=== PATIENT | female | born 1945 | race Caucasian/White ===

== ENCOUNTER 2019-07-28 10:46 | Observation (INO) | payer MEDICARE, SELFPAY ==
--- NOTE | ~2019-07-28 | CT_ITS ---
EXAMINATION: CT abdomen pelvis w con INDICATION: Diarrhea and vomiting TECHNIQUE: Computed tomographic images of the abdomen and pelvis were obtained after the administrati on of 100 cc of Omnipaque 350 intravenous contrast. The dose-length product (DLP) was 266.83 mGy-cm. Automated exposure control and iterative reconstruction technique were employed. COMPARISON: None available FINDINGS: The lung bases are clear. The heart size is normal. There is a small sliding hiatal hernia. The liver, spleen, pancreas, gallbladder, and adrenal glands are normal. There is a 1.3 cm stone of the left kidney. The right kidney is unremarkable. There is no hydronephrosis or hydroureter. There i s questionable mild wall thickening of the transverse colon. There is mild lumbar spondylosis. No pa thologically enlarged abdominal or pelvic lymph nodes are identified. There is no free intraperitonea l gas or evidence of bowel obstruction. IMPRESSION: 1. Possible mild wall thickening of the transverse colon which could reflect colitis or enteritis. Reviewed, dictated and finalized at location A. DER IMPRESSION: 1. Possible mild wall thickening of the transverse colon which could reflect co litis or enteritis.
--- NOTE | 2019-07-28 11:03 | ECG_ITS ---
Measurements Intervals [place] Rate: 93 P: 65 [place]: 159 QRS: 49 QRSD: 80 T: 26 QT: 329 QTc: 411 Interpretive Statements SINUS RHYTHM BORDERLINE ST-T WAVE ABNORMALITY- INF/LAT LEADS BASELINE WANDER- V4 BORDERLINE ECG Electronically Signed On 07-28-2019 13:19:07 ALLIGATOR HUNTER by Tez Marie D.O.
[2019-07-28 11:10] VITALS: BP 93/70; PULSE 92; RESP 18; TEMP 36.6; O2SAT 100
[2019-07-28 11:25] LABS: Basophils Absolute Auto 0.02 K/mm3 (0.00-0.10); Basophils Percent Auto 0.1 % (0.0-1.0); Eosinophils Absolute Auto 0.08 K/mm3 (0.02-0.50); Eosinophils Percent Auto 0.6 % (1.0-6.0); Hematocrit 41.7 % (35.0-42.0); Hemoglobin 13.9 g/dL (11.7-13.8); Immature Granulocyte Absolute 0.05 K/mm3 (0.00-0.00); Immature Granulocyte Percent A 0.4 % (0.0-0.0); Lymphocytes Absolute Auto 0.63 K/mm3 (1.10-4.50); Lymphocytes Percent Auto 4.6 % (18.0-42.0); Mean Corpuscular HGB Conc 33.3 g/dL (32.0-36.0); Mean Corpuscular Volume 90.1 fL (78.0-102.0); Mean Platelet Volume 9.6 fl (9.2-11.8); Monocytes Absolute Auto 0.84 K/mm3 (0.10-0.90); Monocytes Percent Auto 6.2 % (2.0-11.0); Neutrophils Percent Auto 88.1 % (50.0-70.0); Platelet Count Result 254 K/mm3 (150-420); Red Blood Count 4.63 M/mm3 (4.20-5.40); Red Cell Distribution Width 12.8 % (11.6-14.4); White Blood Count 13.6 K/mm3 (4.8-10.8)
[2019-07-28] MEDS: KETOROLAC 30 MG/ML VIAL (*BKC) IV PUSH (11:30)
[2019-07-28] MEDS: ONDANSETRON INJ 4 MG/2 ML VIAL IV PUSH (11:37)
[2019-07-28] MEDS: PANTOPRAZOLE SODIUM IV 40 MG VIAL IV PUSH (11:38)
[2019-07-28] MEDS: SODIUM CHLORIDE 0.9% IV 1,000 ML 999 ML IV CONT (11:39)
[2019-07-28 11:45] LABS: Alanine Aminotransferase 30 U/L (14-59); Albumin Level 4.5 g/dL (3.4-5.0); Alkaline Phosphatase 102 U/L (46-116); Anion Gap 16.4 mmol/L (7-16); Aspartate Amino Transferase 22 U/L (15-37); Bilirubin,Total 0.6 mg/dL (0.00-1.00); Blood Urea Nitrogen 22 mg/dL (7-18); Calcium 10.2 mg/dL (8.5-10.1); Carbon Dioxide 25 mmol/L (21-32); Chloride 105 mmol/L (98-108); Estimated CRCL calculation 32 ml/min; Estimated Glomerular Filt Rate 49; Glucose 103 mg/dL (70-99); Lactic Acid Reflex 1.8 mmol/L (0.4-2.0); Lipase 146 U/L (73-393); Osmolality Calculated 297 mOsm/kg (285-295); Potassium 4.4 mmol/L (3.5-5.1); Sodium 142 mmol/L (136-145); Total Protein 8.7 g/dL (6.4-8.2)
[2019-07-28 11:49] LABS: Troponin I < 0.02 ng/mL (0.00-0.056)
[2019-07-28 12:35] LABS: Thyroid Stimulating Hormone 2.75 uIU/mL (0.36-3.74)
--- NOTE | 2019-07-28 12:42 | ED.ABDPAIN ---
HPI - Abdominal Pain General Chief Complaint: Abdominal Pain Stated Complaint: N/V Related Data Home Medications Medication Instructions Recorded Confirmed hydrochlorothiazide 12.5 mg PO DAILY 07/28/19 07/28/19 lisinopril 20 mg PO DAILY 07/28/19 07/28/19 omeprazole 40 mg PO DAILY 07/28/19 07/28/19 propranolol 20 mg PO Q12H 07/28/19 07/28/19 simvastatin 20 mg PO DAILY 07/28/19 07/28/19 Allergies Allergy/AdvReac Type Severity Reaction Status Date / Time No Known Allergies Allergy Verified 07/28/19 11:30 Course Vital Signs Vital signs: Vital Signs Temperature 36.6 C 07/28/19 11:10 Pulse Rate 92 07/28/19 11:10 Respiratory Rate 18 07/28/19 11:10 Blood Pressure 93/70 L 07/28/19 11:10 Pulse Oximetry 100 07/28/19 11:10 Temperature 36.6 C 07/28/19 11:10 Pulse Rate 92 07/28/19 11:10 Respiratory Rate 18 07/28/19 11:10 Blood Pressure 93/70 L 07/28/19 11:10 Pulse Oximetry 100 07/28/19 11:10 MDM - Abdominal Pain Lab Data Result diagrams: 07/28/19 11:18 07/28/19 11:18 Labs: Lab Results 07/28/19 07/28/19 07/28/19 Range/Units 11:07 11:18 11:18 WBC 13.6 H (4.8-10.8) K/mm3 RBC 4.63 (4.20-5.40) M/mm3 Hgb 13.9 H (11.7-13.8) g/dL Hct 41.7 (35.0-42.0) % MCV 90.1 (78.0-102.0) fL MCH 30.0 (27.0-31.0) pg MCHC 33.3 (32.0-36.0) g/dL RDW 12.8 (11.6-14.4) % Plt Count 254 (150-420) K/mm3 MPV 9.6 (9.2-11.8) fl Immature Gran % (Auto) 0.4 H (0.0-0.0) % Neut % (Auto) 88.1 H (50.0-70.0) % Lymph % (Auto) 4.6 L (18.0-42.0) % Sevier % (Auto) 6.2 (2.0-11.0) % Eos % (Auto) 0.6 L (1.0-6.0) % Baso % (Auto) 0.1 (0.0-1.0) % Lymph # (Auto) 0.63 L (1.10-4.50) K/mm3 Sevier # (Auto) 0.84 (0.10-0.90) K/mm3 Eos # (Auto) 0.08 (0.02-0.50) K/mm3 Baso # (Auto) 0.02 (0.00-0.10) K/mm3 Abs Immat Gran (auto) 0.05 H (0.00-0.00) K/mm3 Absolute Neuts (auto) 12.0 H (1.7-7.2) K/mm3 Absolute Nucleated RBC 0.00 (0.00-0.00) K/mm3 Nucleated RBC % 0.0 (0-0.0) % Sodium 142 (136-145) mmol/L Potassium 4.4 (3.5-5.1) mmol/L Chloride 105 (98-108) mmol/L Carbon Dioxide 25 (21-32) mmol/L Anion Gap 16.4 H (7-16) mmol/L BUN 22 H (7-18) mg/dL Creatinine 1.10 H (0.55-1.02) mg/dL Estim Creat Clear Calc 32 ml/min Estimated GFR 49 L (59 - ) Glucose 103 H (70-99) mg/dL Calculated Osmolality 297 H (285-295) mOsm/kg Lactic Acid (0.4-2.0) mmol/L Calcium 10.2 H (8.5-10.1) mg/dL Total Bilirubin 0.6 (0.00-1.00) mg/dL AST 22 (15-37) U/L ALT 30 (14-59) U/L Alkaline Phosphatase 102 (46-116) U/L Troponin I < 0.02 (0.00-0.056) ng/mL Total Protein 8.7 H (6.4-8.2) g/dL Albumin 4.5 (3.4-5.0) g/dL Lipase 146 (73-393) U/L TSH 2.75 (0.36-3.74) uIU/mL 07/28/19 Range/Units 11:18 WBC (4.8-10.8) K/mm3 RBC (4.20-5.40) M/mm3 Hgb (11.7-13.8) g/dL Hct (35.0-42.0) % MCV (78.0-102.0) fL MCH (27.0-31.0) pg MCHC (32.0-36.0) g/dL RDW (11.6-14.4) % Plt Count (150-420) K/mm3 MPV (9.2-11.8) fl Immature Gran % (Auto) (0.0-0.0) % Neut % (Auto) (50.0-70.0) % Lymph % (Auto) (18.0-42.0) % Sevier % (Auto) (2.0-11.0) % Eos % (Auto) (1.0-6.0) % Baso % (Auto) (0.0-1.0) % Lymph # (Auto) (1.10-4.50) K/mm3 Sevier # (Auto) (0.10-0.90) K/mm3 Eos # (Auto) (0.02-0.50) K/mm3 Baso # (Auto) (0.00-0.10) K/mm3 Abs Immat Gran (auto) (0.00-0.00) K/mm3 Absolute Neuts (auto) (1.7-7.2) K/mm3 Absolute Nucleated RBC (0.00-0.00) K/mm3 Nucleated RBC % (0-0.0) % Sodium (136-145) mmol/L Potassium (3.5-5.1) mmol/L Chloride (98-108) mmol/L Carbon Dioxide (21-32) mmol/L Anion Gap (7-16) mmol/L BUN (7-18) mg/dL Creatinine (0.55-1.02) mg/dL Estim Creat Clear Calc ml/min Estimated GFR (59 - ) Glucose (70-99) mg/dL Calculated Osmolality (285-295
[2019-07-28 13:11] LABS: Appearance Urine Clear (Clear); Bilirubin Urine Negative (Negative); Blood Urine Negative (Negative); Color Urine Yellow (Yellow); Glucose Urine UA Negative (Negative); Ketones Urine Negative (Negative); Protein Urine Negative (Negative); Specific Grav Ur 1.015 (1.010-1.020); Urobilinogen Urine 0.2 mg/dL (0.2-1.0); pH Urine 5.5 (5.0-8.0)
[2019-07-28 13:14] LABS: Add Urine Microscopic? NO
[2019-07-28 13:29] VITALS: BP 106/61; PULSE 92; RESP 18; TEMP 36.6; O2SAT 97
[2019-07-28 13:50] VITALS: BP 100/55; PULSE 84; RESP 18; TEMP 37.3; O2SAT 100; BMI 24.7
[2019-07-28 14:00] VITALS: BP 100/55; PULSE 84; RESP 18; TEMP 37.3; O2SAT 100
--- NOTE | 2019-07-28 14:01 | PC.NURSE ---
Admitted to an observation bed for dehydration and colitits, started having abdominal discomfort last night, worse this am and vomiting and diarrhea this am about 0600, feels weak
--- NOTE | 2019-07-28 15:54 | PC.NURSE ---
Napping, no evidence of pain noted, call light in reach, is on clear liquid diet as ordered
[2019-07-28 16:02] LABS: Leukocyte Esterase Ur Negative LEU/UL (Negative); Nitrate Urine Negative (Negative)
--- NOTE | 2019-07-28 16:11 | PM.IMHP ---
H&P: HPI History of Present Illness Chief complaint: N/V <Ilene Cisneros NP - Last Filed: 07/30/19 05:37> Narrative: Nguyen Herron is a 74 year old female admitted with vomiting and diarrhea, nausea, malaise, dehydration, LUQ abdominal discomfort through to the back discomfort. Yesterday, all evening, she reports having lower back and abdominal discomfort. She went to bed and was awakened at 6am with the urgency to stool. She started with brown soft stools that changed to clear liquid diarrhea. She stated that she was unable to leave the toilet, without having diarrhea; even having incontinence in her clothing. She also started vomiting around 8:30am this morning, and reports at least 5 episodes of vomiting. Her liquid stooling was not stopping on its own and she was feeling light-headed and weaker, so she felt it best to drive to the ED, taking her trash bucket to vomit in on the way. 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 She has a rectal stimulator implant for the last 1 year, placed at [place]. The stimulator is to help control her stool incontinence and rectal leaking of BM. She has not had any recent Antibx., denies any other sick family/friends, denies food poisoning concerns, denies raw fish consumption, and stated that her only eating out was [employer] hamburger yesterday. Her last and most similar episode of GI upset was a couple months ago, in April 2019. When she had about 4 episodes of watery diarrhea about 2 hours apart, but denies any vomiting at that time. She stated that she never has vomiting, only diarrhea issues typically. <Ilene Cisneros NP - Last Filed: 07/30/19 05:37> Review of Systems Review of Systems: All systems reviewed & are unremarkable except as noted in HPI and below <Ilene Cisneros NP - Last Filed: 07/30/19 05:37> [facility] Family History Family History: Family History Father Bladder cancer Mother Abdominal malignancy Abdominal mass Son No problems noted. <Ilene Cisneros NP - Last Filed: 07/30/19 05:37> Social History Social History: Social History Smoking status: Never smoker Second hand tobacco smoke exposure: Yes (none for 7 years) Alcohol intake: never Substance use: never Gender identity (if verbalized by the patient): Female Spiritual care concerns: No Agree to blood products: Yes <Ilene Cisneros NP - Last Filed: 07/30/19 05:37> Meds Home Medications and Allergies Home medications: Home Medications Medication Instructions Recorded Confirmed Type hydrochlorothiazide 12.5 mg PO DAILY 07/28/19 07/28/19 History lisinopril 20 mg PO DAILY 07/28/19 07/28/19 History omeprazole 40 mg PO DAILY 07/28/19 07/28/19 History propranolol 20 mg PO Q12H 07/28/19 07/28/19 History simvastatin 20 mg PO DAILY 07/28/19 07/28/19 History <Ilene Cisneros NP - Last Filed: 07/30/19 05:37> Allergies/Adverse reactions: Allergies Allergy/AdvReac Type Severity Reaction Status Date / Time No Known Allergies Allergy Verified 07/28/19 11:30 <Ilene Cisneros NP - Last Filed: 07/30/19 05:37> Vital Signs Vital Signs - 24 hr 07/28/19 11:10 07/28/19 13:29 07/28/19 13:50 Temperature 36.6 C 36.6 C 37.3 C Pulse Rate 92 92 84 Respiratory Rate 18 18 18 Blood Pressure 93/70 L 106/61 100/55 L Pulse Oximetry 100 97 100 07/28/19 14:00 Temperature 37.3 C Pulse Rate 84 Respiratory Rate 18 Blood Pressure 100/55 L Pulse Oximetry 100 <Ilene Cisneros NP - Last Filed: 07/30/19 05:37> Exam Narrative: Exam Narrative: Pleasant, somewhat nauseated and upset stomach, tender and hyperactive bowels. <Ilene Cisneros NP - Last Filed: 07/30/19 05:37> Const: General: cooperative, healthy appearing and in distress mild and moderate <Ilene Cisneros NP - Last Renato
--- NOTE | 2019-07-28 17:20 | PC.NURSE ---
advised of stool samples needed, states doesn't feel like she will have any more, what was coming out at home was clear, no stools since admit
[2019-07-28] MEDS: SODIUM CHLORIDE 0.9% IV 1,000 ML 100 ML IV CONT (17:29)
--- NOTE | 2019-07-28 18:26 | PC.NURSE ---
fluids infusing, denies needs, no worsening pain, no vomiting, tolerated clear liquid tray
[2019-07-28 18:31] LABS: Magnesium 1.9 mg/dL (1.8-2.4)
[2019-07-28 22:00] VITALS: BP 101/56; PULSE 78; RESP 18; TEMP 36.3; O2SAT 99
[2019-07-29] MEDS: SODIUM CHLORIDE 0.9% IV 1,000 ML 100 ML IV CONT ×2 (03:38→13:58)
[2019-07-29] MEDS: ACETAMINOPHEN 325 MG TABLET 650 MG PO (03:43)
[2019-07-29] MEDS: ONDANSETRON INJ 4 MG/2 ML VIAL IV PUSH ×2 (05:00→09:57)
[2019-07-29 05:54] VITALS: BP 104/64; PULSE 82; RESP 18; TEMP 36.3; O2SAT 97
[2019-07-29 05:55] LABS: Basophils Absolute Auto 0.01 K/mm3 (0.00-0.10); Basophils Percent Auto 0.2 % (0.0-1.0); Eosinophils Absolute Auto 0.15 K/mm3 (0.02-0.50); Eosinophils Percent Auto 2.7 % (1.0-6.0); Hematocrit 32.8 % (35.0-42.0); Hemoglobin 10.6 g/dL (11.7-13.8); Immature Granulocyte Absolute 0.01 K/mm3 (0.00-0.00); Immature Granulocyte Percent A 0.2 % (0.0-0.0); Lymphocytes Absolute Auto 1.31 K/mm3 (1.10-4.50); Lymphocytes Percent Auto 23.4 % (18.0-42.0); Mean Corpuscular HGB Conc 32.3 g/dL (32.0-36.0); Mean Corpuscular Hemoglobin 29.9 pg (27.0-31.0); Mean Corpuscular Volume 92.4 fL (78.0-102.0); Mean Platelet Volume 10.3 fl (9.2-11.8); Monocytes Absolute Auto 0.34 K/mm3 (0.10-0.90); Monocytes Percent Auto 6.1 % (2.0-11.0); Neutrophils Absolute Auto 3.8 K/mm3 (1.7-7.2); Neutrophils Percent Auto 67.4 % (50.0-70.0); Platelet Count Result 187 K/mm3 (150-420); Red Blood Count 3.55 M/mm3 (4.20-5.40); Red Cell Distribution Width 13.2 % (11.6-14.4); White Blood Count 5.6 K/mm3 (4.8-10.8)
[2019-07-29 06:14] LABS: Alanine Aminotransferase 23 U/L (14-59); Albumin Level 3.3 g/dL (3.4-5.0); Alkaline Phosphatase 71 U/L (46-116); Anion Gap 12.1 mmol/L (7-16); Aspartate Amino Transferase 18 U/L (15-37); Bilirubin,Total 0.6 mg/dL (0.00-1.00); Blood Urea Nitrogen 18 mg/dL (7-18); Calcium 8.6 mg/dL (8.5-10.1); Carbon Dioxide 28 mmol/L (21-32); Chloride 109 mmol/L (98-108); Estimated CRCL calculation 38 ml/min; Estimated Glomerular Filt Rate 59; Glucose 87 mg/dL (70-99); Osmolality Calculated 300 mOsm/kg (285-295); Potassium 4.1 mmol/L (3.5-5.1); Sodium 145 mmol/L (136-145); Total Protein 6.3 g/dL (6.4-8.2)
[2019-07-29 08:14] VITALS: BP 108/58; PULSE 75; RESP 18; TEMP 36.6; O2SAT 95
[2019-07-29] MEDS: PANTOPRAZOLE SODIUM IV 40 MG VIAL IV PUSH (09:11)
--- NOTE | 2019-07-29 10:00 | PC.NURSE ---
nauseated, given IV zofran for complaint
[2019-07-29] MEDS: ACETAMINOPHEN 325 MG TABLET PO (10:19)
[2019-07-29] MEDS: KETOROLAC 15 MG/ML VIAL (*BKC) IV PUSH (10:20)
[2019-07-29] MEDS: FLUTICASONE PROPIONATE 0.05% NA SPR 16 GM BTL (*BKC) 2 SPRAY NASAL (10:29)
--- NOTE | 2019-07-29 10:59 | PC.NURSE ---
SBA up to void, pain at a 5, nausea ok, belching
--- NOTE | 2019-07-29 12:35 | PC.NURSE ---
EAting lunch, feeling better, no further nausea
[2019-07-29 13:35] VITALS: BP 111/66; PULSE 86; RESP 18
[2019-07-29 13:54] VITALS: BP 111/78; BP 116/71; PULSE 88; PULSE 93
--- NOTE | 2019-07-29 13:55 | PC.NURSE ---
orthostatic vitals done, fluids discontinued, up independent in room
[2019-07-29 14:00] VITALS: BP 111/78; PULSE 93; RESP 18; TEMP 36.1; O2SAT 95
--- NOTE | 2019-07-29 14:35 | PC.NURSE ---
discharge to home, no questions upon discharge, copy of instructons to patient
--- NOTE | 2019-07-29 15:00 | PM.DS ---
DS: Diagnosis Admitting Diagnosis Admitting Diagnosis: Noninfective gastroenteritis and colitis, unspecified <Ilene Cisneros NP - Last Filed: 08/12/19 14:19> Discharge Diagnosis (1) Colitis: Code(s): K52.9 - Noninfective gastroenteritis and colitis, unspecified <Ilene Cisneros NP - Last Filed: 08/12/19 14:19> Status: Acute <Ilene Cisneros NP - Last Filed: 08/12/19 14:19> Assessment and Plan: CT Abdomen showed: small sliding hiatal hernia. The liver, spleen, pancreas, gallbladder, and adrenal glands are normal. There is a 1.3 cm stone of the left kidney. The right kidney is unremarkable. There is no hydronephrosis or hydroureter. There is questionable mild wall thickening of the transverse colon. There is mild lumbar spondylosis. No pathologically enlarged abdominal or pelvic lymph nodes are identified. There is no free intraperitoneal gas or evidence of bowel obstruction. IMPRESSION: 1. Possible mild wall thickening of the transverse colon which could reflect colitis or enteritis. IVFs continuous at 100ml/hr encourage oral hydration zofran PRN Protonix IV I/O strict clear liquid diet with advancing diet in the morning to Soft Mcpherson foods Tolerated oral hydration and breakfast/lunch eating 25-50% of her meals with no N/V/D. No BM output today at all. F/U with her PCP Dr. Mcfarland, her colo-rectal surgeon, and a GI specialist after discharge. ordered outpatient stool cultures to be done, if her diarrhea returns. <Ilene Cisneros NP - Last Filed: 08/12/19 14:19> (2) Admitted with dehydration: Code(s): Z78.9 - Other specified health status <Ilene Cisneros NP - Last Filed: 08/12/19 14:19> Status: Acute <Ilene Cisneros NP - Last Filed: 08/12/19 14:19> Assessment and Plan: IVFs continuous at 100ml/hr encourage oral hydration zofran PRN Protonix IV I/O strict clear liquid diet with advancing diet in the morning to Soft Mcpherson foods Prior to Discharge she had tolerated 2 meals with no N/V/D/ after those meals. She is keeping oral hydration down. She has not had any BMs or any stool output at all since admission. Tolerated oral hydration and breakfast/lunch eating 25-50% of her meals with no N/V/D. No BM output today at all. F/U with her PCP Dr. Mcfarland, her colo-rectal surgeon, and a GI specialist after discharge. ordered outpatient stool cultures to be done, if her diarrhea returns. <Ilene Cisneros NP - Last Filed: 08/12/19 14:19> DS: Summary Time Spent with Patient Time attestation: Total time spent providing and/or coordinating discharge services: <Ilene Cisneros NP - Last Filed: 08/12/19 14:19> Exam Narrative: Exam Narrative: Pleasant, somewhat nauseated and upset stomach, tender and hyperactive bowels. <Ilene Cisneros NP - Last Filed: 08/12/19 14:19> Const: General: cooperative, healthy appearing and in distress mild and moderate <Ilene Cisneros NP - Last Filed: 08/12/19 14:19> Nutritional Appearance: average body habitus and well nourished <Ilene Cisneros NP - Last Filed: 08/12/19 14:19> Orientation/consciousness: oriented to person and oriented x3 <Ilene Cisneros NP - Last Filed: 08/12/19 14:19> Limitations: no limitations <Ilene Cisneros NP - Last Filed: 08/12/19 14:19> Other: Pleasant, somewhat nauseated and upset stomach, tender and hyperactive bowels. <Ilene Cisneros NP - Last Filed: 08/12/19 14:19> HENMT: Head: normal to inspection <Ilene Cisneros NP - Last Filed: 08/12/19 14:19> Other: Pleasant, somewhat nauseated and upset stomach, tender and hyperactive bowels. <Ilene Cisneros NP - Last Filed: 08/12/19 14:19> Eyes: General: appearance normal, both eyes and all related structures <Ilene Cisneros NP - Last Filed: 08/12/19 14:19> Eyelids: eyelids normal <Ilene Cisneros NP - Last Filed: 08/12/19 14:19> Conjunctivae: conjunctivae normal <Ilene L. Cisneros, VACUUM FILTER OPERATOR - Last Filed: 08/12/19 14:19> Pupils: VITALY <Ilene Haley
--- NOTE | 2019-07-31 13:54 | PC.NURSE ---
Discharge call back no answer unable to contact, left a message.
--- NOTE | 2019-08-01 12:33 | PC.NURSE ---
Discharge Call Back Patient returned call. Patient has follow-up appointment with Dr. Mcfarland. Medications were not sent to [facility] initially but hospital staff got it straightened out. Patient stated she understood her Discharge instructions written and verbal.
== END 2019-07-29 14:52 | disposition home or self-care (01) ==
LOC: CHSED 13:08 → CHS2ND 13:12
PROVIDERS: Nurse Practitioner; Admitting Provider Emergency Medicine; Emergency Provider Emergency Medicine; Visit Provider Emergency Medicine
DX: K52.9 Noninfective gastroenteritis and colitis, unspecified (principal); E86.0 Dehydration; E78.5 Hyperlipidemia, unspecified; I10 Essential (primary) hypertension
CPT/HCPCS: 36415; 74177; 80053; 81003; 83605; 83690; 83735; 84100; 84443; 84484; 85025; 87040; 87185; 93005; 96361; 96374; 96375; 96376; 99283; 99285; A9270; C9113; G0378; J1885; J2405; J7030; Q9967

== ENCOUNTER 2019-10-24 10:18 | Outpatient (CLI) | payer MEDICARE, SELFPAY ==
--- NOTE | ~2019-10-24 | DEXA_ITS ---
BMD(1) Young-Adult(2) Age-Matched(3) Region (g/cm2) T-score Z-score WHO Classification L1 1.003 -1.1 0.7 Osteopenia L2 1.006 -1.7 0.1 Osteopenia L3 0.995 -1.8 0.1 Osteopenia L4 1.225 0.0 1.9 Normal L2-L3 1.000 -1.7 0.1 Osteopenia Trend: L2-L3 Change vs Change vs Measured Age BMD(1) Baseline Previous Date [age]years) (g/cm2) (%) (%) 10/24/2019 [age] 1.000 baseline - 1 - Statistically 68% of repeat scans fall within 1SD (+- 0.020 g/cm2 for AP Spine L2-L3) 2 - [place] (Combined NHANES (ages 20-30) / Tidy Books (ages 20-40)) AP Spine Reference Population (v112) 3 - Matched for Age, Weight (females 25-100 kg), Ethnic 11 - World Health Organization - Definition of Osteoporosis and Osteopenia for Women: Normal = T-score at or above -1.0 SD; Osteopenia = T-score between -1.0 and -2.5 SD; Osteoporosis = T-score at or below -2.5 SD; (WHO definitions only apply when a young healthy Women reference database is used to determine T-scores.) Printed: 10/24/2019 10:50:39 AM (13.60)76:3.00:50.00:12.0 0.00:10.56 0.60x1.05 21.6:%Fat=36.2% 0.00:0.00 0.00:0.00 Filename: [id number] Scan Mode: Standard;OneScan 37.0 UpTo [id number] BMD(1) Young-Adult(2,7) Age-Matched(3) Region (g/cm2) T-score Z-score WHO Classification Neck Left 0.780 -1.9 0.0 Osteopenia Right 0.811 -1.6 0.2 Osteopenia Mean 0.795 -1.7 0.1 Osteopenia Difference 0.031 0.2 0.2 - Total Left 0.760 -2.0 -0.3 Osteopenia Right 0.778 -1.8 -0.1 Osteopenia Mean 0.769 -1.9 -0.2 Osteopenia Difference 0.017 0.1 0.1 - Hip [place] Length Comparison (mm) (Right = 97.2 mm) (Mean = 103.0 mm) (Left = 97.5 mm) Trend: Total Mean Change vs Change vs Measured Age BMD(1) Baseline Previous Date (years) (g/cm2) (%) (%) 10/24/2019 74.7 0.769 baseline - 1 - Statistically 68% of repeat scans fall within 1SD (+- 0.010 g/cm2 for DualFemur Total) 2 - [place] (Combined NHANES (ages 20-30) / [employer] (ages 20-40)) Femur Reference Population (v112) 3 - Matched for Age, Weight (females 25-100 kg), Ethnic 7 - DualFemur Total T-score difference is 0.1. Asymmetry is None. 11 - World Health Organization - Definition of Osteoporosis and Osteopenia for Women: Normal = T-score at or above -1.0 SD; Osteopenia = T-score between -1.0 and -2.5 SD; Osteoporosis = T-score at or below -2.5 SD; (WHO definitions only apply when a young healthy Women reference database is used to determine T-scores.) Printed: 10/24/2019 10:50:40 AM (13.60); Filename: [id number]; Right Femur; 17.6:%Fat=29.7%; Neck Angle (deg)= 66; Scan Mode: Standard 37.0 uGy; Left Femur; 16.5:%Fat=32.6%; Neck Angle (deg)= 63; Scan Mode: Standard 37.0 uGy [employer] [id number] Dear Praveena Mcfarland, Your patient Nguyen Herron completed a BMD test on 10/24/2019 using the [employer] DXA System (analysis version: 13.60) manufactured by [employer]. The following summarizes the results of our evaluation. PATIENT BIOGRAPHICAL: Name: Nguyen Herron Date: 1945 Height: 62.0 in. Gender: Female Exam
[2019-10-24 13:04] LABS: Basophils Absolute Auto 0.01 K/mm3 (0.00-0.10); Basophils Percent Auto 0.2 % (0.0-1.0); Eosinophils Absolute Auto 0.24 K/mm3 (0.02-0.50); Hematocrit 38.1 % (35.0-42.0); Hemoglobin 12.5 g/dL (11.7-13.8); Immature Granulocyte Absolute 0.01 K/mm3 (0.00-0.00); Immature Granulocyte Percent A 0.2 % (0.0-0.0); Lymphocytes Percent Auto 28.3 % (18.0-42.0); Mean Corpuscular HGB Conc 32.8 g/dL (32.0-36.0); Mean Corpuscular Hemoglobin 29.8 pg (27.0-31.0); Mean Corpuscular Volume 90.7 fL (78.0-102.0); Mean Platelet Volume 9.8 fl (9.2-11.8); Monocytes Absolute Auto 0.46 K/mm3 (0.10-0.90); Monocytes Percent Auto 7.7 % (2.0-11.0); Neutrophils Absolute Auto 3.6 K/mm3 (1.7-7.2); Neutrophils Percent Auto 59.6 % (50.0-70.0); Platelet Count Result 263 K/mm3 (150-420); Red Cell Distribution Width 12.9 % (11.6-14.4)
[2019-10-24 14:04] LABS: Erythrocyte Sedimentation Rate 24 mm/hr (0-20)
[2019-10-24 14:07] LABS: Alanine Aminotransferase 32 U/L (14-59); Albumin Level 4.5 g/dL (3.4-5.0); Alkaline Phosphatase 95 U/L (46-116); Aspartate Amino Transferase 25 U/L (15-37); Bilirubin,Total 0.5 mg/dL (0.00-1.00); Blood Urea Nitrogen 20 mg/dL (7-18); Calcium 9.3 mg/dL (8.5-10.1); Carbon Dioxide 28 mmol/L (21-32); Chloride 105 mmol/L (98-108); Estimated Glomerular Filt Rate 44; Glucose 86 mg/dL (70-99); Osmolality Calculated 295 mOsm/kg (285-295); Sodium 142 mmol/L (136-145); Total Protein 8.2 g/dL (6.4-8.2)
[2019-10-24 14:09] LABS: CRP < 0.2 mg/dL (0.0-0.9)
[2019-10-26 15:39] LABS: H pylori Ag Stool Not Detected (Not Detected)
[2019-10-31 08:34] LABS: Reference Lab Test Name CALPROTECTIN
[2019-11-02 21:43] LABS: Rotavirus Stool Not Detected
[2019-11-06 08:38] LABS: Norovirus RNA PCR, Stool NOT DETECTED
== END 2019-10-24 10:19 | disposition home or self-care (01) ==
PROVIDERS: Nurse Practitioner; PCP Internal Medicine; Visit Provider Internal Medicine
DX: R19.7 Diarrhea, unspecified (principal); M81.0 Age-related osteoporosis without current pathological fracture
CPT/HCPCS: 36415; 77080; 80053; 83993; 85025; 85652; 86140; 87324; 87338; 87425; 87798

== ENCOUNTER 2019-10-26 12:30 | Outpatient (CLI) | payer MEDICARE, SELFPAY | END 2019-10-26 12:31 | disposition home or self-care (01) | LOC: CHSLAB 12:33 | PROVIDERS: PCP Internal Medicine; Visit Provider Internal Medicine | DX: R19.7 Diarrhea, unspecified (principal) | CPT/HCPCS: 83497 ==

== ENCOUNTER 2020-01-24 15:12 | Outpatient (CLI) | payer MEDICARE, SELFPAY ==
--- NOTE | ~2020-01-24 | CT_ITS ---
EXAMINATION: CT abdomen pelvis w con EXAM DATE: 01/24/2020 17:09 INDICATION: Nausea vomiting diarrhea, fever chills low abdominal pain, symptoms 3 days. History of co litis. TECHNIQUE: Spiral CT of the abdomen and pelvis was performed following intravenous injection of 100 m L Omnipaque 350. Axial, coronal and sagittal images were reviewed. The dose-length product (DLP) fo r this examination was 363.19 mGy-cm. The exposure was tailored according to patient size (auto mA e xposure control), and iterative reconstruction (ASIR) was used as additional dose reduction technique . Comparison is made to prior examination from 07/28/2019. FINDINGS: The liver, spleen, adrenal glands and pancreas are unremarkable. Gallbladder is unremarkab le. No biliary obstruction. Regions of heterogeneous left renal enhancement, and there is bilateral ureteral urothelial enhancement. Appearance is suspicious for upper urinary tract infection and left -sided pyelonephritis. Please clinically correlate with urinalysis. No obstructing stones. The uteru s is not identified and has likely been surgically resected. The bladder is unremarkable. There is no retroperitoneal or pelvic lymphadenopathy. There is mild scattered arteriosclerotic disease. The appendix is normal. There is small sliding gastroesophageal hiatal hernia. There is expected am ount of colonic stool. No free intraperitoneal gas. Narrow cardiac silhouette with hyperinflated appearing lungs. The lung bases are unremarkable. There are no osteoblastic or osteolytic lesions i dentified. There is a sacral neural stimulator. There is severe lower lumbar facet arthropathy. IMPRESSION: 1. Findings suspicious for left pyelonephritis and bilateral upper urinary tract infections. Correla te with urinalysis. 2. Small hiatal hernia. Reviewed, dictated and finalized at location A. IMPRESSION: 1. Findings suspicious for left pyelonephritis and bilateral upper urinary tra ct infections. Correlate with urinalysis. 2. Small hiatal hernia.
[2020-01-24 15:33] LABS: Basophils Absolute Auto 0.01 K/mm3 (0.00-0.10); Basophils Percent Auto 0.1 % (0.0-1.0); Hematocrit 35.2 % (35.0-42.0); Hemoglobin 11.8 g/dL (11.7-13.8); Immature Granulocyte Absolute 0.03 K/mm3 (0.00-0.00); Immature Granulocyte Percent A 0.3 % (0.0-0.0); Lymphocytes Absolute Auto 1.05 K/mm3 (1.10-4.50); Mean Corpuscular HGB Conc 33.5 g/dL (32.0-36.0); Mean Corpuscular Hemoglobin 30.1 pg (27.0-31.0); Mean Corpuscular Volume 89.8 fL (78.0-102.0); Mean Platelet Volume 9.7 fl (9.2-11.8); Monocytes Absolute Auto 0.77 K/mm3 (0.10-0.90); Neutrophils Absolute Auto 7.7 K/mm3 (1.7-7.2); Neutrophils Percent Auto 80.6 % (50.0-70.0); Platelet Count Result 211 K/mm3 (150-420); Red Blood Count 3.92 M/mm3 (4.20-5.40); Red Cell Distribution Width 12.6 % (11.6-14.4); White Blood Count 9.6 K/mm3 (4.8-10.8)
[2020-01-24 15:37] LABS: Add Urine Microscopic? YES; Appearance Urine Cloudy (Clear); Bilirubin Urine Negative (Negative); Blood Urine 2+ (Negative); Color Urine Yellow (Yellow); Glucose Urine UA Negative (Negative); Ketones Urine Trace (Negative); Leukocyte Esterase Ur 2+ (Negative); Nitrate Urine Positive (Negative); Protein Urine 2+ (Negative); Specific Grav Ur 1.025 (1.010-1.020); Urobilinogen Urine 0.2 mg/dL (0.2-1.0)
[2020-01-24 15:46] LABS: Bacteria Urine 4+ /hpf; Squamous Epithelial Cell Urine None seen /hpf (Few); WBC Urine >75 /hpf (0-3)
[2020-01-24 15:50] LABS: Alanine Aminotransferase 27 U/L (14-59); Albumin Level 3.7 g/dL (3.4-5.0); Alkaline Phosphatase 92 U/L (46-116); Amylase 55 U/L (25-115); Anion Gap 14.6 mmol/L (7-16); Aspartate Amino Transferase 21 U/L (15-37); Bilirubin,Total 0.8 mg/dL (0.00-1.00); Blood Urea Nitrogen 18 mg/dL (7-18); Calcium 9.4 mg/dL (8.5-10.1); Carbon Dioxide 27 mmol/L (21-32); Chloride 98 mmol/L (98-108); Estimated Glomerular Filt Rate 44; Glucose 101 mg/dL (70-99); Lipase 67 U/L (73-393); Osmolality Calculated 283 mOsm/kg (285-295); Potassium 3.6 mmol/L (3.5-5.1); Sodium 136 mmol/L (136-145)
== END 2020-01-24 15:13 | disposition home or self-care (01) ==
PROVIDERS: PCP Internal Medicine; Visit Provider Internal Medicine
DX: R19.7 Diarrhea, unspecified (principal); R50.9 Fever, unspecified; R10.9 Unspecified abdominal pain; R11.10 Vomiting, unspecified
CPT/HCPCS: 36415; 74177; 80053; 81001; 82150; 83690; 85025; 87040; 87077; 87086; 87088; 87186; Q9965

== ENCOUNTER 2020-06-30 13:58 | Outpatient (CLI) | payer MEDICARE, SELFPAY ==
--- NOTE | ~2020-06-30 | CT_ITS ---
EXAMINATION: CT abdomen pelvis w con DATE: 06/30/2020 15:04 INDICATION: Acute onset low back pain and one week of worsening diarrhea. TECHNIQUE: Computed tomography (CT) of the abdomen and pelvis was performed with 100 mL Omnipaque-350 intravenous contrast. Automated exposure control and iterative reconstruction technique were employe d. The dose-length product was 279.72 mGy-cm. COMPARISON: 02/03/2020 and 07/28/2019 FINDINGS: Visualized lung bases are clear. Heart size is normal. No pericardial or pleural effusion. Small slid ing-type hiatal hernia. Liver, gallbladder, spleen, pancreas, bilateral adrenal glands are normal. No interval change in mild left hydroureteronephrosis and mild dilation of the right extrarenal pelvis with transition points at the bilateral ureteropelvic junctions with no evident no interval obstructi ng stones or mass at this location or in the more distal ureters. Unchanged 10 x 7 mm nonobstructing stone in the mid left kidney. 9 mm low-attenuation left renal cyst. Bladder is normal. The uterus is not identified and has likely been surgically resected. Bowels including the appendix are normal. Sac ral nerve root stimulator projecting over the right posterior iliac spine with stimulator lead extend ing from posterior to anterior through the right S1 neural foramen. No free intraperitoneal gas or fl uid. No pathologically enlarged abdominal or pelvic lymphadenopathy. Grade 1 anterolisthesis L4 on L5 and L5 on S1 with associated bilateral severe facet osteoarthritis. IMPRESSION: 1. Chronic mild left hydronephrosis and right renal pelviectasis both with transition point at the ur eteropelvic junction where there is no evident obstructing stone or mass. Nonobstructing [address] one at the mid left kidney. 2. Small sliding-type hiatal hernia. Reviewed, dictated and finalized at location B. IMPRESSION: 1. Chronic mild left hydronephrosis and right renal pelviectasis both with lopez sition point at the ureteropelvic junction where there is no evident obstructin g stone or mass. Nonobstructing 10 x 7 mm stone at the mid left kidney. 2. Small sliding-type hiatal hernia.
[2020-06-30 14:09] LABS: Basophils Absolute Auto 0.01 K/mm3 (0.00-0.10); Basophils Percent Auto 0.1 % (0.0-1.0); Eosinophils Absolute Auto 0.12 K/mm3 (0.02-0.50); Eosinophils Percent Auto 1.7 % (1.0-6.0); Hematocrit 37.2 % (35.0-42.0); Hemoglobin 12.3 g/dL (11.7-13.8); Immature Granulocyte Absolute 0.02 K/mm3 (0.00-0.00); Immature Granulocyte Percent A 0.3 % (0.0-0.0); Lymphocytes Absolute Auto 1.52 K/mm3 (1.10-4.50); Lymphocytes Percent Auto 21.7 % (18.0-42.0); Mean Corpuscular HGB Conc 33.1 g/dL (32.0-36.0); Mean Corpuscular Hemoglobin 30.4 pg (27.0-31.0); Mean Corpuscular Volume 92.1 fL (78.0-102.0); Mean Platelet Volume 9.5 fl (9.2-11.8); Monocytes Absolute Auto 0.42 K/mm3 (0.10-0.90); Neutrophils Absolute Auto 4.9 K/mm3 (1.7-7.2); Neutrophils Percent Auto 70.2 % (50.0-70.0); Platelet Count Result 250 K/mm3 (150-420); Red Blood Count 4.04 M/mm3 (4.20-5.40); Red Cell Distribution Width 12.5 % (11.6-14.4)
[2020-06-30 14:13] LABS: Add Urine Microscopic? YES; Appearance Urine Clear (Clear); Bilirubin Urine Negative (Negative); Blood Urine Negative (Negative); Color Urine Yellow (Yellow); Glucose Urine UA Negative (Negative); Ketones Urine Negative (Negative); Leukocyte Esterase Ur Trace (Negative); Nitrate Urine Negative (Negative); Protein Urine Negative (Negative); Urobilinogen Urine 0.2 mg/dL (0.2-1.0); pH Urine 5.5 (5.0-8.0)
[2020-06-30 14:25] LABS: RBC Urine 0-2 /hpf (0-2); Squamous Epithelial Cell Urine Rare /hpf (Few)
[2020-06-30 14:26] LABS: Bacteria Urine Trace /hpf
[2020-06-30 14:33] LABS: Alanine Aminotransferase 29 U/L (14-59); Albumin Level 3.8 g/dL (3.4-5.0); Alkaline Phosphatase 89 U/L (46-116); Anion Gap 9 mmol/L (8-16); Aspartate Amino Transferase 17 U/L (15-37); Bilirubin,Total 0.6 mg/dL (0.00-1.00); Blood Urea Nitrogen 21 mg/dL (7-18); CRP 1.7 mg/dL (0.0-0.9); Calcium 8.9 mg/dL (8.5-10.1); Carbon Dioxide 28 mmol/L (21-32); Chloride 102 mmol/L (98-108); Estimated Glomerular Filt Rate 48; Glucose 88 mg/dL (70-99); Osmolality Calculated 290 mOsm/kg (285-295); Potassium 3.6 mmol/L (3.5-5.1); Sodium 139 mmol/L (136-145); Total Protein 7.5 g/dL (6.4-8.2)
[2020-06-30 15:14] LABS: Erythrocyte Sedimentation Rate 24 mm/hr (0-20)
== END 2020-06-30 13:59 | disposition home or self-care (01) ==
LOC: CHSLAB 14:00
PROVIDERS: PCP Internal Medicine; Visit Provider Internal Medicine
DX: R10.9 Unspecified abdominal pain (principal); M54.5 Low back pain
CPT/HCPCS: 36415; 74177; 80053; 81001; 85025; 85652; 86140; 87086; Q9965

== ENCOUNTER 2020-10-16 11:18 | Outpatient (CLI) | payer MEDICARE, SELFPAY | END 2020-10-16 11:19 | disposition home or self-care (01) | PROVIDERS: PCP Internal Medicine | DX: R19.4 Change in bowel habit (principal); Z87.19 Personal history of other diseases of the digestive system; R93.5 Abnormal findings on diagnostic imaging of other abdominal regions, including retroperitoneum | CPT/HCPCS: 83497 ==

== ENCOUNTER 2020-10-22 09:44 | Outpatient (CLI) | payer MEDICARE, SELFPAY ==
--- NOTE | ~2020-10-22 | US_ITS ---
EXAMINATION: US arterial ankle brachial ind DATE: 10/22/2020 10:35 INDICATION: Cold feet TECHNIQUE: Segmental pressures and plethysmographic and Doppler waveforms of the brachial and lower e xtremity arteries were obtained. COMPARISON: None. FINDINGS: Right and left brachial artery pressures of 96 mm Hg and 107 mm Hg, respectively, are concordant (nor mal difference <= 30 mmHg). The right ankle-brachial index (GLORY) is 1.24 (normal >= 0.9-1.0). Arterial Doppler waveforms are biph asic. The left GLORY is 1.22.. Arterial Doppler waveforms are biphasic. IMPRESSION: Bilateral normal GLORY Reviewed, dictated and finalized at Location A. Reviewed, dictated and finalized at location A. ORATE TRAVEL EXPERT IMPRESSION: Bilateral normal GLORY
== END 2020-10-22 09:45 | disposition home or self-care (01) ==
LOC: CHSIMG 09:46
PROVIDERS: PCP Internal Medicine; Visit Provider Specialist
DX: R20.9 Unspecified disturbances of skin sensation (principal); R09.89 Other specified symptoms and signs involving the circulatory and respiratory systems; I73.9 Peripheral vascular disease, unspecified
CPT/HCPCS: 93922

== ENCOUNTER 2020-11-20 13:28 | Outpatient (CLI) | payer MEDICARE, SELFPAY ==
--- NOTE | ~2020-11-20 | CT_ITS ---
EXAMINATION: CT facial bones wo con EXAM DATE: 11/20/2020 14:42 INDICATION: Left mandibular pain L mandible and TMJ pain for years, worse for months. TECHNIQUE: Spiral CT of the facial bones was acquired in the axial plane without contrast. Coronal reformatted images were also reviewed. The dose-length product (DLP) for this examination was 261.52 mGy-cm. The exposure was tailored according to patient size, and iterative reconstruction (ASIR) wa s used as additional dose reduction technique. There is no prior study for comparison. FINDINGS: There is moderate bilateral temporomandibular joint primary osteoarthritis. No dislocation or subluxation. There are no displaced acute nasal bone fractures. The mandible, sinuses and orbits a re intact. The orbits, globes and extraocular muscles are unremarkable. Bilateral cataract surgery. The visualized sinuses and mastoid air cells are well aerated. IMPRESSION: Moderate bilateral TMJ osteoarthritis. Reviewed, dictated and finalized at location A. PAGE DESIGNER
== END 2020-11-20 13:29 | disposition home or self-care (01) ==
LOC: CHSIMG 13:31
PROVIDERS: PCP Internal Medicine; Visit Provider Internal Medicine
DX: M26.622 Arthralgia of left temporomandibular joint (principal)
CPT/HCPCS: 70486

== ENCOUNTER 2021-04-20 15:17 | Outpatient (CLI) | payer MEDICARE, SELFPAY ==
--- NOTE | ~2021-04-20 | XR_ITS ---
XR foot LT min 3V DATE: 04/20/2021 16:14 INDICATION: Left foot pain at fourth digit and metatarsal area 3 days after stubbing foot TECHNIQUE: 4 views COMPARISON: None FINDINGS: Minimal plantar calcaneal enthesopathy. There is moderate osteoarthritic change at the first metatarsophalangeal joint as well as osteoarthri tis at multiple interphalangeal joints. There is degenerative change at the tarsometatarsal joints. Minimal hallux valgus and bunion deformity. No recent fracture or dislocation is evident. No periosteal reaction or bone destruction. IMPRESSION: Polyarticular osteoarthritis Minimal plantar calcaneal enthesopathy Reviewed, dictated and finalized at location B.
--- NOTE | ~2021-04-20 | XR_ITS ---
XR knee LT min 4V DATE: 04/20/2021 16:15 INDICATION: Bilateral chronic knee pain, popping TECHNIQUE: [place] and standing AP, PA and lateral views of left knee COMPARISON: None FINDINGS: Diffuse osteopenia. No fracture or dislocation, periosteal reaction or bone destruction, ra diopaque intra-articular loose body or chondrocalcinosis is detected. There is minimal osteoarthritis . Small suprapatellar knee joint effusion is suggested. IMPRESSION: Diffuse osteopenia. Minimal suprapatellar knee joint effusion is suggested Minimal osteoarthritis Reviewed, dictated and finalized at location B.
--- NOTE | ~2021-04-20 | XR_ITS ---
XR knee RT min 4V DATE: 04/20/2021 16:16 INDICATION: Bilateral chronic knee pain, popping TECHNIQUE: Standing AP, PA and lateral views. [place] view. COMPARISON: None FINDINGS: There is moderately severe tricompartment osteoarthritis, with periarticular spurring at al l 3 compartments, moderately prominent loss of medial compartment joint space height. Mild suprapatellar knee joint effusion is suggested. Osteopenia. No fracture or dislocation, periosteal reaction or bone destruction, radiopaque intra-articular loose body or chondrocalcinosis is evident. IMPRESSION: Moderately severe tricompartment osteoarthritis Mild suprapatellar knee joint effusion Osteopenia Reviewed, dictated and finalized at location B.
== END 2021-04-20 15:18 | disposition home or self-care (01) ==
LOC: CHSIMG 15:20
PROVIDERS: PCP Internal Medicine; Visit Provider Internal Medicine
DX: M79.672 Pain in left foot (principal); M25.562 Pain in left knee; M25.561 Pain in right knee
CPT/HCPCS: 73564; 73630

== ENCOUNTER 2021-04-28 09:55 | Outpatient (RCR) | payer MEDICARE, SELFPAY ==
--- NOTE | 2021-04-30 08:56 | PTOPEVAL ---
Thank you for referring Nguyen Herron to [facility].? The patient is scheduled to be seen for therapy? ____x/week for ___ weeks. Please review, sign, date and return this plan of care RADHA. I agree with and certify that the following plan of care is medically necessary. Referring Physician Date Admitting Provider: Attending Provider: Praveena Mcfarland MD Referring Provider: *PT Outpatient Evaluation Start: 04/28/21 10:06 Freq: Status: Active Protocol: Document 04/28/21 10:08 [facility] (Rec: 04/28/21 12:16 [facility] [id number]) Therapy Assessment Status Assessment Status Assessment Status Evaluation Outpatient Past Medical History Cardiovascular History Hx Hypercholesterolemia Yes Hx Hypertension Yes Respiratory History Hx Respiratory Disorders No Significant History Gastrointestinal History Hx Bowel Surgery Yes Hx Gastrointestinal Bleed Yes Hx Other Gastrointestinal Disorders Yes: Implanted stem for constipation Genitourinary History Hx Genitourinary Disorders No Significant History Musculoskeletal History Hx Musculoskeletal Disorders No Significant History Hematological History Hx Hematological Disorders No Significant History Endocrine History Hx Endocrine Disorders No Significant History HEENT History Hx Cataracts Yes: 2018 Hx Sinus Problems Yes: OTC meds for this Integumentary History Hx Skin Disorders No Significant History Reproductive History Hx Hysterectomy Yes: 1981 Psychosocial History Hx Psychiatric Disorders No Significant History Pain History History of Any Previous or Ongoing No Significant History Instance of Pain Anesthesia History Hx Anesthesia Reactions No Significant History Evaluation Information Problem Diagnosis lumbar DDD, bilateral knee pain Onset 04/21/21 Additional Evaluation Detail LEFS = 58% functionally declined Subjective Information patient reports she has Query Text:As Reported By Patient/ noticed some increased lower Family back pain and radiation down the posterior L leg with sitting. she reports it is a constant discomfort, but increases in the evenings and with laying down. she reports she also has pain in both knees (increased on the R compared to the L). she reports she has had pain in the R knee for longer time and
--- NOTE | 2021-05-12 11:23 | PTOPEVAL ---
Thank you for referring Nguyen Herron to [facility].? The patient is scheduled to be seen for therapy? ____x/week for ___ weeks. Please review, sign, date and return this plan of care RADHA. I agree with and certify that the following plan of care is medically necessary. Referring Physician Date Admitting Provider: Attending Provider: Praveena Mcfarland MD Referring Provider: *PT Outpatient Evaluation Start: 04/28/21 10:06 Freq: Status: Active Protocol: Document 05/12/21 10:00 [facility] (Rec: 05/12/21 11:22 [facility] [id number]) Therapy Assessment Status Assessment Status Assessment Status Progress Outpatient Past Medical History Cardiovascular History Hx Hypercholesterolemia Yes Hx Hypertension Yes Respiratory History Hx Respiratory Disorders No Significant History Gastrointestinal History Hx Bowel Surgery Yes Hx Gastrointestinal Bleed Yes Hx Other Gastrointestinal Disorders Yes: Implanted stem for constipation Genitourinary History Hx Genitourinary Disorders No Significant History Musculoskeletal History Hx Musculoskeletal Disorders No Significant History Hematological History Hx Hematological Disorders No Significant History Endocrine History Hx Endocrine Disorders No Significant History HEENT History Hx Cataracts Yes: 2018 Hx Sinus Problems Yes: OTC meds for this Integumentary History Hx Skin Disorders No Significant History Reproductive History Hx Hysterectomy Yes: 1981 Psychosocial History Hx Psychiatric Disorders No Significant History Pain History History of Any Previous or Ongoing No Significant History Instance of Pain Anesthesia History Hx Anesthesia Reactions No Significant History Evaluation Information Problem Diagnosis lumbar DDD, bilateral knee pain Onset 04/21/21 Subjective Information patient reports she has just Query Text:As Reported By Patient/ had an injection to the R knee Family yesterday. she reports decreased pain in the R knee since this injection. she reports this morning no pain in the L buttock. she reports she is considering finding an ortho for surgeon preparation of the R knee. Pain Assessment Timing of Pain Assessment Timing of Pain Assessment Assessment Pain Scale Pain Scale Used Numeric (1 - 10) Self Report Pain Assessment Lower Back Reported Pain Level 0 Bilateral Knee(s) Reported Pain Level 2
--- NOTE | 2021-05-29 11:07 | PTOPEVAL ---
Thank you for referring Nguyen Herron to [facility].? The patient is scheduled to be seen for therapy? ____x/week for ___ weeks. Please review, sign, date and return this plan of care RADHA. I agree with and certify that the following plan of care is medically necessary. Referring Physician Date Admitting Provider: Attending Provider: Praveena Mcfarland MD Referring Provider: *PT Outpatient Evaluation Start: 04/28/21 10:06 Freq: Status: Active Protocol: Document 05/29/21 10:02 [facility] (Rec: 05/29/21 11:06 [facility] [id number]) Therapy Assessment Status Assessment Status Assessment Status Discharge Outpatient Past Medical History Cardiovascular History Hx Hypercholesterolemia Yes Hx Hypertension Yes Respiratory History Hx Respiratory Disorders No Significant History Gastrointestinal History Hx Bowel Surgery Yes Hx Gastrointestinal Bleed Yes Hx Other Gastrointestinal Disorders Yes: Implanted stem for constipation Genitourinary History Hx Genitourinary Disorders No Significant History Musculoskeletal History Hx Musculoskeletal Disorders No Significant History Hematological History Hx Hematological Disorders No Significant History Endocrine History Hx Endocrine Disorders No Significant History HEENT History Hx Cataracts Yes: 2017 Hx Sinus Problems Yes: OTC meds for this Integumentary History Hx Skin Disorders No Significant History Reproductive History Hx Hysterectomy Yes: 1981 Psychosocial History Hx Psychiatric Disorders No Significant History Pain History History of Any Previous or Ongoing No Significant History Instance of Pain Anesthesia History Hx Anesthesia Reactions No Significant History Evaluation Information Problem Diagnosis lumbar DDD, bilateral knee pain Onset 04/21/21 Additional Evaluation Detail LEFS = 50% functional deficits Subjective Information patient reports she feels Query Text:As Reported By Patient/ really good this date. she Family reports her pain has been low, and she has been managing her pain at home with exercises. she reports she is ready to DC therapy and try her exercises independently at home. Pain Assessment Timing of Pain Assessment Timing of Pain Assessment Assessment Pain Scale Pain Scale Used Numeric (1 - 10) Self Report Pain Assessment Lower Back Reported Pain Level 0 Bilateral Knee(s) Reported Pain Level 2 Pain Score Pain Score
== END 2021-05-29 11:10 | disposition home or self-care (01) ==
LOC: CHSPT 09:55
PROVIDERS: PCP Internal Medicine; Visit Provider Internal Medicine
DX: M54.16 Radiculopathy, lumbar region (principal); M25.561 Pain in right knee; M25.562 Pain in left knee
CPT/HCPCS: 97110; 97140; 97161; 97530; 97542

== ENCOUNTER 2021-06-08 08:36 | Outpatient (CLI) | payer MEDICARE, SELFPAY ==
[2021-06-08 08:46] LABS: Basophils Absolute Auto 0.02 K/mm3 (0.00-0.10); Basophils Percent Auto 0.4 % (0.0-1.0); Eosinophils Absolute Auto 0.12 K/mm3 (0.02-0.50); Eosinophils Percent Auto 2.5 % (1.0-6.0); Hematocrit 37.6 % (35.0-42.0); Hemoglobin 12.4 g/dL (11.7-13.8); Immature Granulocyte Absolute 0.01 K/mm3 (0.00-0.00); Immature Granulocyte Percent A 0.2 % (0.0-0.0); Lymphocytes Absolute Auto 1.33 K/mm3 (1.10-4.50); Lymphocytes Percent Auto 27.4 % (18.0-42.0); Mean Corpuscular Hemoglobin 30.4 pg (27.0-31.0); Mean Corpuscular Volume 92.2 fL (78.0-102.0); Mean Platelet Volume 9.5 fl (9.2-11.8); Monocytes Absolute Auto 0.35 K/mm3 (0.10-0.90); Monocytes Percent Auto 7.2 % (2.0-11.0); Neutrophils Percent Auto 62.3 % (50.0-70.0); Platelet Count Result 240 K/mm3 (150-420); Red Blood Count 4.08 M/mm3 (4.20-5.40); White Blood Count 4.9 K/mm3 (4.8-10.8)
[2021-06-08 08:49] LABS: Add Urine Microscopic? YES; Appearance Urine Clear (Clear); Bilirubin Urine Negative (Negative); Blood Urine Negative (Negative); Color Urine Light Yellow (Yellow); Glucose Urine UA Negative (Negative); Ketones Urine Negative (Negative); Leukocyte Esterase Ur 1+ (Negative); Nitrate Urine Negative (Negative); Protein Urine Negative (Negative); Specific Grav Ur <= 1.005 (1.010-1.020); Urobilinogen Urine 0.2 mg/dL (0.2-1.0); pH Urine 5.5 (5.0-8.0)
[2021-06-08 09:20] LABS: Bacteria Urine 1+ /hpf; Squamous Epithelial Cell Urine Rare /hpf (Few)
[2021-06-08 09:56] LABS: Alanine Aminotransferase 42 U/L (14-59); Alkaline Phosphatase 91 U/L (46-116); Aspartate Amino Transferase 22 U/L (15-37); Bilirubin,Total 0.4 mg/dL (0.00-1.00); Blood Urea Nitrogen 18 mg/dL (7-18); Calcium 9.3 mg/dL (8.5-10.1); Carbon Dioxide 30 mmol/L (21-32); Cholesterol 160 mg/dL (0-200); Creatine Kinase 88 U/L (26-192); Estimated Glomerular Filt Rate 57; Glucose 84 mg/dL (70-99); HDL Direct 54 mg/dL (40-60); LDL Cholesterol Calculated 92 mg/dL (<130); Total Protein 6.9 g/dL (6.4-8.2); Triglycerides 72 mg/dL (0-150)
[2021-06-08 13:56] LABS: Anion Gap 7 mmol/L (8-16); Chloride 106 mmol/L (98-107); Osmolality Calculated 296 mOsm/kg (285-295); Potassium 4.5 mmol/L (3.4-5.0); Sodium 143 mmol/L (137-145)
[2021-06-11 13:56] LABS: Vitamin D 25 Hydroxy 36 ng/mL (30-100)
== END 2021-06-08 08:37 | disposition home or self-care (01) ==
LOC: CHSLAB 08:38
PROVIDERS: PCP Internal Medicine; Visit Provider Internal Medicine
DX: E78.2 Mixed hyperlipidemia (principal); I10 Essential (primary) hypertension; M81.0 Age-related osteoporosis without current pathological fracture; R19.7 Diarrhea, unspecified
CPT/HCPCS: 36415; 80053; 80061; 81001; 82306; 82550; 85025

== ENCOUNTER 2021-06-15 09:59 | Outpatient (CLI) | payer MEDICARE, SELFPAY ==
[2021-06-15 10:13] LABS: Add Urine Microscopic? YES; Appearance Urine Clear (Clear); Bilirubin Urine Negative (Negative); Blood Urine Negative (Negative); Color Urine Light Yellow (Yellow); Glucose Urine UA Negative (Negative); Ketones Urine Negative (Negative); Leukocyte Esterase Ur Trace (Negative); Nitrate Urine Negative (Negative); Protein Urine Negative (Negative); Specific Grav Ur <= 1.005 (1.010-1.020); Urobilinogen Urine 0.2 mg/dL (0.2-1.0)
[2021-06-15 10:21] LABS: Bacteria Urine None seen /hpf; RBC Urine 0-2 /hpf (0-2); Squamous Epithelial Cell Urine None seen /hpf (Few); WBC Urine 0-3 /hpf (0-3)
== END 2021-06-15 10:00 | disposition home or self-care (01) ==
LOC: CHSLAB 10:02
PROVIDERS: PCP Internal Medicine; Visit Provider Internal Medicine
DX: N39.0 Urinary tract infection, site not specified (principal)
CPT/HCPCS: 81001; 87086; 87088

== ENCOUNTER 2021-09-04 11:21 | Outpatient (CLI) | payer MEDICARE, SELFPAY ==
--- NOTE | ~2021-09-04 | XR_ITS ---
EXAMINATION: XR shoulder LT min 2V DATE: 09/04/2021 11:53 INDICATION: Left shoulder pain. TECHNIQUE: 5 views of left shoulder were obtained. COMPARISON: None. FINDINGS: Bone alignment is normal. No fracture. There is mild osteoarthritis of glenohumeral joint a nd severe osteoarthritis of the acromioclavicular joint. There is mild scarring at left lung apex. IMPRESSION: 1. Polyarticular osteoarthritis. 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
--- NOTE | ~2021-09-04 | CT_ITS ---
EXAMINATION: CT shoulder LT wo con DATE: 09/04/2021 11:54 INDICATION: Left shoulder pain. TECHNIQUE: Computed tomography (CT) of the left shoulder was performed without intravenous contrast. Automated exposure control and iterative reconstruction technique were employed. The dose-length prod uct was 194.32 mGy-cm. COMPARISON: None FINDINGS: Bone alignment is normal. There is a healing nondisplaced fracture of the scapular spine wi th low signal fracture line and surrounding thickened and sclerotic bone. There is mild osteoarthriti s of glenohumeral joint and severe osteoarthritis of acromioclavicular joint. There is no asymmetric fatty atrophy of the rotator cuff muscle bellies. There is moderate thoracic spondylosis. There is mi ld scarring at left lung apex. IMPRESSION: 1. Healing nondisplaced fracture of the scapular spine. 2. Polyarticular osteoarthritis. Reviewed, dictated and finalized at location A. 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
== END 2021-09-04 11:22 | disposition home or self-care (01) ==
LOC: CHSIMG 11:24
PROVIDERS: PCP Internal Medicine; Visit Provider Internal Medicine
DX: M25.512 Pain in left shoulder (principal)
CPT/HCPCS: 73030; 73200

== ENCOUNTER 2022-03-02 07:53 | Outpatient (CLI) | payer MEDICARE, SELFPAY ==
--- NOTE | ~2022-03-02 | US_ITS ---
US right upper quadrant DATE: 03/02/2022 08:29 INDICATION: Nausea TECHNIQUE: Real-time imaging of liver, pancreas, gallbladder COMPARISON: 06/30/2020 CT abdomen pelvis FINDINGS: No hepatic or pancreatic space-occupying mass lesion is evident. Normal hepatopedal portal venous flow direction. No gallstones or gallbladder wall thickening. Negative sonographic Rutledge's sign. The common bile duct measures up to approximately 10 mm; recommend correlation with serum bilirubin l evel. Prominent right extrarenal pelvis, also noted on 06/30/2020 CT abdomen examination. The left renal pe lvis was able more prominent on that examination. IMPRESSION: Common bile duct measures 10 mm; recommend correlation with serum bilirubin Reviewed, dictated and finalized at Location A. Reviewed, dictated and finalized at location A. IMPRESSION: Common bile duct measures 10 mm; recommend correlation with serum b ilirubin
== END 2022-03-02 07:54 | disposition home or self-care (01) ==
LOC: CHSIMG 07:53
PROVIDERS: PCP Internal Medicine; Visit Provider Internal Medicine
DX: R11.0 Nausea (principal)
CPT/HCPCS: 76705

== ENCOUNTER 2022-03-08 09:52 | Outpatient (CLI) | payer MEDICARE, SELFPAY ==
--- NOTE | ~2022-03-08 | NM_ITS ---
EXAMINATION: NM hepatobiliary w pharm DATE: 03/08/2022 14:26 INDICATION: Nausea COMPARISON: None. TECHNIQUE: 6.3 mCi Tc-99m mebrofenin (Choletec) was administered intravenously. Scintigraphic images of the abdomen were obtained for one hour. 1.2 mcg sincalide (Kinevac) was administered by slow intr avenous infusion, and imaging was continued for 30 minutes. Gallbladder ejection fraction was calcula edmar by the technologist. FINDINGS: There is normal clearance of radiotracer from the blood pool. There is homogeneous tracer uptake by t he liver. Activity progresses to the gallbladder and bowel. The gallbladder ejection fraction (GBEF) is 71% (normal 10-90%, but most patient with gallbladder dysfunction have GBEF < 35% which does over lap with the normal range). IMPRESSION: 1. Normal hepatobiliary scan. Reviewed, dictated and finalized at location B.
== END 2022-03-08 09:53 | disposition home or self-care (01) ==
LOC: CHSIMG 09:53
PROVIDERS: PCP Internal Medicine; Visit Provider Internal Medicine
DX: R11.0 Nausea (principal)
CPT/HCPCS: 78227; A9537; J2805

== ENCOUNTER 2022-03-26 10:05 | Outpatient (CLI) | payer MEDICARE, SELFPAY ==
[2022-03-26 10:41] LABS: Basophils Absolute Auto 0.01 K/mm3 (0.00-0.10); Basophils Percent Auto 0.2 % (0.0-1.0); Eosinophils Percent Auto 2.2 % (1.0-6.0); Hematocrit 36.1 % (35.0-42.0); Hemoglobin 11.8 g/dL (11.7-13.8); Immature Granulocyte Absolute 0.01 K/mm3 (0.00-0.00); Immature Granulocyte Percent A 0.2 % (0.0-0.0); Lymphocytes Absolute Auto 1.01 K/mm3 (1.10-4.50); Lymphocytes Percent Auto 21.8 % (18.0-42.0); Mean Corpuscular HGB Conc 32.7 g/dL (32.0-36.0); Mean Corpuscular Hemoglobin 29.8 pg (27.0-31.0); Mean Corpuscular Volume 91.2 fL (78.0-102.0); Mean Platelet Volume 9.9 fl (9.2-11.8); Monocytes Absolute Auto 0.34 K/mm3 (0.10-0.90); Monocytes Percent Auto 7.3 % (2.0-11.0); Neutrophils Absolute Auto 3.2 K/mm3 (1.7-7.2); Neutrophils Percent Auto 68.3 % (50.0-70.0); Platelet Count Result 215 K/mm3 (150-420); Red Blood Count 3.96 M/mm3 (4.20-5.40); Red Cell Distribution Width 12.7 % (11.6-14.4); White Blood Count 4.6 K/mm3 (4.8-10.8)
[2022-03-26 10:43] LABS: Add Urine Microscopic? YES; Appearance Urine Clear (Clear); Bilirubin Urine Negative (Negative); Blood Urine Negative (Negative); Color Urine Light Yellow (Yellow); Glucose Urine UA Negative (Negative); Ketones Urine Negative (Negative); Leukocyte Esterase Ur 1+ (Negative); Nitrate Urine Negative (Negative); Protein Urine Negative (Negative); Urobilinogen Urine 0.2 mg/dL (0.2-1.0)
[2022-03-26 10:48] LABS: Bacteria Urine Trace /hpf; RBC Urine None seen /hpf (0-2); Squamous Epithelial Cell Urine Few /hpf (Few)
[2022-03-26 11:11] LABS: Alanine Aminotransferase 24 U/L (14-59); Albumin Level 3.9 g/dL (3.4-5.0); Alkaline Phosphatase 101 U/L (46-116); Anion Gap 8 mmol/L (8-16); Aspartate Amino Transferase 18 U/L (15-37); Bilirubin,Total 0.5 mg/dL (0.00-1.00); Blood Urea Nitrogen 15 mg/dL (7-18); Calcium 9.4 mg/dL (8.5-10.1); Carbon Dioxide 28 mmol/L (21-32); Chloride 106 mmol/L (98-108); Cholesterol 180 mg/dL (0-200); Estimated Glomerular Filt Rate 59; Free T3 2.51 pg/mL (2.18-3.98); Free T4 Free Thyroxine 0.96 ng/dL (0.76-1.46); Glucose 87 mg/dL (70-99); HDL Direct 45 mg/dL (40-60); LDL Cholesterol Calculated 107 mg/dL (<130); Osmolality Calculated 293 mOsm/kg (285-295); Sodium 142 mmol/L (136-145); Thyroid Stimulating Hormone 1.85 uIU/mL (0.36-3.74); Total Protein 7.5 g/dL (6.4-8.2); Triglycerides 141 mg/dL (0-150)
[2022-03-30 20:22] LABS: Vitamin D 25 Hydroxy 33 ng/mL (30-100)
== END 2022-03-26 10:06 | disposition home or self-care (01) ==
LOC: CHSLAB 10:10
PROVIDERS: PCP Internal Medicine; Visit Provider Internal Medicine
DX: E78.2 Mixed hyperlipidemia (principal); I10 Essential (primary) hypertension; R19.7 Diarrhea, unspecified; M81.0 Age-related osteoporosis without current pathological fracture
CPT/HCPCS: 36415; 80053; 80061; 81001; 82306; 84439; 84443; 84481; 85025

== ENCOUNTER 2022-05-10 09:48 | Outpatient (CLI) | payer MEDICARE, SELFPAY ==
--- NOTE | ~2022-05-10 | XR_ITS ---
EXAMINATION: XR wrist RT min 3V DATE: 05/10/2022 10:14 INDICATION: Right wrist pain. TECHNIQUE: 4 views of right wrist were obtained. COMPARISON: None. FINDINGS: Bone alignment is normal. No fracture. There is moderate osteoarthritis of distal radioulna r joint, mild osteoarthritis of triscaphe joint, and moderate osteoarthritis of first carpometacarpal joint. There is severe osteoarthritis of first metacarpophalangeal joint and moderate osteoarthritis of first interphalangeal joint and third metacarpophalangeal joint. IMPRESSION: 1. Polyarticular osteoarthritis. Reviewed, dictated and finalized at location A.
== END 2022-05-10 09:49 | disposition home or self-care (01) ==
LOC: CHSIMG 09:51
PROVIDERS: PCP Internal Medicine; Visit Provider Internal Medicine
DX: M25.531 Pain in right wrist (principal); M19.031 Primary osteoarthritis, right wrist
CPT/HCPCS: 73110

== ENCOUNTER 2022-07-16 13:26 | Emergency (ER) | payer MEDICARE, SELFPAY ==
--- NOTE | 2022-07-16 13:27 | ED.FEMALEGU ---
HPI - Female Genitourinary General Chief complaint: Urogenital-Female Stated complaint: Possible UTI Time Seen by Provider: 07/16/22 13:27 Source: patient and RN notes reviewed Mode of arrival: ambulatory Limitations: no limitations History of Present Illness MD elicited complaint: UTI Pertinent past history: recurrent UTIs Onset (ago): day(s) (2) Location of symptoms: urethra Severity: moderate Female Urogenital Radiation: L Flank and R Flank Quality of pain: sharp and stabbing Consistency: intermittent Vaginal discharge: none Vaginal bleeding: none Urinary symptoms: Dysuria, Urgency, Frequency and Foul Smelling Urine Exacerbating factors: urination Relieving factors: none Associated symptoms: fever (101 last p.m.) and vomiting ( today) Treatment prior to arrival: none Sexual activity: No Related Data Home Medications Medication Instructions Recorded Confirmed hydrochlorothiazide 12.5 mg tablet 12.5 mg PO DAILY 07/28/19 07/16/22 lisinopril 20 mg tablet 20 mg PO DAILY 07/28/19 07/16/22 omeprazole 40 mg capsule,delayed 40 mg PO DAILY 07/28/19 07/16/22 release propranolol 20 mg tablet 20 mg PO Q12H 07/28/19 07/16/22 simvastatin 20 mg tablet 20 mg PO DAILY 07/28/19 07/16/22 Allergies Allergy/AdvReac Type Severity Reaction Status Date / Time No Known Allergies Allergy Verified 07/16/22 14:27 Review of Systems Review of Systems: All systems reviewed & are unremarkable except as noted in HPI and below PMFSH Past Medical History Medical History Arthritis Elevated lipids Hypertension Tricuspid regurgitation Surgical History Surgical History H/O cataract extraction S/P placement of nerve stimulator Bladder Family History Family History Father Bladder cancer Mother , at 97 yo Abdominal malignancy Abdominal mass Son No problems noted. Social History Social History Smoking status: Never smoker Second hand tobacco smoke exposure: Yes (none for 7 years) Alcohol intake: never Substance use: never Gender identity (if verbalized by the patient): Female Spiritual care concerns: No Agree to blood products: Yes Exam Const: General: healthy appearing, no acute distress and alert Nutritional Appearance: well nourished Orientation/consciousness: patient oriented x3 Limitations: no limitations HENMT: Head: normal to inspection Ears: external ears normal Eyes: Conjunctivae: conjunctivae normal Pupils: Equal, round and reactive pupils present EOM: EOMs intact bilaterally Neck: Neck: normal visual inspection Resp: Effort & Inspection: normal respiratory effort Auscultation: clear to auscultation bilaterally Cardio: Rate: regular rate Rhythm: regular rhythm GI: GI Palp: Yes Soft to palpation, Yes Tenderness to palpation present (GI) ( left upper quadrant mild), Yes Guarding due to palpation present (GI) and No Rebound tenderness present Auscultation: normal bowel sounds Back/Spine/Pelvis: Back: CVA tenderness ( bilateral) Cervical Spine: cervical ROM normal Thoracic/Lumbar Spine: thoraco-lumbar ROM normal Skin: General skin exam: normal color Rashes: no rashes Neuro: General: patient oriented x3, moves all extremities, no focal motor deficits and CN's II-XI intact bilaterally Speech: normal speech and Abnormal speech present Gait exam (Neuro): Normal gait present Extrem: General: normal to inspection and no clubbing, cyanosis or edema Psych: Appearance: grossly normal and well kempt Mental Status: mental status grossly normal Affect: normal affect Attitude: cooperative Course Vital Signs Vital signs: Vital Signs Temperature 36.9 C 07/16/22 13:38 Pulse Rate 92 07/16/22 13:38 Respiratory Rate 16 07/16/22 13:38 Blood Pressure 13
[2022-07-16 13:38] VITALS: BP 137/85; PULSE 92; RESP 16; TEMP 36.9; O2SAT 100
[2022-07-16 13:51] LABS: Appearance Urine Clear (Clear); Bilirubin Urine Negative (Negative); Blood Urine 2+ (Negative); Glucose Urine UA Negative (Negative); Ketones Urine Trace (Negative); Leukocyte Esterase Ur 3+ LEU/UL (Negative); Nitrate Urine Positive (Negative); Protein Urine 2+ (Negative); Specific Grav Ur 1.025 (1.010-1.020); Urobilinogen Urine 0.2 mg/dL (0.2-1.0)
[2022-07-16 14:02] LABS: Add Urine Microscopic? YES; Color Urine Light Yellow (Yellow)
[2022-07-16 14:03] LABS: Bacteria Urine 1+ /hpf; Squamous Epithelial Cell Urine Rare /hpf (Few); WBC Urine >75 /hpf (0-3)
[2022-07-16 14:13] LABS: Basophils Absolute Auto 0.02 K/mm3 (0.00-0.10); Basophils Percent Auto 0.3 % (0.0-1.0); Eosinophils Absolute Auto 0.04 K/mm3 (0.02-0.50); Eosinophils Percent Auto 0.6 % (1.0-6.0); Hemoglobin 11.3 g/dL (11.7-13.8); Immature Granulocyte Absolute 0.02 K/mm3 (0.00-0.00); Immature Granulocyte Percent A 0.3 % (0.0-0.0); Lymphocytes Absolute Auto 1.09 K/mm3 (1.10-4.50); Lymphocytes Percent Auto 15.4 % (18.0-42.0); Mean Corpuscular HGB Conc 33.2 g/dL (32.0-36.0); Mean Corpuscular Hemoglobin 29.9 pg (27.0-31.0); Mean Corpuscular Volume 89.9 fL (78.0-102.0); Mean Platelet Volume 9.3 fl (9.2-11.8); Monocytes Absolute Auto 0.57 K/mm3 (0.10-0.90); Monocytes Percent Auto 8.1 % (2.0-11.0); Neutrophils Absolute Auto 5.3 K/mm3 (1.7-7.2); Neutrophils Percent Auto 75.3 % (50.0-70.0); Platelet Count Result 236 K/mm3 (150-420); Red Blood Count 3.78 M/mm3 (4.20-5.40); Red Cell Distribution Width 12.4 % (11.6-14.4); White Blood Count 7.1 K/mm3 (4.8-10.8)
[2022-07-16 14:29] LABS: Alanine Aminotransferase 25 U/L (14-59); Albumin Level 3.5 g/dL (3.4-5.0); Alkaline Phosphatase 103 U/L (46-116); Anion Gap 7 mmol/L (8-16); Aspartate Amino Transferase 17 U/L (15-37); Bilirubin,Total 0.7 mg/dL (0.00-1.00); Blood Urea Nitrogen 19 mg/dL (7-18); CRP 6.3 mg/dL (0.0-0.9); Calcium 9.1 mg/dL (8.5-10.1); Carbon Dioxide 27 mmol/L (21-32); Chloride 104 mmol/L (98-108); Estimated CRCL calculation 33 ml/min; Estimated Glomerular Filt Rate 49; Glucose 95 mg/dL (70-99); Osmolality Calculated 288 mOsm/kg (285-295); Potassium 4.2 mmol/L (3.5-5.1); Sodium 138 mmol/L (136-145); Total Protein 7.4 g/dL (6.4-8.2)
[2022-07-16 14:58] VITALS: BP 147/71; PULSE 82; RESP 20; TEMP 37.2; O2SAT 98
== END 2022-07-16 15:00 | disposition home or self-care (01) ==
PROVIDERS: Emergency Provider Emergency Medicine; PCP Internal Medicine
DX: N30.01 Acute cystitis with hematuria (principal)
CPT/HCPCS: 36415; 80053; 81001; 85025; 86140; 87077; 87086; 87088; 87186; 99283

== ENCOUNTER 2022-09-10 13:32 | Outpatient (CLI) | payer MEDICARE, SELFPAY ==
--- NOTE | ~2022-09-10 | XR_ITS ---
AP view of the pelvis Clinical history: Pain, fecal incontinence Findings: No acute fracture or dislocation is seen. Osseous alignment is anatomic. Bilateral hip and SI joint spaces are preserved. Osteitis pubis noted. Apparent neurostimulator device present. Impression: Osteitis pubis. Neurostimulator device. Reviewed, dictated and finalized at location . MAKER Impression: Osteitis pubis. Neurostimulator device.
--- NOTE | ~2022-09-10 | MM_ITS ---
EXAMINATION: MM screening sher [facility] w [facility] HISTORY: Screening TECHNIQUE: Craniocaudal and mediolateral oblique 3-D tomosynthesis images were obtained and synthetic 2-D images were generated. CAD analysis was submitted and interpreted. COMPARISON: No prior mammogram is available for comparison at this institution. BREAST PARENCHYMAL COMPOSITION: There are scattered areas of fibroglandular density. FINDINGS: There are focal asymmetries in the superior aspect of the left breast on MLO view. No mammo graphic evidence for malignancy in the right breast. IMPRESSION: 1. Focal asymmetry superiorly in the left breast on MLO view. 2. Additional mammographic views and possible breast ultrasound are recommended. BI-RADS Category 0: Incomplete: Needs additional imaging evaluation. Reviewed, dictated and finalized at location A. 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 Focal asymmetry superiorly in the left breast on MLO view. 2. Additional mammographic views and possible breast ultrasound are recommended . BI-RADS Category 0: Incomplete: Needs additional imaging evaluation.
== END 2022-09-10 13:33 | disposition home or self-care (01) ==
LOC: CHSIMG 13:36
PROVIDERS: PCP Internal Medicine
DX: Z12.31 Encounter for screening mammogram for malignant neoplasm of breast (principal); R15.9 Full incontinence of feces; M86.8X8 Other osteomyelitis, other site; Z96.82 Presence of neurostimulator; R92.8 Other abnormal and inconclusive findings on diagnostic imaging of breast
CPT/HCPCS: 72170; 77063; 77067

== ENCOUNTER 2022-09-16 08:49 | Outpatient (CLI) | payer MEDICARE, SELFPAY | END 2022-09-16 08:50 | disposition home or self-care (01) | LOC: CHSIMG 08:51 | PROVIDERS: PCP Internal Medicine; Visit Provider Internal Medicine | DX: R92.8 Other abnormal and inconclusive findings on diagnostic imaging of breast (principal) | CPT/HCPCS: 99199 ==

== ENCOUNTER 2022-10-05 13:58 | Outpatient (RCR) | payer MEDICARE, SELFPAY ==
--- NOTE | 2022-10-05 14:50 | PTOPEVAL1 ---
Assessment and note entered by Peewee Keyes Evaluation Information Assessment Status Evaluation Diagnosis R shoulder pain Onset 07/05/22 Subjective Information Pt. reports that she developed right shoulder pain about 3 months ago. She describes pain in the area of the lateral brachial region and into the shoulder blade. She reports that she did have a shot from the doctor last week which has help to reduce her pain. She states that pain was increased anytime she attempted to reach away from her body with the right arm and reaching around her back to get dressed or put her bra on. She reports that she is right hand dominant. Her goal is to decrease her right shoulder pain. Reported Pain Level Pain Score 2: Self Report Assessment PT Clinical Summary Pt. is a 77 year old female who enters the clinic with right shoulder pain. She presents with indication of right shoulder impingement. Pt. currently presents with right shoulder stiffness, right shoulder weakness and pain. Continued skilled PT is indicated in order to allow the pt. to be able to complete all IADL's with improved comfort and mobility. Plan of Care Interventions Electrical Stimulation,Hot Pack/Cold Pack,Manual Therapy,Neuro Re-education,Therapeutic Activities, Therapeutic Exercise,Self-Care/Home Management PT Services Indicated Yes Treatment Frequency and 3x/week x 9 visits Duration These treatments will address the objective and functional deficits as defined above. The patient will be advanced safely and appropriately in order for the patient to progress towards his/her prior level of function. Additional exercises will be introduced and as well as a comprehensive home exercise program upon discharge, if needed, ?to ensure carryover of functional gains achieved in the clinic. This treatment plan has been reviewed and agreement upon by the patient.
== END 2022-10-27 09:58 | disposition home or self-care (01) ==
LOC: CHSPT 13:58
PROVIDERS: PCP Internal Medicine; Visit Provider Orthopaedic Surgery Hand Surgery
DX: M25.511 Pain in right shoulder (principal)
CPT/HCPCS: 97110; 97140; 97161; 97530

== ENCOUNTER 2022-12-16 10:03 | Outpatient (RCR) | payer MEDICARE, SELFPAY ==
--- NOTE | 2022-12-16 17:59 | PTOPEVAL1 ---
Assessment and note entered by JT File, PT Evaluation Information Assessment Status Evaluation Diagnosis impingement of R shoulder Onset 12/14/22 Subjective Information patient reports she is back for therapy for her R shoulder. she reports last bout of therapy she had an injection of the R shoulder prior to therapy beginning that wore off during therapy. she reports she currently is having increased pain and catching/sharp pain in the R shoulder. she reports she is inbetween having and MRI and consulting potential surgery. she reports she has increased pain/symptoms reaching behind her back, and out to her side. she reports reaching into a dog food bag has been very painful. Reported Pain Level Pain Score 0: Self Report Assessment PT Clinical Summary mrs. bloom is a 77 yo woman who presents to skilled PT evaluation for R shoulder pain. she presents this date with signs and symptoms consistent with her diagnosis of R shoulder impingement. however, these symptoms appear to be secondary to biceps/labral involvement and RTC weakness/prior injury. she presents with decreased R shoulder rom, decreased strength, decreased functional reaching, and pain. she would benefit from continued skilled PT to improve her objective /functional deficits and return to her PLOF. Plan of Care Interventions Electrical Stimulation,Hot Pack/Cold Pack,Manual Therapy,Neuro Re-education,Patient/Caregiver Educati,Therapeutic Activities,Therapeutic Exercise PT Services Indicated Yes Treatment Frequency and 3x weekly for 9 visits Duration These treatments will address the objective and functional deficits as defined above. The patient will be advanced safely and appropriately in order for the patient to progress towards his/her prior level of function. Additional exercises will be introduced and as well as a comprehensive home exercise program upon discharge, if needed, ?to ensure carryover of functional gains achieved in the clinic. This treatment plan has been reviewed and agreement upon by the patient.
--- NOTE | 2023-01-07 10:47 | PTOPPROG ---
Assessment and note entered by Ariana Mujica, PT Evaluation Information Assessment Status Progress Diagnosis R shoulder impingement Onset 12/14/22 Subjective Information Nguyen Herron reports her right shoulder continues to be painful with certain movements and she still gets catching in it. She does feel the catching happens less often. She is able to perform all her daily activities without limitations however, she is limiting how much she lifts and certain movements. She feels she has only improved 20% overall. Assessment PT Clinical Summary Nguyen Herron has completed 8 skilled PT visits for right shoulder impingement. She is reporting a 20% overall improvement since initiating PT. She notes the catching in her right shoulder happens less frequently but still occurs. She is limiting how she moves the right shoulder and how much she lifts. She objectively demonstrates improved right shoulder internal rotation AROM however, she has regressed with flexion, abduction, and external rotation. She continues to demonstrate positive special tests consistent with shoulder impingement and biceps tendonitis. She will see her referring physician on 01/11/23. Skilled PT will be put on hold until that follow up with possible discharge if no additional orders are received. Plan of Care Interventions Electrical Stimulation,Hot Pack/Cold Pack,Manual Therapy,Neuro Re-education,Patient/Caregiver Educati,Therapeutic Activities,Therapeutic Exercise PT Services Indicated Yes Treatment Frequency and Pending follow up with physician on 01/11/23. Duration These treatments will address the objective and functional deficits as defined above. The patient will be advanced safely and appropriately in order for the patient to progress towards his/her prior level of function. Additional exercises will be introduced and as well as a comprehensive home exercise program upon discharge, if needed, ?to ensure carryover of functional gains achieved in the clinic. This treatment plan has been reviewed and agreement upon by the patient.
== END 2023-01-07 23:59 | disposition home or self-care (01) ==
LOC: CHSPT 10:03
PROVIDERS: Visit Provider Orthopaedic Surgery Hand Surgery
DX: M75.41 Impingement syndrome of right shoulder (principal)
CPT/HCPCS: 97014; 97110; 97140; 97161; G0283

== ENCOUNTER 2023-03-29 08:18 | Outpatient (CLI) | payer MEDICARE, SELFPAY ==
[2023-03-29 08:30] LABS: Basophils Absolute Auto 0.02 K/mm3 (0.00-0.10); Basophils Percent Auto 0.5 % (0.0-1.0); Eosinophils Absolute Auto 0.11 K/mm3 (0.02-0.50); Eosinophils Percent Auto 2.5 % (1.0-6.0); Hematocrit 37.5 % (35.0-42.0); Immature Granulocyte Absolute 0.02 K/mm3 (0.00-0.00); Immature Granulocyte Percent A 0.5 % (0.0-0.0); Lymphocytes Percent Auto 31.7 % (18.0-42.0); Mean Corpuscular Hemoglobin 29.7 pg (27.0-31.0); Mean Corpuscular Volume 92.8 fL (78.0-102.0); Mean Platelet Volume 9.2 fl (9.2-11.8); Monocytes Absolute Auto 0.31 K/mm3 (0.10-0.90); Neutrophils Absolute Auto 2.6 K/mm3 (1.7-7.2); Neutrophils Percent Auto 57.8 % (50.0-70.0); Platelet Count Result 243 K/mm3 (150-420); Red Blood Count 4.04 M/mm3 (4.20-5.40); Red Cell Distribution Width 12.5 % (11.6-14.4); White Blood Count 4.4 K/mm3 (4.8-10.8)
[2023-03-29 08:39] LABS: Appearance Urine Clear (Clear); Bilirubin Urine Negative (Negative); Blood Urine Negative (Negative); Color Urine Light Yellow (Yellow); Glucose Urine UA Negative (Negative); Ketones Urine Negative (Negative); Leukocyte Esterase Ur 1+ (Negative); Nitrate Urine Negative (Negative); Protein Urine Negative (Negative); Urobilinogen Urine 0.2 mg/dL (0.2-1.0); pH Urine 5.5 (5.0-8.0)
[2023-03-29 08:44] LABS: Creatinine Urine 68.73 mg/dL (40-278); MALB Creatinine Ratio 18.9 mg/g (0-30); Microalbumin Urine Random < 13.0 mg/L
[2023-03-29 08:50] LABS: Add Urine Microscopic? YES; Bacteria Urine Trace /hpf; RBC Urine None seen /hpf (0-2); Squamous Epithelial Cell Urine Rare /hpf (Few); Starch Ur Present /hpf; WBC Urine 0-3 /hpf (0-3)
[2023-03-29 09:42] LABS: Alanine Aminotransferase 29 U/L (14-59); Albumin Level 3.9 g/dL (3.4-5.0); Alkaline Phosphatase 105 U/L (46-116); Anion Gap 9 mmol/L (8-16); Aspartate Amino Transferase 19 U/L (15-37); Bilirubin,Total 0.3 mg/dL (0.00-1.00); Blood Urea Nitrogen 18 mg/dL (7-18); Calcium 9.2 mg/dL (8.5-10.1); Carbon Dioxide 29 mmol/L (21-32); Chloride 106 mmol/L (98-108); Cholesterol 166 mg/dL (0-200); Estimated Glomerular Filt Rate 56; Ferritin 55 ng/mL (8-252); Free T4 Free Thyroxine 0.89 ng/dL (0.76-1.46); Glucose 86 mg/dL (70-99); HDL Direct 36 mg/dL (40-60); Iron 48 ug/dL (50-170); LDL Cholesterol Calculated 87 mg/dL (<130); Osmolality Calculated 298 mOsm/kg (285-295); Potassium 4.5 mmol/L (3.5-5.1); Sodium 144 mmol/L (136-145); Total Protein 7.1 g/dL (6.4-8.2); Triglycerides 213 mg/dL (0-150); Vitamin B12 948 pg/mL (193-986)
[2023-03-29 09:43] LABS: CRP < 0.5 mg/dL (0.0-0.9)
[2023-03-30 07:51] LABS: Creatine Kinase 77 U/L (26-192)
[2023-03-31 17:36] LABS: SS-A >8.0; SS-B <1.0
[2023-04-02 05:55] LABS: Red Blood Cell Folate 803 ng/mL RBC (>280)
== END 2023-03-29 08:19 | disposition home or self-care (01) ==
LOC: CHSLAB 08:19
PROVIDERS: PCP Internal Medicine; Visit Provider Internal Medicine
DX: R19.7 Diarrhea, unspecified (principal); E78.2 Mixed hyperlipidemia; I10 Essential (primary) hypertension; D64.9 Anemia, unspecified; R53.82 Chronic fatigue, unspecified
CPT/HCPCS: 36415; 80053; 80061; 81001; 82043; 82550; 82607; 82728; 82747; 83540; 84439; 84443; 85025; 86038; 86140; 86225; 86235

== ENCOUNTER 2023-04-19 14:20 | Outpatient (CLI) | payer MEDICARE, SELFPAY ==
--- NOTE | ~2023-04-19 | XR_ITS ---
EXAMINATION: XR ankle LT min 3V, XR foot LT min 3V DATE: 04/19/2023 14:43 INDICATION: Left foot and ankle injury TECHNIQUE: 1. Anteroposterior, mortise, additional oblique and lateral view of the left ankle were obtained. 2. Dorsoplantar, two oblique and lateral views of the left foot were obtained. COMPARISON: None. FINDINGS: Alignment of the left foot and ankle is normal. No fracture. Polyarticular osteoarthritis, severe at the third tarsal metatarsal joint, moderate severity at the first metatarsophalangeal and fourth and fifth tarsal metatarsal and a few predominantly distal interphalangeal joints. Additional moderate to severe osteoarthritis at several of the interphalangeal joints. Bunion with cystic change at the med ial aspect of the head of the first metatarsal with mild overlying soft tissue swelling. Small Achill es calcaneal spur. No ankle joint effusion. IMPRESSION: 1. No acute osseous abnormality at the left foot or ankle. 2. 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 Reviewed, dictated and finalized at location L. IMPRESSION: 1. No acute osseous abnormality at the left foot or ankle. 2. 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
== END 2023-04-19 14:21 | disposition home or self-care (01) ==
LOC: CHSIMG 14:21
PROVIDERS: PCP Internal Medicine; Visit Provider Internal Medicine
DX: S99.912A Unspecified injury of left ankle, initial encounter (principal); S99.922A Unspecified injury of left foot, initial encounter; M19.072 Primary osteoarthritis, left ankle and foot
CPT/HCPCS: 73610; 73630

== ENCOUNTER 2023-05-03 09:41 | Outpatient (CLI) | payer MEDICARE, SELFPAY ==
--- NOTE | ~2023-05-03 | US_ITS ---
EXAMINATION: US venous doppler [facility] DATE: 05/03/2023 10:08 INDICATION: Left lower limb pain and swelling. TECHNIQUE: Grayscale ultrasound images without and with compression and Doppler ultrasound images of the left lower extremity veins were obtained. COMPARISON: None. FINDINGS: The visualized portions of left common femoral vein, profunda (deep) femoral vein, femoral vein, popl iteal vein, peroneal veins, posterior tibial veins, and greater saphenous vein outflow are patent. IMPRESSION: 1. No deep venous thrombosis. Reviewed, dictated and finalized at location A.
== END 2023-05-03 09:42 | disposition home or self-care (01) ==
LOC: CHSIMG 09:45
PROVIDERS: PCP Internal Medicine; Visit Provider Internal Medicine
DX: S99.912A Unspecified injury of left ankle, initial encounter (principal); M79.89 Other specified soft tissue disorders
CPT/HCPCS: 93971

== ENCOUNTER 2023-05-05 10:07 | Outpatient (CLI) | payer MEDICARE, SELFPAY ==
--- NOTE | ~2023-05-05 | CT_ITS ---
EXAMINATION: CT ankle LT wo con DATE: 05/05/2023 10:29 INDICATION: Left ankle pain. TECHNIQUE: Computed tomography (CT) of the left ankle was performed without intravenous contrast. Aut omated exposure control and iterative reconstruction technique were employed. The dose-length product was 382.55 mGy-cm. COMPARISON: Left ankle radiographs 04/19/2023 FINDINGS: Bone alignment is normal. No fracture. There is mild ankle joint osteoarthritis. There is s evere osteoarthritis of second and third tarsometatarsal joints and moderate osteoarthritis of fourth and fifth distal metatarsal joints. There is moderate subtalar joint osteoarthritis. There is an ent hesophyte at posterior aspect of calcaneal tuberosity. IMPRESSION: 1. No fracture. 2. Polyarticular osteoarthritis. Reviewed, dictated and finalized at location A.
== END 2023-05-05 10:08 | disposition home or self-care (01) ==
LOC: CHSIMG 10:08
PROVIDERS: PCP Internal Medicine; Visit Provider Internal Medicine
DX: M25.572 Pain in left ankle and joints of left foot (principal); M19.072 Primary osteoarthritis, left ankle and foot
CPT/HCPCS: 73700

== ENCOUNTER 2023-07-15 09:24 | Outpatient (CLI) | payer MEDICARE, SELFPAY ==
[2023-07-15 09:36] LABS: Basophils Absolute Auto 0.03 K/mm3 (0.00-0.10); Basophils Percent Auto 0.3 % (0.0-1.0); Eosinophils Absolute Auto 0.03 K/mm3 (0.02-0.50); Eosinophils Percent Auto 0.3 % (1.0-6.0); Hematocrit 38.4 % (35.0-42.0); Hemoglobin 12.5 g/dL (11.7-13.8); Immature Granulocyte Absolute 0.04 K/mm3 (0.00-0.00); Immature Granulocyte Percent A 0.4 % (0.0-0.0); Immature Reticulocyte Fraction 9.2 % (2.0-16.52); Mean Corpuscular HGB Conc 32.6 g/dL (32.0-36.0); Mean Corpuscular Volume 92.1 fL (78.0-102.0); Mean Platelet Volume 9.1 fl (9.2-11.8); Monocytes Absolute Auto 0.88 K/mm3 (0.10-0.90); Monocytes Percent Auto 8.8 % (2.0-11.0); Neutrophils Absolute Auto 7.6 K/mm3 (1.7-7.2); Neutrophils Percent Auto 76.2 % (50.0-70.0); Platelet Count Result 247 K/mm3 (150-420); Red Blood Count 4.17 M/mm3 (4.20-5.40); Red Cell Distribution Width 12.9 % (11.6-14.4); Reticulocyte Hemoglobin Conten 33.4 pg (28.0-35.0); Reticulocyte Percent 0.92 % (0.50-1.50); Reticulocytes Absolute 0.04 M/mm3 (0.02-0.1)
[2023-07-15 11:09] LABS: Ferritin 102 ng/mL (8-252); Iron 51 ug/dL (50-170)
== END 2023-07-15 09:25 | disposition home or self-care (01) ==
LOC: CHSLAB 09:26
PROVIDERS: PCP Internal Medicine; Visit Provider Internal Medicine
DX: D64.9 Anemia, unspecified (principal)
CPT/HCPCS: 36415; 82728; 83540; 85025; 85046

== ENCOUNTER 2023-10-25 13:34 | Outpatient (CLI) | payer MEDICARE, SELFPAY | END 2023-10-25 13:35 | disposition home or self-care (01) | LOC: CHSIMG 13:37 | PROVIDERS: PCP Internal Medicine; Visit Provider Internal Medicine | DX: Z12.31 Encounter for screening mammogram for malignant neoplasm of breast (principal) | CPT/HCPCS: 99199 ==

== ENCOUNTER 2023-10-26 08:43 | Outpatient (CLI) | payer MEDICARE, SELFPAY ==
--- NOTE | ~2023-10-26 | MM_ITS ---
EXAMINATION: MM screening sher BI w udke HISTORY: Screening mammogram TECHNIQUE: Craniocaudal and mediolateral oblique 3-D tomosynthesis images were obtained and synthetic 2-D images were generated. CAD analysis was submitted and interpreted. COMPARISON: 04/03/2019, 09/10/2022 bilateral screening mammogram examinations.. BREAST PARENCHYMAL COMPOSITION: There are scattered areas of fibroglandular density. FINDINGS: Stable small circumscribed bilateral intramammary lymph nodes. Biopsy marker on the right; history of prior bilateral benign breast biopsies. There is no evidence o f suspicious mass, calcification, or architectural distortion to suggest malignancy in either breast. There has been no suspicious interval change. IMPRESSION: 1. No mammographic evidence of malignancy. 2. Recommend routine screening mammography in one year. BI-RADS Category 2: Benign finding(s). Reviewed, dictated and finalized at location A. 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
== END 2023-10-26 08:44 | disposition home or self-care (01) ==
LOC: CHSIMG 08:44
PROVIDERS: PCP Internal Medicine; Visit Provider Internal Medicine
DX: Z12.31 Encounter for screening mammogram for malignant neoplasm of breast (principal)
CPT/HCPCS: 77063; 77067

== ENCOUNTER 2023-11-28 17:02 | Outpatient (RCR) | payer MEDICARE, SELFPAY ==
--- NOTE | 2023-11-28 14:37 | OPREHPOC ---
Outpatient Therapy Plan of Care This is a Multidisciplinary Plan of Care that may contain components documented by all disciplines (PT, OT, and ST.) PT Problem 1 PT Problem #1 Knowledge Deficit PT Goal 1 Goal Patient to demonstrate independence with HEP Target Visit 6 PT Problem 2 PT Problem #2 Pain PT Goal 1 Goal 1. Patient to report highest pain at 2/10 Target Visit 12 PT Problem 3 PT Problem #3 Impaired Range of Motion PT Goal 1 Goal Patient to demonstrate 0-120 deg of R knee AROM to return to stair navigation at PLOF Target Visit 12 PT Problem 4 PT Problem #4 Impaired Functional Mobil PT Goal 1 Goal 1. Patient to demonstrate 5/5 strength of R LE to return to standing up from a chair with no R knee pain 2. Patient to complete 6 min walk test with no AD 3. Patient to report ability to return to grocery shopping with no reports of R knee pain Target Visit 12
--- NOTE | 2023-11-28 14:37 | PTOPEVAL1 ---
Assessment and note entered by Diandra Krishnamurthy DPT Evaluation Information Assessment Status Evaluation Diagnosis R knee pain Onset 11/21/23 Subjective Information Patient underwent R TKA on 11/21/23. She reports since pain has not been bad. She reports she has not taken prescribed pain medication. She presents today with walker but did not previously use an AD. She is not currently driving. She has 4 steps to enter her home with a railing on the R. She reports she is having difficulty getting out of chair, stair navigation and walking prolonged distances. RTMD on 01/17/24. Reported Pain Level Pain Score 0: Self Report Assessment PT Clinical Summary Mrs. Herron is a 78year old female who presents to PT with R knee pain s/p R TKA. She demonstrates decreased R knee ROM, decreased R knee strength and impaired gait mechanics limiting her ability to navigate stairs, stand up from chair and ambulate prolonged distances. She would benefit from skilled PT to address impairments and return to PLOF. Plan of Care Interventions Electrical Stimulation,Gait Training,Hot Pack/Cold Pack,Intermittent Compression,Manual Therapy, Neuro Re-education,Patient/Caregiver Educati, Therapeutic Activities,Therapeutic Exercise PT Services Indicated Yes Treatment Frequency and 3x weekly for 12 visits Duration These treatments will address the objective and functional deficits as defined above. The patient will be advanced safely and appropriately in order for the patient to progress towards his/her prior level of function. Additional exercises will be introduced and as well as a comprehensive home exercise program upon discharge, if needed, ?to ensure carryover of functional gains achieved in the clinic. This treatment plan has been reviewed and agreement upon by the patient.
--- NOTE | 2023-12-21 14:32 | OPREHPOC ---
Outpatient Therapy Plan of Care This is a Multidisciplinary Plan of Care that may contain components documented by all disciplines (PT, OT, and ST.) PT Problem 1 PT Problem #1 Knowledge Deficit PT Goal 1 Goal Patient to demonstrate independence with HEP Target Visit 6 Progress Met PT Problem 2 PT Problem #2 Pain PT Goal 1 Goal 1. Patient to report highest pain at 2/10 Target Visit 12 Progress Met PT Problem 3 PT Problem #3 Impaired Range of Motion PT Goal 1 Goal Patient to demonstrate 0-120 deg of R knee AROM to return to stair navigation at PLOF Target Visit 12 Progress Met PT Problem 4 PT Problem #4 Impaired Functional Mobil PT Goal 1 Goal 1. Patient to demonstrate 5/5 strength of R LE to return to standing up from a chair with no R knee pain 2. Patient to complete 6 min walk test with no AD met 3. Patient to report ability to return to grocery shopping with no reports of R knee pain Target Visit 12 Progress Partially Met
--- NOTE | 2023-12-21 14:32 | PTOPPROG ---
Assessment and note entered by Diandra Krishnamurthy DPT Evaluation Information Assessment Status Progress Diagnosis R knee pain Onset 11/21/23 Subjective Information patient reports her knee continues to do well. she reports that she has been able to drive and get into and out of the car with no difficulty. she reports she can also navigate steps with no difficulty. she reports she has also been sleeping well. she reports independence with HEP. she reports she gets stiff with prolonged positioning. she returns to MD on 01/17/24. Assessment PT Clinical Summary Mrs. Herron has attended 10 visits of skilled PT with great progression towards goals. She has met goals for pain and ROM at the R knee. She is able to achieve 0-131 deg of R knee active ROM. She has also made great improvement in strength but has not achieved 5/5. She reports at times she has difficulty with sitting for prolonged periods. She will benefit from continued skilled PT to address remaining impairments and return to PLOF. Plan of Care Interventions Electrical Stimulation,Gait Training,Hot Pack/Cold Pack,Intermittent Compression,Manual Therapy, Neuro Re-education,Patient/Caregiver Educati, Therapeutic Activities,Therapeutic Exercise PT Services Indicated Yes Treatment Frequency and continue with current POC Duration These treatments will address the objective and functional deficits as defined above. The patient will be advanced safely and appropriately in order for the patient to progress towards his/her prior level of function. Additional exercises will be introduced and as well as a comprehensive home exercise program upon discharge, if needed, ?to ensure carryover of functional gains achieved in the clinic. This treatment plan has been reviewed and agreement upon by the patient.
--- NOTE | 2023-12-28 11:21 | PTOPDC ---
Assessment and note entered by JT File, PT Evaluation Information Assessment Status Discharge Diagnosis R knee pain Onset 11/21/23 Subjective Information patient reports she feels Good today. she reports she has noticed the past week it has been a little tighter at times with bending. however, she reports with the nicer weather she has been out working in the yard. she reports she is grocery shopping, and has returned to all prior level activities. she reports she does not follow up with the MD for another few weeks. Reported Pain Level Pain Score 0: Self Report Assessment PT Clinical Summary mrs. bloom presents to skilled PT for her 12th skilled therapy visit. as of this date, she has achieved all goals for skilled PT. she is compliant with her HEP at home, and has returned to all prior level functional activities. she will be DC'd from skilled PT services today and continue with HEP independent at home. she was advised to call and follow up with PT regarding any issues prior to her follow up with the MD at the end of the month. Plan of Care PT Services Indicated Yes
== END 2023-12-28 11:25 | disposition home or self-care (01) ==
LOC: CHSPT 17:02
PROVIDERS: Visit Provider Orthopaedic Surgery
DX: Z47.1 Aftercare following joint replacement surgery (principal); Z96.651 Presence of right artificial knee joint
CPT/HCPCS: 97016; 97110; 97112; 97161

== ENCOUNTER 2024-04-17 08:36 | Emergency (ER) | payer MEDICARE, SELFPAY ==
[2024-04-17] VITALS (20 sets, daily range): BP systolic 95–132; BP diastolic 62–88; PULSE 86; RESP 12; TEMP 36.2; O2SAT 85–100
--- NOTE | ~2024-04-17 | CT_ITS ---
CT abdomen pelvis wo con Ordering provider: Robert Trevizo MD History: 79 years Female with . VOMITING/AND ABDOMEN PAIN . Comparison: None. Technique: CT abdomen and pelvis with IV and without oral contrast. Automated exposure control and it erative reconstruction technique were employed. The dose-length product was 283.06 mGy-cm. Findings: VISUALIZED LOWER CHEST: Normal. UPPER ABDOMINAL ORGANS: Liver: Normal. Gallbladder: Normal. Spleen: Normal. Stomach/duodenum: Sliding hiatus hernia. Pancreas: Atrophic pancreas Adrenals: Normal. Kidneys: Unchanged Stone seen in the left mid pole. Dilated pelvic calyceal is seen bilaterally uncha nged from previous examination suggestive of pelviureteric junction stenosis . No definite ureteric s tones seen. PELVIC ORGANS: The bladder is normal. Status post hysterectomy. BOWEL AND MESENTERY: Colon: No evidence of diverticulitis. Fluid content seen in the distal colon Normal appendix. Small Bowel: Fluid seen in the small bowel with slightly dilated bowel loops in the pelvis which may indicate early obstruction versus diarrhea versus enteritis. No thickening of the wall is noted. Foll ow-up advised. Peritoneum/mesentery: No free air or free fluid. No mesenteric lymphadenopathy. RETROPERITONEUM: Mild atheromatous disease of the abdominal aorta. No retroperitoneal lymphadenopat hy. MUSCULOSKELETAL: Superficial soft tissues: The superficial soft tissues are normal. Bones: Age appropriate degenerative changes of the spine. Pubic symphysitis. Device seen in the left buttock area. Minimal anterolisthesis at the level of L5 IMPRESSION: 1. Left kidney stone unchanged from previous examination. 2. Bilateral dilated pelvis suggestive of pelviureteric junction stenosis. 3. Fluid in the distal colon with slightly dilated small bowel loops with with fluid content which m ay indicate early obstruction. Other differential include diarrhea and enteritis. Clinical correlatio n and follow-up advised. 4. Sliding hiatus hernia Reviewed, dictated and finalized at location A. IMPRESSION: 1. Left kidney stone unchanged from previous examination. 2. Bilateral dilated pelvis suggestive of pelviureteric junction stenosis. 3. Fluid in the distal colon with slightly dilated small bowel loops with with fluid content which may indicate early obstruction. Other differential include diarrhea and enteritis. Clinical correlation and follow-up advised. 4. Sliding hiatus hernia
--- NOTE | 2024-04-17 08:58 | ED.NAVMDI ---
HPI - Nausea/Vomiting/Diarrhea General Chief complaint: Nausea/Vomiting/Diarrhea Stated complaint: n-v-d Time Seen by Provider: 04/17/24 08:47 Source: patient Mode of arrival: EMS Limitations: no limitations History of Present Illness HPI Narrative: Patient is a 79-year-old female with nausea vomiting and diarrhea since this morning. She felt like she got into some bad food yesterday. Fruit and vegetables were her concern. She has associated abdominal pain. It is diffuse. patient has a rectal sphincter stimulator. She has chronic stool incontinence from a childhood problem. MD elicited complaint: nausea, vomiting, diarrhea and abdominal pain Pertinent past history: other ( Chronic stool incontinence issue) Onset (ago): day(s) (1) Description of vomiting: food contents, watery, foul-smelling and feculent Description of diarrhea: mucus and watery Associated nausea: Yes Associated abdominal pain: Yes Location of pain: diffuse Radiation: diffuse Pain consistency: constant Severity: mild Pain scale (0-10): 3 Quality: cramping Exacerbating factors: none Relieving factors: none Context: possible food poisoning Associated symptoms: loss of appetite, nausea/vomiting, weakness, fecal incontinence ( chronically) and numbness ( bilateral hands) Related Data Home Medications Medication Instructions Recorded Confirmed hydrochlorothiazide 12.5 mg tablet 12.5 mg PO DAILY 07/28/19 04/17/24 lisinopril 20 mg tablet 20 mg PO DAILY 07/28/19 04/17/24 omeprazole 40 mg capsule,delayed 40 mg PO DAILY 07/28/19 04/17/24 release propranolol 20 mg tablet 20 mg PO Q12H 07/28/19 04/17/24 simvastatin 20 mg tablet 20 mg PO DAILY 07/28/19 04/17/24 Allergies Allergy/AdvReac Type Severity Reaction Status Date / Time morphine AdvReac Severe Headache Verified 04/17/24 08:49 Review of Systems Review of Systems: All systems reviewed & are unremarkable except as noted in HPI and below Constitutional: Constitutional: Reports no additional constitutional complaints Eyes: Eyes: Reports no additional eye complaints ENT: Reports system reviewed and no additional complaints, except as documented Cardiovascular: Cardiovascular: Reports no additional cardiovascular complaints Respiratory: Respiratory: Reports no additional respiratory complaints Gastrointestinal: Gastrointestinal: Reports no additional gastrointestinal complaints Genitourinary: Genitourinary: Reports no additional female genitourinary complaints Musculoskeletal: Musculoskeletal: Reports no additional musculoskeletal complaints Integumentary/Breasts: Skin/Breast: Reports system reviewed and no additional complaints, except as docu Neurologic: Reports system reviewed and no additional complaints, except as documented Psychiatric: Psychiatric: Reports no additional psychiatric complaints Endocrine: Endocrine: Reports no additional endocrine complaints Hematologic/Lymphatic: Hematologic/Lymphatic: Reports no additional hematologic/lymphatic complaints Allergic/Immunologic: Allergic/Immunologic: Reports no additional allergic/immunologic complaints PMFSH Past Medical History Medical History Arthritis Elevated lipids Hypertension Tricuspid regurgitation Surgical History Surgical History H/O cataract extraction S/P placement of nerve stimulator Bladder Family History Family History Father Bladder cancer Mother , at 97 yo Abdominal malignancy Abdominal mass Son No problems noted. Social History Social History Smoking status: Never smoker Second hand tobacco smoke exposure: Yes (none for 7 years) Alcohol intake: never Substance use: never Gender identity (if verbalized by the patient): Female Spiritual care concerns:
[2024-04-17] MEDS: LACTATED RINGERS 1,000 ML 999 ML IV CONT (09:03)
[2024-04-17 09:10] LABS: Basophils Absolute Auto 0.02 K/mm3 (0.00-0.10); Basophils Percent Auto 0.2 % (0.0-1.0); Eosinophils Absolute Auto 0.09 K/mm3 (0.02-0.50); Eosinophils Percent Auto 0.8 % (1.0-6.0); Hematocrit 39.9 % (35.0-42.0); Hemoglobin 13.5 g/dL (11.7-13.8); Immature Granulocyte Absolute 0.05 K/mm3 (0.00-0.00); Immature Granulocyte Percent A 0.5 % (0.0-0.0); Lymphocytes Absolute Auto 0.33 K/mm3 (1.10-4.50); Mean Corpuscular HGB Conc 33.8 g/dL (32-36); Mean Corpuscular Hemoglobin 29.4 pg (27.0-31.0); Mean Corpuscular Volume 86.9 fL (78.0-102.0); Mean Platelet Volume 9.3 fl (9.2-11.8); Monocytes Absolute Auto 0.68 K/mm3 (0.10-0.90); Monocytes Percent Auto 6.2 % (2.0-11.0); Neutrophils Absolute Auto 9.83 K/mm3 (1.70-7.20); Neutrophils Percent Auto 89.3 % (50.0-70.0); Platelet Count Result 256 K/mm3 (150-420); Red Blood Count 4.59 M/mm3 (4.20-5.40); Red Cell Distribution Width 13.5 % (11.6-14.4)
--- NOTE | 2024-04-17 09:18 | PC.NURSE ---
Pt's skin W/D/P on arrival. Noted jittery. Denies blood or mucous in stool. Denies any pain. Pt complains of being extremely cold. Covered with warm blankets. No fever.
[2024-04-17 09:24] LABS: Alanine Aminotransferase 23 U/L (14-59); Albumin Level 4.4 g/dL (3.4-5.0); Alkaline Phosphatase 118 U/L (46-116); Anion Gap 10 mmol/L (4-12); Aspartate Amino Transferase 21 U/L (15-37); Bilirubin,Total 0.9 mg/dL (0.00-1.00); Blood Urea Nitrogen 22 mg/dL (7-18); Calcium 10.3 mg/dL (8.5-10.1); Carbon Dioxide 26 mmol/L (21-32); Chloride 104 mmol/L (98-108); Estimated CRCL calculation 32 ml/min; Estimated Glomerular Filt Rate 48; Glucose 117 mg/dL (70-99); Lipase 42 U/L (16-77); Osmolality Calculated 294 mOsm/kg (285-295); Potassium 4.7 mmol/L (3.5-5.1); Sodium 140 mmol/L (136-145); Total Protein 8.7 g/dL (6.4-8.2)
[2024-04-17 09:25] LABS: INR 0.9; Partial Thromboplastin Time 29.6 Sec (23.9-30.70); Prothrombin Time 10.4 Seconds (9.50-12.1)
[2024-04-17 09:29] LABS: Lactic Acid Reflex 2.7 mmol/L (0.4-2.0)
--- NOTE | 2024-04-17 09:32 | PC.NURSE ---
Pt cleaned up and given clean depends. More warm blankets applied.
--- NOTE | 2024-04-17 09:50 | PC.NURSE ---
No stool noted when pt was changed. Mostly water.
--- NOTE | 2024-04-17 10:55 | PC.NURSE ---
Pt is resting comfortably in her stretcher. Dozing off and on. I told her that we are waiting to her back from hospitalist at [facility] regarding her transfer.
--- NOTE | 2024-04-17 11:54 | PC.NURSE ---
Pt resting. Updated her status of possible admission.
[2024-04-17 12:08] LABS: Reflex Lactic Acid Yes or No Add Lactic
[2024-04-17 12:43] LABS: Lactic Acid 1.3 mmol/L (0.4-2.0)
== END 2024-04-17 13:56 | disposition home or self-care (01) ==
PROVIDERS: Emergency Provider Emergency Medicine; PCP Internal Medicine
DX: K52.9 Noninfective gastroenteritis and colitis, unspecified (principal); I10 Essential (primary) hypertension; Z79.899 Other long term (current) drug therapy; R20.0 Anesthesia of skin
CPT/HCPCS: 36415; 74176; 80053; 83605; 83690; 85025; 85610; 85730; 96360; 96361; 99284; J7120

== ENCOUNTER 2024-04-27 15:52 | Outpatient (CLI) | payer MEDICARE, SELFPAY ==
[2024-04-27 16:20] LABS: Hematocrit 33.1 % (35.0-42.0); Hemoglobin 11.3 g/dL (11.7-13.8); Mean Corpuscular HGB Conc 34.1 g/dL (32-36); Mean Corpuscular Hemoglobin 29.8 pg (27.0-31.0); Mean Corpuscular Volume 87.3 fL (78.0-102.0); Mean Platelet Volume 9.5 fl (9.2-11.8); Platelet Count Result 236 K/mm3 (150-420); Red Blood Count 3.79 M/mm3 (4.20-5.40); White Blood Count 4.2 K/mm3 (4.8-10.8)
[2024-04-27 16:39] LABS: Alanine Aminotransferase 25 U/L (14-59); Albumin Level 3.7 g/dL (3.4-5.0); Alkaline Phosphatase 108 U/L (46-116); Anion Gap 10 mmol/L (4-12); Aspartate Amino Transferase 19 U/L (15-37); Bilirubin,Total 0.4 mg/dL (0.00-1.00); Blood Urea Nitrogen 18 mg/dL (7-18); Calcium 9.1 mg/dL (8.5-10.1); Carbon Dioxide 29 mmol/L (21-32); Chloride 106 mmol/L (98-108); Estimated Glomerular Filt Rate 51; Glucose 93 mg/dL (70-99); Osmolality Calculated 301 mOsm/kg (285-295); Sodium 145 mmol/L (136-145); Total Protein 6.9 g/dL (6.4-8.2)
== END 2024-04-27 15:53 | disposition home or self-care (01) ==
PROVIDERS: PCP Internal Medicine; Visit Provider Internal Medicine
DX: A09 Infectious gastroenteritis and colitis, unspecified (principal)
CPT/HCPCS: 36415; 80053; 85027

== ENCOUNTER 2024-05-09 10:42 | Outpatient (CLI) | payer MEDICARE, SELFPAY ==
[2024-05-09 11:02] LABS: Hematocrit 36.7 % (35.0-42.0); Hemoglobin 11.9 g/dL (11.7-13.8); Mean Corpuscular HGB Conc 32.4 g/dL (32-36); Mean Corpuscular Hemoglobin 28.7 pg (27.0-31.0); Mean Corpuscular Volume 88.6 fL (78.0-102.0); Mean Platelet Volume 9.3 fl (9.2-11.8); Platelet Count Result 230 K/mm3 (150-420); Red Blood Count 4.14 M/mm3 (4.20-5.40); Red Cell Distribution Width 13.7 % (11.6-14.4); White Blood Count 3.5 K/mm3 (4.8-10.8)
[2024-05-09 11:32] LABS: Total Cells Counted 100
[2024-05-09 11:33] LABS: Band Neutrophils Percent 0 % (0-6); Lymphocytes Absolute Manual 0.94 K/mm3 (1.1-4.5); Lymphocytes Percent Manual 27 % (18-44); Neutrophils Percent Manual 60 % (46-73)
[2024-05-09 11:34] LABS: Eosinophils Absolute Manual 0.17 K/mm3 (0.02-0.50); Eosinophils Percent Manual 5 % (1-6); Monocytes Absolute Manual 0.28 K/mm3 (0.1-0.90); Monocytes Percent Manual 8 % (3-9); Platelet Estimate Adequate (Adequate)
[2024-05-09 12:14] LABS: Anion Gap 7 mmol/L (4-12); Blood Urea Nitrogen 18 mg/dL (7-18); Calcium 9.4 mg/dL (8.5-10.1); Carbon Dioxide 30 mmol/L (21-32); Chloride 103 mmol/L (98-108); Estimated Glomerular Filt Rate 58; Glucose 85 mg/dL (70-99); Osmolality Calculated 290 mOsm/kg (285-295); Sodium 140 mmol/L (136-145)
== END 2024-05-09 10:43 | disposition home or self-care (01) ==
LOC: CHSLAB 10:46
PROVIDERS: PCP Internal Medicine
DX: I07.1 Rheumatic tricuspid insufficiency (principal); R06.02 Shortness of breath
CPT/HCPCS: 36415; 80048; 85025; 85027

== ENCOUNTER 2024-08-01 14:02 | Outpatient (CLI) | payer MEDICARE, SELFPAY ==
--- NOTE | ~2024-08-01 | XR_ITS ---
XR knee LT min 4V Ordering provider: Praveena Mcfarland MD History: . left knee pain . Comparison: None. FINDINGS: BONES: No acute fracture or dislocation. Small sclerotic bone is seen in the inferior femur. JOINT SPACES: Osteophytes seen posteriorly SOFT TISSUES: Minimal fluid in the suprapatellar bursa. IMPRESSION: No acute osseous abnormality left knee. Mild osteoarthritic changes. Reviewed, dictated and finalized at location A. [employer]
== END 2024-08-01 14:03 | disposition home or self-care (01) ==
PROVIDERS: PCP Internal Medicine; Visit Provider Internal Medicine
DX: M25.562 Pain in left knee (principal)
CPT/HCPCS: 73564

== ENCOUNTER 2024-09-03 15:34 | Emergency (ER) | payer MEDICARE, SELFPAY ==
--- NOTE | ~2024-09-03 | CT_ITS ---
EXAMINATION: CT abdomen pelvis w con DATE: 09/03/2024 18:08 INDICATION: Abdominal pain. TECHNIQUE: Computed tomography (CT) of the abdomen and pelvis was performed with 100 mL Omnipaque 350 intravenous contrast. Automated exposure control and iterative reconstruction technique were employe d. The dose-length product was 331.00 mGy-cm. COMPARISON: CT abdomen and pelvis 04/17/2024 FINDINGS: The visualized portions of lung bases demonstrate mild atelectasis. No pleural effusion. Th e heart size is normal. No pericardial effusion. There is a small sliding hiatal hernia. The liver, g allbladder, spleen, pancreas, and adrenal glands are normal. There are cysts in the kidneys measuring up to 9 mm on the left. There is urothelial enhancement in the renal pelvises. There is an 11 mm sto ne in left kidney. There is diverticulosis of the colon without evidence of diverticulitis. There are no dilated loops of bowel. The appendix is normal. Pelvic floor dysfunction is noted. There are no p athologically enlarged lymph nodes. There is no free intraperitoneal fluid. There is an electrode in right S3 neural foramen. There is moderate thoracic spondylosis and mild lumbar spondylosis. IMPRESSION: 1. Bilateral pyelitis. 2. Nonobstructing left kidney stone. 3. Small sliding hiatal hernia. Reviewed, dictated and finalized at location A. SIFIED AD CLERK
[2024-09-03 15:37] VITALS: BP 135/86; PULSE 79; RESP 22; TEMP 36.8; O2SAT 100
[2024-09-03] MEDS: SODIUM CHLORIDE 0.9% IV 1,000 ML 999 ML IV CONT ×2 (16:03→18:11)
[2024-09-03] MEDS: ONDANSETRON INJ 4 MG/2 ML VIAL IV PUSH ×2 (16:04→18:18)
[2024-09-03] MEDS: KETOROLAC 30 MG/ML VIAL (*BKC) IV PUSH (16:04)
[2024-09-03 16:10] LABS: Basophils Absolute Auto 0.01 K/mm3 (0.00-0.10); Basophils Percent Auto 0.2 % (0.0-1.0); Eosinophils Absolute Auto 0.03 K/mm3 (0.02-0.50); Eosinophils Percent Auto 0.5 % (1.0-6.0); Hematocrit 41.4 % (35.0-42.0); Hemoglobin 14.1 g/dL (11.7-13.8); Immature Granulocyte Absolute 0.04 K/mm3 (0.00-0.00); Immature Granulocyte Percent A 0.7 % (0.0-0.0); Lymphocytes Absolute Auto 0.99 K/mm3 (1.10-4.50); Lymphocytes Percent Auto 17.5 % (18.0-42.0); Mean Corpuscular HGB Conc 34.1 g/dL (32-36); Mean Corpuscular Hemoglobin 29.5 pg (27.0-31.0); Mean Corpuscular Volume 86.6 fL (78.0-102.0); Mean Platelet Volume 9.4 fl (9.2-11.8); Monocytes Absolute Auto 0.66 K/mm3 (0.10-0.90); Monocytes Percent Auto 11.7 % (2.0-11.0); Neutrophils Absolute Auto 3.93 K/mm3 (1.70-7.20); Neutrophils Percent Auto 69.4 % (50.0-70.0); Platelet Count Result 295 K/mm3 (150-420); Red Blood Count 4.78 M/mm3 (4.20-5.40); Red Cell Distribution Width 13.8 % (11.6-14.4); White Blood Count 5.7 K/mm3 (4.8-10.8)
[2024-09-03 16:15] LABS: Appearance Urine Clear (Clear); Bilirubin Urine Negative (Negative); Blood Urine Negative (Negative); Glucose Urine UA Negative (Negative); Ketones Urine Negative (Negative); Nitrate Urine Negative (Negative); Protein Urine Negative (Negative); Specific Grav Ur <= 1.005 (1.010-1.020); Urobilinogen Urine 0.2 mg/dL (0.2-1.0); pH Urine 6.5 (5.0-8.0)
[2024-09-03 16:18] LABS: Add Urine Microscopic? NO; Color Urine Yellow (Yellow); Leukocyte Esterase Ur Negative LEU/UL (Negative)
[2024-09-03 16:33] LABS: Alanine Aminotransferase 32 U/L (14-59); Albumin Level 3.6 g/dL (3.4-5.0); Alkaline Phosphatase 86 U/L (46-116); Anion Gap 11 mmol/L (4-12); Aspartate Amino Transferase 24 U/L (15-37); Bilirubin,Total 0.9 mg/dL (0.00-1.00); Blood Urea Nitrogen 23 mg/dL (7-18); Calcium 9.7 mg/dL (8.5-10.1); Carbon Dioxide 28 mmol/L (21-32); Chloride 101 mmol/L (98-108); Estimated CRCL calculation 25 ml/min; Estimated Glomerular Filt Rate 40; Glucose 97 mg/dL (70-99); Lipase 38 U/L (16-77); Osmolality Calculated 293 mOsm/kg (285-295); Potassium 3.5 mmol/L (3.5-5.1); Sodium 140 mmol/L (136-145); Total Protein 7.1 g/dL (6.4-8.2)
[2024-09-03 16:38] LABS: Lactic Acid Reflex 1.5 mmol/L (0.4-2.0)
--- NOTE | 2024-09-03 17:41 | ED_ITS ---
HPI - Nausea/Vomiting/Diarrhea General Chief complaint: Nausea/Vomiting/Diarrhea Stated complaint: flue like symptoms Time Seen by Provider: 09/03/24 15:48 Related Data Home Medications ?Medication ?Instructions ?Recorded ?Confirmed ?Last Taken ?Type hydrochlorothiazide 12.5 mg tablet 12.5 mg PO DAILY 07/28/19 04/17/24 Unknown History lisinopril 20 mg tablet 20 mg PO DAILY 07/28/19 04/17/24 Unknown History omeprazole 40 mg capsule,delayed 40 mg PO DAILY 07/28/19 04/17/24 Unknown History release propranolol 20 mg tablet 20 mg PO Q12H 07/28/19 04/17/24 Unknown History simvastatin 20 mg tablet 20 mg PO DAILY 07/28/19 04/17/24 Unknown History Allergies Allergy/AdvReac Type Severity Reaction Status Date / Time morphine AdvReac Severe Headache Verified 04/17/24 08:49 PMFSH Past Medical History Medical History Arthritis Elevated lipids Hypertension Tricuspid regurgitation Surgical History Surgical History H/O cataract extraction S/P placement of nerve stimulator Bladder Family History Family History Father Bladder cancer Mother , at 97 yo Abdominal malignancy Abdominal mass Son No problems noted. Social History Social History Smoking status: Never smoker Second hand tobacco smoke exposure: Yes (none for 7 years) Alcohol intake: never Substance use: never Gender identity (if verbalized by the patient): Female Spiritual care concerns: No Agree to blood products: Yes Course Reevaluation(s) Reevaluation #1: Patient still having left lower quadrant abdominal pain hence not feeling that great still feeling nauseous. Will do a CT scan that the pelvis contrast. Date: 09/03/24 Time: 17:42 Vital Signs Vital signs: Vital Signs Temperature 98.2 F 09/03/24 15:37 Pulse Rate 79 09/03/24 15:37 Respiratory Rate 22 H 09/03/24 15:37 Blood Pressure 135/86 09/03/24 15:37 Pulse Oximetry 100 09/03/24 15:37 Oxygen Delivery Room Air 09/03/24 15:37 Temperature 98.2 F 09/03/24 15:37 Pulse Rate 79 09/03/24 15:37 Respiratory Rate 22 H 09/03/24 15:37 Blood Pressure 135/86 09/03/24 15:37 Pulse Oximetry 100 09/03/24 15:37 Oxygen Delivery Room Air 09/03/24 15:37 MDM - Nausea/Vomiting/Diarrhea Lab Data 09/03/24 16:04 09/03/24 16:04 Labs: Lab Results 09/03/24 09/03/24 09/03/24 Range/Units 15:49 15:56 16:04 WBC 5.7 (4.8-10.8) K/mm3 RBC 4.78 (4.20-5.40) M/mm3 Hgb 14.1 H (11.7-13.8) g/dL Hct 41.4 (35.0-42.0) % MCV 86.6 (78.0-102.0) fL MCH 29.5 (27.0-31.0) pg MCHC 34.1 (32-36) g/dL RDW 13.8 (11.6-14.4) % Plt Count 295 (150-420) K/mm3 MPV 9.4 (9.2-11.8) fl Immature Gran % (Auto) 0.7 H (0.0-0.0) % Neut % (Auto) 69.4 (50.0-70.0) % Lymph % (Auto) 17.5 L (18.0-42.0) % [place] % (Auto) 11.7 H (2.0-11.0) % Eos % (Auto) 0.5 L (1.0-6.0) % Baso % (Auto) 0.2 (0.0-1.0) % Lymph # (Auto) 0.99 L (1.10-4.50) K/mm3 [place] # (Auto) 0.66 (0.10-0.90) K/mm3 Eos # (Auto) 0.03 (0.02-0.50) K/mm3 Baso # (Auto) 0.01 (0.00-0.10) K/mm3 Abs Immat Gran (auto) 0.04 H (0.00-0.00) K/mm3 Absolute Neuts (auto) 3.93 (1.70-7.20) K/mm3 Absolute Nucleated RBC 0.00 (0.00-0.00) K/mm3 Nucleated RBC % 0.0 (0-0.0) % Sodium 140 (136-145) mmol/L Potassium 3.5 (3.5-5.1) mmol/L Chloride 101 (98-108) mmol/L Carbon Dioxide 28 (21-32) mmol/L Anion Gap 11 (4-12) mmol/L BUN 23 H (7-18) mg/dL Creatinine 1.29 H (0.55-1.02) mg/dL Estim Creat Clear Calc 25 ml/min Estimated GFR 40 L (59 - ) Glucose 97 (70-99) mg/dL Calculated Osmolality 293 (285-295) mOsm/kg Lactic Acid 1.5 (0.4-2.0) mmol/L Calcium 9.7 (8.5-10.1) mg/dL Total Bilirubin 0.9 (0.00-1.00) mg/dL AST 24 (15-37) U/L ALT 32 (14-59) U/L Alkaline Phosphatase 86 (46-116) U/L Total Protein 7.1 (6.4-8.2) g/dL Albumin 3.6 (3.4-5.0) g/dL Lipase 38 (16-77) U/L Urine Color Yellow (Yellow) Urine Appearance Clear (Clear) Urine pH 6.5 (5.0-8.0) Ur Specific [place] <= 1.005 L (1.010-1.020) Urine Protein Negative (Negative) Urine Glucose (UA) Negative (Negative) Urine Ketones Negative (Negative) Ur Blood (Man) Negative (Negative) Urine Nitrate Negative (Negative) Urine Bilirubin Negative (Negative) Urine Urobilinogen 0.2 (0.2-1.0) mg/dL Leukocyte Esterase Rfl Negative (Negative) LIMA/UL Discharge Plan Discharge Patient Language: Georgian Prescriptions: No Action lisinopril 20 mg Tablet 20 mg PO DAILY omeprazole 40 mg Capsule,Delayed Release(Dr/Ec) 40 mg PO DAILY simvastatin 20 mg Tablet 20 mg PO DAILY propranolol 20 mg Tablet 20 mg PO Q12H hydrochlorothiazide 12.5 mg Tablet 12.5 mg PO DAILY azithromycin 500 mg tablet 500 mg PO DAILY 3 Days Qty: 3 0RF ondansetron 4 mg tablet,disintegrating 4 mg PO Q8H PRN (Reason: nausea and vomiting) Qty: 20 0RF Follow-up/Referrals: Praveena Mcfarland MD [Primary Care Provider] -
[2024-09-03] MEDS: LOPERAMIDE HCL 2 MG CAPSULE PO (18:18)
[2024-09-03 18:26] VITALS: BP 128/80; PULSE 78; RESP 20; O2SAT 100
--- NOTE | 2024-09-03 19:10 | PC.NURSE ---
patient report received from JORGE Olvera. Patient resting on stretcher, awaiting ERP decision and plan of care. ERP notified results of CT scan are available by prisca Olvera RN. RN awaiting further orders/plan.
--- NOTE | 2024-09-03 19:40 | ED_ITS ---
HPI - Nausea/Vomiting/Diarrhea General Chief complaint: Nausea/Vomiting/Diarrhea Stated complaint: flue like symptoms Time Seen by Provider: 09/03/24 15:48 Source: patient Mode of arrival: ambulatory Limitations: no limitations History of Present Illness HPI Narrative: Patient is a 79 year old female with significant PMH that presents To date with all pain nausea vomiting and diarrhea. Patient has had the nausea vomiting diarrhea for the last 2 days now. She says she has vomited about 30 times in the last 2 days. She cannot keep down water weight and/or food. She says that she is having abdominal pain as well also has some left flank pain. She says that she is worried about having a blockage because of all the nausea and vomiting she has had this before and had a blockage in the past. She denies any fevers or any other systemic symptoms. MD elicited complaint: nausea, vomiting, diarrhea and abdominal pain Pertinent past history: bowel obstruction Onset (ago): day(s) Description of vomiting: food contents and watery Description of diarrhea: watery and semi-solid Associated nausea: Yes Associated abdominal pain: Yes Location of pain: diffuse and L flank Radiation: diffuse Pain consistency: intermittent Severity: moderate Pain scale (0-10): 5 Quality: cramping and aching Exacerbating factors: eating and vomiting Relieving factors: bowel movement and rest Context: sick contacts Associated symptoms: denies other symptoms Treatment prior to arrival: immodium Related Data Home Medications ?Medication ?Instructions ?Recorded ?Confirmed ?Last Taken ?Type omeprazole 40 mg capsule,delayed 40 mg PO DAILY 07/28/19 04/17/24 Unknown History release propranolol 20 mg tablet 20 mg PO Q12H 07/28/19 04/17/24 Unknown History lisinopril 5 mg tablet 5 mg PO DAILY 09/03/24 Unknown History simvastatin 40 mg tablet 40 mg PO QPM 09/03/24 Unknown History venlafaxine 37.5 mg 37.5 mg PO QPM 09/03/24 Unknown History capsule,extended release 24 hr Allergies Allergy/AdvReac Type Severity Reaction Status Date / Time morphine AdvReac Severe Headache Verified 09/03/24 18:27 Review of Systems 2 Review of Systems: All systems reviewed & are unremarkable except as noted in HPI and below Constitutional: Constitutional: Reports as per HPI Eyes: Eyes: Reports no additional eye complaints ENT: Reports system reviewed and no additional complaints, except as documented Cardiovascular: Cardiovascular: Reports no additional cardiovascular complaints Respiratory: Respiratory: Reports no additional respiratory complaints Gastrointestinal: Gastrointestinal: Reports as per HPI, Reports abdominal pain, Reports diarrhea, Reports nausea and Reports vomiting Genitourinary: Genitourinary: Reports no additional female genitourinary complaints Musculoskeletal: Musculoskeletal: Reports no additional musculoskeletal complaints Integumentary/Breasts: Skin/Breast: Reports system reviewed and no additional complaints, except as docu Neurologic: Reports system reviewed and no additional complaints, except as documented Psychiatric: Psychiatric: Reports no additional psychiatric complaints Endocrine: Endocrine: Reports no additional endocrine complaints Hematologic/Lymphatic: Hematologic/Lymphatic: Reports no additional hematologic/lymphatic complaints Allergic/Immunologic: Allergic/Immunologic: Reports no additional allergic/immunologic complaints [facility] Past Medical History Medical History Tricuspid regurgitation Hypertension Elevated lipids Arthritis Surgical History Surgical History S/P placement of nerve stimulator Bladder H/O cataract extraction Family History Family History Father Bladder cancer Mother , at 97 yo Abdominal malignancy Abdominal mass Son No problems noted. Social History Social History Smoking status: Never smoker Second hand tobacco smoke exposure: Yes (none for 7 years) Alcohol intake: never Substance use: never Gender identity (if verbalized by the patient): Female Spiritual care concerns: No Agree to blood products: Yes Exam 2 Const: General: diaphoretic and ill appearing Nutritional Appearance: well nourished Orientation/consciousness: patient oriented x3 HENMT: Head: normal to inspection Ears: external ears normal F gregorio/Nose/Sinus: Normal external nose present Face and sinus: normal facial exam Mouth: Yes Normal oral and palatal mucosa present Teeth and gingiva: dentition normal Eyes: Conjunctivae: conjunctivae normal Cornea: corneas normal Pupils: E qual, round and reactive pupils present EOM: EOMs intact bilaterally Neck: Neck: normal visual inspection Chest: Chest palpation & inspection: normal inspection of the chest Resp: Effort & Inspection: normal respiratory effort Auscultation: clear to auscultation bilaterally Cardio: Rate: regular rate Rhythm: regular rhythm Heart sounds: Murmur heart sound present GI: GI Palp: Yes Soft to palpation Back/Spine/Pelvis: Back: no CVA tenderness Skin: General skin exam: normal color Rashes: no rashes Wounds: no wounds Neuro: General: patient oriented x3 Cranial nerves: Yes Nystagmus not present Speech: normal speech Gait exam (Neuro): Normal gait present Extrem: General: normal to inspection Psych: Mental Status: mental status grossly normal Affect: normal affect Attitude: cooperative Course Vital Signs Vital signs: Vital Signs Temperature 98.2 F 09/03/24 15:37 Pulse Rate 79 09/03/24 15:37 Respiratory Rate 22 H 09/03/24 15:37 Blood Pressure 135/86 09/03/24 15:37 Pulse Oximetry 100 09/03/24 15:37 Oxygen Delivery Room Air 09/03/24 15:37 Temperature 98.2 F 09/03/24 15:37 Pulse Rate 78 09/03/24 18:26 Respiratory Rate 20 09/03/24 18:26 Blood Pressure 128/80 09/03/24 18:26 Pulse Oximetry 100 09/03/24 18:26 Oxygen Delivery Room Air 09/03/24 18:26 MDM - Nausea/Vomiting/Diarrhea MDM Narrative Medical decision making narrative: Patient has had nausea vomiting diarrhea for the last 3 days now. She has taken [id number] Imodium and this is up slightly she is not able to hold down food for Eliquis very well at all. She says she is on Renvela 30 times last day. She is extremely dehydrated. Will replenish fluids and give her 2 L normal saline will also do her blood work as well and if she is not feeling better after receiving Zofran and fluids will do a CT scan of the abdomen pelvis with contrast to check for a type of colitis or diverticulitis. Differential Diagnosis Differential diagnosis: Likely gastroenteritis and dehydration Medical Records Attestation: I reviewed the patient's medical records. Lab Data Attestation: I reviewed the patient's lab results. 09/03/24 16:04 09/03/24 16:04 Labs: Lab Results 09/03/24 09/03/24 09/03/24 Range/Units 15:49 15:56 16:04 WBC 5.7 (4.8-10.8) K/mm3 RBC 4.78 (4.20-5.40) M/mm3 Hgb 14.1 H (11.7-13.8) g/dL Hct 41.4 (35.0-42.0) % MCV 86.6 (78.0-102.0) fL MCH 29.5 (27.0-31.0) pg MCHC 34.1 (32-36) g/dL RDW 13.8 (11.6-14.4) % Plt Count 295 (150-420) K/mm3 MPV 9.4 (9.2-11.8) fl Immature Gran % (Auto) 0.7 H (0.0-0.0) % Neut % (Auto) 69.4 (50.0-70.0) % Lymph % (Auto) 17.5 L (18.0-42.0) % [place] % (Auto) 11.7 H (2.0-11.0) % Eos % (Auto) 0.5 L (1.0-6.0) % Baso % (Auto) 0.2 (0.0-1.0) % Lymph # (Auto) 0.99 L (1.10-4.50) K/mm3 [place] # (Auto) 0.66 (0.10-0.90) K/mm3 Eos # (Auto) 0.03 (0.02-0.50) K/mm3 Baso # (Auto) 0.01 (0.00-0.10) K/mm3 Abs Immat Gran (auto) 0.04 H (0.00-0.00) K/mm3 Absolute Neuts (auto) 3.93 (1.70-7.20) K/mm3 Absolute Nucleated RBC 0.00 (0.00-0.00) K/mm3 Nucleated RBC % 0.0 (0-0.0) % Sodium 140 (136-145) mmol/L Potassium 3.5 (3.5-5.1) mmol/L Chloride 101 (98-108) mmol/L Carbon Dioxide 28 (21-32) mmol/L Anion Gap 11 (4-12) mmol/L BUN 23 H (7-18) mg/dL Creatinine 1.29 H (0.55-1.02) mg/dL Estim Creat Clear Calc 25 ml/min Estimated GFR 40 L (59 - ) Glucose 97 (70-99) mg/dL Calculated Osmolality 293 (285-295) mOsm/kg Lactic Acid 1.5 (0.4-2.0) mmol/L Calcium 9.7 (8.5-10.1) mg/dL Total Bilirubin 0.9 (0.00-1.00) mg/dL AST 24 (15-37) U/L ALT 32 (14-59) U/L Alkaline Phosphatase 86 (46-116) U/L Total Protein 7.1 (6.4-8.2) g/dL Albumin 3.6 (3.4-5.0) g/dL Lipase 38 (16-77) U/L Urine Color Yellow (Yellow) Urine Appearance Clear (Clear) Urine pH 6.5 (5.0-8.0) Ur Specific [place] <= 1.005 L (1.010-1.020) Urine Protein Negative (Negative) Urine Glucose (UA) Negative (Negative) Urine Ketones Negative (Negative) Ur Blood (Man) Negative (Negative) Urine Nitrate Negative (Negative) Urine Bilirubin Negative (Negative) Urine Urobilinogen 0.2 (0.2-1.0) mg/dL Leukocyte Esterase Rfl Negative (Negative) LIMA/UL Imaging Data Attestation: I personally reviewed and interpreted this imaging study as follows: Discharge Plan Discharge Clinical Impression: Admitted with dehydration, Gastroenteritis, Kidney stone on left side, Diverticulitis Patient Disposition: Home, Self-Care Condition: Stable Instructions: Antibiotic Form, Kidney Stones (ED), Gastroenteritis (ED), Acute Nausea and Vomiting (ED), Abdominal Pain (ED) Additional Instructions: Take antibiotics as instructed. FOr kidney stone take flomax and toradol for pain if kidney stone does not pass in two weeks follow up with urology for possible lithotrospy. Take zofran PRN for nausea and vomiting Patient Language: Tamazight Prescriptions: New ondansetron 4 mg tablet,disintegrating 4 mg PO Q8H PRN (Reason: nausea and vomiting) Qty: 20 0RF metronidazole [Flagyl] 375 mg capsule 375 mg PO TID Qty: 21 0RF ciprofloxacin HCl 500 mg tablet 500 mg PO Q12H Qty: 20 0RF tamsulosin [Flomax] 0.4 mg capsule 0.4 mg PO DAILY Qty: 30 0RF ketorolac 10 mg tablet 10 mg PO Q8H Qty: 9 0RF Rx Instructions: maximum total duration of 5 days from all oral, intranasal, or parenteral formulations No Action omeprazole 40 mg Capsule,Delayed Release(Dr/Ec) 40 mg PO DAILY propranolol 20 mg Tablet 20 mg PO Q12H venlafaxine 37.5 mg capsule,extended release 24hr 37.5 mg PO QPM simvastatin 40 mg tablet 40 mg PO QPM lisinopril 5 mg tablet 5 mg PO DAILY ondansetron 4 mg tablet,disintegrating 4 mg PO Q8H PRN (Reason: nausea and vomiting) Qty: 20 0RF Follow-up/Referrals: Praveena Mcfarland MD [Primary Care Provider] - Time of Disposition: 20:03
--- NOTE | 2024-09-03 19:43 | PC.NURSE ---
RN at bedside with ERP Dr. Damon who spoke with patient regarding results of imaging including plan of care and medication prescriptions. Patient given detailed instructions by provider and verbalized understanding. Patient awake and alert with VSS, awaiting DC papers.
[2024-09-03 19:45] VITALS: BP 117/70; PULSE 83; RESP 18; O2SAT 100
[2024-09-03 20:24] VITALS: TEMP 36.3
== END 2024-09-03 20:26 | disposition home or self-care (01) ==
PROVIDERS: Emergency Provider Family Medicine; PCP Internal Medicine
DX: E86.0 Dehydration (principal); K52.9 Noninfective gastroenteritis and colitis, unspecified; N20.0 Calculus of kidney; K57.92 Diverticulitis of intestine, part unspecified, without perforation or abscess without bleeding; I10 Essential (primary) hypertension; Z79.899 Other long term (current) drug therapy
CPT/HCPCS: 36415; 74177; 80053; 81003; 83605; 83690; 85025; 96361; 96374; 96375; 96376; 99284; A9270; J1885; J2405; J7030; Q9967

== ENCOUNTER 2024-11-21 10:28 | Outpatient (CLI) | payer MEDICARE, SELFPAY ==
--- OUTSIDE RECORDS SUMMARY | 2024-11-21 11:55 | XMS_ITS | Encounter Summary ---
Author Organization [facility] Healthcare Address [address] [place] [address] Care Team Providers Care Education Diagnostician Name Role Phone Praveena Mcfarland MD Primary Care Provider [phone] Paul Lopez MD Unavailable [phone] Nereyda Kemp MD Unavailable [phone] Paz Mejias MD Unavailable + Nathanael VALERIO MD, Hayden Singh Unavailable Herson Elam MD Unavailable [phone] Gee Carrasco MD Unavailable [phone] Darryn Valdez MD Unavailable [phone] Cristhian Gonzalez MD Unavailable [phone] Bill Tovar MD Unavailable [phone] Encounter Details Date Type Department Care Team (Late st Contact Info) Description 04/04/2024 Telephone [facility] [address] [place] [id number] Charu Rai RN Social History Tobacco Use Types Packs/Day Years Used Date Smoking Tobacco: Never Smokeless Tobacco: Never Alcohol Use Standard Drinks/Week Comments Yes 0 (1 standard drink = 0.6 oz pur e alcohol) rare AUDIT-C Answer Date Recorded Q1: How often do you have a drink containing alcohol? Never 11/21/2023 Q2: How many drinks containi ng alcohol do you have on a typical day when you are drinking? Patient does not drink Frequency of Binge Drinking Not on file 12/2023 Personal Safety Answer Date Recorded Have you ever been in or are you currently in a harmful physical or emotional relationship or is someone making you feel afraid or unsafe? 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 Gender Identity Female 02/06/2020 12:07 PM CDT Sexual Orientation Not on file documented as of this encounter Plan of Treatment Not on file documented as of this encounter Visit Diagnoses Not on filedocumented in this encounter Care Teams Education Diagnostician Relationship Specialty Start Date End Date Praveena Mcfarland MD [address] [place] [address] PCP - General Internal Medicine 10/11/19 Paul Lopez MD [address] [place] [id number] 10/11/19 Nereyda Kemp MD [address] [facility] [place] [id number] [place] [address] Surgeon Colon and Rectal Surgery 09/07/2211/14 Paz Mejias MD [address] [place] [address] Aging Box Hand Gastroenterology 09/07/22 Hayden Huffman III, MD [address] [place] [address] Mechanical Expert Cardiology 12/14/22 Herson Elam MD [address] [place] [address] [place] [address] Surgeon Orthopedic Surgery 11/22/23 Gee Carrasco MD [address] [place] [address] [place] [address] Referring Physician Cardiology 02/29/24 Darryn Valdez MD [address] [place] [address] [place] [address] Mechanical Expert Cardiology 05/15/24 Cristhian Gonzalez MD [address] [facility] [place] [id number] [place] [address] Cardiothoracic Surgery 10/20/24 Bill Tovar MD [address] [facility] [id number] [place] [address] Surgeon Colon and Rectal Surgery 11/15/24 documented as of this encounter
--- OUTSIDE RECORDS SUMMARY | 2024-11-21 11:55 | XMS_ITS | Encounter Summary ---
Author Organization [facility] Address [address] [place] [address] Phone Care Team Providers Care Instructor Apparel Manufacture Name Role Phone Praveena Mcfarland MD Primary Care Provider [phone] Paul Lopez MD Unavailable [phone] Nereyda Kemp MD Unavailable Paz Mejias MD Unavailable + Nathanael VALERIO MD, Hayden Singh Unavailable Herson Elam MD Unavailable [phone] Gee Carrasco MD Unavailable [phone] Darryn Valdez MD Unavailable [phone] Cristhian Gonzalez MD Unavailable Bill Tovar MD Unavailable [phone] Encounter Details Date Type Department Care Team (Late st Contact Info) Description 11/12/2024 Results Follow-Up [facility] Cardiology [address] [facility] Medicine 8th [place] [address] [place] [address] Darryn Valdez MD [address] [address] Social History Tobacco Use Types Packs/Day Years Used Date Smoking Tobacco: Never Smokeless Tobacco: Never Alcohol Use Standard Drinks/Week Comments Yes 0 (1 standard drink = 0.6 oz pur e alcohol) rare AUDIT-C Answer Date Recorded Q1: How often do you have a drink containing alcohol? Never 10/16/2024 Q2: How many drinks containi ng alcohol do you have on a typical day when you are drinking? Patient does not drink Q3: How often do you have si x or more drinks on one occasion? Never 10/16/2024 Personal Safety Answer Date Recorded Have you ever been in or are you currently in a harmful physical or emotional relationship or is someone making you feel afraid or unsafe? 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 Gender Identity Female 02/06/2020 12:07 PM CDT Sexual Orientation Not on file documented as of this encounter Plan of Treatment Not on file documented as of this encounter Visit Diagnoses Not on filedocumented in this encounter Care Teams Instructor Apparel Manufacture Relationship Specialty Start Date End Date Praveena Mcfarland MD [address] [place] [address] PCP - General Internal Medicine 10/11/19 Paul Lopez MD [address] [place] [id number] 10/11/19 Nereyda Kemp MD [address] [facility] [place] [phone] [place] [address] Surgeon Colon and Rectal Surgery 09/07/2211/14 Paz Mejias MD [address] [place] [address] Religious Ritual Slaughterer Gastroenterology 09/07/22 Hayden Huffman III, MD [address] [place] [address] Frame Trimmer Cardiology 12/14/22 Herson Elam MD [address] [place] [address] [address] [place] [address] Surgeon Orthopedic Surgery 11/22/23 Gee Carrasco MD [address] [place] [address] [address] [place] [address] Referring Physician Cardiology 02/29/24 Darryn Valdez MD [address] [place] [address] [address] [place] [address] Frame Trimmer Cardiology 05/15/24 Cristhian Gonzalez MD [address] [facility] [place] [id number] [place] [address] Cardiothoracic Surgery 10/20/24 Bill Tovar MD [address] [facility] [place] [phone] [place] [address] Surgeon Colon and Rectal Surgery 11/15/24 documented as of this encounter
--- OUTSIDE RECORDS SUMMARY | 2024-11-21 11:55 | XMS_ITS | Encounter Summary ---
Author Organization [facility] Address [address] [place] [address] Phone Care Team Providers Care Curing Room Worker Name Role Phone Praveena Mcfarland MD Primary Care Provider Paul Lopez MD Unavailable [phone] Nereyda Kemp MD Unavailable Paz Mejias MD Unavailable + Nathanael VALERIO MD, Hayden Singh Unavailable Herson Elam MD Unavailable [phone] Gee Carrasco MD Unavailable [phone] Darryn Valdez MD Unavailable [phone] Cristhian Gonzalez MD Unavailable [phone] Bill Tovar MD Unavailable [phone] Reason for Visit * Reason Onset Date Comments TAVR follow up 11/14/2024 Encounter Details Date Type Department Care Team (Late st Contact Info) Description 11/14/2024 Telephone [facility] Cardiology [address] [facility] 8th [place] [address] [place] [address] Darryn Valdez MD [address] [facility] [address] [place] [address] TAVR follow up Social History Tobacco Use Types Packs/Day Years [...] on file 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:54 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 QUE FINISHER * Telephone Encounter - Ariana Isaac RN - 11/19/2024 4:07 PM CST S/w pt. She noticed new finding of mod pulm regurg on most recent echo 11/12/24. She would like to know if this from high bnp and will resolve with lasix therapy. She is not urinating a great deal northinks she has fluid build up anywhere. Also, her BP is lower now SBP ~110. She has some fatigue and lightheadedness. She finds this tolerable as of now. She is anxious to start cardiac rehab and water aerobics. Do we still rec follow up 6 months? QUE FINISHER * Telephone Encounter - Bunny Tate RMA - 11/19/2024 1:28 PM CST Spoke w/pt and informed her that the 11/26 apt was scheduled in error and pt really needs to come back in 6 months per SENIOR ANALYTIC CONSULTANT Shawanda. PT has many questions and concerns and may like to keep the 11/26 apt. Can someone please call pt? (she'd like to discuss medication and find out if she will be ok to wait until 6 months to be seen again.) QUE FINISHER * Telephone Encounter - Katie Puga - 11/14/2024 10:50 AM ANTIQUE FINISHER Spoke w/pt and she is scheduled for 11/26/24 QUE FINISHER documented in this encounter Plan of Treatment Not on file documented as of this encounter Visit Diagnoses Not on filedocumented in this encounter Care Teams Curing Room Worker Relationship Specialty Start Date End Date Praveena Mcfarland MD [address] [place] [address] PCP - General Internal Medicine 10/11/19 Paul Lopez MD [address] [address] 10/11/19 Nereyda Kemp MD [address] [facility] [phone] [place] [address] Surgeon Colon and Rectal Surgery 09/07/2211/14 Paz Mejias MD [address] [place] [address] Embedded Nurse Gastroenterology 09/07/22 Hayden Huffman III, MD [address] [place] [address] Software Support Specialist Cardiology 12/14/22 Herson Elam MD [address] [place] [address] [address] [place] [address] Surgeon Orthopedic Surgery 11/22/23 Gee Carrasco MD [address] [place] [address] [place] [address] Referring Physician Cardiology 02/29/24 Darryn Valdez MD [address] [place] [address] [place] [address] Software Support Specialist Cardiology 05/15/24 Cristhian Gonzalez MD [address] [facility] [phone] [place] [address] Cardiothoracic Surgery 10/20/24 Bill Tovar MD [address] [facility] [phone] [place] [address] Surgeon Colon and Rectal Surgery 11/15/24 documented as of this encounter
--- OUTSIDE RECORDS SUMMARY | 2024-11-21 11:55 | XMS_ITS | Clinical Summary ---
Author Organization [facility] Address [address] [place] [address] Care Team Providers Care Assistant Hall Director Name Role Phone Praveena Mcfarland MD Primary Care Provider [phone] Nereyda Kemp MD Unavailable [phone] Cristhian Gonzalez MD Unavailable [phone] Vinnie Barr MD Unavailable [phone] Allergies Active Allergy Reactions Criticality Noted Date Comments Lactose Diarrhea Low 07/26/2018 Morphine Headache Low 07/26/2018 nausea Tetanus Toxoids Other (see comment) Medium 07/26/2018 Medications propranolol 20 MG tablet Take 1 tablet (20 mg total) by mouth 2 (two) times a day. Active simvastatin 40 MG tablet Take 1 tablet (40 mg total) by mouth nightly at bedtime. Active diphenoxylate-atrop ine 2.5-0.025 MG tablet Take 2 tablets by mouth daily. As needed 1 Active omeprazole (PRILOSEC) 20 MG capsule Take 1 capsule (20 mg total) by mouth daily. 2 Active ondansetron (ZOFRAN-ODT) 4 MG disintegrating tablet as needed. 2 Active B Complex Vitamins (VITAMIN B COMPLEX OR) Take 1 tablet by mouth daily. Active Probiotic Product (PROBIOTIC ADVANCED) Cap Take 1 tablet by mouth daily. Active venlafaxine XR (EFFEXOR-XR) 37.5 MG 24 hr capsule Take 1 capsule (37.5 mg total) by mouth daily with breakfast. 4 Active fluticasone propionate (FLONASE) 50 MCG/ACT nasal spray 10/13/19 2 4 Active doxycycline hyclate (VIBRA-TABS) 100 MG tablet Take 1 tablet (100 mg total) by mouth 2 (two) times daily. 4 Active ciprofloxacin (CIPRO) 500 MG tablet Take 1 tablet (500 mg total) by mouth every 12 (twelve) hours. 4 Active lisinopril (PRINIVIL) 5 MG tabletIndications:E ssential hypertension Take 1 tablet (5 mg total) by mouth daily. 30 tablet 1 4 Active Active Problems Problem Noted Date Diagnosed Date Nonrheumatic tricuspid valve regurgitation 02/03 Mixed hyperlipidemia 06/22/2019 Essential hypertension 06/22/2019 Irritable bowel syndrome Encounters Date Type Department Care Team Description 09/27/2024 [facility] [address] [place] [address] Vinnie Barr MD Called To Cancel Office Appt. from Last 3 Months Family History Medical History Relation Comments Cancer Father Relation Status Comments Father Mother Social History Tobacco Use Types Packs/Day Years Used Date Smoking Tobacco: Never Smokeless Tobacco: Never Alcohol Use Standard Drinks/Week Comments No 0 (1 standard drink = 0.6 oz pur e alcohol) AUDIT-C Answer Date Recorded Frequency of Alcohol Consumption Never 06/22/2019 Average Number of Drinks Not on file 019 Frequency of Binge Drinking Not on file 12/2018 Comments Unknown Sex and Gender Information Value Date Recorded Sex Assigned at Not on file Legal Sex Female 3:39 AM CDT Gender Identity Not on file Sexual Orientation Not on file Last Filed Vital Signs Vital Sign Reading Time Taken Comments Blood Pressure 120/75 02/24/2024 12:33 PM CDT Pulse 72 02/24/2024 12:33 PM CDT Temperature - - Respiratory Rate 18 02/15/2024 10:46 AM CDT Oxygen Saturation 100% 02/24/2024 12:33 PM CDT Inhaled Oxygen Concentration - - Weight 63.8 kg (140 lb 9.6 oz) 02/15/2024 10:46 AM CDT Height 154.9 cm (5' 1 ) 02/15/2024 10:46 AM CDT Body Mass Index 26.57 02/15/2024 10:46 AM CDT Plan of Treatment Health Maintenance Due Date Last Done Comments Pneumococcal Vaccine: 65+ Ye ars (1 of 2 - PCV) 1953 Hepatitis C 1965 DTaP, Tdap and Td Vaccines ( 1 - Tdap) 1966 Zoster Vaccines (1 of 2) 1997 Annual Medicare Wellness Visit 01/12/2012 RSV Immunization or 60+ Years (1 - 1-dose 75+ series) 2022 COVID-19 Vaccine ( - 2023-2 5 season) 2024 Influenza Adult (#1) 2024 Dexa Scan (General) Completed 11/10/2016 Meningococcal B Vaccine Aged Out No l onger eligible based on patient's age to complete this topic Meningococcal Vaccine Aged Out No montse katherine eligible based on patient's age to complete this topic RSV Immunizations Under 20 Months Aged Out No longer eligible based on patient's age to complete this topic Insurance MEDICARE MEDICARE AETNA Advance Directives Documents on File Type Date Recorded 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 Advance Directives and Living Will 07/06/2019 10:49 AM Living Will Power of Liquefier 07/06/2019 10:48 AM Monika NarayanIfuhoahwi-FGF-hyqhv; Eb Narayan-1st alternate [facility]-other Healthcare Agents on File Name Relationship Healthcare Agent Relationship Communication Gianluca R ([facility]) Kaushikewsterling Healthcare Agent Health Care [facility] Eb Narayan Other First Altern ate Health Care Agent Care Teams Assistant Hall Director Relationship Specialty Start Date End Date Praveena Mcfarland MD [address] [place] [address] PCP - General INTERNAL MEDICINE 06/22/19 Nereyda Kemp MD COLON & RECTAL [address] [facility] [address] [place] [address] COLON/RECTAL SURGERY 12/15/22 Cristhian Gonzalez MD [address] [place] [id number] Thoracic Surgery (Cardiothoracic Vascular Surgery) 02/27/24 Vinnie Barr MD [address] [facility] [facility] [address] [place] [address] Consulting Physician CARDIOVASCULAR DISEASE 03/21/24
--- OUTSIDE RECORDS SUMMARY | 2024-11-21 11:55 | XMS_ITS | Continuity of Care Document ---
Author Organization [facility] Address [address] [place] [address] Phone Care Team Providers Care Studio Owner Name Role Phone Eb Ramos PA-C Unavailable Unavailab le Allergies, Adverse Reactions, Alerts Substance Reaction Status Criticality No Known Allergies Active No Inform ation Medications Medication Instructions Dosage Effective Dates (start - stop) Status Comments Medrol (Sourav) 4 mg tablets in a dose pack take by Oral route take as indicated Not Available - Active simvastatin 5 mg tablet take 1 tablet by oral route every day in the evening 5 MG - Active HYDROCHLOROTHIAZIDE (unknown strength) Not Available - Active propanolol (unknown strength) Not Available - Active VENLAFAXINE HCL (unknown strength) Not Available - Active METOPROLOL TARTRATE (unknown strength) Not Available - Active Voltaren 1 % topical gel apply (2G) by topical route 4 times every day to the affected area(s) - No Longer Active Procedures Procedure Date Office/outpatient visit,est, mod 2016 Physical Tx excercises each 15 min Physical Tx excercises each 15 min Ultrasound, each 15 minutes Physical Tx excercises each 15 min Ultrasound, each 15 minutes Occupational Therapy Evaluation Low Comp lexity Physical Tx excercises each 15 min Carry Current Status Carry Goal Status Postop followup visit Trigger Finger Release Tendon sheath inc ision finger Finger(s) Xray Min 2 Views Office/outpatient visit,est, mod 2016 Knee Xray 3 Views Inj/Aspirate Mjr Joint/Bursa(Shldr, Hip, Knee, Subacrom Bursa) Decadron 1 Mg Office/outpatient visit,est, mod 2015 Knee Xray 3 Views Pelvis Xray 1 Or 2 Views (Includes Judet ) Knee Xray Complete 4 Or More Views Office/outpatient visit,est, mod 2014 Inj/Aspirate Mjr Joint/Bursa(Shldr, Hip, Knee, Subacrom Bursa) UN10 Kenalog Knee Xray Complete 4 Or More Views Office/outpatient visit,est, mod 2013 Inj/Aspirate Mjr Joint/Bursa(Shldr, Hip, Knee, Subacrom Bursa) UN10 Kenalog Office/outpatient visit,est, mod 2013 X-ray exam of finger(s),2+ views 2011 Tendon sheath incision, finger Office/outpatient visit,new, mod 2010 X-ray exam of finger(s),2+ views 2010 Advance Directives Directive Yes / No Effective Date File Name No Information Encounters Encounter Description Practice Location Reason(s) For Visit Diagnoses Date Provider Providers Copied on Encounter Office/outpa tient visit,est, mod [facility], [address] [place] [address], [id number], [phone] SOA PA left ring finger (chief complaint) Trigger finger, left ring finger 7 Rachel Parson. [address] [place], [place], [id number] , [place]. tel: [phone] [facility], [address] [place] [address], [id number], [phone] [facility] 7 Katie Villavicencio. [address] [place] [address], [id number] , . tel: [phone] Referring Provider: Gibson Pineda, [address] [place] [address], [id number] . tel:[phone] [facility], [address] [place] [address], [id number], tel:[phone] [facility] Mar-1 6-201 7 Wilson Maye. [address] [place] [address], [id number] , . tel: [phone] Referring Provider: Gibson Pineda, [address] [place] [address], [address] . tel:[phone] [facility], [address] [place] [address], [id number], tel:[phone] [facility] Mar-1 4-201 7 Katie Maye. [address] [place] [address], [id number] , . tel: [phone] Referring Provider: Gibson Pineda, [address] [place] [address], [id number] . tel:[phone] [facility], [address] [place] [address], [id number], tel:[phone] [facility] Trigger finger, left ring finger Mar-0 1-201 7 Wilson Maye. [address] [place] [address], [id number] , . tel: [phone] Referring Provider: Gibson Pineda, [address] [place] [address], [address] . tel:[phone] [facility], [address] [place] [address], [id number], tel:[phone] [facility] left ring finger (chief complaint) Trigger finger, left ring finger Feb-2 3-201 7 Rachel Parson. [address] [place] [address], [id number] , [place]. tel: [phone] [facility], [address] [place] [address], [id number], tel:[phone] [facility] No Information 7 Bacilio Arreaga. [address] [place] [address], [id number] , . tel:[phone] Office/outpa tient visit,est, [facility], [address] [place] [address], [id number], tel:[phone] [facility] Finger (chief complaint) left ring finger (chief complaint) Pain in left finger(s)Trigger finger, left ring fingerTrigger finger, left ring fingerTrigger finger, left ring finger 7 Bacilio Arreaga. [address] [place] [address], [id number] , . tel:[phone] Referring Provider: Gibson Pineda, [address] [place] [address], [id number] . tel:[phone] Office/outpa tient visit,est, [facility], [address] [place] [address], [id number], tel:[phone] SOA PA right knee pain (chief complaint) Pain in right kneePrimary osteoarthritis of right knee 6 Deny Bains. [address] [place] [address], [id number] , . tel:[phone] Referring Provider: Herson Madden, [address] [place] [address], [id number] . tel:[phone] [facility], [address] [place] [address], [id number], tel:[phone] [facility] No Information 6 Deny Bains. [address] [place] [address], [id number] , . tel:[phone] Referring Provider: Herson Leung, [address] [place] [address], [address] . tel:[phone] Office/outpa tient visit,est, [facility], [address] [place] [address], [id number], [place] tel:[phone] [facility] knee (chief complaint) Pain In Lower Leg (Knee) / Patellofemoral SyndromeArthritis Knee Localized Primary (osteoarthritis) Sep- 5 Tima Elizondo. [address] [place] [address], [id number] , . tel:[phone] Referring Provider: Mikhail Akhtar, [address] [place] [address], [address] . tel:[phone] Office/outpa tient visit,est, [facility], [address] [place] [address], [id number], tel:[phone] [facility] Knee (chief complaint) Pain In Lower Leg (Knee) / Patellofemoral SyndromeOsteopeni a, Disorder Bone/Cartilage 4 Tima Elizondo. [address] [place] [address], [id number] , [place]. tel:[phone] Referring Provider: Mikhail Akhtar, [address] [place] [address], [address] . tel:[phone] Office/outpa tient visit,est, mod [facility], [address] [place] [address], [id number], tel:[phone] [facility] left hip pain (chief complaint) Pubic bone painOsteopenia, Disorder Bone/Cartilage 4 Tima Elizondo. [address] [place] [address], [id number] , [place]. tel: [phone] [facility], [address] [place] [address], [id number], [place] tel:[phone] [facility] No Information 2 Tina Meza. [address], [place], [id number] , [place]. tel: [phone] [facility], [address] [place] [address], [id number], tel:[phone] [facility] No Information 0[address] 1 Bacilio Arreaga. [address] [place], [place], [id number] , [place]. tel:[phone] Office/outpa tient visit,new, [facility], [address] [place], [place], [id number], tel:[phone] [facility] No Information 1 Iraida Cotto. [address] [place], [place], [id number] , . tel: [phone] Family History Family Member Type Diagnosis Age At Onset Problem (finding) Family history of Cance r, unknown Payers Payer name Insurance type Covered constitution party ID Authoriza tiserena(s) [place] [id number] Social History Type Description Quantity Date Captured Comments Alcohol Use Details Unknown Caffeine Use Details Unknown Tobacco Use Status No Information Smoking Status Never smoker Non-Smoking Tobacco Use Details : No Details Available : No Details Available Sex Female Vital Signs Date / Time: Height Weight BMI Pulse Rate Blood Pressure Temperature Respiratory Rate Body Surface Area Head Circumference Head Circ. Percentile Wt./Edouard. Percentile BMI percentile Pulse Ox Inhaled Ox 8:09 AM 63.00 in 61.689 kg (136.00 lbs) 24.0 9 kg/m eter (2) 77 /min 128/78 mm[Hg] Chief Complaint And Reason For Visit From encounter dated '12/23/2016 08:00'. left ring finger (chief complaint) Reason For Referral Reason For Referral No Information Plan Of Treatment Date Type Action Status Referral Ordered: Knee Xray 3 Views Bilateral ordered Future Order: Radiology Order Fi nger(s) Xray Min 2 Views ([id number]), Ordered on: Ordered Future Order: Radiology Order Kn ee Xray Both Knees Standing AP ([id number]), Ordered on: Ordered Future Order: Radiology Order Kn ee Xray 1 Or 2 Views ([id number]), Ordered on: Ordered Future Order: Radiology Order Kn ee Xray Complete 4 Or More Views ([id number]), Ordered on: Ordered Future Order: Radiology Order Pe lvis Xray 1 Or 2 Views (Includes Judet) ([id number]), Ordered on: Ordered History Of Present Illness Encounter Date Complaint History Of Prese nt Illness left ring finger left ring finger left ring finger Finger right knee pain Ms Herron is a 71 year old female who complains of right knee pain. She presents with crepitus, stiffness, decreased rom, swelling and pain on the right side. The problem is worsening. Currently the patient states that the symptoms are moderate. The pain is described as aching. The symptoms occur with activity. She rates her current pain as 7/10. Patient was under the care of Dr. Alfred in the past she is had cortisone injection with good results. He at some point did discuss viscous supplementation. knee Knee left hip pain Functional Status Date Functional Assessmen t No Information Instructions Date Instruction Additional Infor mation Injection was perfor med patient tolerated procedure well left the facility in stable condition we'll plan to see her back in 4-5 weeks for reevaluation if not better would plan for Visco supplementation. We will get her precertified over the interval period Related to Primary osteoarthritis of right knee Call for questions o r concerns rtc 3 mo rt knee after inj with Dr Vega Related to Arthritis Knee Localized Primary (osteoarthritis) Patient was educated on the diagnosis and treatment plan. Related to Arthritis Knee Localized Primary (osteoarthritis) call for questions,r tc in 6months,voltaren gel Related to Pain In Lower Leg (Knee) / Patellofemoral Syndrome activities as tolera edmar after cortisone injection, one time therapy appt Related to Pain In Lower Leg (Knee) / Patellofemoral Syndrome Patient was educated on the diagnosis and treatment plan. Related to Pain In Lower Leg (Knee) / Patellofemoral Syndrome activities as tolera edmar, rtc in 6months, nap 500mg Related to Pubic bone pain Assessments Type Assessment Date assessment Trigger finger, left ring finger Patient Care Teams Name Effective Dates (start - stop) Status Members No Information
--- OUTSIDE RECORDS SUMMARY | 2024-11-21 11:55 | XMS_ITS | Encounter Summary ---
Author Organization [facility] Address [address] [place] [address] Phone Care Team Providers Care Patient Care Name Role Phone Praveena Mcfarland MD Primary Care Provider [phone] Paul Lopez MD Unavailable [phone] Nereyda Kemp MD Unavailable Paz Mejias MD Unavailable + Nathanael VALERIO MD, Hayden Singh Unavailable Herson Elam MD Unavailable [phone] Gee Carrasco MD Unavailable [phone] Darryn Valdez MD Unavailable [phone] Cristhian Gonzalez MD Unavailable Bill Tovar MD Unavailable Encounter Details Date Type Department Care Team (Late st Contact Info) Description 11/12/2024 Results Follow-Up [facility] Cardiology [address] [facility] 8th [place] [address] [place] [address] Shawanda Maurice NP [address] [place] [address] Social History Tobacco Use Types Packs/Day Years [...] on file 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:54 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 Gender Identity Female 02/06/2020 12:07 PM CDT Sexual Orientation Not on file documented as of this encounter Plan of Treatment Not on file documented as of this encounter Visit Diagnoses Not on filedocumented in this encounter Care Teams Patient Care Relationship Specialty Start Date End Date Praveena Mcfarland MD [address] [place] [address] PCP - General Internal Medicine 10/11/19 Paul Lopez MD [address] [place] [address] 10/11/19 Nereyda Kemp MD [address] [facility] [phone] [place] [address] Surgeon Colon and Rectal Surgery 09/07/2211/14 Paz Mejias MD [address] [place] [address] Detail Maker And Fitter Gastroenterology 09/07/22 Hayden Huffman III, MD [address] [place] [address] Assistant Dean Of Students Cardiology 12/14/22 Herson Elam MD [address] [place] [address] [address] [place] [address] Surgeon Orthopedic Surgery 11/22/23 Gee Carrasco MD [address] [place] [address] [address] [place] [address] Referring Physician Cardiology 02/29/24 Darryn Valdez MD [address] [place] [address] [address] [place] [address] Assistant Dean Of Students Cardiology 05/15/24 Cristhian Gonzalez MD [address] [facility] [id number] [place] [address] Cardiothoracic Surgery 10/20/24 Bill Tovar MD [address] [facility] [phone] [place] [address] Surgeon Colon and Rectal Surgery 11/15/24 documented as of this encounter
--- OUTSIDE RECORDS SUMMARY | 2024-11-21 11:55 | XMS_ITS | Referral Summary ---
Author Organization [facility] Address [address] [place] [address] Care Team Providers Care Warp Knitter Name Role Phone Praveena Mcfarland MD Primary Care Provider [phone] Paul Lopez MD Unavailable [phone] Paz Mejias MD Unavailable + Nathanael VALERIO MD, Hayden Singh Unavailable Herson Elam MD Unavailable [phone] Gee Carrasco MD Unavailable [phone] Irasema Valdez MD Unavailable [phone] Cristhian Rodgers MD Unavailable [phone] Bill Tovar MD Unavailable [phone] Encounters Date Type Department Care Team Description 11/15/2024 3:00 PM DIRECTOR ADVERTISING Office Visit [facility] Surgery [facility] Medical Office Building [address] [place] [address] Bill Tovar MD Incontinence of feces, unspecified fecal incontinence type (Primary Dx) 11/14/2024 Telephone [facility] Cardiology [address] [facility] 8th [place] [address] [place] [address] Irasema Valdez MD TAVR follow up 11/12/2024 Results Follow-Up [facility] Cardiology [address] [place] [address] [place] [address] Irasema Valdez MD 11/12/2024 4:02 PM DIRECTOR ADVERTISING - 11/12/2024 11:59 PM DIRECTOR ADVERTISING Hospital Encounter [address] [address] S/P tricuspid valve replacement Discharge Disposition: Discharge to home or self care 11/12/2024 Telephone [facility] Cardiology [facility] Medical Office Building [address] [place] [address] Carmella Mayorga CMA 11/12/2024 4:00 PM DIRECTOR ADVERTISING Lab [facility] Endocrinology Metabolism and Lipid [address] [place] [address] [place] [address] S/P tricuspid valve replacement 11/12/2024 Results Follow-Up [facility] Cardiology [address] [place] [address] Shawanda Maurice NP 11/12/2024 2:30 PM DIRECTOR ADVERTISING Office Visit [facility] Cardiology [address] [place] [address] [place] [address] Shawanda Maurice NP 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] (Primary Dx); S/P tricuspid valve replacement; Primary hypertension; Mixed hyperlipidemia 11/12/2024 12:33 PM DIRECTOR ADVERTISING - 11/12/2024 11:59 PM DIRECTOR ADVERTISING Hospital Encounter [facility] Cardiac Diagnostic Lab [address] [address] Tricuspid regurgitation, non-Ebstein's related Discharge Disposition: Discharge to home or self care 10/30/2024 Telephone [facility] Surgery Chanel Kelley NP 10/25/2024 Telephone [facility] Cardiology [address] [place] [address] [place] [address] Irasema Valdez MD ppwk 10/23/2024 Telephone [facility] Cardiology [address] [facility] Advanced Medicine 8th [place] [address] [place] [address] Irasema Valdez MD 10/22/2024 Telephone [facility] Cardiology [address] [facility] 8th [place] [address] [place] [address] Irasema Valdez MD 10/22/2024 Telephone [facility] Internal Medicine Chanel Kelley NP 10/22/2024 Telephone [facility] Cardiology [facility] 8th [place] [address] [place] [address] Prince Campo MD 10/16/2024 4:44 PM DIRECTOR ADVERTISING - 10/20/2024 2:21 PM DIRECTOR ADVERTISING Hospital Encounter [address] [place] [address] [address] Irasema Valdez MD Osman, Ali H., MD Khan, Ali Ayub, MD Kaneko, Tsuyoshi, MD 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] (Primary Dx); Tricuspid regurgitation, non-Ebstein's related; S/P tricuspid valve replacement Discharge Disposition: Discharge to home or self care 10/18/2024 11:00 AM DIRECTOR ADVERTISING - 10/18/2024 2:30 PM DIRECTOR ADVERTISING Surgery [facility] Elect[facility]iology Lab [address] [place] [address] Irasema Valdez MD Transcatheter Tricuspid Valve Implant (TTVI/TTVR) 10/18/2024 11:07 AM DIRECTOR ADVERTISING Anesthesia Event [facility] [address] [place] [address] Chanelle Doyle MD Harkins, Cherice Lynette, NP 10/16/2024 10:30 AM DIRECTOR ADVERTISING Pre-Admission Testing [facility] [address] [place] [address] Preoperative testing (Primary Dx); Easy bruising 10/02/2024 Telephone [facility] Cardiology [address] [facility] Advanced Medicine 8th [place] [address] [place] [address] Irasema Valdez MD 09/24/2024 Telephone [facility] Cardiology [address] [facility] 8th [place] [address] [place] [address] Irasema Valdez MD procedural inquiry from Last 3 Months Allergies Active Allergy Reactions Criticality Noted Date Comments Lactose Diarrhea Low 07/26/2018 Morphine Headache,Nausea only Low 07/26/2018 Tetanus Vaccines And Toxoid Fever Medium 07/26/20 18 Medications lisinopriL (PRINIVIL,ZESTRIL) 5 mg tablet Take 1 tablet (5 mg total) by mouth every morning 05/23/20 18 Active omeprazole (PriLOSEC) 20 mg capsule Take 1 capsule (20 mg total) by mouth daily with breakfast 04/03/20 18 Active propranolol (INDERAL) 20 mg tabletIndications: hypertension Take 1 tablet (20 mg total) by mouth 2 (two) times a day 11/23/19 18 Active venlafaxine XR (EFFEXOR-XR) 37.5 mg 24 hr capsule Take 1 capsule (37.5 mg total) by mouth every morning 12/09/19 18 Active diphenoxylate-atro pine (LOMOTIL) 2.5-0.025 mg per tablet Take 2 tablets by mouth every morning 11/21/19 20 Active simvastatin (ZOCOR) 40 mg tablet Take 1 tablet (40 mg total) by mouth nightly 10/31/19 20 Active acidophilus-pectin , citrus 100 million cell-10 mg capsule Take 1 tablet by mouth every morning Active ascorbic acid (vitamin C) 1,000 mg tablet Take 1 tablet (1,000 mg total) by mouth as needed (supplement) Active ferrous sulfate 325 mg (65 mg of elemental iron) tablet Take 1 tablet (325 mg total) by mouth daily with breakfast 30 tablet 11/22/19 24 025 Active Additional Information Patient not taking.Informant: Self, Reported on 11/15/2024 UNABLE TO FINDIndications:cook pplement Take 1 each by mouth every morning Med Name: Memory and Brain supplement Active acetaminophen (TYLENOL) 500 mg tabletIndications: Pain Take 1 tablet (500 mg total) by mouth every 6 (six) hours as needed for pain Active vitamin B complex (B COMPLEX ORAL) Take 1 tablet by mouth every morning Active acetaminophen-code ine (TYLENOL with CODEINE #3) 300-30 mg per tabletIndications: Pain Take 1 tablet by mouth every 6 (six) hours as needed for pain 09/14/20 24 Active cetirizine (ZyrTEC) 5 mg tablet Take 1 tablet (5 mg total) by mouth as needed for allergies or rhinitis 07/10/20 24 Active ondansetron ODT (ZOFRAN-ODT) 4 mg disintegrating tablet Take 1 tablet (4 mg total) by mouth as needed for nausea or vomiting 09/04/20 24 Active aspirin 81 mg chewable tabletIndications: coronary artery disease Take 1 tablet (81 mg total) by mouth daily 10/21/19 25 026 Active apixaban (ELIQUIS) 5 mg tabletIndications: s/p TTVR Take 1 tablet (5 mg total) by mouth every 12 (twelve) hours 180 tablet 1 11/12/19 25 Active furosemide (LASIX) 20 mg tablet Take 0.5 tablets (10 mg total) by mouth daily 45 tablet 3 11/13/19 25 Active furosemide (LASIX) 20 mg tablet TAKE 0.5 TABLETS (10 MG TOTAL) BY MOUTH EVERY OTHER DAY 45 tablet 1 10/04/19 25 025 Discontin ued(Thera py completed ) potassium chloride ER 10 mEq CR tablet TAKE 1 TABLET/CAPSULE (10 MEQ TOTAL) BY MOUTH EVERY OTHER DAY 90 tablet 1 10/12/19 25 025 Discontin ued(Thera py completed ) apixaban (ELIQUIS) 5 mg tabletIndications: s/p TTVR Take 1 tablet (5 mg total) by mouth every 12 (twelve) hours 60 tablet 1 10/20/19 25 025 Discontin ued(Reord er) Active Problems Problem Noted Date Diagnosed Date Hyperlipidemia 10/19/2024 Assessment & Plan (10/19/2024 11:13 AM DIRECTOR ADVERTISING): - continue Simvastatin - low fat low cholesterol diet S/P tricuspid valve replacement 10/18/2024 Assessment & Plan (10/19/2024 11:09 AM DIRECTOR ADVERTISING): S/p TTVR 10/18 with Evoque Remove figure of eight sutures from LFV and RFV tomorrow AM Monitor on telemetry for any evidence of AV block CXR, TTE, EKG and labs tomorrow AM PT/OT eval tomorrow ASA 81 mg daily Start Eliquis tomorrow once sutures removed and pending results of CT Restarted propanolol for elevated HR Restart home lasix dose at discharge Tricuspid valve disorder 10/16/2024 Assessment & Plan (10/17/2024 1:57 PM DIRECTOR ADVERTISING): Patient with history of symptomatic severe tricuspid regurgitation with class 2- 3 heart failure manifested by dyspnea on exertion who was admitted for elective tricuspid valve implantation - structural cardiology team consulted and following, plan for intervention 10/18 - IV lasix 20mg and milrinone 0.125 prior to procedure - tele - cont home propranolol, lisinopril, simvastatin Dysphagia 05/11/2024 History of esophageal stricture 05/11/2024 Hypertension 05/03/2024 Assessment & Plan (10/18/2024 12:05 PM DIRECTOR ADVERTISING): Goal SBP <160 Assessment & Plan (10/17/2024 1:56 PM DIRECTOR ADVERTISING): Continue home propranolol, lisinopril Diastolic heart failure 05/03/2024 Assessment & Plan (10/18/2024 2:27 PM DIRECTOR ADVERTISING): Acute on chronic Diuresis this admission No plans to restart milrinone post-TTVR Shortness of breath 04/30/2024 Tricuspid regurgitation, non-Ebstein's related 0 02/29/2024 Assessment & Plan (10/18/2024 12:05 PM DIRECTOR ADVERTISING): TTVR 10/18 Aftercare following right knee joint replacement surgery 01/06/2024 History of colonic polyps 10/03/2020 Change in bowel habit 02/08/2020 Lactose intolerance 02/08/2020 Incontinence of feces 06/21/2018 Overview (06/21/2018): Added automatically from request for surgery [id number] Fecal incontinence 08/08/2015 Assessment & Plan (10/16/2024 9:24 PM DIRECTOR ADVERTISING): 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 status post Medtronic device stimulation - continue home Lomotil GERD (gastroesophageal reflux disease) Assessment & Plan (10/16/2024 9:23 PM DIRECTOR ADVERTISING): Continue home PPI Resolved Problems Problem Noted Date Diagnosed Date Resolved Date Primary osteoarthritis of right knee 08/03/2023 01/06/[address] of the abdomen 02/08/2020 0 05/28/2021 Social History Tobacco Use Types Packs/Day Years Used Date Smoking Tobacco: Never Smokeless Tobacco: Never Tobacco Cessation:Counseling Given: Not Answered Alcohol Use Standard Drinks/Week Comments Yes 0 [...] on file 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:54 AM DIRECTOR ADVERTISING Gender Identity Female 02/06/2020 12:07 PM CDT Sexual Orientation Not on file Last Filed Vital Signs Vital Sign Reading Time Taken Comments Blood Pressure 135/89 11/15/2024 2:43 PM DIRECTOR ADVERTISING Pulse 78 11/15/2024 2:43 PM DIRECTOR ADVERTISING Temperature 36.4 C (97.5 F) 10/20/2024 9:37 AM DIRECTOR ADVERTISING Respiratory Rate 16 10/20/2024 12:36 PM DIRECTOR ADVERTISING Oxygen Saturation 98% 11/15/2024 2:43 PM DIRECTOR ADVERTISING Inhaled Oxygen Concentration - - Weight 63.5 kg (140 lb) 11/15/2024 2:43 PM DIRECTOR ADVERTISING Height 154.9 cm (5' 1 ) 11/15/2024 2:43 PM DIRECTOR ADVERTISING Body Mass Index 26.45 11/15/2024 2:43 PM DIRECTOR ADVERTISING Plan of Treatment Not on file Medical Devices Implanted Type Area Speed Operator Device Identifier Shelf Expiration Date Model / Serial / Lot Terum[employer] Ramiro Angio-Seal Vip 6fr Closere Device [id number] - [id number] - [id number] Implanted:Qty: 1 on 05/11/2024 by Irasema Valdez MD at [facility] Collagen Right: Groin [employer] Ramiro 01/01/2025 [id number] / [id number] / [id number] Medtronic Inc Neurostimulator Generator 3058 - [id number] - [id number] Implanted:Qty: 1 on 12/17/2022 by Nereyda Kemp MD at [facility] Other - see comments Left: Buttocks Medtronic Inc 12/31/2022 3058 / [id number] / NA Description:Implant pause pe rformed prior to opening implant to sterile field Medtronic Inc Interstim 28cm Quadripolar Mri Tanbark Peeler Neurostimulator [id number] - [id number] - [id number] Implanted:Qty: 1 on 12/17/2022 by Nereyda Kemp MD at [facility] Other - see comments Right: Sacrum Medtronic Inc 2024 [id number] / NA / [id number] Description:Implant pause pe rformed prior to opening implant to sterile field [employer] Evoque 48mm Transcatheter Tricuspid Heart Valve [id number] - [id number] - [id number] Implanted:Qty: 1 on 10/18/2024 by Irasema Valdez MD at [facility] Prosthetic Valve N/A: Tricuspid Valve [employer] 10/23/2025 [id number] / [id number] / Stimulator Stimulator Left: Hip Vagus Nerve Stimulator- 3 Implanted: 3 (Quantity not on file) Vagus Nerve Stimulator Left: Hip Medtronic [facility] Closure Repair Femoral Artery Suture Mediated Perclose Prostyle 89374-54 - [id number] - [id number] Implanted:Qty: 1 on 10/18/2024 by Irasema Valdez MD at [facility] Vascular Closure Device Left: Femoral Vein [employer] 07/19/2026 17783-20 / [id number] / [id number] [employer] V[employer] System Closure Repair Femoral Artery Suture Mediated Perclose Prostyle 35966-81 - [id number] - [id number] Implanted:Qty: 1 on 10/18/2024 by Irasema Valdez MD at [facility] Vascular Closure Device Left: Femoral Vein [employer] 07/19/2026 74839-53 / [id number] / [id number] [employer] Cement Bone High Viscosity Gentamicin Radiopaque Single Dose Hemiarthroplpasty Simplex [id number] Pmma 6195-1-010 - [id number] Implanted:Qty: 1 on 11/21/2023 by Herson Elam MD at [facility] Right: Knee [employer] 12/17/2024 6195-1-010 / / [id number] [employer] Cement Bone High Viscosity Gentamicin Radiopaque Single Dose Hemiarthroplpasty Simplex [id number] Pmma 6195-1-010 - [id number] Implanted:Qty: 1 on 11/21/2023 by Herson Elam MD at [facility] Right: Knee [employer] 12/17/2024 6195-1-010 / / [id number] [employer] Inc Attune S+ Cement Fix Bearing Knee 4 Baseplate Tibial [id number] - [id number] Implanted:Qty: 1 on 11/21/2023 by Herson Elam MD at [facility] Right: Knee [employer] Inc 04/18/2033 [id number] / / [id number] Dep[employer] Inc Attune Cemented Posterior Stabilize Knee Right 5 Narrow Component [id number] - [id number] Implanted:Qty: 1 on 11/21/2023 by Herson Elam MD at [facility] Right: Knee [employer] Inc 06/18/2033 [id number] / / [id number] [employer]ed[employer] Inc Attune 35mm Cemented Medialize Knee Dome Patellar Aox Sterile [id number] - [id number] Implanted:Qty: 1 on 11/21/2023 by Herson Elam MD at [facility] Right: Knee [employer] Inc 04/18/2028 [id number] / / [id number] [employer]ed[employer] Inc Attune 6mm Posterior Stabilize Fix Bearing Knee 5 Insert Tibial [id number] - [id number] Implanted:Qty: 1 on 11/21/2023 by Herson Elam MD at [facility] Right: Knee [employer] Inc 05/19/2028 [id number] / / [id number] Explanted Type Area Speed Operator Device Identifier Shelf Expiration Date Model / Serial / Lot Medtronic Neuro 3889-28 Interstim 28cm Quadripolar Lead Neurostimulator - [id number] Implanted:Qty: 1 on 08/04/2018 by Nereyda Kemp MD at [facility] Explanted:Qty: 1 on 12/17/[address] [facility] N/A: Back Medtronic Neuro 04/27/2022 3889-28 / / [id number] Medtronic Neuro 3058 Interstim Ii 2inx1.7in 4 Electrode [employer] Instructor Sacral Nerve - [id number] Implanted:Qty: 1 on 08/17/2018 by Nereyda Kemp MD at [facility] Explanted:Qty: 1 on 12/17/2022 by Nereyda Kemp MD at [facility] Medtronic Neuro 11/16/2019 3058 / / Description:Explant disposed of in biohazard waste. Procedures Procedure Name Priority Date/Time Associated Diagnosis Comments PRO B-TYPE NATRIURETIC PEPTIDE Routine 11/12/2024 4:02 PM DIRECTOR ADVERTISING S/P tricuspid valve replacement BASIC METABOLIC PANEL Routine 11/12/2024 4:02 PM DIRECTOR ADVERTISING S/P tricuspid valve replacement CBC WITHOUT DIFFERENTIAL Routine 11/12/2024 4:02 PM DIRECTOR ADVERTISING S/P tricuspid valve replacement ECG 12-LEAD Routine 11/12/2024 2:44 PM DIRECTOR ADVERTISING 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] S/P tricuspid valve replacement TRANSTHORACIC ECHO (TTE) COMPLETE W DOPPLER/CF WO CONTRAST Routine 11/12/2024 2:04 PM DIRECTOR ADVERTISING Tricuspid regurgitation, non-Ebstein's related ECG 12-LEAD Routine 10/20/2024 5:54 AM DIRECTOR ADVERTISING EGFR Routine 10/20/2024 4:35 AM DIRECTOR ADVERTISING DIFFERENTIAL AUTO Routine 10/20/2024 4:3 5 AM DIRECTOR ADVERTISING BASIC METABOLIC PANEL Routine 10/20/2024 4:35 AM DIRECTOR ADVERTISING CBC WITH AUTO DIFFERENTIAL Routine 10/20/2024 4:35 AM DIRECTOR ADVERTISING PHOSPHORUS Routine 10/20/2024 4:35 AM DIRECTOR ADVERTISING MAGNESIUM Routine 10/20/2024 4:35 AM DIRECTOR ADVERTISING TRANSTHORACIC ECHO (TTE) COMPLETE W DOPPLER/CF W CONTRAST Pending Discharge 10/19/2024 5:49 PM DIRECTOR ADVERTISING HEPATIC FUNCTION PANEL STAT 10/19/2024 11:50 AM DIRECTOR ADVERTISING PROTIME-INR STAT 10/19/2024 11:50 AM DIRECTOR ADVERTISING XR CHEST PA LATERAL 2 VIEWS IP Routine 10/19/2024 8:19 AM DIRECTOR ADVERTISING ECG 12-LEAD Routine 10/19/2024 4:24 AM DIRECTOR ADVERTISING EGFR Routine 10/18/2024 11:26 PM DIRECTOR ADVERTISING DIFFERENTIAL AUTO Routine 10/18/2024 11:26 PM DIRECTOR ADVERTISING BASIC METABOLIC PANEL Routine 10/18/2024 11:26 PM DIRECTOR ADVERTISING CBC WITH AUTO DIFFERENTIAL Routine 10/18/2024 11:26 PM DIRECTOR ADVERTISING PHOSPHORUS Routine 10/18/2024 11:26 PM DIRECTOR ADVERTISING MAGNESIUM Routine 10/18/2024 11:26 PM DIRECTOR ADVERTISING XR CHEST 1 VIEW ED Urgent/IP Urgent 10/18/2024 2:22 PM DIRECTOR ADVERTISING EGFR Routine 10/18/2024 2:10 PM DIRECTOR ADVERTISING DIFFERENTIAL AUTO Routine 10/18/2024 2:1 0 PM DIRECTOR ADVERTISING APTT Routine 10/18/2024 2:10 PM DIRECTOR ADVERTISING PROTIME-INR Routine 10/18/2024 2:10 PM DIRECTOR ADVERTISING CBC WITH AUTO DIFFERENTIAL Routine 10/18/2024 2:10 PM DIRECTOR ADVERTISING COMPREHENSIVE METABOLIC PANEL Routine 10/18/2024 2:10 PM DIRECTOR ADVERTISING MAGNESIUM Routine 10/18/2024 2:10 PM DIRECTOR ADVERTISING ECG 12-LEAD STAT 10/18/2024 1:57 PM DIRECTOR ADVERTISING INTRACARDIAC ECHOCARDIOGRAM Routine 10/18/2024 1:40 PM DIRECTOR ADVERTISING Tricuspid regurgitation, non-Ebstein's related TRANSCATHETER TRICUSPID VALVE IMPLANT Routine 10/18/2024 1:40 PM DIRECTOR ADVERTISING Tricuspid regurgitation, non-Ebstein's related NADINE GUIDANCE DURING CARDIAC STRUCTURAL INTVN [id number] Routine 10/18/2024 1:30 PM DIRECTOR ADVERTISING POCT ACTIVATED CLOTTING TIME, LOW RANGE Routine 10/18/2024 12:52 PM DIRECTOR ADVERTISING POCT ACTIVATED CLOTTING TIME, LOW RANGE Routine 10/18/2024 12:27 PM DIRECTOR ADVERTISING POCT ACTIVATED CLOTTING TIME, LOW RANGE Routine 10/18/2024 12:19 PM DIRECTOR ADVERTISING [place] AN PROCEDURE PLACEHOLDER Routine 10/18/2024 11:32 AM DIRECTOR ADVERTISING [place] AN PROCEDURE PLACEHOLDER Routine 10/18/2024 11:32 AM DIRECTOR ADVERTISING [place] AN ELECTIVE ENDOTRACHEAL AIRWAY Routine 10/18/2024 11:32 AM DIRECTOR ADVERTISING POCT GLUCOSE DEVICE Routine 10/18/2024 10:42 AM DIRECTOR ADVERTISING B CHECK SAMPLE STAT 10/18/2024 10:40 AM DIRECTOR ADVERTISING PREPARE RBC Timed 10/18/2024 10:25 AM DIRECTOR ADVERTISING EGFR Routine 10/18/2024 3:48 AM DIRECTOR ADVERTISING DIFFERENTIAL AUTO Routine 10/18/2024 3:4 8 AM DIRECTOR ADVERTISING PROTIME-INR Routine 10/18/2024 3:48 AM DIRECTOR ADVERTISING CBC WITH AUTO DIFFERENTIAL Routine 10/18/2024 3:48 AM DIRECTOR ADVERTISING BASIC METABOLIC PANEL Routine 10/18/2024 3:48 AM DIRECTOR ADVERTISING MAGNESIUM Routine 10/18/2024 3:48 AM DIRECTOR ADVERTISING PHOSPHORUS Routine 10/18/2024 3:48 AM DIRECTOR ADVERTISING EGFR Routine 10/17/2024 4:08 AM DIRECTOR ADVERTISING CBC WITHOUT DIFFERENTIAL Routine 10/17/2024 4:08 AM DIRECTOR ADVERTISING COMPREHENSIVE METABOLIC PANEL Routine 10/17/2024 4:08 AM DIRECTOR ADVERTISING EGFR Routine 10/16/2024 12:11 PM DIRECTOR ADVERTISING Preoperative testing URINALYSIS, MICROSCOPIC ONLY Routine 10/16/2024 12:11 PM DIRECTOR ADVERTISING Preoperative testing DIFFERENTIAL AUTO Routine 10/16/2024 12:11 PM DIRECTOR ADVERTISING Preoperative testing CBC WITH AUTO DIFFERENTIAL Routine 10/16/2024 12:11 PM DIRECTOR ADVERTISING Preoperative testing COMPREHENSIVE METABOLIC PANEL Routine 10/16/2024 12:11 PM DIRECTOR ADVERTISING Preoperative testing TYPE AND SCREEN 14 DAY Routine 10/16/2024 12:11 PM DIRECTOR ADVERTISING Preoperative testing PROTIME-INR Routine 10/16/2024 12:11 PM DIRECTOR ADVERTISING Preoperative testing Easy bruising CPAP APTT ALGORITHM Routine 10/16/2024 12:11 PM DIRECTOR ADVERTISING Preoperative testing URINALYSIS AND REFLEX TO MICROSCOPIC AND CULTURE Routine 10/16/2024 12:11 PM DIRECTOR ADVERTISING Preoperative testing ECG 12-LEAD Routine 10/16/2024 11:26 AM DIRECTOR ADVERTISING Preoperative testing COLONOSCOPY 11/12/2020 12:00 PM DIRECTOR ADVERTISING from Last 3 Months or Most Recently Relevant to Health Maintenance Results * (ABNORMAL) Pro B-type natriuretic peptide (11/12/2024 4:02 PM DIRECTOR ADVERTISING) NT-proBNP 1,758(H) <=450 pg/mL Comment: Interpretive Comments: A. Dyspnea in Acute Care Setting All Ages: < 300 pg/ml, acute heart failure unlikely. < 50 yrs: 300 - 450 pg/ml, further investigation warranted. > 450 pg/ml, acute heart failure likely. 50 - 74 yrs: 300 - 900 pg/ml, further investigation warranted. > 900 pg/ml, acute heart failure likely . > or = 75 yrs: 450 - 1800 pg/ml, further investigation warranted. > 1800 pg/ml, acute heart failure likely. B. Non-acute Setting < 75 yrs < 125 pg/ml, rules out heart failure. > or = 125 pg/ml, further investigation warranted. > or = 75 yrs < 450 pg/ml, rules out heart failure. > or = 450 pg/ml, further investigation warranted. - Knowledge of each individual patient's NT-proBNP range may be more useful than using similar cut-points for every patient. Please note that marked elevations in NT-proBNP levels may be observed in state other than Left Ventricular Congestive Failure, including: acute coronary syndromes, right heart strain/failure (including pulmonary embolism and cor pulmonale), critical illness, renal failure, as well as advanced age. - References: 1. Lisa DIEHL et.al. Eur Heart J. 2006:27:330-337. 2. Carleen RW, Amy FRAIRE. J. AM Fariba Cardiol: Cardiovasc Imag. 2009;2: 216- 225. Interpretive Data Last Revised Date: 2018. Blood 11/12/2024 4:02 PM DIRECTOR ADVERTISING 11/12/2024 6:34 PM DIRECTOR ADVERTISING Shawanda Maurice BUSINESS INTELLIGENCE DEVELOPER LAB BLOOD ORDERABLES Final R esult Performing Organization Address City/State/[place] Co de Phone Number [facility] [place] [address] * (ABNORMAL) CBC without differential (11/12/2024 4:02 PM DIRECTOR ADVERTISING) White Blood Count 4.8 3.6 - 11.2 K/uL [facility] RBC 3.63 3.63 - 4.92 M/uL [facility] Hemoglobin 11.2(L) 11.9 - 15.5 g/dL [facility] Hematocrit 33.0(L) 36.1 - 44.3 % [facility] MCV 91.0 80.0 - 97.6 fL [facility] MCH 30.7 26.7 - 33.7 pg [facility] MCHC 33.8 32.7 - 35.5 g/dL [facility] RBC Dist Width 14.5 12.3 - 17.0 % [facility] Platelet Count 235 140 - 440 K/uL [facility] MPV 7.7 6.8 - 10.4 fL [facility] Blood 11/12/2024 4:02 PM DIRECTOR ADVERTISING 11/12/2024 4:27 PM DIRECTOR ADVERTISING Shawanda Maurice NP LAB BLOOD ORDERABLES Final R esult Performing Organization Address City/[facility]/ZIP Co de Phone Number [facility] * (ABNORMAL) Basic metabolic panel (11/12/2024 4:02 PM DIRECTOR ADVERTISING) Glucose 105(H) 64 - 99 mg/dL [facility] Comment: NONFASTING GLUCOSE RANGE = 64-199 mg/dL FASTING GLUCOSE 64 - 99 = NORMAL FASTING GLUCOSE 100 - 125 = IMPAIRED FASTING GLUCOSE FASTING GLUCOSE >=126 = PROVISIONAL DIAGNOSIS OF DIABETES Potassium 3.8 3.3 - 5.1 mmol/L [facility] Creatinine 0.91 0.60 - 1.10 mg/dL [facility] BUN 13 7 - 23 mg/dL [facility] Sodium 140 135 - 145 mmol/L [facility] Chloride 102 95 - 107 mmol/L [facility] CO2 Content 27 21 - 29 mmol/L [facility] Calcium 10.0 8.6 - 10.3 mg/dL [facility] eGFR 65.0 >60.0 mL/min/1.7 3 m2 [facility] Blood 11/12/2024 4:02 PM DIRECTOR ADVERTISING 11/12/2024 4:27 PM DIRECTOR ADVERTISING Shawanda Maurice NP LAB BLOOD ORDERABLES Final R esult Performing Organization Address City/[facility]/ZIP Co de Phone Number [facility] * ECG 12 lead (11/12/2024 2:44 PM DIRECTOR ADVERTISING) Shawanda Maurice BUSINESS INTELLIGENCE DEVELOPER ECG ORDERABLES Edited Resul t - Final * TRANSTHORACIC ECHO (TTE) COMPLETE W DOPPLER/CF WO CONTRAST (11/12/2024 2:04 PM DIRECTOR ADVERTISING) LV EF 60-65 % CONS SCIMAGE Anatomical Region Laterality Modality Ultrasound 11/12/2024 12:5 9 PM DIRECTOR ADVERTISING Narrative 11/12/2024 2:46 PM DIRECTOR ADVERTISING [facility] [place] [place] [address] Transthoracic Echocardiographic Report Patient Name: STACY HERRON : 1945 (79y 9m) Gender: F Study Date: 11/12/2024 12:59:37 PM Ht(Inch): 61 Wt(Lb): 136.02 BSA: 1.63 Medical Device Assembler: Shy Kellogg RDCS Location: [facility] Order Provider: IRASEMA VALDEZ Heart Rate: 67 BMI: 25.7 BP: 136 / 84 Quality: The study images were of technically good quality. Ref Provider: IRASEMA VALDEZ PROCEDURES: Echocardiographic Report: [id number], [id number]) Transthoracic complete echo with strain imaging, 2D, spectral and tissue Doppler, color flow Doppler, M-mode. Additional Procedures: Myocardial strain imaging was performed. 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 FINDINGS: Left Ventricle: Normal left ventricular size based on volume index. Normal LV wall thickness. Normal left ventricular systolic function. The Ejection Fraction is visually estimated to be 60-65 %. Left ventricular diastolic parameters are consistent with normal diastolic function. The average global longitudinal strain rate is normal. The LV global strain is: -19.0 %. Right Ventricle: Normal right ventricular size. RV function appears grossly normal. Left Atrium: The left atrium is normal in size. Right Atrium: The right atrium is normal in size. Mitral Valve: Mild mitral annular calcification. There is mild mitral valve regurgitation. Aortic Valve: Trileaflet aortic valve. No aortic regurgitation seen. No aortic valve stenosis. Tricuspid Valve: There is mild tricuspid regurgitation. The estimated right ventricular systolic pressure is 25 mmHg. There is a 48mm Evoque bioprosthetic valve in the tricuspid position. The valve appears well seated with normal leaflet motion. The tricuspid prosthesis demonstrates a normal transvalvular gradient for valve type and size. The mean transvalvular gradient is 1.64 mmHg. Pulmonic Valve: The pulmonic valve demonstrates normal leaflet structure. There is moderate pulmonic regurgitation. Pericardium: No pericardial effusion. Aorta: The aortic root is normal in size. The aortic root is normal in size when indexed. The ascending aorta is normal in size when indexed. IVC: IVC is normal in size. The IVC (inferior vena cava) was <2.1 cm and collapsibility >50%. The estimated RA pressure is 3 mmHg. CONCLUSIONS: 1. Normal LV wall thickness. Normal left ventricular systolic function. The Ejection Fraction is visually estimated to be 60-65 %. Left ventricular diastolic parameters are consistent with normal diastolic function. The average global longitudinal strain rate is normal. 2. Normal right ventricular size. Grossly normal function (TAPSE and S' dificult to asses in setting of TTVR). 3. Mild mitral annular calcification. There is mild mitral valve regurgitation. 4. Trileaflet aortic valve. No aortic regurgitation seen. No aortic valve stenosis. 5. There is mild tricuspid regurgitation. The estimated right ventricular systolic pressure is 25 mmHg. There is a 48mm Evoque bioprosthetic valve in the tricuspid position. The valve appears well seated with normal leaflet motion. The tricuspid prosthesis demonstrates a normal transvalvular gradient for valve type and size. The mean transvalvular gradient is 1.64 mmHg. 6. IVC is normal in size. The IVC (inferior vena cava) was <2.1 cm and collapsibility >50%. The estimated RA pressure is 3 mmHg. MEASUREMENTS: 2D/MM Value Range Doppler Value Range LVIDd 2D 4.06 cm [ 3.80 - 5.20 ] AV Peak Ck 1.33 m/s [ 1.00 - 1.70 ] LVIDs 2D 2.39 cm [ 2.20 - 3.50 ] AV Mean PG 4.14 mmHg IVSd 2D 1.01 cm [ 0.60 - 0.90 ] AV VTI 29.37 cm LVPWd 2D 0.68 cm [ 0.60 - 0.90 ] LVOT VTI 26.71 cm LV Thickness Ratio 1.49 LVOT Diam 1.98 cm LV Mass Index 2D 64.56 g/m2 LVOT/AV VTI 0.91 - Dimensionless index (DVI) RWT 0.33 MV E Peak Ck 0.63 m/s [ 0.60 - 1.30 ] EDV Mod BP 65.33 ml [ 46.00 - 106.00 ] MV A Peak Ck 0.70 m/s [ 1.00 - 1.20 ] LV EDV Index 40.08 ml/m2 MV E/A 0.90 ratio [ 0.80 - 1.50 ] ESV Mod BP 24.77 ml [ 14.00 - 42.00 ] Med E` Ck 4.65 cm/sec [ 8.00 - 15.00 ] EF Mod BP 62 % [ 54 - 74 ] Lat E` Ck 8.99 cm/sec [ 10.00 - 15.00 ] Visually Estimated EF 60-65 % Average E/E` 9.24 LV GLS -19.0 % [ -18.0 - -16.0 ] TV Peak Ck 1.10 m/s [ 0.30 - 0.70 ] LA Volume BP 43.06 ml TV Peak PG 4.84 LA Volume Index 26.42 ml/m2 [ 16.00 - 34.00 ] TV Mean PG 1.64 mmHg RV Base Dimen 2D 3.4 cm [ 2.5 - 4.2 ] RV S` 12.16 cm/sec TAPSE 1.53 cm [ 1.71 - 5.00 ] TR Peak Ck 2.32 m/s [ 1.00 - 2.80 ] RA Volume Index 16.58 ml/m2 TR Peak PG 21.5 IVC Diam 1.40 cm RA Pressure 3.00 mmHg AoR Diam 2D 3.01 cm [ 2.70 - 3.70 ] RVSP 24.50 Asc Ao Diam 2D 2.98 cm - COMPARISONS: Compared to prior study completed on 10-19-2024. No change compared to prior study. ATTESTATION: I have reviewed and interpreted the pertinent images and measurements of this study. I attest to the conclusions in the final report that is provided above. DISCLAIMER: The study images and the final report will be retained in the patient chart by the Echo Laboratory for the legally required time period. This chart constitutes the legal record of any testing performed. Electronically Signed By: Rom Breen M.D. 11/12/2024 2:46:23 PM DIRECTOR ADVERTISING Electronically Signed By: Rom Breen M.D. 11/12/2024 2:46:23 PM DIRECTOR ADVERTISING Procedure Note Rom Breen MD - 11/12/2024 [facility] [place] [place] [address] Transthoracic Echocardiographic Report Patient Name: STACY HERRON : 1945 (79y 9m) Gender: F Study Date: 11/12/2024 12:59:37 PM Ht(Inch): 61 Wt(Lb): 136.02 BSA: 1.63 Medical Device Assembler: Shy Kellogg RDCS Location: [facility] Order Provider:IRASEMA VALDEZ Heart Rate: 67 BMI: 25.7 BP: 136 / 84 Quality: The study images were oftechnically good quality. Ref Provider: IRASEMA VALDEZ PROCEDURES: Echocardiographic Report: ([id number]) Transthoracic complete echo withstrain imaging, 2D, spectral and tissue Doppler, color flow Doppler, M-mode. Additional Procedures: Myocardial strain imaging was performed. 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 FINDINGS: Left Ventricle: Normal left ventricular size based on volume index. NormalLV wall thickness. Normal left ventricular systolic function. The EjectionFraction is visually estimated to be 60-65 %. Left ventricular diastolic parameters areconsistent with normal diastolic function. The average global longitudinal strain rate is normal.The LV global strain is: -19.0 %. Right Ventricle: Normal right ventricular size. RV function appearsgrossly normal. Left Atrium: The left atrium is normal in size. Right Atrium: The right atrium is normal in size. Mitral Valve: Mild mitral annular calcification. There is mild mitralvalve regurgitation. Aortic Valve: Trileaflet aortic valve. No aortic regurgitation seen. Noaortic valve stenosis. Tricuspid Valve: There is mild tricuspid regurgitation. The estimatedright ventricular systolic pressure is 25 mmHg. There is a 48mm Evoque bioprosthetic valvein the tricuspid position. The valve appears well seated with normal leaflet motion. Thetricuspid prosthesis demonstrates a normal transvalvular gradient for valve type andsize. The mean transvalvular gradient is 1.64 mmHg. Pulmonic Valve: The pulmonic valve demonstrates normal leaflet structure.There is moderate pulmonic regurgitation. Pericardium: No pericardial effusion. Aorta: The aortic root is normal in size. The aortic root is normal insize when indexed. The ascending aorta is normal in size when indexed. IVC: IVC is normal in size. The IVC (inferior vena cava) was <2.1 cm andcollapsibility >50%. The estimated RA pressure is 3 mmHg. CONCLUSIONS: 1. Normal LV wall thickness. Normal left ventricular systolic function.The Ejection Fraction is visually estimated to be 60-65 %. Left ventricular diastolicparameters are consistent with normal diastolic function. The average global longitudinalstrain rate is normal. 2. Normal right ventricular size. Grossly normal function (TAPSE and S'dificult to asses in setting of TTVR). 3. Mild mitral annular calcification. There is mild mitral valveregurgitation. 4. Trileaflet aortic valve. No aortic regurgitation seen. No aortic valvestenosis. 5. There is mild tricuspid regurgitation. The estimated right ventricularsystolic pressure is 25 mmHg. There is a 48mm Evoque bioprosthetic valve in thetricuspid position. The valve appears well seated with normal leaflet motion. Thetricuspid prosthesis demonstrates a normal transvalvular gradient for valve type andsize. The mean transvalvular gradient is 1.64 mmHg. 6. IVC is normal in size. The IVC (inferior vena cava) was <2.1 cm andcollapsibility >50%. The estimated RA pressure is 3 mmHg. MEASUREMENTS: 2D/MM Value Range DopplerValue Range LVIDd 2D 4.06 cm [ 3.80 - 5.20 ] AV Peak Vel1.33 m/s [ 1.00 - 1.70 ] LVIDs 2D 2.39 cm [ 2.20 - 3.50 ] AV Mean PG4.14 mmHg IVSd 2D 1.01 cm [ 0.60 - 0.90 ] AV VTI29.37 cm LVPWd 2D 0.68 cm [ 0.60 - 0.90 ] LVOT VTI26.71 cm LV Thickness Ratio 1.49 LVOT Diam1.98 cm LV Mass Index 2D 64.56 g/m2 LVOT/AV VTI0.91 - Dimensionless index (DVI) RWT 0.33 MV E PeakVel 0.63 m/s [ 0.60 - 1.30 ] EDV Mod BP 65.33 ml [ 46.00 - 106.00 ] MV A PeakVel 0.70 m/s [ 1.00 - 1.20 ] LV EDV Index 40.08 ml/m2 MV E/A0.90 ratio [ 0.80 - 1.50 ] ESV Mod BP 24.77 ml [ 14.00 - 42.00 ] Med E` Vel4.65 cm/sec [ 8.00 - 15.00 ] EF Mod BP 62 % [ 54 - 74 ] Lat E` Vel8.99 cm/sec [ 10.00 - 15.00 ] Visually Estimated EF 60-65 % Average E/E`9.24 LV GLS -19.0 % [ -18.0 - -16.0 ] TV Peak Vel1.10 m/s [ 0.30 - 0.70 ] LA Volume BP 43.06 ml TV Peak PG4.84 LA Volume Index 26.42 ml/m2 [ 16.00 - 34.00 ] TV Mean PG1.64 mmHg RV Base Dimen 2D 3.4 cm [ 2.5 - 4.2 ] RV S`12.16 cm/sec TAPSE 1.53 cm [ 1.71 - 5.00 ] TR Peak Vel2.32 m/s [ 1.00 - 2.80 ] RA Volume Index 16.58 ml/m2 TR Peak PG21.5 IVC Diam 1.40 cm RA Pressure3.00 mmHg AoR Diam 2D 3.01 cm [ 2.70 - 3.70 ] RVSP24.50 Asc Ao Diam 2D2.98 cm - COMPARISONS: Compared to prior study completed on 10-19-2024. No change compared [facility] study. ATTESTATION: I have reviewed and interpreted the pertinent images and measurements ofthis study. I attest to the conclusions in the final report that is provided above. DISCLAIMER: The study images and the final report will be retained in the patientchart by the Echo Laboratory for the legally required time period. This chart constitutesthe legal record of any testing performed. Electronically Signed By: Rom Breen M.D. 11/12/2024 2:46:23 PM DIRECTOR ADVERTISING Electronically Signed By: Rom Breen M.D. 11/12/2024 2:46:23 PM DIRECTOR ADVERTISING Irasema Valdez MD CV ECHO PROCEDURES Final Result * ECG 12 lead (10/20/2024 5:54 AM DIRECTOR ADVERTISING) Pathologist [facility] Ventricular Rate EKG/Min 103 BPM [facility] Atrial Rate 103 BPM [facility] MN-Interval (MSEC) 154 ms [facility] QRS-Interval (MSEC) 112 ms [facility] QT-Interval (MSEC) 352 ms [facility] QTc 461 ms [facility] P [place] 49 degrees [facility] R [place] 49 degrees [facility] T [place] -25 degrees [facility] Diagnosis Sinus tachycardia Incomplete right bundle branch block ST & T wave abnormality, consider inferior ischemia ST & T wave abnormality, consider anterolateral ischemia Abnormal ECG Confirmed by Deborah Stacy MD ([id number]) on 10/22/2024 6:39:54 PM [facility] 10/20/2024 5:54 AM DIRECTOR ADVERTISING 10/22/2024 6:39 PM DIRECTOR ADVERTISING us Chanel Kelley BUSINESS INTELLIGENCE DEVELOPER ECG ORDERABLES Final Resul t [facility] * eGFR (10/20/2024 4:35 AM DIRECTOR ADVERTISING) eGFR 69 >=60 mL/min/1. 73 m2 Comment: Interpretive Data Reference Interval Normal >/= 90 mL/min/1.73m2 Mildly decreased* 60 - 89 mL/min/1.73m2 Mildly to moderately decreased 45 - 59 mL/min/1.73m2 Moderately to severely decreased 30 - 44 mL/min/1.73m2 Severely decreased 15 - 29 mL/min/1.73m2 Kidney Failure < 15 mL/min/1.73m2 *Relative to young adult level Estimated glomerular filtration rate is determined by the 2020 CKD-EPI equation recommended by the National Kidney Foundation (A Unifying Approach to GFR Estimation: Recommendations of the NKF-ASK Task Force on Reassessing the Inclusion of Race in Diagnosing Kidney Disease, JASN 2020). The CKD-EPI equation should not be used for patients with unstable renal function and has not been validated in children and those over 70. Current interpretive data was last reviewed 2021. Blood 10/20/2024 4:35 AM DIRECTOR ADVERTISING 10/20/2024 5:15 AM DIRECTOR ADVERTISING us Terri Snoi BUSINESS INTELLIGENCE DEVELOPER LAB BLOOD ORDERABLES Final Result [facility] Department [place] [address] * (ABNORMAL) Differential, auto (10/20/2024 4:35 AM DIRECTOR ADVERTISING) Neutrophil abs 7.6(H) 1.5 - 6.5 K/cumm Imm gran abs 0.0 0.0 - 0.1 K/cumm [facility] Lymphocyte abs 1.1 0.8 - 3.3 K/cumm [facility] Monocyte abs 0.9(H) 0.2 - 0.8 K/cumm [facility] Eosinophil abs 0.0 0.0 - 0.5 K/cumm [facility] Basophil abs 0.0 0.0 - 0.1 K/cumm [facility] Neutrophil pct 79.0 % [facility] Comment: Interpretive Data Percent cell count reference ranges are not reported, since discordance with absolute values may lead to misinterpretation of CBC data. Current Interpretive Data was last revised on 2017. Imm gran pct 0.4 % [facility] Comment: Interpretive Data Percent cell count reference ranges are not reported, since discordance with absolute values may lead to misinterpretation of CBC data. Current Interpretive Data was last revised on 2017. Lymphocyte pct 10.8 % [facility] Comment: Interpretive Data Percent cell count reference ranges are not reported, since discordance with absolute values may lead to misinterpretation of CBC data. Current Interpretive Data was last revised on 2017. Monocyte pct 9.4 % [facility] Comment: Interpretive Data Percent cell count reference ranges are not reported, since discordance with absolute values may lead to misinterpretation of CBC data. Current Interpretive Data was last revised on 2017. Eosinophil pct 0.2 % [facility] Comment: Interpretive Data Percent cell count reference ranges are not reported, since discordance with absolute values may lead to misinterpretation of CBC data. Current Interpretive Data was last revised on 2017. Basophil pct 0.2 % [facility] Comment: Interpretive Data Percent cell count reference ranges are not reported, since discordance with absolute values may lead to misinterpretation of CBC data. Current Interpretive Data was last revised on 2017. Blood 10/20/2024 4:35 AM DIRECTOR ADVERTISING 10/20/2024 5:15 AM DIRECTOR ADVERTISING us Terri Soni BUSINESS INTELLIGENCE DEVELOPER LAB BLOOD ORDERABLES Final Result [facility] [place] [address] * (ABNORMAL) CBC with auto differential (10/20/2024 4:35 AM DIRECTOR ADVERTISING) [facility] WBC 9.7 3.8 - 9.9 K/cumm Hgb 11.0(L) 11.9 - 15.5 g/dL [facility] Hct 32.5(L) 35.6 - 45.5 % [facility] Plt 139(L) 150 - 400 K/cumm [facility] MPV 10.3 9.1 - 12.3 fL [facility] RBC 3.57(L) 3.90 - 5.20 M/cumm [facility] MCV 91.0 81.3 - 96.4 fL [facility] MCH 30.8 27.1 - 33.3 pg [facility] MCHC 33.8 32.3 - 35.7 g/dL [facility] RDW CV 14.1 11.1 - 14.9 % [facility] RDW SD 47.2 35.7 - 48.1 fL [facility] NRBC abs 0.00 0.00 - 0.01 K/cumm [facility] Blood 10/20/2024 4:35 AM DIRECTOR ADVERTISING 10/20/2024 5:15 AM DIRECTOR ADVERTISING Terri Soni BUSINESS INTELLIGENCE DEVELOPER LAB BLOOD ORDERABLES Final Result Performing Organization Address City/[facility]/ZIP Co de Phone Number [facility] [place] [address] * Phosphorus (10/20/2024 4:35 AM DIRECTOR ADVERTISING) [facility] Phosphorus, pl 2.8 2.3 - 4.5 mg/dL Blood 10/20/2024 4:35 AM DIRECTOR ADVERTISING 10/20/2024 5:15 AM DIRECTOR ADVERTISING Terri Soni BUSINESS INTELLIGENCE DEVELOPER LAB BLOOD ORDERABLES Final Result Performing Organization Address [facility]/ZIP Co de Phone Number [facility] [place] [address] * Magnesium (10/20/2024 4:35 AM DIRECTOR ADVERTISING) Pathologist [facility] Magnesium 1.8 1.4 - 2.5 mg/dL Blood 10/20/2024 4:35 AM DIRECTOR ADVERTISING 10/20/2024 5:15 AM DIRECTOR ADVERTISING Terri Soni BUSINESS INTELLIGENCE DEVELOPER LAB BLOOD ORDERABLES Final Result [facility] [place] [address] * Basic metabolic panel (10/20/2024 4:35 AM DIRECTOR ADVERTISING) Pathologist [facility] Sodium 140 135 - 145 mmol/L Potassium, pl 4.0 3.3 - 4.9 mmol/L [facility] Chloride 104 97 - 110 mmol/L [facility] CO2 28 22 - 32 mmol/L [facility] Anion gap 8 2 - 15 mmol/L [facility] BUN 15 6 - 25 mg/dL [facility] Creatinine 0.87 0.60 - 1.10 mg/dL [facility] Glucose 95 70 - 199 mg/dL [facility] Comment: Interpretive Data Fasting glucose >/= 126 mg/dl is diagnostic for diabetes. Fasting is defined as no caloric intake for at least 8 hours. Fasting glucose between 100 mg/dl to 125 mg/dl is diagnostic of prediabetes. In a patient with classic symptoms of hyperglycemia or hyperglycemic crisis, a random glucose >/= 200 mg/dl is diagnostic for diabetes. In the absence of unequivocal hyperglycemia, results should be confirmed by repeat testing. The classification and Diagnosis of Diabetes Diabetes Care 2021; 46: S19-S40. Current interpretive data was last revised 2022. Calcium 8.8 8.5 - 10.3 mg/dL [facility] Blood 10/20/2024 4:35 AM DIRECTOR ADVERTISING 10/20/2024 5:15 AM DIRECTOR ADVERTISING Terri A. Soni BUSINESS INTELLIGENCE DEVELOPER LAB BLOOD ORDERABLES Final Result [facility] [place] [address] * TRANSTHORACIC ECHO (TTE) COMPLETE W DOPPLER/CF W CONTRAST (10/19/2024 5:49 PM DIRECTOR ADVERTISING) LV EF % CONS SCIMAGE Anatomical Region Laterality Modality Ultrasound 10/19/2024 4:43 PM DIRECTOR ADVERTISING Narrative 10/22/2024 11:13 AM DIRECTOR ADVERTISING [facility] [place]iac [place] [address] Transthoracic Echocardiographic Report Patient Name: STACY HERRON : 1945 (79y 9m) Gender: F Study Date: 10/19/2024 04:43:04 PM Ht(Inch): 61 Wt(Lb): 134.92 BSA: 1.62 Medical Device Assembler: Beth Guajardo [facility] Location: [id number] Order Provider: CHANEL KELLEY BMI: 25.49 BP: 115 / 84 Quality: The study images were of technically good quality. Ref Provider: CHANEL KELLEY PROCEDURES: Echocardiographic Report: ([id number], [id number], [id number]) Transthoracic complete echo with strain imaging and contrast, 2D, spectral and tissue Doppler, color flow Doppler, M- mode. Contrast: Contrast Enhancement was Employed: After initial imaging due to sub- optimal quality related to co-morbidity defined by patient's body habitus. 0.8 ml Optison Administered, (2.2 ml wasted). INDICATIONS: s/p TTVR. MEASUREMENTS: 2D/MM Value Range Doppler Value Range LVIDd 2D 3.30 cm [ 3.80 - 5.20 ] AV Peak Ck 1.30 m/s [ 1.00 - 1.70 ] LVIDs 2D 1.83 cm [ 2.20 - 3.50 ] AV Peak PG 6.76 IVSd 2D 0.88 cm [ 0.60 - 0.90 ] AV Mean PG 3.47 mmHg LVPWd 2D 0.88 cm [ 0.60 - 0.90 ] AV VTI 17.84 cm LV Thickness Ratio 1.00 [ 1.50 - 3.00 ] LVOT Peak Ck 1.25 m/s [ 0.70 - 1.10 ] LV FS 2D 44.71 % [ 27.00 - 45.00 ] LVOT Peak PG 6.25 LV Mass 2D 79.64 g LVOT Mean PG 2.97 mmHg LV Mass Index 2D 49.16 g/m2 LVOT VTI 17.29 cm RWT 0.53 LVOT Diam 1.77 cm LV EDV 2D 44.13 IAN VTI 2.38 cm2 LV ESV 2D 10.14 IAN Vmax 2.36 cm2 EF Teich 2D 77 % [ 54 - 74 ] LVOT/AV VTI 0.97 - Dimensionless index (DVI) LV EDV Index 31.73 ml/m2 MV E Peak Ck 0.39 m/s [ 0.60 - 1.30 ] EDV Mod 2C 52.56 ml [ 41.00 - 133.00 ] MV A Peak Ck 0.82 m/s [ 1.00 - 1.20 ] EDV Mod 4C 49.94 ml MV E/A 0.47 ratio [ 0.80 - 1.50 ] EDV Mod BP 51.41 ml [ 46.00 - 106.00 ] MV Decel Time 103.72 msec [ 104.00 - 258.00 ] ESV Mod 2C 13.78 ml Med E` Ck 3.67 cm/sec [ 8.00 - 15.00 ] ESV Mod 4C 15.22 ml Lat E` Ck 7.20 cm/sec [ 10.00 - 15.00 ] ESV Mod BP 14.54 ml [ 14.00 - 42.00 ] Average E/E` 7.18 EF Mod 2C 74 % TV Peak Ck 1.28 m/s [ 0.30 - 0.70 ] EF Mod 4C 70 % TV Peak PG 6.55 EF Mod BP 72 % [ 54 - 74 ] TV Mean PG 3.73 mmHg LV GLS -11.6 % TV VTI 18.79 cm LA Length 2C 4.61 cm RV S` 7.22 cm/sec LA Length 4C 4.86 cm TR Peak Ck 1.68 m/s [ 1.00 - 2.80 ] LA Volume 2C 24.3 ml TR Peak PG 11.3 LA Volume 4C 20.2 ml PV Peak Ck 0.86 m/s [ 0.40 - 0.80 ] LA Volume BP 23.83 ml PV Peak PG 2.96 LA Volume Index 14.71 ml/m2 PV Accel Time 98.95 msec [ 103.00 - 142.00 ] TAPSE 1.33 cm [ 1.71 - 5.00 ] PV Accel Dare 763.32 cm/sec2 AoR Diam 2D 2.93 cm [ 2.70 - 3.70 ] Ao Root Index 1.81 cm/m2 Asc Ao Diam 2D 3.31 cm Asc Ao Index 2.04 cm/m2 - FINDINGS: Left Ventricle: The left ventricle cavity is small based on 2D measurements. Normal left ventricular size based on volume index. Concentric LV remodeling. Normal left ventricular systolic function. The Ejection Fraction (Red's) is measured at 72 %. Left ventricular diastolic parameters are consistent with normal diastolic function. Unable to assess global longitudinal strain due to image quality. Right Ventricle: Difficult to assess RV function due to Evoque TVR which obscures TAPSE and S' assessments. Left Atrium: The left atrium is normal in size. Right Atrium: The right atrium is not well visualized due to poor acoustic windows, Evoque valve. Mitral Valve: Mild mitral annular calcification. There is trivial mitral regurgitation. Aortic Valve: Normal appearance and function of the aortic valve. Trileaflet aortic valve. The aortic cusps appear mildly thickened. No aortic regurgitation seen. No aortic valve stenosis. Tricuspid Valve: There is mild tricuspid regurgitation. There is a 48 mm Evoque bioprosthetic valve in the tricuspid position. The valve is well seated with normal leaflet motion. The tricuspid prosthesis demonstrates a normal transvalvular gradient for valve type and size (TV mean and peak gradient are 7mmHg and 4 mmHg, respectively. ) at 103 bpm. There is no evidence of paravalvular tricuspid regurgitation. The estimated right ventricular systolic pressure is 17 mmHg. Pulmonic Valve: Normal appearance of the pulmonic valve leaflets without evidence stenosis. Pericardium: No pericardial effusion. Aorta: The aortic root is normal in size. There is dilation of the ascending aorta when indexed. IVC: The inferior vena cava is of normal size. The IVC (inferior vena cava) was <2.1 cm and collapsibility >50%. The RA pressure is estimated to be 3 mmHg. Rhythm: The rhythm during the study was sinus tachycardia. CONCLUSIONS: 1. The left ventricle cavity is small based on 2D measurements. Normal left ventricular size based on volume index. Concentric LV remodeling. Normal left ventricular systolic function. The Ejection Fraction (Red's) is measured at 72 %. Left ventricular diastolic parameters are consistent with normal diastolic function. 2. The left atrium is normal in size. 3. Mild mitral annular calcification. There is trivial mitral regurgitation. 4. Normal appearance and function of the aortic valve. Trileaflet aortic valve. No aortic valve stenosis. 5. There is mild tricuspid regurgitation. There is a 48 mm Evoque bioprosthetic valve in the tricuspid position. The valve is well seated with normal leaflet motion. The tricuspid prosthesis demonstrates a normal transvalvular gradient for valve type and size (TV mean and peak gradient are 7mmHg and 4 mmHg, respectively. ) at 103 bpm. The estimated right ventricular systolic pressure is 17 mmHg. 6. The aortic root is normal in size. There is dilation of the ascending aorta when indexed. 7. The inferior vena cava is of normal size. The IVC (inferior vena cava) was <2.1 cm and collapsibility >50%. The RA pressure is estimated to be 3 mmHg. COMPARISONS: There was no previous study available for comparison. ATTESTATION: I have reviewed and interpreted the pertinent images and measurements of this study. I attest to the conclusions in the final report that is provided above. DISCLAIMER: The study images and the final report will be retained in the patient chart by the [facility] for the legally required time period. This chart constitutes the legal record of any testing performed. Electronically Signed By: Bk Castillo MD 10/22/2024 10:57:14 AM DIRECTOR ADVERTISING Electronically Signed By: Rom Breen M.D. 10/22/2024 11:12:10 AM DIRECTOR ADVERTISING Procedure Note Rom Breen MD - 10/22/2024 [facility] [place] [address] Transthoracic Echocardiographic Report Patient Name: STACY HERRON : 1945 (79y 9m) Gender: F Study Date: 10/19/2024 04:43:04 PM Ht(Inch): 61 Wt(Lb): 134.92 BSA: 1.62 Medical Device Assembler: Beth Guajardo [facility] Location: [id number] Order Provider:CHANEL KELLEY BMI: 25.49 BP: 115 / 84 Quality: The study images were oftechnically good quality. Ref Provider: CHANEL KELLEY PROCEDURES: Echocardiographic Report: [id number], [id number]) Transthoracic completeecho with strain imaging and contrast, 2D, spectral and tissue Doppler, color flow Doppler,M- mode. Contrast: Contrast Enhancement was Employed: After initial imaging due tosub- optimal quality related to co-morbidity defined by patient's body habitus. 0.8 mlOptison Administered, (2.2 ml wasted). INDICATIONS: s/p TTVR. MEASUREMENTS: 2D/MM Value Range DopplerValue Range LVIDd 2D 3.30 cm [ 3.80 - 5.20 ] AV Peak Vel1.30 m/s [ 1.00 - 1.70 ] LVIDs 2D 1.83 cm [ 2.20 - 3.50 ] AV Peak PG6.76 IVSd 2D 0.88 cm [ 0.60 - 0.90 ] AV Mean PG3.47 mmHg LVPWd 2D 0.88 cm [ 0.60 - 0.90 ] AV VTI17.84 cm LV Thickness Ratio 1.00 [ 1.50 - 3.00 ] LVOT Peak Vel1.25 m/s [ 0.70 - 1.10 ] LV FS 2D 44.71 % [ 27.00 - 45.00 ] LVOT Peak PG6.25 LV Mass 2D 79.64 g LVOT Mean PG2.97 mmHg LV Mass Index 2D 49.16 g/m2 LVOT VTI17.29 cm RWT 0.53 LVOT Diam1.77 cm LV EDV 2D 44.13 IAN VTI2.38 cm2 LV ESV 2D 10.14 IAN Vmax2.36 cm2 EF Teich 2D 77 % [ 54 - 74 ] LVOT/AV VTI0.97 - Dimensionless index (DVI) LV EDV Index 31.73 ml/m2 MV E Peak Vel0.39 m/s [ 0.60 - 1.30 ] EDV Mod 2C 52.56 ml [ 41.00 - 133.00 ] MV A Peak Vel0.82 m/s [ 1.00 - 1.20 ] EDV Mod 4C 49.94 ml MV E/A0.47 ratio [ 0.80 - 1.50 ] EDV Mod BP 51.41 ml [ 46.00 - 106.00 ] MV Decel Lqva866.72 msec [ 104.00 - 258.00 ] ESV Mod 2C 13.78 ml Med E` Vel3.67 cm/sec [ 8.00 - 15.00 ] ESV Mod 4C 15.22 ml Lat E` Vel7.20 cm/sec [ 10.00 - 15.00 ] ESV Mod BP 14.54 ml [ 14.00 - 42.00 ] Average E/E`7.18 EF Mod 2C 74 % TV Peak Vel1.28 m/s [ 0.30 - 0.70 ] EF Mod 4C 70 % TV Peak PG6.55 EF Mod BP 72 % [ 54 - 74 ] TV Mean PG3.73 mmHg LV GLS -11.6 % TV VTI18.79 cm LA Length 2C 4.61 cm RV S`7.22 cm/sec LA Length 4C 4.86 cm TR Peak Vel1.68 m/s [ 1.00 - 2.80 ] LA Volume 2C 24.3 ml TR Peak PG11.3 LA Volume 4C 20.2 ml PV Peak Vel0.86 m/s [ 0.40 - 0.80 ] LA Volume BP 23.83 ml PV Peak PG2.96 LA Volume Index 14.71 ml/m2 PV Accel Time98.95 msec [ 103.00 - 142.00 ] TAPSE 1.33 cm [ 1.71 - 5.00 ] PV Accel Hewfj284.32 cm/sec2 AoR Diam 2D 2.93 cm [ 2.70 - 3.70 ] Ao Root Index1.81 cm/m2 Asc Ao Diam 2D3.31 cm Asc Ao Index2.04 cm/m2 - FINDINGS: Left Ventricle: The left ventricle cavity is small based on 2Dmeasurements. Normal left ventricular size based on volume index. Concentric LV remodeling. Normalleft ventricular systolic function. The Ejection Fraction (Red's) is measured at 72 %.Left ventricular diastolic parameters are consistent with normal diastolicfunction. Unable to assess global longitudinal strain due to image quality. Right Ventricle: Difficult to assess RV function due to Evoque TVR whichobscures TAPSE and S' assessments. Left Atrium: The left atrium is normal in size. Right Atrium: The right atrium is not well visualized due to poor acousticwindows, Evoque valve. Mitral Valve: Mild mitral annular calcification. There is trivial mitralregurgitation. Aortic Valve: Normal appearance and function of the aortic valve.Trileaflet aortic valve. The aortic cusps appear mildly thickened. No aortic regurgitationseen. No aortic valve stenosis. Tricuspid Valve: There is mild tricuspid regurgitation. There is a 48 mmEvoque bioprosthetic valve in the tricuspid position. The valve is well seatedwith normal leaflet motion. The tricuspid prosthesis demonstrates a normaltransvalvular gradient for valve type and size (TV mean and peak gradient are 7mmHg and 4 mmHg,respectively. ) at 103 bpm. There is no evidence of paravalvular tricuspidregurgitation. The estimated right ventricular systolic pressure is 17 mmHg. Pulmonic Valve: Normal appearance of the pulmonic valve leaflets withoutevidence stenosis. Pericardium: No pericardial effusion. Aorta: The aortic root is normal in size. There is dilation of theascending aorta when indexed. IVC: The inferior vena cava is of normal size. The IVC (inferior venacava) was <2.1 cm and collapsibility >50%. The RA pressure is estimated to be 3 mmHg. Rhythm: The rhythm during the study was sinus tachycardia. CONCLUSIONS: 1. The left ventricle cavity is small based on 2D measurements. Normalleft ventricular size based on volume index. Concentric LV remodeling. Normal leftventricular systolic function. The Ejection Fraction (Red's) is measured at 72 %. Leftventricular diastolic parameters are consistent with normal diastolic function. 2. The left atrium is normal in size. 3. Mild mitral annular calcification. There is trivial mitralregurgitation. 4. Normal appearance and function of the aortic valve. Trileaflet aorticvalve. No aortic valve stenosis. 5. There is mild tricuspid regurgitation. There is a 48 mm Evoquebioprosthetic valve in the tricuspid position. The valve is well seated with normal leafletmotion. The tricuspid prosthesis demonstrates a normal transvalvular gradient forvalve type and size (TV mean and peak gradient are 7mmHg and 4 mmHg, respectively. ) at 103 bpm. The estimated right ventricular systolic pressure is 17mmHg. 6. The aortic root is normal in size. There is dilation of the ascendingaorta when indexed. 7. The inferior vena cava is of normal size. The IVC (inferior vena cava)was <2.1 cm and collapsibility >50%. The RA pressure is estimated to be 3 mmHg. COMPARISONS: There was no previous study available for comparison. ATTESTATION: I have reviewed and interpreted the pertinent images and measurements ofthis study. I attest to the conclusions in the final report that is provided above. DISCLAIMER: The study images and the final report will be retained in the patientchart by the [facility] for the legally required time period. This chart constitutesthe legal record of any testing performed. Electronically Signed By: Bk Castillo MD 10/22/2024 10:57:14 AM DIRECTOR ADVERTISING Electronically Signed By: Rom Breen M.D. 10/22/2024 11:12:10 AM DIRECTOR ADVERTISING us Chanel Kelley NP CV ECHO PROCEDURES Final Re sult * Protime-INR (10/19/2024 11:50 AM DIRECTOR ADVERTISING) PT 11.0 9.7 - 13.0 sec INR 1.02 0.90 - 1.20 [facility] Comment: Interpretive data Oral anticoagulant therapeutic ranges: Venous thromboembolism prophylaxis or treatment: 2.0-3.0 CARDIOLOGY Standard range: 2.0-3.0 High-intensity range: 2.5-3.5 Refer to indication-specific guidelines for appropriate target ranges for prosthetic heart valve replacement. Current interpretive data was last revised on 2019. Blood 10/19/2024 11:5 0 AM DIRECTOR ADVERTISING 10/19/2024 12:38 PM DIRECTOR ADVERTISING Narrative [facility] - 10/19/2024 1:02 PM DIRECTOR ADVERTISING Baseline prior to apixaban initiation. us Isaiah Crockett NP LAB BLOOD ORDERABLES Final R esult [facility] [place] [address] * (ABNORMAL) Hepatic function panel (10/19/2024 11:50 AM DIRECTOR ADVERTISING) Bilirubin, total 0.5 0.1 - 1.2 mg/dL Bilirubin, direct <0.2 0.1 - 0.3 mg/dL [facility] Protein, pl 7.5 6.5 - 8.5 g/dL [facility] Albumin 4.5 3.5 - 5.0 g/dL [facility] Alk phos 95 40 - 130 Units/L [facility] ALT 24 7 - 45 Units/L [facility] AST 55(H) 10 - 45 Units/L [facility] Blood 10/19/2024 11:5 0 AM DIRECTOR ADVERTISING 10/19/2024 12:40 PM DIRECTOR ADVERTISING Narrative [facility] - 10/19/2024 1:10 PM DIRECTOR ADVERTISING Baseline prior to apixaban initiation. us Isaiah Crockett BUSINESS INTELLIGENCE DEVELOPER LAB BLOOD ORDERABLES Final R esult [facility] [place] [address] * XR Chest PA Lateral 2 Views (10/19/2024 8:19 AM DIRECTOR ADVERTISING) Anatomical Region Laterality Modality Body, Chest N/A Computed Radiogr aphy 10/19/2024 11:0 9 AM DIRECTOR ADVERTISING Impressions 10/19/2024 11:45 AM DIRECTOR ADVERTISING Comparison is made to radiograph dated 10/18/2024 at 2:13 PM. Changes of transcatheter tricuspid valve replacement. No pleural effusion or pneumothorax. No pulmonary consolidation. Cardiomediastinal silhouette is within normal limits with unchanged tortuous aorta. Interval resolution of retrocardiac opacities/left lung base atelectasis. Dictated by: Caitlin Mendoza M.D. The radiology attending physician has personally reviewed this study, and had reviewed and/or edited this written report and agrees with it. Electronically signed by: Rodrigo Tolentino M.D. Narrative 10/19/2024 11:45 AM DIRECTOR ADVERTISING EXAMINATION: 2 view chest radiograph Procedure Note Rodrigo Tolentino MD - 10/19/2024 EXAMINATION: 2 view chest radiograph IMPRESSION: Comparison is made to radiograph dated 10/18/2024 at 2:13 PM. Changes of transcatheter tricuspid valve replacement. No pleural effusion or pneumothorax. No pulmonary consolidation. Cardiomediastinal silhouette is within normal limits with unchanged tortuous aorta. Interval resolution of retrocardiac opacities/left lung base atelectasis. Dictated by: Caitlin Mendoza M.D. The radiology attending physician has personally reviewed this study, and had reviewed and/or edited this written report and agrees with it. Electronically signed by: Rodrigo Tolentino M.D. Chanel Kelley NP IMG XR PROCEDURES Final Res ult * ECG 12 lead (10/19/2024 4:24 AM DIRECTOR ADVERTISING) Ventricular Rate EKG/Min 102 BPM [facility] Atrial Rate 102 BPM [facility] MN-Interval (MSEC) 154 ms [facility] QRS-Interval (MSEC) 106 ms [facility] QT-Interval (MSEC) 376 ms [facility] QTc 490 ms [facility] P [place] 50 degrees [facility] R [place] 47 degrees [facility] T [place] -17 degrees [facility] Diagnosis Sinus tachycardia Low voltage QRS Incomplete right bundle branch block ST & T wave abnormality, consider anterior ischemia Abnormal ECG When compared with ECG of 18-OCT-2024 13:57, No significant change was found Confirmed by BENNY ADHIKARI M.D ([id number]) on 10/19/2024 10:23:40 AM [facility] 10/19/2024 4:24 AM DIRECTOR ADVERTISING 10/19/2024 10:23 AM DIRECTOR ADVERTISING Chanel Kelley NP ECG ORDERABLES Final Resul t [facility] [place] * eGFR (10/18/2024 11:26 PM DIRECTOR ADVERTISING) Pathologist [facility] eGFR 60 >=60 mL/min/1. 73 m2 Comment: Interpretive Data Reference Interval Normal >/= 90 mL/min/1.73m2 Mildly decreased* 60 - 89 mL/min/1.73m2 Mildly to moderately decreased 45 - 59 mL/min/1.73m2 Moderately to severely decreased 30 - 44 mL/min/1.73m2 Severely decreased 15 - 29 mL/min/1.73m2 Kidney Failure < 15 mL/min/1.73m2 *Relative to young adult level Estimated glomerular filtration rate is determined by the 2020 CKD-EPI equation recommended by the National Kidney Foundation (A Unifying Approach to GFR Estimation: Recommendations of the NKF-ASK Task Force on Reassessing the Inclusion of Race in Diagnosing Kidney Disease, JASN 2020). The CKD-EPI equation should not be used for patients with unstable renal function and has not been validated in children and those over 70. Current interpretive data was last reviewed 2021. Blood 10/18/2024 11:2 6 PM DIRECTOR ADVERTISING 10/18/2024 11:49 PM DIRECTOR ADVERTISING us Terri Soni BUSINESS INTELLIGENCE DEVELOPER LAB BLOOD ORDERABLES Final Result [facility] [place] [address] * (ABNORMAL) Differential, auto (10/18/2024 11:26 PM DIRECTOR ADVERTISING) Neutrophil abs 7.1(H) 1.5 - 6.5 K/cumm Imm gran abs 0.0 0.0 - 0.1 K/cumm [facility] Lymphocyte abs 0.5(L) 0.8 - 3.3 K/cumm [facility] Monocyte abs 0.4 0.2 - 0.8 K/cumm [facility] Eosinophil abs 0.0 0.0 - 0.5 K/cumm [facility] Basophil abs 0.0 0.0 - 0.1 K/cumm [facility] Neutrophil pct 88.7 % [facility] Comment: Interpretive Data Percent cell count reference ranges are not reported, since discordance with absolute values may lead to misinterpretation of CBC data. Current Interpretive Data was last revised on 2017. Imm gran pct 0.3 % [facility] Comment: Interpretive Data Percent cell count reference ranges are not reported, since discordance with absolute values may lead to misinterpretation of CBC data. Current Interpretive Data was last revised on 2017. Lymphocyte pct 6.4 % [facility] Comment: Interpretive Data Percent cell count reference ranges are not reported, since discordance with absolute values may lead to misinterpretation of CBC data. Current Interpretive Data was last revised on 2017. Monocyte pct 4.6 % [facility] Comment: Interpretive Data Percent cell count reference ranges are not reported, since discordance with absolute values may lead to misinterpretation of CBC data. Current Interpretive Data was last revised on 2017. Eosinophil pct 0.0 % [facility] Comment: Interpretive Data Percent cell count reference ranges are not reported, since discordance with absolute values may lead to misinterpretation of CBC data. Current Interpretive Data was last revised on 2017. Basophil pct 0.0 % [facility] Comment: Interpretive Data Percent cell count reference ranges are not reported, since discordance with absolute values may lead to misinterpretation of CBC data. Current Interpretive Data was last revised on 2017. Blood 10/18/2024 11:2 6 PM DIRECTOR ADVERTISING 10/18/2024 11:50 PM DIRECTOR ADVERTISING Terri Soni BUSINESS INTELLIGENCE DEVELOPER LAB BLOOD ORDERABLES Final Result [facility] [address] [facility] [place] [address] * (ABNORMAL) CBC with auto differential (10/18/2024 11:26 PM DIRECTOR ADVERTISING) Pathologist [facility] WBC 8.0 3.8 - 9.9 K/cumm Hgb 11.8(L) 11.9 - 15.5 g/dL [facility] Hct 36.3 35.6 - 45.5 % [facility] Plt 189 150 - 400 K/cumm [facility] MPV 10.0 9.1 - 12.3 fL [facility] RBC 3.96 3.90 - 5.20 M/cumm [facility] MCV 91.7 81.3 - 96.4 fL [facility] MCH 29.8 27.1 - 33.3 pg [facility] MCHC 32.5 32.3 - 35.7 g/dL [facility] RDW CV 13.6 11.1 - 14.9 % [facility] RDW SD 46.4 35.7 - 48.1 fL [facility] NRBC abs 0.00 0.00 - 0.01 K/cumm [facility] Blood 10/18/2024 11:2 6 PM DIRECTOR ADVERTISING 10/18/2024 11:50 PM DIRECTOR ADVERTISING us Terri Soni BUSINESS INTELLIGENCE DEVELOPER LAB [place] [address] * Phosphorus (10/18/2024 11:26 PM DIRECTOR ADVERTISING) [facility] Phosphorus, pl 2.4 2.3 - 4.5 mg/dL Blood 10/18/2024 11:2 6 PM DIRECTOR ADVERTISING 10/18/2024 11:49 PM DIRECTOR ADVERTISING Terri Soni BUSINESS INTELLIGENCE DEVELOPER LAB BLOOD ORDERABLES Final Result Performing Organization Address [facility]/[employer] de Phone Number [facility] Department [place] [address] * Magnesium (10/18/2024 11:26 PM DIRECTOR ADVERTISING) [facility] Magnesium 1.9 1.4 - 2.5 mg/dL Blood 10/18/2024 11:2 6 PM DIRECTOR ADVERTISING 10/18/2024 11:49 PM DIRECTOR ADVERTISING Terri Soni BUSINESS INTELLIGENCE DEVELOPER LAB BLOOD ORDERABLES Final Result Performing Organization Address [facility] de Phone Number [facility] [place] [address] * (ABNORMAL) Basic metabolic panel (10/18/2024 11:26 PM DIRECTOR ADVERTISING) [facility] Sodium 141 135 - 145 mmol/L Potassium, pl 4.4 3.3 - 4.9 mmol/L [facility] Chloride 105 97 - 110 mmol/L [facility] CO2 23 22 - 32 mmol/L [facility] Anion gap 13 2 - 15 mmol/L [facility] BUN 20 6 - 25 mg/dL [facility] Creatinine 0.97 0.60 - 1.10 mg/dL [facility] Glucose 240(H) 70 - 199 mg/dL [facility] Comment: Interpretive Data Fasting glucose >/= 126 mg/dl is diagnostic for diabetes. Fasting is defined as no caloric intake for at least 8 hours. Fasting glucose between 100 mg/dl to 125 mg/dl is diagnostic of prediabetes. In a patient with classic symptoms of hyperglycemia or hyperglycemic crisis, a random glucose >/= 200 mg/dl is diagnostic for diabetes. In the absence of unequivocal hyperglycemia, results should be confirmed by repeat testing. The classification and Diagnosis of Diabetes Diabetes Care 2021; 46: S19-S40. Current interpretive data was last revised 2022. Calcium 9.5 8.5 - 10.3 mg/dL [facility] Blood 10/18/2024 11:2 6 PM DIRECTOR ADVERTISING 10/18/2024 11:49 PM DIRECTOR ADVERTISING us Terri Soni NP LAB BLOOD ORDERABLES Final Result [facility] [place] [address] * XR Chest 1 view (10/18/2024 2:22 PM DIRECTOR ADVERTISING) Anatomical Region Laterality Modality Body, Chest N/A Computed Radiogr aphy 10/18/2024 3:07 PM DIRECTOR ADVERTISING Impressions 10/18/2024 4:23 PM DIRECTOR ADVERTISING Comparison is made to chest radiograph of 11/09/2023. Transcatheter tricuspid valve replacement. Mild left basilar atelectasis. No pleural effusion. No pulmonary edema. No pneumothorax. Cardiomediastinal silhouette is unchanged. Dictated by: Mikhail Craft M.D. The radiology attending physician has personally reviewed this study, and had reviewed and/or edited this written report and agrees with it. Electronically signed by: Rubina Heranndez M.D. Narrative 10/18/2024 4:23 PM DIRECTOR ADVERTISING EXAMINATION: 1 view chest radiograph Procedure Note Rubian Hernandez MD - 10/18/2024 EXAMINATION: 1 view chest radiograph IMPRESSION: Comparison is made to chest radiograph of 11/09/2023. Transcatheter tricuspid valve replacement. Mild left basilar atelectasis. No pleural effusion. No pulmonary edema. No pneumothorax. Cardiomediastinal silhouette is unchanged. Dictated by: Mikhail Craft M.D. The radiology attending physician has personally reviewed this study, and had reviewed and/or edited this written report and agrees with it. Electronically signed by: Rubina Hernandez M.D. Chanel Kelley NP IMG XR PROCEDURES Final Res ult * eGFR (10/18/2024 2:10 PM DIRECTOR ADVERTISING) eGFR 63 >=60 mL/min/1. 73 m2 Comment: Interpretive Data Reference Interval Normal >/= 90 mL/min/1.73m2 Mildly decreased* 60 - 89 mL/min/1.73m2 Mildly to moderately decreased 45 - 59 mL/min/1.73m2 Moderately to severely decreased 30 - 44 mL/min/1.73m2 Severely decreased 15 - 29 mL/min/1.73m2 Kidney Failure < 15 mL/min/1.73m2 *Relative to young adult level Estimated glomerular filtration rate is determined by the 2020 CKD-EPI equation recommended by the National Kidney Foundation (A Unifying Approach to GFR Estimation: Recommendations of the NKF-ASK Task Force on Reassessing the Inclusion of Race in Diagnosing Kidney Disease, JASN 2020). The CKD-EPI equation should not be used for patients with unstable renal function and has not been validated in children and those over 70. Current interpretive data was last reviewed 2021. Blood 10/18/2024 2:10 PM DIRECTOR ADVERTISING 10/18/2024 2:25 PM DIRECTOR ADVERTISING Chanel Kelley NP LAB BLOOD ORDERABLES Final Result [facility] [place] [address] * Differential, auto (10/18/2024 2:10 PM DIRECTOR ADVERTISING) Neutrophil abs 4.8 1.5 - 6.5 K/cumm Imm gran abs 0.0 0.0 - 0.1 K/cumm [facility] Lymphocyte abs 0.8 0.8 - 3.3 K/cumm [facility] Monocyte abs 0.2 0.2 - 0.8 K/cumm [facility] Eosinophil abs 0.0 0.0 - 0.5 K/cumm [facility] Basophil abs 0.0 0.0 - 0.1 K/cumm [facility] Neutrophil pct 81.5 % [facility] Comment: Interpretive Data Percent cell count reference ranges are not reported, since discordance with absolute values may lead to misinterpretation of CBC data. Current Interpretive Data was last revised on 2017. Imm gran pct 0.5 % [facility] Comment: Interpretive Data Percent cell count reference ranges are not reported, since discordance with absolute values may lead to misinterpretation of CBC data. Current Interpretive Data was last revised on 2017. Lymphocyte pct 13.9 % [facility] Comment: Interpretive Data Percent cell count reference ranges are not reported, since discordance with absolute values may lead to misinterpretation of CBC data. Current Interpretive Data was last revised on 2017. Monocyte pct 3.3 % [facility] Comment: Interpretive Data Percent cell count reference ranges are not reported, since discordance with absolute values may lead to misinterpretation of CBC data. Current Interpretive Data was last revised on 2017. Eosinophil pct 0.5 % [facility] Comment: Interpretive Data Percent cell count reference ranges are not reported, since discordance with absolute values may lead to misinterpretation of CBC data. Current Interpretive Data was last revised on 2017. Basophil pct 0.3 % [facility] Comment: Interpretive Data Percent cell count reference ranges are not reported, since discordance with absolute values may lead to misinterpretation of CBC data. Current Interpretive Data was last revised on 2017. Blood 10/18/2024 2:1 0 PM DIRECTOR ADVERTISING 10/18/2024 2:14 PM DIRECTOR ADVERTISING us Chanel Kelley NP LAB BLOOD ORDERABLES Final Result [facility] [place] [address] * (ABNORMAL) CBC with auto differential (10/18/2024 2:10 PM DIRECTOR ADVERTISING) [facility] WBC 5.8 3.8 - 9.9 K/cumm Hgb 11.7(L) 11.9 - 15.5 g/dL [facility] Hct 34.6(L) 35.6 - 45.5 % [facility] Plt 202 150 - 400 K/cumm [facility] MPV 9.9 9.1 - 12.3 fL [facility] RBC 3.83(L) 3.90 - 5.20 M/cumm [facility] MCV 90.3 81.3 - 96.4 fL [facility] MCH 30.5 27.1 - 33.3 pg [facility] MCHC 33.8 32.3 - 35.7 g/dL [facility] RDW CV 13.6 11.1 - 14.9 % [facility] RDW SD 45.2 35.7 - 48.1 fL [facility] NRBC abs 0.00 0.00 - 0.01 K/cumm [facility] Blood 10/18/2024 2:10 PM DIRECTOR ADVERTISING 10/18/2024 2:14 PM DIRECTOR ADVERTISING Chanel Kelley NP LAB BLOOD ORDERABLES Final Result [facility] [place] [address] * (ABNORMAL) aPTT (10/18/2024 2:10 PM DIRECTOR ADVERTISING) [facility] aPTT 66(H) 28 - 38 sec Comment: Interpretive Data Heparin therapeutic range: 66.0 - 100.0 seconds. Range based on correlation with therapeutic heparin activity range of 0.3 - 0.7 Units/mL. Current interpretive data was last revised on 2023. Blood 10/18/2024 2:10 PM DIRECTOR ADVERTISING 10/18/2024 2:14 PM DIRECTOR ADVERTISING Chanel Kelley NP LAB BLOOD ORDERABLES Final Result [facility] [place] [address] * (ABNORMAL) Protime-INR (10/18/2024 2:10 PM DIRECTOR ADVERTISING) Pathologist [facility] PT 13.1(H) 9.7 - 13.0 sec INR 1.21(H) 0.90 - 1.20 [facility] Comment: Interpretive data Oral anticoagulant therapeutic ranges: Venous thromboembolism prophylaxis or treatment: 2.0-3.0 CARDIOLOGY Standard range: 2.0-3.0 High-intensity range: 2.5-3.5 Refer to indication-specific guidelines for appropriate target ranges for prosthetic heart valve replacement. Current interpretive data was last revised on 2019. Blood 10/18/2024 2:10 PM DIRECTOR ADVERTISING 10/18/2024 2:14 PM DIRECTOR ADVERTISING Chanel Kelley NP LAB BLOOD ORDERABLES Final Result Performing Organization Address [facility]/ZIP Co de Phone Number [facility] [place] [address] * Magnesium (10/18/2024 2:10 PM DIRECTOR ADVERTISING) [facility] Magnesium 1.9 1.4 - 2.5 mg/dL Blood 10/18/2024 2:10 PM DIRECTOR ADVERTISING 10/18/2024 2:14 PM DIRECTOR ADVERTISING Chanel Kelley NP LAB BLOOD ORDERABLES Final Result Performing Organization Address City/[facility]/[place] [address] * (ABNORMAL) Comprehensive metabolic panel (10/18/2024 2:10 PM DIRECTOR ADVERTISING) Pathologist [facility] Sodium 142 135 - 145 mmol/L Potassium, pl 4.2 3.3 - 4.9 mmol/L [facility] Chloride 108 97 - 110 mmol/L [facility] CO2 24 22 - 32 mmol/L [facility] Anion gap 10 2 - 15 mmol/L [facility] BUN 20 6 - 25 mg/dL [facility] Creatinine 0.93 0.60 - 1.10 mg/dL [facility] Glucose 123 70 - 199 mg/dL [facility] Comment: Interpretive Data Fasting glucose >/= 126 mg/dl is diagnostic for diabetes. Fasting is defined as no caloric intake for at least 8 hours. Fasting glucose between 100 mg/dl to 125 mg/dl is diagnostic of prediabetes. In a patient with classic symptoms of hyperglycemia or hyperglycemic crisis, a random glucose >/= 200 mg/dl is diagnostic for diabetes. In the absence of unequivocal hyperglycemia, results should be confirmed by repeat testing. The classification and Diagnosis of Diabetes Diabetes Care 2021; 46: S19-S40. Current interpretive data was last revised 2022. Calcium 9.2 8.5 - 10.3 mg/dL [facility] Bilirubin, total 0.5 0.1 - 1.2 mg/dL [facility] Protein, pl 6.6 6.5 - 8.5 g/dL [facility] Albumin 4.0 3.5 - 5.0 g/dL [facility] Alk phos 78 40 - 130 Units/L [facility] ALT 20 7 - 45 Units/L [facility] AST 50(H) 10 - 45 Units/L [facility] Blood 10/18/2024 2:10 PM DIRECTOR ADVERTISING 10/18/2024 2:14 PM DIRECTOR ADVERTISING us Chanel Kelley NP LAB BLOOD ORDERABLES Final Result [facility] [place] [address] * ECG 12 lead (10/18/2024 1:57 PM DIRECTOR ADVERTISING) Ventricular Rate EKG/Min 88 BPM [facility] Atrial Rate 88 BPM [facility] [place]-Interval (MSEC) 162 ms [facility] QRS-Interval (MSEC) 112 ms [facility] QT-Interval (MSEC) 402 ms [facility] QTc 486 ms [facility] P [place] 60 degrees [facility] R [place] 69 degrees [facility] T [place] -27 degrees [facility] Diagnosis Normal sinus rhythm Incomplete right bundle branch block ST & T wave abnormality, consider inferior ischemia ST & T wave abnormality, consider anterior ischemia Prolonged QT Abnormal ECG When compared with ECG of 16-OCT-2024 11:26, Right bundle branch block is new Confirmed by MARV GARCIA M.D ([id number]) on 10/18/2024 4:04:39 PM [facility] 10/18/2024 1:57 PM DIRECTOR ADVERTISING 10/18/2024 4:04 PM DIRECTOR ADVERTISING us Chanel Kelley NP ECG ORDERABLES Final Resul t [facility] * TRANSCATHETER TRICUSPID VALVE IMPLANT, INTRACARDIAC ECHOCARDIOGRAM (10/18/2024 1:40 PM DIRECTOR ADVERTISING) Anatomical Region Laterality Modality X-Ray Angiograph y Narrative 10/18/2024 2:46 PM DIRECTOR ADVERTISING Cardiac Catheterization Transcatheter Tricuspid Valve Replacement Name: Stacy Herron Today's Date: 10/18/2024 Primary Care Provider: Praveena Mcfarland MD Referring Provider: Dr Stacy Procedure: 1. ICE 2. Transcatheter tricuspid valve replacement Indications: 1. Severe Tricuspid Regurgitation Type of anesthesia: General. Clinical Profile: Ms. Herron is 79 y.o. female with a history of GERD, HTN, HLD, hypoglycemia, IBS with fecal incontinence (with a [employer]tr[employer] stimulation system in place), COPD who is here with symptoms of severe TR. She was deemed a high risk surgical candidate and was referred for TTVR with EVOQUE after multidisciplinary meeting discussion, Procedure The risks, benefits, complications, treatment options, and expected outcomes were discussed with the patient. The patient and/or family concurred with the proposed plan, giving informed consent. Patient was prepped and draped in the usual sterile fashion Anesthesia was provided by the cardiac anesthesia team. A micropuncture kit was used to obtain access the right and left femoral vein. A 8 Fr sheath was placed in the vein and a 10 Fr in the RFV 2 Percloses were deployed at 90 degrees of each other. A 8 Fr sheath was inserted into the artery and was later upsized to the delivery sheath A Agilis catheter was advanced to the RA and a safari wire was placed in the RV apex The ICE catheter was advanced to the RA The patient was anticoagulated. Serial dilations were performed in the LFV however the dilator would traverse a segment in the iliac vein so a dry seal sheath was advanced and a Lunderquist wire was advanced to the RA The dilator was passed and then the delivery system was advanced.and the Lunderquist wire was removed The 48 m Evoque was advanced to the RA and primary flexion was applied until the system was advanced to the RV Under ICE guidance the valve was positioned and the leaflets were falling into place within the posts. The valve was then deployed and the system removed Protamine was administered. At the conclusion of the case hemostasis was achieved with the proglides as noted previously The venous sheath was removed and hemostasis achieved under manual compression after the administration of protamine. There were no apparent complications. Secondary to the procedural complexity, the knowledge of transcatheter valve replacement and patients multiple comorbidities, Dr Valdez and Dr. Rodgers worked as cosurgeons. Diagnostic Impression 1) Severe tricuspid regurgitation s.p TTVR Plan: Bedrest Diuresis Perioperative antibiotics TTE in AM Transfer to [facility] sharmila Valdez MD supply chain business analyst Co-Construction Equipment Operator of Valvular Heart Disease Cristhian Rodgers MD CV CARDIAC CATH PROCEDURES Fi nal Result * NADINE Guidance During Cardiac Structural Int[place] [id number] (10/18/2024 1:30 PM DIRECTOR ADVERTISING) LV EF % CONS SCIMAGE BSA 1.64 m2 CONS SCIMAGE Anatomical Region Laterality Modality Echocardiography 10/18/2024 11:3 7 AM DIRECTOR ADVERTISING Narrative 10/18/2024 3:47 PM DIRECTOR ADVERTISING [facility] [place] [place] [address] Transesophageal Echocardiographic Report Patient Name: STACY HERRON : 1945 (79y 9m) Gender: F Study Date: 10/18/2024 11:37:56 AM Ht(Inch): Wt(Lb): BSA: Medical Device Assembler: Location: [id number] Order Provider: DEBORAH STACY BMI: Quality: Good Ref Provider: DEBORAH STACY PROCEDURES: Transesophageal Echo Report: [id number] Echocardiography, transesophageal (NADINE) for guidance of a transcatheter intracardiac or great vessel(s) structural intervention(s) including image acquisition, interpretation, and report; Doppler echocardiography, limited pulsed wave and/or continuous wave with spectral display; Doppler echocardiography color flow velocity mapping; 3D echocardiography, rendering with interpretation and reporting, not requiring post-processing on an independent workstation. Performing Physician: Performed by Deborah Stacy M.D. Consent: Informed consent was obtained from the patient in writing. The risks and benefits of the procedure were explained in detail to the patient, including but not limited to the risk of aspiration, dysphagia, and esophageal perforation. After a thorough discussion of these risks and benefits, the patient agreed to proceed. Description: A complete transesophageal echocardiogram was performed in the cardiac catheterization laboratory prior to and during a structural heart interventional procedure. The procedure was performed with the patient intubated and sedated under general anesthesia. The probe was passed by the bottle house quality control technician. Standard views were obtained in the transgastric, mid esophageal, and basal planes using a multiplane transesophageal echo probe. Additional evaluation with color flow Doppler and spectral Doppler was performed. 3D echocardiography was also performed with image acquisition and post-processing of images along with multiplanar reconstrction. INDICATIONS: TTVR and Tricuspid valve disease. FINDINGS: Left Ventricle: Normal Left ventricular size and systolic function. Right Ventricle: Normal right ventricular size and systolic function. Left Atrium: The left atrium is normal in size. The left atrial appendage is normal in appearance with no evidence of thrombus. Right Atrium: Moderately dilated right atrium. Atrial Septum: The interatrial septum is normal in appearance. Mitral Valve: The mitral valve demonstrates normal leaflet morphology. No mitral regurgitation seen. Aortic Valve: Normal appearance and function of the aortic valve. No aortic regurgitation seen. No aortic valve stenosis. Tricuspid Valve: Malcoaptation of TV leaflets. There is severe tricuspid regurgitation. Pulmonic Valve: Normal pulmonic valve appearance. No evidence of pulmonic regurgitation. Pericardium: Normal pericardium with no pericardial effusion. Aorta: Normal aortic root. Other Findings: Structral NADINE performed to guide TTVR: 2D, 3D, and 3DMPR utlized to guide device positioning, placement, and deployment. Severe TR at baseline with no TR noted after valve deployment. 3D Findings: 3D of the tricuspid valve along with intraprocedural guidance with 3DMPR. CONCLUSIONS: 1. Normal Left ventricular size and systolic function. 2. Normal right ventricular size and systolic function. 3. Malcoaptation of TV leaflets. There is severe tricuspid regurgitation. 4. 3D of the tricuspid valve along with intraprocedural guidance with 3DMPR. 5. Structral NADINE performed to guide TTVR: 2D, 3D, and 3DMPR utlized to guide device positioning, placement, and deployment. Severe TR at baseline with no TR noted after valve deployment. ATTESTATION: I have reviewed and interpreted the pertinent images and measurements of this study. I attest to the conclusions in the final report that is provided above. DISCLAIMER: The study images and the final report will be retained in the patient chart by the Echo Laboratory for the legally required time period. This chart constitutes the legal record of any testing performed. Electronically Signed By: Deborah Stacy MD 10/18/2024 3:46:36 PM DIRECTOR ADVERTISING Electronically Signed By: Deborah Stacy MD 10/18/2024 3:46:36 PM DIRECTOR ADVERTISING Procedure Note Deborah Stacy MD - 10/18/2024 [facility] [place] [address] Transesophageal Echocardiographic Report Patient Name: STACY HERRON : 1945 (79y 9m) Gender: F Study Date: 10/18/2024 11:37:56 AM Ht(Inch): Wt(Lb): BSA: Medical Device Assembler: Location: [facility] Order Provider: DEBORAH STACY BMI: Quality: Good Ref Provider: DEBORAH STACY PROCEDURES: Transesophageal Echo Report: [id number] Echocardiography, transesophageal (NADINE)for guidance of a transcatheter intracardiac or great vessel(s) structuralintervention(s) including image acquisition, interpretation, and report; Doppler echocardiography,limited pulsed wave and/or continuous wave with spectral display; Dopplerechocardiography color flow velocity mapping; 3D echocardiography, rendering with interpretation andreporting, not requiring post-processing on an independent workstation. Performing Physician: Performed by Deborah Stacy M.D. Consent: Informed consent was obtained from the patient in writing. Therisks and benefits of the procedure were explained in detail to the patient,including but not limited to the risk of aspiration, dysphagia, and esophageal perforation.After a thorough discussion of these risks and benefits, the patient agreed toproceed. Description: A complete transesophageal echocardiogram was performed inthe cardiac catheterization laboratory prior to and during a structural heartinterventional procedure. The procedure was performed with the patient intubated andsedated under general anesthesia. The probe was passed by the bottle house quality control technician. Standardviews were obtained in the transgastric, mid esophageal, and basal planes using amultiplane transesophageal echo probe. Additional evaluation with color flow Dopplerand spectral Doppler was performed. 3D echocardiography was also performed with imageacquisition and post-processing of images along with multiplanar reconstrction. INDICATIONS: TTVR and Tricuspid valve disease. FINDINGS: Left Ventricle: Normal Left ventricular size and systolic function. Right Ventricle: Normal right ventricular size and systolic function. Left Atrium: The left atrium is normal in size. The left atrial appendageis normal in appearance with no evidence of thrombus. Right Atrium: Moderately dilated right atrium. Atrial Septum: The interatrial septum is normal in appearance. Mitral Valve: The mitral valve demonstrates normal leaflet morphology. Nomitral regurgitation seen. Aortic Valve: Normal appearance and function of the aortic valve. Noaortic regurgitation seen. No aortic valve stenosis. Tricuspid Valve: Malcoaptation of TV leaflets. There is severe tricuspidregurgitation. Pulmonic Valve: Normal pulmonic valve appearance. No evidence of pulmonicregurgitation. Pericardium: Normal pericardium with no pericardial effusion. Aorta: Normal aortic root. Other Findings: Structral NADINE performed to guide TTVR: 2D, 3D, and 3DMPRutlized to guide device positioning, placement, and deployment. Severe TR at baseline withno TR noted after valve deployment. 3D Findings: 3D of the tricuspid valve along with intraprocedural guidancewith 3DMPR. CONCLUSIONS: 1. Normal Left ventricular size and systolic function. 2. Normal right ventricular size and systolic function. 3. Malcoaptation of TV leaflets. There is severe tricuspidregurgitation. 4. 3D of the tricuspid valve along with intraprocedural guidance [id number]. 5. Structral NADINE performed to guide TTVR: 2D, 3D, and 3DMPR utlized toguide device positioning, placement, and deployment. Severe TR at baseline with no TRnoted after valve deployment. ATTESTATION: I have reviewed and interpreted the pertinent images and measurements ofthis study. I attest to the conclusions in the final report that is provided above. DISCLAIMER: The study images and the final report will be retained in the patientchart by the Echo Laboratory for the legally required time period. This chart constitutesthe legal record of any testing performed. Electronically Signed By: Deborah Stacy MD 10/18/2024 3:46:36 PM DIRECTOR ADVERTISING Electronically Signed By: Deborah Stacy MD 10/18/2024 3:46:36 PM DIRECTOR ADVERTISING Deborah Stacy MD CV ECHO PROCEDURES Final Resul t * (ABNORMAL) POCT Activated clotting time, low range (10/18/2024 12:52 PM DIRECTOR ADVERTISING) ACT 316(H) 123 - 168 sec POC Performer [id number] [facility] POC Device Number [id number] [facility] Blood 10/18/2024 12:5 2 PM DIRECTOR ADVERTISING 10/18/2024 12:52 PM DIRECTOR ADVERTISING Cristhian Rodgers MD LAB POCT ORDERABLES - DEVICE Final Result Performing Organization Address [facility] de Phone Number [facility] [place] [address] * (ABNORMAL) POCT Activated clotting time, low range (10/18/2024 12:27 PM DIRECTOR ADVERTISING) ACT 289(H) 123 - 168 sec POC Performer [id number] [facility] POC Device Number [id number] [facility] Blood 10/18/2024 12:2 7 PM DIRECTOR ADVERTISING 10/18/2024 12:27 PM DIRECTOR ADVERTISING Cristhian Rodgers MD LAB POCT ORDERABLES - DEVICE Final Result Performing Organization Address [facility] de Phone Number [facility] [place] [address] * (ABNORMAL) POCT Activated clotting time, low range (10/18/2024 12:19 PM DIRECTOR ADVERTISING) ACT 223(H) 123 - 168 sec POC Performer [id number] [facility] POC Device Number [id number] [facility] Blood 10/18/2024 12:1 9 PM DIRECTOR ADVERTISING 10/18/2024 12:19 PM DIRECTOR ADVERTISING Cristhian Rodgers MD LAB POCT ORDERABLES - DEVICE Final Result Performing Organization Address [facility] Co de Phone Number Critical access hospital [facility] [place] [address] * [place] AN PROCEDURE PLACEHOLDER (10/18/2024 11:32 AM DIRECTOR ADVERTISING) Chanelle Edmonds MD - 10/18/2024 11:32 AM DIRECTOR ADVERTISING Chanelle Doyle MD 10/18/2024 11:32 AM Arterial Line Patient location: OR Indication: continuous blood pressure monitoring and blood sampling needed Staff: Supervising provider: Chanelle Doyle MD Placed by: GAS MAIN FITTER HELPER: Janice Srpinger CRNA Procedure prep: Prep solution: chlorhexadine/alcohol Prep: provider hat/mask Arterial line: Catheter size: 20 gauge Catheter length: 1 and 3/4 inch Catheter type: wire-guided catheter Seldinger technique: yes Laterality: right Site: radial artery Line secured: Tegaderm Results: good waveform Number of attempts: 1 Assessment: Events: patient tolerated procedure well with no complications Chanelle Doyle MD ANESTHESIA ORDERABLES F inal Result * MN AN ELECTIVE ENDOTRACHEAL AIRWAY, [place] AN PROCEDURE PLACEHOLDER (10/18/2024 11:32 AM DIRECTOR ADVERTISING) Chanelle Edmonds MD - 10/18/2024 11:32 AM DIRECTOR ADVERTISING Chanelle Doyle MD 10/18/2024 11:32 AM Airway Patient location: OR Urgency: elective Indications for airway management: anesthesia Difficult airway: no Staff: Supervising provider: Chanelle Doyle MD Emergent airway documentation: Risks and benefits discussed: yes Consent obtained: yes Consent given by: patient Airway prep: Preoxygenated: yes Patient position: sniffing Mask difficulty assessment: 1 - vent by mask Spontaneous ventilation during airway: absent Sedation level during airway: GA Final airway details: Final airway type: endotracheal airway Tube type: ETT ETT size: 7.0 mm Cuffed: yes Technique used for successful ETT placement: video laryngoscopy Insertion site: oral Blade type: Hernandez Video blade type: Alba Blade size: 3 Cormack-Lehane (video): grade I - full view of glottis Cuff inflated with: air ETT to gums: 21 cm Placement verified by: auscultation Airway secured with: silk tape Number of attempts: 1no us Chanelle Doyle MD ANESTHESIA ORDERABLES F inal Result * POCT glucose (10/18/2024 10:42 AM DIRECTOR ADVERTISING) Glucose, POC 99 70 - 199 mg/dL Blood 10/18/2024 10:4 2 AM DIRECTOR ADVERTISING 10/18/2024 10:42 AM DIRECTOR ADVERTISING us Griselda Scruggs MD LAB POCT ORDERABLES - DEVICE Fi nal Result [facility] [place] [address] * Check Sample (10/18/2024 10:40 AM DIRECTOR ADVERTISING) ABO Rh B Positive [facility] OTHER 10/18/2024 10:4 0 AM DIRECTOR ADVERTISING 10/18/2024 10:51 AM DIRECTOR ADVERTISING us Cristhian Rodgers MD LAB BLOOD ORDERABLES Final Re sult [facility] [place] [address] [facility] * Prepare RBC: 4 Units (10/18/2024 10:25 AM DIRECTOR ADVERTISING) Product code [id number] Unit Number [id number] 4-E [facility] Product Blood Type BPOS [facility] Dispense Status RETURNED [facility] Product code [id number] [facility] Unit Number [id number] 3-P [facility] Product Blood Type BPOS [facility] Dispense Status RETURNED [facility] Product code [id number] [facility] Unit Number [id number] 5-P [facility] Product Blood Type BPOS [facility] Dispense Status RETURNED [facility] Product code [id number] [facility] Unit Number [id number] 2-5 [facility] Product Blood Type BPOS [facility] Dispense Status RETURNED [facility] Blood 10/18/2024 10:2 5 AM DIRECTOR ADVERTISING 10/18/2024 10:24 AM DIRECTOR ADVERTISING Narrative [facility] - 10/18/2024 2:34 PM DIRECTOR ADVERTISING Specify Procedure:->transcatheter tricuspic valve implant Are special requirements needed? (All products are leukoreduced and CMV- safe)->No Julieta Gamino NP BLOOD BANK PRODUCT OR DERABLES Final Result Performing Organization Address City/[facility]/[place] Co de Phone Number [facility] [place] [address] * (ABNORMAL) eGFR (10/18/2024 3:48 AM DIRECTOR ADVERTISING) eGFR 45(L) >=60 mL/min/1. 73 m2 Comment: Interpretive Data Reference Interval Normal >/= 90 mL/min/1.73m2 Mildly decreased* 60 - 89 mL/min/1.73m2 Mildly to moderately decreased 45 - 59 mL/min/1.73m2 Moderately to severely decreased 30 - 44 mL/min/1.73m2 Severely decreased 15 - 29 mL/min/1.73m2 Kidney Failure < 15 mL/min/1.73m2 *Relative to young adult level Estimated glomerular filtration rate is determined by the 2020 CKD-EPI equation recommended by the National Kidney Foundation (A Unifying Approach to GFR Estimation: Recommendations of the NKF-ASK Task Force on Reassessing the Inclusion of Race in Diagnosing Kidney Disease, JASN 2020). The CKD-EPI equation should not be used for patients with unstable renal function and has not been validated in children and those over 70. Current interpretive data was last reviewed 2021. Blood 10/18/2024 3:48 AM DIRECTOR ADVERTISING 10/18/2024 4:44 AM DIRECTOR ADVERTISING us Griselda Scruggs MD LAB BLOOD ORDERABLES Final Resu lt Performing Organization Address City/[facility]/ZIP Co de Phone Number [facility] [place] [address] * Differential, auto (10/18/2024 3:48 AM DIRECTOR ADVERTISING) Neutrophil abs 3.1 1.5 - 6.5 K/cumm Imm gran abs 0.0 0.0 - 0.1 K/cumm [facility] Lymphocyte abs 1.5 0.8 - 3.3 K/cumm [facility] Monocyte abs 0.5 0.2 - 0.8 K/cumm [facility] Eosinophil abs 0.1 0.0 - 0.5 K/cumm [facility] Basophil abs 0.0 0.0 - 0.1 K/cumm [facility] Neutrophil pct 59.6 % [facility] Comment: Interpretive Data Percent cell count reference ranges are not reported, since discordance with absolute values may lead to misinterpretation of CBC data. Current Interpretive Data was last revised on 2017. Imm gran pct 0.2 % [facility] Comment: Interpretive Data Percent cell count reference ranges are not reported, since discordance with absolute values may lead to misinterpretation of CBC data. Current Interpretive Data was last revised on 2017. Lymphocyte pct 28.6 % [facility] Comment: Interpretive Data Percent cell count reference ranges are not reported, since discordance with absolute values may lead to misinterpretation of CBC data. Current Interpretive Data was last revised on 2017. Monocyte pct 9.9 % [facility] Comment: Interpretive Data Percent cell count reference ranges are not reported, since discordance with absolute values may lead to misinterpretation of CBC data. Current Interpretive Data was last revised on 2017. Eosinophil pct 1.3 % [facility] Comment: Interpretive Data Percent cell count reference ranges are not reported, since discordance with absolute values may lead to misinterpretation of CBC data. Current Interpretive Data was last revised on 2017. Basophil pct 0.4 % [facility] Comment: Interpretive Data Percent cell count reference ranges are not reported, since discordance with absolute values may lead to misinterpretation of CBC data. Current Interpretive Data was last revised on 2017. Blood 10/18/2024 3:48 AM DIRECTOR ADVERTISING 10/18/2024 4:44 AM DIRECTOR ADVERTISING Grisedla Scruggs MD LAB BLOOD ORDERABLES Final Resu lt Performing Organization Address City/[facility]/ZIP Co de Phone Number [facility] [place] [address] * (ABNORMAL) CBC with auto differential (10/18/2024 3:48 AM DIRECTOR ADVERTISING) WBC 5.3 3.8 - 9.9 K/cumm Hgb 11.9 11.9 - 15.5 g/dL [facility] Hct 35.5(L) 35.6 - 45.5 % [facility] Plt 226 150 - 400 K/cumm [facility] MPV 10.0 9.1 - 12.3 fL [facility] RBC 3.94 3.90 - 5.20 M/cumm [facility] MCV 90.1 81.3 - 96.4 fL [facility] MCH 30.2 27.1 - 33.3 pg [facility] MCHC 33.5 32.3 - 35.7 g/dL [facility] RDW CV 13.7 11.1 - 14.9 % [facility] RDW SD 45.1 35.7 - 48.1 fL [facility] NRBC abs 0.00 0.00 - 0.01 K/cumm [facility] Blood 10/18/2024 3:48 AM DIRECTOR ADVERTISING 10/18/2024 4:44 AM DIRECTOR ADVERTISING Griselda Scruggs MD LAB BLOOD ORDERABLES Final Resu lt [facility] [place] [address] * Protime-INR (10/18/2024 3:48 AM DIRECTOR ADVERTISING) PT 11.6 9.7 - 13.0 sec INR 1.07 0.90 - 1.20 [facility] Comment: Interpretive data Oral anticoagulant therapeutic ranges: Venous thromboembolism prophylaxis or treatment: 2.0-3.0 CARDIOLOGY Standard range: 2.0-3.0 High-intensity range: 2.5-3.5 Refer to indication-specific guidelines for appropriate target ranges for prosthetic heart valve replacement. Current interpretive data was last revised on 2019. Blood 10/18/2024 3:48 AM DIRECTOR ADVERTISING 10/18/2024 4:51 AM DIRECTOR ADVERTISING Griselda Scruggs MD LAB BLOOD ORDERABLES Final Resu lt Performing Organization Address [facility] de Phone Number [facility] [place] [address] * Phosphorus (10/18/2024 3:48 AM DIRECTOR ADVERTISING) Phosphorus, pl 4.3 2.3 - 4.5 mg/dL Blood 10/18/2024 3:48 AM DIRECTOR ADVERTISING 10/18/2024 4:44 AM DIRECTOR ADVERTISING Griselda Scruggs MD LAB BLOOD ORDERABLES Final Resu lt Performing Organization Address [facility] de Phone Number [facility] [place] [address] * Magnesium (10/18/2024 3:48 AM DIRECTOR ADVERTISING) Magnesium 2.0 1.4 - 2.5 mg/dL Blood 10/18/2024 3:48 AM DIRECTOR ADVERTISING 10/18/2024 4:44 AM DIRECTOR ADVERTISING Griselda Scruggs MD LAB BLOOD ORDERABLES Final Resu lt Performing Organization Address [facility] de Phone Number [facility] [place] [address] * (ABNORMAL) Basic metabolic panel (10/18/2024 3:48 AM DIRECTOR ADVERTISING) Sodium 141 135 - 145 mmol/L Potassium, pl 3.7 3.3 - 4.9 mmol/L [facility] Chloride 103 97 - 110 mmol/L [facility] CO2 27 22 - 32 mmol/L [facility] Anion gap 11 2 - 15 mmol/L [facility] BUN 26(H) 6 - 25 mg/dL [facility] Creatinine 1.23(H) 0.60 - 1.10 mg/dL [facility] Glucose 103 70 - 199 mg/dL [facility] Comment: Interpretive Data Fasting glucose >/= 126 mg/dl is diagnostic for diabetes. Fasting is defined as no caloric intake for at least 8 hours. Fasting glucose between 100 mg/dl to 125 mg/dl is diagnostic of prediabetes. In a patient with classic symptoms of hyperglycemia or hyperglycemic crisis, a random glucose >/= 200 mg/dl is diagnostic for diabetes. In the absence of unequivocal hyperglycemia, results should be confirmed by repeat testing. The classification and Diagnosis of Diabetes Diabetes Care 2021; 46: S19-S40. Current interpretive data was last revised 2022. Calcium 9.8 8.5 - 10.3 mg/dL [facility] Blood 10/18/2024 3:48 AM DIRECTOR ADVERTISING 10/18/2024 4:44 AM DIRECTOR ADVERTISING Griselda Scruggs MD LAB BLOOD ORDERABLES Final Resu lt [facility] [place] [address] * eGFR (10/17/2024 4:08 AM DIRECTOR ADVERTISING) eGFR 60 >=60 mL/min/1. 73 m2 Comment: Interpretive Data Reference Interval Normal >/= 90 mL/min/1.73m2 Mildly decreased* 60 - 89 mL/min/1.73m2 Mildly to moderately decreased 45 - 59 mL/min/1.73m2 Moderately to severely decreased 30 - 44 mL/min/1.73m2 Severely decreased 15 - 29 mL/min/1.73m2 Kidney Failure < 15 mL/min/1.73m2 *Relative to young adult level Estimated glomerular filtration rate is determined by the 2020 CKD-EPI equation recommended by the National Kidney Foundation (A Unifying Approach to GFR Estimation: Recommendations of the NKF-ASK Task Force on Reassessing the Inclusion of Race in Diagnosing Kidney Disease, JASN 202). The CKD-EPI equation should not be used for patients with unstable renal function and has not been validated in children and those over 70. Current interpretive data was last reviewed 2021. Blood 10/17/2024 4:08 AM DIRECTOR ADVERTISING 10/17/2024 5:29 AM DIRECTOR ADVERTISING us Griselda Redding MD LAB BLOOD ORDERABLES Final Resul t [facility] [place] [address] * (ABNORMAL) CBC without differential (10/17/2024 4:08 AM DIRECTOR ADVERTISING) WBC 3.5(L) 3.8 - 9.9 K/cumm Hgb 11.6(L) 11.9 - 15.5 g/dL [facility] Hct 34.2(L) 35.6 - 45.5 % [facility] Plt 205 150 - 400 K/cumm [facility] MPV 10.2 9.1 - 12.3 fL [facility] RBC 3.81(L) 3.90 - 5.20 M/cumm [facility] MCV 89.8 81.3 - 96.4 fL [facility] MCH 30.4 27.1 - 33.3 pg [facility] MCHC 33.9 32.3 - 35.7 g/dL [facility] RDW CV 14.0 11.1 - 14.9 % [facility] RDW SD 45.9 35.7 - 48.1 fL [facility] NRBC abs 0.00 0.00 - 0.01 K/cumm [facility] Blood 10/17/2024 4:08 AM DIRECTOR ADVERTISING 10/17/2024 5:30 AM DIRECTOR ADVERTISING us Griselda Redding MD LAB BLOOD ORDERABLES Final Resul t Performing Organization Address [facility]/ZIP Co de Phone Number [facility] [place] [address] * Comprehensive metabolic panel (10/17/2024 4:08 AM DIRECTOR ADVERTISING) Sodium 142 135 - 145 mmol/L Potassium, pl 4.3 3.3 - 4.9 mmol/L [facility] Chloride 108 97 - 110 mmol/L [facility] CO2 27 22 - 32 mmol/L [facility] Anion gap 7 2 - 15 mmol/L [facility] BUN 22 6 - 25 mg/dL [facility] Creatinine 0.97 0.60 - 1.10 mg/dL [facility] Glucose 95 70 - 199 mg/dL [facility] Comment: Interpretive Data Fasting glucose >/= 126 mg/dl is diagnostic for diabetes. Fasting is defined as no caloric intake for at least 8 hours. Fasting glucose between 100 mg/dl to 125 mg/dl is diagnostic of prediabetes. In a patient with classic symptoms of hyperglycemia or hyperglycemic crisis, a random glucose >/= 200 mg/dl is diagnostic for diabetes. In the absence of unequivocal hyperglycemia, results should be confirmed by repeat testing. The classification and Diagnosis of Diabetes Diabetes Care 202; 46: S19-S40. Current interpretive data was last revised 2022. Calcium 9.5 8.5 - 10.3 mg/dL [facility] Bilirubin, total 0.7 0.1 - 1.2 mg/dL [facility] Protein, pl 6.6 6.5 - 8.5 g/dL [facility] Albumin 4.0 3.5 - 5.0 g/dL [facility] Alk phos 81 40 - 130 Units/L [facility] ALT 18 7 - 45 Units/L [facility] AST 20 10 - 45 Units/L [facility] Blood 10/17/2024 4:08 AM DIRECTOR ADVERTISING 10/17/2024 5:29 AM DIRECTOR ADVERTISING Griselda Redding MD LAB BLOOD ORDERABLES Final Resul t Performing Organization Address [facility]/ZIP Co de Phone Number [facility] [place] [address] * TYPE AND SCREEN 14 DAY (10/16/2024 12:11 PM DIRECTOR ADVERTISING) Miguel, indirect Negative ABO Rh B Positive [facility] Blood 10/16/2024 12:1 1 PM DIRECTOR ADVERTISING 10/16/2024 12:52 PM DIRECTOR ADVERTISING Narrative [facility] - 10/16/2024 2:57 PM DIRECTOR ADVERTISING Is this test being ordered in advance for a procedure?->Yes Expected date of procedure:->10/18/24 Has the patient been transfused in the past 3 months?->No Has the patient been in the past 3 months?->No Julieta Gamino NP LAB BLOOD BANK TEST O RDERABLES Final Result [facility] [place] [address] * eGFR (10/16/2024 12:11 PM DIRECTOR ADVERTISING) Pathologist [facility] eGFR 63 >=60 mL/min/1. 73 m2 Comment: Interpretive Data Reference Interval Normal >/= 90 mL/min/1.73m2 Mildly decreased* 60 - 89 mL/min/1.73m2 Mildly to moderately decreased 45 - 59 mL/min/1.73m2 Moderately to severely decreased 30 - 44 mL/min/1.73m2 Severely decreased 15 - 29 mL/min/1.73m2 Kidney Failure < 15 mL/min/1.73m2 *Relative to young adult level Estimated glomerular filtration rate is determined by the 2020 CKD-EPI equation recommended by the National Kidney Foundation (A Unifying Approach to GFR Estimation: Recommendations of the NKF-ASK Task Force on Reassessing the Inclusion of Race in Diagnosing Kidney Disease, JASN 2020). The CKD-EPI equation should not be used for patients with unstable renal function and has not been validated in children and those over 70. Current interpretive data was last reviewed 2021. Blood 10/16/2024 12:1 1 PM DIRECTOR ADVERTISING 10/16/2024 12:53 PM DIRECTOR ADVERTISING us Julieta Gamino NP LAB BLOOD ORDERABLES Final Result [facility] [place] [address] * Differential, auto (10/16/2024 12:11 PM DIRECTOR ADVERTISING) Neutrophil abs 3.5 1.5 - 6.5 K/cumm Imm gran abs 0.0 0.0 - 0.1 K/cumm [facility] Lymphocyte abs 1.6 0.8 - 3.3 K/cumm [facility] Monocyte abs 0.5 0.2 - 0.8 K/cumm [facility] Eosinophil abs 0.1 0.0 - 0.5 K/cumm [facility] Basophil abs 0.0 0.0 - 0.1 K/cumm [facility] Neutrophil pct 60.2 % [facility] Comment: Interpretive Data Percent cell count reference ranges are not reported, since discordance with absolute values may lead to misinterpretation of CBC data. Current Interpretive Data was last revised on 2017. Imm gran pct 0.3 % [facility] Comment: Interpretive Data Percent cell count reference ranges are not reported, since discordance with absolute values may lead to misinterpretation of CBC data. Current Interpretive Data was last revised on 2017. Lymphocyte pct 28.3 % [facility] Comment: Interpretive Data Percent cell count reference ranges are not reported, since discordance with absolute values may lead to misinterpretation of CBC data. Current Interpretive Data was last revised on 2017. Monocyte pct 9.3 % [facility] Comment: Interpretive Data Percent cell count reference ranges are not reported, since discordance with absolute values may lead to misinterpretation of CBC data. Current Interpretive Data was last revised on 2017. Eosinophil pct 1.4 % [facility] Comment: Interpretive Data Percent cell count reference ranges are not reported, since discordance with absolute values may lead to misinterpretation of CBC data. Current Interpretive Data was last revised on 2017. Basophil pct 0.5 % [facility] Comment: Interpretive Data Percent cell count reference ranges are not reported, since discordance with absolute values may lead to misinterpretation of CBC data. Current Interpretive Data was last revised on 2017. Blood 10/16/2024 12:1 1 PM DIRECTOR ADVERTISING 10/16/2024 12:53 PM DIRECTOR ADVERTISING Julieta Gamino LAB BLOOD ORDERABLES Final Result Performing Organization Address [facility] de Phone Number [facility] [place] [address] * CPAP aPTT algorithm (10/16/2024 12:11 PM DIRECTOR ADVERTISING) Pathologist [facility] aPTT 30 28 - 38 sec Comment: Interpretive Data Heparin therapeutic range: 66.0 - 100.0 seconds. Range based on correlation with therapeutic heparin activity range of 0.3 - 0.7 Units/mL. Current interpretive data was last revised on 2023. Blood 10/16/2024 12:1 1 PM DIRECTOR ADVERTISING 10/16/2024 12:11 PM DIRECTOR ADVERTISING Julieta Gamino LAB BLOOD ORDERABLES Final Result Performing Organization Address [facility] [place] [address] * (ABNORMAL) Urinalysis reflex to microscopic and culture Urine, clean voided (10/16/2024 12:11 PM DIRECTOR ADVERTISING) Color, ur Straw Yellow Clarity, ur Clear Clear [facility] Specific gravity, ur 1.014 1.003 - 1.030 [facility] pH, urine 6.5 [facility] Comment: Interpretive Data U rine pH is affected by diet, medications, systemic acid-base disturbances, and renal tubular function. pH may affect urinary stone formation. For example, urine pH below 6.0 may help reduce the tendency for calcium phosphate stones and pH greater than 6.0 may reduce the tendency for uric acid stone formation. Source: [facility] Current Interpretive Data was last revised on 2017 Protein, ur ql Negative Negative [facility] Glucose, ur ql Negative Negative [facility] Ketones, ur Negative Negative [facility] Bilirubin, ur Negative Negative [facility] Blood, ur Negative Negative [facility] Urobilinogen, ur <2.0 <2.0 mg/dL [facility] Nitrite, ur Negative Negative [facility] Leukocyte esterase, ur 1+(A) Negative [facility] UA reflex comment Reflex to microscopic UA will be performed. [facility] Urine, clean voided 10/16/2024 12:11 PM DIRECTOR ADVERTISING 10/16/2024 12:48 PM DIRECTOR ADVERTISING Julieta Gamino BUSINESS INTELLIGENCE DEVELOPER LAB MICROBIOLOGY - NERAL ORDERABLES Final Result [facility] [place] [address] * CBC with auto differential (10/16/2024 12:11 PM DIRECTOR ADVERTISING) WBC 5.8 3.8 - 9.9 K/cumm Hgb 13.3 11.9 - 15.5 g/dL [facility] Hct 40.2 35.6 - 45.5 % [facility] Plt 284 150 - 400 K/cumm [facility] MPV 10.4 9.1 - 12.3 fL [facility] RBC 4.38 3.90 - 5.20 M/cumm [facility] MCV 91.8 81.3 - 96.4 fL [facility] MCH 30.4 27.1 - 33.3 pg [facility] MCHC 33.1 32.3 - 35.7 g/dL [facility] RDW CV 13.8 11.1 - 14.9 % [facility] RDW SD 47.0 35.7 - 48.1 fL [facility] NRBC abs 0.00 0.00 - 0.01 K/cumm [facility] Blood 10/16/2024 12:1 1 PM DIRECTOR ADVERTISING 10/16/2024 12:53 PM DIRECTOR ADVERTISING Julieta Gamino NP LAB BLOOD ORDERABLES Final Result Performing Organization Address [facility] de Phone Number [facility] [place] [address] * (ABNORMAL) Urinalysis, microscopic only (10/16/2024 12:11 PM DIRECTOR ADVERTISING) WBC, ur 6-10(A) 0 - 5 /HPF RBC, ur 0-2 0 - 2 /HPF [facility] Epithelial cells, renal, ur 1-5(A) 0 - 0 /HPF [facility] Mucous, ur Present(A) [facility] Culture Reflex Comment Reflex conditions for urine culture (WBC >10) not met. [facility] Urine, clean voided 10/16/2024 12:11 PM DIRECTOR ADVERTISING 10/16/2024 12:48 PM DIRECTOR ADVERTISING Julieta Gamino LAB URINE ORDERABLES Final Result Performing Organization Address [facility] Phone Number [facility] [place] [address] * Protime-INR (10/16/2024 12:11 PM DIRECTOR ADVERTISING) PT 11.3 9.7 - 13.0 sec INR 1.05 0.90 - 1.20 [facility] Comment: Interpretive data Oral anticoagulant therapeutic ranges: Venous thromboembolism prophylaxis or treatment: 2.0-3.0 CARDIOLOGY Standard range: 2.0-3.0 High-intensity range: 2.5-3.5 Refer to indication-specific guidelines for appropriate target ranges for prosthetic heart valve replacement. Current interpretive data was last revised on 2019. Blood 10/16/2024 12:1 1 PM DIRECTOR ADVERTISING 10/16/2024 12:11 PM DIRECTOR ADVERTISING Julieta Gamino NP LAB BLOOD ORDERABLES Final Result Performing Organization Address [facility]/ZIP Co de Phone Number [facility] [place] [address] * (ABNORMAL) Comprehensive metabolic panel (10/16/2024 12:11 PM DIRECTOR ADVERTISING) Sodium 141 135 - 145 mmol/L Potassium, pl 4.6 3.3 - 4.9 mmol/L [facility] Chloride 100 97 - 110 mmol/L [facility] CO2 29 22 - 32 mmol/L [facility] Anion gap 12 2 - 15 mmol/L [facility] BUN 18 6 - 25 mg/dL [facility] Creatinine 0.93 0.60 - 1.10 mg/dL [facility] Glucose 93 70 - 199 mg/dL [facility] Comment: Interpretive Data Fasting glucose >/= 126 mg/dl is diagnostic for diabetes. Fasting is defined as no caloric intake for at least 8 hours. Fasting glucose between 100 mg/dl to 125 mg/dl is diagnostic of prediabetes. In a patient with classic symptoms of hyperglycemia or hyperglycemic crisis, a random glucose >/= 200 mg/dl is diagnostic for diabetes. In the absence of unequivocal hyperglycemia, results should be confirmed by repeat testing. The classification and Diagnosis of Diabetes Diabetes Care 2021; 46: S19-S40. Current interpretive data was last revised 2022. Calcium 10.6(H) 8.5 - 10.3 mg/dL [facility] Bilirubin, total 0.6 0.1 - 1.2 mg/dL [facility] Protein, pl 7.9 6.5 - 8.5 g/dL [facility] Albumin 4.8 3.5 - 5.0 g/dL [facility] Alk phos 98 40 - 130 Units/L [facility] ALT 23 7 - 45 Units/L [facility] AST 28 10 - 45 Units/L [facility] Blood 10/16/2024 12:1 1 PM DIRECTOR ADVERTISING 10/16/2024 12:53 PM DIRECTOR ADVERTISING Julieta Gamino BUSINESS INTELLIGENCE DEVELOPER LAB BLOOD ORDERABLES Final Result [facility] [place] [address] * ECG 12 lead (10/16/2024 11:26 AM DIRECTOR ADVERTISING) Ventricular Rate EKG/Min 68 BPM [facility] Atrial Rate 68 BPM [facility] [facility] MN-Interval (MSEC) 168 ms [facility] QRS-Interval (MSEC) 76 ms [facility] QT-Interval (MSEC) 398 ms [facility] QTc 423 ms [facility] P [place] 64 degrees [facility] R [place] 43 degrees [facility] T [place] 47 degrees [facility] Diagnosis Normal sinus rhythm Normal ECG When compared with ECG of 11-MAY-2024 08:19, no significant change Confirmed by MARV GARCIA M.D ([id number]) on 10/16/2024 1:39:42 PM [facility] 10/16/2024 11:2 6 AM DIRECTOR ADVERTISING 10/16/2024 1:39 PM DIRECTOR ADVERTISING Julieta Gamino NP ECG ORDERABLES Final Result [facility] * COLONOSCOPY (11/12/2020 12:00 PM DIRECTOR ADVERTISING) Anatomical Region Laterality Modality Other Narrative Procedure Note Paz Mejias MD - 11/12/2020 12:00 PM [facility] Patient Name: Stacy Herron Procedure Date: 11/12/2020 12:00 PM Date of : 1945 Admit Type: Outpatient Age: 75 Gender: Female Attending MD: Brandt Gunter Room: [facility] ENDOSCOPY ROOM 3 Note Status: Finalized Procedure: Colonoscopy Indications: High risk colon cancer surveillance: Personalhistory of colonic polyps, Last colonoscopy: 2015;incidental change in bowel habit. Referring MD: Praveena Mcfarland MD Providers: Paz Mejias M.D. Medicines: Monitored Anesthesia Care Complications: No immediate complications. Estimated Blood Loss: Estimated blood loss was minimal. Procedure: Pre-Anesthesia Assessment: - Prior to the procedure, a History and Physicalwas performed, and patient medications, allergies and sensitivities were reviewed. The patient'stolerance of previous anesthesia was reviewed. - The risks and benefits of the procedure and the sedation options and risks were discussed with the patient. All questions were answered and informed consent was obtained. - Patient identification and proposed procedurewere verified prior to the procedure. - Immediately prior to administration ofmedications, the patient was re-assessed for adequacy to receive sedatives. The benefits, risks and alternatives of theprocedure and sedation were discussed and informed consentwas obtained. All questions were answered. Please referto the signed informed consent document in the medical record. The scope was passed under direct vision.The [id number] endoscope was introduced through the anus and advanced to the terminal ileum. The colonoscopy was performed without difficulty. The patient tolerated the procedure well. The qualityof the bowel preparation was evaluated using the BBPS (Wolford Bowel Preparation Scale) with scores of:Right Colon = 3, Transverse Colon = 3 and Left Colon = 3 (entire mucosa seen well with no residual staining, small fragments of stool or opaque liquid). Thetotal BBPS score equals 9. The bowel preparation used was Miralax and magnesium citrate via split dose instruction. The quality of the bowel preparationwas good. Findings: The digital rectal exam findings include decreased sphincter tone. A 2 mm polyp was found in the transverse colon. The polyp wassessile. The polyp was removed with a jumbo cold forceps. Resection andretrieval were complete. A few small localized angioectasias without bleeding were found inthe ascending colon. The exam was otherwise without abnormality on direct and retroflexion views. Biopsies for histology were taken with a cold forceps from the entire colon for evaluation of microscopic colitis. Impression: - Decreased sphincter tone found on digital rectal exam. - One 2 mm polyp in the transverse colon, removedwith a jumbo cold forceps. Resected and retrieved. - A few non-bleeding colonic angioectasias. - The examination was otherwise normal on directand retroflexion views. - Biopsies were taken with a cold forceps from the entire colon for evaluation of microscopiccolitis. Recommendation: - Discharge patient to home. - Await pathology results. - Repeat colonoscopy in 5-10 years for surveillance based on pathology results. - Return to my office as previously scheduled. - A polyp or polyps were removed during your colonoscopy today. After the pathology result ofthe polyp(s) is reviewed, the doctor who performedyour colonoscopy will recommend follow-up colonoscopy to you based on current guidelines by gastroenterology societies: - If only small hyperplastic polyps from the rectumor sigmoid were removed, repeat the colonoscopy in 10 years. - If 1 or 2 polyps less than 1 cm in size are adenomas, repeat the colonoscopy in 5 years. - If 3 or more polyps are adenomas, repeat the colonoscopy in 3 years. - If there are 10 or more adenomas, repeat the colonoscopy in 1 year. - If any polyp is 10 mm or greater in size, has villous histology or high grade dysplasia,repeat the colonoscopy in 3 years. - If a polyp greater than 2 cm was removed with a piecemeal technique, repeat the colonoscopy in 6 months to be certain that there is no residualpolyp. - Sessile serrated polyps are treated like adenomas for surveillance purposes. Attending Participation: I personally performed the entire procedure. Electronically signed by Paz Mejias MD Paz Mejias M.D. 11/12/2020 12:41:41 PM . Number of Addenda: 0 Note Initiated On: 11/12/2020 12:00 PM Recognized by the [employer] [employer] for promoting quality in endoscopy Paz Mejias MD ENDOSCOPY PROCEDUR ES Final Result from Last 3 Months or Most Recently Relevant to Health Maintenance Insurance MEDICARE [facility] Address: [address] [address] [place] [address] AEST. [facility] SENIOR [facility] MEDICARE [employer] SENIOR SUPPLEMENT [address] [place] [address] MEDICARE AET SENIOR SUPPLEMENT Advance Directives For more information, please contact: [phone] Documents on File Type Date Recorded Patient Tin Dipper Expl anation ADVANCE DIRECTIVE 10/23/2024 2:41 AM POWER OF EAR PULL MACHINE OPERATOR-MEDICAL ADVANCE DIRECTIVE 10/23/2024 2:41 AM LIVING WILL * Full Code (Latest Code Status on File) Date Activated Date Inactivated Comments 10/16/2024 7:43 PM 10/20/2024 6:22 PM * Full Code Date Activated Date Inactivated Comments 06/13/2024 8:07 AM 06/13/2024 2:47 PM * Full Code Date Activated Date Inactivated Comments 05/11/2024 12:09 PM 05/11/2024 8:17 PM * Full Code Date Activated Date Inactivated Comments 11/21/2023 1:35 PM 11/22/2023 4:57 PM * Full Code Date Activated Date Inactivated Comments 11/12/2020 10:37 AM 11/12/2020 5:37 PM Care Teams Warp Knitter Relationship Specialty Start Date End Date Praveena Mcfarland MD [address] [place] [address] PCP - General Internal Medicine 10/11/19 Paul Lopez MD [address] [place] [address] 10/11/19 Paz Mejias MD [address] [facility] [place] [address] [facility] 09/07/22 Hayden Huffman III, MD [address] [facility] [place] [address] Director Reactor Projects Cardiology 12/14/22 Herson Elam MD [address] [place] [address] [place] [address] Surgeon Orthopedic Surgery 11/22/23 Gee Carrasco MD [address] [place] [address] [place] [address] Referring Physician Cardiology 02/29/24 Irasema Valdez MD [address] [place] [address] [address], [place] [address] Director Reactor Projects Cardiology 05/15/24 Cristhian Rodgers MD [id number] [place] [address] Cardiothoracic Surgery 10/20/24 Bill Tovar MD [phone] [place] [address] Surgeon Colon and Rectal Surgery 11/15/24
--- OUTSIDE RECORDS SUMMARY | 2024-11-21 11:55 | XMS_ITS | Encounter Summary ---
Author Organization [facility] Address [address] [place] [address] Care Team Providers Care Auto Former Machine Operator Name Role Phone Praveena Mcfarland MD Primary Care Provider [phone] Hayden Huffman MD Unavailable Unavailabl e Nereyda Kemp MD Unavailable [phone] Cristhian Gonzalez MD Unavailable [phone] Vinnie Barr MD Unavailable [phone] Encounter Details Date Type Department Care Team (Late st Contact Info) Description 10/12/2022 [facility] [address] [place] [id number] Hayden Huffman MD Social History Tobacco Use Types Packs/Day Years [...] on file Sexual Orientation Not on file COVID-19 Exposure Response Date Recorded In the last 10 days, have yo u been in contact with someone who was confirmed or suspected to have Coronavirus/COVID-19? No / Unsure 10/12/2022 10:01 AM DISABILITY SERVICES COORDINATOR documented as of this encounter Plan of Treatment Not on file documented as of this encounter Visit Diagnoses Not on filedocumented in this encounter Care Teams Auto Former Machine Operator Relationship Specialty Start Date End Date Praveena Mcfarland MD [address] [place] [address] PCP - General INTERNAL MEDICINE 06/22/19 Hayden Huffman MD [address] [place] [address] [employer] Marketing Professional CARDIOVASCULAR DISEASE 06/27/19 03/20/24 Nereyda Kemp MD COLON & RECTAL [address] [place] [phone] COLON/RECTAL SURGERY 12/15/22 Cristhian Gonzalez MD [address] [place] [address] Thoracic Surgery (Cardiothoracic Vascular Surgery) 02/27/24 Vinnie Barr MD [address] [place] [phone] Consulting Physician CARDIOVASCULAR DISEASE 03/21/24 documented as of this encounter
--- OUTSIDE RECORDS SUMMARY | 2024-11-21 11:56 | XMS_ITS | Clinical Summary ---
Author Organization [facility] Address [address] [place] [address] Care Team Providers Care Greenhouse Technician Name Role Phone Praveena Mcfarland MD Primary Care Provider Paul Lopez MD Unavailable [phone] Paz Mejias MD Unavailable + Nathanael VALERIO MD, Hayden Singh Unavailable Herson Elam MD Unavailable Gee Carrasco MD Unavailable [phone] Irasema Valdez MD Unavailable [phone] Cristhian Rodgers MD Unavailable Bill Tovar MD Unavailable Allergies Active Allergy Reactions Criticality Noted Date [...] 10/19/2024 Assessment & Plan (10/19/2024 11:13 AM BLOOD TESTER FOWL): - continue Simvastatin - low fat low cholesterol diet S/P tricuspid valve replacement 10/18/2024 Assessment & Plan (10/19/2024 11:09 AM BLOOD TESTER FOWL): S/p TTVR 10/18 with Evoque Remove figure [...] 10/16/2024 Assessment & Plan (10/17/2024 1:57 PM BLOOD TESTER FOWL): Patient with history of symptomatic severe tricuspid regurgitation with class 2- 3 heart failure manifested by dyspnea on exertion who was admitted for elective tricuspid valve implantation - structural cardiology team consulted and following, plan for intervention 1/30 - IV lasix 20mg and milrinone 0.125 prior to procedure - tele - cont home propranolol, lisinopril, simvastatin Dysphagia 05/11/2024 History of esophageal stricture 05/11/2024 Hypertension 05/03/2024 Assessment & Plan (10/18/2024 12:05 PM BLOOD TESTER FOWL): Goal SBP <160 Assessment & Plan (10/17/2024 1:56 PM BLOOD TESTER FOWL): Continue home propranolol, lisinopril Diastolic heart failure 05/03/2024 Assessment & Plan (10/18/2024 2:27 PM BLOOD TESTER FOWL): Acute on chronic Diuresis this admission No plans to restart milrinone post-TTVR Shortness of breath 04/30/2024 Tricuspid regurgitation, non-Ebstein's related 0 02/29/2024 Assessment & Plan (10/18/2024 12:05 PM BLOOD TESTER FOWL): TTVR 10/18 Aftercare following right knee joint replacement surgery 01/06/2024 History of colonic polyps 10/03/2020 Change in bowel habit 02/08/2020 Lactose intolerance 02/08/2020 Incontinence of feces 06/21/2018 Overview (06/21/2018): Added automatically from request for surgery [id number] Fecal incontinence 08/08/2015 Assessment & Plan (10/16/2024 9:24 PM BLOOD TESTER FOWL): 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 status post Medtronic device stimulation - continue home Lomotil GERD (gastroesophageal reflux disease) Assessment & Plan (10/16/2024 9:23 PM BLOOD TESTER FOWL): Continue home PPI Resolved Problems Problem Noted Date Diagnosed Date Resolved Date Primary osteoarthritis of right knee 08/03/2023 01/06/[address] of the abdomen 02/08/2020 0 05/28/2021 Encounters Date Type Department Care Team Description 11/15/2024 3:00 PM BLOOD TESTER FOWL Office Visit [facility] Surgery [address] [place] [address] Medical Office Building [address] [place], [place] [phone] Bill Tovar MD Incontinence of feces, unspecified fecal incontinence type (Primary Dx) 11/14/2024 Telephone [facility] Cardiology [address] [place] [address] [place] [phone] Irasema Valdez MD TAVR follow up 11/12/2024 4:02 PM BLOOD TESTER FOWL - 11/12/2024 11:59 PM BLOOD TESTER FOWL Hospital Encounter [address] [address] S/P tricuspid valve replacement Discharge Disposition: Discharge to home or self care 11/12/2024 4:00 PM BLOOD TESTER FOWL Lab [facility] Endocrinology Metabolism and Lipid [address] [place] [phone] S/P tricuspid valve replacement 11/12/2024 2:30 PM BLOOD TESTER FOWL Office Visit [facility] Cardiology [address] [place] [phone] Shawanda Maurice NP 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] (Primary Dx); S/P tricuspid valve replacement; Primary hypertension; Mixed hyperlipidemia 11/12/2024 12:33 PM BLOOD TESTER FOWL - 11/12/2024 11:59 PM BLOOD TESTER FOWL Hospital Encounter [facility] Cardiac Diagnostic Lab [address] [place] [phone] Tricuspid regurgitation, non-Ebstein's related Discharge Disposition: Discharge to home or self care 11/12/2024 Results Follow-Up [facility] Cardiology [address] [place] [phone] Irasema Valdez MD 11/12/2024 Telephone [facility] Cardiology [address] [facility] Office Building [address] [place] [phone] Carmella Mayorga CMA 11/12/2024 Results Follow-Up [facility] Cardiology [address] [place] [address] [place] [phone] Shawanda Maurice NP 10/30/2024 Telephone [facility] Surgery Chanel Kelley NP 10/25/2024 Telephone [facility] Cardiology [facility] 8th [place] [address] [place] [address] Irasema Valdez MD ppwk 10/23/2024 Telephone [facility] Cardiology [address] [place] [address] Medicine 8th [place] [address] [place] [address] Irasema Valdez MD 10/22/2024 Telephone [facility] Cardiology [address] [place] [address] 8th [place] [address] [place] [address] Irasema Valdez MD 10/22/2024 Telephone [facility] Internal Medicine Chanel Kelley NP 10/22/2024 Telephone [facility] Cardiology [address] [place] [address] 8th [place] [address] [place] [address] Prince Campo MD 10/18/2024 11:07 AM BLOOD TESTER FOWL Anesthesia Event [facility] Electrophysiology Lab [address] [place] [address] Chanelle Doyle MD Harkins, Cherice Lynette, NP 10/18/2024 11:00 AM BLOOD TESTER FOWL - 10/18/2024 2:30 PM BLOOD TESTER FOWL Surgery [facility] Electrophysiology Lab [address] [place] [phone] Irasema Valdez MD Transcatheter Tricuspid Valve Implant (TTVI/TTVR) 10/16/2024 4:44 PM BLOOD TESTER FOWL - 10/20/2024 2:21 PM BLOOD TESTER FOWL Hospital Encounter [address] [phone] Irasema Valdez MD Osman, Ali H., MD Khan, Ali Ayub, MD Kaneko, Tsuyoshi, MD 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] (Primary Dx); Tricuspid regurgitation, non-Ebstein's related; S/P tricuspid valve replacement Discharge Disposition: Discharge to home or self care 10/16/2024 10:30 AM BLOOD TESTER FOWL Pre-Admission Testing [facility] Center for Preoperative Assessment and Planning [facility] ([facility]) [address] [place] [phone] Preoperative testing (Primary Dx); Easy bruising 10/02/2024 Telephone [facility] Cardiology [address] [place] [address] 8th [place] [address] [place] [phone] Irasema Valdez MD 09/24/2024 Telephone [facility] Cardiology [address] [place] [address] 8th [place] [address] [place] [phone] Irasema Valdez MD procedural inquiry from Last 3 Months Surgical History Surgery Date Site/Laterality Comments ANUS SURGERY 09/19/1999 - 09/18/2000 sphincter surgery HYSTERECTOMY 09/19/1980 - 09/18/1981 partial FOOT SURGERY 09/19/2014 - 09/18/2015 Right repair of joint and bunion TRIGGER FINGER RELEASE 09/19/2011 - 09/18/2012 Bilateral 2016 BLADDER SURGERY 09/19/2002 - 09/18/2003 with female repair OTHER SURGICAL HISTORY 08/04/2018 stage 1 interstim SACRAL NERVE STIMULATOR PLACEMENT 12/17/2022 Roya Medical History Medical History Date Comments Hypertension Fecal incontinence Motion sickness Sacral nerve stimulator present 12/17/2022 [employer] Tricuspid regurgitation GERD (gastroesophageal reflux disease) Hyperlipidemia IBS (irritable bowel syndrome) COPD (chronic obstructive pulmonary disease) (HC C) PONV (postoperative nausea and vomiting) Sleep apnea Family History Medical History Relation Name Comments Colon cancer Father Colon polyps Father Deep vein thrombosis Father Deep vein thrombosis Son Anesthesia problems Neg Hx Relation Name Status Comments Father Son Alive Social History Tobacco Use Types Packs/Day Years [...] on file 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:54 AM BLOOD TESTER FOWL Gender Identity Female 02/06/2020 12:07 PM CDT Sexual Orientation Not on file Obstetrics History Last Filed Vital Signs Vital Sign Reading Time Taken Comments Blood Pressure 135/89 11/15/2024 2:43 PM BLOOD TESTER FOWL Pulse 78 11/15/2024 2:43 PM BLOOD TESTER FOWL Temperature 36.4 C (97.5 F) 10/20/2024 9:37 AM BLOOD TESTER FOWL Respiratory Rate 16 10/20/2024 12:36 PM BLOOD TESTER FOWL Oxygen Saturation 98% 11/15/2024 2:43 PM BLOOD TESTER FOWL Inhaled Oxygen Concentration - - Weight 63.5 kg (140 lb) 11/15/2024 2:43 PM BLOOD TESTER FOWL Height 154.9 cm (5' 1 ) 11/15/2024 2:43 PM BLOOD TESTER FOWL Body Mass Index 26.45 11/15/2024 2:43 PM BLOOD TESTER FOWL Plan of Treatment Health Maintenance Due Date Last Done Comments Depression Screening 1945 Hepatitis C Screening 1945 DTaP/Tdap/Td Vaccine (1 - Tdap) 1958 Hepatitis B Screening 1965 Pneumococcal vaccine 65+ (1 of 2 - PCV) 1966 Zoster Vaccine (1 of 2) 1997 Well Visit 65+ 01/12/2012 Osteoporosis Screening-Bone Density Scan 11/10/2018 11/10/2016 Influenza Vaccine (#1) 2024 Fall Risk Assessment 10/20/2025 10/20/2024, 11/11/19 24 Colon Cancer Screening-CT Colonography Discontinued 11/12/2020 Colon Cancer Screening-Colonoscopy Discontinued 11/12/2020 Colon Cancer Screening-DNA Stool Discontinued 11/12/19 Colon Cancer Screening-FIT Discontinued 11/12/2020 Colon Cancer Screening-FOBT Discontinued 11/12/2020 Colon Cancer Screening-Sigmoidoscopy Discontinued 11/12/2020 Colorectal Cancer Screening Discontinued Breast Cancer Screening-Mammogram Discontinued 06/04/2021, 05/29/2020, 04/03/2019, Additional history exists Medical Devices Implanted Type Area Canvas Cutter Hand Device Identifier Shelf Expiration Date Model / Serial / Lot TerOpenRent Medical Ramiro Angio-Seal Vip 6fr Closere Device [id number] - [id number] - [id number] Implanted:Qty: 1 on 05/11/2024 by Irasema Valdez MD at [facility] Collagen Right: Groin [employer] Ramiro 01/01/2025 [id number] / [id number] / [id number] Medtronic Inc Neurostimulator Generator 3058 - [id number] - [id number] Implanted:Qty: 1 on 12/17/2022 by Nereyda Kemp MD at [facility] Other - see comments Left: Buttocks Medtronic Inc 12/31/2022 3058 / [id number] / NA Description:Implant pause pe rformed prior to opening implant to sterile field Medtronic Inc Interstim 28cm Quadripolar Mri Painter And Decorator Neurostimulator [id number] - Sna - [id number] Implanted:Qty: 1 on 12/17/2022 by Nereyda Kemp MD at [facility] Other - see comments Right: Sacrum Medtronic Inc 2024 [id number] / NA / [id number] Description:Implant pause pe rformed prior to opening implant to sterile field [employer] Evoque 48mm Transcatheter Tricuspid Heart Valve [id number] - [id number] - [id number] Implanted:Qty: 1 on 10/18/2024 by Irasema Valdez MD at [facility] Prosthetic Valve N/A: Tricuspid Valve [employer] 10/23/2025 [id number] / [id number] / Stimulator Stimulator Left: Hip Vagus Nerve Stimulator- 3 Implanted: 3 (Quantity not on file) Vagus Nerve Stimulator Left: Hip Medtronic [facility] System Closure Repair Femoral Artery Suture Mediated Perclose Prostyle 97714-86 - [id number] - [id number] Implanted:Qty: 1 on 10/18/2024 by Irasema Valdez MD at [facility] Vascular Closure Device Left: Femoral Vein [employer] 07/19/2026 19779-59 / [id number] / [id number] [employer] Vascular System Closure Repair Femoral Artery Suture Mediated Perclose Prostyle 30471-44 - [id number] - [id number] Implanted:Qty: 1 on 10/18/2024 by Irasema Valdez MD at [facility] Vascular Closure Device Left: Femoral Vein [employer] 07/19/2026 67959-94 / [id number] / [id number] [employer] Cement Bone High Viscosity Gentamicin Radiopaque Single Dose Hemiarthroplpasty Simplex [id number] Pmma 6195-1-010 - [id number] Implanted:Qty: 1 on 11/21/2023 by Herson Elam MD at [facility] Right: Knee [employer] 12/17/2024 6195-1-010 / / [id number] [employer] Cement Bone High Viscosity Gentamicin Radiopaque Single Dose Hemiarthroplpasty Simplex [id number] Pmma 6195-1-010 - [id number] Implanted:Qty: 1 on 11/21/2023 by Herson Elam MD at [facility] Right: Knee [employer] 12/17/2024 6195-1-010 / / [id number] [employer] Inc Attune S+ Cement Fix Bearing Knee 4 Baseplate Tibial [id number] - [id number] Implanted:Qty: 1 on 11/21/2023 by Herson Elam MD at [facility] Right: Knee [employer] Inc 04/18/2033 [id number] / / [id number] [employer] Inc Attune Cemented Posterior Stabilize Knee Right 5 Narrow Component [id number] - [id number] Implanted:Qty: 1 on 11/21/2023 by Herson Elam MD at [facility] Right: Knee [employer] Inc 06/18/2033 [id number] / / [id number] Dep[employer] Orth[employer]ed[employer] Inc Attune 35mm Cemented Medialize Knee Dome Patellar Aox Sterile [id number] - [id number] Implanted:Qty: 1 on 11/21/2023 by Herson Elam MD at [facility] Right: Knee [employer] Inc 04/18/2028 [id number] / / [id number] Dep[employer]ed[employer] Inc Attune 6mm Posterior Stabilize Fix Bearing Knee 5 Insert Tibial [id number] - [id number] Implanted:Qty: 1 on 11/21/2023 by Herson Elam MD at [facility] Right: Knee [employer] Inc 05/19/2028 [id number] / / [id number] Explanted Type Area Canvas Cutter Hand Device Identifier Shelf Expiration Date Model / Serial / Lot Medtronic Neuro 3889-28 Interstim 28cm Quadripolar Lead Neurostimulator - [id number] Implanted:Qty: 1 on 08/04/2018 by Nereyda Kemp MD at [facility] Explanted:Qty: 1 on 12/17/2022 at [facility] N/A: Back Medtronic Neuro 04/27/2022 3889-28 / / [id number] Medtronic Neuro 3058 Interstim Ii 2inx1.7in 4 Electrode Motor Operator Sacral Nerve - [id number] Implanted:Qty: 1 on 08/17/2018 by Nereyda Kemp MD at [facility] Explanted:Qty: 1 on 12/17/2022 by Nereyda Kemp MD at [facility] Medtronic Neuro 11/16/2019 3058 / / Description:Explant disposed of in biohazard waste. Procedures Procedure Name Priority Date/Time Associated Diagnosis Comments PRO B-TYPE NATRIURETIC PEPTIDE Routine 11/12/2024 4:02 PM BLOOD TESTER FOWL S/P tricuspid valve replacement BASIC METABOLIC PANEL Routine 11/12/2024 4:02 PM BLOOD TESTER FOWL S/P tricuspid valve replacement CBC WITHOUT DIFFERENTIAL Routine 11/12/2024 4:02 PM BLOOD TESTER FOWL S/P tricuspid valve replacement ECG 12-LEAD Routine 11/12/2024 2:44 PM BLOOD TESTER FOWL 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] S/P tricuspid valve replacement TRANSTHORACIC ECHO (TTE) COMPLETE W DOPPLER/CF WO CONTRAST Routine 11/12/2024 2:04 PM BLOOD TESTER FOWL Tricuspid regurgitation, non-Ebstein's related ECG 12-LEAD Routine 10/20/2024 5:54 AM BLOOD TESTER FOWL EGFR Routine 10/20/2024 4:35 AM BLOOD TESTER FOWL DIFFERENTIAL AUTO Routine 10/20/2024 4:3 5 AM BLOOD TESTER FOWL BASIC METABOLIC PANEL Routine 10/20/2024 4:35 AM BLOOD TESTER FOWL CBC WITH AUTO DIFFERENTIAL Routine 10/20/2024 4:35 AM BLOOD TESTER FOWL PHOSPHORUS Routine 10/20/2024 4:35 AM BLOOD TESTER FOWL MAGNESIUM Routine 10/20/2024 4:35 AM BLOOD TESTER FOWL TRANSTHORACIC ECHO (TTE) COMPLETE W DOPPLER/CF W CONTRAST Pending Discharge 10/19/2024 5:49 PM BLOOD TESTER FOWL HEPATIC FUNCTION PANEL STAT 10/19/2024 11:50 AM BLOOD TESTER FOWL PROTIME-INR STAT 10/19/2024 11:50 AM BLOOD TESTER FOWL XR CHEST PA LATERAL 2 VIEWS IP Routine 10/19/2024 8:19 AM BLOOD TESTER FOWL ECG 12-LEAD Routine 10/19/2024 4:24 AM BLOOD TESTER FOWL EGFR Routine 10/18/2024 11:26 PM BLOOD TESTER FOWL DIFFERENTIAL AUTO Routine 10/18/2024 11:26 PM BLOOD TESTER FOWL BASIC METABOLIC PANEL Routine 10/18/2024 11:26 PM BLOOD TESTER FOWL CBC WITH AUTO DIFFERENTIAL Routine 10/18/2024 11:26 PM BLOOD TESTER FOWL PHOSPHORUS Routine 10/18/2024 11:26 PM BLOOD TESTER FOWL MAGNESIUM Routine 10/18/2024 11:26 PM BLOOD TESTER FOWL XR CHEST 1 VIEW ED Urgent/IP Urgent 10/18/2024 2:22 PM BLOOD TESTER FOWL EGFR Routine 10/18/2024 2:10 PM BLOOD TESTER FOWL DIFFERENTIAL AUTO Routine 10/18/2024 2:1 0 PM BLOOD TESTER FOWL APTT Routine 10/18/2024 2:10 PM BLOOD TESTER FOWL PROTIME-INR Routine 10/18/2024 2:10 PM BLOOD TESTER FOWL CBC WITH AUTO DIFFERENTIAL Routine 10/18/2024 2:10 PM BLOOD TESTER FOWL COMPREHENSIVE METABOLIC PANEL Routine 10/18/2024 2:10 PM BLOOD TESTER FOWL MAGNESIUM Routine 10/18/2024 2:10 PM BLOOD TESTER FOWL ECG 12-LEAD STAT 10/18/2024 1:57 PM BLOOD TESTER FOWL INTRACARDIAC ECHOCARDIOGRAM Routine 10/18/2024 1:40 PM BLOOD TESTER FOWL Tricuspid regurgitation, non-Ebstein's related TRANSCATHETER TRICUSPID VALVE IMPLANT Routine 10/18/2024 1:40 PM BLOOD TESTER FOWL Tricuspid regurgitation, non-Ebstein's related NADINE GUIDANCE DURING CARDIAC STRUCTURAL INTVN 14187 Routine 10/18/2024 1:30 PM BLOOD TESTER FOWL POCT ACTIVATED CLOTTING TIME, LOW RANGE Routine 10/18/2024 12:52 PM BLOOD TESTER FOWL POCT ACTIVATED CLOTTING TIME, LOW RANGE Routine 10/18/2024 12:27 PM BLOOD TESTER FOWL POCT ACTIVATED CLOTTING TIME, LOW RANGE Routine 10/18/2024 12:19 PM BLOOD TESTER FOWL CO AN PROCEDURE PLACEHOLDER Routine 10/18/2024 11:32 AM BLOOD TESTER FOWL CO AN PROCEDURE PLACEHOLDER Routine 10/18/2024 11:32 AM BLOOD TESTER FOWL CO AN ELECTIVE ENDOTRACHEAL AIRWAY Routine 10/18/2024 11:32 AM BLOOD TESTER FOWL POCT GLUCOSE DEVICE Routine 10/18/2024 10:42 AM BLOOD TESTER FOWL B CHECK SAMPLE STAT 10/18/2024 10:40 AM BLOOD TESTER FOWL PREPARE RBC Timed 10/18/2024 10:25 AM BLOOD TESTER FOWL EGFR Routine 10/18/2024 3:48 AM BLOOD TESTER FOWL DIFFERENTIAL AUTO Routine 10/18/2024 3:4 8 AM BLOOD TESTER FOWL PROTIME-INR Routine 10/18/2024 3:48 AM BLOOD TESTER FOWL CBC WITH AUTO DIFFERENTIAL Routine 10/18/2024 3:48 AM BLOOD TESTER FOWL BASIC METABOLIC PANEL Routine 10/18/2024 3:48 AM BLOOD TESTER FOWL MAGNESIUM Routine 10/18/2024 3:48 AM BLOOD TESTER FOWL PHOSPHORUS Routine 10/18/2024 3:48 AM BLOOD TESTER FOWL EGFR Routine 10/17/2024 4:08 AM BLOOD TESTER FOWL CBC WITHOUT DIFFERENTIAL Routine 10/17/2024 4:08 AM BLOOD TESTER FOWL COMPREHENSIVE METABOLIC PANEL Routine 10/17/2024 4:08 AM BLOOD TESTER FOWL EGFR Routine 10/16/2024 12:11 PM BLOOD TESTER FOWL Preoperative testing URINALYSIS, MICROSCOPIC ONLY Routine 10/16/2024 12:11 PM BLOOD TESTER FOWL Preoperative testing DIFFERENTIAL AUTO Routine 10/16/2024 12:11 PM BLOOD TESTER FOWL Preoperative testing CBC WITH AUTO DIFFERENTIAL Routine 10/16/2024 12:11 PM BLOOD TESTER FOWL Preoperative testing COMPREHENSIVE METABOLIC PANEL Routine 10/16/2024 12:11 PM BLOOD TESTER FOWL Preoperative testing TYPE AND SCREEN 14 DAY Routine 10/16/2024 12:11 PM BLOOD TESTER FOWL Preoperative testing PROTIME-INR Routine 10/16/2024 12:11 PM BLOOD TESTER FOWL Preoperative testing Easy bruising CPAP APTT ALGORITHM Routine 10/16/2024 12:11 PM BLOOD TESTER FOWL Preoperative testing URINALYSIS AND REFLEX TO MICROSCOPIC AND CULTURE Routine 10/16/2024 12:11 PM BLOOD TESTER FOWL Preoperative testing ECG 12-LEAD Routine 10/16/2024 11:26 AM BLOOD TESTER FOWL Preoperative testing COLONOSCOPY 11/12/2020 12:00 PM BLOOD TESTER FOWL from Last 3 Months or Most Recently Relevant to Health Maintenance Results * (ABNORMAL) Pro B-type natriuretic peptide (11/12/2024 4:02 PM BLOOD TESTER FOWL) NT-proBNP 1,758(H) <=450 pg/mL Comment: Interpretive Comments: [...] et.al. Eur Heart J. 2006:27:330-337. 2. Carleen MICHELLE, Amy FRAIRE. J. AM Fariba Cardiol: Cardiovasc Imag. 2009;2: 216- 225. Interpretive Data Last Revised Date: 2018. Blood 11/12/2024 4:02 PM BLOOD TESTER FOWL 11/12/2024 6:34 PM BLOOD TESTER FOWL Shawanda Maurice NP LAB BLOOD ORDERABLES Final R esult [facility] Department [place] [address] * (ABNORMAL) CBC without differential (11/12/2024 4:02 PM BLOOD TESTER FOWL) White Blood Count 4.8 3.6 - 11.2 [...] [facility] Blood 11/12/2024 4:02 PM BLOOD TESTER FOWL 11/12/2024 4:27 PM BLOOD TESTER FOWL Shawanda Maurice NP LAB BLOOD ORDERABLES Final R esult Performing Organization Address [facility] Co de Phone Number [facility] * (ABNORMAL) Basic metabolic panel (11/12/2024 4:02 PM BLOOD TESTER FOWL) Glucose 105(H) 64 - 99 mg/dL [facility] [...] [facility] Blood 11/12/2024 4:02 PM BLOOD TESTER FOWL 11/12/2024 4:27 PM BLOOD TESTER FOWL Shawanda Maurice DAY CARE WORKER LAB BLOOD ORDERABLES Final R esult Performing Organization Address [facility] Co de Phone Number [facility] * ECG 12 lead (11/12/2024 2:44 PM BLOOD TESTER FOWL) Shawanda Maurice DAY CARE WORKER ECG ORDERABLES Edited Resul t - Final * TRANSTHORACIC ECHO (TTE) COMPLETE W DOPPLER/CF WO CONTRAST (11/12/2024 2:04 PM BLOOD TESTER FOWL) LV EF 60-65 % CONS SCIMAGE Anatomical Region Laterality Modality Ultrasound 11/12/2024 12:5 9 PM BLOOD TESTER FOWL Narrative 11/12/2024 2:46 PM BLOOD TESTER FOWL [facility] Cardiac [place] [address] Transthoracic Echocardiographic Report Patient Name: STACY HERRON : 1945 (79y 9m) Gender: F Study Date: 11/12/2024 12:59:37 PM Ht(Inch): 61 Wt(Lb): 136.02 BSA: 1.63 Government Teacher: Shy Kellogg ISAK Location: [facility] Order Provider: IRASEMA VALDEZ Heart Rate: 67 BMI: 25.7 BP: 136 / 84 Quality: The study images were of technically good quality. Ref Provider: IRASEMA VALDEZ PROCEDURES: Echocardiographic Report: ([id number], [id number]) Transthoracic complete echo with strain imaging, 2D, [...] By: Rom Breen M.D. 11/12/2024 2:46:23 PM BLOOD TESTER FOWL Electronically Signed By: Rom Breen M.D. 11/12/2024 2:46:23 PM BLOOD TESTER FOWL Procedure Note Rom Breen MD - 11/12/2024 [facility] Cardiac [place] [address] [place] [address] Transthoracic Echocardiographic Report Patient Name: STACY HERRON : 1945 (79y 9m) Gender: F Study Date: 11/12/2024 12:59:37 PM Ht(Inch): 61 Wt(Lb): 136.02 BSA: 1.63 Government Teacher: Shy Kellogg RDCS Location: [facility] Order Provider:IRASEMA VALDEZ Heart Rate: 67 BMI: 25.7 BP: 136 / 84 Quality: The study images were oftechnically good quality. Ref Provider: IRASEMA VALDEZ PROCEDURES: Echocardiographic Report: ([id number], [id number]) Transthoracic complete echo withstrain imaging, 2D, spectral [...] study completed on 10-19-2024. No change compared [facility] study. ATTESTATION: I have reviewed and [...] By: Rom Breen M.D. 11/12/2024 2:46:23 PM BLOOD TESTER FOWL Electronically Signed By: Rom Breen M.D. 11/12/2024 2:46:23 PM BLOOD TESTER FOWL Irasema Valdez MD CV ECHO PROCEDURES Final Result * ECG 12 lead (10/20/2024 5:54 AM BLOOD TESTER FOWL) [facility] Ventricular Rate EKG/Min 103 BPM [facility] Atrial Rate 103 BPM [facility] CO-Interval (MSEC) 154 ms [facility] QRS-Interval (MSEC) 112 ms [facility] QT-Interval (MSEC) 352 ms [facility] QTc 461 ms [facility] P Garita 49 degrees [facility] R Garita 49 degrees [facility] T Garita -25 degrees [facility] Diagnosis Sinus tachycardia Incomplete right bundle branch block ST & T wave abnormality, consider inferior ischemia ST & T wave abnormality, consider anterolateral ischemia Abnormal ECG Confirmed by Regis CARUSO, Deborah ([id number]) on 10/22/2024 6:39:54 PM [facility] 10/20/2024 5:54 AM BLOOD TESTER FOWL 10/22/2024 6:39 PM BLOOD TESTER FOWL us Chanel Kelley DAY CARE WORKER ECG ORDERABLES Final Resul t [facility] * eGFR (10/20/2024 4:35 AM BLOOD TESTER FOWL) eGFR 69 >=60 mL/min/1. 73 m2 Comment: [...] last reviewed 2021. Blood 10/20/2024 4:35 AM BLOOD TESTER FOWL 10/20/2024 5:15 AM BLOOD TESTER FOWL us Terri Soni NP LAB BLOOD ORDERABLES Final Result [facility] Department [place] [address] * (ABNORMAL) Differential, auto (10/20/2024 4:35 AM BLOOD TESTER FOWL) Neutrophil abs 7.6(H) 1.5 - 6.5 K/cumm Imm gran abs 0.0 0.0 - 0.1 K/cumm [facility] Lymphocyte abs 1.1 0.8 - 3.3 K/cumm [facility] Monocyte abs 0.9(H) 0.2 - 0.8 K/cumm [facility] Eosinophil abs 0.0 0.0 - 0.5 K/cumm [facility] Basophil abs 0.0 0.0 - 0.1 K/cumm [facility] Neutrophil pct 79.0 % [facility] Comment: Interpretive Data Percent cell count reference ranges are not reported, since discordance with absolute values may lead to misinterpretation of CBC data. Current Interpretive Data was last revised on 2017. Imm gran pct 0.4 % [facility] Comment: Interpretive Data Percent cell count reference ranges are not reported, since discordance with absolute values may lead to misinterpretation of CBC data. Current Interpretive Data was last revised on 2017. Lymphocyte pct 10.8 % [facility] Comment: Interpretive Data Percent cell count reference ranges are not reported, since discordance with absolute values may lead to misinterpretation of CBC data. Current Interpretive Data was last revised on 2017. Monocyte pct 9.4 % [facility] Comment: Interpretive Data Percent cell count reference ranges are not reported, since discordance with absolute values may lead to misinterpretation of CBC data. Current Interpretive Data was last revised on 2017. Eosinophil pct 0.2 % [facility] Comment: Interpretive Data Percent cell count reference ranges are not reported, since discordance with absolute values may lead to misinterpretation of CBC data. Current Interpretive Data was last revised on 2017. Basophil pct 0.2 % [facility] Comment: Interpretive Data Percent cell count reference ranges are not reported, since discordance with absolute values may lead to misinterpretation of CBC data. Current Interpretive Data was last revised on 2017. Blood 10/20/2024 4:35 AM BLOOD TESTER FOWL 10/20/2024 5:15 AM BLOOD TESTER FOWL us Terri Soni NP LAB BLOOD ORDERABLES Final Result [facility] Department [place] [address] * (ABNORMAL) CBC with auto differential (10/20/2024 4:35 AM BLOOD TESTER FOWL) [facility] WBC 9.7 3.8 - 9.9 K/cumm Hgb 11.0(L) 11.9 - 15.5 g/dL [facility] Hct 32.5(L) 35.6 - 45.5 % [facility] Plt 139(L) 150 - 400 K/cumm [facility] MPV 10.3 9.1 - 12.3 fL [facility] RBC 3.57(L) 3.90 - 5.20 M/cumm [facility] MCV 91.0 81.3 - 96.4 fL [facility] MCH 30.8 27.1 - 33.3 pg [facility] MCHC 33.8 32.3 - 35.7 g/dL [facility] RDW CV 14.1 11.1 - 14.9 % [facility] RDW SD 47.2 35.7 - 48.1 fL [facility] NRBC abs 0.00 0.00 - 0.01 K/cumm [facility] Blood 10/20/2024 4:35 AM BLOOD TESTER FOWL 10/20/2024 5:15 AM BLOOD TESTER FOWL eTrri Soni DAY CARE WORKER LAB BLOOD ORDERABLES Final Result Performing Organization Address City/[facility] Co de Phone Number [facility] Department [place] [address] * Phosphorus (10/20/2024 4:35 AM BLOOD TESTER FOWL) [facility] Phosphorus, pl 2.8 2.3 - 4.5 mg/dL Blood 10/20/2024 4:35 AM BLOOD TESTER FOWL 10/20/2024 5:15 AM BLOOD TESTER FOWL Terri Soni DAY CARE WORKER LAB BLOOD ORDERABLES Final Result Performing Organization Address [facility] de Phone Number [facility] Department [place] [address] * Magnesium (10/20/2024 4:35 AM BLOOD TESTER FOWL) [facility] Magnesium 1.8 1.4 - 2.5 mg/dL Blood 10/20/2024 4:3 5 AM BLOOD TESTER FOWL 10/20/2024 5:15 AM BLOOD TESTER FOWL Terri Soni DAY CARE WORKER LAB BLOOD ORDERABLES Final Result [facility] Department [place] [address] * Basic metabolic panel (10/20/2024 4:35 AM BLOOD TESTER FOWL) [facility] Sodium 140 135 - 145 mmol/L Potassium, pl 4.0 3.3 - 4.9 mmol/L [facility] Chloride 104 97 - 110 mmol/L [facility] CO2 28 22 - 32 mmol/L [facility] Anion gap 8 2 - 15 mmol/L [facility] BUN 15 6 - 25 mg/dL [facility] Creatinine 0.87 0.60 - 1.10 mg/dL [facility] Glucose 95 70 - 199 mg/dL [facility] Comment: Interpretive Data Fasting glucose >/= 126 [...] 2022. Calcium 8.8 8.5 - 10.3 mg/dL [facility] Blood 10/20/2024 4:35 AM BLOOD TESTER FOWL 10/20/2024 5:15 AM BLOOD TESTER FOWL Terri Soni DAY CARE WORKER LAB BLOOD ORDERABLES Final Result [facility] Department [place] [address] * TRANSTHORACIC ECHO (TTE) COMPLETE W DOPPLER/CF W CONTRAST (10/19/2024 5:49 PM BLOOD TESTER FOWL) LV EF % CONS SCIMAGE Anatomical Region Laterality Modality Ultrasound 10/19/2024 4:43 PM BLOOD TESTER FOWL Narrative 10/22/2024 11:13 AM BLOOD TESTER FOWL [facility] [place] [address] Transthoracic Echocardiographic Report Patient Name: STACY HERRON : 1945 (79y 9m) Gender: F Study Date: 10/19/2024 04:43:04 PM Ht(Inch): 61 Wt(Lb): 134.92 BSA: 1.62 [employer] Teacher: Beth Guajardo [facility] Location: [id number] Order Provider: CHANEL KELLEY BMI: 25.49 BP: 115 / 84 Quality: The study images were of technically good quality. Ref Provider: CHANEL KELLEY PROCEDURES: Echocardiographic Report: ([id number], [id number]) Transthoracic complete echo with strain imaging and [...] [ 1.71 - 5.00 ] PV Accel [place] 763.32 cm/sec2 AoR Diam 2D 2.93 cm [...] By: Bk Castillo MD 10/22/2024 10:57:14 AM BLOOD TESTER FOWL Electronically Signed By: Rom Breen M.D. 10/22/2024 11:12:10 AM BLOOD TESTER FOWL Procedure Note Rom Breen MD - 10/22/2024 [facility] [place] [address] Transthoracic Echocardiographic Report Patient Name: STACY HERRON : 1945 (79y 9m) Gender: F Study Date: 10/19/2024 04:43:04 PM Ht(Inch): 61 Wt(Lb): 134.92 BSA: 1.62 [employer] Teacher: Beth Guajardo [facility] Location: [id number] Order Provider:CHANEL KELLEY BMI: 25.49 BP: 115 / 84 Quality: The study images were oftechnically good quality. Ref Provider: CHANEL KELLEY PROCEDURES: Echocardiographic Report: ([id number], [id number], [id number]) Transthoracic completeecho with strain imaging and contrast, [...] [ 46.00 - 106.00 ] MV Decel Fobj376.72 msec [ 104.00 - 258.00 ] ESV [...] [ 1.71 - 5.00 ] PV Accel Ybvhd420.32 cm/sec2 AoR Diam 2D 2.93 cm [ [...] By: Bk Castillo MD 10/22/2024 10:57:14 AM BLOOD TESTER FOWL Electronically Signed By: Rom Breen M.D. 10/22/2024 11:12:10 AM BLOOD TESTER FOWL us Chanel Kelley NP CV ECHO PROCEDURES Final Re sult * Protime-INR (10/19/2024 11:50 AM BLOOD TESTER FOWL) Pathologist [facility] PT 11.0 9.7 - 13.0 sec INR 1.02 0.90 - 1.20 [facility] Comment: Interpretive data Oral anticoagulant therapeutic ranges: Venous thromboembolism prophylaxis or treatment: 2.0-3.0 CARDIOLOGY Standard range: 2.0-3.0 High-intensity range: 2.5-3.5 Refer to indication-specific guidelines for appropriate target ranges for prosthetic heart valve replacement. Current interpretive data was last revised on 2019. Blood 10/19/2024 11:5 0 AM BLOOD TESTER FOWL 10/19/2024 12:38 PM BLOOD TESTER FOWL Narrative [facility] - 10/19/2024 1:02 PM BLOOD TESTER FOWL Baseline prior to apixaban initiation. us Isaiah Crockett NP LAB BLOOD ORDERABLES Final R esult [facility] Department [place] [address] * (ABNORMAL) Hepatic function panel (10/19/2024 11:50 AM BLOOD TESTER FOWL) Pathologist [facility] Bilirubin, total 0.5 0.1 - 1.2 mg/dL Bilirubin, direct <0.2 0.1 - 0.3 mg/dL [facility] Protein, pl 7.5 6.5 - 8.5 g/dL [facility] Albumin 4.5 3.5 - 5.0 g/dL [facility] Alk phos 95 40 - 130 Units/L [facility] ALT 24 7 - 45 Units/L [facility] AST 55(H) 10 - 45 Units/L [facility] Blood 10/19/2024 11:5 0 AM BLOOD TESTER FOWL 10/19/2024 12:40 PM BLOOD TESTER FOWL Narrative [facility] - 10/19/2024 1:10 PM BLOOD TESTER FOWL Baseline prior to apixaban initiation. us Isaiah Crockett NP LAB BLOOD ORDERABLES Final R esult [facility] Department [place] [address] * XR Chest PA Lateral 2 Views (10/19/2024 8:19 AM BLOOD TESTER FOWL) Anatomical Region Laterality Modality Body, Chest N/A Computed Radiogr aphy 10/19/2024 11:0 9 AM BLOOD TESTER FOWL Impressions 10/19/2024 11:45 AM BLOOD TESTER FOWL Comparison is made to radiograph dated 10/18/2024 [...] Rodrigo Tolentino M.D. Narrative 10/19/2024 11:45 AM BLOOD TESTER FOWL EXAMINATION: 2 view chest radiograph Procedure Note [...] it. Electronically signed by: Rodrigo Tolentino M.D. us Chanel Kelley DAY CARE WORKER IMG XR PROCEDURES Final Res ult * ECG 12 lead (10/19/2024 4:24 AM BLOOD TESTER FOWL) Ventricular Rate EKG/Min 102 BPM [facility] Atrial Rate 102 BPM [facility] CO-Interval (MSEC) 154 ms [facility] QRS-Interval (MSEC) 106 ms [facility] QT-Interval (MSEC) 376 ms [facility] QTc 490 ms [facility] P Garita 50 degrees [facility] R Garita 47 degrees [facility] T Garita -17 degrees [facility] Diagnosis Sinus tachycardia Low voltage QRS Incomplete right bundle branch block ST & T wave abnormality, consider anterior ischemia Abnormal ECG When compared with ECG of 18-OCT-2024 13:57, No significant change was found Confirmed by BENNY ADHIKARI M.D ([id number]) on 10/19/2024 10:23:40 AM [facility] 10/19/2024 4:24 AM BLOOD TESTER FOWL 10/19/2024 10:23 AM BLOOD TESTER FOWL us Chanel Kelley NP ECG ORDERABLES Final Resul t [facility] * eGFR (10/18/2024 11:26 PM BLOOD TESTER FOWL) eGFR 60 >=60 mL/min/1. 73 m2 Comment: [...] reviewed 2021. Blood 10/18/2024 11:2 6 PM BLOOD TESTER FOWL 10/18/2024 11:49 PM BLOOD TESTER FOWL us Terri Soni DAY CARE WORKER LAB BLOOD ORDERABLES Final Result [facility] Department [place] [address] * (ABNORMAL) Differential, auto (10/18/2024 11:26 PM BLOOD TESTER FOWL) Neutrophil abs 7.1(H) 1.5 - 6.5 K/cumm Imm gran abs 0.0 0.0 - 0.1 K/cumm [facility] Lymphocyte abs 0.5(L) 0.8 - 3.3 K/cumm [facility] Monocyte abs 0.4 0.2 - 0.8 K/cumm [facility] Eosinophil abs 0.0 0.0 - 0.5 K/cumm [facility] Basophil abs 0.0 0.0 - 0.1 K/cumm [facility] Neutrophil pct 88.7 % [facility] Comment: Interpretive Data Percent cell count reference ranges are not reported, since discordance with absolute values may lead to misinterpretation of CBC data. Current Interpretive Data was last revised on 2017. Imm gran pct 0.3 % [facility] Comment: Interpretive Data Percent cell count reference ranges are not reported, since discordance with absolute values may lead to misinterpretation of CBC data. Current Interpretive Data was last revised on 2017. Lymphocyte pct 6.4 % [facility] Comment: Interpretive Data Percent cell count reference ranges are not reported, since discordance with absolute values may lead to misinterpretation of CBC data. Current Interpretive Data was last revised on 2017. Monocyte pct 4.6 % [facility] Comment: Interpretive Data Percent cell count reference ranges are not reported, since discordance with absolute values may lead to misinterpretation of CBC data. Current Interpretive Data was last revised on 2017. Eosinophil pct 0.0 % [facility] Comment: Interpretive Data Percent cell count reference ranges are not reported, since discordance with absolute values may lead to misinterpretation of CBC data. Current Interpretive Data was last revised on 2017. Basophil pct 0.0 % [facility] Comment: Interpretive Data Percent cell count reference ranges are not reported, since discordance with absolute values may lead to misinterpretation of CBC data. Current Interpretive Data was last revised on 2017. Blood 10/18/2024 11:2 6 PM BLOOD TESTER FOWL 10/18/2024 11:50 PM BLOOD TESTER FOWL Terri Soni DAY CARE WORKER LAB BLOOD ORDERABLES Final Result Performing Organization Address City/[facility]/ZIP Co de Phone Number [facility] [place] [address] * (ABNORMAL) CBC with auto differential (10/18/2024 11:26 PM BLOOD TESTER FOWL) WBC 8.0 3.8 - 9.9 K/cumm Hgb 11.8(L) 11.9 - 15.5 g/dL [facility] Hct 36.3 35.6 - 45.5 % [facility] Plt 189 150 - 400 K/cumm [facility] MPV 10.0 9.1 - 12.3 fL [facility] RBC 3.96 3.90 - 5.20 M/cumm [facility] MCV 91.7 81.3 - 96.4 fL [facility] MCH 29.8 27.1 - 33.3 pg [facility] MCHC 32.5 32.3 - 35.7 g/dL [facility] RDW CV 13.6 11.1 - 14.9 % [facility] RDW SD 46.4 35.7 - 48.1 fL [facility] NRBC abs 0.00 0.00 - 0.01 K/cumm [facility] Blood 10/18/2024 11:2 6 PM BLOOD TESTER FOWL 10/18/2024 11:50 PM BLOOD TESTER FOWL Terri Soni DAY CARE WORKER LAB BLOOD ORDERABLES Final Result Performing Organization Address City/[facility]/ZIP Co de Phone Number [facility] [place] [address] * Phosphorus (10/18/2024 11:26 PM BLOOD TESTER FOWL) Pathologist [facility] Phosphorus, pl 2.4 2.3 - 4.5 mg/dL Blood 10/18/2024 11:2 6 PM BLOOD TESTER FOWL 10/18/2024 11:49 PM BLOOD TESTER FOWL Terri Soni DAY CARE WORKER LAB BLOOD ORDERABLES Final Result Performing Organization Address City/[facility] de Phone Number [facility] [place] [address] * Magnesium (10/18/2024 11:26 PM BLOOD TESTER FOWL) [facility] Magnesium 1.9 1.4 - 2.5 mg/dL Blood 10/18/2024 11:2 6 PM BLOOD TESTER FOWL 10/18/2024 11:49 PM BLOOD TESTER FOWL Terri Soni DAY CARE WORKER LAB BLOOD ORDERABLES Final Result Performing Organization Address [facility] de Phone Number [facility] [place] [address] * (ABNORMAL) Basic metabolic panel (10/18/2024 11:26 PM BLOOD TESTER FOWL) [facility] Sodium 141 135 - 145 mmol/L Potassium, pl 4.4 3.3 - 4.9 mmol/L [facility] Chloride 105 97 - 110 mmol/L [facility] CO2 23 22 - 32 mmol/L [facility] Anion gap 13 2 - 15 mmol/L [facility] BUN 20 6 - 25 mg/dL [facility] Creatinine 0.97 0.60 - 1.10 mg/dL [facility] Glucose 240(H) 70 - 199 mg/dL [facility] Comment: Interpretive Data Fasting glucose >/= 126 [...] 2022. Calcium 9.5 8.5 - 10.3 mg/dL [facility] Blood 10/18/2024 11:2 6 PM BLOOD TESTER FOWL 10/18/2024 11:49 PM BLOOD TESTER FOWL us Terri Soni NP LAB BLOOD ORDERABLES Final Result [facility] Department [place] [address] * XR Chest 1 view (10/18/2024 2:22 PM BLOOD TESTER FOWL) Anatomical Region Laterality Modality Body, Chest N/A Computed Radiogr aphy 10/18/2024 3:07 PM BLOOD TESTER FOWL Impressions 10/18/2024 4:23 PM BLOOD TESTER FOWL Comparison is made to chest radiograph of 11/09/2023. Transcatheter tricuspid valve replacement. Mild left basilar atelectasis. No pleural effusion. No pulmonary edema. No pneumothorax. Cardiomediastinal silhouette is unchanged. Dictated by: Mikhail Craft M.D. The radiology attending physician has personally reviewed this study, and had reviewed and/or edited this written report and agrees with it. Electronically signed by: Rubina Hernandez M.D. Narrative 10/18/2024 4:23 PM BLOOD TESTER FOWL EXAMINATION: 1 view chest radiograph Procedure Note Rubina Hernandez MD - 10/18/2024 EXAMINATION: 1 view [...] Res ult * eGFR (10/18/2024 2:10 PM BLOOD TESTER FOWL) eGFR 63 >=60 mL/min/1. 73 m2 Comment: [...] last reviewed 2021. Blood 10/18/2024 2:10 PM BLOOD TESTER FOWL 10/18/2024 2:25 PM BLOOD TESTER FOWL Chanel Kelley NP LAB BLOOD ORDERABLES Final Result [facility] Department [place] [address] * Differential, auto (10/18/2024 2:10 PM BLOOD TESTER FOWL) Neutrophil abs 4.8 1.5 - 6.5 K/cumm Imm gran abs 0.0 0.0 - 0.1 K/cumm [facility] Lymphocyte abs 0.8 0.8 - 3.3 K/cumm [facility] Monocyte abs 0.2 0.2 - 0.8 K/cumm [facility] Eosinophil abs 0.0 0.0 - 0.5 K/cumm [facility] Basophil abs 0.0 0.0 - 0.1 K/cumm [facility] Neutrophil pct 81.5 % [facility] Comment: Interpretive Data Percent cell count reference ranges are not reported, since discordance with absolute values may lead to misinterpretation of CBC data. Current Interpretive Data was last revised on 2017. Imm gran pct 0.5 % [facility] Comment: Interpretive Data Percent cell count reference ranges are not reported, since discordance with absolute values may lead to misinterpretation of CBC data. Current Interpretive Data was last revised on 2017. Lymphocyte pct 13.9 % [facility] Comment: Interpretive Data Percent cell count reference ranges are not reported, since discordance with absolute values may lead to misinterpretation of CBC data. Current Interpretive Data was last revised on 2017. Monocyte pct 3.3 % [facility] Comment: Interpretive Data Percent cell count reference ranges are not reported, since discordance with absolute values may lead to misinterpretation of CBC data. Current Interpretive Data was last revised on 2017. Eosinophil pct 0.5 % [facility] Comment: Interpretive Data Percent cell count reference ranges are not reported, since discordance with absolute values may lead to misinterpretation of CBC data. Current Interpretive Data was last revised on 2017. Basophil pct 0.3 % [facility] Comment: Interpretive Data Percent cell count reference ranges are not reported, since discordance with absolute values may lead to misinterpretation of CBC data. Current Interpretive Data was last revised on 2017. Blood 10/18/2024 2:10 PM BLOOD TESTER FOWL 10/18/2024 2:14 PM BLOOD TESTER FOWL us Chanel Kelley NP LAB BLOOD ORDERABLES Final Result [facility] Department [place] [address] * (ABNORMAL) CBC with auto differential (10/18/2024 2:10 PM BLOOD TESTER FOWL) WBC 5.8 3.8 - 9.9 K/cumm Hgb 11.7(L) 11.9 - 15.5 g/dL [facility] Hct 34.6(L) 35.6 - 45.5 % [facility] Plt 202 150 - 400 K/cumm [facility] MPV 9.9 9.1 - 12.3 fL [facility] RBC 3.83(L) 3.90 - 5.20 M/cumm [facility] MCV 90.3 81.3 - 96.4 fL [facility] MCH 30.5 27.1 - 33.3 pg [facility] MCHC 33.8 32.3 - 35.7 g/dL [facility] RDW CV 13.6 11.1 - 14.9 % [facility] RDW SD 45.2 35.7 - 48.1 fL [facility] NRBC abs 0.00 0.00 - 0.01 K/cumm [facility] Blood 10/18/2024 2:10 PM BLOOD TESTER FOWL 10/18/2024 2:14 PM BLOOD TESTER FOWL us Chanel Kelley NP LAB BLOOD ORDERABLES Final Result Performing Organization Address City/[facility]/ZIP Co de Phone Number [facility] [employer] [place] [address] * (ABNORMAL) aPTT (10/18/2024 2:10 PM BLOOD TESTER FOWL) aPTT 66(H) 28 - 38 sec Comment: Interpretive Data Heparin therapeutic range: 66.0 - 100.0 seconds. Range based on correlation with therapeutic heparin activity range of 0.3 - 0.7 Units/mL. Current interpretive data was last revised on 2023. Blood 10/18/2024 2:10 PM BLOOD TESTER FOWL 10/18/2024 2:14 PM BLOOD TESTER FOWL Chanel Kelley NP LAB BLOOD ORDERABLES Final Result [facility] [place] [address] * (ABNORMAL) Protime-INR (10/18/2024 2:10 PM BLOOD TESTER FOWL) [facility] PT 13.1(H) 9.7 - 13.0 sec INR 1.21(H) 0.90 - 1.20 [facility] Comment: Interpretive data Oral anticoagulant therapeutic ranges: Venous thromboembolism prophylaxis or treatment: 2.0-3.0 CARDIOLOGY Standard range: 2.0-3.0 High-intensity range: 2.5-3.5 Refer to indication-specific guidelines for appropriate target ranges for prosthetic heart valve replacement. Current interpretive data was last revised on 2019. Blood 10/18/2024 2:10 PM BLOOD TESTER FOWL 10/18/2024 2:14 PM BLOOD TESTER FOWL Chanel Kelley DAY CARE WORKER LAB BLOOD ORDERABLES Final Result Performing Organization Address [facility] de Phone Number [facility] Department [place] [address] * Magnesium (10/18/2024 2:10 PM BLOOD TESTER FOWL) [facility] Magnesium 1.9 1.4 - 2.5 mg/dL Blood 10/18/2024 2:10 PM BLOOD TESTER FOWL 10/18/2024 2:14 PM BLOOD TESTER FOWL Chanel Kelley NP LAB BLOOD ORDERABLES Final Result Performing Organization Address [facility] de Phone Number [facility] [place] [address] * (ABNORMAL) Comprehensive metabolic panel (10/18/2024 2:10 PM BLOOD TESTER FOWL) [facility] Sodium 142 135 - 145 mmol/L Potassium, pl 4.2 3.3 - 4.9 mmol/L [facility] Chloride 108 97 - 110 mmol/L [facility] CO2 24 22 - 32 mmol/L [facility] Anion gap 10 2 - 15 mmol/L [facility] BUN 20 6 - 25 mg/dL [facility] Creatinine 0.93 0.60 - 1.10 mg/dL [facility] Glucose 123 70 - 199 mg/dL [facility] Comment: Interpretive Data Fasting glucose >/= 126 [...] 2022. Calcium 9.2 8.5 - 10.3 mg/dL [facility] Bilirubin, total 0.5 0.1 - 1.2 mg/dL [facility] Protein, pl 6.6 6.5 - 8.5 g/dL [facility] Albumin 4.0 3.5 - 5.0 g/dL [facility] Alk phos 78 40 - 130 Units/L [facility] ALT 20 7 - 45 Units/L [facility] AST 50(H) 10 - 45 Units/L [facility] Blood 10/18/2024 2:10 PM BLOOD TESTER FOWL 10/18/2024 2:14 PM BLOOD TESTER FOWL us Chanel Kelley NP LAB BLOOD ORDERABLES Final Result [facility] Department [place] [address] * ECG 12 lead (10/18/2024 1:57 PM BLOOD TESTER FOWL) Ventricular Rate EKG/Min 88 BPM [facility] Atrial Rate 88 BPM [facility] CO-Interval (MSEC) 162 ms [facility] QRS-Interval (MSEC) 112 ms [facility] QT-Interval (MSEC) 402 ms [facility] QTc 486 ms [facility] P Garita 60 degrees [facility] R Garita 69 degrees [facility] T Garita -27 degrees [facility] Diagnosis Normal sinus rhythm Incomplete right bundle branch block ST & T wave abnormality, consider inferior ischemia ST & T wave abnormality, consider anterior ischemia Prolonged QT Abnormal ECG When compared with ECG of 16-OCT-2024 11:26, Right bundle branch block is new Confirmed by MARV GARCIA M.D ([id number]) on 10/18/2024 4:04:39 PM [facility] [employer] 10/18/2024 1:57 PM BLOOD TESTER FOWL 10/18/2024 4:04 PM BLOOD TESTER FOWL us Chanel Kelley NP ECG ORDERABLES Final Resul t [facility] [employer] [facility] * TRANSCATHETER TRICUSPID VALVE IMPLANT, INTRACARDIAC ECHOCARDIOGRAM (10/18/2024 1:40 PM BLOOD TESTER FOWL) Anatomical Region Laterality Modality X-Ray Angiograph y Narrative 10/18/2024 2:46 PM BLOOD TESTER FOWL Cardiac Catheterization Transcatheter Tricuspid Valve Replacement Name: [...] Perioperative antibiotics TTE in AM Transfer to [facility] Irasema Valdez MD 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 [employer] Manager of Valvular Heart Disease us Cristhian Rodgers MD CV CARDIAC CATH PROCEDURES Fi nal Result * NADINE Guidance [place] Card[place] [id number] (10/18/2024 1:30 PM BLOOD TESTER FOWL) LV EF % CONS SCIMAGE BSA 1.64 m2 CONS SCIMAGE Anatomical Region Laterality Modality Echocardiography 10/18/2024 11:3 7 AM BLOOD TESTER FOWL Narrative 10/18/2024 3:47 PM BLOOD TESTER FOWL [facility] Cardiac [place] [address] Transesophageal Echocardiographic Report Patient Name: STACY HERRON : 1945 (79y 9m) Gender: F Study Date: 10/18/2024 11:37:56 AM Ht(Inch): Wt(Lb): BSA: Government Teacher: Location: 5637 Order Provider: DEBORAH STACY BMI: Quality: Good Ref Provider: DEBORAH STACY PROCEDURES: Transesophageal Echo Report: [id number] Echocardiography, transesophageal (NADINE) for guidance of a [...] anesthesia. The probe was passed by the winch stripper. Standard views were obtained in the transgastric, [...] By: Deborah Stacy MD 10/18/2024 3:46:36 PM BLOOD TESTER FOWL Electronically Signed By: Deborah Stacy MD 10/18/2024 3:46:36 PM BLOOD TESTER FOWL Procedure Note Deborah Stacy MD - 10/18/2024 [facility] Card[place] [address] [place] [address] Transesophageal Echocardiographic Report Patient Name: STACY HERRON : 1945 (79y 9m) Gender: F Study Date: 10/18/2024 11:37:56 AM Ht(Inch): Wt(Lb): BSA: Government Teacher: Location: 5637 Order Provider: DEBORAH STACY BMI: Quality: Good Ref Provider: DEBORAH STACY PROCEDURES: Transesophageal Echo Report: [id number] Echocardiography, transesophageal (NADINE)for guidance of a transcatheter [...] Description: A complete transesophageal echocardiogram was performed int cardiac catheterization laboratory prior to and during a structural heartinterventional procedure. The procedure was performed with the patient intubated andsedated under general anesthesia. The probe was passed by the winch stripper. Standardviews were obtained in the transgastric, mid [...] the tricuspid valve along with intraprocedural guidance [id number]. 5. Structral NADINE performed to guide TTVR: [...] By: Deborah Stacy MD 10/18/2024 3:46:36 PM BLOOD TESTER FOWL Electronically Signed By: Deborah Stacy MD 10/18/2024 3:46:36 PM BLOOD TESTER FOWL us Deborah Stacy MD CV ECHO PROCEDURES Final Resul t * (ABNORMAL) POCT Activated clotting time, low range (10/18/2024 12:52 PM BLOOD TESTER FOWL) ACT 316(H) 123 - 168 sec POC Performer [id number] [facility] POC Device Number [id number] [facility] Blood 10/18/2024 12:5 2 PM BLOOD TESTER FOWL 10/18/2024 12:52 PM BLOOD TESTER FOWL Cristhian Rodgers MD LAB POCT ORDERABLES - DEVICE Final Result Performing Organization Address [facility]/ZIP Co de Phone Number [facility] [place] [address] * (ABNORMAL) POCT Activated clotting time, low range (10/18/2024 12:27 PM BLOOD TESTER FOWL) ACT 289(H) 123 - 168 sec POC Performer [id number] [facility] POC Device Number [id number] [facility] Blood 10/18/2024 12:2 7 PM BLOOD TESTER FOWL 10/18/2024 12:27 PM BLOOD TESTER FOWL Cristhian Rodgers MD LAB POCT ORDERABLES - DEVICE Final Result Performing Organization Address [facility] Co de Phone Number [facility] [place] [address] * (ABNORMAL) POCT Activated clotting time, low range (10/18/2024 12:19 PM BLOOD TESTER FOWL) ACT 223(H) 123 - 168 sec POC Performer [id number] [facility] POC Device Number [id number] [facility] Blood 10/18/2024 12:1 9 PM BLOOD TESTER FOWL 10/18/2024 12:19 PM BLOOD TESTER FOWL Cristhian Rodgers MD LAB POCT ORDERABLES - DEVICE Final Result Performing Organization Address City/[facility]/ZIP Co de Phone Number [facility] [place] [address] * CO AN PROCEDURE PLACEHOLDER (10/18/2024 11:32 AM BLOOD TESTER FOWL) Chanelle Edmonds MD - 10/18/2024 11:32 AM BLOOD TESTER FOWL Chanelle Doyle MD 10/18/2024 11:32 AM Arterial Line Patient location: OR Indication: continuous blood pressure monitoring and blood sampling needed Staff: Supervising provider: Chanelle Doyle MD Placed by: REFORMATORY ATTENDANT: Janice Springer CRNA Procedure prep: Prep solution: chlorhexadine/alcohol Prep: provider hat/mask Arterial line: Catheter size: 20 gauge Catheter length: 1 and 3/4 inch Catheter type: wire-guided catheter Seldinger technique: yes Laterality: right Site: radial artery Line secured: Tegaderm Results: good waveform Number of attempts: 1 Assessment: Events: patient tolerated procedure well with no complications us Chanelle Doyle MD ANESTHESIA ORDERABLES F inal Result * CO AN ELECTIVE ENDOTRACHEAL AIRWAY, CO AN PROCEDURE PLACEHOLDER (10/18/2024 11:32 AM BLOOD TESTER FOWL) Chanelle Edmonds MD - 10/18/2024 11:32 AM BLOOD TESTER FOWL Chanelle Doyle MD 10/18/2024 11:32 AM Airway [...] Result * POCT glucose (10/18/2024 10:42 AM BLOOD TESTER FOWL) Glucose, POC 99 70 - 199 mg/dL Blood 10/18/2024 10:4 2 AM BLOOD TESTER FOWL 10/18/2024 10:42 AM BLOOD TESTER FOWL us Griselda Scruggs MD LAB POCT ORDERABLES - DEVICE Fi nal Result Performing Organization Address City/[facility]/ZIP Co de Phone Number [facility] Department [place] [address] * Check Sample (10/18/2024 10:40 AM BLOOD TESTER FOWL) ABO Rh B Positive [facility] OTHER 10/18/2024 10:4 0 AM BLOOD TESTER FOWL 10/18/2024 10:51 AM BLOOD TESTER FOWL us Cristhian Rodgers MD LAB BLOOD ORDERABLES Final Re sult Performing Organization Address [facility] Co de Phone Number [facility] Department [place] [address] [facility] * Prepare RBC: 4 Units (10/18/2024 10:25 AM BLOOD TESTER FOWL) Product code [id number] Unit Number [id number] 4-E CERNER [facility] Product Blood Type BPOS [facility] Dispense Status RETURNED [facility]ER [facility] Product code [id number] [facility]ER [facility] Unit Number [id number] 3-P [facility] Product Blood Type BPOS [facility] Dispense Status RETURNED [facility] Product code [id number] [facility] Unit Number [id number] 5-P [facility] Product Blood Type BPOS [facility] Dispense Status RETURNED [facility] Product code [id number] [facility] Unit Number [id number] 2-5 [facility] Product Blood Type BPOS [facility] Dispense Status RETURNED CERNER [facility] Blood 10/18/2024 10:2 5 AM BLOOD TESTER FOWL 10/18/2024 10:24 AM BLOOD TESTER FOWL Narrative [facility] - 10/18/2024 2:34 PM BLOOD TESTER FOWL Specify Procedure:->transcatheter tricuspic valve implant Are special requirements needed? (All products are leukoreduced and CMV- safe)->No Julieta Gamino DAY CARE WORKER BLOOD BANK PRODUCT OR DERABLES Final Result Performing Organization Address [facility] Co de Phone Number [facility] Department [place] [address] * (ABNORMAL) eGFR (10/18/2024 3:48 AM BLOOD TESTER FOWL) Pathologist [facility] eGFR 45(L) >=60 mL/min/1. 73 m2 Comment: [...] last reviewed 2021. Blood 10/18/2024 3:48 AM BLOOD TESTER FOWL 10/18/2024 4:44 AM BLOOD TESTER FOWL Griselda Scruggs MD LAB BLOOD ORDERABLES Final Resu lt Performing Organization Address [facility] Co de Phone Number [facility] Department [place] [address] * Differential, auto (10/18/2024 3:48 AM BLOOD TESTER FOWL) Neutrophil abs 3.1 1.5 - 6.5 K/cumm Imm gran abs 0.0 0.0 - 0.1 K/cumm [facility] Lymphocyte abs 1.5 0.8 - 3.3 K/cumm [facility] Monocyte abs 0.5 0.2 - 0.8 K/cumm [facility] Eosinophil abs 0.1 0.0 - 0.5 K/cumm [facility] Basophil abs 0.0 0.0 - 0.1 K/cumm [facility] Neutrophil pct 59.6 % [facility] Comment: Interpretive Data Percent cell count reference ranges are not reported, since discordance with absolute values may lead to misinterpretation of CBC data. Current Interpretive Data was last revised on 2017. Imm gran pct 0.2 % [facility] Comment: Interpretive Data Percent cell count reference ranges are not reported, since discordance with absolute values may lead to misinterpretation of CBC data. Current Interpretive Data was last revised on 2017. Lymphocyte pct 28.6 % [facility] Comment: Interpretive Data Percent cell count reference ranges are not reported, since discordance with absolute values may lead to misinterpretation of CBC data. Current Interpretive Data was last revised on 2017. Monocyte pct 9.9 % [facility] Comment: Interpretive Data Percent cell count reference ranges are not reported, since discordance with absolute values may lead to misinterpretation of CBC data. Current Interpretive Data was last revised on 2017. Eosinophil pct 1.3 % [facility] Comment: Interpretive Data Percent cell count reference ranges are not reported, since discordance with absolute values may lead to misinterpretation of CBC data. Current Interpretive Data was last revised on 2017. Basophil pct 0.4 % [facility] Comment: Interpretive Data Percent cell count reference ranges are not reported, since discordance with absolute values may lead to misinterpretation of CBC data. Current Interpretive Data was last revised on 2017. Blood 10/18/2024 3:48 AM BLOOD TESTER FOWL 10/18/2024 4:44 AM BLOOD TESTER FOWL Griselda Scruggs MD LAB BLOOD ORDERABLES Final Resu lt Performing Organization Address [facility] Co de Phone Number [facility] Department [place] [address] * (ABNORMAL) CBC with auto differential (10/18/2024 3:48 AM BLOOD TESTER FOWL) [facility] WBC 5.3 3.8 - 9.9 K/cumm Hgb 11.9 11.9 - 15.5 g/dL [facility] Hct 35.5(L) 35.6 - 45.5 % [facility] Plt 226 150 - 400 K/cumm [facility] MPV 10.0 9.1 - 12.3 fL [facility] RBC 3.94 3.90 - 5.20 M/cumm [facility] MCV 90.1 81.3 - 96.4 fL [facility] MCH 30.2 27.1 - 33.3 pg [facility] MCHC 33.5 32.3 - 35.7 g/dL [facility] RDW CV 13.7 11.1 - 14.9 % [facility] RDW SD 45.1 35.7 - 48.1 fL [facility] NRBC abs 0.00 0.00 - 0.01 K/cumm [facility] Blood 10/18/2024 3:48 AM BLOOD TESTER FOWL 10/18/2024 4:44 AM BLOOD TESTER FOWL Griselda Scruggs MD LAB BLOOD ORDERABLES Final Resu Performing Organization Address [facility] Co de Phone Number [facility] Department [place] [address] * Protime-INR (10/18/2024 3:48 AM BLOOD TESTER FOWL) [facility] PT 11.6 9.7 - 13.0 sec INR 1.07 0.90 - 1.20 [facility] Comment: Interpretive data Oral anticoagulant therapeutic ranges: Venous thromboembolism prophylaxis or treatment: 2.0-3.0 CARDIOLOGY Standard range: 2.0-3.0 High-intensity range: 2.5-3.5 Refer to indication-specific guidelines for appropriate target ranges for prosthetic heart valve replacement. Current interpretive data was last revised on 2019. Blood 10/18/2024 3:48 AM BLOOD TESTER FOWL 10/18/2024 4:51 AM BLOOD TESTER FOWL Griselda Scruggs MD LAB BLOOD ORDERABLES Final Resu lt Performing Organization Address [facility] Co de Phone Number [facility] [employer] [address] * Phosphorus (10/18/2024 3:48 AM BLOOD TESTER FOWL) Pathologist [facility] Phosphorus, pl 4.3 2.3 - 4.5 mg/dL Blood 10/18/2024 3:48 AM BLOOD TESTER FOWL 10/18/2024 4:44 AM BLOOD TESTER FOWL Griselda Srcuggs MD LAB BLOOD ORDERABLES Final Resu lt Performing Organization Address [facility] de Phone Number [facility] [place] [place] [address] * Magnesium (10/18/2024 3:48 AM BLOOD TESTER FOWL) Pathologist [facility] Magnesium 2.0 1.4 - 2.5 mg/dL Blood 10/18/2024 3:48 AM BLOOD TESTER FOWL 10/18/2024 4:44 AM BLOOD TESTER FOWL Griselda Scruggs MD LAB BLOOD ORDERABLES Final Resu lt Performing Organization Address [facility] de Phone Number [facility] [place] [place] [address] * (ABNORMAL) Basic metabolic panel (10/18/2024 3:48 AM BLOOD TESTER FOWL) Pathologist [facility] Sodium 141 135 - 145 mmol/L Potassium, pl 3.7 3.3 - 4.9 mmol/L [facility] Chloride 103 97 - 110 mmol/L [facility] CO2 27 22 - 32 mmol/L [facility] Anion gap 11 2 - 15 mmol/L [facility] BUN 26(H) 6 - 25 mg/dL [facility] Creatinine 1.23(H) 0.60 - 1.10 mg/dL [facility] Glucose 103 70 - 199 mg/dL [facility] Comment: Interpretive Data Fasting glucose >/= 126 [...] 2022. Calcium 9.8 8.5 - 10.3 mg/dL [facility] Blood 10/18/2024 3:48 AM BLOOD TESTER FOWL 10/18/2024 4:44 AM BLOOD TESTER FOWL us Griselda Scruggs MD LAB BLOOD ORDERABLES Final Resu lt [facility] Department [place] [address] * eGFR (10/17/2024 4:08 AM BLOOD TESTER FOWL) eGFR 60 >=60 mL/min/1. 73 m2 Comment: [...] last reviewed 2021. Blood 10/17/2024 4:08 AM BLOOD TESTER FOWL 10/17/2024 5:29 AM BLOOD TESTER FOWL Griselda Redding MD LAB BLOOD ORDERABLES Final Resul t Performing Organization Address City/[facility] Co de Phone Number [facility] Department [place] [address] * (ABNORMAL) CBC without differential (10/17/2024 4:08 AM BLOOD TESTER FOWL) WBC 3.5(L) 3.8 - 9.9 K/cumm Hgb 11.6(L) 11.9 - 15.5 g/dL [facility] Hct 34.2(L) 35.6 - 45.5 % [facility] Plt 205 150 - 400 K/cumm [facility] MPV 10.2 9.1 - 12.3 fL [facility] RBC 3.81(L) 3.90 - 5.20 M/cumm [facility] MCV 89.8 81.3 - 96.4 fL [facility] MCH 30.4 27.1 - 33.3 pg [facility] MCHC 33.9 32.3 - 35.7 g/dL [facility] RDW CV 14.0 11.1 - 14.9 % [facility] RDW SD 45.9 35.7 - 48.1 fL [facility] NRBC abs 0.00 0.00 - 0.01 K/cumm [facility] Blood 10/17/2024 4:08 AM BLOOD TESTER FOWL 10/17/2024 5:30 AM BLOOD TESTER FOWL Griselda Redding MD LAB BLOOD ORDERABLES Final Resul t Performing Organization Address City/[facility]/ZIP Co de Phone Number [facility] Department [place] [address] * Comprehensive metabolic panel (10/17/2024 4:08 AM BLOOD TESTER FOWL) Sodium 142 135 - 145 mmol/L Potassium, pl 4.3 3.3 - 4.9 mmol/L [facility] Chloride 108 97 - 110 mmol/L [facility] CO2 27 22 - 32 mmol/L [facility] Anion gap 7 2 - 15 mmol/L [facility] BUN 22 6 - 25 mg/dL [facility] Creatinine 0.97 0.60 - 1.10 mg/dL [facility] Glucose 95 70 - 199 mg/dL [facility] Comment: Interpretive Data Fasting glucose >/= 126 [...] 2022. Calcium 9.5 8.5 - 10.3 mg/dL [facility] Bilirubin, total 0.7 0.1 - 1.2 mg/dL [facility] Protein, pl 6.6 6.5 - 8.5 g/dL [facility] Albumin 4.0 3.5 - 5.0 g/dL [facility] Alk phos 81 40 - 130 Units/L [facility] ALT 18 7 - 45 Units/L [facility] AST 20 10 - 45 Units/L [facility] Blood 10/17/2024 4:08 AM BLOOD TESTER FOWL 10/17/2024 5:29 AM BLOOD TESTER FOWL us Griselda Redding MD LAB BLOOD ORDERABLES Final Resul t [facility] Department [place] [address] * TYPE AND SCREEN 14 DAY (10/16/2024 12:11 PM BLOOD TESTER FOWL) Miguel, indirect Negative ABO Rh B Positive [facility] Blood 10/16/2024 12:1 1 PM BLOOD TESTER FOWL 10/16/2024 12:52 PM BLOOD TESTER FOWL Narrative MARTHA CHO - 10/16/2024 2:57 PM BLOOD TESTER FOWL Is this test being ordered in advance for a procedure?->Yes Expected date of procedure:->10/18/24 Has the patient been transfused in the past 3 months?->No Has the patient been in the past 3 months?->No Julieta Gamino NP LAB BLOOD BANK TEST O RDERABLES Final Result Performing Organization Address City/[facility] Co de Phone Number [facility] Department [place] [address] * eGFR (10/16/2024 12:11 PM BLOOD TESTER FOWL) eGFR 63 >=60 mL/min/1. 73 m2 Comment: [...] reviewed 2021. Blood 10/16/2024 12:1 1 PM BLOOD TESTER FOWL 10/16/2024 12:53 PM BLOOD TESTER FOWL Julieta Gamino NP LAB BLOOD ORDERABLES Final Result MARTHA [facility] Department [place] [address] * Differential, auto (10/16/2024 12:11 PM BLOOD TESTER FOWL) Neutrophil abs 3.5 1.5 - 6.5 K/cumm Imm gran abs 0.0 0.0 - 0.1 K/cumm [facility] Lymphocyte abs 1.6 0.8 - 3.3 K/cumm [facility] Monocyte abs 0.5 0.2 - 0.8 K/cumm [facility] Eosinophil abs 0.1 0.0 - 0.5 K/cumm [facility] Basophil abs 0.0 0.0 - 0.1 K/cumm [facility] Neutrophil pct 60.2 % [facility] Comment: Interpretive Data Percent cell count reference ranges are not reported, since discordance with absolute values may lead to misinterpretation of CBC data. Current Interpretive Data was last revised on 2017. Imm gran pct 0.3 % [facility] Comment: Interpretive Data Percent cell count reference ranges are not reported, since discordance with absolute values may lead to misinterpretation of CBC data. Current Interpretive Data was last revised on 2017. Lymphocyte pct 28.3 % [facility] Comment: Interpretive Data Percent cell count reference ranges are not reported, since discordance with absolute values may lead to misinterpretation of CBC data. Current Interpretive Data was last revised on 2017. Monocyte pct 9.3 % [facility] Comment: Interpretive Data Percent cell count reference ranges are not reported, since discordance with absolute values may lead to misinterpretation of CBC data. Current Interpretive Data was last revised on 2017. Eosinophil pct 1.4 % [facility] Comment: Interpretive Data Percent cell count reference ranges are not reported, since discordance with absolute values may lead to misinterpretation of CBC data. Current Interpretive Data was last revised on 2017. Basophil pct 0.5 % [facility] Comment: Interpretive Data Percent cell count reference ranges are not reported, since discordance with absolute values may lead to misinterpretation of CBC data. Current Interpretive Data was last revised on 2017. Blood 10/16/2024 12:1 1 PM BLOOD TESTER FOWL 10/16/2024 12:53 PM BLOOD TESTER FOWL Julieta Gamino DAY CARE WORKER LAB BLOOD ORDERABLES Final Result Performing Organization Address [facility] [place] [address] * CPAP aPTT algorithm (10/16/2024 12:11 PM BLOOD TESTER FOWL) aPTT 30 28 - 38 sec Comment: Interpretive Data Heparin therapeutic range: 66.0 - 100.0 seconds. Range based on correlation with therapeutic heparin activity range of 0.3 - 0.7 Units/mL. Current interpretive data was last revised on 2023. Blood 10/16/2024 12:1 1 PM BLOOD TESTER FOWL 10/16/2024 12:11 PM BLOOD TESTER FOWL Julieta Gamino DAY CARE WORKER LAB BLOOD ORDERABLES Final Result Performing Organization Address [facility] de Phone Number [facility] [place] [address] * (ABNORMAL) Urinalysis reflex to microscopic and culture Urine, clean voided (10/16/2024 12:11 PM BLOOD TESTER FOWL) Color, ur Straw Yellow Clarity, ur Clear Clear [facility] Specific gravity, ur 1.014 1.003 - 1.030 [facility] pH, urine 6.5 [facility] Comment: Interpretive Data U rine pH is affected by diet, medications, systemic acid-base disturbances, and renal tubular function. pH may affect urinary stone formation. For example, urine pH below 6.0 may help reduce the tendency for calcium phosphate stones and pH greater than 6.0 may reduce the tendency for uric acid stone formation. Source: [facility] [employer] Current Interpretive Data was last revised on 2017 Protein, ur ql Negative Negative [facility] Glucose, ur ql Negative Negative [facility] Ketones, ur Negative Negative [facility] Bilirubin, ur Negative Negative [facility] Blood, ur Negative Negative [facility] Urobilinogen, ur <2.0 <2.0 mg/dL [facility] Nitrite, ur Negative Negative [facility] Leukocyte esterase, ur 1+(A) Negative [facility] UA reflex comment Reflex to microscopic UA will be performed. [facility] Urine, clean voided 10/16/2024 12:11 PM BLOOD TESTER FOWL 10/16/2024 12:48 PM BLOOD TESTER FOWL Julieta Gamino DAY CARE WORKER LAB MICROBIOLOGY - NERAL ORDERABLES Final Result [facility] Department [place] [address] * CBC with auto differential (10/16/2024 12:11 PM BLOOD TESTER FOWL) WBC 5.8 3.8 - 9.9 K/cumm Hgb 13.3 11.9 - 15.5 g/dL [facility] Hct 40.2 35.6 - 45.5 % [facility] Plt 284 150 - 400 K/cumm [facility] MPV 10.4 9.1 - 12.3 fL [facility] RBC 4.38 3.90 - 5.20 M/cumm [facility] MCV 91.8 81.3 - 96.4 fL [facility] MCH 30.4 27.1 - 33.3 pg [facility] MCHC 33.1 32.3 - 35.7 g/dL [facility] RDW CV 13.8 11.1 - 14.9 % [facility] RDW SD 47.0 35.7 - 48.1 fL [facility] NRBC abs 0.00 0.00 - 0.01 K/cumm [facility] Blood 10/16/2024 12:1 1 PM BLOOD TESTER FOWL 10/16/2024 12:53 PM BLOOD TESTER FOWL Julieta Gamino DAY CARE WORKER LAB BLOOD ORDERABLES Final Result [facility] [place] [address] * (ABNORMAL) Urinalysis, microscopic only (10/16/2024 12:11 PM BLOOD TESTER FOWL) WBC, ur 6-10(A) 0 - 5 /HPF RBC, ur 0-2 0 - 2 /HPF [facility] Epithelial cells, renal, ur 1-5(A) 0 - 0 /HPF [facility] Mucous, ur Present(A) [facility] Culture Reflex Comment Reflex conditions for urine culture (WBC >10) not met. [facility] Urine, clean voided 10/16/2024 12:11 PM BLOOD TESTER FOWL 10/16/2024 12:48 PM BLOOD TESTER FOWL Julieta Gamino DAY CARE WORKER LAB URINE ORDERABLES Final Result Performing Organization Address [facility] [place] [address] * Protime-INR (10/16/2024 12:11 PM BLOOD TESTER FOWL) PT 11.3 9.7 - 13.0 sec INR 1.05 0.90 - 1.20 [facility] Comment: Interpretive data Oral anticoagulant therapeutic ranges: Venous thromboembolism prophylaxis or treatment: 2.0-3.0 CARDIOLOGY Standard range: 2.0-3.0 High-intensity range: 2.5-3.5 Refer to indication-specific guidelines for appropriate target ranges for prosthetic heart valve replacement. Current interpretive data was last revised on 2019. Blood 10/16/2024 12:1 1 PM BLOOD TESTER FOWL 10/16/2024 12:11 PM BLOOD TESTER FOWL Julieta Gamino DAY CARE WORKER LAB BLOOD ORDERABLES Final Result Performing Organization Address [facility] [place] [address] * (ABNORMAL) Comprehensive metabolic panel (10/16/2024 12:11 PM BLOOD TESTER FOWL) Pathologist [facility] Sodium 141 135 - 145 mmol/L Potassium, pl 4.6 3.3 - 4.9 mmol/L [facility] Chloride 100 97 - 110 mmol/L [facility] CO2 29 22 - 32 mmol/L [facility] Anion gap 12 2 - 15 mmol/L [facility] BUN 18 6 - 25 mg/dL [facility] Creatinine 0.93 0.60 - 1.10 mg/dL [facility] Glucose 93 70 - 199 mg/dL [facility] Comment: Interpretive Data Fasting glucose >/= 126 [...] 2022. Calcium 10.6(H) 8.5 - 10.3 mg/dL [facility] Bilirubin, total 0.6 0.1 - 1.2 mg/dL [facility] Protein, pl 7.9 6.5 - 8.5 g/dL [facility] Albumin 4.8 3.5 - 5.0 g/dL [facility] Alk phos 98 40 - 130 Units/L [facility] ALT 23 7 - 45 Units/L [facility] AST 28 10 - 45 Units/L [facility] Blood 10/16/2024 12:1 1 PM BLOOD TESTER FOWL 10/16/2024 12:53 PM BLOOD TESTER FOWL Julieta Gamino NP LAB BLOOD ORDERABLES Final Result [facility] Department [place] [address] * ECG 12 lead (10/16/2024 11:26 AM BLOOD TESTER FOWL) Pathologist [facility] Ventricular Rate EKG/Min 68 BPM [facility] Atrial Rate 68 BPM [facility] CO-Interval (MSEC) 168 ms [facility] QRS-Interval (MSEC) 76 ms [facility] QT-Interval (MSEC) 398 ms [facility] QTc 423 ms [facility] P Garita 64 degrees [facility] R Garita 43 degrees [facility] T Garita 47 degrees [facility] Diagnosis Normal sinus rhythm Normal ECG When compared with ECG of 11-MAY-2024 08:19, no significant change Confirmed by MARV GARCIA M.D ([id number]) on 10/16/2024 1:39:42 PM [facility] 10/16/2024 11:2 6 AM BLOOD TESTER FOWL 10/16/2024 1:39 PM BLOOD TESTER FOWL us Julieta Gamino NP ECG ORDERABLES Final Result [facility] * COLONOSCOPY (11/12/2020 12:00 PM BLOOD TESTER FOWL) Anatomical Region Laterality Modality Other Narrative Procedure Note Paz Mejias MD - 11/12/2020 12:00 PM CST [facility] Patient Name: Stacy Herron Procedure Date: 11/12/2020 12:00 PM Date of : 1945 Admit Type: Outpatient Age: 75 Gender: Female Attending MD: Brandt Gunter Room: [facility] ENDOSCOPY ROOM 3 Note Status: Finalized Procedure: [...] The scope was passed under direct vision.The [id number] endoscope was introduced through the anus and advanced to the terminal ileum. The colonoscopy was performed without difficulty. The patient tolerated the procedure well. The qualityof the bowel preparation was evaluated using the BBPS ([place] Bowel Preparation Scale) with scores of:Right Colon [...] On: 11/12/2020 12:00 PM Recognized by the [place] [employer] for promoting quality in endoscopy Paz Mejias MD ENDOSCOPY PROCEDUR ES Final Result from Last 3 Months or Most Recently Relevant to Health Maintenance Insurance [facility] AET SENIOR SUPPLEMENT [address] [place] [address] MEDICARE AETNA SENIOR SUPPLEMENT Advance Directives For more information, please contact: [phone] Documents on File Type Date Recorded Patient Planer Mill Grader Expl anation ADVANCE DIRECTIVE 10/23/2024 2:41 AM POWER OF KITCHEN BATH DESIGNER-MEDICAL ADVANCE DIRECTIVE 10/23/2024 2:41 AM LIVING WILL [...] 10:37 AM 11/12/2020 5:37 PM Care Teams Greenhouse Technician Relationship Specialty Start Date End Date Praveena Mcfarland MD [address] [place] [address] PCP - General Internal Medicine 10/11/19 Paul Lopez MD [address] [place] [address] 10/11/19 Paz Mejias MD [address] [place] [address] Music Therapist [employer] Gastroenterology 09/07/22 Hayden Huffman III, MD [address] [place] [address] Personal Banking Representative Cardiology 12/14/22 Herson Elam MD [address] [place] [address] [place] [address] Surgeon Orthopedic Surgery 11/22/23 Gee Carrasco MD [address] [place] [address] [place] [address] Referring Physician Cardiology 02/29/24 Irasema Valdez MD [address] [place] [address] [place] [address] Personal Banking Representative Cardiology 05/15/24 Cristhian Rodgers MD [address] [phone] [place] [address] Cardiothoracic Surgery 10/20/24 Bill Tovar MD [address] [phone] [place] [address] Surgeon Colon and Rectal Surgery 11/15/24
[2024-11-21 16:13] LABS: Anion Gap 6 mmol/L (4-12); Blood Urea Nitrogen 21 mg/dL (7-18); Calcium 9.6 mg/dL (8.5-10.1); Carbon Dioxide 31 mmol/L (21-32); Chloride 103 mmol/L (98-108); Estimated Glomerular Filt Rate 54; Glucose 85 mg/dL (70-99); NT Pro B Type Natriuretic Pept 667 pg/mL (0-450); Osmolality Calculated 292 mOsm/kg (285-295); Potassium 4.4 mmol/L (3.5-5.1); Sodium 140 mmol/L (136-145)
== END 2024-11-21 10:29 | disposition home or self-care (01) ==
PROVIDERS: PCP Internal Medicine
DX: I50.32 Chronic diastolic (congestive) heart failure (principal); R06.02 Shortness of breath; Z95.4 Presence of other heart-valve replacement; Z79.899 Other long term (current) drug therapy; R79.89 Other specified abnormal findings of blood chemistry
CPT/HCPCS: 36415; 80048; 83880

== ENCOUNTER 2024-11-27 12:52 | Outpatient (CLI) | payer MEDICARE, SELFPAY ==
--- NOTE | ~2024-11-27 | MM_ITS ---
EXAMINATION: MM screening sher BI w [facility] HISTORY: Screening mammogram TECHNIQUE: Craniocaudal and mediolateral oblique 3-D tomosynthesis images were obtained and synthetic 2-D images were generated. CAD analysis was submitted and interpreted. COMPARISON: 10/26/2023, 09/10/2022 BREAST PARENCHYMAL COMPOSITION:Not Dense. There are scattered areas of fibroglandular density. FINDINGS: No suspicious mass, calcification, or architectural distortion are identified in either kayla ast to suggest malignancy. There has been no suspicious interval change. IMPRESSION: No mammographic evidence of malignancy. Recommend routine screening mammography in one year. BI-RADS Category 1: Negative Reviewed, dictated and finalized at location .
--- NOTE | ~2024-11-27 | DEXA_ITS ---
Bone Density Report Name: MJ GARIBAY Age: 79 Sex: Female Ethnicity: White Date of : 1945 Indication: osteopenia; height loss; hysterectomy; Referring Provider: Praveena Mcfarland Study: Bone densitometry was performed. Exam Date: November 27, 2024 Accession number: [id number] Bone Density: Region BMD T-score Z-score Classification AP Spine(L1-L4) 0.808 -2.2 0.4 Osteopenia Femoral Neck (Left) 0.574 -2.5 -0.3 Osteoporosis Total Hip (Left) 0.744 -1.6 0.3 Osteopenia Femoral Neck (Right) 0.618 -2.1 0.1 Osteopenia Total Hip (Right) 0.764 -1.5 0.5 Osteopenia Femoral Neck Mean 0.596 -2.3 -0.1 Osteopenia Total Hip Mean 0.754 -1.5 0.4 Osteopenia World Health Organization criteria for BMD impression classify patients as: Normal (T-score at or above -1.0), Osteopenia (T-score between -1.0 and -2.5), or Osteoporosis (T-score at or below -2.5). 10-year Fracture Risk: FRAX not reported because: Some T-score for Spine Total or Hip Total or Femoral Neck at or below -2.5 Previous Exams: Region Exam Age BMD T-score BMD Change BMD Change Date g/cm2 vs Baseline vs Previous AP Spine (L1-L4) 11/27/2024 79 0.808 -2.2 -0.149 (-15.6% -0.149 (-15.6% 10/24/2019 74 0.958 -0.8 Total Hip(Left) 11/27/2024 79 0.744 -1.6 0.043 (6.1%)# 0.043 (6.1%)# 10/24/2019 74 0.701 -2.0 Total Hip(Right) 11/27/2024 79 0.764 -1.5 0.046 (6.4%)# 0.046 (6.4%)# 10/24/2019 74 0.718 -1.8 *Denotes significance at 95% confidence level, LSC for AP Spine = 0.022 g/cm2, LSC for Total Hip = 0.027 g/cm2 # Denotes dissimilar scan types or analysis methods Clinical Information Provided by Patient: Has used the following medications: Vitamin D, Calcium Has the following medical conditions: Hysterectomy Patient maximum height was 62.8 Menopause Age: 36 No regular weight bearing exercise Does not regularly consume dairy products Drinks caffeinated beverages Onset of menses at age 14 Number of children 2 Impression: The patient has osteoporosis, based on the Left Femoral Neck T-score. No significant bone loss was observed. Discussion: INCREASED RISK OF FRACTURE. BONE DENSITY IS UNDESIRABLY LOW AT ONE OR MORE SKELETAL SITES, CONSISTENT WITH POSTMENOPAUSAL OSTEOPOROSIS. This patient's lowest T-score meets the World Health Organization's (WHO) criteria for osteoporosis at one or more sites (T-score -2.5 or below). In untreated patients, the risk of osteoporotic fracture increases approximately two-fold for each 1.0 SD decrease in T-score. Low bone density is not the only risk factor for fracture; also consider factors such as patient's age, frailty or poor health, risk of falling, risk of injury, previous osteoporotic fracture, family history of osteoporosis, cigarette smoking, low body weight, etc. Not everyone with low bone mineral density has osteoporosis; osteomalacia and other metabolic bone disorders should also be considered. Patients who have osteoporosis should be evaluated for specific diseases and conditions (secondary causes) that may cause or contribute to bone loss. The [place] Association of Clinical Endocrinologists (AACE) and National Osteoporosis Foundation (NOF) recommend pharmacologic intervention for all postmenopausal women whose T-score is in this range. The patient should follow a healthful lifestyle (good nutrition with adequate calcium and vitamin D, and appropriate weight-bearing exercise). Follow-Up: Consider a repeat BMD and Vertebral Fracture Assessment (VFA) exam in 2 years or sooner if medically necessary, to reassess this patient's status. Reported by: MITCH on 11/27/2024 1:29:00 PM. Reviewed, dictated and finalized at location A.
--- OUTSIDE RECORDS SUMMARY | 2024-11-27 14:12 | XMS_ITS | Encounter Summary ---
Author Organization [facility] Address [address] [place] [address] Phone Care Team Providers Care Space Control Supervisor Name Role Phone Praveena Mcfarland MD Primary Care Provider Paul Lopez MD Unavailable [phone] Paz Mejias MD Unavailable + Nathanael VALERIO MD, Hayden Singh Unavailable [phone] Herson Elam MD Unavailable [phone] Gee Carrasco MD Unavailable [phone] Darryn Valdez MD Unavailable [phone] Cristhian Gonzalez MD Unavailable Bill Tovar MD Unavailable [phone] Encounter Details Date Type Department Care Team (Late st Contact Info) Description 11/26/2024 Telephone [facility] Cardiology [address] 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 Admins - can we also work on obtaining lab results from [place], [place]? documented in this encounter Plan of Treatment Not on file documented as of this encounter Visit Diagnoses Not on filedocumented in this encounter Care Teams Space Control Supervisor Relationship Specialty Start Date End Date Praveena Mcfarland MD [address] [place] [address] PCP - General Internal Medicine 10/11/19 Paul Lopez MD [address] [place] [address] 10/11/19 Paz Mejias MD [address] [place] [address] Transplant Case Manager Gastroenterology 09/07/22 Hayden Huffman III, MD [address] [place] [address] Ep Tech Cardiology 12/14/22 Herson Elam MD [address] [place] [address] [address] [place], [place] [address], [place] [address] Surgeon Orthopedic Surgery 11/22/23 Gee Carrasco MD [address] [place] [address] [address] [place], [place] [address], [place] [address] Referring Physician Cardiology 02/29/24 Darryn Valdez MD [address] [place] [address] [address] [facility] [place] [address] Ep Tech Cardiology 05/15/24 Cristhian Gonzalez MD [address] [facility] [phone] [place] [address] Cardiothoracic Surgery 10/20/24 Bill Tovar MD [address] [facility] [phone] [place] [address] Surgeon Colon and Rectal Surgery 11/15/24 documented as of this encounter
--- OUTSIDE RECORDS SUMMARY | 2024-11-27 14:12 | XMS_ITS | Encounter Summary ---
Author Organization [facility] Address [address] [place] [address] Phone Care Team Providers Care Weed Burner Name Role Phone Praveena Mcfarland MD Primary Care Provider Paul Lopez MD Unavailable [phone] Paz Mejias MD Unavailable + Nathanael VALERIO MD, Hayden Singh Unavailable Herson Elam MD Unavailable Gee Carrasco MD Unavailable [phone] Darryn Valdez MD Unavailable [phone] Cristhian Gonzalez MD Unavailable Bill Tovar MD Unavailable Encounter Details Date Type Department Care Team (Late st Contact Info) Description 11/26/2024 Orders Only [facility] Cardiology [address] [facility] Medical [address] [place] [address] Darryn Valdez MD [address] [facility] [address] [place] [address] Social History Tobacco Use Types Packs/Day Years [...] on file 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:54 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 Gender Identity Female 02/06/2020 12:07 PM CDT Sexual Orientation Not on file documented as of this encounter Ordered Prescriptions Prescription Sig Dispense Quantity Refills Last Filled Start Date End Date potassium chloride ER (KLOR-CON) 10 mEq CR tablet Take 1 tablet/caps ule (10 mEq total) by mouth daily 11/26/2024 11/26/2025 documented in this encounter Plan of Treatment Not on file documented as of this encounter Visit Diagnoses Not on filedocumented in this encounter Care Teams Weed Burner Relationship Specialty Start Date End Date Praveena Mcfarland MD [address] [place] [address] PCP - General Internal Medicine 10/11/19 Paul Lopez MD [facility] [address] [address] 10/11/19 Paz Mejias MD [address] [place] [address] Healthcare Risk Control Consultant Gastroenterology 09/07/22 Hayden Huffman III, MD [address] [place] [address] Herpetology Teacher Cardiology 12/14/22 Herson Elam MD [address] [place] [address] [address] [place] [address] Surgeon Orthopedic Surgery 11/22/23 Gee Carrasco MD [address] [place] [address] [place] [address] Referring Physician Cardiology 02/29/24 Darryn Valdez MD [address] [place] [address] [address] [place] [address] Herpetology Teacher Cardiology 05/15/24 Cristhian Gonzalez MD [address] [facility] [phone] [place] [address] Cardiothoracic Surgery 10/20/24 Bill Tovar MD [address] [facility] [phone] [place] [address] Surgeon Colon and Rectal Surgery 11/15/24 documented as of this encounter
--- OUTSIDE RECORDS SUMMARY | 2024-11-27 14:12 | XMS_ITS | Encounter Summary ---
Author Organization [facility] Address [address] [place] [address] Phone Care Team Providers Care Investment Broker Name Role Phone Praveena Mcfarland MD Primary Care Provider Paul Lopez MD Unavailable Paz Mejias MD Unavailable + Nathanael VALERIO MD, Hayden Singh Unavailable Herson Elam MD Unavailable [phone] Gee Carrasco MD Unavailable [phone] Darryn Valdez MD Unavailable [phone] Cristhian Gonzalez MD Unavailable [phone] Bill Tovar MD Unavailable Encounter Details Date Type Department Care Team (Late st Contact Info) Description 11/27/2024 Results Follow-Up [facility] Cardiology [address] [facility] 8th [place] [address] [place] [address] Darryn Valdez MD [address] 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 Gender Identity Female 02/06/2020 12:07 PM CDT Sexual Orientation Not on file documented as of this encounter Plan of Treatment Not on file documented as of this encounter Visit Diagnoses Not on filedocumented in this encounter Care Teams Investment Broker Relationship Specialty Start Date End Date Praveena Mcfarland MD [address] [place] [address] PCP - General Internal Medicine 10/11/19 aPul Lopez MD [address] [place] [address] 10/11/19 Paz Mejias MD [address] [place] [address] Orchestrator Gastroenterology 09/07/22 Hayden Huffman III, MD [address] [place] [address] Toilet Attendant Cardiology 12/14/22 Herson Elam MD [address] [place] [address] [address] [place] [address] Surgeon Orthopedic Surgery 11/22/23 Gee Carrasco MD [address] [place] [address] [address] [place] [address] Referring Physician Cardiology 02/29/24 Darryn Valdez MD [address] [place] [address] [address] [place] [address] Toilet Attendant Cardiology 05/15/24 Cristhian Gonzalez MD [address] [phone] [place] [address] Cardiothoracic Surgery 10/20/24 Bill Tovar MD [address] [phone] [place] [address] Surgeon Colon and Rectal Surgery 11/15/24 documented as of this encounter
--- OUTSIDE RECORDS SUMMARY | 2024-11-27 14:12 | XMS_ITS | Encounter Summary ---
Author Organization [facility] Address [address] [place] [address] Phone Care Team Providers Care Certified Ophthalmic Surgical Assistant Name Role Phone Praveena Mcfarland MD Primary Care Provider Paul Lopez MD Unavailable [phone] Paz Mejias MD Unavailable + Nathanael VALERIO MD, Hayden Singh Unavailable Herson Elam MD Unavailable Gee Carrasco MD Unavailable [phone] Darryn Valdez MD Unavailable [phone] Cristhian Gonzalez MD Unavailable [phone] Bill Tovar MD Unavailable Encounter Details Date Type Department Care Team (Latest Contact Info) Description 11/21/2024 Orders Only [facility] Scanning, Provider Social History Tobacco Use Types Packs/Day Years [...] on file 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 Gender Identity Female 02/06/2020 12:07 PM CDT Sexual Orientation Not on file documented as of this encounter Plan of Treatment Not on file documented as of this encounter Procedures Procedure Name Priority Date/Time Associated Diagnosis Comments SCAN - LABS 11/21/2024 documented in this encounter Results * SCAN - LABS (11/21/2024) us Provider Scanning Final Result documented in this encounter Visit Diagnoses Not on filedocumented in this encounter Care Teams Certified Ophthalmic Surgical Assistant Relationship Specialty Start Date End Date Praveena Mcfarland MD [address] [place], [place] [id number] PCP - General Internal Medicine 10/11/19 Paul Lopez MD [address] [place] [address] 10/11/19 Paz Mejias MD [address] [place] [address] Assistant Women'S Soccer Coach Gastroenterology 09/07/22 Hayden Huffman III, MD [address] [place] [address] Obstetrics Nurse Cardiology 12/14/22 Herson Elam MD [address] [place] [address] [address] [place] [address] Surgeon Orthopedic Surgery 11/22/23 Gee Carrasco MD [address] [place] [address] [address] [place] [address] Referring Physician Cardiology 02/29/24 Darryn Valdez MD [address] [place] [address] [address] [place] [address] Obstetrics Nurse Cardiology 05/15/24 Cristhian Gonzalez MD [address] [phone] [place] [address] Cardiothoracic Surgery 10/20/24 Bill Tovar MD [address] [phone] [place] [address] Surgeon Colon and Rectal Surgery 11/15/24 documented as of this encounter
--- OUTSIDE RECORDS SUMMARY | 2024-11-27 14:12 | XMS_ITS | Clinical Summary ---
Author Organization [facility] Address [address] [place] [address] Care Team Providers Care Geothermal Field Technician Name Role Phone Praveena Mcfarland MD Primary Care Provider [phone] Nereyda Kemp MD Unavailable [phone] Cristhian Gonzalez MD Unavailable [phone] iVnnie Barr MD Unavailable [phone] Allergies Active Allergy Reactions Criticality Noted Date [...] Type Department Care Team Description [facility] [address] [place] [address] Vinnie Barr MD Called To [...] Documents on File Type Date Recorded Patient Filling Station Laborer Expl anation Advance Directives and Living Will 07/06/2019 10:49 AM Living Will Power of Gypsum Block Setter 07/06/2019 10:48 AM Monika NarayanFuvudatms-QHZ-ngtli; Eb Narayan-1st alternate [facility]-other Healthcare Agents on File Name Relationship Healthcare Agent Relationship Communication Gianluca R ([facility]) Kaushikewsterling Healthcare Agent Health Care [facility] Eb Narayan Other First Altern ate Health Care Agent Care Teams Geothermal Field Technician Relationship Specialty Start Date End Date Praveena Mcfarland MD [address] [place] [address] PCP - General INTERNAL MEDICINE 06/22/19 Nereyda Kemp MD COLON & RECTAL [address] [facility] [address] [place] [address] COLON/RECTAL SURGERY 12/15/22 Cristhian Gonzalez MD [address] [place] [address] Thoracic Surgery (Cardiothoracic Vascular Surgery) 02/27/24 Vinnie Barr MD [address] [place] [address] Consulting Physician CARDIOVASCULAR DISEASE 03/21/24
--- OUTSIDE RECORDS SUMMARY | 2024-11-27 14:12 | XMS_ITS | Encounter Summary ---
Author Organization [facility] Address [address] [place] [address] Care Team Providers Care Recovery Agent Name Role Phone Praveena Mcfarland MD Primary Care Provider [phone] Hayden Huffman MD Unavailable Unavailabl e Nereyda Kemp MD Unavailable [phone] Cristhian Gonzalez MD Unavailable [phone] Vinnie Barr MD Unavailable [phone] Encounter Details Date Type Department Care Team (Late st Contact Info) Description 10/12/2022 Abstract [facility] [address] [place] [address] Hayden Huffman MD Social History Tobacco Use [...] Coronavirus/COVID-19? No / Unsure 10/12/2022 10:01 AM PRODUCTION FOREMAN documented as of this encounter Plan of Treatment Not on file documented as of this encounter Visit Diagnoses Not on filedocumented in this encounter Care Teams Recovery Agent Relationship Specialty Start Date End Date Praveena Mcfarland MD [address] [place] [address] PCP - General INTERNAL MEDICINE 06/22/19 Hayden Huffman MD [address] [place] [address] [place] Warp Tying Machine Tender CARDIOVASCULAR DISEASE 06/27/19 03/20/24 Nereyda Kemp MD COLON & RECTAL [address] [place] [address] COLON/RECTAL SURGERY 12/15/22 Cristhian Gonzalez MD [address] [place] [address] Thoracic Surgery (Cardiothoracic Vascular Surgery) 02/27/24 Vinnie Barr MD [address] [place] [address] Consulting Physician CARDIOVASCULAR DISEASE 03/21/24 documented as of this encounter
--- OUTSIDE RECORDS SUMMARY | 2024-11-27 14:12 | XMS_ITS | Encounter Summary ---
Author Organization [facility] Address [address] [place] [address] Phone Care Team Providers Care Administrative Appeals Tribunal Member Name Role Phone Praveena Mcfarland MD Primary Care Provider Paul Lopez MD Unavailable [phone] Paz Mejias MD Unavailable + Nathanael VALERIO MD, Hayden Singh Unavailable Herson Elam MD Unavailable Gee Carrasco MD Unavailable [phone] Darryn Valdez MD Unavailable [phone] Cristhian Gonzalez MD Unavailable [phone] Bill Tovar MD Unavailable Encounter Details Date Type Department Care Team (Late st Contact Info) Description 11/26/2024 3:40 PM CDT Lab [facility] Endocrinology Metabolism and Lipid [address] [facility] Medicine 8th [place] [address] [place] [address] S/P tricuspid valve replacement Social History Tobacco Use Types Packs/Day Years [...] on file 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 Gender Identity Female 02/06/2020 12:07 PM CDT Sexual Orientation Not on file documented as of this encounter Plan of Treatment Not on file documented as of this encounter Procedures Procedure Name Priority Date/Time Associated Diagnosis Comments MAGNESIUM Routine 11/26/2024 3:30 PM CDT S/P tricuspid valve replacement BASIC METABOLIC PANEL Routine 11/26/2024 3:30 PM CDT S/P tricuspid valve replacement documented in this encounter Results * Magnesium (11/26/2024 3:30 PM CDT) Magnesium 2.1 1.6 - 2.6 mg/dL [facility] Blood 11/26/2024 3:30 PM CDT 11/26/2024 4:14 PM CDT us Darryn Valdez MD LAB BLOOD ORDERABLES Final Resu lt [facility] * (ABNORMAL) Basic metabolic panel (11/26/2024 3:30 PM CDT) Glucose 92 64 - 99 mg/dL [facility] Comment: NONFASTING GLUCOSE RANGE = 64-199 mg/dL FASTING GLUCOSE 64 - 99 = NORMAL FASTING GLUCOSE 100 - 125 = IMPAIRED FASTING GLUCOSE FASTING GLUCOSE >=126 = PROVISIONAL DIAGNOSIS OF DIABETES Potassium 4.2 3.3 - 5.1 mmol/L [facility] Creatinine 1.01 0.60 - 1.10 mg/dL [facility] BUN 21 7 - 23 mg/dL [facility] Sodium 140 135 - 145 mmol/L [facility] Chloride 102 95 - 107 mmol/L [facility] CO2 Content 25 21 - 29 mmol/L [facility] Calcium 10.4(H) 8.6 - 10.3 mg/dL [facility] eGFR 57.3(L) >60.0 mL/min/1.7 3 m2 [facility] Blood 11/26/2024 3:30 PM CDT 11/26/2024 4:14 PM CDT Darryn Valdez MD LAB BLOOD ORDERABLES Final Resu lt Performing Organization Address City/State/[facility] Co de Phone Number [facility] CORE [facility] documented in this encounter Visit Diagnoses Diagnosis S/P tricuspid valve replacement Heart valve replaced by other means documented in this encounter Care Teams Administrative Appeals Tribunal Member Relationship Specialty Start Date End Date Praveena Mcfarland MD [address] [place] [address] PCP - General Internal Medicine 10/11/19 Paul Lopez MD [address] [place] [address] 10/11/19 Paz Mejias MD [address] [place] [address] Auto Claims Adjuster Gastroenterology 09/07/22 Hayden Huffman III, MD [address] [place] [address] Pet Nutrition Specialist Cardiology 12/14/22 Herson Elam MD [address] [place] [address] [place] [address] Surgeon Orthopedic Surgery 11/22/23 Gee Carrasco MD [address] [place] [address] [place] [address] Referring Physician Cardiology 02/29/24 Darryn Valdez MD [address] [place] [address] [place] [address] Pet Nutrition Specialist Cardiology 05/15/24 Cristhian Gonzalez MD [address] [facility] [phone] [place] [address] Cardiothoracic Surgery 10/20/24 Bill Tovar MD [address] [facility] [phone] [place] [address] Surgeon Colon and Rectal Surgery 11/15/24 documented as of this encounter
--- OUTSIDE RECORDS SUMMARY | 2024-11-27 14:12 | XMS_ITS | Encounter Summary ---
Author Organization [facility] Address [address] [place] [address] Phone Care Team Providers Care Process Chemist Name Role Phone Praveena Mcfarland MD Primary Care Provider Paul Lopez MD Unavailable Paz Mejias MD Unavailable + Nathanael VALERIO MD, Hayden Singh Unavailable Herson Elam MD Unavailable Gee Carrasco MD Unavailable [phone] Darryn Valdez MD Unavailable [phone] Cristhian Gonzalez MD Unavailable Bill Tovar MD Unavailable [phone] Encounter Details Date Type Department Care Team (Late st Contact Info) Description 11/26/2024 2:30 PM CDT Office Visit [facility] Cardiology [address] [facility] Medicine 8th [place] [address] [place] [address] S/P tricuspid valve replacement (Primary Dx); Mixed hyperlipidemia; Chronic diastolic heart failure (HCC) Social History Tobacco Use Types Packs/Day Years [...] on file 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:54 AM AMBULATORY CARE Gender Identity Female 02/06/2020 12:07 PM CDT Sexual Orientation Not on file documented as of this encounter Last Filed Vital Signs Vital Sign Reading Time Taken Comments Blood Pressure 118/74 11/26/2024 2:16 PM CDT Pulse 71 11/26/2024 2:16 PM CDT Temperature - - Respiratory Rate - - Oxygen Saturation 94% 11/26/2024 2:16 PM CDT Inhaled Oxygen Concentration - - Weight 63 kg (139 lb) 11/26/2024 2:16 PM CDT Height 154.9 cm (5' 1 ) 11/26/2024 2:16 PM CDT Body Mass Index 26.26 11/26/2024 2:16 PM CDT documented in this encounter Patient Instructions * Patient Instructions* Darryn Valdez MD - 11/26/2024 2:30 PM CDT Continue furosemide 10 mg daily Please send the information of potassium dose Check BMP and Mg Obtain result from [place], [place] Continue Eliquis Cardiac rehab Antibiotic prophylaxis prior to invasive procedures Follow up with me in Gen cards office in 6 months Call if any questions [phone] documented in this encounter Progress Notes * Darryn Valdez MD - 11/26/2024 2:30 PM CDT Images from the original note were not included. Department of Medicine Cardiovascular Division PATIENT NAME: Stacy Herron : 1945 [place]: 11/26/2024 PRINCIPAL AND SECONDARY DIAGNOSES: Severe TR s/p TTVR 48 mm Evoque (Courtney and Carlos) on 10/18/24 Post procedural echo; mean gradient 4 mmHg, peak gradient 7 mmHg HTN HLD IBS s/p stimulator COPD HISTORY OF PRESENT ILLINESS Ms Herron is a 79 y/o female with a history as stated above who is here for a follow up visit Since her last visit she has been doing well. She denies any angina, syncope, orthopnea or pnd. She is able to complete her activities with no limitations. She feels tired after a set of them. She denies any bleeding. Her BNP was elevated and her diuretic was restarted. She notes some BP that are in the low 100s REVIEW OF SYSTEMS Constitutional: negative for chills and fevers Eyes: negative for icterus and visual disturbance Ears, nose, mouth, throat, and face: negative for snoring and sore throat Respiratory: negative for cough, dyspnea on exertion and wheezing Cardiovascular: negative for fatigue, irregular heart beat, palpitations and paroxysmal nocturnal dyspnea Gastrointestinal: negative for change in bowel habits and melena Genitourinary:negative for dysuria and frequency Hematologic/lymphatic: negative for bleeding and easy bruising Musculoskeletal:negative for muscle weakness and myalgias Neurological: negative for dizziness, speech problems and vertigo Endocrine: negative for temperature intolerance Allergic/Immunologic: negative for anaphylaxis and angioedema MEDICATIONS Prior to Admission medications Medication Sig Start Date End Date Taking? Authorizing Provider acetaminophen (TYLENOL) 500 mg tablet Take 1 tablet (500 mg total) by mouth every 6 (six) hours as needed for pain Yes Parrish Ridley MD acetaminophen-codeine (TYLENOL with CODEINE #3) 300-30 mg per tablet Take 1 tablet by mouth every 6(six) hours as needed for pain 09/14/24 Yes Parrish Ridley MD acidophilus-pectin, citrus 100 million cell-10 mg capsule Take 1 tablet by mouth every morning Yes Parrish Ridley MD apixaban (ELIQUIS) 5 mg tablet Take 1 tablet (5 mg total) by mouth every 12 (twelve) hours 11/12/24 Yes Shawanda Maurice NP ascorbic acid (vitamin C) 1,000 mg tablet Take 1 tablet (1,000 mg total) by mouth as needed (supplement) Yes Parrish Ridley MD aspirin 81 mg chewable tablet Take 1 tablet (81 mg total) by mouth daily 10/21/24 10/21/25 Yes Isaiah Crockett NP cetirizine (ZyrTEC) 5 mg tablet Take 1 tablet (5 mg total) by mouth as needed for allergies or rhinitis 07/10/24 Yes Parrish Ridley MD diphenoxylate-atropine (LOMOTIL) 2.5-0.025 mg per tablet Take 2 tablets by mouth every morning 11/21/19 Yes Parrish Ridley MD furosemide (LASIX) 20 mg tablet Take 0.5 tablets (10 mg total) by mouth daily 11/13/24 Yes Shawanda Maurice NP lisinopriL (PRINIVIL,ZESTRIL) 5 mg tablet Take 1 tablet (5 mg total) by mouth every morning 05/23/18 Yes Parrish Ridley MD omeprazole (PriLOSEC) 20 mg capsule Take 1 capsule (20 mg total) by mouth daily with breakfast 04/03/18 Yes Parrish Ridley MD ondansetron ODT (ZOFRAN-ODT) 4 mg disintegrating tablet Take 1 tablet (4 mg total) by mouth as needed for nausea or vomiting 09/04/24 Yes Parrish Ridley MD propranolol (INDERAL) 20 mg tablet Take 1 tablet (20 mg total) by mouth 2 (two) times a day 11/22/17 Yes Parrish Ridley MD simvastatin (ZOCOR) 40 mg tablet Take 1 tablet (40 mg total) by mouth nightly 10/31/19 Yes Parrish Ridley MD venlafaxine XR (EFFEXOR-XR) 37.5 mg 24 hr capsule Take 1 capsule (37.5 mg total) by mouth every morning 12/08/17 Yes Parrish Ridley MD vitamin B complex (B COMPLEX ORAL) Take 1 tablet by mouth every morning Yes ProviderParrish MD UNABLE TO FIND Take 1 each by mouth every morning Med Name: Memory and Brain supplement Patient not taking: Reported on 11/15/2024 ProviderParrish MD ALLERGIES Allergies Allergen Reactions Tetanus Vaccines And Toxoid Fever Lactose Diarrhea Morphine Headache and Nausea only OBJECTIVE VITAL SIGNS BP 118/74 (BP Location: Left arm, Patient Position: Sitting) Pulse 71 Ht 154.9 cm (5' 1 ) Wt 63 kg (139 lb) SpO2 94% BMI 26.26 kg/m?? PHYSICAL EXAM General: alert, active, in no acute distress Head: normocephalic Eyes: pupils equal, round, reactive to light Mouth: No oral lesions seen. Throat: tonsils: without exudates Neck: supple, no JVD, Carotid pulses 2+, No bruits, no lymphadenopathy, no thyromegaly. Lungs: Clear to Auscultation Heart: Normal PMI. regular rate and rhythm, normal S1, S2, no murmurs or gallops. Abdomen: Abdomen soft, non-tender. BS normal. No masses, organomegaly Neuro: mental status, speech normal, alert and oriented x III, cranial nerves 2- 12 intact Musculoskeletal: no cyanosis, clubbing or edema REVIEW OF LABS: Lab Results Component Value Date WBC 4.8 11/12/2024 HGB 11.2 (L) 11/12/2024 HCT 33.0 (L) 11/12/2024 MCV 91.0 11/12/2024 LABPLAT 139 (L) 10/20/2024 Lab Results Component Value Date NA 140 11/12/2024 K 3.8 11/12/2024 CL 102 11/12/2024 CO2 27 11/12/2024 ANIONGAP 8 10/20/2024 GLUCOSE 105 (H) 11/12/2024 BUNSER 15 10/20/2024 CREATININE 0.91 11/12/2024 CALCIUM 10.0 11/12/2024 ALBUMIN 4.5 10/19/2024 ALKPHOS 95 10/19/2024 ALT 24 10/19/2024 AST 55 (H) 10/19/2024 BILITOT 0.5 10/19/2024 No results found for: CHOL , POCCHOL , HDL , POCHDL , LDLCALC , CLDL , HIRISKLDL , LDL , LDLC , LDLDIRECT , LDLMED , LDLP , POCLDL , SCRLDL , SMALLLDLP , TOTLDLC , TRIG , POCTRIG Lab Results Component Value Date PT 11.0 10/19/2024 INR 1.02 10/19/2024 Lab Results Component Value Date NPROBNP 1,758 (H) 11/12/2024 REVIEW OF ECHOCARDIOGRAM: I personally reviewed and interpreted the echocardiogram from 11/13 with normla TTVR with a mean gradient of 3 mmHg and preserved LV function IMPRESSION: Stacy Herron is a 79 y.o. female with a has a past medical history of COPD (chronic obstructive pulmonary disease) (HCC), Fecal incontinence, GERD (gastroesophageal reflux disease), Hyperlipidemia, Hypertension, IBS (irritable bowel syndrome), Motion sickness, PONV (postoperative nausea and vomiting), Sacral nerve stimulator present (12/17/2022), Sleep apnea, and Tricuspid regurgitation. here with symptoms of diastolic heart failure, s/p TTVR PLAN: Continue furosemide 10 mg daily Please send the information of potassium dose Check BMP and Mg Obtain result from [place], [place] Continue Eliquis Cardiac rehab Antibiotic prophylaxis prior to invasive procedures Follow up with me in Gen cards office in 6 months Darryn Valdez MD rn new grad [employer] Insurance Agent of Valvular Heart Disease documented in this encounter Plan of Treatment Not on file documented as of this encounter Results * Magnesium (11/26/2024 3:30 PM CDT) Magnesium 2.1 1.6 - 2.6 mg/dL [facility] Blood 11/26/2024 3:30 PM CDT 11/26/2024 4:14 PM CDT us Darryn Valdez MD LAB BLOOD ORDERABLES Final Resu lt [facility] CORE [facility] * (ABNORMAL) Basic metabolic panel (11/26/2024 3:30 PM CDT) Glucose 92 64 - 99 mg/dL [facility] [...] MD LAB BLOOD ORDERABLES Final Resu lt [facility] CORE [facility] documented in this encounter Visit Diagnoses Diagnosis S/P tricuspid valve replacement- Primary Heart valve replaced by other means Mixed hyperlipidemia Chronic diastolic heart failure (HCC) Chronic diastolic heart failure documented in this encounter Care Teams Process Chemist Relationship Specialty Start Date End Date Praveena Mcfarland MD [address] [place] [address] PCP - General Internal Medicine 10/11/19 Paul Lopez MD [address] [address] 10/11/19 Paz Mejias MD [address] [place] [address] Reel Man Gastroenterology 09/07/22 Hayden Huffman III, MD [address] [place] [address] Rehab Specialist Cardiology 12/14/22 Herson Elam MD [address] [place] [address] [address] [place] [address] Surgeon Orthopedic Surgery 11/22/23 Gee Carrasco MD [address] [place] [address] [place] [address] Referring Physician Cardiology 02/29/24 Darryn Valdez MD [address] [place] [address] [address] [place] [address] Rehab Specialist Cardiology 05/15/24 Cristhian Gonzalez MD [address] [facility] [id number] [place] [address] Cardiothoracic Surgery 10/20/24 Bill Tovar MD [address] [facility] [phone] [place] [address] Surgeon Colon and Rectal Surgery 11/15/24 documented as of this encounter
--- OUTSIDE RECORDS SUMMARY | 2024-11-27 14:12 | XMS_ITS | Encounter Summary ---
Author Organization [facility] Address [address] [place] [address] Phone Care Team Providers Care Welder Apprentice Gas Name Role Phone Praveena Mcfarland MD Primary Care Provider Paul Lopez MD Unavailable Paz Mejias MD Unavailable + Nathanael VALERIO MD, Hayden Singh Unavailable [phone] Herson Elam MD Unavailable Gee Carrasco MD Unavailable [phone] Darryn Valdez MD Unavailable [phone] Cristhian Gonzalez MD Unavailable Bill Tovar MD Unavailable Encounter Details Date Type Department Care Team (Late st Contact Info) Description 11/22/[address] 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 Gender Identity Female 02/06/2020 12:07 PM CDT Sexual Orientation Not on file documented as of this encounter Miscellaneous Notes * Telephone Encounter - Ariana Isaac RN - 11/23/2024 4:32 PM CST faxed T SNATCHER * Telephone Encounter - Kady Baires - 11/22/2024 2:52 PM CST VIRAL OMER WITH [facility] PT'S MOST RECENT OFFICE NOTE, ANY TESTING/LAB RESULTS,SURGICAL REPORT, DISCHARGE SUMMARY AND DEMOGRAPHICS/INSURANCE INFORMATION FAX [phone] T SNATCHER documented in this encounter Plan of Treatment Not on file documented as of this encounter Visit Diagnoses Not on filedocumented in this encounter Care Teams Welder Apprentice Gas Relationship Specialty Start Date End Date Praveena Mcfarland MD [address] [place] [address] PCP - General Internal Medicine 10/11/19 Paul Lopez MD [address] [place] [address] 10/11/19 Paz Mejias MD [address] [place] [address] Executive Compensation Analyst Gastroenterology 09/07/22 Hayden Huffman III, MD [address] [place] [address] Director Medical Writing Cardiology 12/14/22 Herson Elam MD [address] [place] [address] [place] [address] Surgeon Orthopedic Surgery 11/22/23 Gee Carrasco MD [address] [place] [address] [place] [address] Referring Physician Cardiology 02/29/24 Darryn Valdez MD [address] [place] [address] [place] [address] Director Medical Writing Cardiology 05/15/24 Cristhian Gonzalez MD [address] [facility] [id number] [place] [address] Cardiothoracic Surgery 10/20/24 Bill Tovar MD [address] [facility] [phone] [place] [address] Surgeon Colon and Rectal Surgery 11/15/24 documented as of this encounter
--- OUTSIDE RECORDS SUMMARY | 2024-11-27 14:13 | XMS_ITS | Encounter Summary ---
Author Organization [facility] Address [address] [place] [address] Phone Care Team Providers Care Bench Assembler Battery Name Role Phone Praveena Mcfarland MD Primary Care Provider Paul Lopez MD Unavailable [phone] Nereyda Kemp MD Unavailable Paz Mejias MD Unavailable + Nathanael VALERIO MD, Hayden Singh Unavailable Herson Elam MD Unavailable [phone] Gee Carrasco MD Unavailable [phone] Darryn Valdez MD Unavailable [phone] Cristhian Gonzalez MD Unavailable [phone] Bill Tovar MD Unavailable Encounter Details Date Type Department Care Team (Late st Contact Info) Description 11/12/2024 Results Follow-Up [facility] Cardiology [address] [facility] Medicine 8th [place] [address] [place] [address] Darryn Valdez MD [address] [address] Social History Tobacco Use Types Packs/Day Years [...] on file 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 Gender Identity Female 02/06/2020 12:07 PM CDT Sexual Orientation Not on file documented as of this encounter Plan of Treatment Not on file documented as of this encounter Visit Diagnoses Not on filedocumented in this encounter Care Teams Bench Assembler Battery Relationship Specialty Start Date End Date Praveena Mcfarland MD [address] [place] [address] PCP - General Internal Medicine 10/11/19 Paul Lopez MD [address] [place] [address] 10/11/19 Nereyda Kemp MD [address] [facility] [id number] [place] [address] Surgeon Colon and Rectal Surgery 09/07/2211/14 Paz Mejias MD [address] [place] [address] Insulation Board Calender Operator Gastroenterology 09/07/22 Hayden Huffman III, MD [address] [place] [address] Perl Developer Cardiology 12/14/22 Herson Elam MD [address] [place] [address] [address] [place] [address] Surgeon Orthopedic Surgery 11/22/23 Gee Carrasco MD [address] [place] [address] [address] [place] [address] Referring Physician Cardiology 02/29/24 Darryn Valdez MD [address] [place] [address] [address] [place] [address] Perl Developer Cardiology 05/15/24 Cristhian Gonzalez MD [address] [facility] [id number] [place] [address] Cardiothoracic Surgery 10/20/24 Bill Tovar MD [address] [facility] [phone] [place] [address] Surgeon Colon and Rectal Surgery 11/15/24 documented as of this encounter
--- OUTSIDE RECORDS SUMMARY | 2024-11-27 14:13 | XMS_ITS | Encounter Summary ---
Author Organization [facility] Address [address] [place] [address] Phone Care Team Providers Care Parenting Skills Instructor Name Role Phone Praveena Mcfarland MD Primary Care Provider Paul Lopez MD Unavailable [phone] Nereyda Kemp MD Unavailable [phone] Paz Mejias MD Unavailable + Nathanael VALERIO MD, Hayden Singh Unavailable Herson Elam MD Unavailable [phone] Gee Carrasco MD Unavailable [phone] Darryn Valdez MD Unavailable [phone] Cristhian Gonzalez MD Unavailable [phone] Bill Tovar MD Unavailable Encounter Details Date Type Department Care Team (Late st Contact Info) Description 11/12/2024 Results Follow-Up 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 Gender Identity Female 02/06/2020 12:07 PM CDT Sexual Orientation Not on file documented as of this encounter Plan of Treatment Not on file documented as of this encounter Visit Diagnoses Not on filedocumented in this encounter Care Teams Parenting Skills Instructor Relationship Specialty Start Date End Date Praveena Mcfarland MD [address] [place] [address] PCP - General Internal Medicine 10/11/19 Paul Lopez MD [address] [place] [address] 10/11/19 Nereyda Kemp MD [address] [facility] [phone] [place] [address] Surgeon Colon and Rectal Surgery 09/07/2211/14 Paz Mejias MD [address] [place] [address] Manager Registration Gastroenterology 09/07/22 Hayden Huffman III, MD [address] [place] [address] Cpa Tax Cardiology 12/14/22 Herson Elam MD [address] [place] [address] [address] [place] [address] Surgeon Orthopedic Surgery 11/22/23 Gee Carrasco MD [address] [place] [address] [address] [place] [address] Referring Physician Cardiology 02/29/24 Darryn Valdez MD [address] [place] [address] [address] [place] [address] Cpa Tax Cardiology 05/15/24 Cristhian Gonzalez MD [address] [facility] [phone] [place] [address] Cardiothoracic Surgery 10/20/24 Bill Tovar MD [address] [facility] [phone] [place] [address] Surgeon Colon and Rectal Surgery 11/15/24 documented as of this encounter
--- OUTSIDE RECORDS SUMMARY | 2024-11-27 14:13 | XMS_ITS | Encounter Summary ---
Author Organization [facility] Address [address] [place] [address] Care Team Providers Care Jacquard Plate Maker Name Role Phone Praveena Mcfarland MD Primary Care Provider [phone] Paul Lopez MD Unavailable [phone] Nereyda Kemp MD Unavailable [phone] Paz Mejias MD Unavailable + Nathanael VALERIO MD, Hayden Singh Unavailable Herson Elam MD Unavailable [phone] Gee Carrasco MD Unavailable [phone] Darryn Valdez MD Unavailable [phone] Cristhian Gonzalez MD Unavailable [phone] Bill Tovar MD Unavailable [phone] Encounter Details Date Type Department Care Team (Late st Contact Info) Description 04/04/2024 Telephone [facility] [address] [place] [id number] Charu Rai RN Social History Tobacco Use [...] on file 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 Gender Identity Female 02/06/2020 12:07 PM CDT Sexual Orientation Not on file documented as of this encounter Plan of Treatment Not on file documented as of this encounter Visit Diagnoses Not on filedocumented in this encounter Care Teams Jacquard Plate Maker Relationship Specialty Start Date End Date Praveena Mcfarland MD [address] [place] [address] PCP - General Internal Medicine 10/11/19 Paul Lopez MD [address] [place] [address] 10/11/19 Nereyda Kemp MD [address] [facility] [phone] [place] [address] Surgeon Colon and Rectal Surgery 09/07/2211/14 Paz Mejias MD [address] [place] [address] Flight Attendant Ramp Gastroenterology 09/07/22 Hayden Huffman III, MD [address] [place] [address] Machine Bookkeeper Cardiology 12/14/22 Herson Elam MD [address] [place] [address] [place] [address] Surgeon Orthopedic Surgery 11/22/23 Gee Carrasco MD [address] [place] [address] [place] [address] Referring Physician Cardiology 02/29/24 Darryn Valdez MD [address] [place] [address] [place] [address] Machine Bookkeeper Cardiology 05/15/24 Cristhian Gonzalez MD [address] [facility] [id number] [place] [address] Cardiothoracic Surgery 10/20/24 Bill Tovar MD [address] [facility] [phone] [place] [address] Surgeon Colon and Rectal Surgery 11/15/24 documented as of this encounter
--- OUTSIDE RECORDS SUMMARY | 2024-11-27 14:13 | XMS_ITS | Data Portability ---
Author Organization [place] [employer] [facility] [place], Main Office Address [address] [place] [address] Care Team Providers Care Director Outpatient Services Name Role Phone RYLEE CABRERA Primary Care Provider RYLEE CABRERA Referring Provider [phone] Assessment No assessment recorded. Plan of Treatment Reminders Order Date Submit Date Provider Last Modified By Organization Details Last Modified Time Details Appointments None recorded. Lab None recorded. Referral physical therapist referral - US, HEAT-MODALI TIES, STRENGTHEN RTC, HEP 2022 023 [email or web address] [facility], [address] [place], [address], 08:31:38 Procedures None recorded. Surgeries None recorded. Imaging None recorded. Medication Orders None recorded. Patient TargetsNo targets recorded. Patient InstructionsNo instructions recorded. Reason for Referral Physical Therapist Referral for Impingement syndrome of right shoulder region US, HEAT-MODALITIES, STRENGTHEN RTC, HEP Referring Physician: Hayden Maya, Orthopedic Surgery, Encounter Date: 12/14/2022 Results Created Date Observation Date Name Description Value Unit Range Abnormal Flag Note LastModifiedBy Organization Detail LastModifiedTime 09/28/19 23 XR, shoul yecenia, 2 or more view No observ ation record ed. [id number] [id number] [place] [address], [place], [address], 11/18/2022 01:47:39 Result Notes None recorded. Problems Name Problem SNOMED Code Status Onset Date Resolution Date Notes Provider Name and Address Organization Details Recorded Time Pain of right shoulder joint 5199337343886 9100 Active 2022 MILDRED Goncalves, [place] [employer] [facility] [place] [facility] 3 11:40:35 Impingement syndrome of right shoulder region 9670752315007 02 Active 2022 Cachorrojil Dixon, MADANAshok tee, [place] - [facility] 3 11:40:51 Problem Notes None recorded. Procedures Surgical History None recorded. Imaging Results Imaging Date Name Status LastModified by Organiz ation Details LastModified Time 09/28/2022 XR, shoulder, 2 or more view completed [id number] [id number] [place] [address], [place], [address], 11/18/2022 01:47:39 Procedure Notes None recorded. Medical Equipment None Reported. Allergies Allergen ID Allergen Name Allergen Category Reaction Reaction Severity Criticality Documentation Date Start Date Code Code System Note Provider Name and Address Organization Details Recorded Time 03590 morphine medicatio n Not available Not available Not available 11/18/2022 7052 RxNorm Not Available [facility] 01:47:37 Medications Name Sig Start Date Stop Date Status Note LastModified by Organization Details LastModified Time venlafaxine ER 37.5 mg capsule,ext ended release 24 hr TAKE ONE CAPSULE BY MOUTH ONCE DAILY WITH FOOD active Not Available Not Available No t Available venlafaxine ER 75 mg capsule,ext ended release 24 hr TAKE 1 CAPSULE BY MOUTH EVERY DAY active Not Available Not Available No t Available fluconazole 150 mg tablet TAKE 1 TABLET (150 MG) BY ORAL ROUTE ONCE. REPEAT IN 1 WEEK active Not Available Not Available No t Available phenazopyri dine 200 mg tablet TAKE 1 TABLET BY MOUTH THREE TIMES A DAY AFTER MEALS *NOT COVERED* 09/28 completed Not Available Not Available Not Available ondansetron HCl 4 mg tablet TAKE 1 TABLET (4 MG) BY ORAL ROUTE EVERY 6-8 HOURS NEEDED FOR NAUSEA active Not Available Not Available No t Available diphenoxyla te-atropine 2.5 mg-0.025 mg tablet TAKE 1 TO 2 TABLETS BY MOUTH 3 TO 4 TIMES DAILY NEEDED active Not Available Not Available No t Available acetaminoph en 300 mg-codeine 30 mg tablet TAKE 1 - 2 TABLETS BY ORAL ROUTE EVERY 6-8 HOURS NEEDED 09/28 completed Not Available Not Available Not Available ciprofloxac in 500 mg tablet TAKE 1 TABLET BY MOUTH TWICE A DAY 09/28 completed Not Available Not Available Not Available simvastatin 40 mg tablet TAKE 1 TABLET BY MOUTH EVERY DAY active Not Available Not Available No t Available Kenalog 10 mg/mL suspension for injection In office injection administe red by the provider active [facility]: 0003- 0494- 20 Not Available Not Available Not Available cephalexin 500 mg capsule TAKE 1 CAPSULE BY MOUTH EVERY 8 HOURS FOR 7 DAYS 09/28 completed Not Available Not Available Not Available omeprazole 20 mg capsule,del ayed release TAKE ONE CAPSULE BY MOUTH TWICE DAILY BEFORE MEALS active Not Available Not Available No t Available lisinopril 5 mg tablet TAKE 1 TABLET BY MOUTH TWICE A DAY active Not Available Not Available No t Available propranolol 20 mg tablet TAKE 1 TABLET BY MOUTH TWICE A DAY active Not Available Not Available No t Available ondansetron 4 mg disintegrat ing tablet TAKE 1 TAB ORAL EVERY 8 HOURS X7 DAYS NEEDED NAUSEA/VO MITING active Not Available Not Available No t Available nitrofurant oin monohydrate /macrocryst als 100 mg capsule TAKE 1 CAPSULE BY MOUTH TWICE A DAY WITH FOOD active Not Available Not Available No t Available ropivacaine (PF) 5 mg/mL (0.5 %) injection solution Take 8 mg by injection route. active Not Available Not Available No t Available Vitals Date Recorded Body mass index (BMI) Body height Pain severity - 0-10 verbal numeric rating [Score] - Reported Body weight Provider Name and Address Organization Details Last Updated DateTime 09/28/2022 25.5 kg/m2 154.94 cm 8 21420.97 g Not Available [facility] 11/18/2022 01:46:45 Date Recorded Body height Body mass index (BMI) Body weight Provider Name and Address Organization Details Last Updated DateTime 12/14/2022 154.94 cm 26.1 kg/m2 15795.75 g MILDRED Goncalves [place] 12/14/2022 11:40:01 Date Recorded Body height Body mass index (BMI) Body weight Provider Name and Address Organization Details Last Updated DateTime 2023 154.94 cm 26.1 kg/m2 83970.75 g DIANE Cortes [place] 2023 11:18:22 Social History Question Answer Notes LastModified by Organizat ion Details LastModified Time Tobacco Smoking Status Unknown If Ever Smoked Not Available [facility] 11/18/2022 01:46:33 What Is Your Level Of Alcohol Consumption? None [id number] Information not available 11/18/2022 What Was The Date Of Your Most Recent Tobacco Screening? 09/28/2022 [id number] Information not available 11/18/2022 Sex: Unknown Functional Status None recorded. Mental Status None recorded. Family History Relationship Description Onset Age of this Age Resolved Age Notes LastModified by Organization Details LastModified Time Father Family history of malignant neoplasm [id number] Not available 11/18/2022 01:46:42 Medical History Condition Response ARTHRITIS Y Gynecological HistoryNo gynecological history recorded. Obstetrics History GPAL:G 0 P 0 0 0 0 Past Encounters Encounter ID Performer Location Encounter Start Date Encounter Closed Date Diagnosis/Indication Diagnosis SNOMED-CT Code Diagnosis ICD10 Code Diagnosis Note [id number] [facility] [place] [address] [place] [address] 09/28/2022 00:00:00 09/28/2022 12:55:32 [id number] Hayden Maya MD [facility] [place] [address] [place] [address] 12/14/2022 11:38:04 12/14/2022 12:13:42 Pain of right shoulder joint 7785499495 4801687 M25.511 Impingemen t syndrome of right shoulder region 1223767006 58215 M75.41 patient will work 1 more time with the therapist 2 to 3 times a week for the next 3 weeks ultrasound and strengthen ing and other modalities home exercise program I will see her back in a month if she is having recurrence of the shoulder pain will get an MRI scan to rule out a cuff tear [id number] Hayden Maya MD [facility] [place] [address] [place] [address] 2023 11:15:39 2023 11:40:22 Pain of right shoulder joint 4510995528 4196280 M25.511 Impingemen t syndrome of right shoulder region 8766258167 32552 M75.41 patient will continue with her home exercise program if she has worsening of symptoms be happy to see her back we could do the injection a 2nd time if necessary if no improvemen t over time then would recommend an MRI scan for further evaluation Health Concerns Section Related Observation LastModified by Organization Detai ls LastModified Time None Recorded Concern Status LastModified by Organization Details LastModified Time None Recorded Advance Directives Directive None Recorded Payers Encounter Date Sequence Insurance Name Policy Number Policy Douglass Covered Member ID Douglass Member ID Guarantor Name 12/14/2022 1 [place] Nguyen Herron [id number] Teresa Herron 12/14/2022 2 [employer] (MEDICARE SUPPLEMENT) Nguyen Herron Teresa Herron 2023 1 [place] Nguyen Herron [id number] Teresa Herron 2023 2 [employer] (MEDICARE SUPPLEMENT) Nguyen Herron [id number] Teresa Herron Notes Date Note Type Note Provider Name and Address Organization Details Recorded Time 12/14/2022 text/html patient has been making some progress with therapy comes in today for follow-up the injection did help the pain for few weeks but she is starting to have the impingement type pain and catching again with certain activities with her right shoulder Hayden Maya MD [address], [employer], [place], [address], [place] 12/14/2022 13:11:57 2023 text/html patient has some mild arthritis in her shoulder and probably a little degenerative tear of the cuff she was having a fair amount of pain we injected the bursa had her work with the therapist and it has helped quite a bit she comes in today for follow-up did the injection 3 months ago we saw her about a month ago to have her continue working with the therapist. Hayden Maya MD [address], [place], [address], [place] 2023 12:52:24 OBGyn Episode No OBEpisode recorded.
--- OUTSIDE RECORDS SUMMARY | 2024-11-27 14:13 | XMS_ITS | Referral Summary ---
Author Organization [facility] Address [address] [place] [address] Care Team Providers Care Prison Keeper Name Role Phone Praveena Mcfarland MD Primary Care Provider [phone] Paul Lopez MD Unavailable Paz Mejias MD Unavailable + Nathanael VALERIO MD, Hayden Singh Unavailable [phone] Herson Elam MD Unavailable Gee Carrasco MD Unavailable [phone] Irasema Valdez MD Unavailable [phone] Cristhian Rodgers MD Unavailable [phone] Bill Tovar MD Unavailable Encounters Date Type Department Care Team Description 11/27/2024 Results Follow-Up [facility] Cardiology [address] [facility] 8th [place] [address] [place] [address] Irasema Valdez MD 11/26/2024 3:[address] [facility] Endocrinology Metabolism and Lipid [address] 8th [place] [address] [place] [address] S/P tricuspid valve replacement 11/26/[address] [facility] Cardiology [address] [facility] Medical Office Building [address] [place] [address] Irasema Valdez MD 11/26/[address] [place] [address] [place] [address] Natalie Cruz RN 11/26/2024 2:30 PM CDT Office Visit [address] [place] [address] [place] [address] S/P tricuspid valve replacement (Primary Dx); Mixed hyperlipidemia; Chronic diastolic heart failure (HCC) 11/22/[address] [place] [address] Kady Baires 11/22/[address] [place] [address] [place] [address] Kady Baires 11/21/2024 Orders Only [facility] CARDIOLOGY Scanning, Provider 11/15/2024 3:00 PM DIRECTOR OF RECRUITING Office Visit [facility] Surgery [address] [facility] Medical Office Building [address] [place] [phone] Bill Tovar MD Incontinence of feces, unspecified fecal incontinence type (Primary Dx) 11/14/[address] [place] [address] [place] [address] Irasema Valdez MD TAVR follow up 11/12/2024 Results Follow-Up [address] [place] [address] Irasema Valdez MD 11/12/2024 4:02 PM DIRECTOR OF RECRUITING - 11/12/2024 11:59 PM DIRECTOR OF RECRUITING Hospital Encounter [address] [address] S/P tricuspid valve replacement Discharge Disposition: Discharge to home or self care 11/12/[address] [facility] Cardiology [address] [facility] Medical Office Building [address] [place] [address] Carmella Mayorga CMA 11/12/2024 4:00 PM DIRECTOR OF RECRUITING Lab [facility] Endocrinology Metabolism and Lipid [address] [place] [address] S/P tricuspid valve replacement 11/12/2024 Results Follow-Up [facility] Cardiology [facility] [address] [place] [address] [place] [address] Shawanda Maurice NP 11/12/2024 2:30 PM DIRECTOR OF RECRUITING Office Visit 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 Surgery Chanel Kelley NP 10/25/[address] [facility] Cardiology [address] [place] [address] [place] [address] [place] [address] Irasema Valdez MD ppwk 10/23/[address] [facility] Cardiology [address] [place] [address] [place] [address] Irasema Valdez MD 10/22/[address] [facility] Cardiology [facility] [address] [place] [address] [place] [address] Irasema Valdez MD 10/22/[address] [facility] Internal Medicine Chanel Kelley NP 10/22/[address] 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] (Primary Dx); Tricuspid regurgitation, non-Ebstein's related; S/P tricuspid valve replacement Discharge Disposition: Discharge to home or self care 10/18/2024 11:00 AM DIRECTOR OF RECRUITING - 10/18/2024 2:30 PM DIRECTOR OF RECRUITING Surgery [facility] Electrophysiology Lab [address] [place] [address] Irasema Valdez MD Transcatheter Tricuspid Valve Implant (TTVI/TTVR) 10/18/2024 11:07 AM DIRECTOR OF RECRUITING Anesthesia Event [facility] Electrophysiology Lab 1 [place] [address] Chanelle Doyle MD Harkins, Cherice Lynette, NP 10/16/2024 10:30 AM DIRECTOR OF RECRUITING Pre-Admission Testing [facility] [address] [place] [address] Preoperative testing (Primary Dx); Easy bruising 10/02/[address] [facility] Cardiology [address] [place] [address] Advanced Medicine 8th [place] [address] [place] [address] Irasema Valdez MD 09/24/[address] [facility] Cardiology [address] [place] [address] [facility] 8th [place] [address] [place] [address] Irasema Valdez MD procedural inquiry from Last [...] mg total) by mouth every morning 12/09/19 Active diphenoxylate-atro pine (LOMOTIL) 2.5-0.025 mg per tablet Take 2 tablets by mouth every morning 11/21/19 Active simvastatin (ZOCOR) 40 mg tablet Take 1 tablet (40 mg total) by mouth nightly 10/31/19 Active acidophilus-pectin , citrus 100 million cell-10 mg capsule Take 1 tablet by mouth every morning Active ascorbic acid (vitamin C) 1,000 mg tablet Take 1 tablet (1,000 mg total) by mouth as needed (supplement) Active UNABLE TO FINDIndications:cook pplement Take 1 each [...] (six) hours as needed for pain 09/14/20 Active cetirizine (ZyrTEC) 5 mg tablet Take [...] daily 45 tablet 3 11/13/19 25 Active potassium chloride ER (KLOR-CON) 10 mEq CR tablet Take 1 tablet/capsule (10 mEq total) by mouth daily 11/27/19 25 026 Active ferrous sulfate 325 mg (65 mg of elemental iron) tablet Take 1 tablet (325 mg total) by mouth daily with breakfast 30 tablet 11/22/19 24 025 Additional Information Patient not taking.Informant: Self, Reported on 11/15/2024 furosemide (LASIX) 20 mg tablet TAKE 0.5 TABLETS (10 MG TOTAL) BY MOUTH EVERY OTHER DAY 45 tablet 1 10/04/19 25 025 Discontinu ed(Therapy completed) potassium chloride ER 10 mEq CR tablet TAKE 1 TABLET/CAPSULE (10 MEQ TOTAL) BY MOUTH EVERY OTHER DAY 90 tablet 1 10/12/19 25 025 Discontinu ed(Therapy completed) apixaban (ELIQUIS) 5 mg tabletIndications: s/p TTVR Take 1 tablet (5 mg total) by mouth every 12 (twelve) hours 60 tablet 1 10/20/19 25 025 Discontinu ed(Reorder ) Active Problems Problem Noted Date Diagnosed Date Hyperlipidemia 10/19/2024 Assessment & Plan (10/19/2024 11:13 AM DIRECTOR OF RECRUITING): - continue Simvastatin - low fat low cholesterol diet S/P tricuspid valve replacement 10/18/2024 Assessment & Plan (10/19/2024 11:09 AM DIRECTOR OF RECRUITING): S/p TTVR 10/18 with Evoque Remove figure [...] Assessment & Plan (10/17/2024 1:57 PM DIRECTOR OF RECRUITING): Patient with history of symptomatic severe tricuspid [...] Assessment & Plan (10/18/2024 12:05 PM DIRECTOR OF RECRUITING): Goal SBP <160 Assessment & Plan (10/17/2024 1:56 PM DIRECTOR OF RECRUITING): Continue home propranolol, lisinopril Diastolic heart failure 05/03/2024 Assessment & Plan (10/18/2024 2:27 PM DIRECTOR OF RECRUITING): Acute on chronic Diuresis this admission No plans to restart milrinone post-TTVR Shortness of breath 04/30/2024 Tricuspid regurgitation, non-Ebstein's related 0 02/29/2024 Assessment & Plan (10/18/2024 12:05 PM DIRECTOR OF RECRUITING): TTVR 10/18 Aftercare following right knee joint replacement surgery 01/06/2024 History of colonic polyps 10/03/2020 Change in bowel habit 02/08/2020 Lactose intolerance 02/08/2020 Incontinence of feces 06/21/2018 Overview (06/21/2018): Added automatically from request for surgery [id number] Fecal incontinence 08/08/2015 Assessment & Plan (10/16/2024 9:24 PM DIRECTOR OF RECRUITING): 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 status post Medtronic device stimulation - continue home Lomotil GERD (gastroesophageal reflux disease) Assessment & Plan (10/16/2024 9:23 PM DIRECTOR OF RECRUITING): Continue home PPI Resolved Problems Problem Noted [...] file 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:54 AM DIRECTOR OF RECRUITING Gender Identity Female 02/06/2020 12:07 PM CDT Sexual Orientation Not on file Last Filed Vital Signs Vital Sign Reading Time Taken Comments Blood Pressure 118/74 11/26/2024 2:16 PM CDT Pulse 71 11/26/2024 2:16 PM CDT Temperature 36.4 C (97.5 F) 10/20/2024 9:37 AM DIRECTOR OF RECRUITING Respiratory Rate 16 10/20/2024 12:36 PM DIRECTOR OF RECRUITING Oxygen Saturation 94% 11/26/2024 2:16 PM CDT Inhaled Oxygen Concentration - - Weight 63 kg (139 lb) 11/26/2024 2:16 PM CDT Height 154.9 cm (5' 1 ) 11/26/2024 2:16 PM CDT Body Mass Index 26.26 11/26/2024 2:16 PM CDT Plan of Treatment Not on file Medical Devices Implanted Type Area Nurse Researcher Device Identifier Shelf Expiration Date Model / Serial / Lot iMedicare Ramiro Angio-Seal Vip 6fr Closere Device [id number] - [id number] - [id number] Implanted:Qty: 1 on 05/11/2024 by Irasema Valdez MD at [facility] Collagen Right: Groin [employer] Ramiro 01/01/2025 [id number] / [id number] / [id number] Medtronic Inc Neurostimulator Generator 3058 - [id number] - [id number] Implanted:Qty: 1 on 12/17/2022 by Nereyda Kemp MD at [facility] Other - see comments Left: Buttocks Medtronic Inc 12/31/2022 3058 / [id number] / NA Description:Implant pause pe rformed prior to opening implant to sterile field Medtronic Inc Interstim 28cm Quadripolar Mri Broaching Machine Repairer Neurostimulator [id number] - Sna - [id number] Implanted:Qty: 1 on 12/17/2022 by Nereyda Kemp MD at [facility] Other - see comments Right: Sacrum Medtronic Inc 2024 [id number] / NA / [id number] Description:Implant pause pe rformed prior to opening implant to sterile field [employer] Evoque 48mm Transcatheter Tricuspid Heart Valve [id number] - [id number] - [id number] Implanted:Qty: 1 on 10/18/2024 by Irasema Valdez MD at [facility] Prosthetic Valve N/A: Tricuspid Valve [employer] 10/23/2025 [id number] / [id number] / Stimulator Stimulator Left: Hip Vagus Nerve Stimulator- 3 Implanted: 3 (Quantity not on file) Vagus Nerve Stimulator Left: Hip Medtronic [facility] Closure Repair Femoral Artery Suture Mediated Perclose Prostyle 53079-11 - [id number] - [id number] Implanted:Qty: 1 on 10/18/2024 by Irasema Valdez MD at [facility] Vascular Closure Device Left: Femoral Vein [employer] 07/19/2026 63446-72 / [id number] / [id number] [employer] System Closure Repair Femoral Artery Suture Mediated Perclose Prostyle 87839-26 - [id number] - [id number] Implanted:Qty: 1 on 10/18/2024 by Irasema Valdez MD at [facility] Vascular Closure Device Left: Femoral Vein [employer] 07/19/2026 18219-86 / [id number] / [id number] [employer] Cement Bone High Viscosity Gentamicin Radiopaque Single Dose Hemiarthroplpasty Simplex [id number] Pmma 6195-1-010 - [id number] Implanted:Qty: 1 on 11/21/2023 by Herson Elam MD at [facility] Right: Knee [employer] 12/17/2024 6195-1-010 / / [id number] [employer] Cement Bone High Viscosity Gentamicin Radiopaque Single Dose Hemiarthroplpasty Simplex [id number] Pmma 6195-1-010 - [id number] Implanted:Qty: 1 on 11/21/2023 by Herson Elam MD at [facility] Right: Knee [employer] 12/17/2024 6195-1-010 / / [id number] [employer] Attune S+ Cement Fix Bearing Knee 4 Baseplate Tibial [id number] - [id number] Implanted:Qty: 1 on 11/21/2023 by Herson Elam MD at [facility] Right: Knee [employer] 04/18/2033 [id number] / / [id number] [employer] Attune Cemented Posterior Stabilize Knee Right 5 Narrow Component [id number] - [id number] Implanted:Qty: 1 on 11/21/2023 by Herson Elam MD at [facility] Right: Knee [employer] 06/18/2033 [id number] / / [id number] [employer] Attune 35mm Cemented Medialize Knee Dome Patellar Aox Sterile [id number] - [id number] Implanted:Qty: 1 on 11/21/2023 by Herson Elam MD at [facility] Right: Knee [employer] 04/18/2028 [id number] / / [id number] [employer] Attune 6mm Posterior Stabilize Fix Bearing Knee 5 Insert Tibial [id number] - [id number] Implanted:Qty: 1 on 11/21/2023 by Herson Elam MD at [facility] Right: Knee [employer] 05/19/2028 [id number] / / [id number] Explanted Type Area Nurse Researcher Device Identifier Shelf Expiration Date Model / Serial / Lot Medtronic Neuro 3889-28 Interstim 28cm Quadripolar Lead Neurostimulator - [id number] Implanted:Qty: 1 on 08/04/2018 by Nereyda Kemp MD at [facility] Explanted:Qty: 1 on 12/17/2022 at [facility] N/A: Back Medtronic Neuro 04/27/2022 [id number] / / [id number] Medtronic Neuro 3058 Interstim Ii 2inx1.7in 4 Electrode Flatbed Driver Sacral Nerve - [id number] Implanted:Qty: 1 on 08/17/2018 by Nereyda Kemp MD at [facility] Explanted:Qty: 1 on 12/17/2022 by Nereyda Kemp MD at [facility] Medtronic Neuro 11/16/2019 3058 / / Description:Explant disposed of in biohazard waste. Procedures Procedure Name Priority Date/Time Associated Diagnosis Comments MAGNESIUM Routine 11/26/2024 3:30 PM CDT S/P tricuspid valve replacement BASIC METABOLIC PANEL Routine 11/26/2024 3:30 PM CDT S/P tricuspid valve replacement SCAN - LABS 11/21/2024 PRO B-TYPE NATRIURETIC PEPTIDE Routine 11/12/2024 4:02 PM DIRECTOR OF RECRUITING S/P tricuspid valve replacement BASIC METABOLIC PANEL Routine 11/12/2024 4:02 PM DIRECTOR OF RECRUITING S/P tricuspid valve replacement CBC WITHOUT DIFFERENTIAL Routine 11/12/2024 4:02 PM DIRECTOR OF RECRUITING S/P tricuspid valve replacement ECG 12-LEAD Routine 11/12/2024 2:44 PM DIRECTOR OF RECRUITING 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] S/P tricuspid valve replacement TRANSTHORACIC ECHO (TTE) COMPLETE W DOPPLER/CF WO CONTRAST Routine 11/12/2024 2:04 PM DIRECTOR OF RECRUITING Tricuspid regurgitation, non-Ebstein's related ECG 12-LEAD Routine 10/20/2024 5:54 AM DIRECTOR OF RECRUITING EGFR Routine 10/20/2024 4:35 AM DIRECTOR OF RECRUITING DIFFERENTIAL AUTO Routine 10/20/2024 4:3 5 AM DIRECTOR OF RECRUITING BASIC METABOLIC PANEL Routine 10/20/2024 4:35 AM DIRECTOR OF RECRUITING CBC WITH AUTO DIFFERENTIAL Routine 10/20/2024 4:35 AM DIRECTOR OF RECRUITING PHOSPHORUS Routine 10/20/2024 4:35 AM DIRECTOR OF RECRUITING MAGNESIUM Routine 10/20/2024 4:35 AM DIRECTOR OF RECRUITING TRANSTHORACIC ECHO (TTE) COMPLETE W DOPPLER/CF W CONTRAST Pending Discharge 10/19/2024 5:49 PM DIRECTOR OF RECRUITING HEPATIC FUNCTION PANEL STAT 10/19/2024 11:50 AM DIRECTOR OF RECRUITING PROTIME-INR STAT 10/19/2024 11:50 AM DIRECTOR OF RECRUITING XR CHEST PA LATERAL 2 VIEWS IP Routine 10/19/2024 8:19 AM DIRECTOR OF RECRUITING ECG 12-LEAD Routine 10/19/2024 4:24 AM DIRECTOR OF RECRUITING EGFR Routine 10/18/2024 11:26 PM DIRECTOR OF RECRUITING DIFFERENTIAL AUTO Routine 10/18/2024 11:26 PM DIRECTOR OF RECRUITING BASIC METABOLIC PANEL Routine 10/18/2024 11:26 PM DIRECTOR OF RECRUITING CBC WITH AUTO DIFFERENTIAL Routine 10/18/2024 11:26 PM DIRECTOR OF RECRUITING PHOSPHORUS Routine 10/18/2024 11:26 PM DIRECTOR OF RECRUITING MAGNESIUM Routine 10/18/2024 11:26 PM DIRECTOR OF RECRUITING XR CHEST 1 VIEW ED Urgent/IP Urgent 10/18/2024 2:22 PM DIRECTOR OF RECRUITING EGFR Routine 10/18/2024 2:10 PM DIRECTOR OF RECRUITING DIFFERENTIAL AUTO Routine 10/18/2024 2:1 0 PM DIRECTOR OF RECRUITING APTT Routine 10/18/2024 2:10 PM DIRECTOR OF RECRUITING PROTIME-INR Routine 10/18/2024 2:10 PM DIRECTOR OF RECRUITING CBC WITH AUTO DIFFERENTIAL Routine 10/18/2024 2:10 PM DIRECTOR OF RECRUITING COMPREHENSIVE METABOLIC PANEL Routine 10/18/2024 2:10 PM DIRECTOR OF RECRUITING MAGNESIUM Routine 10/18/2024 2:10 PM DIRECTOR OF RECRUITING ECG 12-LEAD STAT 10/18/2024 1:57 PM DIRECTOR OF RECRUITING INTRACARDIAC ECHOCARDIOGRAM Routine 10/18/2024 1:40 PM DIRECTOR OF RECRUITING Tricuspid regurgitation, non-Ebstein's related TRANSCATHETER TRICUSPID VALVE IMPLANT Routine 10/18/2024 1:40 PM DIRECTOR OF RECRUITING Tricuspid regurgitation, non-Ebstein's related NADINE GUIDANCE DURING CARDIAC STRUCTURAL INTVN 96349 Routine 10/18/2024 1:30 PM DIRECTOR OF RECRUITING POCT ACTIVATED CLOTTING TIME, LOW RANGE Routine 10/18/2024 12:52 PM DIRECTOR OF RECRUITING POCT ACTIVATED CLOTTING TIME, LOW RANGE Routine 10/18/2024 12:27 PM DIRECTOR OF RECRUITING POCT ACTIVATED CLOTTING TIME, LOW RANGE Routine 10/18/2024 12:19 PM DIRECTOR OF RECRUITING WV AN PROCEDURE PLACEHOLDER Routine 10/18/2024 11:32 AM DIRECTOR OF RECRUITING WV AN PROCEDURE PLACEHOLDER Routine 10/18/2024 11:32 AM DIRECTOR OF RECRUITING WV AN ELECTIVE ENDOTRACHEAL AIRWAY Routine 10/18/2024 11:32 AM DIRECTOR OF RECRUITING POCT GLUCOSE DEVICE Routine 10/18/2024 10:42 AM DIRECTOR OF RECRUITING B CHECK SAMPLE STAT 10/18/2024 10:40 AM DIRECTOR OF RECRUITING PREPARE RBC Timed 10/18/2024 10:25 AM DIRECTOR OF RECRUITING EGFR Routine 10/18/2024 3:48 AM DIRECTOR OF RECRUITING DIFFERENTIAL AUTO Routine 10/18/2024 3:4 8 AM DIRECTOR OF RECRUITING PROTIME-INR Routine 10/18/2024 3:48 AM DIRECTOR OF RECRUITING CBC WITH AUTO DIFFERENTIAL Routine 10/18/2024 3:48 AM DIRECTOR OF RECRUITING BASIC METABOLIC PANEL Routine 10/18/2024 3:48 AM DIRECTOR OF RECRUITING MAGNESIUM Routine 10/18/2024 3:48 AM DIRECTOR OF RECRUITING PHOSPHORUS Routine 10/18/2024 3:48 AM DIRECTOR OF RECRUITING EGFR Routine 10/17/2024 4:08 AM DIRECTOR OF RECRUITING CBC WITHOUT DIFFERENTIAL Routine 10/17/2024 4:08 AM DIRECTOR OF RECRUITING COMPREHENSIVE METABOLIC PANEL Routine 10/17/2024 4:08 AM DIRECTOR OF RECRUITING EGFR Routine 10/16/2024 12:11 PM DIRECTOR OF RECRUITING Preoperative testing URINALYSIS, MICROSCOPIC ONLY Routine 10/16/2024 12:11 PM DIRECTOR OF RECRUITING Preoperative testing DIFFERENTIAL AUTO Routine 10/16/2024 12:11 PM DIRECTOR OF RECRUITING Preoperative testing CBC WITH AUTO DIFFERENTIAL Routine 10/16/2024 12:11 PM DIRECTOR OF RECRUITING Preoperative testing COMPREHENSIVE METABOLIC PANEL Routine 10/16/2024 12:11 PM DIRECTOR OF RECRUITING Preoperative testing TYPE AND SCREEN 14 DAY Routine 10/16/2024 12:11 PM DIRECTOR OF RECRUITING Preoperative testing PROTIME-INR Routine 10/16/2024 12:11 PM DIRECTOR OF RECRUITING Preoperative testing Easy bruising CPAP APTT ALGORITHM Routine 10/16/2024 12:11 PM DIRECTOR OF RECRUITING Preoperative testing URINALYSIS AND REFLEX TO MICROSCOPIC AND CULTURE Routine 10/16/2024 12:11 PM DIRECTOR OF RECRUITING Preoperative testing ECG 12-LEAD Routine 10/16/2024 11:26 AM DIRECTOR OF RECRUITING Preoperative testing COLONOSCOPY 11/12/2020 12:00 PM DIRECTOR OF RECRUITING from Last 3 Months or Most Recently Relevant to Health Maintenance Results * Magnesium (11/26/2024 3:30 PM CDT) Pathologist [facility] Magnesium 2.1 1.6 - 2.6 mg/dL [facility] Blood 11/26/2024 3:30 PM CDT 11/26/2024 4:14 PM CDT us Irasema Valdez MD LAB BLOOD ORDERABLES Final Resu lt [facility] * (ABNORMAL) Basic metabolic panel (11/26/2024 3:30 PM CDT) Glucose 92 64 - 99 mg/dL [facility] Comment: NONFASTING GLUCOSE RANGE = 64-199 mg/dL [...] PM CDT 11/26/2024 4:14 PM CDT us Irasema Valdez MD LAB BLOOD ORDERABLES Final Resu lt [facility] * SCAN - LABS (11/21/2024) us Provider Scanning Final Result * (ABNORMAL) Pro B-type natriuretic peptide (11/12/2024 4:02 PM DIRECTOR OF RECRUITING) NT-proBNP 1,758(H) <=450 pg/mL Comment: Interpretive Comments: [...] Date: 2018. Blood 11/12/2024 4:02 PM DIRECTOR OF RECRUITING 11/12/2024 6:34 PM DIRECTOR OF RECRUITING Shawanda Maurice NP LAB BLOOD ORDERABLES Final R esult [facility] [place] [address] * (ABNORMAL) CBC without differential (11/12/2024 4:02 PM DIRECTOR OF RECRUITING) White Blood Count 4.8 3.6 - 11.2 [...] - [facility] Blood 11/12/2024 4:02 PM DIRECTOR OF RECRUITING 11/12/2024 4:27 PM DIRECTOR OF RECRUITING Shawanda Maurice NP LAB BLOOD ORDERABLES Final R esult Performing Organization Address City/[facility] Co de Phone Number [facility] CORE [facility] * (ABNORMAL) Basic metabolic panel (11/12/2024 4:02 PM DIRECTOR OF RECRUITING) Glucose 105(H) 64 - 99 mg/dL [facility] [...] [facility] Blood 11/12/2024 4:02 PM DIRECTOR OF RECRUITING 11/12/2024 4:27 PM DIRECTOR OF RECRUITING Shawanda Greerdle LAB BLOOD ORDERABLES Final R esult Performing Organization Address [facility] Co de Phone Number [facility] CORE [facility] * ECG 12 lead (11/12/2024 2:44 PM DIRECTOR OF RECRUITING) Shawanda Greerdle TECHNOLOGY ENGINEER ECG ORDERABLES Edited Resul t - Final * TRANSTHORACIC ECHO (TTE) COMPLETE W DOPPLER/CF WO CONTRAST (11/12/2024 2:04 PM DIRECTOR OF RECRUITING) LV EF 60-65 % CONS SCIMAGE Anatomical Region Laterality Modality Ultrasound 11/12/2024 12:5 9 PM DIRECTOR OF RECRUITING Narrative 11/12/2024 2:46 PM DIRECTOR OF RECRUITING [facility] [place] [address] Transthoracic Echocardiographic Report Patient Name: STACY HERRON : 1945 (79y 9m) Gender: F Study Date: 11/12/2024 12:59:37 PM Ht(Inch): 61 Wt(Lb): 136.02 BSA: 1.63 Acoustic Sensor Operator: Shy Kellogg RDCS Location: [facility] Order Provider: IRASEMA VALDEZ Heart Rate: 67 BMI: 25.7 BP: 136 / 84 Quality: The study images were of technically good quality. Ref Provider: IRASEMA VALDEZ PROCEDURES: Echocardiographic Report: ([id number], [id number]) Transthoracic complete echo with strain imaging, 2D, [...] Rom Breen M.D. 11/12/2024 2:46:23 PM DIRECTOR OF RECRUITING Electronically Signed By: Rom Breen M.D. 11/12/2024 2:46:23 PM DIRECTOR OF RECRUITING Procedure Note Rom Breen MD - 11/12/2024 [facility] [place] [address] [place] [address] Transthoracic Echocardiographic Report Patient Name: STACY HERRON : 1945 (79y 9m) Gender: F Study Date: 11/12/2024 12:59:37 PM Ht(Inch): 61 Wt(Lb): 136.02 BSA: 1.63 Acoustic Sensor Operator: Shy Kellogg RDCS Location: [facility] Order Provider:IRASEMA VALDEZ Heart Rate: 67 BMI: 25.7 BP: 136 / 84 Quality: The study images were oftechnically good quality. Ref Provider: IRASEMA VALDEZ PROCEDURES: Echocardiographic Report: ([id number], [id number]) Transthoracic complete echo withstrain imaging, 2D, spectral [...] study completed on 10-19-2024. No change compared [facility] study. ATTESTATION: I have reviewed and [...] Rom Breen M.D. 11/12/2024 2:46:23 PM DIRECTOR OF RECRUITING Electronically Signed By: Rom Breen M.D. 11/12/2024 2:46:23 PM DIRECTOR OF RECRUITING Irasema Valdez MD CV ECHO PROCEDURES Final Result * ECG 12 lead (10/20/2024 5:54 AM DIRECTOR OF RECRUITING) Pathologist [facility] Ventricular Rate EKG/Min 103 BPM [facility] Atrial Rate 103 BPM [facility] WV-Interval (MSEC) 154 ms [facility] HOSPITAL QRS-Interval (MSEC) 112 ms [facility] QT-Interval (MSEC) 352 ms [facility] QTc 461 ms [facility] P [place] 49 degrees [facility] R [place] 49 degrees [facility] T [place] -25 degrees [facility] Diagnosis Sinus tachycardia Incomplete right bundle branch block ST & T wave abnormality, consider inferior ischemia ST & T wave abnormality, consider anterolateral ischemia Abnormal ECG Confirmed by Deborah Stacy MD ([id number]) on 10/22/2024 6:39:54 PM [facility] 10/20/2024 5:54 AM DIRECTOR OF RECRUITING 10/22/2024 6:39 PM DIRECTOR OF RECRUITING us Chanel Kelley TECHNOLOGY ENGINEER ECG ORDERABLES Final Resul t [facility] * eGFR (10/20/2024 4:35 AM DIRECTOR OF RECRUITING) eGFR 69 >=60 mL/min/1. 73 m2 Comment: [...] reviewed 2021. Blood 10/20/2024 4:35 AM DIRECTOR OF RECRUITING 10/20/2024 5:15 AM DIRECTOR OF RECRUITING Terri Soni TECHNOLOGY ENGINEER LAB BLOOD ORDERABLES Final Result [facility] [place] [address] * (ABNORMAL) Differential, auto (10/20/2024 4:35 AM DIRECTOR OF RECRUITING) Neutrophil abs 7.6(H) 1.5 - 6.5 K/cumm Imm gran abs 0.0 0.0 - 0.1 K/cumm [facility] Lymphocyte abs 1.1 0.8 - 3.3 K/cumm [facility] Monocyte abs 0.9(H) 0.2 - 0.8 K/cumm [facility] Eosinophil abs 0.0 0.0 - 0.5 K/cumm [facility] Basophil abs 0.0 0.0 - 0.1 K/cumm [facility] Neutrophil pct 79.0 % [facility] Comment: Interpretive Data Percent cell count reference ranges are not reported, since discordance with absolute values may lead to misinterpretation of CBC data. Current Interpretive Data was last revised on 2017. Imm gran pct 0.4 % [facility] Comment: Interpretive Data Percent cell count reference ranges are not reported, since discordance with absolute values may lead to misinterpretation of CBC data. Current Interpretive Data was last revised on 2017. Lymphocyte pct 10.8 % [facility] Comment: Interpretive Data Percent cell count reference ranges are not reported, since discordance with absolute values may lead to misinterpretation of CBC data. Current Interpretive Data was last revised on 2017. Monocyte pct 9.4 % [facility] Comment: Interpretive Data Percent cell count reference ranges are not reported, since discordance with absolute values may lead to misinterpretation of CBC data. Current Interpretive Data was last revised on 2017. Eosinophil pct 0.2 % [facility] Comment: Interpretive Data Percent cell count reference ranges are not reported, since discordance with absolute values may lead to misinterpretation of CBC data. Current Interpretive Data was last revised on 2017. Basophil pct 0.2 % [facility] Comment: Interpretive Data Percent cell count reference ranges are not reported, since discordance with absolute values may lead to misinterpretation of CBC data. Current Interpretive Data was last revised on 2017. Blood 10/20/2024 4:35 AM DIRECTOR OF RECRUITING 10/20/2024 5:15 AM DIRECTOR OF RECRUITING us Terri Soni NP LAB BLOOD ORDERABLES Final Result [facility] Department [place] [address] * (ABNORMAL) CBC with auto differential (10/20/2024 4:35 AM DIRECTOR OF RECRUITING) [facility] WBC 9.7 3.8 - 9.9 K/cumm Hgb 11.0(L) 11.9 - 15.5 g/dL [facility] Hct 32.5(L) 35.6 - 45.5 % [facility] Plt 139(L) 150 - 400 K/cumm [facility] MPV 10.3 9.1 - 12.3 fL [facility] RBC 3.57(L) 3.90 - 5.20 M/cumm [facility] MCV 91.0 81.3 - 96.4 fL [facility] MCH 30.8 27.1 - 33.3 pg [facility] MCHC 33.8 32.3 - 35.7 g/dL [facility] RDW CV 14.1 11.1 - 14.9 % [facility] RDW SD 47.2 35.7 - 48.1 fL [facility] NRBC abs 0.00 0.00 - 0.01 K/cumm [facility] Blood 10/20/2024 4:35 AM DIRECTOR OF RECRUITING 10/20/2024 5:15 AM DIRECTOR OF RECRUITING Terri Soni TECHNOLOGY ENGINEER LAB BLOOD ORDERABLES Final Result Performing Organization Address [facility] de Phone Number [facility] Department [place] [employer] [place] [address] * Phosphorus (10/20/2024 4:35 AM DIRECTOR OF RECRUITING) [facility] Phosphorus, pl 2.8 2.3 - 4.5 mg/dL Blood 10/20/2024 4:35 AM DIRECTOR OF RECRUITING 10/20/2024 5:15 AM DIRECTOR OF RECRUITING Terri Soni TECHNOLOGY ENGINEER LAB BLOOD ORDERABLES Final Result Performing Organization Address [facility] Co de Phone Number [facility] Department [place] [address] * Magnesium (10/20/2024 4:35 AM DIRECTOR OF RECRUITING) Magnesium 1.8 1.4 - 2.5 mg/dL Blood 10/20/2024 4:35 AM DIRECTOR OF RECRUITING 10/20/2024 5:15 AM DIRECTOR OF RECRUITING Terri Soni TECHNOLOGY ENGINEER LAB BLOOD ORDERABLES Final Result [facility] Department [place] [address] * Basic metabolic panel (10/20/2024 4:35 AM DIRECTOR OF RECRUITING) Pathologist [facility] Sodium 140 135 - 145 mmol/L Potassium, pl 4.0 3.3 - 4.9 mmol/L [facility] Chloride 104 97 - 110 mmol/L [facility] CO2 28 22 - 32 mmol/L [facility] Anion gap 8 2 - 15 mmol/L [facility] BUN 15 6 - 25 mg/dL [facility] Creatinine 0.87 0.60 - 1.10 mg/dL [facility] Glucose 95 70 - 199 mg/dL [facility] Comment: Interpretive Data Fasting glucose >/= [...] 2022. Calcium 8.8 8.5 - 10.3 mg/dL [facility] Blood 10/20/2024 4:35 AM DIRECTOR OF RECRUITING 10/20/2024 5:15 AM DIRECTOR OF RECRUITING Terri Soni TECHNOLOGY ENGINEER LAB BLOOD ORDERABLES Final Result [facility] [place] [address] * TRANSTHORACIC ECHO (TTE) COMPLETE W DOPPLER/CF W CONTRAST (10/19/2024 5:49 PM DIRECTOR OF RECRUITING) LV EF % CONS SCIMAGE Anatomical Region Laterality Modality Ultrasound 10/19/2024 4:43 PM DIRECTOR OF RECRUITING Narrative 10/22/2024 11:13 AM DIRECTOR OF RECRUITING [facility] [place] [address] Transthoracic Echocardiographic Report Patient Name: STACY HERRON : 1945 (79y 9m) Gender: F Study Date: 10/19/2024 04:43:04 PM Ht(Inch): 61 Wt(Lb): 134.92 BSA: 1.62 Acoustic Sensor Operator: Beth Guajardo [facility] Location: [id number] Order Provider: CHANEL KELLEY BMI: 25.49 BP: 115 / 84 Quality: The study images were of technically good quality. Ref Provider: CHANEL KELLEY PROCEDURES: Echocardiographic Report: ([id number], [id number], [id number]) Transthoracic complete echo with strain imaging and [...] [ 1.71 - 5.00 ] PV Accel Talbot 763.32 cm/sec2 AoR Diam 2D 2.93 cm [...] Bk Castillo MD 10/22/2024 10:57:14 AM DIRECTOR OF RECRUITING Electronically Signed By: Rom Breen M.D. 10/22/2024 11:12:10 AM DIRECTOR OF RECRUITING Procedure Note Rom Breen MD - 10/22/2024 [facility] [place] [address] Transthoracic Echocardiographic Report Patient Name: STACY HERRON : 1945 (79y 9m) Gender: F Study Date: 10/19/2024 04:43:04 PM Ht(Inch): 61 Wt(Lb): 134.92 BSA: 1.62 Acoustic Sensor Operator: Beth Guajardo [facility] Location: [id number] Order Provider:CHANEL KELLEY BMI: 25.49 BP: 115 / 84 Quality: The study images were oftechnically good quality. Ref Provider: CHANEL KELLEY PROCEDURES: Echocardiographic Report: ([id number], [id number]) Transthoracic completeecho with strain imaging and contrast, [...] [ 46.00 - 106.00 ] MV Decel [id number] msec [ 104.00 - 258.00 ] ESV [...] [ 1.71 - 5.00 ] PV Accel Jlrdj807.32 cm/sec2 AoR Diam 2D 2.93 cm [ [...] Bk Castillo MD 10/22/2024 10:57:14 AM DIRECTOR OF RECRUITING Electronically Signed By: Rom Breen M.D. 10/22/2024 11:12:10 AM DIRECTOR OF RECRUITING us Chanel Kelley NP CV ECHO PROCEDURES Final Re sult * Protime-INR (10/19/2024 11:50 AM DIRECTOR OF RECRUITING) Pathologist [facility] PT 11.0 9.7 - 13.0 sec INR 1.02 0.90 - 1.20 [facility] Comment: Interpretive data Oral anticoagulant therapeutic ranges: Venous thromboembolism prophylaxis or treatment: 2.0-3.0 CARDIOLOGY Standard range: 2.0-3.0 High-intensity range: 2.5-3.5 Refer to indication-specific guidelines for appropriate target ranges for prosthetic heart valve replacement. Current interpretive data was last revised on 2019. Blood 10/19/2024 11:5 0 AM DIRECTOR OF RECRUITING 10/19/2024 12:38 PM DIRECTOR OF RECRUITING Narrative [facility] - 10/19/2024 1:02 PM DIRECTOR OF RECRUITING Baseline prior to apixaban initiation. us Isaiah Crockett NP LAB BLOOD ORDERABLES Final R esult [facility] Department [place] [address] * (ABNORMAL) Hepatic function panel (10/19/2024 11:50 AM DIRECTOR OF RECRUITING) Pathologist [facility] Bilirubin, total 0.5 0.1 - 1.2 mg/dL Bilirubin, direct <0.2 0.1 - 0.3 mg/dL [facility] Protein, pl 7.5 6.5 - 8.5 g/dL [facility] Albumin 4.5 3.5 - 5.0 g/dL [facility] Alk phos 95 40 - 130 Units/L [facility] ALT 24 7 - 45 Units/L [facility] AST 55(H) 10 - 45 Units/L [facility] Blood 10/19/2024 11:5 0 AM DIRECTOR OF RECRUITING 10/19/2024 12:40 PM DIRECTOR OF RECRUITING Narrative [facility] - 10/19/2024 1:10 PM DIRECTOR OF RECRUITING Baseline prior to apixaban initiation. Isaiah Crockett NP LAB BLOOD ORDERABLES Final R esult [facility] Department [place] [address] * XR Chest PA Lateral 2 Views (10/19/2024 8:19 AM DIRECTOR OF RECRUITING) Anatomical Region Laterality Modality Body, Chest N/A Computed Radiogr aphy 10/19/2024 11:0 9 AM DIRECTOR OF RECRUITING Impressions 10/19/2024 11:45 AM DIRECTOR OF RECRUITING Comparison is made to radiograph dated 10/18/2024 [...] Tolentino M.D. Narrative 10/19/2024 11:45 AM DIRECTOR OF RECRUITING EXAMINATION: 2 view chest radiograph Procedure Note [...] by: Rodrigo Tolentino M.D. us Chanel Kelley TECHNOLOGY ENGINEER IMG XR PROCEDURES Final Res ult * ECG 12 lead (10/19/2024 4:24 AM DIRECTOR OF RECRUITING) Ventricular Rate EKG/Min 102 BPM [facility] Atrial Rate 102 BPM [facility] WV-Interval (MSEC) 154 ms [facility] QRS-Interval (MSEC) 106 ms [facility] QT-Interval (MSEC) 376 ms [facility] QTc 490 ms [facility] P [place] 50 degrees [facility] R [place] 47 degrees [facility] T [place] -17 degrees [facility] Diagnosis Sinus tachycardia Low voltage QRS Incomplete right bundle branch block ST & T wave abnormality, consider anterior ischemia Abnormal ECG When compared with ECG of 18-OCT-2024 13:57, No significant change was found Confirmed by BENNY ADHIKARI M.D ([id number]) on 10/19/2024 10:23:40 AM [facility] 10/19/2024 4:24 AM DIRECTOR OF RECRUITING 10/19/2024 10:23 AM DIRECTOR OF RECRUITING us Chanel Kelley NP ECG ORDERABLES Final Resul t [facility] [place] * eGFR (10/18/2024 11:26 PM DIRECTOR OF RECRUITING) eGFR 60 >=60 mL/min/1. 73 m2 Comment: [...] 2021. Blood 10/18/2024 11:2 6 PM DIRECTOR OF RECRUITING 10/18/2024 11:49 PM DIRECTOR OF RECRUITING us Terri Soni NP LAB BLOOD ORDERABLES Final Result [facility] Department [place] [address] * (ABNORMAL) Differential, auto (10/18/2024 11:26 PM DIRECTOR OF RECRUITING) Neutrophil abs 7.1(H) 1.5 - 6.5 K/cumm Imm gran abs 0.0 0.0 - 0.1 K/cumm [facility] Lymphocyte abs 0.5(L) 0.8 - 3.3 K/cumm [facility] Monocyte abs 0.4 0.2 - 0.8 K/cumm [facility] Eosinophil abs 0.0 0.0 - 0.5 K/cumm [facility] Basophil abs 0.0 0.0 - 0.1 K/cumm [facility] Neutrophil pct 88.7 % [facility] Comment: Interpretive Data Percent cell count reference ranges are not reported, since discordance with absolute values may lead to misinterpretation of CBC data. Current Interpretive Data was last revised on 2017. Imm gran pct 0.3 % [facility] Comment: Interpretive Data Percent cell count reference ranges are not reported, since discordance with absolute values may lead to misinterpretation of CBC data. Current Interpretive Data was last revised on 2017. Lymphocyte pct 6.4 % [facility] Comment: Interpretive Data Percent cell count reference ranges are not reported, since discordance with absolute values may lead to misinterpretation of CBC data. Current Interpretive Data was last revised on 2017. Monocyte pct 4.6 % [facility] Comment: Interpretive Data Percent cell count reference ranges are not reported, since discordance with absolute values may lead to misinterpretation of CBC data. Current Interpretive Data was last revised on 2017. Eosinophil pct 0.0 % [facility] Comment: Interpretive Data Percent cell count reference ranges are not reported, since discordance with absolute values may lead to misinterpretation of CBC data. Current Interpretive Data was last revised on 2017. Basophil pct 0.0 % [facility] Comment: Interpretive Data Percent cell count reference ranges are not reported, since discordance with absolute values may lead to misinterpretation of CBC data. Current Interpretive Data was last revised on 2017. Blood 10/18/2024 11:2 6 PM DIRECTOR OF RECRUITING 10/18/2024 11:50 PM DIRECTOR OF RECRUITING Terri Soni TECHNOLOGY ENGINEER LAB BLOOD ORDERABLES Final Result Performing Organization Address City/[facility]/ZIP Co de Phone Number [facility] [place] [address] * (ABNORMAL) CBC with auto differential (10/18/2024 11:26 PM DIRECTOR OF RECRUITING) WBC 8.0 3.8 - 9.9 K/cumm Hgb 11.8(L) 11.9 - 15.5 g/dL [facility] Hct 36.3 35.6 - 45.5 % [facility] Plt 189 150 - 400 K/cumm [facility] MPV 10.0 9.1 - 12.3 fL [facility] RBC 3.96 3.90 - 5.20 M/cumm [facility] MCV 91.7 81.3 - 96.4 fL [facility] MCH 29.8 27.1 - 33.3 pg [facility] MCHC 32.5 32.3 - 35.7 g/dL [facility] RDW CV 13.6 11.1 - 14.9 % [facility] RDW SD 46.4 35.7 - 48.1 fL [facility] NRBC abs 0.00 0.00 - 0.01 K/cumm [facility] Blood 10/18/2024 11:2 6 PM DIRECTOR OF RECRUITING 10/18/2024 11:50 PM DIRECTOR OF RECRUITING Terri Soni TECHNOLOGY ENGINEER LAB BLOOD ORDERABLES Final Result Performing Organization Address City/[facility]/ZIP Co de Phone Number [facility] [place] [address] * Phosphorus (10/18/2024 11:26 PM DIRECTOR OF RECRUITING) Pathologist [facility] Phosphorus, pl 2.4 2.3 - 4.5 mg/dL Blood 10/18/2024 11:2 6 PM DIRECTOR OF RECRUITING 10/18/2024 11:49 PM DIRECTOR OF RECRUITING Terri Soni TECHNOLOGY ENGINEER LAB BLOOD ORDERABLES Final Result [facility] [place] [address] * Magnesium (10/18/2024 11:26 PM DIRECTOR OF RECRUITING) [facility] Magnesium 1.9 1.4 - 2.5 mg/dL Blood 10/18/2024 11:2 6 PM DIRECTOR OF RECRUITING 10/18/2024 11:49 PM DIRECTOR OF RECRUITING Terri Soni TECHNOLOGY ENGINEER LAB BLOOD ORDERABLES Final Result [facility] [place] [address] * (ABNORMAL) Basic metabolic panel (10/18/2024 11:26 PM DIRECTOR OF RECRUITING) [facility] Sodium 141 135 - 145 mmol/L Potassium, pl 4.4 3.3 - 4.9 mmol/L [facility] Chloride 105 97 - 110 mmol/L [facility] CO2 23 22 - 32 mmol/L [facility] Anion gap 13 2 - 15 mmol/L [facility] BUN 20 6 - 25 mg/dL [facility] Creatinine 0.97 0.60 - 1.10 mg/dL [facility] Glucose 240(H) 70 - 199 mg/dL [facility] Comment: Interpretive Data Fasting glucose >/= [...] [facility] Blood 10/18/2024 11:2 6 PM DIRECTOR OF RECRUITING 10/18/2024 11:49 PM DIRECTOR OF RECRUITING us Terri Soni NP LAB BLOOD ORDERABLES Final Result [facility] [place] [address] * XR Chest 1 view (10/18/2024 2:22 PM DIRECTOR OF RECRUITING) Anatomical Region Laterality Modality Body, Chest N/A Computed Radiogr aphy 10/18/2024 3:07 PM DIRECTOR OF RECRUITING Impressions 10/18/2024 4:23 PM DIRECTOR OF RECRUITING Comparison is made to chest radiograph of [...] Rubina Hernandez M.D. Narrative 10/18/2024 4:23 PM DIRECTOR OF RECRUITING EXAMINATION: 1 view chest radiograph Procedure Note Rubina Hernandez MD - 10/18/2024 EXAMINATION: 1 view chest radiograph IMPRESSION: Comparison is made to chest radiograph of 11/09/2023. Transcatheter tricuspid valve replacement. Mild left basilar atelectasis. No pleural effusion. No pulmonary edema. No pneumothorax. Cardiomediastinal silhouette is unchanged. Dictated by: Mikhail Lue, M.D. The radiology attending physician has personally reviewed this study, and had reviewed and/or edited this written report and agrees with it. Electronically signed by: Rubina Hernandez M.D. Chanel Kelley NP IMG XR PROCEDURES Final Res ult * eGFR (10/18/2024 2:10 PM DIRECTOR OF RECRUITING) eGFR 63 >=60 mL/min/1. 73 m2 Comment: [...] reviewed 2021. Blood 10/18/2024 2:10 PM DIRECTOR OF RECRUITING 10/18/2024 2:25 PM DIRECTOR OF RECRUITING Chanel Kelley NP LAB BLOOD ORDERABLES Final Result [facility] Department [place] [address] * Differential, auto (10/18/2024 2:10 PM DIRECTOR OF RECRUITING) Neutrophil abs 4.8 1.5 - 6.5 K/cumm Imm gran abs 0.0 0.0 - 0.1 K/cumm [facility] Lymphocyte abs 0.8 0.8 - 3.3 K/cumm [facility] Monocyte abs 0.2 0.2 - 0.8 K/cumm [facility] Eosinophil abs 0.0 0.0 - 0.5 K/cumm [facility] Basophil abs 0.0 0.0 - 0.1 K/cumm [facility] Neutrophil pct 81.5 % [facility] Comment: Interpretive Data Percent cell count reference ranges are not reported, since discordance with absolute values may lead to misinterpretation of CBC data. Current Interpretive Data was last revised on 2017. Imm gran pct 0.5 % [facility] Comment: Interpretive Data Percent cell count reference ranges are not reported, since discordance with absolute values may lead to misinterpretation of CBC data. Current Interpretive Data was last revised on 2017. Lymphocyte pct 13.9 % [facility] Comment: Interpretive Data Percent cell count reference ranges are not reported, since discordance with absolute values may lead to misinterpretation of CBC data. Current Interpretive Data was last revised on 2017. Monocyte pct 3.3 % [facility] Comment: Interpretive Data Percent cell count reference ranges are not reported, since discordance with absolute values may lead to misinterpretation of CBC data. Current Interpretive Data was last revised on 2017. Eosinophil pct 0.5 % [facility] Comment: Interpretive Data Percent cell count reference ranges are not reported, since discordance with absolute values may lead to misinterpretation of CBC data. Current Interpretive Data was last revised on 2017. Basophil pct 0.3 % [facility] Comment: Interpretive Data Percent cell count reference ranges are not reported, since discordance with absolute values may lead to misinterpretation of CBC data. Current Interpretive Data was last revised on 2017. Blood 10/18/2024 2:10 PM DIRECTOR OF RECRUITING 10/18/2024 2:14 PM DIRECTOR OF RECRUITING us Chanel Kelley NP LAB BLOOD ORDERABLES Final Result [facility] Department [place] [address] * (ABNORMAL) CBC with auto differential (10/18/2024 2:10 PM DIRECTOR OF RECRUITING) WBC 5.8 3.8 - 9.9 K/cumm Hgb 11.7(L) 11.9 - 15.5 g/dL [facility] Hct 34.6(L) 35.6 - 45.5 % [facility] Plt 202 150 - 400 K/cumm [facility] MPV 9.9 9.1 - 12.3 fL [facility] RBC 3.83(L) 3.90 - 5.20 M/cumm [facility] MCV 90.3 81.3 - 96.4 fL [facility] MCH 30.5 27.1 - 33.3 pg [facility] MCHC 33.8 32.3 - 35.7 g/dL [facility] RDW CV 13.6 11.1 - 14.9 % [facility] RDW SD 45.2 35.7 - 48.1 fL [facility] NRBC abs 0.00 0.00 - 0.01 K/cumm [facility] Blood 10/18/2024 2:10 PM DIRECTOR OF RECRUITING 10/18/2024 2:14 PM DIRECTOR OF RECRUITING Chanel Kelley NP LAB BLOOD ORDERABLES Final Result Performing Organization Address City/[facility] de Phone Number [facility] Department [place] [employer] [place] [address] * (ABNORMAL) aPTT (10/18/2024 2:10 PM DIRECTOR OF RECRUITING) [facility] aPTT 66(H) 28 - 38 sec Comment: Interpretive Data Heparin therapeutic range: 66.0 - 100.0 seconds. Range based on correlation with therapeutic heparin activity range of 0.3 - 0.7 Units/mL. Current interpretive data was last revised on 2023. Blood 10/18/2024 2:10 PM DIRECTOR OF RECRUITING 10/18/2024 2:14 PM DIRECTOR OF RECRUITING Chanel Kelley NP LAB BLOOD ORDERABLES Final Result Performing Organization Address [facility] Co de Phone Number [facility] [place] [employer] [place] [address] * (ABNORMAL) Protime-INR (10/18/2024 2:10 PM DIRECTOR OF RECRUITING) [facility] PT 13.1(H) 9.7 - 13.0 sec INR 1.21(H) 0.90 - 1.20 [facility] Comment: Interpretive data Oral anticoagulant therapeutic ranges: Venous thromboembolism prophylaxis or treatment: 2.0-3.0 CARDIOLOGY Standard range: 2.0-3.0 High-intensity range: 2.5-3.5 Refer to indication-specific guidelines for appropriate target ranges for prosthetic heart valve replacement. Current interpretive data was last revised on 2019. Blood 10/18/2024 2:10 PM DIRECTOR OF RECRUITING 10/18/2024 2:14 PM DIRECTOR OF RECRUITING Chanel Kelley NP LAB BLOOD ORDERABLES Final Result Performing Organization Address [facility] de Phone Number [facility] [place] [address] * Magnesium (10/18/2024 2:10 PM DIRECTOR OF RECRUITING) [facility] Magnesium 1.9 1.4 - 2.5 mg/dL Blood 10/18/2024 2:10 PM DIRECTOR OF RECRUITING 10/18/2024 2:14 PM DIRECTOR OF RECRUITING Chanel Kelley NP LAB BLOOD ORDERABLES Final Result Performing Organization Address [facility] de Phone Number [facility] [place] [address] * (ABNORMAL) Comprehensive metabolic panel (10/18/2024 2:10 PM DIRECTOR OF RECRUITING) [facility] Sodium 142 135 - 145 mmol/L Potassium, pl 4.2 3.3 - 4.9 mmol/L [facility] Chloride 108 97 - 110 mmol/L [facility] CO2 24 22 - 32 mmol/L [facility] Anion gap 10 2 - 15 mmol/L [facility] BUN 20 6 - 25 mg/dL [facility] Creatinine 0.93 0.60 - 1.10 mg/dL [facility] Glucose 123 70 - 199 mg/dL [facility] Comment: Interpretive Data Fasting glucose >/= [...] 2022. Calcium 9.2 8.5 - 10.3 mg/dL [facility] Bilirubin, total 0.5 0.1 - 1.2 mg/dL [facility] Protein, pl 6.6 6.5 - 8.5 g/dL [facility] Albumin 4.0 3.5 - 5.0 g/dL [facility] Alk phos 78 40 - 130 Units/L [facility] ALT 20 7 - 45 Units/L [facility] AST 50(H) 10 - 45 Units/L [facility] Blood 10/18/2024 2:10 PM DIRECTOR OF RECRUITING 10/18/2024 2:14 PM DIRECTOR OF RECRUITING us Chanel Kelley NP LAB BLOOD ORDERABLES Final Result Performing Organization Address City/State/[facility] Co de Phone Number [facility] One [facility] [place] [address] * ECG 12 lead (10/18/2024 1:57 PM DIRECTOR OF RECRUITING) Pathologist [facility] Ventricular Rate EKG/Min 88 BPM [facility] Atrial Rate 88 BPM [facility] WV-Interval (MSEC) 162 ms [facility] QRS-Interval (MSEC) 112 ms [facility] QT-Interval (MSEC) 402 ms [facility] QTc 486 ms [facility] P [place] 60 degrees [facility] R [place] 69 degrees [facility] T [place] -27 degrees [facility] Diagnosis Normal sinus rhythm Incomplete right bundle branch block ST & T wave abnormality, consider inferior ischemia ST & T wave abnormality, consider anterior ischemia Prolonged QT Abnormal ECG When compared with ECG of 16-OCT-2024 11:26, Right bundle branch block is new Confirmed by MARV GARCIA M.D ([id number]) on 10/18/2024 4:04:39 PM [facility] [employer] 10/18/2024 1:57 PM DIRECTOR OF RECRUITING 10/18/2024 4:04 PM DIRECTOR OF RECRUITING us Chanel Kelley NP ECG ORDERABLES Final Resul t [facility] [employer] [facility] * TRANSCATHETER TRICUSPID VALVE IMPLANT, INTRACARDIAC ECHOCARDIOGRAM (10/18/2024 1:40 PM DIRECTOR OF RECRUITING) Anatomical Region Laterality Modality X-Ray Angiograph y Narrative 10/18/2024 2:46 PM DIRECTOR OF RECRUITING Cardiac Catheterization Transcatheter Tricuspid Valve Replacement Name: [...] Perioperative antibiotics TTE in AM Transfer to [facility] Irasema Valdez MD email operations manager Co-Department Store General Manager of Valvular Heart Disease us Cristhian Rodgers MD CV CARDIAC CATH PROCEDURES Fi nal Result * NADINE Guidance During Cardiac Structural Intvn 90003 (10/18/2024 1:30 PM DIRECTOR OF RECRUITING) LV EF % CONS SCIMAGE BSA 1.64 m2 CONS SCIMAGE Anatomical Region Laterality Modality Echocardiography 10/18/2024 11:3 7 AM DIRECTOR OF RECRUITING Narrative 10/18/2024 3:47 PM DIRECTOR OF RECRUITING [facility] [place] [address] Transesophageal Echocardiographic Report Patient Name: STACY HERRON : 1945 (79y 9m) Gender: F Study Date: 10/18/2024 11:37:56 AM Ht(Inch): Wt(Lb): BSA: Acoustic Sensor Operator: Location: 5637 Order Provider: DEBORAH STACY BMI: Quality: Good Ref Provider: DEBORAH STACY PROCEDURES: Transesophageal Echo Report: [id number] Echocardiography, transesophageal (NADINE) for guidance of a [...] anesthesia. The probe was passed by the oven drier tender. Standard views were obtained in the transgastric, [...] Deborah Stacy MD 10/18/2024 3:46:36 PM DIRECTOR OF RECRUITING Electronically Signed By: Deborah Stacy MD 10/18/2024 3:46:36 PM DIRECTOR OF RECRUITING Procedure Note Deborah Stacy MD - 10/18/2024 [facility] [place] [address] Transesophageal Echocardiographic Report Patient Name: STACY HERRON : 1945 (79y 9m) Gender: F Study Date: 10/18/2024 11:37:56 AM Ht(Inch): Wt(Lb): BSA: Acoustic Sensor Operator: Location: 5637 Order Provider: DEBORAH STACY BMI: Quality: Good Ref Provider: DEBORAH STACY PROCEDURES: Transesophageal Echo Report: [id number] Echocardiography, transesophageal (NADINE)for guidance of a transcatheter [...] anesthesia. The probe was passed by the oven drier tender. Standardviews were obtained in the transgastric, mid [...] the tricuspid valve along with intraprocedural guidance [id number]. 5. Structral NADINE performed to guide TTVR: [...] Deborah Stacy MD 10/18/2024 3:46:36 PM DIRECTOR OF RECRUITING Electronically Signed By: Deborah Stacy MD 10/18/2024 3:46:36 PM DIRECTOR OF RECRUITING us Deborah Stacy MD CV ECHO PROCEDURES Final Resul t * (ABNORMAL) POCT Activated clotting time, low range (10/18/2024 12:52 PM DIRECTOR OF RECRUITING) ACT 316(H) 123 - 168 sec POC Performer [id number] [facility] POC Device Number [id number] [facility] Blood 10/18/2024 12:5 2 PM DIRECTOR OF RECRUITING 10/18/2024 12:52 PM DIRECTOR OF RECRUITING Cristhian Rodgers MD LAB POCT ORDERABLES - DEVICE Final Result Performing Organization Address [facility] Co de Phone Number [facility] [employer] [address] * (ABNORMAL) POCT Activated clotting time, low range (10/18/2024 12:27 PM DIRECTOR OF RECRUITING) ACT 289(H) 123 - 168 sec POC Performer [id number] [facility] POC Device Number [id number] [facility] Blood 10/18/2024 12:2 7 PM DIRECTOR OF RECRUITING 10/18/2024 12:27 PM DIRECTOR OF RECRUITING Cristhian Rodgers MD LAB POCT ORDERABLES - DEVICE Final Result Performing Organization Address [facility] de Phone Number [facility] [place] [address] * (ABNORMAL) POCT Activated clotting time, low range (10/18/2024 12:19 PM DIRECTOR OF RECRUITING) ACT 223(H) 123 - 168 sec POC Performer [id number] [facility] POC Device Number [id number] [facility] Blood 10/18/2024 12:1 9 PM DIRECTOR OF RECRUITING 10/18/2024 12:19 PM DIRECTOR OF RECRUITING Cristhian Rodgers MD LAB POCT ORDERABLES - DEVICE Final Result Performing Organization Address City/[facility] Co de Phone Number [facility] [employer] [address] * [place] AN PROCEDURE PLACEHOLDER (10/18/2024 11:32 AM DIRECTOR OF RECRUITING) Chanelle Edmonds MD - 10/18/2024 11:32 AM DIRECTOR OF RECRUITING Chanelle Doyle MD 10/18/2024 11:32 AM Arterial Line Patient location: [place] Indication: continuous blood pressure monitoring and blood sampling needed Staff: Supervising provider: Chanelle Doyle MD Placed by: BONE PLANT SUPERVISOR: Janice Springer CRNA Procedure prep: Prep solution: [...] MD ANESTHESIA ORDERABLES F inal Result * WV AN ELECTIVE ENDOTRACHEAL AIRWAY, [place] AN PROCEDURE PLACEHOLDER (10/18/2024 11:32 AM DIRECTOR OF RECRUITING) Chanelle Edmonds MD - 10/18/2024 11:32 AM DIRECTOR OF RECRUITING Chanelle Doyle MD 10/18/2024 11:32 AM Airway [...] * POCT glucose (10/18/2024 10:42 AM DIRECTOR OF RECRUITING) Glucose, POC 99 70 - 199 mg/dL Blood 10/18/2024 10:4 2 AM DIRECTOR OF RECRUITING 10/18/2024 10:42 AM DIRECTOR OF RECRUITING us Griselda Scruggs MD LAB POCT ORDERABLES - DEVICE Fi nal Result Performing Organization Address City/[facility]/ZIP Co de Phone Number [facility] [place] [address] * Check Sample (10/18/2024 10:40 AM DIRECTOR OF RECRUITING) ABO Rh B Positive [facility] OTHER 10/18/2024 10:4 0 AM DIRECTOR OF RECRUITING 10/18/2024 10:51 AM DIRECTOR OF RECRUITING us Cristhian Rodgers MD LAB BLOOD ORDERABLES Final Re sult Performing Organization Address [facility] Co de Phone Number [facility] Department [place] [address] [facility] * Prepare RBC: 4 Units (10/18/2024 10:25 AM DIRECTOR OF RECRUITING) Product code [id number] Unit Number [id number] 4-E [facility] Product Blood Type BPOS [facility] Dispense Status RETURNED [facility] Product code [id number] [facility] Unit Number [id number] 3-P [facility] Product Blood Type BPOS [facility] Dispense Status RETURNED [facility] Product code [id number] [facility] Unit Number [id number] 5-P [facility] Product Blood Type BPOS [facility] Dispense Status RETURNED [facility] Product code [id number] [facility] Unit Number [id number] 2-5 [facility] Product Blood Type BPOS [facility] Dispense Status [facility] Blood 10/18/2024 10:2 5 AM DIRECTOR OF RECRUITING 10/18/2024 10:24 AM DIRECTOR OF RECRUITING Narrative [facility] - 10/18/2024 2:34 PM DIRECTOR OF RECRUITING Specify Procedure:->transcatheter tricuspic valve implant Are special requirements needed? (All products are leukoreduced and CMV- safe)->No Julieta Gamino TECHNOLOGY ENGINEER BLOOD BANK PRODUCT OR DERABLES Final Result Performing Organization Address City/[facility] Co de Phone Number [facility] Department [place] [address] * (ABNORMAL) eGFR (10/18/2024 3:48 AM DIRECTOR OF RECRUITING) eGFR 45(L) >=60 mL/min/1. 73 m2 Comment: [...] reviewed 2021. Blood 10/18/2024 3:48 AM DIRECTOR OF RECRUITING 10/18/2024 4:44 AM DIRECTOR OF RECRUITING us Griselda Scruggs MD LAB BLOOD ORDERABLES Final Resu lt Performing Organization Address City/[facility]/ZIP Co de Phone Number [facility] [place] [address] * Differential, auto (10/18/2024 3:48 AM DIRECTOR OF RECRUITING) Neutrophil abs 3.1 1.5 - 6.5 K/cumm Imm gran abs 0.0 0.0 - 0.1 K/cumm [facility] Lymphocyte abs 1.5 0.8 - 3.3 K/cumm [facility] Monocyte abs 0.5 0.2 - 0.8 K/cumm [facility] Eosinophil abs 0.1 0.0 - 0.5 K/cumm [facility] Basophil abs 0.0 0.0 - 0.1 K/cumm [facility] Neutrophil pct 59.6 % [facility] Comment: Interpretive Data Percent cell count reference ranges are not reported, since discordance with absolute values may lead to misinterpretation of CBC data. Current Interpretive Data was last revised on 2017. Imm gran pct 0.2 % [facility] Comment: Interpretive Data Percent cell count reference ranges are not reported, since discordance with absolute values may lead to misinterpretation of CBC data. Current Interpretive Data was last revised on 2017. Lymphocyte pct 28.6 % [facility] Comment: Interpretive Data Percent cell count reference ranges are not reported, since discordance with absolute values may lead to misinterpretation of CBC data. Current Interpretive Data was last revised on 2017. Monocyte pct 9.9 % [facility] Comment: Interpretive Data Percent cell count reference ranges are not reported, since discordance with absolute values may lead to misinterpretation of CBC data. Current Interpretive Data was last revised on 2017. Eosinophil pct 1.3 % [facility] Comment: Interpretive Data Percent cell count reference ranges are not reported, since discordance with absolute values may lead to misinterpretation of CBC data. Current Interpretive Data was last revised on 2017. Basophil pct 0.4 % [facility] Comment: Interpretive Data Percent cell count reference ranges are not reported, since discordance with absolute values may lead to misinterpretation of CBC data. Current Interpretive Data was last revised on 2017. Blood 10/18/2024 3:48 AM DIRECTOR OF RECRUITING 10/18/2024 4:44 AM DIRECTOR OF RECRUITING Griselda Scruggs MD LAB BLOOD ORDERABLES Final Resu lt Performing Organization Address [facility] Co de Phone Number [facility] [place] [address] * (ABNORMAL) CBC with auto differential (10/18/2024 3:48 AM DIRECTOR OF RECRUITING) [facility] WBC 5.3 3.8 - 9.9 K/cumm Hgb 11.9 11.9 - 15.5 g/dL [facility] Hct 35.5(L) 35.6 - 45.5 % [facility] Plt 226 150 - 400 K/cumm [facility] MPV 10.0 9.1 - 12.3 fL [facility] RBC 3.94 3.90 - 5.20 M/cumm [facility] MCV 90.1 81.3 - 96.4 fL [facility] MCH 30.2 27.1 - 33.3 pg [facility] MCHC 33.5 32.3 - 35.7 g/dL [facility] RDW CV 13.7 11.1 - 14.9 % [facility] RDW SD 45.1 35.7 - 48.1 fL [facility] NRBC abs 0.00 0.00 - 0.01 K/cumm [facility] Blood 10/18/2024 3:48 AM DIRECTOR OF RECRUITING 10/18/2024 4:44 AM DIRECTOR OF RECRUITING Griselda Scruggs MD LAB BLOOD ORDERABLES Final Resu lt Performing Organization Address [facility] Co de Phone Number [facility] [place] [address] * Protime-INR (10/18/2024 3:48 AM DIRECTOR OF RECRUITING) [facility] PT 11.6 9.7 - 13.0 sec INR 1.07 0.90 - 1.20 [facility] Comment: Interpretive data Oral anticoagulant therapeutic ranges: Venous thromboembolism prophylaxis or treatment: 2.0-3.0 CARDIOLOGY Standard range: 2.0-3.0 High-intensity range: 2.5-3.5 Refer to indication-specific guidelines for appropriate target ranges for prosthetic heart valve replacement. Current interpretive data was last revised on 2019. Blood 10/18/2024 3:48 AM DIRECTOR OF RECRUITING 10/18/2024 4:51 AM DIRECTOR OF RECRUITING Griselda Scruggs MD LAB BLOOD ORDERABLES Final Resu lt Performing Organization Address [facility] de Phone Number [facility] [employer] [place] [address] * Phosphorus (10/18/2024 3:48 AM DIRECTOR OF RECRUITING) Pathologist [facility] Phosphorus, pl 4.3 2.3 - 4.5 mg/dL Blood 10/18/2024 3:48 AM DIRECTOR OF RECRUITING 10/18/2024 4:44 AM DIRECTOR OF RECRUITING Griselda Scruggs MD LAB BLOOD ORDERABLES Final Resu lt Performing Organization Address [facility] de Phone Number [facility] [employer] [place] [address] * Magnesium (10/18/2024 3:48 AM DIRECTOR OF RECRUITING) [facility] Magnesium 2.0 1.4 - 2.5 mg/dL Blood 10/18/2024 3:48 AM DIRECTOR OF RECRUITING 10/18/2024 4:44 AM DIRECTOR OF RECRUITING Griselda Scruggs MD LAB BLOOD ORDERABLES Final Resu lt Performing Organization Address [facility] de Phone Number [facility] [employer] [place] [address] * (ABNORMAL) Basic metabolic panel (10/18/2024 3:48 AM DIRECTOR OF RECRUITING) Pathologist [facility] Sodium 141 135 - 145 mmol/L Potassium, pl 3.7 3.3 - 4.9 mmol/L [facility] Chloride 103 97 - 110 mmol/L [facility] CO2 27 22 - 32 mmol/L [facility] Anion gap 11 2 - 15 mmol/L [facility] BUN 26(H) 6 - 25 mg/dL [facility] Creatinine 1.23(H) 0.60 - 1.10 mg/dL [facility] Glucose 103 70 - 199 mg/dL [facility] Comment: Interpretive Data Fasting glucose >/= [...] 2022. Calcium 9.8 8.5 - 10.3 mg/dL [facility] Blood 10/18/2024 3:48 AM DIRECTOR OF RECRUITING 10/18/2024 4:44 AM DIRECTOR OF RECRUITING us Griselda Scruggs MD LAB BLOOD ORDERABLES Final Resu lt [facility] [place] [address] * eGFR (10/17/2024 4:08 AM DIRECTOR OF RECRUITING) eGFR 60 >=60 mL/min/1. 73 m2 Comment: [...] reviewed 2021. Blood 10/17/2024 4:08 AM DIRECTOR OF RECRUITING 10/17/2024 5:29 AM DIRECTOR OF RECRUITING Griselda Redding MD LAB BLOOD ORDERABLES Final Resul t Performing Organization Address [facility] Co de Phone Number [facility] Department [place] [place] [address] * (ABNORMAL) CBC without differential (10/17/2024 4:08 AM DIRECTOR OF RECRUITING) WBC 3.5(L) 3.8 - 9.9 K/cumm Hgb 11.6(L) 11.9 - 15.5 g/dL [facility] Hct 34.2(L) 35.6 - 45.5 % [facility] Plt 205 150 - 400 K/cumm [facility] MPV 10.2 9.1 - 12.3 fL [facility] RBC 3.81(L) 3.90 - 5.20 M/cumm [facility] MCV 89.8 81.3 - 96.4 fL [facility] MCH 30.4 27.1 - 33.3 pg [facility] MCHC 33.9 32.3 - 35.7 g/dL [facility] RDW CV 14.0 11.1 - 14.9 % [facility] RDW SD 45.9 35.7 - 48.1 fL [facility] NRBC abs 0.00 0.00 - 0.01 K/cumm [facility] Blood 10/17/2024 4:08 AM DIRECTOR OF RECRUITING 10/17/2024 5:30 AM DIRECTOR OF RECRUITING Griselda Redding MD LAB BLOOD ORDERABLES Final Resul t Performing Organization Address [facility] Co de Phone Number [facility] [place] [address] * Comprehensive metabolic panel (10/17/2024 4:08 AM DIRECTOR OF RECRUITING) Sodium 142 135 - 145 mmol/L Potassium, pl 4.3 3.3 - 4.9 mmol/L [facility] Chloride 108 97 - 110 mmol/L [facility] CO2 27 22 - 32 mmol/L [facility] Anion gap 7 2 - 15 mmol/L [facility] BUN 22 6 - 25 mg/dL [facility] Creatinine 0.97 0.60 - 1.10 mg/dL [facility] Glucose 95 70 - 199 mg/dL [facility] Comment: Interpretive Data Fasting glucose >/= [...] 2022. Calcium 9.5 8.5 - 10.3 mg/dL [facility] Bilirubin, total 0.7 0.1 - 1.2 mg/dL [facility] Protein, pl 6.6 6.5 - 8.5 g/dL [facility] Albumin 4.0 3.5 - 5.0 g/dL [facility] Alk phos 81 40 - 130 Units/L [facility] ALT 18 7 - 45 Units/L [facility] AST 20 10 - 45 Units/L [facility] Blood 10/17/2024 4:08 AM DIRECTOR OF RECRUITING 10/17/2024 5:29 AM DIRECTOR OF RECRUITING us Griselda Redding MD LAB BLOOD ORDERABLES Final Resul t [facility] [place] [address] * TYPE AND SCREEN 14 DAY (10/16/2024 12:11 PM DIRECTOR OF RECRUITING) Miguel, indirect Negative ABO Rh B Positive [facility] Blood 10/16/2024 12:1 1 PM DIRECTOR OF RECRUITING 10/16/2024 12:52 PM DIRECTOR OF RECRUITING Narrative [facility] - 10/16/2024 2:57 PM DIRECTOR OF RECRUITING Is this test being ordered in advance for a procedure?->Yes Expected date of procedure:->10/18/24 Has the patient been transfused in the past 3 months?->No Has the patient been in the past 3 months?->No Julieta Gamino NP LAB BLOOD BANK TEST O RDERABLES Final Result [facility] [place] [address] * eGFR (10/16/2024 12:11 PM DIRECTOR OF RECRUITING) eGFR 63 >=60 mL/min/1. 73 m2 Comment: [...] 2021. Blood 10/16/2024 12:1 1 PM DIRECTOR OF RECRUITING 10/16/2024 12:53 PM DIRECTOR OF RECRUITING Julieta Sheila Hanny TECHNOLOGY ENGINEER LAB BLOOD ORDERABLES Final Result [facility] [place] [address] * Differential, auto (10/16/2024 12:11 PM DIRECTOR OF RECRUITING) Neutrophil abs 3.5 1.5 - 6.5 K/cumm Imm gran abs 0.0 0.0 - 0.1 K/cumm [facility] Lymphocyte abs 1.6 0.8 - 3.3 K/cumm [facility] Monocyte abs 0.5 0.2 - 0.8 K/cumm [facility] Eosinophil abs 0.1 0.0 - 0.5 K/cumm [facility] Basophil abs 0.0 0.0 - 0.1 K/cumm [facility] Neutrophil pct 60.2 % [facility] Comment: Interpretive Data Percent cell count reference ranges are not reported, since discordance with absolute values may lead to misinterpretation of CBC data. Current Interpretive Data was last revised on 2017. Imm gran pct 0.3 % [facility] Comment: Interpretive Data Percent cell count reference ranges are not reported, since discordance with absolute values may lead to misinterpretation of CBC data. Current Interpretive Data was last revised on 2017. Lymphocyte pct 28.3 % [facility] Comment: Interpretive Data Percent cell count reference ranges are not reported, since discordance with absolute values may lead to misinterpretation of CBC data. Current Interpretive Data was last revised on 2017. Monocyte pct 9.3 % [facility] Comment: Interpretive Data Percent cell count reference ranges are not reported, since discordance with absolute values may lead to misinterpretation of CBC data. Current Interpretive Data was last revised on 2017. Eosinophil pct 1.4 % [facility] Comment: Interpretive Data Percent cell count reference ranges are not reported, since discordance with absolute values may lead to misinterpretation of CBC data. Current Interpretive Data was last revised on 2017. Basophil pct 0.5 % [facility] Comment: Interpretive Data Percent cell count reference ranges are not reported, since discordance with absolute values may lead to misinterpretation of CBC data. Current Interpretive Data was last revised on 2017. Blood 10/16/2024 12:1 1 PM DIRECTOR OF RECRUITING 10/16/2024 12:53 PM DIRECTOR OF RECRUITING Julieta Stubbsurmila Gamino LAB BLOOD ORDERABLES Final Result Performing Organization Address [facility] [place] [address] * CPAP aPTT algorithm (10/16/2024 12:11 PM DIRECTOR OF RECRUITING) aPTT 30 28 - 38 sec Comment: Interpretive Data Heparin therapeutic range: 66.0 - 100.0 seconds. Range based on correlation with therapeutic heparin activity range of 0.3 - 0.7 Units/mL. Current interpretive data was last revised on 2023. Blood 10/16/2024 12:1 1 PM DIRECTOR OF RECRUITING 10/16/2024 12:11 PM DIRECTOR OF RECRUITING Julieta Sheila Gamino LAB BLOOD ORDERABLES Final Result Performing Organization Address [facility] de Phone Number [facility] [place] [address] * (ABNORMAL) Urinalysis reflex to microscopic and culture Urine, clean voided (10/16/2024 12:11 PM DIRECTOR OF RECRUITING) Color, ur Straw Yellow Clarity, ur Clear Clear [facility] Specific gravity, ur 1.014 1.003 - 1.030 [facility] pH, urine 6.5 [facility] Comment: Interpretive Data U rine pH is affected by diet, medications, systemic acid-base disturbances, and renal tubular function. pH may affect urinary stone formation. For example, urine pH below 6.0 may help reduce the tendency for calcium phosphate stones and pH greater than 6.0 may reduce the tendency for uric acid stone formation. Source: [facility] [employer] Current Interpretive Data was last revised on 2017 Protein, ur ql Negative Negative [facility] Glucose, ur ql Negative Negative [facility] Ketones, ur Negative Negative [facility] Bilirubin, ur Negative Negative [facility] Blood, ur Negative Negative [facility] Urobilinogen, ur <2.0 <2.0 mg/dL [facility] Nitrite, ur Negative Negative [facility] Leukocyte esterase, ur 1+(A) Negative [facility] UA reflex comment Reflex to microscopic UA will be performed. [facility] Urine, clean voided 10/16/2024 12:11 PM DIRECTOR OF RECRUITING 10/16/2024 12:48 PM DIRECTOR OF RECRUITING Julieta Gamino TECHNOLOGY ENGINEER LAB MICROBIOLOGY - NERAL ORDERABLES Final Result [facility] [place] [address] * CBC with auto differential (10/16/2024 12:11 PM DIRECTOR OF RECRUITING) WBC 5.8 3.8 - 9.9 K/cumm Hgb 13.3 11.9 - 15.5 g/dL [facility] Hct 40.2 35.6 - 45.5 % [facility] Plt 284 150 - 400 K/cumm [facility] MPV 10.4 9.1 - 12.3 fL [facility] RBC 4.38 3.90 - 5.20 M/cumm [facility] MCV 91.8 81.3 - 96.4 fL [facility] MCH 30.4 27.1 - 33.3 pg [facility] MCHC 33.1 32.3 - 35.7 g/dL [facility] RDW CV 13.8 11.1 - 14.9 % [facility] RDW SD 47.0 35.7 - 48.1 fL [facility] NRBC abs 0.00 0.00 - 0.01 K/cumm [facility] Blood 10/16/2024 12:1 1 PM DIRECTOR OF RECRUITING 10/16/2024 12:53 PM DIRECTOR OF RECRUITING Julieta Gamino NP LAB BLOOD ORDERABLES Final Result [facility] [place] [address] * (ABNORMAL) Urinalysis, microscopic only (10/16/2024 12:11 PM DIRECTOR OF RECRUITING) WBC, ur 6-10(A) 0 - 5 /HPF RBC, ur 0-2 0 - 2 /HPF [facility] Epithelial cells, renal, ur 1-5(A) 0 - 0 /HPF [facility] Mucous, ur Present(A) [facility] Culture Reflex Comment Reflex conditions for urine culture (WBC >10) not met. [facility] Urine, clean voided 10/16/2024 12:11 PM DIRECTOR OF RECRUITING 10/16/2024 12:48 PM DIRECTOR OF RECRUITING Julieta Gamino NP LAB URINE ORDERABLES Final Result Performing Organization Address [facility] [place] [address] * Protime-INR (10/16/2024 12:11 PM DIRECTOR OF RECRUITING) Pathologist [facility] PT 11.3 9.7 - 13.0 sec INR 1.05 0.90 - 1.20 [facility] Comment: Interpretive data Oral anticoagulant therapeutic ranges: Venous thromboembolism prophylaxis or treatment: 2.0-3.0 CARDIOLOGY Standard range: 2.0-3.0 High-intensity range: 2.5-3.5 Refer to indication-specific guidelines for appropriate target ranges for prosthetic heart valve replacement. Current interpretive data was last revised on 2019. Blood 10/16/2024 12:1 1 PM DIRECTOR OF RECRUITING 10/16/2024 12:11 PM DIRECTOR OF RECRUITING Julieta Gamino NP LAB BLOOD ORDERABLES Final Result Performing Organization Address [facility] de Phone Number [phone] [place] [address] * (ABNORMAL) Comprehensive metabolic panel (10/16/2024 12:11 PM DIRECTOR OF RECRUITING) Sodium 141 135 - 145 mmol/L Potassium, pl 4.6 3.3 - 4.9 mmol/L [facility] Chloride 100 97 - 110 mmol/L [facility] CO2 29 22 - 32 mmol/L [facility] Anion gap 12 2 - 15 mmol/L [facility] BUN 18 6 - 25 mg/dL [facility] Creatinine 0.93 0.60 - 1.10 mg/dL [facility] Glucose 93 70 - 199 mg/dL [facility] Comment: Interpretive Data Fasting glucose >/= [...] 2022. Calcium 10.6(H) 8.5 - 10.3 mg/dL [facility] Bilirubin, total 0.6 0.1 - 1.2 mg/dL [facility] Protein, pl 7.9 6.5 - 8.5 g/dL [facility] Albumin 4.8 3.5 - 5.0 g/dL [facility] Alk phos 98 40 - 130 Units/L [facility] ALT 23 7 - 45 Units/L [facility] AST 28 10 - 45 Units/L [facility] Blood 10/16/2024 12:1 1 PM DIRECTOR OF RECRUITING 10/16/2024 12:53 PM DIRECTOR OF RECRUITING Julieta Gamino NP LAB BLOOD ORDERABLES Final Result [facility] [place] [address] * ECG 12 lead (10/16/2024 11:26 AM DIRECTOR OF RECRUITING) Ventricular Rate EKG/Min 68 BPM [facility] Atrial Rate 68 BPM [facility] WV-Interval (MSEC) 168 ms [facility] QRS-Interval (MSEC) 76 ms [facility] QT-Interval (MSEC) 398 ms [facility] QTc 423 ms [facility] P [place] 64 degrees [facility] R [place] 43 degrees [facility] T [place] 47 degrees [facility] Diagnosis Normal sinus rhythm Normal ECG When compared with ECG of 11-MAY-2024 08:19, no significant change Confirmed by MARV GARCIA M.D ([id number]) on 10/16/2024 1:39:42 PM [facility] 10/16/2024 11:2 6 AM DIRECTOR OF RECRUITING 10/16/2024 1:39 PM DIRECTOR OF RECRUITING us Julieta Gamino NP ECG ORDERABLES Final Result [facility] * COLONOSCOPY (11/12/2020 12:00 PM DIRECTOR OF RECRUITING) Anatomical Region Laterality Modality Other Narrative Procedure Note Paz Mejias MD - 11/12/2020 12:00 PM [facility] Patient Name: Stacy Herron Procedure Date: 11/12/2020 12:00 PM Date of : 1945 Admit Type: Outpatient Age: 75 Gender: Female Attending MD: Brandt Gunter Room: [facility] END[facility]COPY [facility]OM 3 Note Status: Finalized Procedure: [...] The scope was passed under direct vision.The [id number] endoscope was introduced through the anus and advanced to the terminal ileum. The colonoscopy was performed without difficulty. The patient tolerated the procedure well. The qualityof the bowel preparation was evaluated using the BBPS ([place] Bowel Preparation Scale) with scores of:Right Colon [...] On: 11/12/2020 12:00 PM Recognized by the [place] [employer] for promoting quality in endoscopy Paz Mejias MD ENDOSCOPY PROCEDUR ES Final Result from Last 3 Months or Most Recently Relevant to Health Maintenance Insurance MEDICARE AET SENIOR [facility] MEDICARE AETNA SENIOR SUPPLEMENT [address] [place] [address] MEDICARE AETNA SENIOR SUPPLEMENT Advance Directives For more information, please contact: [phone] Documents on File Type Date Recorded Patient Award Machine Operator Expl anation ADVANCE DIRECTIVE 10/23/2024 2:41 AM POWER OF STRIKE OPERATIONS OFFICER-MEDICAL ADVANCE DIRECTIVE 10/23/2024 2:41 AM LIVING WILL [...] 10:37 AM 11/12/2020 5:37 PM Care Teams Prison Keeper Relationship Specialty Start Date End Date Praveena Mcfarland MD [address] [place] [address] PCP - General Internal Medicine 10/11/19 Paul Lopez MD [address] [place] [address] 10/11/19 Paz Mejias MD [address] [place] [address] Behavioral Health Assistant Gastroenterology 09/07/22 Hayden Huffman III, MD [address] [place] [address] Deck Officer Cardiology 12/14/22 Herson Elam MD [address] [place] [address] [place] [address] Surgeon Orthopedic Surgery 11/22/23 Gee Carrasco MD [address] [place] [address] [place] [address] Referring Physician Cardiology 02/29/24 Irasema Valdez MD [address] [place] [address] [place] [address] Deck Officer Cardiology 05/15/24 Cristhian Rodgers MD [address] [id number] [place] [address] Cardiothoracic Surgery 10/20/24 Bill Tovar MD [address] [id number] [place] [address] Surgeon Colon and Rectal Surgery 11/15/24
--- OUTSIDE RECORDS SUMMARY | 2024-11-27 14:13 | XMS_ITS | Continuity of Care Document ---
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 [address], [place], [id number] , [place]. tel: [phone] [facility], [address] [place] [address], [id number], [phone] [facility] 7 Katie Villavicencio. [address] [place] [address], [id number] , . tel: [phone] Referring Provider: Gibson Pineda, [address] [place] [address], [id number] . tel:[phone] [facility], [address] [place] [address], [id number], tel:[phone] [facility] Mar-1 6-201 7 Wilson Maye. [address] [place] [address], [id number] , . tel: [phone] Referring Provider: Gibson Pineda, [address] [place] [address], [id number] . tel:[phone] [facility], [address] [place] [address], [id number], tel:[phone] [facility] Mar-1 4-201 7 Katie Maye. [address] [place] [address], [id number] , . tel: [phone] Referring Provider: Gibsno Pineda, [address] [place] [address], [id number] . tel:[phone] [facility], [address] [place] [address], [id number], tel:[phone] [facility] Trigger finger, left ring finger Mar-0 1-201 7 Wilson Maye. [address] [place] [address], [id number] , . tel: [phone] Referring Provider: Gibson Pineda, [address] [place] [address], [address] . tel:[phone] [facility], [address] [place] [address], [id number], tel:[phone] [facility] left ring finger (chief complaint) Trigger finger, left ring finger Feb-2 3-201 7 Rachel Parson. [address] [place] [address], [id number] , [place]. tel: [phone] [facility], [address] [place] [address], [id number], tel:[phone] [facility] No Information 7 Bacilio Arreaga. [address] [place] [address], [id number] , . tel:[phone] Office/outpa tient visit,est, [facility], [address] [place] [address], [id number], tel:[phone] [facility] Finger (chief complaint) left ring finger (chief complaint) Pain in left finger(s)Trigger finger, left ring fingerTrigger finger, left ring fingerTrigger finger, left ring finger 7 Bacilio Arreaga. [address] [place] [address], [id number] , . tel:[phone] Referring Provider: Gibson Pineda, [address] [place] [address], [id number] . tel:[phone] Office/outpa tient visit,est, [facility], [address] [place] [address], [id number], tel:[phone] SOA PA right knee pain (chief complaint) Pain in right kneePrimary osteoarthritis of right knee 6 Deny Bains. [address] [place] [address], [id number] , . tel:[phone] Referring Provider: Herson Madden, [address] [place] [address], [id number] . tel:[phone] [facility], [address] [place] [address], [id number], tel:[phone] [facility] No Information 6 Deny Bains. [address] [place] [address], [id number] , . tel:[phone] Referring Provider: Herson Leung, [address] [place] [address], [id number] . tel:[phone] Office/outpa tient visit,est, [facility], [address] [place] [address], [id number], [place] tel:[phone] [facility] knee (chief complaint) Pain In Lower Leg (Knee) / Patellofemoral SyndromeArthritis Knee Localized Primary (osteoarthritis) Sep- 5 Tima Elizondo. [address] [place] [address], [id number] , . tel:[phone] Referring Provider: Mikhail Akhtar, [address] [place] [address], [id number] . tel:[phone] Office/outpa tient visit,est, [facility], [address] [place] [address], [id number], tel:[phone] [facility] Knee (chief complaint) Pain In Lower Leg (Knee) / Patellofemoral SyndromeOsteopeni a, Disorder Bone/Cartilage 4 Tima Elizondo. [address] [place] [address], [id number] , [place]. tel:[phone] Referring Provider: Mikhail Akhtar, [address] [place] [address], [address] . tel:[phone] Office/outpa tient visit,est, mod [facility], [address] [place] [address], [id number], tel:[phone] [facility] left hip pain (chief complaint) Pubic bone painOsteopenia, Disorder Bone/Cartilage 4 Tima Elizondo. [address] [place] [address], [id number] , [place]. tel: [phone] [facility], [address] [place] [address], [id number], [place] tel:[phone] [facility] No Information 2 Tina Meza. [address], [place], [id number] , [place]. tel: [phone] [facility], [address] [place] [address], [id number], tel:[phone] [facility] No Information 0201 1 Bacilio Arreaga. [address] [place], [place], [id number] , [place]. tel:[phone] Office/outpa tient visit,new, [facility], [address] [place], [place], [id number], tel:[phone] [facility] No Information 1 Iraida Cotto. [address] [place], [place], [id number] , . tel: [phone] Family History Family Member Type Diagnosis Age At Onset Problem (finding) Family history of Cance r, unknown Payers Payer name Insurance type Covered libertarian ID Authoriza tiserena(s) [place] [id number] [id number] Social History Type Description Quantity Date [...] Order Fi nger(s) Xray Min 2 Views (91093), Ordered on: Ordered Future Order: Radiology Order Kn ee Xray Both Knees Standing AP (54518), Ordered on: Ordered Future Order: Radiology Order Kn ee Xray 1 Or 2 Views (96493), Ordered on: Ordered Future Order: Radiology Order Kn ee Xray Complete 4 Or More Views (22505), Ordered on: Ordered Future Order: Radiology Order Pe lvis Xray 1 Or 2 Views (Includes Judet) (52622), Ordered on: Ordered History Of Present Illness [...]
--- OUTSIDE RECORDS SUMMARY | 2024-11-27 14:14 | XMS_ITS | Clinical Summary ---
Author Organization [facility] Address [address] [place] [address] Care Team Providers Care Archivist [employer] Name Role Phone Praveena Mcfarland MD Primary Care Provider Paul Lopez MD Unavailable [phone] Paz Mejias MD Unavailable + Nathanael VALERIO MD, Hayden Singh Unavailable Herson Elam MD Unavailable Gee Carrasco MD Unavailable [phone] Irasema Valdez MD Unavailable [phone] Cristhian Rodgers MD Unavailable Bill Tovar MD Unavailable [phone] Allergies Active Allergy Reactions Criticality Noted Date [...] 10/19/2024 Assessment & Plan (10/19/2024 11:13 AM TELECOM SPECIALIST): - continue Simvastatin - low fat low cholesterol diet S/P tricuspid valve replacement 10/18/2024 Assessment & Plan (10/19/2024 11:09 AM TELECOM SPECIALIST): S/p TTVR 10/18 with Evoque Remove figure [...] 10/16/2024 Assessment & Plan (10/17/2024 1:57 PM TELECOM SPECIALIST): Patient with history of symptomatic severe tricuspid [...] 05/03/2024 Assessment & Plan (10/18/2024 12:05 PM TELECOM SPECIALIST): Goal SBP <160 Assessment & Plan (10/17/2024 1:56 PM TELECOM SPECIALIST): Continue home propranolol, lisinopril Diastolic heart failure 05/03/2024 Assessment & Plan (10/18/2024 2:27 PM TELECOM SPECIALIST): Acute on chronic Diuresis this admission No plans to restart milrinone post-TTVR Shortness of breath 04/30/2024 Tricuspid regurgitation, non-Ebstein's related 0 02/29/2024 Assessment & Plan (10/18/2024 12:05 PM TELECOM SPECIALIST): TTVR 10/18 Aftercare following right knee joint replacement surgery 01/06/2024 History of colonic polyps 10/03/2020 Change in bowel habit 02/08/2020 Lactose intolerance 02/08/2020 Incontinence of feces 06/21/2018 Overview (06/21/2018): Added automatically from request for surgery [id number] Fecal incontinence 08/08/2015 Assessment & Plan (10/16/2024 9:24 PM TELECOM SPECIALIST): 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 status post Medtronic device stimulation - continue home Lomotil GERD (gastroesophageal reflux disease) Assessment & Plan (10/16/2024 9:23 PM TELECOM SPECIALIST): Continue home PPI Resolved Problems Problem Noted Date Diagnosed Date Resolved Date Primary osteoarthritis of right knee 08/03/2023 01/06/[address] of the abdomen 02/08/2020 0 05/28/2021 Encounters Date Type Department Care Team Description 11/27/2024 Results Follow-Up [facility] Cardiology [facility]ly [facility] 8th [place] [address] [place] [address] Irasema Valdez MD 11/26/2024 3:40 PM CDT Lab [facility] Endocrinology Metabolism and Lipid [address] [place] [address] [place] [address] S/P tricuspid valve replacement 11/26/2024 2:30 PM CDT Office Visit [address] [place] [address] [place] [address] S/P tricuspid valve replacement (Primary Dx); Mixed hyperlipidemia; Chronic diastolic heart failure (HCC) 11/26/2024 Orders Only [facility] Cardiology [address] [facility] Medical Office Building [address] [place] [address] Irasema Valdez MD 11/26/[address] [place] [address] Natalie Cruz RN 11/22/[address] [place] [address] [place] [address] Kady Baires 11/22/[address] [place] [address] Kady Baires 11/21/2024 Orders Only [facility] Scanning, Provider 11/15/2024 3:00 PM TELECOM SPECIALIST Office Visit [facility] Surgery [address] [place] [address] Medical Office Building [address] [place] [address] Bill Tovar MD Incontinence of feces, unspecified fecal incontinence type (Primary Dx) 11/14/[address] 8th [place] [address] [place] [address] Irasema Valdez MD TAVR follow up 11/12/2024 4:02 PM TELECOM SPECIALIST - 11/12/2024 11:59 PM TELECOM SPECIALIST Hospital Encounter [facility] [address] [place] [address] S/P tricuspid valve replacement Discharge Disposition: Discharge to home or self care 11/12/2024 4:00 PM TELECOM SPECIALIST Lab [facility] Endocrinology Metabolism and Lipid [address] [place] [address] [place] [address] S/P tricuspid valve replacement 11/12/2024 2:30 PM TELECOM SPECIALIST Office Visit [facility] Cardiology [address] [place] [address] [place] [address] Shawanda Maurice NP 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] (Primary Dx); S/P tricuspid valve replacement; Primary hypertension; Mixed hyperlipidemia 11/12/2024 12:33 PM TELECOM SPECIALIST - 11/12/2024 11:59 PM TELECOM SPECIALIST Hospital Encounter [facility] Cardiac Diagnostic Lab [address] [place] [address] Tricuspid regurgitation, non-Ebstein's related Discharge Disposition: Discharge to home or self care 11/12/2024 Results Follow-Up [facility] Cardiology [address] [place] [address] [place] [address] [place] [address] Irasema Valdez MD 11/12/2024 Telephone [facility] Cardiology [facility] Office Building [address] [place] [address] Carmella Mayorga CMA 11/12/2024 Results Follow-Up [facility] Cardiology [address] [place] [address] [place] [address] [place] [address] Shawanda Maurice NP 10/30/2024 Telephone [facility] Surgery Chanel Kelley NP 10/25/2024 Telephone [facility] Cardiology [address] [place] [address] [place] [address] [place] [address] Irasema Valdez MD ppwk 10/23/2024 Telephone [facility] Cardiology [address] [place] [address] [place] [address] [place] [address] Irasema Valdez MD 10/22/2024 Telephone [facility] Cardiology [address] [place] [address] 8th [place] [address] [place] [address] Irasema Valdez MD 10/22/2024 Telephone [facility] Internal Medicine Chanel Kelley NP 10/22/2024 Telephone [facility] Cardiology [address] [place] [address] 8th [place] [address] [place] [address] Prince Campo MD 10/18/2024 11:07 AM TELECOM SPECIALIST Anesthesia Event [facility] Electrophysiology Lab [address] [place] [address] Chanelle Doyle MD Harkins, Cherice Lynette, NP 10/18/2024 11:00 AM TELECOM SPECIALIST - 10/18/2024 2:30 PM TELECOM SPECIALIST Surgery [facility] Electrophysiology Lab [address] [place] [address] Irasema Valdez MD Transcatheter Tricuspid Valve Implant (TTVI/TTVR) 10/16/2024 4:44 PM TELECOM SPECIALIST - 10/20/2024 2:21 PM TELECOM SPECIALIST Hospital Encounter [address] [address] Irasema Valdez MD Osman, Ali H., MD Khan, Ali Ayub, MD Kaneko, Tsuyoshi, MD 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] (Primary Dx); Tricuspid regurgitation, non-Ebstein's related; S/P tricuspid valve replacement Discharge Disposition: Discharge to home or self care 10/16/2024 10:30 AM TELECOM SPECIALIST Pre-Admission Testing [facility] for Preoperative Assessment and Planning [facility] [address] [place] [address] Preoperative testing (Primary Dx); Easy bruising 10/02/2024 Telephone [facility] Cardiology [address] [place] [address] 8th [place] [address] [place] [address] Irasema Valdez MD 09/24/2024 Telephone [facility] Cardiology [address] [facility] 8th [place] [address] [place] [address] Irasema Valdez MD procedural inquiry from Last [...] 1 interstim SACRAL NERVE STIMULATOR PLACEMENT 12/17/2022 [employer] Medical History Medical History Date Comments Hypertension Fecal incontinence Motion sickness Sacral nerve stimulator present 12/17/2022 [employer] Tricuspid regurgitation GERD (gastroesophageal reflux disease) Hyperlipidemia [...] on file 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:54 AM TELECOM SPECIALIST Gender Identity Female 02/06/2020 12:07 PM CDT Sexual Orientation Not on file Obstetrics History Last Filed Vital Signs Vital Sign Reading Time Taken Comments Blood Pressure 118/74 11/26/2024 2:16 PM CDT Pulse 71 11/26/2024 2:16 PM CDT Temperature 36.4 C (97.5 F) 10/20/2024 9:37 AM TELECOM SPECIALIST Respiratory Rate 16 10/20/2024 12:36 PM TELECOM SPECIALIST Oxygen Saturation 94% 11/26/2024 2:16 PM CDT Inhaled Oxygen Concentration - - Weight 63 kg (139 lb) 11/26/2024 2:16 PM CDT Height 154.9 cm (5' 1 ) 11/26/2024 2:16 PM CDT Body Mass Index 26.26 11/26/2024 2:16 PM CDT Plan of Treatment Health Maintenance Due [...] history exists Medical Devices Implanted Type Area Payroll And Benefits Coordinator Device Identifier Shelf Expiration Date Model / Serial / Lot [email or web address] Ramiro Angio-Seal Vip 6fr Closere Device [id number] - [id number] - [id number] Implanted:Qty: 1 on 05/11/2024 by Irasema Valdez MD at [facility] Collagen Right: Groin [employer] Ramiro 01/01/2025 [id number] / [id number] / [id number] Medtronic Inc Neurostimulator Generator 3058 - [id number] - [id number] Implanted:Qty: 1 on 12/17/2022 by Nereyda Kemp MD at [facility] Other - see comments Left: Buttocks Medtronic Inc 12/31/2022 3058 / [id number] / NA Description:Implant pause pe rformed prior to opening implant to sterile field Medtronic Inc Interstim 28cm Quadripolar [employer] Lead Neurostimulator [id number] - Sna - [id number] Implanted:Qty: 1 on 12/17/2022 by Nereyda Kemp MD at [facility] Other - see comments Right: Sacrum Medtronic Inc 2024 [id number] / NA / [id number] Description:Implant pause pe rformed prior to opening implant to sterile field [employer] Evoque 48mm Transcatheter Tricuspid Heart Valve [id number] - [id number] - [id number] Implanted:Qty: 1 on 10/18/2024 by Irasema Valdez MD at [facility] Prosthetic Valve N/A: Tricuspid Valve [employer] 10/23/2025 [id number] / [id number] / Stimulator Stimulator Left: Hip Vagus Nerve Stimulator- 3 Implanted: 3 (Quantity not on file) Vagus Nerve Stimulator Left: Hip Medtronic [facility] System Closure Repair Femoral Artery Suture Mediated Perclose Prostyle 56843-44 - [id number] - [id number] Implanted:Qty: 1 on 10/18/2024 by Irasema Valdez MD at [facility] Vascular Closure Device Left: Femoral Vein [employer] 07/19/2026 44578-63 / [id number] / [id number] [employer] Vascular System Closure Repair Femoral Artery Suture Mediated Perclose Prostyle 87785-42 - [id number] - [id number] Implanted:Qty: 1 on 10/18/2024 by Irasema Valdez MD at [facility] Vascular Closure Device Left: Femoral Vein [employer] 07/19/2026 12710-38 / [id number] / [id number] [employer] Cement Bone High Viscosity Gentamicin Radiopaque Single Dose Hemiarthroplpasty Simplex [id number] Pmma 6195-1-010 - [id number] Implanted:Qty: 1 on 11/21/2023 by Herson Elam MD at [facility] Right: Knee [employer] 12/17/2024 6195-1-010 / / [id number] [employer] Cement Bone High Viscosity Gentamicin Radiopaque Single Dose Hemiarthroplpasty Simplex [id number] Pmma 6195-1-010 - [id number] Implanted:Qty: 1 on 11/21/2023 by Herson Elam MD at [facility] Right: Knee [employer] 12/17/2024 6195-1-010 / / [id number] [employer] Attune S+ Cement Fix Bearing Knee 4 Baseplate Tibial [id number] - [id number] Implanted:Qty: 1 on 11/21/2023 by Herson Elam MD at [facility] Right: Knee [employer] Inc 04/18/2033 [id number] / / [id number] [employer] Attune Cemented Posterior Stabilize Knee Right 5 Narrow Component [id number] - [id number] Implanted:Qty: 1 on 11/21/2023 by Herson Elam MD at [facility] Right: Knee [employer] 06/18/2033 [id number] / / [id number] [employer] Inc Attune 35mm Cemented Medialize Knee Dome Patellar Aox Sterile [id number] - [id number] Implanted:Qty: 1 on 11/21/2023 by Herson Elam MD at [facility] Right: Knee [employer] Inc 04/18/2028 [id number] / / [id number] [employer] Attune 6mm Posterior Stabilize Fix Bearing Knee 5 Insert Tibial [id number] - [id number] Implanted:Qty: 1 on 11/21/2023 by Herson Elam MD at [facility] Right: Knee [employer] Inc 05/19/2028 [id number] / / [id number] Explanted Type Area Payroll And Benefits Coordinator Device Identifier Shelf Expiration Date Model / Serial / Lot Medtronic Neuro 3889-28 Interstim 28cm Quadripolar Lead Neurostimulator - [id number] Implanted:Qty: 1 on 08/04/2018 by Nereyda Kemp MD at [facility] Explanted:Qty: 1 on 12/17/2022 at [facility] N/A: Back Medtronic Neuro 04/27/2022 3889-28 / / [id number] Medtronic Neuro 3058 Interstim Ii 2inx1.7in 4 Electrode Group Home Counselor Sacral Nerve - [id number] Implanted:Qty: 1 on 08/17/2018 by Nereyda Kemp MD at [facility] Explanted:Qty: 1 on 12/17/2022 by Nereyda Kemp MD at [facility] Medtronic Neuro 11/16/2019 3058 / / Description:Explant disposed of in biohazard waste. Procedures Procedure Name Priority Date/Time Associated Diagnosis Comments MAGNESIUM Routine 11/26/2024 3:30 PM CDT S/P tricuspid valve replacement BASIC METABOLIC PANEL Routine 11/26/2024 3:30 PM CDT S/P tricuspid valve replacement SCAN - LABS 11/21/2024 PRO B-TYPE NATRIURETIC PEPTIDE Routine 11/12/2024 4:02 PM TELECOM SPECIALIST S/P tricuspid valve replacement BASIC METABOLIC PANEL Routine 11/12/2024 4:02 PM TELECOM SPECIALIST S/P tricuspid valve replacement CBC WITHOUT DIFFERENTIAL Routine 11/12/2024 4:02 PM TELECOM SPECIALIST S/P tricuspid valve replacement ECG 12-LEAD Routine 11/12/2024 2:44 PM TELECOM SPECIALIST 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] S/P tricuspid valve replacement TRANSTHORACIC ECHO (TTE) COMPLETE W DOPPLER/CF WO CONTRAST Routine 11/12/2024 2:04 PM TELECOM SPECIALIST Tricuspid regurgitation, non-Ebstein's related ECG 12-LEAD Routine 10/20/2024 5:54 AM TELECOM SPECIALIST EGFR Routine 10/20/2024 4:35 AM TELECOM SPECIALIST DIFFERENTIAL AUTO Routine 10/20/2024 4:3 5 AM TELECOM SPECIALIST BASIC METABOLIC PANEL Routine 10/20/2024 4:35 AM TELECOM SPECIALIST CBC WITH AUTO DIFFERENTIAL Routine 10/20/2024 4:35 AM TELECOM SPECIALIST PHOSPHORUS Routine 10/20/2024 4:35 AM TELECOM SPECIALIST MAGNESIUM Routine 10/20/2024 4:35 AM TELECOM SPECIALIST TRANSTHORACIC ECHO (TTE) COMPLETE W DOPPLER/CF W CONTRAST Pending Discharge 10/19/2024 5:49 PM TELECOM SPECIALIST HEPATIC FUNCTION PANEL STAT 10/19/2024 11:50 AM TELECOM SPECIALIST PROTIME-INR STAT 10/19/2024 11:50 AM TELECOM SPECIALIST XR CHEST PA LATERAL 2 VIEWS IP Routine 10/19/2024 8:19 AM TELECOM SPECIALIST ECG 12-LEAD Routine 10/19/2024 4:24 AM TELECOM SPECIALIST EGFR Routine 10/18/2024 11:26 PM TELECOM SPECIALIST DIFFERENTIAL AUTO Routine 10/18/2024 11:26 PM TELECOM SPECIALIST BASIC METABOLIC PANEL Routine 10/18/2024 11:26 PM TELECOM SPECIALIST CBC WITH AUTO DIFFERENTIAL Routine 10/18/2024 11:26 PM TELECOM SPECIALIST PHOSPHORUS Routine 10/18/2024 11:26 PM TELECOM SPECIALIST MAGNESIUM Routine 10/18/2024 11:26 PM TELECOM SPECIALIST XR CHEST 1 VIEW ED Urgent/IP Urgent 10/18/2024 2:22 PM TELECOM SPECIALIST EGFR Routine 10/18/2024 2:10 PM TELECOM SPECIALIST DIFFERENTIAL AUTO Routine 10/18/2024 2:1 0 PM TELECOM SPECIALIST APTT Routine 10/18/2024 2:10 PM TELECOM SPECIALIST PROTIME-INR Routine 10/18/2024 2:10 PM TELECOM SPECIALIST CBC WITH AUTO DIFFERENTIAL Routine 10/18/2024 2:10 PM TELECOM SPECIALIST COMPREHENSIVE METABOLIC PANEL Routine 10/18/2024 2:10 PM TELECOM SPECIALIST MAGNESIUM Routine 10/18/2024 2:10 PM TELECOM SPECIALIST ECG 12-LEAD STAT 10/18/2024 1:57 PM TELECOM SPECIALIST INTRACARDIAC ECHOCARDIOGRAM Routine 10/18/2024 1:40 PM TELECOM SPECIALIST Tricuspid regurgitation, non-Ebstein's related TRANSCATHETER TRICUSPID VALVE IMPLANT Routine 10/18/2024 1:40 PM TELECOM SPECIALIST Tricuspid regurgitation, non-Ebstein's related NADINE GUIDANCE DURING CARDIAC STRUCTURAL INTVN 13282 Routine 10/18/2024 1:30 PM TELECOM SPECIALIST POCT ACTIVATED CLOTTING TIME, LOW RANGE Routine 10/18/2024 12:52 PM TELECOM SPECIALIST POCT ACTIVATED CLOTTING TIME, LOW RANGE Routine 10/18/2024 12:27 PM TELECOM SPECIALIST POCT ACTIVATED CLOTTING TIME, LOW RANGE Routine 10/18/2024 12:19 PM TELECOM SPECIALIST NV AN PROCEDURE PLACEHOLDER Routine 10/18/2024 11:32 AM TELECOM SPECIALIST NV AN PROCEDURE PLACEHOLDER Routine 10/18/2024 11:32 AM TELECOM SPECIALIST NV AN ELECTIVE ENDOTRACHEAL AIRWAY Routine 10/18/2024 11:32 AM TELECOM SPECIALIST POCT GLUCOSE DEVICE Routine 10/18/2024 10:42 AM TELECOM SPECIALIST B CHECK SAMPLE STAT 10/18/2024 10:40 AM TELECOM SPECIALIST PREPARE RBC Timed 10/18/2024 10:25 AM TELECOM SPECIALIST EGFR Routine 10/18/2024 3:48 AM TELECOM SPECIALIST DIFFERENTIAL AUTO Routine 10/18/2024 3:4 8 AM TELECOM SPECIALIST PROTIME-INR Routine 10/18/2024 3:48 AM TELECOM SPECIALIST CBC WITH AUTO DIFFERENTIAL Routine 10/18/2024 3:48 AM TELECOM SPECIALIST BASIC METABOLIC PANEL Routine 10/18/2024 3:48 AM TELECOM SPECIALIST MAGNESIUM Routine 10/18/2024 3:48 AM TELECOM SPECIALIST PHOSPHORUS Routine 10/18/2024 3:48 AM TELECOM SPECIALIST EGFR Routine 10/17/2024 4:08 AM TELECOM SPECIALIST CBC WITHOUT DIFFERENTIAL Routine 10/17/2024 4:08 AM TELECOM SPECIALIST COMPREHENSIVE METABOLIC PANEL Routine 10/17/2024 4:08 AM TELECOM SPECIALIST EGFR Routine 10/16/2024 12:11 PM TELECOM SPECIALIST Preoperative testing URINALYSIS, MICROSCOPIC ONLY Routine 10/16/2024 12:11 PM TELECOM SPECIALIST Preoperative testing DIFFERENTIAL AUTO Routine 10/16/2024 12:11 PM TELECOM SPECIALIST Preoperative testing CBC WITH AUTO DIFFERENTIAL Routine 10/16/2024 12:11 PM TELECOM SPECIALIST Preoperative testing COMPREHENSIVE METABOLIC PANEL Routine 10/16/2024 12:11 PM TELECOM SPECIALIST Preoperative testing TYPE AND SCREEN 14 DAY Routine 10/16/2024 12:11 PM TELECOM SPECIALIST Preoperative testing PROTIME-INR Routine 10/16/2024 12:11 PM TELECOM SPECIALIST Preoperative testing Easy bruising CPAP APTT ALGORITHM Routine 10/16/2024 12:11 PM TELECOM SPECIALIST Preoperative testing URINALYSIS AND REFLEX TO MICROSCOPIC AND CULTURE Routine 10/16/2024 12:11 PM TELECOM SPECIALIST Preoperative testing ECG 12-LEAD Routine 10/16/2024 11:26 AM TELECOM SPECIALIST Preoperative testing COLONOSCOPY 11/12/2020 12:00 PM TELECOM SPECIALIST from Last 3 Months or Most Recently Relevant to Health Maintenance Results * Magnesium (11/26/2024 3:30 PM CDT) Magnesium 2.1 1.6 - 2.6 mg/dL [facility] Blood 11/26/2024 3:30 PM CDT 11/26/2024 4:14 PM CDT us Irasema Valdez MD LAB BLOOD ORDERABLES Final Resu lt [facility] * (ABNORMAL) Basic metabolic panel (11/26/2024 3:30 [...] Pro B-type natriuretic peptide (11/12/2024 4:02 PM TELECOM SPECIALIST) NT-proBNP 1,758(H) <=450 pg/mL Comment: Interpretive Comments: [...] Revised Date: 2018. Blood 11/12/2024 4:02 PM TELECOM SPECIALIST 11/12/2024 6:34 PM TELECOM SPECIALIST us Shawanda Maurice PERFORMANCE TEST ENGINEER LAB BLOOD ORDERABLES Final R esult [facility] [place] [address] * (ABNORMAL) CBC without differential (11/12/2024 4:02 PM TELECOM SPECIALIST) White Blood Count 4.8 3.6 - 11.2 [...] [facility] Blood 11/12/2024 4:02 PM TELECOM SPECIALIST 11/12/2024 4:27 PM TELECOM SPECIALIST us Shawanda Maurice PERFORMANCE TEST ENGINEER LAB BLOOD ORDERABLES Final R esult [facility] * (ABNORMAL) Basic metabolic panel (11/12/2024 4:02 PM TELECOM SPECIALIST) Glucose 105(H) 64 - 99 mg/dL [facility] [...] [facility] Blood 11/12/2024 4:02 PM TELECOM SPECIALIST 11/12/2024 4:27 PM TELECOM SPECIALIST us Shawanda Maurice PERFORMANCE TEST ENGINEER LAB BLOOD ORDERABLES Final R esult [facility] * ECG 12 lead (11/12/2024 2:44 PM TELECOM SPECIALIST) Shawanda Maurice PERFORMANCE TEST ENGINEER ECG ORDERABLES Edited Resul t - Final * TRANSTHORACIC ECHO (TTE) COMPLETE W DOPPLER/CF WO CONTRAST (11/12/2024 2:04 PM TELECOM SPECIALIST) LV EF 60-65 % CONS SCIMAGE Anatomical Region Laterality Modality Ultrasound 11/12/2024 12:5 9 PM TELECOM SPECIALIST Narrative 11/12/2024 2:46 PM TELECOM SPECIALIST [facility] [place] [address] Transthoracic Echocardiographic Report Patient Name: STACY HERRON : 1945 (79y 9m) Gender: F Study Date: 11/12/2024 12:59:37 PM Ht(Inch): 61 Wt(Lb): 136.02 BSA: 1.63 Community Specialist: Shy Kellogg RDCS Location: [facility] Order Provider: IRASEMA VALDEZ Heart Rate: 67 BMI: 25.7 BP: 136 / 84 Quality: The study images were of technically good quality. Ref Provider: IRASEMA VALDEZ PROCEDURES: Echocardiographic Report: ([id number], [id number]) Transthoracic complete echo with strain imaging, 2D, [...] By: Rom Breen M.D. 11/12/2024 2:46:23 PM TELECOM SPECIALIST Electronically Signed By: Rom Breen M.D. 11/12/2024 2:46:23 PM TELECOM SPECIALIST Procedure Note Rom Breen MD - 11/12/2024 [facility] [place] [address] Transthoracic Echocardiographic Report Patient Name: STACY HERRON : 1945 (79y 9m) Gender: F Study Date: 11/12/2024 12:59:37 PM Ht(Inch): 61 Wt(Lb): 136.02 BSA: 1.63 Community Specialist: Shy Kellogg [facility] Location: [facility] Order Provider:IRASEMA VALDEZ Heart Rate: 67 BMI: 25.7 BP: 136 / 84 Quality: The study images were oftechnically good quality. Ref Provider: IRASEMA VALDEZ PROCEDURES: Echocardiographic Report: ([id number], [id number]) Transthoracic complete echo withstrain imaging, 2D, spectral [...] study completed on 10-19-2024. No change compared [facility] study. ATTESTATION: I have reviewed and interpreted [...] By: Rom Breen M.D. 11/12/2024 2:46:23 PM TELECOM SPECIALIST Electronically Signed By: Rom Breen M.D. 11/12/2024 2:46:23 PM TELECOM SPECIALIST Irasema Valdez MD CV ECHO PROCEDURES Final Result * ECG 12 lead (10/20/2024 5:54 AM TELECOM SPECIALIST) Ventricular Rate EKG/Min 103 BPM [facility] Atrial Rate 103 BPM [facility] NV-Interval (MSEC) 154 ms [facility] QRS-Interval (MSEC) 112 ms [facility] QT-Interval (MSEC) 352 ms [facility] QTc 461 ms [facility] P [place] 49 degrees [facility] R [place] 49 degrees [facility] T [place] -25 degrees [facility] Diagnosis Sinus tachycardia Incomplete right bundle branch block ST & T wave abnormality, consider inferior ischemia ST & T wave abnormality, consider anterolateral ischemia Abnormal ECG Confirmed by Deborah Stacy MD ([id number]) on 10/22/2024 6:39:54 PM [facility] 10/20/2024 5:54 AM TELECOM SPECIALIST 10/22/2024 6:39 PM TELECOM SPECIALIST us Chanel Kelley PERFORMANCE TEST ENGINEER ECG ORDERABLES Final Resul t [facility] * eGFR (10/20/2024 4:35 AM TELECOM SPECIALIST) eGFR 69 >=60 mL/min/1. 73 m2 Comment: [...] last reviewed 2021. Blood 10/20/2024 4:35 AM TELECOM SPECIALIST 10/20/2024 5:15 AM TELECOM SPECIALIST us Terri Soni NP LAB BLOOD ORDERABLES Final Result [facility] [place] [address] * (ABNORMAL) Differential, auto (10/20/2024 4:35 AM TELECOM SPECIALIST) Neutrophil abs 7.6(H) 1.5 - 6.5 K/cumm Imm gran abs 0.0 0.0 - 0.1 K/cumm [facility] Lymphocyte abs 1.1 0.8 - 3.3 K/cumm [facility] Monocyte abs 0.9(H) 0.2 - 0.8 K/cumm [facility] Eosinophil abs 0.0 0.0 - 0.5 K/cumm [facility] Basophil abs 0.0 0.0 - 0.1 K/cumm [facility] Neutrophil pct 79.0 % [facility] Comment: Interpretive Data Percent cell count reference ranges are not reported, since discordance with absolute values may lead to misinterpretation of CBC data. Current Interpretive Data was last revised on 2017. Imm gran pct 0.4 % [facility] Comment: Interpretive Data Percent cell count reference ranges are not reported, since discordance with absolute values may lead to misinterpretation of CBC data. Current Interpretive Data was last revised on 2017. Lymphocyte pct 10.8 % [facility] Comment: Interpretive Data Percent cell count reference ranges are not reported, since discordance with absolute values may lead to misinterpretation of CBC data. Current Interpretive Data was last revised on 2017. Monocyte pct 9.4 % [facility] Comment: Interpretive Data Percent cell count reference ranges are not reported, since discordance with absolute values may lead to misinterpretation of CBC data. Current Interpretive Data was last revised on 2017. Eosinophil pct 0.2 % [facility] Comment: Interpretive Data Percent cell count reference ranges are not reported, since discordance with absolute values may lead to misinterpretation of CBC data. Current Interpretive Data was last revised on 2017. Basophil pct 0.2 % [facility] Comment: Interpretive Data Percent cell count reference ranges are not reported, since discordance with absolute values may lead to misinterpretation of CBC data. Current Interpretive Data was last revised on 2017. Blood 10/20/2024 4:35 AM TELECOM SPECIALIST 10/20/2024 5:15 AM TELECOM SPECIALIST us Terri Soni PERFORMANCE TEST ENGINEER LAB BLOOD ORDERABLES Final Result [facility] Department [place] [address] * (ABNORMAL) CBC with auto differential (10/20/2024 4:35 AM TELECOM SPECIALIST) WBC 9.7 3.8 - 9.9 K/cumm Hgb 11.0(L) 11.9 - 15.5 g/dL [facility] Hct 32.5(L) 35.6 - 45.5 % [facility] Plt 139(L) 150 - 400 K/cumm [facility] MPV 10.3 9.1 - 12.3 fL [facility] RBC 3.57(L) 3.90 - 5.20 M/cumm [facility] MCV 91.0 81.3 - 96.4 fL [facility] MCH 30.8 27.1 - 33.3 pg [facility] MCHC 33.8 32.3 - 35.7 g/dL [facility] RDW CV 14.1 11.1 - 14.9 % [facility] RDW SD 47.2 35.7 - 48.1 fL [facility] NRBC abs 0.00 0.00 - 0.01 K/cumm [facility] Blood 10/20/2024 4:35 AM TELECOM SPECIALIST 10/20/2024 5:15 AM TELECOM SPECIALIST Terri Soni PERFORMANCE TEST ENGINEER LAB BLOOD ORDERABLES Final Result [facility] [place] [place] [address] * Phosphorus (10/20/2024 4:35 AM TELECOM SPECIALIST) Phosphorus, pl 2.8 2.3 - 4.5 mg/dL Blood 10/20/2024 4:35 AM TELECOM SPECIALIST 10/20/2024 5:15 AM TELECOM SPECIALIST Terri Soni PERFORMANCE TEST ENGINEER LAB BLOOD ORDERABLES Final Result [facility] [place] [address] * Magnesium (10/20/2024 4:35 AM TELECOM SPECIALIST) Magnesium 1.8 1.4 - 2.5 mg/dL Blood 10/20/2024 4:35 AM TELECOM SPECIALIST 10/20/2024 5:15 AM TELECOM SPECIALIST Terri Soni NP LAB BLOOD ORDERABLES Final Result [facility] [place] [address] * Basic metabolic panel (10/20/2024 4:35 AM TELECOM SPECIALIST) Pathologist [facility] Sodium 140 135 - 145 mmol/L Potassium, pl 4.0 3.3 - 4.9 mmol/L [facility] Chloride 104 97 - 110 mmol/L [facility] CO2 28 22 - 32 mmol/L [facility] Anion gap 8 2 - 15 mmol/L [facility] BUN 15 6 - 25 mg/dL [facility] Creatinine 0.87 0.60 - 1.10 mg/dL [facility] Glucose 95 70 - 199 mg/dL [facility] Comment: Interpretive Data Fasting glucose >/= 126 [...] 2022. Calcium 8.8 8.5 - 10.3 mg/dL [facility] Blood 10/20/2024 4:35 AM TELECOM SPECIALIST 10/20/2024 5:15 AM TELECOM SPECIALIST Terri Soni NP LAB BLOOD ORDERABLES Final Result [facility] [place] [address] * TRANSTHORACIC ECHO (TTE) COMPLETE W DOPPLER/CF W CONTRAST (10/19/2024 5:49 PM TELECOM SPECIALIST) LV EF % CONS SCIMAGE Anatomical Region Laterality Modality Ultrasound 10/19/2024 4:43 PM TELECOM SPECIALIST Narrative 10/22/2024 11:13 AM TELECOM SPECIALIST [facility] [place] [address] Transthoracic Echocardiographic Report Patient Name: STACY HERRON : 1945 (79y 9m) Gender: F Study Date: 10/19/2024 04:43:04 PM Ht(Inch): 61 Wt(Lb): 134.92 BSA: 1.62 Community Specialist: Beth Guajardo [facility] Location: [id number] Order Provider: CHANEL KELLEY BMI: 25.49 BP: 115 / 84 Quality: The study images were of technically good quality. Ref Provider: CHANEL KELLEY PROCEDURES: Echocardiographic Report: ([id number], [id number], [id number]) Transthoracic complete echo with strain imaging and [...] [ 1.71 - 5.00 ] PV Accel Andrew 763.32 cm/sec2 AoR Diam 2D 2.93 cm [...] By: Bk Castillo MD 10/22/2024 10:57:14 AM TELECOM SPECIALIST Electronically Signed By: Rom Breen M.D. 10/22/2024 11:12:10 AM TELECOM SPECIALIST Procedure Note Rom Breen MD - 10/22/2024 [facility] [place] [address] Transthoracic Echocardiographic Report Patient Name: STACY HERRON : 1945 (79y 9m) Gender: F Study Date: 10/19/2024 04:43:04 PM Ht(Inch): 61 Wt(Lb): 134.92 BSA: 1.62 Community Specialist: Beth Guajardo [facility] Location: [id number] Order Provider:CHANEL KELLEY BMI: 25.49 BP: 115 / 84 Quality: The study images were oftechnically good quality. Ref Provider: CHANEL KELLEY PROCEDURES: Echocardiographic Report: ([id number], [id number], [id number]) Transthoracic completeecho with strain imaging and contrast, [...] [ 46.00 - 106.00 ] MV Decel Dyhr096.72 msec [ 104.00 - 258.00 ] ESV [...] [ 1.71 - 5.00 ] PV Accel Kgozr263.32 cm/sec2 AoR Diam 2D 2.93 cm [ [...] By: Bk Castillo MD 10/22/2024 10:57:14 AM TELECOM SPECIALIST Electronically Signed By: Rom Breen M.D. 10/22/2024 11:12:10 AM TELECOM SPECIALIST us Chanel Kelley NP CV ECHO PROCEDURES Final Re sult * Protime-INR (10/19/2024 11:50 AM TELECOM SPECIALIST) PT 11.0 9.7 - 13.0 sec INR 1.02 0.90 - 1.20 [facility] Comment: Interpretive data Oral anticoagulant therapeutic ranges: Venous thromboembolism prophylaxis or treatment: 2.0-3.0 CARDIOLOGY Standard range: 2.0-3.0 High-intensity range: 2.5-3.5 Refer to indication-specific guidelines for appropriate target ranges for prosthetic heart valve replacement. Current interpretive data was last revised on 2019. Blood 10/19/2024 11:5 0 AM TELECOM SPECIALIST 10/19/2024 12:38 PM TELECOM SPECIALIST Narrative [facility] - 10/19/2024 1:02 PM TELECOM SPECIALIST Baseline prior to apixaban initiation. Isaiah rCockett NP LAB BLOOD ORDERABLES Final R esult Performing Organization Address City/[facility]/ZIP Co de Phone Number [facility] Department [place] [address] * (ABNORMAL) Hepatic function panel (10/19/2024 11:50 AM TELECOM SPECIALIST) Pathologist [facility] Bilirubin, total 0.5 0.1 - 1.2 mg/dL Bilirubin, direct <0.2 0.1 - 0.3 mg/dL [facility] Protein, pl 7.5 6.5 - 8.5 g/dL [facility] Albumin 4.5 3.5 - 5.0 g/dL [facility] Alk phos 95 40 - 130 Units/L [facility] ALT 24 7 - 45 Units/L [facility] AST 55(H) 10 - 45 Units/L [facility] Blood 10/19/2024 11:5 0 AM TELECOM SPECIALIST 10/19/2024 12:40 PM TELECOM SPECIALIST Narrative [facility] - 10/19/2024 1:10 PM TELECOM SPECIALIST Baseline prior to apixaban initiation. Isaiah Crockett NP LAB BLOOD ORDERABLES Final R esult Performing Organization Address City/[facility]/ZIP Co de Phone Number [facility] Department [place] [address] * XR Chest PA Lateral 2 Views (10/19/2024 8:19 AM TELECOM SPECIALIST) Anatomical Region Laterality Modality Body, Chest N/A Computed Radiogr aphy 10/19/2024 11:0 9 AM TELECOM SPECIALIST Impressions 10/19/2024 11:45 AM TELECOM SPECIALIST Comparison is made to radiograph dated 10/18/2024 [...] Rodrigo Tolentino M.D. Narrative 10/19/2024 11:45 AM TELECOM SPECIALIST EXAMINATION: 2 view chest radiograph Procedure Note [...] by: Rodrigo Tolentino M.D. us Chanel Kelley PERFORMANCE TEST ENGINEER IMG XR PROCEDURES Final Res ult * ECG 12 lead (10/19/2024 4:24 AM TELECOM SPECIALIST) Ventricular Rate EKG/Min 102 BPM [facility] Atrial Rate 102 BPM [facility] NV-Interval (MSEC) 154 ms [facility] QRS-Interval (MSEC) 106 ms [facility] QT-Interval (MSEC) 376 ms [facility] QTc 490 ms [facility] P [place] 50 degrees [facility] R [place] 47 degrees [facility] T [place] -17 degrees [facility] Diagnosis Sinus tachycardia Low voltage QRS Incomplete right bundle branch block ST & T wave abnormality, consider anterior ischemia Abnormal ECG When compared with ECG of 18-OCT-2024 13:57, No significant change was found Confirmed by BENNY ADHIKARI M.D ([id number]) on 10/19/2024 10:23:40 AM [facility] 10/19/2024 4:24 AM TELECOM SPECIALIST 10/19/2024 10:23 AM TELECOM SPECIALIST us Chanel Kelley NP ECG ORDERABLES Final Resul t [facility] * eGFR (10/18/2024 11:26 PM TELECOM SPECIALIST) eGFR 60 >=60 mL/min/1. 73 m2 Comment: [...] reviewed 2021. Blood 10/18/2024 11:2 6 PM TELECOM SPECIALIST 10/18/2024 11:49 PM TELECOM SPECIALIST us Terri A. Soni PERFORMANCE TEST ENGINEER LAB BLOOD ORDERABLES Final Result [facility] Department [place] [address] * (ABNORMAL) Differential, auto (10/18/2024 11:26 PM TELECOM SPECIALIST) Neutrophil abs 7.1(H) 1.5 - 6.5 K/cumm Imm gran abs 0.0 0.0 - 0.1 K/cumm [facility] Lymphocyte abs 0.5(L) 0.8 - 3.3 K/cumm [facility] Monocyte abs 0.4 0.2 - 0.8 K/cumm [facility] Eosinophil abs 0.0 0.0 - 0.5 K/cumm [facility] Basophil abs 0.0 0.0 - 0.1 K/cumm [facility] Neutrophil pct 88.7 % [facility] Comment: Interpretive Data Percent cell count reference ranges are not reported, since discordance with absolute values may lead to misinterpretation of CBC data. Current Interpretive Data was last revised on 2017. Imm gran pct 0.3 % [facility] Comment: Interpretive Data Percent cell count reference ranges are not reported, since discordance with absolute values may lead to misinterpretation of CBC data. Current Interpretive Data was last revised on 2017. Lymphocyte pct 6.4 % [facility] Comment: Interpretive Data Percent cell count reference ranges are not reported, since discordance with absolute values may lead to misinterpretation of CBC data. Current Interpretive Data was last revised on 2017. Monocyte pct 4.6 % [facility] Comment: Interpretive Data Percent cell count reference ranges are not reported, since discordance with absolute values may lead to misinterpretation of CBC data. Current Interpretive Data was last revised on 2017. Eosinophil pct 0.0 % [facility] Comment: Interpretive Data Percent cell count reference ranges are not reported, since discordance with absolute values may lead to misinterpretation of CBC data. Current Interpretive Data was last revised on 2017. Basophil pct 0.0 % [facility] Comment: Interpretive Data Percent cell count reference ranges are not reported, since discordance with absolute values may lead to misinterpretation of CBC data. Current Interpretive Data was last revised on 2017. Blood 10/18/2024 11:2 6 PM TELECOM SPECIALIST 10/18/2024 11:50 PM TELECOM SPECIALIST Terri Soni PERFORMANCE TEST ENGINEER LAB BLOOD ORDERABLES Final Result Performing Organization Address City/[facility]/ZIP Co de Phone Number [facility] Department [place] [address] * (ABNORMAL) CBC with auto differential (10/18/2024 11:26 PM TELECOM SPECIALIST) [facility] WBC 8.0 3.8 - 9.9 K/cumm Hgb 11.8(L) 11.9 - 15.5 g/dL [facility] Hct 36.3 35.6 - 45.5 % [facility] Plt 189 150 - 400 K/cumm [facility] MPV 10.0 9.1 - 12.3 fL [facility] RBC 3.96 3.90 - 5.20 M/cumm [facility] MCV 91.7 81.3 - 96.4 fL [facility] MCH 29.8 27.1 - 33.3 pg [facility] MCHC 32.5 32.3 - 35.7 g/dL [facility] RDW CV 13.6 11.1 - 14.9 % [facility] RDW SD 46.4 35.7 - 48.1 fL [facility] NRBC abs 0.00 0.00 - 0.01 K/cumm [facility] Blood 10/18/2024 11:2 6 PM TELECOM SPECIALIST 10/18/2024 11:50 PM TELECOM SPECIALIST Terri Soni PERFORMANCE TEST ENGINEER LAB BLOOD ORDERABLES Final Result Performing Organization Address [facility] Co de Phone Number [facility] Department [place] [address] * Phosphorus (10/18/2024 11:26 PM TELECOM SPECIALIST) [facility] Phosphorus, pl 2.4 2.3 - 4.5 mg/dL Blood 10/18/2024 11:2 6 PM TELECOM SPECIALIST 10/18/2024 11:49 PM TELECOM SPECIALIST us Terri Soni PERFORMANCE TEST ENGINEER LAB BLOOD ORDERABLES Final Result Performing Organization Address [facility] de Phone Number [facility] [place] [address] * Magnesium (10/18/2024 11:26 PM TELECOM SPECIALIST) [facility] Magnesium 1.9 1.4 - 2.5 mg/dL Blood 10/18/2024 11:2 6 PM TELECOM SPECIALIST 10/18/2024 11:49 PM TELECOM SPECIALIST Terri Soni PERFORMANCE TEST ENGINEER LAB BLOOD ORDERABLES Final Result Performing Organization Address [facility] de Phone Number [facility] [place] [address] * (ABNORMAL) Basic metabolic panel (10/18/2024 11:26 PM TELECOM SPECIALIST) [facility] Sodium 141 135 - 145 mmol/L Potassium, pl 4.4 3.3 - 4.9 mmol/L [facility] Chloride 105 97 - 110 mmol/L [facility] CO2 23 22 - 32 mmol/L [facility] Anion gap 13 2 - 15 mmol/L [facility] BUN 20 6 - 25 mg/dL [facility] Creatinine 0.97 0.60 - 1.10 mg/dL [facility] Glucose 240(H) 70 - 199 mg/dL [facility] Comment: Interpretive Data Fasting glucose >/= 126 [...] 2022. Calcium 9.5 8.5 - 10.3 mg/dL [facility] Blood 10/18/2024 11:2 6 PM TELECOM SPECIALIST 10/18/2024 11:49 PM TELECOM SPECIALIST us Terri Soni PERFORMANCE TEST ENGINEER LAB BLOOD ORDERABLES Final Result [facility] Department [place] [address] * XR Chest 1 view (10/18/2024 2:22 PM TELECOM SPECIALIST) Anatomical Region Laterality Modality Body, Chest N/A Computed Radiogr aphy 10/18/2024 3:07 PM TELECOM SPECIALIST Impressions 10/18/2024 4:23 PM TELECOM SPECIALIST Comparison is made to chest radiograph of [...] Rubina Hernandez M.D. Narrative 10/18/2024 4:23 PM TELECOM SPECIALIST EXAMINATION: 1 view chest radiograph Procedure Note [...] Res ult * eGFR (10/18/2024 2:10 PM TELECOM SPECIALIST) eGFR 63 >=60 mL/min/1. 73 m2 Comment: [...] last reviewed 2021. Blood 10/18/2024 2:10 PM TELECOM SPECIALIST 10/18/2024 2:25 PM TELECOM SPECIALIST Chanel Kelley NP LAB BLOOD ORDERABLES Final Result [facility] Department [place] [address] * Differential, auto (10/18/2024 2:10 PM TELECOM SPECIALIST) Neutrophil abs 4.8 1.5 - 6.5 K/cumm Imm gran abs 0.0 0.0 - 0.1 K/cumm [facility] Lymphocyte abs 0.8 0.8 - 3.3 K/cumm [facility] Monocyte abs 0.2 0.2 - 0.8 K/cumm [facility] Eosinophil abs 0.0 0.0 - 0.5 K/cumm [facility] Basophil abs 0.0 0.0 - 0.1 K/cumm [facility] Neutrophil pct 81.5 % [facility] Comment: Interpretive Data Percent cell count reference ranges are not reported, since discordance with absolute values may lead to misinterpretation of CBC data. Current Interpretive Data was last revised on 2017. Imm gran pct 0.5 % [facility] Comment: Interpretive Data Percent cell count reference ranges are not reported, since discordance with absolute values may lead to misinterpretation of CBC data. Current Interpretive Data was last revised on 2017. Lymphocyte pct 13.9 % [facility] Comment: Interpretive Data Percent cell count reference ranges are not reported, since discordance with absolute values may lead to misinterpretation of CBC data. Current Interpretive Data was last revised on 2017. Monocyte pct 3.3 % [facility] Comment: Interpretive Data Percent cell count reference ranges are not reported, since discordance with absolute values may lead to misinterpretation of CBC data. Current Interpretive Data was last revised on 2017. Eosinophil pct 0.5 % [facility] Comment: Interpretive Data Percent cell count reference ranges are not reported, since discordance with absolute values may lead to misinterpretation of CBC data. Current Interpretive Data was last revised on 2017. Basophil pct 0.3 % [facility] Comment: Interpretive Data Percent cell count reference ranges are not reported, since discordance with absolute values may lead to misinterpretation of CBC data. Current Interpretive Data was last revised on 2017. Blood 10/18/2024 2:10 PM TELECOM SPECIALIST 10/18/2024 2:14 PM TELECOM SPECIALIST us Chanel Kelley PERFORMANCE TEST ENGINEER LAB BLOOD ORDERABLES Final Result [facility] Department [place] [address] * (ABNORMAL) CBC with auto differential (10/18/2024 2:10 PM TELECOM SPECIALIST) WBC 5.8 3.8 - 9.9 K/cumm Hgb 11.7(L) 11.9 - 15.5 g/dL [facility] Hct 34.6(L) 35.6 - 45.5 % [facility] Plt 202 150 - 400 K/cumm [facility] MPV 9.9 9.1 - 12.3 fL [facility] RBC 3.83(L) 3.90 - 5.20 M/cumm [facility] MCV 90.3 81.3 - 96.4 fL [facility] MCH 30.5 27.1 - 33.3 pg [facility] MCHC 33.8 32.3 - 35.7 g/dL [facility] RDW CV 13.6 11.1 - 14.9 % [facility] RDW SD 45.2 35.7 - 48.1 fL [facility] NRBC abs 0.00 0.00 - 0.01 K/cumm [facility] Blood 10/18/2024 2:10 PM TELECOM SPECIALIST 10/18/2024 2:14 PM TELECOM SPECIALIST Chanel Kelley NP LAB BLOOD ORDERABLES Final Result Performing Organization Address [facility] de Phone Number [facility] Department [place] [address] * (ABNORMAL) aPTT (10/18/2024 2:10 PM TELECOM SPECIALIST) [facility] aPTT 66(H) 28 - 38 sec Comment: Interpretive Data Heparin therapeutic range: 66.0 - 100.0 seconds. Range based on correlation with therapeutic heparin activity range of 0.3 - 0.7 Units/mL. Current interpretive data was last revised on 2023. Blood 10/18/2024 2:10 PM TELECOM SPECIALIST 10/18/2024 2:14 PM TELECOM SPECIALIST Chanel Kelley NP LAB BLOOD ORDERABLES Final Result Performing Organization Address City/[facility] de Phone Number [facility] Department [place] [address] * (ABNORMAL) Protime-INR (10/18/2024 2:10 PM TELECOM SPECIALIST) [facility] PT 13.1(H) 9.7 - 13.0 sec INR 1.21(H) 0.90 - 1.20 [facility] Comment: Interpretive data Oral anticoagulant therapeutic ranges: Venous thromboembolism prophylaxis or treatment: 2.0-3.0 CARDIOLOGY Standard range: 2.0-3.0 High-intensity range: 2.5-3.5 Refer to indication-specific guidelines for appropriate target ranges for prosthetic heart valve replacement. Current interpretive data was last revised on 2019. Blood 10/18/2024 2:10 PM TELECOM SPECIALIST 10/18/2024 2:14 PM TELECOM SPECIALIST Chanel Kelley NP LAB BLOOD ORDERABLES Final Result Performing Organization Address City/[facility] Co de Phone Number [facility] Department [place] [address] * Magnesium (10/18/2024 2:10 PM TELECOM SPECIALIST) [facility] Magnesium 1.9 1.4 - 2.5 mg/dL Blood 10/18/2024 2:10 PM TELECOM SPECIALIST 10/18/2024 2:14 PM TELECOM SPECIALIST Chanel Kelley NP LAB BLOOD ORDERABLES Final Result Performing Organization Address [facility] de Phone Number [facility] Department [place] [address] * (ABNORMAL) Comprehensive metabolic panel (10/18/2024 2:10 PM TELECOM SPECIALIST) [facility] Sodium 142 135 - 145 mmol/L Potassium, pl 4.2 3.3 - 4.9 mmol/L [facility] Chloride 108 97 - 110 mmol/L [facility] CO2 24 22 - 32 mmol/L [facility] Anion gap 10 2 - 15 mmol/L [facility] BUN 20 6 - 25 mg/dL [facility] Creatinine 0.93 0.60 - 1.10 mg/dL [facility] Glucose 123 70 - 199 mg/dL [facility] Comment: Interpretive Data Fasting glucose >/= 126 [...] 2022. Calcium 9.2 8.5 - 10.3 mg/dL [facility] Bilirubin, total 0.5 0.1 - 1.2 mg/dL [facility] Protein, pl 6.6 6.5 - 8.5 g/dL [facility] Albumin 4.0 3.5 - 5.0 g/dL [facility] Alk phos 78 40 - 130 Units/L [facility] ALT 20 7 - 45 Units/L [facility] AST 50(H) 10 - 45 Units/L [facility] Blood 10/18/2024 2:10 PM TELECOM SPECIALIST 10/18/2024 2:14 PM TELECOM SPECIALIST us Chanel Kelley NP LAB BLOOD ORDERABLES Final Result [facility] Department [place] [address] * ECG 12 lead (10/18/2024 1:57 PM TELECOM SPECIALIST) Pathologist [facility] Ventricular Rate EKG/Min 88 BPM [facility] Atrial Rate 88 BPM [facility] NV-Interval (MSEC) 162 ms [facility] QRS-Interval (MSEC) 112 ms [facility] QT-Interval (MSEC) 402 ms [facility] QTc 486 ms [facility] P [place] 60 degrees [facility] R [place] 69 degrees [facility] T [place] -27 degrees [facility] Diagnosis Normal sinus rhythm Incomplete right bundle branch block ST & T wave abnormality, consider inferior ischemia ST & T wave abnormality, consider anterior ischemia Prolonged QT Abnormal ECG When compared with ECG of 16-OCT-2024 11:26, Right bundle branch block is new Confirmed by MARV GARCIA M.D ([id number]) on 10/18/2024 4:04:39 PM [facility] [employer] 10/18/2024 1:57 PM TELECOM SPECIALIST 10/18/2024 4:04 PM TELECOM SPECIALIST us Chanel Kelley NP ECG ORDERABLES Final Resul t [facility] * TRANSCATHETER TRICUSPID VALVE IMPLANT, INTRACARDIAC ECHOCARDIOGRAM (10/18/2024 1:40 PM TELECOM SPECIALIST) Anatomical Region Laterality Modality X-Ray Angiograph y Narrative 10/18/2024 2:46 PM TELECOM SPECIALIST Cardiac Catheterization Transcatheter Tricuspid Valve Replacement Name: [...] Perioperative antibiotics TTE in AM Transfer to [facility] Irasema Valdez MD milk vendor Co-Maintenance Mechanic Engine of Valvular Heart Disease us Cristhian Rodgers MD CV CARDIAC CATH PROCEDURES Fi nal Result * NADINE Guidance During Cardiac [place] Int[place] [id number] (10/18/2024 1:30 PM TELECOM SPECIALIST) LV EF % CONS SCIMAGE BSA 1.64 m2 CONS SCIMAGE Anatomical Region Laterality Modality Echocardiography 10/18/2024 11:3 7 AM TELECOM SPECIALIST Narrative 10/18/2024 3:47 PM TELECOM SPECIALIST [facility] [facility] [place] [address] Transesophageal Echocardiographic Report Patient Name: STACY HERRON : 1945 (79y 9m) Gender: F Study Date: 10/18/2024 11:37:56 AM Ht(Inch): Wt(Lb): BSA: Community Specialist: Location: 5637 Order Provider: DEBORAH STACY BMI: Quality: Good Ref Provider: DEBORAH STACY PROCEDURES: Transesophageal Echo Report: [id number] Echocardiography, transesophageal (NADINE) for guidance of a [...] anesthesia. The probe was passed by the taker off braker machine. Standard views were obtained in the transgastric, [...] By: Deborah Stacy MD 10/18/2024 3:46:36 PM TELECOM SPECIALIST Electronically Signed By: Deborah Stacy MD 10/18/2024 3:46:36 PM TELECOM SPECIALIST Procedure Note Deborah Stacy MD - 10/18/2024 [facility] [place] [address] Transesophageal Echocardiographic Report Patient Name: STACY HERRON : 1945 (79y 9m) Gender: F Study Date: 10/18/2024 11:37:56 AM Ht(Inch): Wt(Lb): BSA: Community Specialist: Location: [facility] Order Provider: DEBORAH STACY BMI: Quality: Good Ref Provider: DEBORAH STACY PROCEDURES: Transesophageal Echo Report: [id number] Echocardiography, transesophageal (NADINE)for guidance of a transcatheter [...] anesthesia. The probe was passed by the taker off braker machine. Standardviews were obtained in the transgastric, mid [...] the tricuspid valve along with intraprocedural guidance [id number]. 5. Structral NADINE performed to guide TTVR: [...] By: Deborah Stacy MD 10/18/2024 3:46:36 PM TELECOM SPECIALIST Electronically Signed By: Deborah Stacy MD 10/18/2024 3:46:36 PM TELECOM SPECIALIST us Deborah Stacy MD CV ECHO PROCEDURES Final Resul t * (ABNORMAL) POCT Activated clotting time, low range (10/18/2024 12:52 PM TELECOM SPECIALIST) ACT 316(H) 123 - 168 sec POC Performer [id number] [facility] POC Device Number [id number] [facility] Blood 10/18/2024 12:5 2 PM TELECOM SPECIALIST 10/18/2024 12:52 PM TELECOM SPECIALIST Cristhian Rodgers MD LAB POCT ORDERABLES - DEVICE Final Result Performing Organization Address [facility] Co de Phone Number [facility] [place] [address] * (ABNORMAL) POCT Activated clotting time, low range (10/18/2024 12:27 PM TELECOM SPECIALIST) ACT 289(H) 123 - 168 sec POC Performer [id number] [facility] POC Device Number [id number] [facility] Blood 10/18/2024 12:2 7 PM TELECOM SPECIALIST 10/18/2024 12:27 PM TELECOM SPECIALIST Cristhian Rodgers MD LAB POCT ORDERABLES - DEVICE Final Result Performing Organization Address [facility] de Phone Number [facility] Department [place] [address] * (ABNORMAL) POCT Activated clotting time, low range (10/18/2024 12:19 PM TELECOM SPECIALIST) ACT 223(H) 123 - 168 sec POC Performer [id number] [facility] POC Device Number [id number] [facility] Blood 10/18/2024 12:1 9 PM TELECOM SPECIALIST 10/18/2024 12:19 PM TELECOM SPECIALIST Cristhian Rodgers MD LAB POCT ORDERABLES - DEVICE Final Result Performing Organization Address [facility] [place] [address] * [place] AN PROCEDURE PLACEHOLDER (10/18/2024 11:32 AM TELECOM SPECIALIST) Narrative Chanelle Doyle MD - 10/18/2024 11:32 AM TELECOM SPECIALIST Chanelle Doyle MD 10/18/2024 11:32 AM Arterial Line Patient location: OR Indication: continuous blood pressure monitoring and blood sampling needed Staff: Supervising provider: Chanelle Doyle MD Placed by: HOUSEKEEPING AIDE: Janice Springer CRNA Procedure prep: Prep solution: chlorhexadine/alcohol Prep: provider hat/mask Arterial line: Catheter size: 20 gauge Catheter length: 1 and 3/4 inch Catheter type: wire-guided catheter Seldinger technique: yes Laterality: right Site: radial artery Line secured: Tegaderm Results: good waveform Number of attempts: 1 Assessment: Events: patient tolerated procedure well with no complications Chanelle Doyle MD ANESTHESIA ORDERABLES F inal Result * NV AN ELECTIVE ENDOTRACHEAL AIRWAY, NV AN PROCEDURE PLACEHOLDER (10/18/2024 11:32 AM TELECOM SPECIALIST) Narrative Chanelle Doyle MD - 10/18/2024 11:32 AM TELECOM SPECIALIST Chanelle Doyle MD 10/18/2024 11:32 AM Airway [...] with: silk tape Number of attempts: 1no Chanelle Doyle MD ANESTHESIA ORDERABLES F inal Result * POCT glucose (10/18/2024 10:42 AM TELECOM SPECIALIST) Glucose, POC 99 70 - 199 mg/dL Blood 10/18/2024 10:4 2 AM TELECOM SPECIALIST 10/18/2024 10:42 AM TELECOM SPECIALIST us Griselda Scruggs MD LAB POCT ORDERABLES - DEVICE Fi nal Result [facility] [place] [place] [address] * Check Sample (10/18/2024 10:40 AM TELECOM SPECIALIST) ABO Rh B Positive BJ HCLL OTHER 10/18/2024 10:4 0 AM TELECOM SPECIALIST 10/18/2024 10:51 AM TELECOM SPECIALIST us Cristhian Rodgers MD LAB BLOOD ORDERABLES Final Re sult Performing Organization Address City/[facility] Co de Phone Number [facility] [place] [place] [address] BJ * Prepare RBC: 4 Units (10/18/2024 10:25 AM TELECOM SPECIALIST) Product code [id number] Unit Number [id number] 4-E [facility] Product Blood Type BPOS [facility] Dispense Status RETURNED [facility] Product code [id number] [facility] Unit Number [id number] 3-P [facility] Product Blood Type BPOS [facility] Dispense Status RETURNED [facility] Product code [id number] [facility] Unit Number [id number] 5-P [facility] Product Blood Type BPOS [facility] Dispense Status RETURNED [facility] Product code [id number] [facility] Unit Number [id number] 2-5 [facility] Product Blood Type BPOS [facility] Dispense Status RETURNED [facility] Blood 10/18/2024 10:2 5 AM TELECOM SPECIALIST 10/18/2024 10:24 AM TELECOM SPECIALIST Narrative [facility] - 10/18/2024 2:34 PM TELECOM SPECIALIST Specify Procedure:->transcatheter tricuspic valve implant Are special requirements needed? (All products are leukoreduced and CMV- safe)->No Julieta Gamino NP BLOOD BANK PRODUCT OR DERABLES Final Result Performing Organization Address [facility] Co de Phone Number [facility] [place] [place] [address] * (ABNORMAL) eGFR (10/18/2024 3:48 AM TELECOM SPECIALIST) eGFR 45(L) >=60 mL/min/1. 73 m2 Comment: [...] last reviewed 2021. Blood 10/18/2024 3:48 AM TELECOM SPECIALIST 10/18/2024 4:44 AM TELECOM SPECIALIST us Griselda Scruggs MD LAB BLOOD ORDERABLES Final Resu lt Performing Organization Address City/[facility]/ZIP Co de Phone Number [facility] [place] [place] [address] * Differential, auto (10/18/2024 3:48 AM TELECOM SPECIALIST) Neutrophil abs 3.1 1.5 - 6.5 K/cumm Imm gran abs 0.0 0.0 - 0.1 K/cumm [facility] Lymphocyte abs 1.5 0.8 - 3.3 K/cumm [facility] Monocyte abs 0.5 0.2 - 0.8 K/cumm [facility] Eosinophil abs 0.1 0.0 - 0.5 K/cumm [facility] Basophil abs 0.0 0.0 - 0.1 K/cumm [facility] Neutrophil pct 59.6 % [facility] Comment: Interpretive Data Percent cell count reference ranges are not reported, since discordance with absolute values may lead to misinterpretation of CBC data. Current Interpretive Data was last revised on 2017. Imm gran pct 0.2 % [facility] Comment: Interpretive Data Percent cell count reference ranges are not reported, since discordance with absolute values may lead to misinterpretation of CBC data. Current Interpretive Data was last revised on 2017. Lymphocyte pct 28.6 % [facility] Comment: Interpretive Data Percent cell count reference ranges are not reported, since discordance with absolute values may lead to misinterpretation of CBC data. Current Interpretive Data was last revised on 2017. Monocyte pct 9.9 % [facility] Comment: Interpretive Data Percent cell count reference ranges are not reported, since discordance with absolute values may lead to misinterpretation of CBC data. Current Interpretive Data was last revised on 2017. Eosinophil pct 1.3 % [facility] Comment: Interpretive Data Percent cell count reference ranges are not reported, since discordance with absolute values may lead to misinterpretation of CBC data. Current Interpretive Data was last revised on 2017. Basophil pct 0.4 % [facility] Comment: Interpretive Data Percent cell count reference ranges are not reported, since discordance with absolute values may lead to misinterpretation of CBC data. Current Interpretive Data was last revised on 2017. Blood 10/18/2024 3:48 AM TELECOM SPECIALIST 10/18/2024 4:44 AM TELECOM SPECIALIST us Griselda Scruggs MD LAB BLOOD ORDERABLES Final Resu lt [facility] Department [place] [address] * (ABNORMAL) CBC with auto differential (10/18/2024 3:48 AM TELECOM SPECIALIST) [facility] WBC 5.3 3.8 - 9.9 K/cumm Hgb 11.9 11.9 - 15.5 g/dL [facility] Hct 35.5(L) 35.6 - 45.5 % [facility] Plt 226 150 - 400 K/cumm [facility] MPV 10.0 9.1 - 12.3 fL [facility] RBC 3.94 3.90 - 5.20 M/cumm [facility] MCV 90.1 81.3 - 96.4 fL [facility] MCH 30.2 27.1 - 33.3 pg [facility] MCHC 33.5 32.3 - 35.7 g/dL [facility] RDW CV 13.7 11.1 - 14.9 % [facility] RDW SD 45.1 35.7 - 48.1 fL [facility] NRBC abs 0.00 0.00 - 0.01 K/cumm [facility] Blood 10/18/2024 3:48 AM TELECOM SPECIALIST 10/18/2024 4:44 AM TELECOM SPECIALIST Griselda Scruggs MD LAB BLOOD ORDERABLES Final Resu lt [facility] Department [place] [address] * Protime-INR (10/18/2024 3:48 AM TELECOM SPECIALIST) Pathologist [facility] PT 11.6 9.7 - 13.0 sec INR 1.07 0.90 - 1.20 [facility] Comment: Interpretive data Oral anticoagulant therapeutic ranges: Venous thromboembolism prophylaxis or treatment: 2.0-3.0 CARDIOLOGY Standard range: 2.0-3.0 High-intensity range: 2.5-3.5 Refer to indication-specific guidelines for appropriate target ranges for prosthetic heart valve replacement. Current interpretive data was last revised on 2019. Blood 10/18/2024 3:48 AM TELECOM SPECIALIST 10/18/2024 4:51 AM TELECOM SPECIALIST Griselda Scruggs MD LAB BLOOD ORDERABLES Final Resu lt Performing Organization Address [facility] de Phone Number [facility] [place] [address] * Phosphorus (10/18/2024 3:48 AM TELECOM SPECIALIST) Pathologist [facility] Phosphorus, pl 4.3 2.3 - 4.5 mg/dL Blood 10/18/2024 3:48 AM TELECOM SPECIALIST 10/18/2024 4:44 AM TELECOM SPECIALIST Griselda Scruggs MD LAB BLOOD ORDERABLES Final Resu lt Performing Organization Address [facility] de Phone Number [facility] [place] [place] [address] * Magnesium (10/18/2024 3:48 AM TELECOM SPECIALIST) [facility] Magnesium 2.0 1.4 - 2.5 mg/dL Blood 10/18/2024 3:48 AM TELECOM SPECIALIST 10/18/2024 4:44 AM TELECOM SPECIALIST Griselda Scruggs MD LAB BLOOD ORDERABLES Final Resu lt Performing Organization Address [facility] [place] [address] * (ABNORMAL) Basic metabolic panel (10/18/2024 3:48 AM TELECOM SPECIALIST) Pathologist [facility] Sodium 141 135 - 145 mmol/L Potassium, pl 3.7 3.3 - 4.9 mmol/L [facility] Chloride 103 97 - 110 mmol/L [facility] CO2 27 22 - 32 mmol/L [facility] Anion gap 11 2 - 15 mmol/L [facility] BUN 26(H) 6 - 25 mg/dL [facility] Creatinine 1.23(H) 0.60 - 1.10 mg/dL [facility] Glucose 103 70 - 199 mg/dL [facility] Comment: Interpretive Data Fasting glucose >/= 126 [...] 2022. Calcium 9.8 8.5 - 10.3 mg/dL [facility] Blood 10/18/2024 3:48 AM TELECOM SPECIALIST 10/18/2024 4:44 AM TELECOM SPECIALIST us Griselda Scruggs MD LAB BLOOD ORDERABLES Final Resu lt [facility] Department [place] [address] * eGFR (10/17/2024 4:08 AM TELECOM SPECIALIST) eGFR 60 >=60 mL/min/1. 73 m2 Comment: [...] last reviewed 2021. Blood 10/17/2024 4:08 AM TELECOM SPECIALIST 10/17/2024 5:29 AM TELECOM SPECIALIST us Griselda Redding MD LAB BLOOD ORDERABLES Final Resul t Performing Organization Address [facility] de Phone Number [facility] [place] [place] [address] * (ABNORMAL) CBC without differential (10/17/2024 4:08 AM TELECOM SPECIALIST) WBC 3.5(L) 3.8 - 9.9 K/cumm Hgb 11.6(L) 11.9 - 15.5 g/dL [facility] Hct 34.2(L) 35.6 - 45.5 % [facility] Plt 205 150 - 400 K/cumm [facility] MPV 10.2 9.1 - 12.3 fL [facility] RBC 3.81(L) 3.90 - 5.20 M/cumm [facility] MCV 89.8 81.3 - 96.4 fL [facility] MCH 30.4 27.1 - 33.3 pg [facility] MCHC 33.9 32.3 - 35.7 g/dL [facility] RDW CV 14.0 11.1 - 14.9 % [facility] RDW SD 45.9 35.7 - 48.1 fL [facility] NRBC abs 0.00 0.00 - 0.01 K/cumm [facility] Blood 10/17/2024 4:08 AM TELECOM SPECIALIST 10/17/2024 5:30 AM TELECOM SPECIALIST us Griselda Redding MD LAB BLOOD ORDERABLES Final Resul t Performing Organization Address [facility] Co de Phone Number [facility] Department [place] [address] * Comprehensive metabolic panel (10/17/2024 4:08 AM TELECOM SPECIALIST) Pathologist [facility] Sodium 142 135 - 145 mmol/L Potassium, pl 4.3 3.3 - 4.9 mmol/L [facility] Chloride 108 97 - 110 mmol/L [facility] CO2 27 22 - 32 mmol/L [facility] Anion gap 7 2 - 15 mmol/L [facility] BUN 22 6 - 25 mg/dL [facility] Creatinine 0.97 0.60 - 1.10 mg/dL [facility] Glucose 95 70 - 199 mg/dL [facility] Comment: Interpretive Data Fasting glucose >/= 126 [...] 2022. Calcium 9.5 8.5 - 10.3 mg/dL [facility] Bilirubin, total 0.7 0.1 - 1.2 mg/dL [facility] Protein, pl 6.6 6.5 - 8.5 g/dL [facility] Albumin 4.0 3.5 - 5.0 g/dL [facility] Alk phos 81 40 - 130 Units/L [facility] ALT 18 7 - 45 Units/L [facility] AST 20 10 - 45 Units/L [facility] Blood 10/17/2024 4:08 AM TELECOM SPECIALIST 10/17/2024 5:29 AM TELECOM SPECIALIST us Griselda Redding MD LAB BLOOD ORDERABLES Final Resul t [facility] Department [place] [address] * TYPE AND SCREEN 14 DAY (10/16/2024 12:11 PM TELECOM SPECIALIST) Miguel, indirect Negative ABO Rh B Positive [facility] Blood 10/16/2024 12:1 1 PM TELECOM SPECIALIST 10/16/2024 12:52 PM TELECOM SPECIALIST Narrative MARTHA BURR - 10/16/2024 2:57 PM TELECOM SPECIALIST Is this test being ordered in advance for a procedure?->Yes Expected date of procedure:->10/18/24 Has the patient been transfused in the past 3 months?->No Has the patient been in the past 3 months?->No Julieta Gamino NP LAB BLOOD BANK TEST O RDERABLES Final Result Performing Organization Address City/[facility]/ZIP Co de Phone Number [facility] [place] [address] * eGFR (10/16/2024 12:11 PM TELECOM SPECIALIST) eGFR 63 >=60 mL/min/1. 73 m2 Comment: [...] reviewed 2021. Blood 10/16/2024 12:1 1 PM TELECOM SPECIALIST 10/16/2024 12:53 PM TELECOM SPECIALIST Julieta Gamino NP LAB BLOOD ORDERABLES Final Result Performing Organization Address [facility]/ZIP Co de Phone Number [facility] [place] [address] * Differential, auto (10/16/2024 12:11 PM TELECOM SPECIALIST) Neutrophil abs 3.5 1.5 - 6.5 K/cumm Imm gran abs 0.0 0.0 - 0.1 K/cumm [facility] Lymphocyte abs 1.6 0.8 - 3.3 K/cumm [facility] Monocyte abs 0.5 0.2 - 0.8 K/cumm [facility] Eosinophil abs 0.1 0.0 - 0.5 K/cumm [facility] Basophil abs 0.0 0.0 - 0.1 K/cumm [facility]rophil pct 60.2 % [facility] Comment: Interpretive Data Percent cell count reference ranges are not reported, since discordance with absolute values may lead to misinterpretation of CBC data. Current Interpretive Data was last revised on 2017. Imm gran pct 0.3 % [facility] Comment: Interpretive Data Percent cell count reference ranges are not reported, since discordance with absolute values may lead to misinterpretation of CBC data. Current Interpretive Data was last revised on 2017. Lymphocyte pct 28.3 % [facility] Comment: Interpretive Data Percent cell count reference ranges are not reported, since discordance with absolute values may lead to misinterpretation of CBC data. Current Interpretive Data was last revised on 2017. Monocyte pct 9.3 % [facility] Comment: Interpretive Data Percent cell count reference ranges are not reported, since discordance with absolute values may lead to misinterpretation of CBC data. Current Interpretive Data was last revised on 2017. Eosinophil pct 1.4 % [facility] Comment: Interpretive Data Percent cell count reference ranges are not reported, since discordance with absolute values may lead to misinterpretation of CBC data. Current Interpretive Data was last revised on 2017. Basophil pct 0.5 % [facility] Comment: Interpretive Data Percent cell count reference ranges are not reported, since discordance with absolute values may lead to misinterpretation of CBC data. Current Interpretive Data was last revised on 2017. Blood 10/16/2024 12:1 1 PM TELECOM SPECIALIST 10/16/2024 12:53 PM TELECOM SPECIALIST Julieta Gamino PERFORMANCE TEST ENGINEER LAB BLOOD ORDERABLES Final Result Performing Organization Address [facility] Co de Phone [place] [address] * CPAP aPTT algorithm (10/16/2024 12:11 PM TELECOM SPECIALIST) aPTT 30 28 - 38 sec Comment: Interpretive Data Heparin therapeutic range: 66.0 - 100.0 seconds. Range based on correlation with therapeutic heparin activity range of 0.3 - 0.7 Units/mL. Current interpretive data was last revised on 2023. Blood 10/16/2024 12:1 1 PM TELECOM SPECIALIST 10/16/2024 12:11 PM TELECOM SPECIALIST Julieta Gamino PERFORMANCE TEST ENGINEER LAB BLOOD ORDERABLES Final Result Performing Organization Address [facility] de [place] [address] * (ABNORMAL) Urinalysis reflex to microscopic and culture Urine, clean voided (10/16/2024 12:11 PM TELECOM SPECIALIST) Color, ur Straw Yellow Clarity, ur Clear Clear [facility] Specific gravity, ur 1.014 1.003 - 1.030 [facility] pH, urine 6.5 [facility] Comment: Interpretive Data U rine pH is affected by diet, medications, systemic acid-base disturbances, and renal tubular function. pH may affect urinary stone formation. For example, urine pH below 6.0 may help reduce the tendency for calcium phosphate stones and pH greater than 6.0 may reduce the tendency for uric acid stone formation. Source: [facility] [employer] Current Interpretive Data was last revised on 2017 Protein, ur ql Negative Negative [facility] Glucose, ur ql Negative Negative [facility] Ketones, ur Negative Negative [facility] Bilirubin, ur Negative Negative [facility] Blood, ur Negative Negative [facility] Urobilinogen, ur <2.0 <2.0 mg/dL [facility] Nitrite, ur Negative Negative [facility] Leukocyte esterase, ur 1+(A) Negative [facility] UA reflex comment Reflex to microscopic UA will be performed. [facility] Urine, clean voided 10/16/2024 12:11 PM TELECOM SPECIALIST 10/16/2024 12:48 PM TELECOM SPECIALIST Julieta Gamino NP LAB MICROBIOLOGY - GE NERAL ORDERABLES Final Result Performing Organization Address City/[facility]/ZIP Co de Phone Number [facility] Department [place] [address] * CBC with auto differential (10/16/2024 12:11 PM TELECOM SPECIALIST) WBC 5.8 3.8 - 9.9 K/cumm Hgb 13.3 11.9 - 15.5 g/dL [facility] Hct 40.2 35.6 - 45.5 % [facility] Plt 284 150 - 400 K/cumm [facility] MPV 10.4 9.1 - 12.3 fL [facility] RBC 4.38 3.90 - 5.20 M/cumm [facility] MCV 91.8 81.3 - 96.4 fL [facility] MCH 30.4 27.1 - 33.3 pg [facility] MCHC 33.1 32.3 - 35.7 g/dL [facility] RDW CV 13.8 11.1 - 14.9 % [facility] RDW SD 47.0 35.7 - 48.1 fL [facility] NRBC abs 0.00 0.00 - 0.01 K/cumm [facility] Blood 10/16/2024 12:1 1 PM TELECOM SPECIALIST 10/16/2024 12:53 PM TELECOM SPECIALIST Julieta Gamino NP LAB BLOOD ORDERABLES Final Result Performing Organization Address [facility]/ZIP Co de Phone Number [facility] [place] [address] * (ABNORMAL) Urinalysis, microscopic only (10/16/2024 12:11 PM TELECOM SPECIALIST) Pathologist [facility] WBC, ur 6-10(A) 0 - 5 /HPF RBC, ur 0-2 0 - 2 /HPF [facility] Epithelial cells, renal, ur 1-5(A) 0 - 0 /HPF [facility] Mucous, ur Present(A) [facility] Culture Reflex Comment Reflex conditions for urine culture (WBC >10) not met. [facility] Urine, clean voided 10/16/2024 12:11 PM TELECOM SPECIALIST 10/16/2024 12:48 PM TELECOM SPECIALIST Julieta Gamino NP LAB URINE ORDERABLES Final Result Performing Organization Address [facility] de Phone Number [facility] [place] [address] * Protime-INR (10/16/2024 12:11 PM TELECOM SPECIALIST) Pathologist [facility] PT 11.3 9.7 - 13.0 sec INR 1.05 0.90 - 1.20 [facility] Comment: Interpretive data Oral anticoagulant therapeutic ranges: Venous thromboembolism prophylaxis or treatment: 2.0-3.0 CARDIOLOGY Standard range: 2.0-3.0 High-intensity range: 2.5-3.5 Refer to indication-specific guidelines for appropriate target ranges for prosthetic heart valve replacement. Current interpretive data was last revised on 2019. Blood 10/16/2024 12:1 1 PM TELECOM SPECIALIST 10/16/2024 12:11 PM TELECOM SPECIALIST Julieta Gamino NP LAB BLOOD ORDERABLES Final Result Performing Organization Address [facility] Co de Phone Number [facility] [place] [address] * (ABNORMAL) Comprehensive metabolic panel (10/16/2024 12:11 PM TELECOM SPECIALIST) Pathologist [facility] Sodium 141 135 - 145 mmol/L Potassium, pl 4.6 3.3 - 4.9 mmol/L [facility] Chloride 100 97 - 110 mmol/L [facility] CO2 29 22 - 32 mmol/L [facility] Anion gap 12 2 - 15 mmol/L [facility] BUN 18 6 - 25 mg/dL [facility] Creatinine 0.93 0.60 - 1.10 mg/dL [facility] Glucose 93 70 - 199 mg/dL [facility] Comment: Interpretive Data Fasting glucose >/= 126 [...] 2022. Calcium 10.6(H) 8.5 - 10.3 mg/dL [facility] Bilirubin, total 0.6 0.1 - 1.2 mg/dL [facility] Protein, pl 7.9 6.5 - 8.5 g/dL [facility] Albumin 4.8 3.5 - 5.0 g/dL [facility] Alk phos 98 40 - 130 Units/L [facility] ALT 23 7 - 45 Units/L [facility] AST 28 10 - 45 Units/L [facility] Blood 10/16/2024 12:1 1 PM TELECOM SPECIALIST 10/16/2024 12:53 PM TELECOM SPECIALIST us Julieta Gamino NP LAB BLOOD ORDERABLES Final Result [facility] Department [place] [address] * ECG 12 lead (10/16/2024 11:26 AM TELECOM SPECIALIST) Pathologist [facility] Ventricular Rate EKG/Min 68 BPM [facility] Atrial Rate 68 BPM [facility] NV-Interval (MSEC) 168 ms [facility] QRS-Interval (MSEC) 76 ms [facility] QT-Interval (MSEC) 398 ms [facility] QTc 423 ms [facility] P [place] 64 degrees [facility] R [place] 43 degrees [facility] T [place] 47 degrees [facility] Diagnosis Normal sinus rhythm Normal ECG When compared with ECG of 11-MAY-2024 08:19, no significant change Confirmed by MARV GARCIA M.D ([id number]) on 10/16/2024 1:39:42 PM [facility] 10/16/2024 11:2 6 AM TELECOM SPECIALIST 10/16/2024 1:39 PM TELECOM SPECIALIST us Juileta Gamino NP ECG ORDERABLES Final Result [facility] * COLONOSCOPY (11/12/2020 12:00 PM TELECOM SPECIALIST) Anatomical Region Laterality Modality Other Narrative Procedure Note Paz Mejias MD - 11/12/2020 12:00 PM CST [facility] Patient Name: Stacy Herron Procedure Date: 11/12/2020 12:00 PM Date of : 1945 Admit Type: Outpatient Age: 75 Gender: Female Attending MD: Brandt Gunter Room: [facility] ENDOSCOPY ROOM 3 Note Status: Finalized [...] The scope was passed under direct vision.The [id number] endoscope was introduced through the anus and advanced to the terminal ileum. The colonoscopy was performed without difficulty. The patient tolerated the procedure well. The qualityof the bowel preparation was evaluated using the BBPS ([place] Bowel Preparation Scale) with scores of:Right Colon [...] On: 11/12/2020 12:00 PM Recognized by the [place] [employer] G[employer]intestinal [employer] for promoting quality in endoscopy Paz Mejias MD ENDOSCOPY PROCEDUR ES Final Result from Last 3 Months or Most Recently Relevant to Health Maintenance Insurance MEDICARE [facility] SENIOR SUPPLEMENT MEDICARE [employer] SENIOR SUPPLEMENT MEDICARE [employer] SENIOR SUPPLEMENT Advance Directives For more information, please contact: [phone] Documents on File Type Date Recorded Patient Draw Fire Operator Expl anation ADVANCE DIRECTIVE 10/23/2024 2:41 AM POWER OF CREDENTIALING SPECIALIST-MEDICAL ADVANCE DIRECTIVE 10/23/2024 2:41 AM LIVING WILL [...] 10:37 AM 11/12/2020 5:37 PM Care Teams Archivist Nonprofit Foundation Relationship Specialty Start Date End Date Praveena Mcfarland MD [address] [place] [address] PCP - General Internal Medicine 10/11/19 Paul Lopez MD [address] [address] 10/11/19 Paz Mejias MD [address] [facility] [place] [address] Lead Systems Developer Gastroenterology 09/07/22 Hayden Huffman III, MD [address] [place] [address] Compression Molding Machine Setter Cardiology 12/14/22 Herson Elam MD [address] [place] [address] [place] [address] Surgeon Orthopedic Surgery 11/22/23 Gee Carrasco MD [address] [place] [address] [place] [address] Referring Physician Cardiology 02/29/24 Irasema Valdez MD [address] [place] [address] [place] [address] Compression Molding Machine Setter Cardiology 05/15/24 Cristhian Rodgers MD [address] [facility] [id number] [place] [address] Cardiothoracic Surgery 10/20/24 Bill Tovar MD [address] [facility] [phone] [place] [address] Surgeon Colon and Rectal Surgery 11/15/24
== END 2024-11-27 12:53 | disposition home or self-care (01) ==
PROVIDERS: PCP Internal Medicine; Visit Provider Internal Medicine
DX: Z12.31 Encounter for screening mammogram for malignant neoplasm of breast (principal); Z78.0 Asymptomatic menopausal state; M81.0 Age-related osteoporosis without current pathological fracture; M85.89 Other specified disorders of bone density and structure, multiple sites
CPT/HCPCS: 77063; 77067; 77080

== ENCOUNTER 2024-12-03 11:17 | Outpatient (CLI) | payer MEDICARE, SELFPAY ==
[2024-12-03 11:37] LABS: Basophils Absolute Auto 0.02 K/mm3 (0.00-0.10); Basophils Percent Auto 0.4 % (0.0-1.0); Eosinophils Absolute Auto 0.17 K/mm3 (0.02-0.50); Immature Granulocyte Absolute 0.01 K/mm3 (0.00-0.00); Immature Granulocyte Percent A 0.2 % (0.0-0.0); Lymphocytes Percent Auto 17.8 % (18.0-42.0); Mean Corpuscular HGB Conc 31.6 g/dL (32-36); Mean Corpuscular Hemoglobin 29.2 pg (27.0-31.0); Mean Corpuscular Volume 92.5 fL (78.0-102.0); Mean Platelet Volume 9.8 fl (9.2-11.8); Monocytes Absolute Auto 0.45 K/mm3 (0.10-0.90); Neutrophils Absolute Auto 3.96 K/mm3 (1.70-7.20); Neutrophils Percent Auto 70.6 % (50.0-70.0); Platelet Count Result 297 K/mm3 (150-420); Red Blood Count 4.11 M/mm3 (4.20-5.40); Red Cell Distribution Width 12.6 % (11.6-14.4); White Blood Count 5.6 K/mm3 (4.8-10.8)
[2024-12-03 12:25] LABS: Alanine Aminotransferase 24 U/L (14-59); Alkaline Phosphatase 144 U/L (46-116); Amylase 57 U/L (25-115); Anion Gap 8 mmol/L (4-12); Aspartate Amino Transferase 19 U/L (15-37); Bilirubin,Total 0.5 mg/dL (0.00-1.00); Blood Urea Nitrogen 17 mg/dL (7-18); Calcium 9.8 mg/dL (8.5-10.1); Carbon Dioxide 29 mmol/L (21-32); Chloride 104 mmol/L (98-108); Estimated Glomerular Filt Rate 53; Glucose 98 mg/dL (70-99); Lipase 45 U/L (16-77); Osmolality Calculated 293 mOsm/kg (285-295); Potassium 4.3 mmol/L (3.5-5.1); Sodium 141 mmol/L (136-145); Total Protein 7.8 g/dL (6.4-8.2)
--- OUTSIDE RECORDS SUMMARY | 2024-12-03 13:56 | XMS_ITS | Encounter Summary ---
Author Organization [facility] Address [address] [place] [address] Phone Care Team Providers Care Nutrition Coordinator Name Role Phone Praveena Mcfarland MD Primary Care Provider Paul Lopez MD Unavailable [phone] Nereyda Kemp MD Unavailable Paz Mejias MD Unavailable + Nathanael VALERIO MD, Hayden Singh Unavailable Herson Elam MD Unavailable [phone] Gee Carrasco MD Unavailable [phone] Darryn Valdez MD Unavailable [phone] Cristhian Gonzalez MD Unavailable Bill Tovar MD Unavailable Encounter Details Date Type Department Care Team (Late st Contact Info) Description 11/12/2024 Results Follow-Up [facility] Cardiology [address] [facility] 8th [place] [address] [place] [address] Darryn Valdez MD [address] [address] Social History Tobacco Use Types Packs/Day Years [...] on file 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:54 AM IMMUNOCHEMIST Gender Identity Female 02/06/2020 12:07 PM CDT Sexual Orientation Not on file documented as of this encounter Plan of Treatment Not on file documented as of this encounter Visit Diagnoses Not on filedocumented in this encounter Care Teams Nutrition Coordinator Relationship Specialty Start Date End Date Praveena Mcfarland MD [address] [place] [address] PCP - General Internal Medicine 10/11/19 Paul Lopez MD [address] [place] [address] 10/11/19 Nereyda Kemp MD [address] [facility] [phone] [place] [address] Surgeon Colon and Rectal Surgery 09/07/2211/14 Paz Mejias MD [address] [place] [address] Veneer Puller Gastroenterology 09/07/22 Hayden Huffman III, MD [address] [place] [address] Operational Trainer Cardiology 12/14/22 Herson Elam MD [address] [place] [address] [address] [place] [address] Surgeon Orthopedic Surgery 11/22/23 Gee Carrasco MD [address] [place] [address] [address] [place] [address] Referring Physician Cardiology 02/29/24 Darryn Valdez MD [address] [place] [address] [address] [place] [address] Operational Trainer Cardiology 05/15/24 Cristhian Gonzalez MD [address] [facility] [phone] [place] [address] Cardiothoracic Surgery 10/20/24 Bill Tovar MD [address] [facility] [phone] [place] [address] Surgeon Colon and Rectal Surgery 11/15/24 documented as of this encounter
--- OUTSIDE RECORDS SUMMARY | 2024-12-03 13:56 | XMS_ITS | Clinical Summary ---
Author Organization [facility] Address [address] [place] [address] Care Team Providers Care Elementary Esl Teacher Name Role Phone Praveena Mcfarland MD Primary Care Provider [phone] Nereyda Kemp MD Unavailable [phone] Cristhian Gonzalez MD Unavailable [phone] Vinnie Barr MD Unavailable [phone] Allergies Active Allergy Reactions Criticality Noted Date [...] Type Department Care Team Description 09/27/2024 [facility] [address] [place] [address] Vinnie Barr MD Called To [...] Documents on File Type Date Recorded Patient Land Checker Expl anation Advance Directives and Living Will 07/06/2019 10:49 AM Living Will Power of Medical Parasitologist 07/06/2019 10:48 AM Monika NarayanKbebnflry-VOU-czwvx; Eb Narayan-1st alternate [facility]-other Healthcare Agents on File Name Relationship Healthcare Agent Relationship Communication Gianluca R ([facility]) Kaushikewsterling Healthcare Agent Health Care A [facility] Eb Narayan Other First Altern ate Health Care Agent Care Teams Elementary Esl Teacher Relationship Specialty Start Date End Date Praveena Mcfarland MD [address] [place] [address] PCP - General INTERNAL MEDICINE 06/22/19 Nereyda Kemp MD COLON & RECTAL [address] [facility] [address] [place] [address] COLON/RECTAL SURGERY 12/15/22 Cristhian Gonzalez MD [address] [place] [address] Thoracic Surgery (Cardiothoracic Vascular Surgery) 02/27/24 Vinnie Barr MD [address] [place] [address] Consulting Physician CARDIOVASCULAR DISEASE 03/21/24
--- OUTSIDE RECORDS SUMMARY | 2024-12-03 13:56 | XMS_ITS | Continuity of Care Document ---
Author Organization [facility] Address [address] [place] [address] Phone Care Team Providers Care Railroad Watchman Name Role Phone Eb Ramos PA-C Unavailable [...] Copied on Encounter Office/outpa tient visit,est, mod [facility], [address] [place] [address], [id number], [phone] SOA PA left ring finger (chief complaint) Trigger finger, left ring finger 7 Rachel Parson. [address] [place], [place], [id number] , [place]. tel: [phone] [facility], [address] [place] [address], [id number], [phone] [facility] 7 Katie Villavicencio. [address] [place] [address], [id number] , . tel: [phone] Referring Provider: Gibson Pineda, [address] [place] [address], [id number] . tel:[phone] [facility], [address] [place] [address], [id number], tel:[phone] [facility] Mar-1 6-201 7 Wilson Maye. [address] [place] [address], [id number] , . tel: [phone] Referring Provider: Gibson Pineda, [address] [place] [address], [id number] . tel:[phone] [facility], [address] [place] [address], [id number], tel:[phone] [facility] Mar-1 4-201 7 Katie Maye. [address] [place] [address], [id number] , . tel: [phone] Referring Provider: Gibson Pineda, [address] [place] [address], [id number] . tel:[phone] [facility], [address] [place] [address], [id number], tel:[phone] [facility] Trigger finger, left ring finger Mar-0 1-201 7 Wilson Maye. [address] [place] [address], [id number] , . tel: [phone] Referring Provider: Gibson Pineda, [address] [place] [address], [id number] . tel:[phone] [facility], [address] [place] [address], [id number], tel:[phone] [facility] left ring finger (chief complaint) Trigger finger, left ring finger Feb-2 3-201 7 Rachel Parson. [address] [place] [address], [id number] , [place]. tel: [phone] [facility], [address] [place] [address], [id number], tel:[phone] [facility] No Information 7 Bacilio Arreaga. [address] [place] [address], [id number] , . tel:[phone] Office/outpa tient visit,est, [facility], [address] [place] [address], [id number], tel:[phone] [facility] Finger (chief complaint) left ring finger (chief complaint) Pain in left finger(s)Trigger finger, left ring fingerTrigger finger, left ring fingerTrigger finger, left ring finger 7 Bacilio Arreaga. [address] [place] [address], [id number] , . tel:[phone] Referring Provider: Gibson Pineda, [address] [place] [address], [id number] . tel:[phone] Office/outpa tient visit,est, [facility], [address] [place] [address], [id number], tel:[phone] SOA PA right knee pain (chief complaint) Pain in right kneePrimary osteoarthritis of right knee 6 Deny Bains. [address] [place] [address], [id number] , . tel:[phone] Referring Provider: Herson Madden, [address] [place] [address], [id number] . tel:[phone] [facility], [address] [place] [address], [id number], tel:[phone] [facility] No Information 6 Deny Bains. [address] [place] [address], [id number] , . tel:[phone] Referring Provider: Herson Leung, [address] [place] [address], [id number] . tel:[phone] Office/outpa tient visit,est, [facility], [address] [place] [address], [id number], [place] tel:[phone] [facility] knee (chief complaint) Pain In Lower Leg (Knee) / Patellofemoral SyndromeArthritis Knee Localized Primary (osteoarthritis) Sep- 5 Tima Elizondo. [address] [place] [address], [id number] , . tel:[phone] Referring Provider: Mikhail Akhtar, [address] [place] [address], [id number] . tel:[phone] Office/outpa tient visit,est, [facility], [address] [place] [address], [id number], tel:[phone] [facility] Knee (chief complaint) Pain In Lower Leg (Knee) / Patellofemoral SyndromeOsteopeni a, Disorder Bone/Cartilage 4 Tima Elizondo. [address] [place] [address], [id number] , [place]. tel:[phone] Referring Provider: Mikhail Akhtar, [address] [place] [address], [id number] . tel:[phone] Office/outpa tient visit,est, mod [facility], [address] [place] [address], [id number], tel:[phone] [facility] left hip pain (chief complaint) Pubic bone painOsteopenia, Disorder Bone/Cartilage 4 Tima Elizondo. [address] [place] [address], [id number] , [place]. tel: [phone] [facility], [address] [place] [address], [id number], [place] tel:[phone] [facility] No Information 2 Tina Meza. [address] [place], [place], [id number] , [place]. tel: [phone] [facility], [address] [place] [address], [id number], tel:[phone] [facility] No Information 0201 1 Bacilio Arreaga. [address] [place], [place], [id number] , [place]. tel:[phone] Office/outpa tient visit,new, [facility], [address] [place], [place], [id number], tel:[phone] [facility] No Information 1 Iraida Cotto. [address] [place], [place], [id number] , . tel: [phone] Family History Family Member Type Diagnosis Age At Onset Problem (finding) Family history of Cance r, unknown Payers Payer name Insurance type Covered green party ID Authoriza tiserena(s) [place] [id number] [place] [id number] Social History Type Description Quantity Date [...] Order Fi nger(s) Xray Min 2 Views (79210), Ordered on: Ordered Future Order: Radiology Order Kn ee Xray Both Knees Standing AP ([id number]), Ordered on: Ordered Future Order: Radiology Order Kn ee Xray 1 Or 2 Views ([id number]), Ordered on: Ordered Future Order: Radiology Order Kn ee Xray Complete 4 Or More Views ([id number]), Ordered on: Ordered Future Order: Radiology Order Pe lvis Xray 1 Or 2 Views (Includes Judet) ([id number]), Ordered on: Ordered History Of Present Illness [...]
--- OUTSIDE RECORDS SUMMARY | 2024-12-03 13:56 | XMS_ITS | Encounter Summary ---
Author Organization [facility] Address [address] [place] [address] Care Team Providers Care Malware Analyst Name Role Phone Praveena Mcfarland MD Primary Care Provider [phone] Hayden Huffman MD Unavailable Unavailabl e Nereyda Kemp MD Unavailable [phone] Cristhian Gonzalez MD Unavailable [phone] Vinnie Barr MD Unavailable [phone] Encounter Details Date Type Department Care Team (Late st Contact Info) Description 10/12/2022 Abstract [facility] [address] [place] [address] Hayden Huffman MD Social History Tobacco Use [...] Coronavirus/COVID-19? No / Unsure 10/12/2022 10:01 AM FORESTRY SUPERVISOR documented as of this encounter Plan of Treatment Not on file documented as of this encounter Visit Diagnoses Not on filedocumented in this encounter Care Teams Malware Analyst Relationship Specialty Start Date End Date Praveena Mcfarland MD [address] [place] [address] PCP - General INTERNAL MEDICINE 06/22/19 Hayden Huffman MD [address] [place] [address] [place] Business Division Chair CARDIOVASCULAR DISEASE 06/27/19 03/20/24 Nereyda Kemp MD COLON & RECTAL [address] [place] [address] [place] [address] COLON/RECTAL SURGERY 12/15/22 Cristhian Gonzalez MD [address] [place] [address] Thoracic Surgery (Cardiothoracic Vascular Surgery) 02/27/24 Vinnie Barr MD [address] [place] [address] Consulting Physician CARDIOVASCULAR DISEASE 03/21/24 documented as of this encounter
--- OUTSIDE RECORDS SUMMARY | 2024-12-03 13:56 | XMS_ITS | Encounter Summary ---
Author Organization [facility] Address [address] [place] [address] Phone Care Team Providers Care Display Artist Name Role Phone Praveena Mcfarland MD Primary Care Provider [phone] Paul Lopez MD Unavailable Paz Mejias MD Unavailable + Nathanael VALERIO MD, Hayden Singh Unavailable Herson Elam MD Unavailable Gee Carrasco MD Unavailable [phone] Darryn Valdez MD Unavailable [phone] Cristhian Gonzalez MD Unavailable Bill Tovar MD Unavailable [phone] Encounter Details Date Type Department Care Team (Late st Contact Info) Description 11/22/2024 Telephone [facility] Cardiology [address] [facility] 8th [place] [address] [place] [address] Kady Baires Social History Tobacco [...] on file 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:54 AM COMPUTER INFORMATION SCIENCE PROFESSOR Gender Identity Female 02/06/2020 12:07 PM CDT Sexual Orientation Not on file documented as of this encounter Miscellaneous Notes * Telephone Encounter - Ariana Isaac RN - 11/23/2024 4:32 PM CST faxed UTER INFORMATION SCIENCE PROFESSOR * Telephone Encounter - Kady Baires - 11/22/2024 2:52 PM CST VIRAL OMER WITH [facility] PT'S MOST RECENT OFFICE NOTE, ANY TESTING/LAB RESULTS,SURGICAL REPORT, DISCHARGE SUMMARY AND DEMOGRAPHICS/INSURANCE INFORMATION FAX [phone] UTER INFORMATION SCIENCE PROFESSOR documented in this encounter Plan of Treatment Not on file documented as of this encounter Visit Diagnoses Not on filedocumented in this encounter Care Teams Display Artist Relationship Specialty Start Date End Date Praveena Mcfarland MD [address] [place] [address] PCP - General Internal Medicine 10/11/19 Paul Lopez MD [address] [place] [address] 10/11/19 Paz Mejias MD [address] [place] [address] Natural Gas Plant Technician Gastroenterology 09/07/22 Hayden Huffman III, MD [address] [place] [address] Physician Scientist Cardiology 12/14/22 Herson Elam MD [address] [place] [address] [place] [address] Surgeon Orthopedic Surgery 11/22/23 Gee Carrasco MD [address] [place] [address] [place] [address] Referring Physician Cardiology 02/29/24 Darryn Valdez MD [address] [place] [address] [place] [address] Physician Scientist Cardiology 05/15/24 Cristhian Gonzalez MD [address] [facility] [phone] [place] [address] Cardiothoracic Surgery 10/20/24 Bill Tovar MD [address] [facility] [phone] [place] [address] Surgeon Colon and Rectal Surgery 11/15/24 documented as of this encounter
--- OUTSIDE RECORDS SUMMARY | 2024-12-03 13:56 | XMS_ITS | Encounter Summary ---
Author Organization [facility] Address [address] [place] [address] Phone Care Team Providers Care Rap Artist Name Role Phone Praveena Mcfarland MD Primary Care Provider Paul Lopez MD Unavailable [phone] Paz Mejias MD Unavailable + Nathanael VALERIO MD, Hayden Singh Unavailable [phone] Herson Elam MD Unavailable Gee Carrasco MD Unavailable [phone] Darryn Valdez MD Unavailable [phone] Cristhian Gonzalez MD Unavailable [phone] Bill Tovar MD Unavailable Encounter Details Date Type Department Care Team (Late st Contact Info) Description 11/27/2024 Results Follow-Up [facility] Cardiology [address] 8th [place] [address] [place] [address] Darryn Valdez MD [address] [facility] [address] [place] [address] Social History Tobacco Use Types Packs/Day Years [...] on file 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:54 AM PATIENT REGISTRAR Gender Identity Female 02/06/2020 12:07 PM CDT Sexual Orientation Not on file documented as of this encounter Plan of Treatment Not on file documented as of this encounter Visit Diagnoses Not on filedocumented in this encounter Care Teams Rap Artist Relationship Specialty Start Date End Date Praveena Mcfarland MD [address] [place] [address] PCP - General Internal Medicine 10/11/19 Paul Lopez MD [address] [place] [address] 10/11/19 Paz Mejias MD [address] [place] [address] Career Development Director Gastroenterology 09/07/22 Hayden Huffman III, MD [address] [place] [address] Engine Repairer Service Cardiology 12/14/22 Herson Elam MD [address] [place] [address] [address] [place] [address] Surgeon Orthopedic Surgery 11/22/23 Gee Carrasco MD [address] [place] [address] [address] [place] [address] Referring Physician Cardiology 02/29/24 Darryn Valdez MD [address] [place] [address] [address] [place] [address] Engine Repairer Service Cardiology 05/15/24 Cristhian Gonzalez MD [address] [phone] [place] [address] Cardiothoracic Surgery 10/20/24 Bill Tovar MD [address] [phone] [place] [address] Surgeon Colon and Rectal Surgery 11/15/24 documented as of this encounter
--- OUTSIDE RECORDS SUMMARY | 2024-12-03 13:56 | XMS_ITS | Encounter Summary ---
Author Organization [facility] Address [address] [place] [address] Phone Care Team Providers Care Supervisor [employer] Name Role Phone Praveena Mcfarland MD Primary Care Provider [phone] Paul Lopez MD Unavailable [phone] Nereyda Kemp MD Unavailable Paz Mejias MD Unavailable + Nathanael VALERIO MD, Hayden Singh Unavailable [phone] Herson Elam MD Unavailable [phone] Gee Carrasco MD Unavailable [phone] Darryn Valdez MD Unavailable [phone] Cristhian Gonzalez MD Unavailable [phone] Bill Tovar MD Unavailable [phone] Encounter Details Date Type Department Care Team (Late st Contact Info) Description 11/12/2024 Results Follow-Up [facility] Cardiology [address] 8th [place] [address] [place] [address] Shawanda Maurice NP [address] [place] [address] Social History Tobacco Use Types Packs/Day Years [...] on file 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:54 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 Gender Identity Female 02/06/2020 12:07 PM CDT Sexual Orientation Not on file documented as of this encounter Plan of Treatment Not on file documented as of this encounter Visit Diagnoses Not on filedocumented in this encounter Care Teams Supervisor [employer] Relationship Specialty Start Date End Date Praveena Mcfarland MD [address] [place] [address] PCP - General Internal Medicine 10/11/19 Paul Lopez MD [address] [place] [address] 10/11/19 Nereyda Kemp MD [address] [facility] [phone] [place] [address] Surgeon Colon and Rectal Surgery 09/07/2211/14 Paz Mejias MD [address] [place] [address] Paper Products Printer Gastroenterology 09/07/22 Hayden Huffman III, MD [address] [place] [address] Fire Supervisor Cardiology 12/14/22 Herson Elam MD [address] [place] [address] [address] [place] [address] Surgeon Orthopedic Surgery 11/22/23 Gee Carrasco MD [address] [place] [address] [address] [place] [address] Referring Physician Cardiology 02/29/24 Darryn Valdez MD [address] [place] [address] [address] [place] [address] Fire Supervisor Cardiology 05/15/24 Cristhian Gonzalez MD [address] [facility] [id number] [place] [address] Cardiothoracic Surgery 10/20/24 Bill Tovar MD [address] [facility] [phone] [place] [address] Surgeon Colon and Rectal Surgery 11/15/24 documented as of this encounter
--- OUTSIDE RECORDS SUMMARY | 2024-12-03 13:57 | XMS_ITS | Data Portability ---
Author Organization [place] [employer] [facility] [employer], Main Office Address [address] [place] [address] Care Team Providers Care Rn Radiation Name Role Phone RYLEE CABRERA Primary Care Provider [phone] RYLEE CABRERA Referring Provider Assessment No assessment recorded. Plan of Treatment Reminders Order Date Submit Date Provider Last Modified By Organization Details Last Modified Time Details Appointments None recorded. Lab None recorded. Referral physical therapist referral - US, HEAT-MODALI TIES, STRENGTHEN RTC, HEP 2022 023 [email or web address] [facility], [address] [place], [address], 08:31:38 Procedures None recorded. Surgeries None recorded. [...] more view No observ ation record ed. [id number] [place] [address], [place], [address], 11/18/2022 01:47:39 Result Notes None recorded. Problems Name Problem SNOMED Code Status Onset Date Resolution Date Notes Provider Name and Address Organization Details Recorded Time Pain of right shoulder joint 2336084692603 9100 Active 2022 MILDRED Goncalves, [place] [employer] [facility] [employer] [facility] 3 11:40:35 Impingement syndrome of right shoulder region 9685647575945 02 Active 2022 Cachorrojil Dixon, [place], [place] - [facility] 3 11:40:51 Problem Notes None recorded. Procedures Surgical History None recorded. Imaging Results Imaging Date Name Status LastModified by Organiz ation Details LastModified Time 09/28/2022 XR, shoulder, 2 or more view completed [id number] [id number] [place] [address], [place], [address], 11/18/2022 01:47:39 Procedure Notes None recorded. Medical Equipment None Reported. Allergies Allergen ID Allergen Name Allergen Category Reaction Reaction Severity Criticality Documentation Date Start Date Code Code System Note Provider Name and Address Organization Details Recorded Time 12137 morphine medicatio n Not available Not available Not available 11/18/2022 7052 RxNorm Not Available [facility] 01:47:37 Medications Name Sig Start Date Stop [...] injection administe red by the provider active [facility]: 0003- 0494- 20 Not Available Not Available [...] DateTime 09/28/2022 25.5 kg/m2 154.94 cm 8 41207.97 g Not Available [employer] 11/18/2022 01:46:45 Date Recorded Body height Body mass index (BMI) Body weight Provider Name and Address Organization Details Last Updated DateTime 12/14/2022 154.94 cm 26.1 kg/m2 91492.75 g MILDRED Goncalves [employer] 12/14/2022 11:40:01 Date Recorded Body height Body mass index (BMI) Body weight Provider Name and Address Organization Details Last Updated DateTime 2023 154.94 cm 26.1 kg/m2 26927.75 g DIANE Cortes [employer] 2023 11:18:22 Social History Question Answer Notes LastModified by Organizat ion Details LastModified Time Tobacco Smoking Status Unknown If Ever Smoked Not Available [facility] 11/18/2022 01:46:33 What Is Your Level Of Alcohol Consumption? None [id number] Information not available 11/18/2022 What Was The Date Of Your Most Recent Tobacco Screening? 09/28/2022 [id number] Information not available 11/18/2022 Sex: Unknown Functional Status None recorded. Mental Status None recorded. Family History Relationship Description Onset Age of this Age Resolved Age Notes LastModified by Organization Details LastModified Time Father Family history of malignant neoplasm [id number] Not available 11/18/2022 01:46:42 Medical History Condition Response ARTHRITIS Y Gynecological HistoryNo gynecological history recorded. Obstetrics History GPAL:G 0 P 0 0 0 0 Past Encounters Encounter ID Performer Location Encounter Start Date Encounter Closed Date Diagnosis/Indication Diagnosis SNOMED-CT Code Diagnosis ICD10 Code Diagnosis Note [id number] [facility] [place] [address] [place] [address] 09/28/2022 00:00:00 09/28/2022 12:55:32 [id number] Hayden Maya MD [facility] [place] [address] [place] [address] 12/14/2022 11:38:04 12/14/2022 12:13:42 Pain of right shoulder joint 7426551391 0797141 M25.511 Impingemen t syndrome of right shoulder region 6520025170 37264 M75.41 patient will work 1 more time with the therapist 2 to 3 times a week for the next 3 weeks ultrasound and strengthen ing and other modalities home exercise program I will see her back in a month if she is having recurrence of the shoulder pain will get an MRI scan to rule out a cuff tear [id number] Hayden Maya MD [facility] [place] [address] [place] [address] 2023 11:15:39 2023 11:40:22 Pain of right shoulder joint 5234245030 6769949 M25.511 Impingemen t syndrome of right shoulder region 2453045729 36818 M75.41 patient will continue with her home [...] Name 12/14/2022 1 [place] Nguyen Herron [id number] Teresa Herron 12/14/2022 2 [employer] (MEDICARE SUPPLEMENT) Nguyen Herron [id number] Teresa Herron 2023 1 [place] Nguyen Herron [id number] Teresa Herron 2023 2 [employer] (MEDICARE SUPPLEMENT) Nguyen Herron [id number] Teresa Herron Notes Date Note Type Note [...] Hayden Maya MD [address], [place], [address], [employer] 12/14/2022 13:11:57 2023 text/html patient has some [...] Hayden Maya MD [address], [place], [address], [employer] 2023 12:52:24 OBGyn Episode No OBEpisode recorded.
--- OUTSIDE RECORDS SUMMARY | 2024-12-03 13:57 | XMS_ITS | Encounter Summary ---
Author Organization [facility] Address [address] [place] [address] Care Team Providers Care Regional Account Director Name Role Phone Praveena Mcfarland MD Primary Care Provider [phone] Paul Lopez MD Unavailable [phone] Nereyda Kemp MD Unavailable [phone] Paz Mejias MD Unavailable + Nathanael VALERIO MD, Hayden Singh Unavailable Herson Elam MD Unavailable [phone] Gee Carrasco MD Unavailable [phone] Darryn Valdez MD Unavailable [phone] Cristhian Gonzalez MD Unavailable [phone] Bill Tovar MD Unavailable [phone] Encounter Details Date Type Department Care Team (Late st Contact Info) Description 04/04/2024 Telephone [facility] [address] [place] [id number] Charu Rai RN Social History Tobacco Use [...] on file 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:54 AM ECD Gender Identity Female 02/06/2020 12:07 PM CDT Sexual Orientation Not on file documented as of this encounter Plan of Treatment Not on file documented as of this encounter Visit Diagnoses Not on filedocumented in this encounter Care Teams Regional Account Director Relationship Specialty Start Date End Date Praveena Mcfarland MD [address] [place] [address] PCP - General Internal Medicine 10/11/19 Paul Lopez MD [address] [place] [address] 10/11/19 Nereyda Kemp MD [address] [facility] [phone] [place] [address] Surgeon Colon and Rectal Surgery 09/07/2211/14 Paz Mejias MD [address] [place] [address] Rehabilitation Psychologist Gastroenterology 09/07/22 Hayden Huffman III, MD [address] [place] [address] Sales Representative [employer] Cardiology 12/14/22 Herson Elam MD [address] [place] [address] [place] [address] Surgeon Orthopedic Surgery 11/22/23 Gee Carrasco MD [address] [place] [address] [place] [address] Referring Physician Cardiology 02/29/24 Darryn Valdez MD [address] [place] [address] [place] [address] Sales Representative [employer] Cardiology 05/15/24 Cristhian Gonzalez MD [address] [facility] [phone] [place] [address] Cardiothoracic Surgery 10/20/24 Bill Tovar MD [address] [facility] [phone] [place] [address] Surgeon Colon and Rectal Surgery 11/15/24 documented as of this encounter
--- OUTSIDE RECORDS SUMMARY | 2024-12-03 13:57 | XMS_ITS | Referral Summary ---
Author Organization [facility] Address [address] [place] [address] Care Team Providers Care Plating Equipment Tender Name Role Phone Praveena Mcfarland MD Primary Care Provider Paul Lopez MD Unavailable [phone] Paz Mejias MD Unavailable + Nathanael VALERIO MD, Hayden Singh Unavailable [phone] Herson Elam MD Unavailable Gee Carrasco MD Unavailable [phone] Irasema Valdez MD Unavailable [phone] Cristhian Rodgers MD Unavailable [phone] Bill Tovar MD Unavailable Encounters Date Type Department Care Team Description 11/27/2024 Results Follow-Up [facility] Cardiology [address] [facility] 8th [place] [address] [place] [address] Irasema Valdez MD 11/26/2024 3:40 PM CDT Lab [facility] Endocrinology Metabolism and Lipid [address] [facility] 8th [place] [address] [place] [address] S/P tricuspid valve replacement 11/26/2024 Orders Only [facility] Cardiology [address] [facility] Medical Office Building [address] [place] [address] Irasema Valdez MD 11/26/[address] [place] [address] [place] [address] Natalie Cruz RN 11/26/2024 2:30 PM CDT Office Visit [address] [place] [address] [place] [address] S/P tricuspid valve replacement (Primary Dx); Mixed hyperlipidemia; Chronic diastolic heart failure (HCC) 11/22/[address] [place] [address] Kady Baires 11/22/[address] [place] [address] [place] [address] Kady Baires 11/21/2024 Orders Only [facility] CARDIOLOGY Scanning, Provider 11/15/2024 3:00 PM PRECISION THREAD GRINDER OPERATOR Office Visit [facility] Surgery [address] [facility] Medical Office Building [address] [place] [phone] Bill Tovar MD Incontinence of feces, unspecified fecal incontinence type (Primary Dx) 11/14/[address] [place] [address] [place] [address] Irasema Valdez MD TAVR follow up 11/12/2024 Results Follow-Up [address] [place] [address] Irasema Valdez MD 11/12/2024 4:02 PM PRECISION THREAD GRINDER OPERATOR - 11/12/2024 11:59 PM PRECISION THREAD GRINDER OPERATOR Hospital Encounter [address] [address] S/P tricuspid valve replacement Discharge Disposition: Discharge to home or self care 11/12/2024 Telephone [facility] Cardiology [address] [facility] Medical Office Building [address] [place] [address] Carmella Mayorga CMA 11/12/2024 4:00 PM PRECISION THREAD GRINDER OPERATOR Lab [facility] Endocrinology Metabolism and Lipid [address] [place] [address] S/P tricuspid valve replacement 11/12/2024 Results Follow-Up [facility] Cardiology [facility] [address] [place] [address] [place] [address] Shawanda Maurice NP 11/12/2024 2:30 PM PRECISION THREAD GRINDER OPERATOR Office Visit [facility] Cardiology [address] [place] [address] [place] [address] Shawanda Maurice NP 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] (Primary Dx); S/P tricuspid valve replacement; Primary hypertension; Mixed hyperlipidemia 11/12/2024 12:33 PM PRECISION THREAD GRINDER OPERATOR - 11/12/2024 11:59 PM PRECISION THREAD GRINDER OPERATOR Hospital Encounter [facility] Cardiac Diagnostic Lab [address] [address] Tricuspid regurgitation, non-Ebstein's related Discharge Disposition: Discharge to home or self care 10/30/2024 Telephone [facility] Surgery Chanel Kelley NP 10/25/2024 Telephone [facility] Cardiology [address] [place] [address] [place] [address] [place] [address] Irasema Valdze MD ppwk 10/23/2024 Telephone [facility] Cardiology [address] [place] [address] [place] [address] Irasema Valdez MD 10/22/2024 Telephone [facility] Cardiology [facility] [address] [place] [address] [place] [address] Irasema Valdez MD 10/22/2024 Telephone [facility] Internal Medicine Chanel Kelley NP 10/22/2024 Telephone [facility] Cardiology [facility] Advanced Medicine 8th [place] [address] [place] [address] Prince Campo MD 10/16/2024 4:44 PM PRECISION THREAD GRINDER OPERATOR - 10/20/2024 2:21 PM PRECISION THREAD GRINDER OPERATOR Hospital Encounter [facility] [address] [place] [address] Irasema Valdez MD Osman, Ali H., MD Khan, Ali Ayub, MD Kaneko, Tsuyoshi, MD 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] (Primary Dx); Tricuspid regurgitation, non-Ebstein's related; S/P tricuspid valve replacement Discharge Disposition: Discharge to home or self care 10/18/2024 11:00 AM PRECISION THREAD GRINDER OPERATOR - 10/18/2024 2:30 PM PRECISION THREAD GRINDER OPERATOR Surgery [facility] Electrophysiology Lab [address] [place] [address] Irasema Valdez MD Transcatheter Tricuspid Valve Implant (TTVI/TTVR) 10/18/2024 11:07 AM PRECISION THREAD GRINDER OPERATOR Anesthesia Event [facility] Electrophysiology Lab [address] [place] [address] Chanelle Doyle MD Harkins, Cherice Lynette, NP 10/16/2024 10:30 AM PRECISION THREAD GRINDER OPERATOR Pre-Admission Testing [facility] [address] [place] [id number] Preoperative testing (Primary Dx); Easy bruising 10/02/2024 Telephone [facility] Cardiology [address] [place] [address] Advanced Medicine 8th [place] [address] [place] [address] Irasema Valdez MD 09/24/2024 Telephone [facility] Cardiology [address] [place] [address] Advanced [facility] 8th [place] [address] [place] [address] Irasema Valdez MD procedural inquiry from Last [...] 10/19/2024 Assessment & Plan (10/19/2024 11:13 AM PRECISION THREAD GRINDER OPERATOR): - continue Simvastatin - low fat low cholesterol diet S/P tricuspid valve replacement 10/18/2024 Assessment & Plan (10/19/2024 11:09 AM PRECISION THREAD GRINDER OPERATOR): S/p TTVR 10/18 with Evoque Remove figure [...] 10/16/2024 Assessment & Plan (10/17/2024 1:57 PM PRECISION THREAD GRINDER OPERATOR): Patient with history of symptomatic severe tricuspid [...] 05/03/2024 Assessment & Plan (10/18/2024 12:05 PM PRECISION THREAD GRINDER OPERATOR): Goal SBP <160 Assessment & Plan (10/17/2024 1:56 PM PRECISION THREAD GRINDER OPERATOR): Continue home propranolol, lisinopril Diastolic heart failure 05/03/2024 Assessment & Plan (10/18/2024 2:27 PM PRECISION THREAD GRINDER OPERATOR): Acute on chronic Diuresis this admission No plans to restart milrinone post-TTVR Shortness of breath 04/30/2024 Tricuspid regurgitation, non-Ebstein's related 0 02/29/2024 Assessment & Plan (10/18/2024 12:05 PM PRECISION THREAD GRINDER OPERATOR): TTVR 10/18 Aftercare following right knee joint replacement surgery 01/06/2024 History of colonic polyps 10/03/2020 Change in bowel habit 02/08/2020 Lactose intolerance 02/08/2020 Incontinence of feces 06/21/2018 Overview (06/21/2018): Added automatically from request for surgery [id number] Fecal incontinence 08/08/2015 Assessment & Plan (10/16/2024 9:24 PM PRECISION THREAD GRINDER OPERATOR): 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 status post Medtronic device stimulation - continue home Lomotil GERD (gastroesophageal reflux disease) Assessment & Plan (10/16/2024 9:23 PM PRECISION THREAD GRINDER OPERATOR): Continue home PPI Resolved Problems Problem Noted [...] on file 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:54 AM PRECISION THREAD GRINDER OPERATOR Gender Identity Female 02/06/2020 12:07 PM CDT Sexual Orientation Not on file Last Filed Vital Signs Vital Sign Reading Time Taken Comments Blood Pressure 118/74 11/26/2024 2:16 PM CDT Pulse 71 11/26/2024 2:16 PM CDT Temperature 36.4 C (97.5 F) 10/20/2024 9:37 AM PRECISION THREAD GRINDER OPERATOR Respiratory Rate 16 10/20/2024 12:36 PM PRECISION THREAD GRINDER OPERATOR Oxygen Saturation 94% 11/26/2024 2:16 PM CDT Inhaled Oxygen Concentration - - Weight 63 kg (139 lb) 11/26/2024 2:16 PM CDT Height 154.9 cm (5' 1 ) 11/26/2024 2:16 PM CDT Body Mass Index 26.26 11/26/2024 2:16 PM CDT Plan of Treatment Not on file Medical Devices Implanted Type Area Doll Repairer Device Identifier Shelf Expiration Date Model / Serial / Lot [employer] Ramiro Angio-Seal Vip 6fr Closere Device [id number] - [id number] - [id number] Implanted:Qty: 1 on 05/11/2024 by Irasema Valdez MD at [facility] Collagen Right: Groin [employer] Ramiro 01/01/2025 [id number] / [id number] / [id number] Medtronic Inc Neurostimulator Generator 3058 - [id number] - [id number] Implanted:Qty: 1 on 12/17/2022 by Nereyda Kemp MD at [facility] Other - see comments Left: Buttocks Medtronic Inc 12/31/2022 3058 / [id number] / NA Description:Implant pause pe rformed prior to opening implant to sterile field Medtronic Inc Interstim 28cm Quadripolar Mri Web Applications Administrator Neurostimulator [id number] - [id number] - [id number] Implanted:Qty: 1 on 12/17/2022 by Nereyda Kemp MD at [facility] Other - see comments Right: Sacrum Medtronic Inc 2024 [id number] / NA / [id number] Description:Implant pause pe rformed prior to opening implant to sterile field [employer] Evoque 48mm Transcatheter Tricuspid Heart Valve [id number] - [id number] - [id number] Implanted:Qty: 1 on 10/18/2024 by Irasema Valdez MD at [facility] Prosthetic Valve N/A: Tricuspid Valve [employer] 10/23/2025 [id number] / [id number] / Stimulator Stimulator Left: Hip Vagus Nerve Stimulator- 3 Implanted: 3 (Quantity not on file) Vagus Nerve Stimulator Left: Hip Medtronic [facility] Closure Repair Femoral Artery Suture Mediated Perclose Prostyle 09559-55 - [id number] - [id number] Implanted:Qty: 1 on 10/18/2024 by Irasema Valdez MD at [facility] Vascular Closure Device Left: Femoral Vein [employer] 07/19/2026 85530-26 / [id number] / [id number] [employer] System Closure Repair Femoral Artery Suture Mediated Perclose Prostyle 76772-02 - [id number] - [id number] Implanted:Qty: 1 on 10/18/2024 by Irasema Valdez MD at [facility] Vascular Closure Device Left: Femoral Vein [employer] 07/19/2026 28000-36 / [id number] / [id number] [employer] Cement Bone High Viscosity Gentamicin Radiopaque Single Dose Hemiarthroplpasty Simplex [id number] Pmma 6195-1-010 - [id number] Implanted:Qty: 1 on 11/21/2023 by Herson Elam MD at [facility] Right: Knee [employer] 12/17/2024 6195-1-010 / / [id number] [employer] Cement Bone High Viscosity Gentamicin Radiopaque Single Dose Hemiarthroplpasty Simplex [id number] Pmma 6195-1-010 - [id number] Implanted:Qty: 1 on 11/21/2023 by Herson Elam MD at [facility] Right: Knee [employer] 12/17/2024 6195-1-010 / / [id number] [employer] Attune S+ Cement Fix Bearing Knee 4 Baseplate Tibial [id number] - [id number] Implanted:Qty: 1 on 11/21/2023 by Herson Elam MD at [facility] Right: Knee [employer] 04/18/2033 [id number] / / [id number] [employer] Attune Cemented Posterior Stabilize Knee Right 5 Narrow Component [id number] - [id number] Implanted:Qty: 1 on 11/21/2023 by Herson Elam MD at [facility] Right: Knee [employer] 06/18/2033 [id number] / / [id number] [employer] Attune 35mm Cemented Medialize Knee Dome Patellar Aox Sterile [id number] - [id number] Implanted:Qty: 1 on 11/21/2023 by Herson Elam MD at [facility] Right: Knee [employer] 04/18/2028 [id number] / / [id number] [employer] Attune 6mm Posterior Stabilize Fix Bearing Knee 5 Insert Tibial [id number] - [id number] Implanted:Qty: 1 on 11/21/2023 by Herson Elam MD at [facility] Right: Knee [employer] 05/19/2028 [id number] / / [id number] Explanted Type Area Doll Repairer Device Identifier Shelf Expiration Date Model / Serial / Lot Medtronic Neuro 3889-28 Interstim 28cm Quadripolar Lead Neurostimulator - [id number] Implanted:Qty: 1 on 08/04/2018 by Nereyda Kemp MD at [facility] Explanted:Qty: 1 on 12/17/2022 at [facility] N/A: Back Medtronic Neuro 04/27/2022 3889-28 / / [id number] Medtronic Neuro 3058 Interstim Ii 2inx1.7in 4 Electrode Investigative Assistant Sacral Nerve - [id number] Implanted:Qty: 1 on 08/17/2018 by Nereyda Kemp [...] B-TYPE NATRIURETIC PEPTIDE Routine 11/12/2024 4:02 PM PRECISION THREAD GRINDER OPERATOR S/P tricuspid valve replacement BASIC METABOLIC PANEL Routine 11/12/2024 4:02 PM PRECISION THREAD GRINDER OPERATOR S/P tricuspid valve replacement CBC WITHOUT DIFFERENTIAL Routine 11/12/2024 4:02 PM PRECISION THREAD GRINDER OPERATOR S/P tricuspid valve replacement ECG 12-LEAD Routine 11/12/2024 2:44 PM PRECISION THREAD GRINDER OPERATOR 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] S/P tricuspid valve replacement TRANSTHORACIC ECHO (TTE) COMPLETE W DOPPLER/CF WO CONTRAST Routine 11/12/2024 2:04 PM PRECISION THREAD GRINDER OPERATOR Tricuspid regurgitation, non-Ebstein's related ECG 12-LEAD Routine 10/20/2024 5:54 AM PRECISION THREAD GRINDER OPERATOR EGFR Routine 10/20/2024 4:35 AM PRECISION THREAD GRINDER OPERATOR DIFFERENTIAL AUTO Routine 10/20/2024 4:3 5 AM PRECISION THREAD GRINDER OPERATOR BASIC METABOLIC PANEL Routine 10/20/2024 4:35 AM PRECISION THREAD GRINDER OPERATOR CBC WITH AUTO DIFFERENTIAL Routine 10/20/2024 4:35 AM PRECISION THREAD GRINDER OPERATOR PHOSPHORUS Routine 10/20/2024 4:35 AM PRECISION THREAD GRINDER OPERATOR MAGNESIUM Routine 10/20/2024 4:35 AM PRECISION THREAD GRINDER OPERATOR TRANSTHORACIC ECHO (TTE) COMPLETE W DOPPLER/CF W CONTRAST Pending Discharge 10/19/2024 5:49 PM PRECISION THREAD GRINDER OPERATOR HEPATIC FUNCTION PANEL STAT 10/19/2024 11:50 AM PRECISION THREAD GRINDER OPERATOR PROTIME-INR STAT 10/19/2024 11:50 AM PRECISION THREAD GRINDER OPERATOR XR CHEST PA LATERAL 2 VIEWS IP Routine 10/19/2024 8:19 AM PRECISION THREAD GRINDER OPERATOR ECG 12-LEAD Routine 10/19/2024 4:24 AM PRECISION THREAD GRINDER OPERATOR EGFR Routine 10/18/2024 11:26 PM PRECISION THREAD GRINDER OPERATOR DIFFERENTIAL AUTO Routine 10/18/2024 11:26 PM PRECISION THREAD GRINDER OPERATOR BASIC METABOLIC PANEL Routine 10/18/2024 11:26 PM PRECISION THREAD GRINDER OPERATOR CBC WITH AUTO DIFFERENTIAL Routine 10/18/2024 11:26 PM PRECISION THREAD GRINDER OPERATOR PHOSPHORUS Routine 10/18/2024 11:26 PM PRECISION THREAD GRINDER OPERATOR MAGNESIUM Routine 10/18/2024 11:26 PM PRECISION THREAD GRINDER OPERATOR XR CHEST 1 VIEW ED Urgent/IP Urgent 10/18/2024 2:22 PM PRECISION THREAD GRINDER OPERATOR EGFR Routine 10/18/2024 2:10 PM PRECISION THREAD GRINDER OPERATOR DIFFERENTIAL AUTO Routine 10/18/2024 2:1 0 PM PRECISION THREAD GRINDER OPERATOR APTT Routine 10/18/2024 2:10 PM PRECISION THREAD GRINDER OPERATOR PROTIME-INR Routine 10/18/2024 2:10 PM PRECISION THREAD GRINDER OPERATOR CBC WITH AUTO DIFFERENTIAL Routine 10/18/2024 2:10 PM PRECISION THREAD GRINDER OPERATOR COMPREHENSIVE METABOLIC PANEL Routine 10/18/2024 2:10 PM PRECISION THREAD GRINDER OPERATOR MAGNESIUM Routine 10/18/2024 2:10 PM PRECISION THREAD GRINDER OPERATOR ECG 12-LEAD STAT 10/18/2024 1:57 PM PRECISION THREAD GRINDER OPERATOR INTRACARDIAC ECHOCARDIOGRAM Routine 10/18/2024 1:40 PM PRECISION THREAD GRINDER OPERATOR Tricuspid regurgitation, non-Ebstein's related TRANSCATHETER TRICUSPID VALVE IMPLANT Routine 10/18/2024 1:40 PM PRECISION THREAD GRINDER OPERATOR Tricuspid regurgitation, non-Ebstein's related NADINE GUIDANCE DURING CARDIAC STRUCTURAL INTVN 41596 Routine 10/18/2024 1:30 PM PRECISION THREAD GRINDER OPERATOR POCT ACTIVATED CLOTTING TIME, LOW RANGE Routine 10/18/2024 12:52 PM PRECISION THREAD GRINDER OPERATOR POCT ACTIVATED CLOTTING TIME, LOW RANGE Routine 10/18/2024 12:27 PM PRECISION THREAD GRINDER OPERATOR POCT ACTIVATED CLOTTING TIME, LOW RANGE Routine 10/18/2024 12:19 PM PRECISION THREAD GRINDER OPERATOR VA AN PROCEDURE PLACEHOLDER Routine 10/18/2024 11:32 AM PRECISION THREAD GRINDER OPERATOR VA AN PROCEDURE PLACEHOLDER Routine 10/18/2024 11:32 AM PRECISION THREAD GRINDER OPERATOR VA AN ELECTIVE ENDOTRACHEAL AIRWAY Routine 10/18/2024 11:32 AM PRECISION THREAD GRINDER OPERATOR POCT GLUCOSE DEVICE Routine 10/18/2024 10:42 AM PRECISION THREAD GRINDER OPERATOR B CHECK SAMPLE STAT 10/18/2024 10:40 AM PRECISION THREAD GRINDER OPERATOR PREPARE RBC Timed 10/18/2024 10:25 AM PRECISION THREAD GRINDER OPERATOR EGFR Routine 10/18/2024 3:48 AM PRECISION THREAD GRINDER OPERATOR DIFFERENTIAL AUTO Routine 10/18/2024 3:4 8 AM PRECISION THREAD GRINDER OPERATOR PROTIME-INR Routine 10/18/2024 3:48 AM PRECISION THREAD GRINDER OPERATOR CBC WITH AUTO DIFFERENTIAL Routine 10/18/2024 3:48 AM PRECISION THREAD GRINDER OPERATOR BASIC METABOLIC PANEL Routine 10/18/2024 3:48 AM PRECISION THREAD GRINDER OPERATOR MAGNESIUM Routine 10/18/2024 3:48 AM PRECISION THREAD GRINDER OPERATOR PHOSPHORUS Routine 10/18/2024 3:48 AM PRECISION THREAD GRINDER OPERATOR EGFR Routine 10/17/2024 4:08 AM PRECISION THREAD GRINDER OPERATOR CBC WITHOUT DIFFERENTIAL Routine 10/17/2024 4:08 AM PRECISION THREAD GRINDER OPERATOR COMPREHENSIVE METABOLIC PANEL Routine 10/17/2024 4:08 AM PRECISION THREAD GRINDER OPERATOR EGFR Routine 10/16/2024 12:11 PM PRECISION THREAD GRINDER OPERATOR Preoperative testing URINALYSIS, MICROSCOPIC ONLY Routine 10/16/2024 12:11 PM PRECISION THREAD GRINDER OPERATOR Preoperative testing DIFFERENTIAL AUTO Routine 10/16/2024 12:11 PM PRECISION THREAD GRINDER OPERATOR Preoperative testing CBC WITH AUTO DIFFERENTIAL Routine 10/16/2024 12:11 PM PRECISION THREAD GRINDER OPERATOR Preoperative testing COMPREHENSIVE METABOLIC PANEL Routine 10/16/2024 12:11 PM PRECISION THREAD GRINDER OPERATOR Preoperative testing TYPE AND SCREEN 14 DAY Routine 10/16/2024 12:11 PM PRECISION THREAD GRINDER OPERATOR Preoperative testing PROTIME-INR Routine 10/16/2024 12:11 PM PRECISION THREAD GRINDER OPERATOR Preoperative testing Easy bruising CPAP APTT ALGORITHM Routine 10/16/2024 12:11 PM PRECISION THREAD GRINDER OPERATOR Preoperative testing URINALYSIS AND REFLEX TO MICROSCOPIC AND CULTURE Routine 10/16/2024 12:11 PM PRECISION THREAD GRINDER OPERATOR Preoperative testing ECG 12-LEAD Routine 10/16/2024 11:26 AM PRECISION THREAD GRINDER OPERATOR Preoperative testing COLONOSCOPY 11/12/2020 12:00 PM PRECISION THREAD GRINDER OPERATOR from Last 3 Months or Most Recently Relevant to Health Maintenance Results * Magnesium (11/26/2024 3:30 PM CDT) Pathologist [facility] Magnesium 2.1 1.6 - 2.6 mg/dL [facility] Blood 11/26/2024 3:30 PM CDT 11/26/2024 4:14 PM CDT us Irasema Valdez MD LAB BLOOD ORDERABLES Final Resu lt [facility] CORE [facility] * (ABNORMAL) Basic metabolic panel (11/26/2024 3:30 PM CDT) Glucose 92 64 - 99 mg/dL [facility] Comment: NONFASTING GLUCOSE RANGE = 64-199 [...] Pro B-type natriuretic peptide (11/12/2024 4:02 PM PRECISION THREAD GRINDER OPERATOR) NT-proBNP 1,758(H) <=450 pg/mL Comment: Interpretive Comments: [...] Revised Date: 2018. Blood 11/12/2024 4:02 PM PRECISION THREAD GRINDER OPERATOR 11/12/2024 6:34 PM PRECISION THREAD GRINDER OPERATOR Shawanda Maurice NP LAB BLOOD ORDERABLES Final R esult [facility] Department [place] [address] * (ABNORMAL) CBC without differential (11/12/2024 4:02 PM PRECISION THREAD GRINDER OPERATOR) White Blood Count 4.8 3.6 - 11.2 [...] [facility] Blood 11/12/2024 4:02 PM PRECISION THREAD GRINDER OPERATOR 11/12/2024 4:27 PM PRECISION THREAD GRINDER OPERATOR Shawanda Maurice NP LAB BLOOD ORDERABLES Final R esult Performing Organization Address City/[facility] Co de Phone Number [facility] CORE LAB [facility] * (ABNORMAL) Basic metabolic panel (11/12/2024 4:02 PM PRECISION THREAD GRINDER OPERATOR) Glucose 105(H) 64 - 99 mg/dL [facility] [...] [facility] Blood 11/12/2024 4:02 PM PRECISION THREAD GRINDER OPERATOR 11/12/2024 4:27 PM PRECISION THREAD GRINDER OPERATOR Shawanda Greerdle LAB BLOOD ORDERABLES Final R esult Performing Organization Address [facility] Co de Phone Number [facility] CORE [facility] * ECG 12 lead (11/12/2024 2:44 PM PRECISION THREAD GRINDER OPERATOR) Shawanda Greerdle DRIVE THRU ORDER TAKER ECG ORDERABLES Edited Resul t - Final * TRANSTHORACIC ECHO (TTE) COMPLETE W DOPPLER/CF WO CONTRAST (11/12/2024 2:04 PM PRECISION THREAD GRINDER OPERATOR) LV EF 60-65 % CONS SCIMAGE Anatomical Region Laterality Modality Ultrasound 11/12/2024 12:5 9 PM PRECISION THREAD GRINDER OPERATOR Narrative 11/12/2024 2:46 PM PRECISION THREAD GRINDER OPERATOR [facility] Cardiac [place] [address] Transthoracic Echocardiographic Report Patient Name: STACY HERRON : 1945 (79y 9m) Gender: F Study Date: 11/12/2024 12:59:37 PM Ht(Inch): 61 Wt(Lb): 136.02 BSA: 1.63 Supervisor Cutting Department: Shy Kellogg RDCS Location: [facility] Order Provider: IRASEMA VALDEZ Heart Rate: 67 BMI: 25.7 BP: 136 / 84 Quality: The study images were of technically good quality. Ref Provider: IRASEMA VALDEZ PROCEDURES: Echocardiographic Report: ([id number], [id number]) Transthoracic complete echo with strain imaging, 2D, [...] By: Rom Breen M.D. 11/12/2024 2:46:23 PM PRECISION THREAD GRINDER OPERATOR Electronically Signed By: Rom Breen M.D. 11/12/2024 2:46:23 PM PRECISION THREAD GRINDER OPERATOR Procedure Note Rom Breen MD - 11/12/2024 [facility] Card[facility] [place] [address] Transthoracic Echocardiographic Report Patient Name: STACY HERRON : 1945 (79y 9m) Gender: F Study Date: 11/12/2024 12:59:37 PM Ht(Inch): 61 Wt(Lb): 136.02 BSA: 1.63 Supervisor Cutting Department: Shy Kellogg RDCS Location: [facility] Order Provider:IRASEMA VALDEZ Heart Rate: 67 BMI: 25.7 BP: 136 / 84 Quality: The study images were oftechnically good quality. Ref Provider: IRASEMA VALDEZ PROCEDURES: Echocardiographic Report: ([id number], [id number]) Transthoracic complete echo withstrain imaging, 2D, spectral [...] study completed on 10-19-2024. No change compared [facility]. ATTESTATION: I have reviewed and [...] By: Rom Breen M.D. 11/12/2024 2:46:23 PM PRECISION THREAD GRINDER OPERATOR Electronically Signed By: Rom Breen M.D. 11/12/2024 2:46:23 PM PRECISION THREAD GRINDER OPERATOR Irasema Valdez MD CV ECHO PROCEDURES Final Result * ECG 12 lead (10/20/2024 5:54 AM PRECISION THREAD GRINDER OPERATOR) Pathologist [facility] Ventricular Rate EKG/Min 103 BPM [facility] Atrial Rate 103 BPM [facility] VA-Interval (MSEC) 154 ms [facility] QRS-Interval (MSEC) 112 ms [facility] QT-Interval (MSEC) 352 ms [facility] QTc 461 ms [facility] P [place] 49 degrees [facility] R [place] 49 degrees [facility] T [place] -25 degrees [facility] Diagnosis Sinus tachycardia Incomplete right bundle branch block ST & T wave abnormality, consider inferior ischemia ST & T wave abnormality, consider anterolateral ischemia Abnormal ECG Confirmed by Deborah Stacy MD ([id number]) on 10/22/2024 6:39:54 PM [facility] 10/20/2024 5:54 AM PRECISION THREAD GRINDER OPERATOR 10/22/2024 6:39 PM PRECISION THREAD GRINDER OPERATOR us Chanel Kelley DRIVE THRU ORDER TAKER ECG ORDERABLES Final Resul t [facility] * eGFR (10/20/2024 4:35 AM PRECISION THREAD GRINDER OPERATOR) eGFR 69 >=60 mL/min/1. 73 m2 Comment: [...] last reviewed 2021. Blood 10/20/2024 4:35 AM PRECISION THREAD GRINDER OPERATOR 10/20/2024 5:15 AM PRECISION THREAD GRINDER OPERATOR Terri Soni DRIVE THRU ORDER TAKER LAB BLOOD ORDERABLES Final Result [facility] Department [place] [address] * (ABNORMAL) Differential, auto (10/20/2024 4:35 AM PRECISION THREAD GRINDER OPERATOR) Neutrophil abs 7.6(H) 1.5 - 6.5 K/cumm Imm gran abs 0.0 0.0 - 0.1 K/cumm [facility] Lymphocyte abs 1.1 0.8 - 3.3 K/cumm [facility] Monocyte abs 0.9(H) 0.2 - 0.8 K/cumm [facility] Eosinophil abs 0.0 0.0 - 0.5 K/cumm [facility] Basophil abs 0.0 0.0 - 0.1 K/cumm [facility] Neutrophil pct 79.0 % [facility] Comment: Interpretive Data Percent cell count reference ranges are not reported, since discordance with absolute values may lead to misinterpretation of CBC data. Current Interpretive Data was last revised on 2017. Imm gran pct 0.4 % [facility] Comment: Interpretive Data Percent cell count reference ranges are not reported, since discordance with absolute values may lead to misinterpretation of CBC data. Current Interpretive Data was last revised on 2017. Lymphocyte pct 10.8 % [facility] Comment: Interpretive Data Percent cell count reference ranges are not reported, since discordance with absolute values may lead to misinterpretation of CBC data. Current Interpretive Data was last revised on 2017. Monocyte pct 9.4 % [facility] Comment: Interpretive Data Percent cell count reference ranges are not reported, since discordance with absolute values may lead to misinterpretation of CBC data. Current Interpretive Data was last revised on 2017. Eosinophil pct 0.2 % [facility] Comment: Interpretive Data Percent cell count reference ranges are not reported, since discordance with absolute values may lead to misinterpretation of CBC data. Current Interpretive Data was last revised on 2017. Basophil pct 0.2 % [facility] Comment: Interpretive Data Percent cell count reference ranges are not reported, since discordance with absolute values may lead to misinterpretation of CBC data. Current Interpretive Data was last revised on 2017. Blood 10/20/2024 4:35 AM PRECISION THREAD GRINDER OPERATOR 10/20/2024 5:15 AM PRECISION THREAD GRINDER OPERATOR us Terri Soni NP LAB BLOOD ORDERABLES Final Result [facility] Department [place] [address] * (ABNORMAL) CBC with auto differential (10/20/2024 4:35 AM PRECISION THREAD GRINDER OPERATOR) [facility] WBC 9.7 3.8 - 9.9 K/cumm Hgb 11.0(L) 11.9 - 15.5 g/dL [facility] Hct 32.5(L) 35.6 - 45.5 % [facility] Plt 139(L) 150 - 400 K/cumm [facility] MPV 10.3 9.1 - 12.3 fL [facility] RBC 3.57(L) 3.90 - 5.20 M/cumm [facility] MCV 91.0 81.3 - 96.4 fL [facility] MCH 30.8 27.1 - 33.3 pg [facility] MCHC 33.8 32.3 - 35.7 g/dL [facility] RDW CV 14.1 11.1 - 14.9 % [facility] RDW SD 47.2 35.7 - 48.1 fL [facility] NRBC abs 0.00 0.00 - 0.01 K/cumm [facility] Blood 10/20/2024 4:35 AM PRECISION THREAD GRINDER OPERATOR 10/20/2024 5:15 AM PRECISION THREAD GRINDER OPERATOR Terri Soni DRIVE THRU ORDER TAKER LAB BLOOD ORDERABLES Final Result Performing Organization Address [facility] de Phone Number [facility] [place] [address] * Phosphorus (10/20/2024 4:35 AM PRECISION THREAD GRINDER OPERATOR) [facility] Phosphorus, pl 2.8 2.3 - 4.5 mg/dL Blood 10/20/2024 4:35 AM PRECISION THREAD GRINDER OPERATOR 10/20/2024 5:15 AM PRECISION THREAD GRINDER OPERATOR Terri Soni DRIVE THRU ORDER TAKER LAB BLOOD ORDERABLES Final Result Performing Organization Address [facility] Co de Phone Number [facility] Department [place] [address] * Magnesium (10/20/2024 4:35 AM PRECISION THREAD GRINDER OPERATOR) Magnesium 1.8 1.4 - 2.5 mg/dL Blood 10/20/2024 4:35 AM PRECISION THREAD GRINDER OPERATOR 10/20/2024 5:15 AM PRECISION THREAD GRINDER OPERATOR Terri Soni DRIVE THRU ORDER TAKER LAB BLOOD ORDERABLES Final Result [facility] Department [place] [address] * Basic metabolic panel (10/20/2024 4:35 AM PRECISION THREAD GRINDER OPERATOR) Pathologist [facility] Sodium 140 135 - 145 mmol/L Potassium, pl 4.0 3.3 - 4.9 mmol/L [facility] Chloride 104 97 - 110 mmol/L [facility] CO2 28 22 - 32 mmol/L [facility] Anion gap 8 2 - 15 mmol/L [facility] BUN 15 6 - 25 mg/dL [facility] Creatinine 0.87 0.60 - 1.10 mg/dL [facility] Glucose 95 70 - 199 mg/dL [facility] Comment: Interpretive Data Fasting glucose >/= 126 [...] 2022. Calcium 8.8 8.5 - 10.3 mg/dL [facility] Blood 10/20/2024 4:35 AM PRECISION THREAD GRINDER OPERATOR 10/20/2024 5:15 AM PRECISION THREAD GRINDER OPERATOR Terri Soni DRIVE THRU ORDER TAKER LAB BLOOD ORDERABLES Final Result [facility] [place] [address] * TRANSTHORACIC ECHO (TTE) COMPLETE W DOPPLER/CF W CONTRAST (10/19/2024 5:49 PM PRECISION THREAD GRINDER OPERATOR) LV EF % CONS SCIMAGE Anatomical Region Laterality Modality Ultrasound 10/19/2024 4:43 PM PRECISION THREAD GRINDER OPERATOR Narrative 10/22/2024 11:13 AM PRECISION THREAD GRINDER OPERATOR [facility] [place] [address] Transthoracic Echocardiographic Report Patient Name: STACY HERRON : 1945 (79y 9m) Gender: F Study Date: 10/19/2024 04:43:04 PM Ht(Inch): 61 Wt(Lb): 134.92 BSA: 1.62 Supervisor Cutting Department: Beth Guajardo [facility] Location: [id number] Order Provider: CHANEL KELLEY BMI: 25.49 BP: 115 / 84 Quality: The study images were of technically good quality. Ref Provider: CHANEL KELLEY PROCEDURES: Echocardiographic Report: ([id number], [id number], [id number]) Transthoracic complete echo with strain imaging and [...] [ 1.71 - 5.00 ] PV Accel Carter 763.32 cm/sec2 AoR Diam 2D 2.93 cm [...] By: Bk Castillo MD 10/22/2024 10:57:14 AM PRECISION THREAD GRINDER OPERATOR Electronically Signed By: Rom Breen M.D. 10/22/2024 11:12:10 AM PRECISION THREAD GRINDER OPERATOR Procedure Note Rom Breen MD - 10/22/2024 [facility] [place] [address] Transthoracic Echocardiographic Report Patient Name: STACY HERRON : 1945 (79y 9m) Gender: F Study Date: 10/19/2024 04:43:04 PM Ht(Inch): 61 Wt(Lb): 134.92 BSA: 1.62 Supervisor Cutting Department: Beth Guajardo [facility] Location: [id number] Order Provider:CHANEL KELLEY BMI: 25.49 BP: 115 / 84 Quality: The study images were oftechnically good quality. Ref Provider: CHANEL KELLEY PROCEDURES: Echocardiographic Report: ([id number], [id number]) Transthoracic completeecho with strain imaging and contrast, [...] [ 46.00 - 106.00 ] MV Decel [id number] msec [ 104.00 - 258.00 ] ESV [...] [ 1.71 - 5.00 ] PV Accel Mknou558.32 cm/sec2 AoR Diam 2D 2.93 cm [ [...] By: Bk Castillo MD 10/22/2024 10:57:14 AM PRECISION THREAD GRINDER OPERATOR Electronically Signed By: Rom Breen M.D. 10/22/2024 11:12:10 AM PRECISION THREAD GRINDER OPERATOR us Chanel Kelley NP CV ECHO PROCEDURES Final Re sult * Protime-INR (10/19/2024 11:50 AM PRECISION THREAD GRINDER OPERATOR) Pathologist [facility] PT 11.0 9.7 - 13.0 sec INR 1.02 0.90 - 1.20 [facility] Comment: Interpretive data Oral anticoagulant therapeutic ranges: Venous thromboembolism prophylaxis or treatment: 2.0-3.0 CARDIOLOGY Standard range: 2.0-3.0 High-intensity range: 2.5-3.5 Refer to indication-specific guidelines for appropriate target ranges for prosthetic heart valve replacement. Current interpretive data was last revised on 2019. Blood 10/19/2024 11:5 0 AM PRECISION THREAD GRINDER OPERATOR 10/19/2024 12:38 PM PRECISION THREAD GRINDER OPERATOR Narrative [facility] - 10/19/2024 1:02 PM PRECISION THREAD GRINDER OPERATOR Baseline prior to apixaban initiation. us Isaiah Crockett NP LAB BLOOD ORDERABLES Final R esult [facility] Department [place] [address] * (ABNORMAL) Hepatic function panel (10/19/2024 11:50 AM PRECISION THREAD GRINDER OPERATOR) Pathologist [facility] Bilirubin, total 0.5 0.1 - 1.2 mg/dL Bilirubin, direct <0.2 0.1 - 0.3 mg/dL [facility] Protein, pl 7.5 6.5 - 8.5 g/dL [facility] Albumin 4.5 3.5 - 5.0 g/dL [facility] Alk phos 95 40 - 130 Units/L [facility] ALT 24 7 - 45 Units/L [facility] AST 55(H) 10 - 45 Units/L [facility] Blood 10/19/2024 11:5 0 AM PRECISION THREAD GRINDER OPERATOR 10/19/2024 12:40 PM PRECISION THREAD GRINDER OPERATOR Narrative [facility] - 10/19/2024 1:10 PM PRECISION THREAD GRINDER OPERATOR Baseline prior to apixaban initiation. Isaiah Crockett NP LAB BLOOD ORDERABLES Final R esult [facility] Department [place] [address] * XR Chest PA Lateral 2 Views (10/19/2024 8:19 AM PRECISION THREAD GRINDER OPERATOR) Anatomical Region Laterality Modality Body, Chest N/A Computed Radiogr aphy 10/19/2024 11:0 9 AM PRECISION THREAD GRINDER OPERATOR Impressions 10/19/2024 11:45 AM PRECISION THREAD GRINDER OPERATOR Comparison is made to radiograph dated 10/18/2024 [...] Rodrigo Tolentino M.D. Narrative 10/19/2024 11:45 AM PRECISION THREAD GRINDER OPERATOR EXAMINATION: 2 view chest radiograph Procedure Note [...] by: Rodrigo Tolentino M.D. us Chanel Kelley DRIVE THRU ORDER TAKER IMG XR PROCEDURES Final Res ult * ECG 12 lead (10/19/2024 4:24 AM PRECISION THREAD GRINDER OPERATOR) Ventricular Rate EKG/Min 102 BPM [facility] Atrial Rate 102 BPM [facility] VA-Interval (MSEC) 154 ms [facility] QRS-Interval (MSEC) 106 ms [facility] QT-Interval (MSEC) 376 ms [facility] QTc 490 ms [facility] P [place] 50 degrees [facility] R [place] 47 degrees [facility] T [place] -17 degrees [facility] Diagnosis Sinus tachycardia Low voltage QRS Incomplete right bundle branch block ST & T wave abnormality, consider anterior ischemia Abnormal ECG When compared with ECG of 18-OCT-2024 13:57, No significant change was found Confirmed by BENNY ADHIKARI M.D ([id number]) on 10/19/2024 10:23:40 AM [facility] 10/19/2024 4:24 AM PRECISION THREAD GRINDER OPERATOR 10/19/2024 10:23 AM PRECISION THREAD GRINDER OPERATOR us Chanel Kelley NP ECG ORDERABLES Final Resul t [facility] [place] * eGFR (10/18/2024 11:26 PM PRECISION THREAD GRINDER OPERATOR) eGFR 60 >=60 mL/min/1. 73 m2 Comment: [...] reviewed 2021. Blood 10/18/2024 11:2 6 PM PRECISION THREAD GRINDER OPERATOR 10/18/2024 11:49 PM PRECISION THREAD GRINDER OPERATOR us Terri Soni NP LAB BLOOD ORDERABLES Final Result [facility] Department [place] [address] * (ABNORMAL) Differential, auto (10/18/2024 11:26 PM PRECISION THREAD GRINDER OPERATOR) Neutrophil abs 7.1(H) 1.5 - 6.5 K/cumm Imm gran abs 0.0 0.0 - 0.1 K/cumm [facility] Lymphocyte abs 0.5(L) 0.8 - 3.3 K/cumm [facility] Monocyte abs 0.4 0.2 - 0.8 K/cumm [facility] Eosinophil abs 0.0 0.0 - 0.5 K/cumm [facility] Basophil abs 0.0 0.0 - 0.1 K/cumm [facility] Neutrophil pct 88.7 % [facility] Comment: Interpretive Data Percent cell count reference ranges are not reported, since discordance with absolute values may lead to misinterpretation of CBC data. Current Interpretive Data was last revised on 2017. Imm gran pct 0.3 % [facility] Comment: Interpretive Data Percent cell count reference ranges are not reported, since discordance with absolute values may lead to misinterpretation of CBC data. Current Interpretive Data was last revised on 2017. Lymphocyte pct 6.4 % [facility] Comment: Interpretive Data Percent cell count reference ranges are not reported, since discordance with absolute values may lead to misinterpretation of CBC data. Current Interpretive Data was last revised on 2017. Monocyte pct 4.6 % [facility] Comment: Interpretive Data Percent cell count reference ranges are not reported, since discordance with absolute values may lead to misinterpretation of CBC data. Current Interpretive Data was last revised on 2017. Eosinophil pct 0.0 % [facility] Comment: Interpretive Data Percent cell count reference ranges are not reported, since discordance with absolute values may lead to misinterpretation of CBC data. Current Interpretive Data was last revised on 2017. Basophil pct 0.0 % [facility] Comment: Interpretive Data Percent cell count reference ranges are not reported, since discordance with absolute values may lead to misinterpretation of CBC data. Current Interpretive Data was last revised on 2017. Blood 10/18/2024 11:2 6 PM PRECISION THREAD GRINDER OPERATOR 10/18/2024 11:50 PM PRECISION THREAD GRINDER OPERATOR Terri Soni DRIVE THRU ORDER TAKER LAB BLOOD ORDERABLES Final Result Performing Organization Address City/[facility]/ZIP Co de Phone Number [facility] Department [place] [address] * (ABNORMAL) CBC with auto differential (10/18/2024 11:26 PM PRECISION THREAD GRINDER OPERATOR) WBC 8.0 3.8 - 9.9 K/cumm Hgb 11.8(L) 11.9 - 15.5 g/dL [facility] Hct 36.3 35.6 - 45.5 % [facility] Plt 189 150 - 400 K/cumm [facility] MPV 10.0 9.1 - 12.3 fL [facility] RBC 3.96 3.90 - 5.20 M/cumm [facility] MCV 91.7 81.3 - 96.4 fL [facility] MCH 29.8 27.1 - 33.3 pg [facility] MCHC 32.5 32.3 - 35.7 g/dL [facility] RDW CV 13.6 11.1 - 14.9 % [facility] RDW SD 46.4 35.7 - 48.1 fL [facility] NRBC abs 0.00 0.00 - 0.01 K/cumm [facility] Blood 10/18/2024 11:2 6 PM PRECISION THREAD GRINDER OPERATOR 10/18/2024 11:50 PM PRECISION THREAD GRINDER OPERATOR Terri Soni DRIVE THRU ORDER TAKER LAB BLOOD ORDERABLES Final Result Performing Organization Address City/[facility]/ZIP Co de Phone Number [facility] Department [place] [address] * Phosphorus (10/18/2024 11:26 PM PRECISION THREAD GRINDER OPERATOR) Pathologist [facility] Phosphorus, pl 2.4 2.3 - 4.5 mg/dL Blood 10/18/2024 11:2 6 PM PRECISION THREAD GRINDER OPERATOR 10/18/2024 11:49 PM PRECISION THREAD GRINDER OPERATOR Terri Soni DRIVE THRU ORDER TAKER LAB BLOOD ORDERABLES Final Result [facility] [place] [address] * Magnesium (10/18/2024 11:26 PM PRECISION THREAD GRINDER OPERATOR) [facility] Magnesium 1.9 1.4 - 2.5 mg/dL Blood 10/18/2024 11:2 6 PM PRECISION THREAD GRINDER OPERATOR 10/18/2024 11:49 PM PRECISION THREAD GRINDER OPERATOR Terri Soni DRIVE THRU ORDER TAKER LAB BLOOD ORDERABLES Final Result [facility] [place] [address] * (ABNORMAL) Basic metabolic panel (10/18/2024 11:26 PM PRECISION THREAD GRINDER OPERATOR) [facility] Sodium 141 135 - 145 mmol/L Potassium, pl 4.4 3.3 - 4.9 mmol/L [facility] Chloride 105 97 - 110 mmol/L [facility] CO2 23 22 - 32 mmol/L [facility] Anion gap 13 2 - 15 mmol/L [facility] BUN 20 6 - 25 mg/dL [facility] Creatinine 0.97 0.60 - 1.10 mg/dL [facility] Glucose 240(H) 70 - 199 mg/dL [facility] Comment: Interpretive Data Fasting glucose >/= 126 [...] [facility]THA BURR Blood 10/18/2024 11:2 6 PM PRECISION THREAD GRINDER OPERATOR 10/18/2024 11:49 PM PRECISION THREAD GRINDER OPERATOR us Terri Soni NP LAB BLOOD ORDERABLES Final Result [facility] Department [place] [address] * XR Chest 1 view (10/18/2024 2:22 PM PRECISION THREAD GRINDER OPERATOR) Anatomical Region Laterality Modality Body, Chest N/A Computed Radiogr aphy 10/18/2024 3:07 PM PRECISION THREAD GRINDER OPERATOR Impressions 10/18/2024 4:23 PM PRECISION THREAD GRINDER OPERATOR Comparison is made to chest radiograph of [...] Rubina Hernandez M.D. Narrative 10/18/2024 4:23 PM PRECISION THREAD GRINDER OPERATOR EXAMINATION: 1 view chest radiograph Procedure Note [...] Res ult * eGFR (10/18/2024 2:10 PM PRECISION THREAD GRINDER OPERATOR) eGFR 63 >=60 mL/min/1. 73 m2 Comment: [...] last reviewed 2021. Blood 10/18/2024 2:10 PM PRECISION THREAD GRINDER OPERATOR 10/18/2024 2:25 PM PRECISION THREAD GRINDER OPERATOR Chanel Kelley NP LAB BLOOD ORDERABLES Final Result [facility] Department [place] [address] * Differential, auto (10/18/2024 2:10 PM PRECISION THREAD GRINDER OPERATOR) Neutrophil abs 4.8 1.5 - 6.5 K/cumm Imm gran abs 0.0 0.0 - 0.1 K/cumm [facility] Lymphocyte abs 0.8 0.8 - 3.3 K/cumm [facility] Monocyte abs 0.2 0.2 - 0.8 K/cumm [facility] Eosinophil abs 0.0 0.0 - 0.5 K/cumm [facility] Basophil abs 0.0 0.0 - 0.1 K/cumm [facility] Neutrophil pct 81.5 % [facility] Comment: Interpretive Data Percent cell count reference ranges are not reported, since discordance with absolute values may lead to misinterpretation of CBC data. Current Interpretive Data was last revised on 2017. Imm gran pct 0.5 % [facility] Comment: Interpretive Data Percent cell count reference ranges are not reported, since discordance with absolute values may lead to misinterpretation of CBC data. Current Interpretive Data was last revised on 2017. Lymphocyte pct 13.9 % [facility] Comment: Interpretive Data Percent cell count reference ranges are not reported, since discordance with absolute values may lead to misinterpretation of CBC data. Current Interpretive Data was last revised on 2017. Monocyte pct 3.3 % [facility] Comment: Interpretive Data Percent cell count reference ranges are not reported, since discordance with absolute values may lead to misinterpretation of CBC data. Current Interpretive Data was last revised on 2017. Eosinophil pct 0.5 % [facility] Comment: Interpretive Data Percent cell count reference ranges are not reported, since discordance with absolute values may lead to misinterpretation of CBC data. Current Interpretive Data was last revised on 2017. Basophil pct 0.3 % [facility] Comment: Interpretive Data Percent cell count reference ranges are not reported, since discordance with absolute values may lead to misinterpretation of CBC data. Current Interpretive Data was last revised on 2017. Blood 10/18/2024 2:10 PM PRECISION THREAD GRINDER OPERATOR 10/18/2024 2:14 PM PRECISION THREAD GRINDER OPERATOR us Chanel Kelley NP LAB BLOOD ORDERABLES Final Result [facility] Department [place] [address] * (ABNORMAL) CBC with auto differential (10/18/2024 2:10 PM PRECISION THREAD GRINDER OPERATOR) WBC 5.8 3.8 - 9.9 K/cumm Hgb 11.7(L) 11.9 - 15.5 g/dL [facility] Hct 34.6(L) 35.6 - 45.5 % [facility] Plt 202 150 - 400 K/cumm [facility] MPV 9.9 9.1 - 12.3 fL [facility] RBC 3.83(L) 3.90 - 5.20 M/cumm [facility] MCV 90.3 81.3 - 96.4 fL [facility] MCH 30.5 27.1 - 33.3 pg [facility] MCHC 33.8 32.3 - 35.7 g/dL [facility] RDW CV 13.6 11.1 - 14.9 % [facility] RDW SD 45.2 35.7 - 48.1 fL [facility] NRBC abs 0.00 0.00 - 0.01 K/cumm [facility] Blood 10/18/2024 2:10 PM PRECISION THREAD GRINDER OPERATOR 10/18/2024 2:14 PM PRECISION THREAD GRINDER OPERATOR Chanel Kelley NP LAB BLOOD ORDERABLES Final Result Performing Organization Address City/[facility] de Phone Number [facility] [place] [address] * (ABNORMAL) aPTT (10/18/2024 2:10 PM PRECISION THREAD GRINDER OPERATOR) [facility] aPTT 66(H) 28 - 38 sec Comment: Interpretive Data Heparin therapeutic range: 66.0 - 100.0 seconds. Range based on correlation with therapeutic heparin activity range of 0.3 - 0.7 Units/mL. Current interpretive data was last revised on 2023. Blood 10/18/2024 2:10 PM PRECISION THREAD GRINDER OPERATOR 10/18/2024 2:14 PM PRECISION THREAD GRINDER OPERATOR Chanel Kelley NP LAB BLOOD ORDERABLES Final Result Performing Organization Address [facility] Co de Phone Number [facility] [place] [address] * (ABNORMAL) Protime-INR (10/18/2024 2:10 PM PRECISION THREAD GRINDER OPERATOR) [facility] PT 13.1(H) 9.7 - 13.0 sec INR 1.21(H) 0.90 - 1.20 [facility] Comment: Interpretive data Oral anticoagulant therapeutic ranges: Venous thromboembolism prophylaxis or treatment: 2.0-3.0 CARDIOLOGY Standard range: 2.0-3.0 High-intensity range: 2.5-3.5 Refer to indication-specific guidelines for appropriate target ranges for prosthetic heart valve replacement. Current interpretive data was last revised on 2019. Blood 10/18/2024 2:10 PM PRECISION THREAD GRINDER OPERATOR 10/18/2024 2:14 PM PRECISION THREAD GRINDER OPERATOR Chanel Kelley NP LAB BLOOD ORDERABLES Final Result Performing Organization Address [facility] de Phone Number [facility] Department [place] [address] * Magnesium (10/18/2024 2:10 PM PRECISION THREAD GRINDER OPERATOR) [facility] Magnesium 1.9 1.4 - 2.5 mg/dL Blood 10/18/2024 2:10 PM PRECISION THREAD GRINDER OPERATOR 10/18/2024 2:14 PM PRECISION THREAD GRINDER OPERATOR Chanel Kelley NP LAB BLOOD ORDERABLES Final Result Performing Organization Address [facility] de Phone Number [facility] Department [place] [address] * (ABNORMAL) Comprehensive metabolic panel (10/18/2024 2:10 PM PRECISION THREAD GRINDER OPERATOR) [facility] Sodium 142 135 - 145 mmol/L Potassium, pl 4.2 3.3 - 4.9 mmol/L [facility] Chloride 108 97 - 110 mmol/L [facility] CO2 24 22 - 32 mmol/L [facility] Anion gap 10 2 - 15 mmol/L [facility] BUN 20 6 - 25 mg/dL [facility] Creatinine 0.93 0.60 - 1.10 mg/dL [facility] Glucose 123 70 - 199 mg/dL [facility] Comment: Interpretive Data Fasting glucose >/= 126 [...] 2022. Calcium 9.2 8.5 - 10.3 mg/dL [facility] Bilirubin, total 0.5 0.1 - 1.2 mg/dL [facility] Protein, pl 6.6 6.5 - 8.5 g/dL [facility] Albumin 4.0 3.5 - 5.0 g/dL [facility] Alk phos 78 40 - 130 Units/L [facility] ALT 20 7 - 45 Units/L [facility] AST 50(H) 10 - 45 Units/L [facility] Blood 10/18/2024 2:10 PM PRECISION THREAD GRINDER OPERATOR 10/18/2024 2:14 PM PRECISION THREAD GRINDER OPERATOR us Chanel Kelley NP LAB BLOOD ORDERABLES Final Result Performing Organization Address City/State/[facility] Co de Phone Number [facility] Department [place] [address] * ECG 12 lead (10/18/2024 1:57 PM PRECISION THREAD GRINDER OPERATOR) Pathologist [facility] Ventricular Rate EKG/Min 88 BPM [facility] Atrial Rate 88 BPM [facility] VA-Interval (MSEC) 162 ms [facility] QRS-Interval (MSEC) 112 ms [facility] QT-Interval (MSEC) 402 ms [facility] QTc 486 ms [facility] P [place] 60 degrees [facility] R [place] 69 degrees [facility] T [place] -27 degrees [facility] Diagnosis Normal sinus rhythm Incomplete right bundle branch block ST & T wave abnormality, consider inferior ischemia ST & T wave abnormality, consider anterior ischemia Prolonged QT Abnormal ECG When compared with ECG of 16-OCT-2024 11:26, Right bundle branch block is new Confirmed by MARV GARCIA M.D ([id number]) on 10/18/2024 4:04:39 PM [facility] [employer] 10/18/2024 1:57 PM PRECISION THREAD GRINDER OPERATOR 10/18/2024 4:04 PM PRECISION THREAD GRINDER OPERATOR us Chanel Kelley NP ECG ORDERABLES Final Resul t [facility] [employer] [facility] * TRANSCATHETER TRICUSPID VALVE IMPLANT, INTRACARDIAC ECHOCARDIOGRAM (10/18/2024 1:40 PM PRECISION THREAD GRINDER OPERATOR) Anatomical Region Laterality Modality X-Ray Angiograph y Narrative 10/18/2024 2:46 PM PRECISION THREAD GRINDER OPERATOR Cardiac Catheterization Transcatheter Tricuspid Valve Replacement Name: [...] Perioperative antibiotics TTE in AM Transfer to [facility] Irasema Valdez MD materials planning manager Co-Deck Engineer of Valvular Heart Disease us Cristhian Rodgers MD CV CARDIAC CATH PROCEDURES Fi nal Result * NADINE Guidance During Cardiac Structural Int[place] 04200 (10/18/2024 1:30 PM PRECISION THREAD GRINDER OPERATOR) LV EF % CONS SCIMAGE BSA 1.64 m2 CONS SCIMAGE Anatomical Region Laterality Modality Echocardiography 10/18/2024 11:3 7 AM PRECISION THREAD GRINDER OPERATOR Narrative 10/18/2024 3:47 PM PRECISION THREAD GRINDER OPERATOR [facility] [place] [address] Transesophageal Echocardiographic Report Patient Name: STACY HERRON : 1945 (79y 9m) Gender: F Study Date: 10/18/2024 11:37:56 AM Ht(Inch): Wt(Lb): BSA: Supervisor Cutting Department: Location: 5637 Order Provider: DEBORAH STACY BMI: Quality: Good Ref Provider: DEBORAH STACY PROCEDURES: Transesophageal Echo Report: [id number] Echocardiography, transesophageal (NADINE) for guidance of a [...] anesthesia. The probe was passed by the system support analyst. Standard views were obtained in the transgastric, [...] By: Deborah Stacy MD 10/18/2024 3:46:36 PM PRECISION THREAD GRINDER OPERATOR Electronically Signed By: Deborah Stacy MD 10/18/2024 3:46:36 PM PRECISION THREAD GRINDER OPERATOR Procedure Note Deborah Stacy MD - 10/18/2024 [facility] [place] [address] Transesophageal Echocardiographic Report Patient Name: STACY HERRON : 1945 (79y 9m) Gender: F Study Date: 10/18/2024 11:37:56 AM Ht(Inch): Wt(Lb): BSA: Supervisor Cutting Department: Location: 5637 Order Provider: DEBORAH STACY BMI: Quality: Good Ref Provider: DEBORAH STACY PROCEDURES: Transesophageal Echo Report: [id number] Echocardiography, transesophageal (NADINE)for guidance of a transcatheter [...] anesthesia. The probe was passed by the system support analyst. Standardviews were obtained in the transgastric, mid [...] the tricuspid valve along with intraprocedural guidance [id number]. Structral NADINE performed to guide TTVR: [...] By: Deborah Stacy MD 10/18/2024 3:46:36 PM PRECISION THREAD GRINDER OPERATOR Electronically Signed By: Deborah Stacy MD 10/18/2024 3:46:36 PM PRECISION THREAD GRINDER OPERATOR us Deborah Stacy MD CV ECHO PROCEDURES Final Resul t * (ABNORMAL) POCT Activated clotting time, low range (10/18/2024 12:52 PM PRECISION THREAD GRINDER OPERATOR) ACT 316(H) 123 - 168 sec POC Performer [id number] [facility] POC Device Number [id number] [facility] Blood 10/18/2024 12:5 2 PM PRECISION THREAD GRINDER OPERATOR 10/18/2024 12:52 PM PRECISION THREAD GRINDER OPERATOR Cristhian Rodgers MD LAB POCT ORDERABLES - DEVICE Final Result Performing Organization Address [facility] Co de Phone Number [facility] [place] [address] * (ABNORMAL) POCT Activated clotting time, low range (10/18/2024 12:27 PM PRECISION THREAD GRINDER OPERATOR) ACT 289(H) 123 - 168 sec POC Performer [id number] [facility] POC Device Number [id number] [facility] Blood 10/18/2024 12:2 7 PM PRECISION THREAD GRINDER OPERATOR 10/18/2024 12:27 PM PRECISION THREAD GRINDER OPERATOR Cristhian Rodgers MD LAB POCT ORDERABLES - DEVICE Final Result Performing Organization Address [facility] de Phone Number [facility] [place] [address] * (ABNORMAL) POCT Activated clotting time, low range (10/18/2024 12:19 PM PRECISION THREAD GRINDER OPERATOR) ACT 223(H) 123 - 168 sec POC Performer [id number] [facility] POC Device Number [id number] [facility] Blood 10/18/2024 12:1 9 PM PRECISION THREAD GRINDER OPERATOR 10/18/2024 12:19 PM PRECISION THREAD GRINDER OPERATOR Cristhian Rodgers MD LAB POCT ORDERABLES - DEVICE Final Result Performing Organization Address City/[facility] Co de Phone Number [facility] [place] [address] * VA AN PROCEDURE PLACEHOLDER (10/18/2024 11:32 AM PRECISION THREAD GRINDER OPERATOR) Chanelle Edmonds MD - 10/18/2024 11:32 AM PRECISION THREAD GRINDER OPERATOR Chanelle Doyle MD 10/18/2024 11:32 AM Arterial Line Patient location: [place] Indication: continuous blood pressure monitoring and blood sampling needed Staff: Supervising provider: Chanelle Doyle MD Placed by: ADULT SPECIALIST: Janice Springer CRNA Procedure prep: Prep solution: [...] MD ANESTHESIA ORDERABLES F inal Result * VA AN ELECTIVE ENDOTRACHEAL AIRWAY, VA AN PROCEDURE PLACEHOLDER (10/18/2024 11:32 AM PRECISION THREAD GRINDER OPERATOR) Chanelle Edmonds MD - 10/18/2024 11:32 AM PRECISION THREAD GRINDER OPERATOR Chanelle Doyle MD 10/18/2024 11:32 AM Airway [...] Result * POCT glucose (10/18/2024 10:42 AM PRECISION THREAD GRINDER OPERATOR) Glucose, POC 99 70 - 199 mg/dL Blood 10/18/2024 10:4 2 AM PRECISION THREAD GRINDER OPERATOR 10/18/2024 10:42 AM PRECISION THREAD GRINDER OPERATOR us Griselda Scruggs MD LAB POCT ORDERABLES - DEVICE Fi nal Result Performing Organization Address City/[facility]/ZIP Co de Phone Number [facility] Department [place] [address] * Check Sample (10/18/2024 10:40 AM PRECISION THREAD GRINDER OPERATOR) ABO Rh B Positive [facility] OTHER 10/18/2024 10:4 0 AM PRECISION THREAD GRINDER OPERATOR 10/18/2024 10:51 AM PRECISION THREAD GRINDER OPERATOR us Cristhian Rodgers MD LAB BLOOD ORDERABLES Final Re sult Performing Organization Address City/[facility] Co de Phone Number [facility] Department [place] [address] [facility] * Prepare RBC: 4 Units (10/18/2024 10:25 AM PRECISION THREAD GRINDER OPERATOR) Product code [id number] Unit Number [id number] 4-E [facility] Product Blood Type BPOS [facility] Dispense Status RETURNED [facility] Product code [id number] [facility] Unit Number [id number] 3-P C[facility]ER [facility] Product Blood Type BPOS [facility] Dispense Status RETURNED [facility] Product code [id number] [facility] Unit Number [id number] 5-P [facility]ER [facility] Product Blood Type BPOS [facility] Dispense Status RETURNED [facility] Product code [id number] [facility] Unit Number [id number] 2-5 [facility] Product Blood Type BPOS [facility] 10/18/2024 10:2 5 AM PRECISION THREAD GRINDER OPERATOR 10/18/2024 10:24 AM PRECISION THREAD GRINDER OPERATOR Narrative [facility] - 10/18/2024 2:34 PM PRECISION THREAD GRINDER OPERATOR Specify Procedure:->transcatheter tricuspic valve implant Are special requirements needed? (All products are leukoreduced and CMV- safe)->No Julieta Gamino DRIVE THRU ORDER TAKER BLOOD BANK PRODUCT OR DERABLES Final Result Performing Organization Address City/[facility] Co de Phone Number [facility] Department [place] [address] * (ABNORMAL) eGFR (10/18/2024 3:48 AM PRECISION THREAD GRINDER OPERATOR) eGFR 45(L) >=60 mL/min/1. 73 m2 Comment: [...] last reviewed 2021. Blood 10/18/2024 3:48 AM PRECISION THREAD GRINDER OPERATOR 10/18/2024 4:44 AM PRECISION THREAD GRINDER OPERATOR us Griselda Scruggs MD LAB BLOOD ORDERABLES Final Resu lt Performing Organization Address City/[facility]/ZIP Co de Phone Number [facility] Department [place] [address] * Differential, auto (10/18/2024 3:48 AM PRECISION THREAD GRINDER OPERATOR) Neutrophil abs 3.1 1.5 - 6.5 K/cumm Imm gran abs 0.0 0.0 - 0.1 K/cumm [facility] Lymphocyte abs 1.5 0.8 - 3.3 K/cumm [facility] Monocyte abs 0.5 0.2 - 0.8 K/cumm [facility] Eosinophil abs 0.1 0.0 - 0.5 K/cumm [facility] Basophil abs 0.0 0.0 - 0.1 K/cumm [facility] Neutrophil pct 59.6 % [facility] Comment: Interpretive Data Percent cell count reference ranges are not reported, since discordance with absolute values may lead to misinterpretation of CBC data. Current Interpretive Data was last revised on 2017. Imm gran pct 0.2 % [facility] Comment: Interpretive Data Percent cell count reference ranges are not reported, since discordance with absolute values may lead to misinterpretation of CBC data. Current Interpretive Data was last revised on 2017. Lymphocyte pct 28.6 % [facility] Comment: Interpretive Data Percent cell count reference ranges are not reported, since discordance with absolute values may lead to misinterpretation of CBC data. Current Interpretive Data was last revised on 2017. Monocyte pct 9.9 % [facility] Comment: Interpretive Data Percent cell count reference ranges are not reported, since discordance with absolute values may lead to misinterpretation of CBC data. Current Interpretive Data was last revised on 2017. Eosinophil pct 1.3 % [facility] Comment: Interpretive Data Percent cell count reference ranges are not reported, since discordance with absolute values may lead to misinterpretation of CBC data. Current Interpretive Data was last revised on 2017. Basophil pct 0.4 % [facility] Comment: Interpretive Data Percent cell count reference ranges are not reported, since discordance with absolute values may lead to misinterpretation of CBC data. Current Interpretive Data was last revised on 2017. Blood 10/18/2024 3:48 AM PRECISION THREAD GRINDER OPERATOR 10/18/2024 4:44 AM PRECISION THREAD GRINDER OPERATOR Griselda Scruggs MD LAB BLOOD ORDERABLES Final Resu lt Performing Organization Address [facility] Co de Phone Number [facility] [place] [address] * (ABNORMAL) CBC with auto differential (10/18/2024 3:48 AM PRECISION THREAD GRINDER OPERATOR) [facility] WBC 5.3 3.8 - 9.9 K/cumm Hgb 11.9 11.9 - 15.5 g/dL [facility] Hct 35.5(L) 35.6 - 45.5 % [facility] Plt 226 150 - 400 K/cumm [facility] MPV 10.0 9.1 - 12.3 fL [facility] RBC 3.94 3.90 - 5.20 M/cumm [facility] MCV 90.1 81.3 - 96.4 fL [facility] MCH 30.2 27.1 - 33.3 pg [facility] MCHC 33.5 32.3 - 35.7 g/dL [facility] RDW CV 13.7 11.1 - 14.9 % [facility] RDW SD 45.1 35.7 - 48.1 fL [facility] NRBC abs 0.00 0.00 - 0.01 K/cumm [facility] Blood 10/18/2024 3:48 AM PRECISION THREAD GRINDER OPERATOR 10/18/2024 4:44 AM PRECISION THREAD GRINDER OPERATOR Griselda Scruggs MD LAB BLOOD ORDERABLES Final Resu lt Performing Organization Address [facility] Co de Phone Number [facility] Department [place] [address] * Protime-INR (10/18/2024 3:48 AM PRECISION THREAD GRINDER OPERATOR) [facility] PT 11.6 9.7 - 13.0 sec INR 1.07 0.90 - 1.20 [facility] Comment: Interpretive data Oral anticoagulant therapeutic ranges: Venous thromboembolism prophylaxis or treatment: 2.0-3.0 CARDIOLOGY Standard range: 2.0-3.0 High-intensity range: 2.5-3.5 Refer to indication-specific guidelines for appropriate target ranges for prosthetic heart valve replacement. Current interpretive data was last revised on 2019. Blood 10/18/2024 3:48 AM PRECISION THREAD GRINDER OPERATOR 10/18/2024 4:51 AM PRECISION THREAD GRINDER OPERATOR Griselda Scruggs MD LAB BLOOD ORDERABLES Final Resu lt Performing Organization Address [facility] de Phone Number [facility] [place] [address] * Phosphorus (10/18/2024 3:48 AM PRECISION THREAD GRINDER OPERATOR) Pathologist [facility] Phosphorus, pl 4.3 2.3 - 4.5 mg/dL Blood 10/18/2024 3:48 AM PRECISION THREAD GRINDER OPERATOR 10/18/2024 4:44 AM PRECISION THREAD GRINDER OPERATOR Griselda Scruggs MD LAB BLOOD ORDERABLES Final Resu lt Performing Organization Address [facility] de Phone Number [facility] [place] [address] * Magnesium (10/18/2024 3:48 AM PRECISION THREAD GRINDER OPERATOR) [facility] Magnesium 2.0 1.4 - 2.5 mg/dL Blood 10/18/2024 3:48 AM PRECISION THREAD GRINDER OPERATOR 10/18/2024 4:44 AM PRECISION THREAD GRINDER OPERATOR Griselda Scruggs MD LAB BLOOD ORDERABLES Final Resu lt Performing Organization Address [facility] de Phone Number [facility] [place] [address] * (ABNORMAL) Basic metabolic panel (10/18/2024 3:48 AM PRECISION THREAD GRINDER OPERATOR) Pathologist [facility] Sodium 141 135 - 145 mmol/L Potassium, pl 3.7 3.3 - 4.9 mmol/L [facility] Chloride 103 97 - 110 mmol/L [facility] CO2 27 22 - 32 mmol/L [facility] Anion gap 11 2 - 15 mmol/L [facility] BUN 26(H) 6 - 25 mg/dL [facility] Creatinine 1.23(H) 0.60 - 1.10 mg/dL [facility] Glucose 103 70 - 199 mg/dL [facility] Comment: Interpretive Data Fasting glucose >/= 126 [...] 2022. Calcium 9.8 8.5 - 10.3 mg/dL [facility] Blood 10/18/2024 3:48 AM PRECISION THREAD GRINDER OPERATOR 10/18/2024 4:44 AM PRECISION THREAD GRINDER OPERATOR us Griselda Scruggs MD LAB BLOOD ORDERABLES Final Resu lt [facility] Department [place] [address] * eGFR (10/17/2024 4:08 AM PRECISION THREAD GRINDER OPERATOR) eGFR 60 >=60 mL/min/1. 73 m2 Comment: [...] last reviewed 2021. Blood 10/17/2024 4:08 AM PRECISION THREAD GRINDER OPERATOR 10/17/2024 5:29 AM PRECISION THREAD GRINDER OPERATOR Griselda Redding MD LAB BLOOD ORDERABLES Final Resul t Performing Organization Address [facility] Co de Phone Number [facility] [place] [address] * (ABNORMAL) CBC without differential (10/17/2024 4:08 AM PRECISION THREAD GRINDER OPERATOR) WBC 3.5(L) 3.8 - 9.9 K/cumm Hgb 11.6(L) 11.9 - 15.5 g/dL [facility] Hct 34.2(L) 35.6 - 45.5 % [facility] Plt 205 150 - 400 K/cumm [facility] MPV 10.2 9.1 - 12.3 fL [facility] RBC 3.81(L) 3.90 - 5.20 M/cumm [facility] MCV 89.8 81.3 - 96.4 fL [facility] MCH 30.4 27.1 - 33.3 pg [facility] MCHC 33.9 32.3 - 35.7 g/dL [facility] RDW CV 14.0 11.1 - 14.9 % [facility] RDW SD 45.9 35.7 - 48.1 fL [facility] NRBC abs 0.00 0.00 - 0.01 K/cumm [facility] Blood 10/17/2024 4:08 AM PRECISION THREAD GRINDER OPERATOR 10/17/2024 5:30 AM PRECISION THREAD GRINDER OPERATOR Griselda Redding MD LAB BLOOD ORDERABLES Final Resul t Performing Organization Address [facility] Co de Phone Number [facility] Department [place] [address] * Comprehensive metabolic panel (10/17/2024 4:08 AM PRECISION THREAD GRINDER OPERATOR) Sodium 142 135 - 145 mmol/L Potassium, pl 4.3 3.3 - 4.9 mmol/L [facility] Chloride 108 97 - 110 mmol/L [facility] CO2 27 22 - 32 mmol/L [facility] Anion gap 7 2 - 15 mmol/L [facility] BUN 22 6 - 25 mg/dL [facility] Creatinine 0.97 0.60 - 1.10 mg/dL [facility] Glucose 95 70 - 199 mg/dL [facility] Comment: Interpretive Data Fasting glucose >/= 126 [...] 2022. Calcium 9.5 8.5 - 10.3 mg/dL [facility] Bilirubin, total 0.7 0.1 - 1.2 mg/dL [facility] Protein, pl 6.6 6.5 - 8.5 g/dL [facility] Albumin 4.0 3.5 - 5.0 g/dL [facility] Alk phos 81 40 - 130 Units/L [facility] ALT 18 7 - 45 Units/L [facility] AST 20 10 - 45 Units/L [facility] Blood 10/17/2024 4:08 AM PRECISION THREAD GRINDER OPERATOR 10/17/2024 5:29 AM PRECISION THREAD GRINDER OPERATOR us Griselda Redding MD LAB BLOOD ORDERABLES Final Resul t [facility] Department [place] [address] * TYPE AND SCREEN 14 DAY (10/16/2024 12:11 PM PRECISION THREAD GRINDER OPERATOR) Miguel, indirect Negative ABO Rh B Positive [facility] Blood 10/16/2024 12:1 1 PM PRECISION THREAD GRINDER OPERATOR 10/16/2024 12:52 PM PRECISION THREAD GRINDER OPERATOR Narrative [facility] - 10/16/2024 2:57 PM PRECISION THREAD GRINDER OPERATOR Is this test being ordered in advance for a procedure?->Yes Expected date of procedure:->10/18/24 Has the patient been transfused in the past 3 months?->No Has the patient been in the past 3 months?->No Julieta Gamino NP LAB BLOOD BANK TEST O RDERABLES Final Result [facility] Department [place] [address] * eGFR (10/16/2024 12:11 PM PRECISION THREAD GRINDER OPERATOR) eGFR 63 >=60 mL/min/1. 73 m2 Comment: [...] reviewed 2021. Blood 10/16/2024 12:1 1 PM PRECISION THREAD GRINDER OPERATOR 10/16/2024 12:53 PM PRECISION THREAD GRINDER OPERATOR Julieta Sheila [address] THRU ORDER TAKER LAB BLOOD ORDERABLES Final Result [facility] Department [place] [address] * Differential, auto (10/16/2024 12:11 PM PRECISION THREAD GRINDER OPERATOR) Neutrophil abs 3.5 1.5 - 6.5 K/cumm Imm gran abs 0.0 0.0 - 0.1 K/cumm [facility] Lymphocyte abs 1.6 0.8 - 3.3 K/cumm [facility] Monocyte abs 0.5 0.2 - 0.8 K/cumm [facility] Eosinophil abs 0.1 0.0 - 0.5 K/cumm [facility] Basophil abs 0.0 0.0 - 0.1 K/cumm [facility] Neutrophil pct 60.2 % [facility] Comment: Interpretive Data Percent cell count reference ranges are not reported, since discordance with absolute values may lead to misinterpretation of CBC data. Current Interpretive Data was last revised on 2017. Imm gran pct 0.3 % [facility] Comment: Interpretive Data Percent cell count reference ranges are not reported, since discordance with absolute values may lead to misinterpretation of CBC data. Current Interpretive Data was last revised on 2017. Lymphocyte pct 28.3 % [facility] Comment: Interpretive Data Percent cell count reference ranges are not reported, since discordance with absolute values may lead to misinterpretation of CBC data. Current Interpretive Data was last revised on 2017. Monocyte pct 9.3 % [facility] Comment: Interpretive Data Percent cell count reference ranges are not reported, since discordance with absolute values may lead to misinterpretation of CBC data. Current Interpretive Data was last revised on 2017. Eosinophil pct 1.4 % [facility] Comment: Interpretive Data Percent cell count reference ranges are not reported, since discordance with absolute values may lead to misinterpretation of CBC data. Current Interpretive Data was last revised on 2017. Basophil pct 0.5 % [facility] Comment: Interpretive Data Percent cell count reference ranges are not reported, since discordance with absolute values may lead to misinterpretation of CBC data. Current Interpretive Data was last revised on 2017. Blood 10/16/2024 12:1 1 PM PRECISION THREAD GRINDER OPERATOR 10/16/2024 12:53 PM PRECISION THREAD GRINDER OPERATOR Julieta Stubbsurmila Gamino LAB BLOOD ORDERABLES Final Result Performing Organization Address [facility] [place] [address] * CPAP aPTT algorithm (10/16/2024 12:11 PM PRECISION THREAD GRINDER OPERATOR) aPTT 30 28 - 38 sec Comment: Interpretive Data Heparin therapeutic range: 66.0 - 100.0 seconds. Range based on correlation with therapeutic heparin activity range of 0.3 - 0.7 Units/mL. Current interpretive data was last revised on 2023. Blood 10/16/2024 12:1 1 PM PRECISION THREAD GRINDER OPERATOR 10/16/2024 12:11 PM PRECISION THREAD GRINDER OPERATOR Julieta Sheila Gamino LAB BLOOD ORDERABLES Final Result Performing Organization Address [facility] de Phone Number [facility] [place] [address] * (ABNORMAL) Urinalysis reflex to microscopic and culture Urine, clean voided (10/16/2024 12:11 PM PRECISION THREAD GRINDER OPERATOR) Color, ur Straw Yellow Clarity, ur Clear Clear [facility] Specific gravity, ur 1.014 1.003 - 1.030 [facility] pH, urine 6.5 [facility] Comment: Interpretive Data U rine pH is affected by diet, medications, systemic acid-base disturbances, and renal tubular function. pH may affect urinary stone formation. For example, urine pH below 6.0 may help reduce the tendency for calcium phosphate stones and pH greater than 6.0 may reduce the tendency for uric acid stone formation. Source: [facility] Current Interpretive Data was last revised on 2017 Protein, ur ql Negative Negative [facility] Glucose, ur ql Negative Negative [facility] Ketones, ur Negative Negative [facility] Bilirubin, ur Negative Negative [facility] Blood, ur Negative Negative [facility] Urobilinogen, ur <2.0 <2.0 mg/dL [facility] Nitrite, ur Negative Negative [facility] Leukocyte esterase, ur 1+(A) Negative [facility] UA reflex comment Reflex to microscopic UA will be performed. [facility] Urine, clean voided 10/16/2024 12:11 PM PRECISION THREAD GRINDER OPERATOR 10/16/2024 12:48 PM PRECISION THREAD GRINDER OPERATOR Julieta Gamino DRIVE THRU ORDER TAKER LAB MICROBIOLOGY - NERAL ORDERABLES Final Result [facility] Department [place] [address] * CBC with auto differential (10/16/2024 12:11 PM PRECISION THREAD GRINDER OPERATOR) WBC 5.8 3.8 - 9.9 K/cumm Hgb 13.3 11.9 - 15.5 g/dL [facility] Hct 40.2 35.6 - 45.5 % [facility] Plt 284 150 - 400 K/cumm [facility] MPV 10.4 9.1 - 12.3 fL [facility] RBC 4.38 3.90 - 5.20 M/cumm [facility] MCV 91.8 81.3 - 96.4 fL [facility] MCH 30.4 27.1 - 33.3 pg [facility] MCHC 33.1 32.3 - 35.7 g/dL [facility] RDW CV 13.8 11.1 - 14.9 % [facility] RDW SD 47.0 35.7 - 48.1 fL [facility] NRBC abs 0.00 0.00 - 0.01 K/cumm [facility] Blood 10/16/2024 12:1 1 PM PRECISION THREAD GRINDER OPERATOR 10/16/2024 12:53 PM PRECISION THREAD GRINDER OPERATOR Julieta Gamino NP LAB BLOOD ORDERABLES Final Result [facility] [place] [address] * (ABNORMAL) Urinalysis, microscopic only (10/16/2024 12:11 PM PRECISION THREAD GRINDER OPERATOR) WBC, ur 6-10(A) 0 - 5 /HPF RBC, ur 0-2 0 - 2 /HPF [facility] Epithelial cells, renal, ur 1-5(A) 0 - 0 /HPF [facility] Mucous, ur Present(A) [facility] Culture Reflex Comment Reflex conditions for urine culture (WBC >10) not met. [facility] Urine, clean voided 10/16/2024 12:11 PM PRECISION THREAD GRINDER OPERATOR 10/16/2024 12:48 PM PRECISION THREAD GRINDER OPERATOR Julieta Gamino NP LAB URINE ORDERABLES Final Result Performing Organization Address [facility] [place] [address] * Protime-INR (10/16/2024 12:11 PM PRECISION THREAD GRINDER OPERATOR) Pathologist [facility] PT 11.3 9.7 - 13.0 sec INR 1.05 0.90 - 1.20 [facility] Comment: Interpretive data Oral anticoagulant therapeutic ranges: Venous thromboembolism prophylaxis or treatment: 2.0-3.0 CARDIOLOGY Standard range: 2.0-3.0 High-intensity range: 2.5-3.5 Refer to indication-specific guidelines for appropriate target ranges for prosthetic heart valve replacement. Current interpretive data was last revised on 2019. Blood 10/16/2024 12:1 1 PM PRECISION THREAD GRINDER OPERATOR 10/16/2024 12:11 PM PRECISION THREAD GRINDER OPERATOR Julieta Gamino NP LAB BLOOD ORDERABLES Final Result Performing Organization Address [facility] de Phone Number [facility] [place] [address] * (ABNORMAL) Comprehensive metabolic panel (10/16/2024 12:11 PM PRECISION THREAD GRINDER OPERATOR) Sodium 141 135 - 145 mmol/L Potassium, pl 4.6 3.3 - 4.9 mmol/L [facility] Chloride 100 97 - 110 mmol/L [facility] CO2 29 22 - 32 mmol/L [facility] Anion gap 12 2 - 15 mmol/L [facility] BUN 18 6 - 25 mg/dL [facility] Creatinine 0.93 0.60 - 1.10 mg/dL [facility] Glucose 93 70 - 199 mg/dL [facility] Comment: Interpretive Data Fasting glucose >/= 126 [...] 2022. Calcium 10.6(H) 8.5 - 10.3 mg/dL [facility] Bilirubin, total 0.6 0.1 - 1.2 mg/dL [facility] Protein, pl 7.9 6.5 - 8.5 g/dL [facility] Albumin 4.8 3.5 - 5.0 g/dL [facility] Alk phos 98 40 - 130 Units/L [facility] ALT 23 7 - 45 Units/L [facility] AST 28 10 - 45 Units/L [facility] Blood 10/16/2024 12:1 1 PM PRECISION THREAD GRINDER OPERATOR 10/16/2024 12:53 PM PRECISION THREAD GRINDER OPERATOR Julieta Gamino NP LAB BLOOD ORDERABLES Final Result [facility] Department [place] [address] * ECG 12 lead (10/16/2024 11:26 AM PRECISION THREAD GRINDER OPERATOR) Ventricular Rate EKG/Min 68 BPM [facility] Atrial Rate 68 BPM [facility] VA-Interval (MSEC) 168 ms [facility] QRS-Interval (MSEC) 76 ms [facility] QT-Interval (MSEC) 398 ms [facility] QTc 423 ms [facility] P [place] 64 degrees [facility] R [place] 43 degrees [facility] T [place] 47 degrees [facility] Diagnosis Normal sinus rhythm Normal ECG When compared with ECG of 11-MAY-2024 08:19, no significant change Confirmed by MARV GARCIA M.D ([id number]) on 10/16/2024 1:39:42 PM [facility] 10/16/2024 11:2 6 AM PRECISION THREAD GRINDER OPERATOR 10/16/2024 1:39 PM PRECISION THREAD GRINDER OPERATOR us Julieta Gamino NP ECG ORDERABLES Final Result [facility] * COLONOSCOPY (11/12/2020 12:00 PM PRECISION THREAD GRINDER OPERATOR) Anatomical Region Laterality Modality Other Narrative Procedure Note Paz Mejias MD - 11/12/2020 12:00 PM [facility] Patient Name: Stacy Herron Procedure Date: 11/12/2020 12:00 PM Date of : 1945 Admit Type: Outpatient Age: 75 Gender: Female Attending MD: Brandt Gunter Room: [facility] ENDOSCOPY ROOM 3 Note Status: Finalized Procedure: [...] The scope was passed under direct vision.The [id number] endoscope was introduced through the anus and advanced to the terminal ileum. The colonoscopy was performed without difficulty. The patient tolerated the procedure well. The qualityof the bowel preparation was evaluated using the BBPS (Hasty Bowel Preparation Scale) with scores of:Right Colon [...] On: 11/12/2020 12:00 PM Recognized by the [employer] for promoting quality in endoscopy Paz Mejias MD ENDOSCOPY PROCEDUR ES Final Result from Last 3 Months or Most Recently Relevant to Health Maintenance Insurance MEDICARE AET [facility] MEDICARE [employer]ET[employer] SENIOR SUPPLEMENT [address] [place] [address] MEDICARE A[employer] SENIOR SUPPLEMENT Advance Directives For more information, please contact: [phone] Documents on File Type Date Recorded Patient Bullet Casting Operator Expl anation ADVANCE DIRECTIVE 10/23/2024 2:41 AM POWER OF MEDICAL ASSISTING INSTRUCTOR-MEDICAL ADVANCE DIRECTIVE 10/23/2024 2:41 AM LIVING WILL [...] 10:37 AM 11/12/2020 5:37 PM Care Teams Plating Equipment Tender Relationship Specialty Start Date End Date Praveena Mcfarland MD [address] [place] [address] PCP - General Internal Medicine 10/11/19 Paul Lopez MD [address] [place] [id number] 10/11/19 Paz Mejias MD [address] [place] [address] Deck Engineer Gastroenterology 09/07/22 Hayden Huffman III, MD [address] [place] [address] Before School Babysitter Cardiology 12/14/22 Herson Elam MD [address] [place] [address] [place] [address] Surgeon Orthopedic Surgery 11/22/23 Gee Carrasco MD [address] [place] [address] [place] [address] Referring Physician Cardiology 02/29/24 Irasema Valdez MD [address] [place] [address] [place] [address] Before School Babysitter Cardiology 05/15/24 Cristhian Rodgers MD [address] [id number] [place] [address] Cardiothoracic Surgery 10/20/24 Bill Tovar MD [address] [id number] [place] [address] Surgeon Colon and Rectal Surgery 11/15/24
--- OUTSIDE RECORDS SUMMARY | 2024-12-03 13:58 | XMS_ITS | Clinical Summary ---
Author Organization [facility] Address [address] [place] [address] Care Team Providers Care Renal Dialysis Technician Name Role Phone Praveena Mcfarland MD Primary Care Provider Paul Lopez MD Unavailable [phone] Paz Mejias MD Unavailable + Nathanael VALERIO MD, Hayden Singh Unavailable Herson Elam MD Unavailable [phone] Gee Carrasco MD Unavailable [phone] Irasema Valdez MD Unavailable [phone] Cristhian Rodgers MD Unavailable Bill Tovar [...] 10/19/2024 Assessment & Plan (10/19/2024 11:13 AM AERONAUTICAL ENGINEERING OFFICER): - continue Simvastatin - low fat low cholesterol diet S/P tricuspid valve replacement 10/18/2024 Assessment & Plan (10/19/2024 11:09 AM AERONAUTICAL ENGINEERING OFFICER): S/p TTVR 10/18 with Evoque Remove figure [...] 10/16/2024 Assessment & Plan (10/17/2024 1:57 PM AERONAUTICAL ENGINEERING OFFICER): Patient with history of symptomatic severe tricuspid [...] 05/03/2024 Assessment & Plan (10/18/2024 12:05 PM AERONAUTICAL ENGINEERING OFFICER): Goal SBP <160 Assessment & Plan (10/17/2024 1:56 PM AERONAUTICAL ENGINEERING OFFICER): Continue home propranolol, lisinopril Diastolic heart failure 05/03/2024 Assessment & Plan (10/18/2024 2:27 PM AERONAUTICAL ENGINEERING OFFICER): Acute on chronic Diuresis this admission No plans to restart milrinone post-TTVR Shortness of breath 04/30/2024 Tricuspid regurgitation, non-Ebstein's related 0 02/29/2024 Assessment & Plan (10/18/2024 12:05 PM AERONAUTICAL ENGINEERING OFFICER): TTVR 10/18 Aftercare following right knee joint replacement surgery 01/06/2024 History of colonic polyps 10/03/2020 Change in bowel habit 02/08/2020 Lactose intolerance 02/08/2020 Incontinence of feces 06/21/2018 Overview (06/21/2018): Added automatically from request for surgery [id number] Fecal incontinence 08/08/2015 Assessment & Plan (10/16/2024 9:24 PM AERONAUTICAL ENGINEERING OFFICER): 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 8th [place] [address] [place] [address] Irasema Valdez MD 11/26/2024 3:40 PM CDT Lab [facility] Endocrinology Metabolism and Lipid [address] [place] [address] [place] [address] S/P tricuspid valve replacement 11/26/2024 2:30 PM CDT Office Visit [address] [place] [address] [place] [address] S/P tricuspid valve replacement (Primary Dx); Mixed hyperlipidemia; Chronic diastolic heart failure (HCC) 11/26/2024 Orders Only [facility] Cardiology [address] [facility] Medical Office Building [address] [place] [address] Irasema Valdez MD 11/26/[address] [place] [address] Natalie Cruz RN 11/22/[address] [place] [address] [place] [address] Kady Baires 11/22/[address] [place] [address] Kady Baires 11/21/2024 Orders Only [facility] CARDIOLOGY Scanning, Provider 11/15/2024 3:00 PM AERONAUTICAL ENGINEERING OFFICER Office Visit [facility] Surgery [address] [place] [address] Medical Office Building [address] [place] [phone] Bill Tovar MD Incontinence of feces, unspecified fecal incontinence type (Primary Dx) 11/14/[address] 8th [place] [address] [place] [address] Irasema Valdez MD TAVR follow up 11/12/2024 4:02 PM AERONAUTICAL ENGINEERING OFFICER - 11/12/2024 11:59 PM AERONAUTICAL ENGINEERING OFFICER Hospital Encounter [facility] [address] [place] [address] S/P tricuspid valve replacement Discharge Disposition: Discharge to home or self care 11/12/2024 4:00 PM AERONAUTICAL ENGINEERING OFFICER Lab [facility] Endocrinology Metabolism and Lipid [address] [place] [address] [place] [address] S/P tricuspid valve replacement 11/12/2024 2:30 PM AERONAUTICAL ENGINEERING OFFICER Office Visit [facility] Cardiology [address] [place] [address] [place] [address] Shawanda Maurice NP 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] (Primary Dx); S/P tricuspid valve replacement; Primary hypertension; Mixed hyperlipidemia 11/12/2024 12:33 PM AERONAUTICAL ENGINEERING OFFICER - 11/12/2024 11:59 PM AERONAUTICAL ENGINEERING OFFICER Hospital Encounter [facility] Cardiac Diagnostic Lab [address] [place] [phone] Tricuspid regurgitation, non-Ebstein's related Discharge Disposition: Discharge to home or self care 11/12/2024 Results Follow-Up [facility] Cardiology [address] [place] [address] [place] [address] [place] [address] Irasema Valdez MD 11/12/2024 Telephone [facility] Cardiology [facility] Office Building [address] [place] [address] Carmella Mayorga CMA 11/12/2024 Results Follow-Up [facility] Cardiology [address] [place] [address] [place] [address] [place] [address] Shawanda Maurice NP 10/30/2024 Telephone [facility] Surgery Chanel Kelley NP 10/25/2024 Telephone [facility] Cardiology [address] [place] [address] [place] [address] [place] [address] Irasema Valdez MD ppwk 10/23/2024 Telephone [facility] Cardiology [address] [place] [address] [place] [address] [place] [address] Irasema Valdez MD 10/22/2024 Telephone [facility] Cardiology [address] [place] [address] 8th [place] [address] [place] [address] Irasema Valdez MD 10/22/2024 Telephone [facility] Internal Medicine Chanel Kelley NP 10/22/2024 Telephone [facility] Cardiology [address] [place] [address] 8th [place] [address] [place] [address] Prince Campo MD 10/18/2024 11:07 AM AERONAUTICAL ENGINEERING OFFICER Anesthesia Event [facility] Electrophysiology Lab [address] [place] [address] Chanelle Doyle MD Harkins, Cherice Lynette, NP 10/18/2024 11:00 AM AERONAUTICAL ENGINEERING OFFICER - 10/18/2024 2:30 PM AERONAUTICAL ENGINEERING OFFICER Surgery [facility] Electrophysiology Lab [address] [place] [address] Irasema Valdez MD Transcatheter Tricuspid Valve Implant (TTVI/TTVR) 10/16/2024 4:44 PM AERONAUTICAL ENGINEERING OFFICER - 10/20/2024 2:21 PM AERONAUTICAL ENGINEERING OFFICER Hospital Encounter [address] [address] Irasema Valdez MD Osman, Ali H., MD Khan, Ali Ayub, MD Kaneko, Tsuyoshi, MD 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] (Primary Dx); Tricuspid regurgitation, non-Ebstein's related; S/P tricuspid valve replacement Discharge Disposition: Discharge to home or self care 10/16/2024 10:30 AM AERONAUTICAL ENGINEERING OFFICER Pre-Admission Testing [facility] for Preoperative Assessment and Planning [facility] [address] [place] [address] Preoperative testing (Primary Dx); Easy bruising 10/02/2024 Telephone [facility] Cardiology [address] [place] [address] 8th [place] [address] [place] [address] Irasema Valdez MD 09/24/2024 Telephone [facility] Cardiology [address] [facility] 8th [place] [address] [place] [address] Irasema Valdez MD procedural inquiry from Last [...] on file 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:54 AM AERONAUTICAL ENGINEERING OFFICER Gender Identity Female 02/06/2020 12:07 PM CDT Sexual Orientation Not on file Obstetrics History Last Filed Vital Signs Vital Sign Reading Time Taken Comments Blood Pressure 118/74 11/26/2024 2:16 PM CDT Pulse 71 11/26/2024 2:16 PM CDT Temperature 36.4 C (97.5 F) 10/20/2024 9:37 AM AERONAUTICAL ENGINEERING OFFICER Respiratory Rate 16 10/20/2024 12:36 PM AERONAUTICAL ENGINEERING OFFICER Oxygen Saturation 94% 11/26/2024 2:16 PM CDT [...] history exists Medical Devices Implanted Type Area Communications Consultant Device Identifier Shelf Expiration Date Model / Serial / Lot [employer] Medical Ramiro Angio-Seal Vip 6fr Closere Device [id number] - [id number] - [id number] Implanted:Qty: 1 on 05/11/2024 by Irasema Valdez MD at [facility] Collagen Right: Groin [employer] Ramiro 01/01/2025 [id number] / [id number] / [id number] Medtronic Inc Neurostimulator Generator 3058 - [id number] - [id number] Implanted:Qty: 1 on 12/17/2022 by Nereyda Kemp MD at [facility] Other - see comments Left: Buttocks Medtronic Inc 12/31/2022 3058 / [id number] / NA Description:Implant pause pe rformed prior to opening implant to sterile field Medtronic Inc Interstim 28cm Quadripolar Mri Automatic Bow Maker Machine Tender Neurostimulator [id number] - Sna - [id number] Implanted:Qty: 1 on 12/17/2022 by Nereyda Kemp MD at [facility] Other - see comments Right: Sacrum Medtronic Inc 2024 [id number] / NA / [id number] Description:Implant pause pe rformed prior to opening implant to sterile field [employer] Evoque 48mm Transcatheter Tricuspid Heart Valve [id number] - [id number] - [id number] Implanted:Qty: 1 on 10/18/2024 by Irasema Valdez MD at [facility] Prosthetic Valve N/A: Tricuspid Valve [employer] 10/23/2025 [id number] / [id number] / Stimulator Stimulator Left: Hip Vagus Nerve Stimulator- 3 Implanted: 3 (Quantity not on file) Vagus Nerve Stimulator Left: Hip Medtronic [facility] Closure Repair Femoral Artery Suture Mediated Perclose Prostyle 96941-39 - [id number] - [id number] Implanted:Qty: 1 on 10/18/2024 by Irasema Valdez MD at [facility] Vascular Closure Device Left: Femoral Vein [employer] 07/19/2026 38854-18 / [id number] / [id number] [employer] V[employer] System Closure Repair Femoral Artery Suture Mediated Perclose Prostyle 00608-74 - [id number] - [id number] Implanted:Qty: 1 on 10/18/2024 by Irasema Valdez MD at [facility] Vascular Closure Device Left: Femoral Vein [employer] 07/19/2026 73381-43 / [id number] / [id number] [employer] Cement Bone High Viscosity Gentamicin Radiopaque Single Dose Hemiarthroplpasty Simplex [id number] Pmma 6195-1-010 - [id number] Implanted:Qty: 1 on 11/21/2023 by Herson Elam MD at [facility] Right: Knee [employer] 12/17/2024 6195-1-010 / / [id number] [employer] Cement Bone High Viscosity Gentamicin Radiopaque Single Dose Hemiarthroplpasty Simplex [id number] Pmma 6195-1-010 - [id number] Implanted:Qty: 1 on 11/21/2023 by Herson Elam MD at [facility] Right: Knee [employer] 12/17/2024 6195-1-010 / / [id number] [employer] Inc Attune S+ Cement Fix Bearing Knee 4 Baseplate Tibial [id number] - [id number] Implanted:Qty: 1 on 11/21/2023 by Herson Elam MD at [facility] Right: Knee [employer] Inc 04/18/2033 [id number] / / [id number] [employer] Attune Cemented Posterior Stabilize Knee Right 5 Narrow Component [id number] - [id number] Implanted:Qty: 1 on 11/21/2023 by Herson Elam MD at [facility] Right: Knee [employer] 06/18/2033 [id number] / / [id number] [employer] Attune 35mm Cemented Medialize Knee Dome Patellar Aox Sterile [id number] - [id number] Implanted:Qty: 1 on 11/21/2023 by Herson Elam MD at [facility] Right: Knee [employer] Inc 04/18/2028 [id number] / / [id number] [employer]ed[employer] Inc Attune 6mm Posterior Stabilize Fix Bearing Knee 5 Insert Tibial [id number] - [id number] Implanted:Qty: 1 on 11/21/2023 by Herson Elam MD at [facility] Right: Knee [employer] Inc 05/19/2028 [id number] / / [id number] Explanted Type Area Communications Consultant Device Identifier Shelf Expiration Date Model / Serial / Lot Medtronic Neuro 3889-28 Interstim 28cm Quadripolar Lead Neurostimulator - [id number] Implanted:Qty: 1 on 08/04/2018 by Nereyda Kemp MD at [facility] Explanted:Qty: 1 on 12/17/2022 at [facility] N/A: Back Medtronic Neuro 04/27/2022 3889-28 / / [id number] Medtronic Neuro 3058 Interstim Ii 2inx1.7in 4 Electrode Motor Polarizer Sacral Nerve - [id number] Implanted:Qty: 1 on 08/17/2018 by Nereyda Kemp MD at [facility] Explanted:Qty: 1 on 12/17/2022 by Nereyda Kemp MD at [facility] Medtronic Neuro 11/16/2019 3058 / / Description:Explant disposed of in biohazard waste. Procedures Procedure Name Priority Date/Time Associated Diagnosis Comments MAGNESIUM Routine 11/26/2024 3:30 PM CDT S/P tricuspid valve replacement BASIC METABOLIC PANEL Routine 11/26/2024 3:30 PM CDT S/P tricuspid valve replacement SCAN - LABS 11/21/2024 PRO B-TYPE NATRIURETIC PEPTIDE Routine 11/12/2024 4:02 PM AERONAUTICAL ENGINEERING OFFICER S/P tricuspid valve replacement BASIC METABOLIC PANEL Routine 11/12/2024 4:02 PM AERONAUTICAL ENGINEERING OFFICER S/P tricuspid valve replacement CBC WITHOUT DIFFERENTIAL Routine 11/12/2024 4:02 PM AERONAUTICAL ENGINEERING OFFICER S/P tricuspid valve replacement ECG 12-LEAD Routine 11/12/2024 2:44 PM AERONAUTICAL ENGINEERING OFFICER 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] S/P tricuspid valve replacement TRANSTHORACIC ECHO (TTE) COMPLETE W DOPPLER/CF WO CONTRAST Routine 11/12/2024 2:04 PM AERONAUTICAL ENGINEERING OFFICER Tricuspid regurgitation, non-Ebstein's related ECG 12-LEAD Routine 10/20/2024 5:54 AM AERONAUTICAL ENGINEERING OFFICER EGFR Routine 10/20/2024 4:35 AM AERONAUTICAL ENGINEERING OFFICER DIFFERENTIAL AUTO Routine 10/20/2024 4:3 5 AM AERONAUTICAL ENGINEERING OFFICER BASIC METABOLIC PANEL Routine 10/20/2024 4:35 AM AERONAUTICAL ENGINEERING OFFICER CBC WITH AUTO DIFFERENTIAL Routine 10/20/2024 4:35 AM AERONAUTICAL ENGINEERING OFFICER PHOSPHORUS Routine 10/20/2024 4:35 AM AERONAUTICAL ENGINEERING OFFICER MAGNESIUM Routine 10/20/2024 4:35 AM AERONAUTICAL ENGINEERING OFFICER TRANSTHORACIC ECHO (TTE) COMPLETE W DOPPLER/CF W CONTRAST Pending Discharge 10/19/2024 5:49 PM AERONAUTICAL ENGINEERING OFFICER HEPATIC FUNCTION PANEL STAT 10/19/2024 11:50 AM AERONAUTICAL ENGINEERING OFFICER PROTIME-INR STAT 10/19/2024 11:50 AM AERONAUTICAL ENGINEERING OFFICER XR CHEST PA LATERAL 2 VIEWS IP Routine 10/19/2024 8:19 AM AERONAUTICAL ENGINEERING OFFICER ECG 12-LEAD Routine 10/19/2024 4:24 AM AERONAUTICAL ENGINEERING OFFICER EGFR Routine 10/18/2024 11:26 PM AERONAUTICAL ENGINEERING OFFICER DIFFERENTIAL AUTO Routine 10/18/2024 11:26 PM AERONAUTICAL ENGINEERING OFFICER BASIC METABOLIC PANEL Routine 10/18/2024 11:26 PM AERONAUTICAL ENGINEERING OFFICER CBC WITH AUTO DIFFERENTIAL Routine 10/18/2024 11:26 PM AERONAUTICAL ENGINEERING OFFICER PHOSPHORUS Routine 10/18/2024 11:26 PM AERONAUTICAL ENGINEERING OFFICER MAGNESIUM Routine 10/18/2024 11:26 PM AERONAUTICAL ENGINEERING OFFICER XR CHEST 1 VIEW ED Urgent/IP Urgent 10/18/2024 2:22 PM AERONAUTICAL ENGINEERING OFFICER EGFR Routine 10/18/2024 2:10 PM AERONAUTICAL ENGINEERING OFFICER DIFFERENTIAL AUTO Routine 10/18/2024 2:1 0 PM AERONAUTICAL ENGINEERING OFFICER APTT Routine 10/18/2024 2:10 PM AERONAUTICAL ENGINEERING OFFICER PROTIME-INR Routine 10/18/2024 2:10 PM AERONAUTICAL ENGINEERING OFFICER CBC WITH AUTO DIFFERENTIAL Routine 10/18/2024 2:10 PM AERONAUTICAL ENGINEERING OFFICER COMPREHENSIVE METABOLIC PANEL Routine 10/18/2024 2:10 PM AERONAUTICAL ENGINEERING OFFICER MAGNESIUM Routine 10/18/2024 2:10 PM AERONAUTICAL ENGINEERING OFFICER ECG 12-LEAD STAT 10/18/2024 1:57 PM AERONAUTICAL ENGINEERING OFFICER INTRACARDIAC ECHOCARDIOGRAM Routine 10/18/2024 1:40 PM AERONAUTICAL ENGINEERING OFFICER Tricuspid regurgitation, non-Ebstein's related TRANSCATHETER TRICUSPID VALVE IMPLANT Routine 10/18/2024 1:40 PM AERONAUTICAL ENGINEERING OFFICER Tricuspid regurgitation, non-Ebstein's related NADINE GUIDANCE DURING CARDIAC STRUCTURAL INTVN 44311 Routine 10/18/2024 1:30 PM AERONAUTICAL ENGINEERING OFFICER POCT ACTIVATED CLOTTING TIME, LOW RANGE Routine 10/18/2024 12:52 PM AERONAUTICAL ENGINEERING OFFICER POCT ACTIVATED CLOTTING TIME, LOW RANGE Routine 10/18/2024 12:27 PM AERONAUTICAL ENGINEERING OFFICER POCT ACTIVATED CLOTTING TIME, LOW RANGE Routine 10/18/2024 12:19 PM AERONAUTICAL ENGINEERING OFFICER SD AN PROCEDURE PLACEHOLDER Routine 10/18/2024 11:32 AM AERONAUTICAL ENGINEERING OFFICER SD AN PROCEDURE PLACEHOLDER Routine 10/18/2024 11:32 AM AERONAUTICAL ENGINEERING OFFICER SD AN ELECTIVE ENDOTRACHEAL AIRWAY Routine 10/18/2024 11:32 AM AERONAUTICAL ENGINEERING OFFICER POCT GLUCOSE DEVICE Routine 10/18/2024 10:42 AM AERONAUTICAL ENGINEERING OFFICER B CHECK SAMPLE STAT 10/18/2024 10:40 AM AERONAUTICAL ENGINEERING OFFICER PREPARE RBC Timed 10/18/2024 10:25 AM AERONAUTICAL ENGINEERING OFFICER EGFR Routine 10/18/2024 3:48 AM AERONAUTICAL ENGINEERING OFFICER DIFFERENTIAL AUTO Routine 10/18/2024 3:4 8 AM AERONAUTICAL ENGINEERING OFFICER PROTIME-INR Routine 10/18/2024 3:48 AM AERONAUTICAL ENGINEERING OFFICER CBC WITH AUTO DIFFERENTIAL Routine 10/18/2024 3:48 AM AERONAUTICAL ENGINEERING OFFICER BASIC METABOLIC PANEL Routine 10/18/2024 3:48 AM AERONAUTICAL ENGINEERING OFFICER MAGNESIUM Routine 10/18/2024 3:48 AM AERONAUTICAL ENGINEERING OFFICER PHOSPHORUS Routine 10/18/2024 3:48 AM AERONAUTICAL ENGINEERING OFFICER EGFR Routine 10/17/2024 4:08 AM AERONAUTICAL ENGINEERING OFFICER CBC WITHOUT DIFFERENTIAL Routine 10/17/2024 4:08 AM AERONAUTICAL ENGINEERING OFFICER COMPREHENSIVE METABOLIC PANEL Routine 10/17/2024 4:08 AM AERONAUTICAL ENGINEERING OFFICER EGFR Routine 10/16/2024 12:11 PM AERONAUTICAL ENGINEERING OFFICER Preoperative testing URINALYSIS, MICROSCOPIC ONLY Routine 10/16/2024 12:11 PM AERONAUTICAL ENGINEERING OFFICER Preoperative testing DIFFERENTIAL AUTO Routine 10/16/2024 12:11 PM AERONAUTICAL ENGINEERING OFFICER Preoperative testing CBC WITH AUTO DIFFERENTIAL Routine 10/16/2024 12:11 PM AERONAUTICAL ENGINEERING OFFICER Preoperative testing COMPREHENSIVE METABOLIC PANEL Routine 10/16/2024 12:11 PM AERONAUTICAL ENGINEERING OFFICER Preoperative testing TYPE AND SCREEN 14 DAY Routine 10/16/2024 12:11 PM AERONAUTICAL ENGINEERING OFFICER Preoperative testing PROTIME-INR Routine 10/16/2024 12:11 PM AERONAUTICAL ENGINEERING OFFICER Preoperative testing Easy bruising CPAP APTT ALGORITHM Routine 10/16/2024 12:11 PM AERONAUTICAL ENGINEERING OFFICER Preoperative testing URINALYSIS AND REFLEX TO MICROSCOPIC AND CULTURE Routine 10/16/2024 12:11 PM AERONAUTICAL ENGINEERING OFFICER Preoperative testing ECG 12-LEAD Routine 10/16/2024 11:26 AM AERONAUTICAL ENGINEERING OFFICER Preoperative testing COLONOSCOPY 11/12/2020 12:00 PM AERONAUTICAL ENGINEERING OFFICER from Last 3 Months or Most Recently [...] Pro B-type natriuretic peptide (11/12/2024 4:02 PM AERONAUTICAL ENGINEERING OFFICER) NT-proBNP 1,758(H) <=450 pg/mL Comment: Interpretive Comments: [...] Revised Date: 2018. Blood 11/12/2024 4:02 PM AERONAUTICAL ENGINEERING OFFICER 11/12/2024 6:34 PM AERONAUTICAL ENGINEERING OFFICER us Shawanda Maurice HITCH TECHNICIAN LAB BLOOD ORDERABLES Final R esult MARTHA CHO One [facility] [place] [address] * (ABNORMAL) CBC without differential (11/12/2024 4:02 PM AERONAUTICAL ENGINEERING OFFICER) White Blood Count 4.8 3.6 - 11.2 [...] [facility] Blood 11/12/2024 4:02 PM AERONAUTICAL ENGINEERING OFFICER 11/12/2024 4:27 PM AERONAUTICAL ENGINEERING OFFICER us Shawanda Maurice HITCH TECHNICIAN LAB BLOOD ORDERABLES Final R esult [facility] CORE LAB [facility] * (ABNORMAL) Basic metabolic panel (11/12/2024 4:02 PM AERONAUTICAL ENGINEERING OFFICER) Glucose 105(H) 64 - 99 mg/dL [facility] [...] [facility] Blood 11/12/2024 4:02 PM AERONAUTICAL ENGINEERING OFFICER 11/12/2024 4:27 PM AERONAUTICAL ENGINEERING OFFICER us Shawanda Maurice HITCH TECHNICIAN LAB BLOOD ORDERABLES Final R esult [facility] CORE [facility] * ECG 12 lead (11/12/2024 2:44 PM AERONAUTICAL ENGINEERING OFFICER) Shawanda Maurice HITCH TECHNICIAN ECG ORDERABLES Edited Resul t - Final * TRANSTHORACIC ECHO (TTE) COMPLETE W DOPPLER/CF WO CONTRAST (11/12/2024 2:04 PM AERONAUTICAL ENGINEERING OFFICER) LV EF 60-65 % CONS SCIMAGE Anatomical Region Laterality Modality Ultrasound 11/12/2024 12:5 9 PM AERONAUTICAL ENGINEERING OFFICER Narrative 11/12/2024 2:46 PM AERONAUTICAL ENGINEERING OFFICER [facility] Cardiac [place] [address] Transthoracic Echocardiographic Report Patient Name: STACY HERRON : 1945 (79y 9m) Gender: F Study Date: 11/12/2024 12:59:37 PM Ht(Inch): 61 Wt(Lb): 136.02 BSA: 1.63 Counter Clerk [employer]: Shy Kellogg RDCS Location: [facility] Order Provider: IRASEMA VALDEZ Heart Rate: 67 BMI: 25.7 BP: 136 / 84 Quality: The study images were of technically good quality. Ref Provider: IRASEMA VALDEZ PROCEDURES: Echocardiographic Report: ([id number], [id number]) Transthoracic complete echo with strain imaging, 2D, [...] By: Rom Breen M.D. 11/12/2024 2:46:23 PM AERONAUTICAL ENGINEERING OFFICER Electronically Signed By: Rom Breen M.D. 11/12/2024 2:46:23 PM AERONAUTICAL ENGINEERING OFFICER Procedure Note Rom Breen MD - 11/12/2024 [facility] Cardiac [place] [address] Transthoracic Echocardiographic Report Patient Name: STACY HERRON : 1945 (79y 9m) Gender: F Study Date: 11/12/2024 12:59:37 PM Ht(Inch): 61 Wt(Lb): 136.02 BSA: 1.63 Counter Clerk [employer]: Shy Kellogg [facility] Location: [facility] Order Provider:IRASEMA VALDEZ Heart Rate: 67 BMI: 25.7 BP: 136 / 84 Quality: The study images were oftechnically good quality. Ref Provider: IRASEMA VALDEZ PROCEDURES: Echocardiographic Report: ([id number], [id number]) Transthoracic complete echo withstrain imaging, 2D, spectral [...] study completed on 10-19-2024. No change compared [facility] study. ATTESTATION: I have reviewed [...] By: Rom Breen M.D. 11/12/2024 2:46:23 PM AERONAUTICAL ENGINEERING OFFICER Electronically Signed By: Rom Breen M.D. 11/12/2024 2:46:23 PM AERONAUTICAL ENGINEERING OFFICER Irasema Valdez MD CV ECHO PROCEDURES Final Result * ECG 12 lead (10/20/2024 5:54 AM AERONAUTICAL ENGINEERING OFFICER) Ventricular Rate EKG/Min 103 BPM [facility] Atrial Rate 103 BPM [facility] SD-Interval (MSEC) 154 ms [facility] QRS-Interval (MSEC) 112 ms [facility] QT-Interval (MSEC) 352 ms [facility] QTc 461 ms [facility] P [place] 49 degrees [facility] R [place] 49 degrees [facility] T [place] -25 degrees [facility] Diagnosis Sinus tachycardia Incomplete right bundle branch block ST & T wave abnormality, consider inferior ischemia ST & T wave abnormality, consider anterolateral ischemia Abnormal ECG Confirmed by Deborah Stacy MD ([id number]) on 10/22/2024 6:39:54 PM [facility] 10/20/2024 5:54 AM AERONAUTICAL ENGINEERING OFFICER 10/22/2024 6:39 PM AERONAUTICAL ENGINEERING OFFICER us Chanel Kelley HITCH TECHNICIAN ECG ORDERABLES Final Resul t [facility] * eGFR (10/20/2024 4:35 AM AERONAUTICAL ENGINEERING OFFICER) eGFR 69 >=60 mL/min/1. 73 m2 Comment: [...] last reviewed 2021. Blood 10/20/2024 4:35 AM AERONAUTICAL ENGINEERING OFFICER 10/20/2024 5:15 AM AERONAUTICAL ENGINEERING OFFICER us Terri Soni NP LAB BLOOD ORDERABLES Final Result [facility] One [facility] [place] [address] * (ABNORMAL) Differential, auto (10/20/2024 4:35 AM AERONAUTICAL ENGINEERING OFFICER) Neutrophil abs 7.6(H) 1.5 - 6.5 K/cumm Imm gran abs 0.0 0.0 - 0.1 K/cumm [facility] Lymphocyte abs 1.1 0.8 - 3.3 K/cumm [facility] Monocyte abs 0.9(H) 0.2 - 0.8 K/cumm [facility] Eosinophil abs 0.0 0.0 - 0.5 K/cumm [facility] Basophil abs 0.0 0.0 - 0.1 K/cumm [facility] Neutrophil pct 79.0 % [facility] Comment: Interpretive Data Percent cell count reference ranges are not reported, since discordance with absolute values may lead to misinterpretation of CBC data. Current Interpretive Data was last revised on 2017. Imm gran pct 0.4 % [facility] Comment: Interpretive Data Percent cell count reference ranges are not reported, since discordance with absolute values may lead to misinterpretation of CBC data. Current Interpretive Data was last revised on 2017. Lymphocyte pct 10.8 % [facility] Comment: Interpretive Data Percent cell count reference ranges are not reported, since discordance with absolute values may lead to misinterpretation of CBC data. Current Interpretive Data was last revised on 2017. Monocyte pct 9.4 % [facility] Comment: Interpretive Data Percent cell count reference ranges are not reported, since discordance with absolute values may lead to misinterpretation of CBC data. Current Interpretive Data was last revised on 2017. Eosinophil pct 0.2 % [facility] Comment: Interpretive Data Percent cell count reference ranges are not reported, since discordance with absolute values may lead to misinterpretation of CBC data. Current Interpretive Data was last revised on 2017. Basophil pct 0.2 % [facility] Comment: Interpretive Data Percent cell count reference ranges are not reported, since discordance with absolute values may lead to misinterpretation of CBC data. Current Interpretive Data was last revised on 2017. Blood 10/20/2024 4:35 AM AERONAUTICAL ENGINEERING OFFICER 10/20/2024 5:15 AM AERONAUTICAL ENGINEERING OFFICER us Terri Soni HITCH TECHNICIAN LAB BLOOD ORDERABLES Final Result [facility] [place] [address] * (ABNORMAL) CBC with auto differential (10/20/2024 4:35 AM AERONAUTICAL ENGINEERING OFFICER) WBC 9.7 3.8 - 9.9 K/cumm Hgb 11.0(L) 11.9 - 15.5 g/dL [facility] Hct 32.5(L) 35.6 - 45.5 % [facility] Plt 139(L) 150 - 400 K/cumm [facility] MPV 10.3 9.1 - 12.3 fL [facility] RBC 3.57(L) 3.90 - 5.20 M/cumm [facility] MCV 91.0 81.3 - 96.4 fL [facility] MCH 30.8 27.1 - 33.3 pg [facility] MCHC 33.8 32.3 - 35.7 g/dL [facility] RDW CV 14.1 11.1 - 14.9 % [facility] RDW SD 47.2 35.7 - 48.1 fL [facility] NRBC abs 0.00 0.00 - 0.01 K/cumm [facility] Blood 10/20/2024 4:35 AM AERONAUTICAL ENGINEERING OFFICER 10/20/2024 5:15 AM AERONAUTICAL ENGINEERING OFFICER Terri Soni HITCH TECHNICIAN LAB BLOOD ORDERABLES Final Result [facility] [place] [address] * Phosphorus (10/20/2024 4:35 AM AERONAUTICAL ENGINEERING OFFICER) Phosphorus, pl 2.8 2.3 - 4.5 mg/dL Blood 10/20/2024 4:35 AM AERONAUTICAL ENGINEERING OFFICER 10/20/2024 5:15 AM AERONAUTICAL ENGINEERING OFFICER Terri Soni HITCH TECHNICIAN LAB BLOOD ORDERABLES Final Result [facility] [place] [address] * Magnesium (10/20/2024 4:35 AM AERONAUTICAL ENGINEERING OFFICER) Magnesium 1.8 1.4 - 2.5 mg/dL Blood 10/20/2024 4:35 AM AERONAUTICAL ENGINEERING OFFICER 10/20/2024 5:15 AM AERONAUTICAL ENGINEERING OFFICER Terri Soni NP LAB BLOOD ORDERABLES Final Result [facility] One [facility] [place] [address] * Basic metabolic panel (10/20/2024 4:35 AM AERONAUTICAL ENGINEERING OFFICER) Pathologist [facility] Sodium 140 135 - 145 mmol/L Potassium, pl 4.0 3.3 - 4.9 mmol/L [facility] Chloride 104 97 - 110 mmol/L [facility] CO2 28 22 - 32 mmol/L [facility] Anion gap 8 2 - 15 mmol/L [facility] BUN 15 6 - 25 mg/dL [facility] Creatinine 0.87 0.60 - 1.10 mg/dL [facility] Glucose 95 70 - 199 mg/dL [facility] Comment: Interpretive Data Fasting glucose [...] 2022. Calcium 8.8 8.5 - 10.3 mg/dL [facility] Blood 10/20/2024 4:35 AM AERONAUTICAL ENGINEERING OFFICER 10/20/2024 5:15 AM AERONAUTICAL ENGINEERING OFFICER Terri Soni NP LAB BLOOD ORDERABLES Final Result [facility] One [facility] [place] [address] * TRANSTHORACIC ECHO (TTE) COMPLETE W DOPPLER/CF W CONTRAST (10/19/2024 5:49 PM AERONAUTICAL ENGINEERING OFFICER) LV EF % CONS SCIMAGE Anatomical Region Laterality Modality Ultrasound 10/19/2024 4:43 PM AERONAUTICAL ENGINEERING OFFICER Narrative 10/22/2024 11:13 AM AERONAUTICAL ENGINEERING OFFICER [facility] [place] [place] [address] Transthoracic Echocardiographic Report Patient Name: STACY HERRON : 1945 (79y 9m) Gender: F Study Date: 10/19/2024 04:43:04 PM Ht(Inch): 61 Wt(Lb): 134.92 BSA: 1.62 Counter Clerk [employer]: Beth Guajardo [facility] Location: [id number] Order Provider: CHANEL KELLEY BMI: 25.49 BP: 115 / 84 Quality: The study images were of technically good quality. Ref Provider: CHANEL KELLEY PROCEDURES: Echocardiographic Report: ([id number], [id number], [id number]) Transthoracic complete echo with strain imaging and [...] [ 1.71 - 5.00 ] PV Accel Latimer 763.32 cm/sec2 AoR Diam 2D 2.93 cm [...] By: Bk Castillo MD 10/22/2024 10:57:14 AM AERONAUTICAL ENGINEERING OFFICER Electronically Signed By: oRm Breen M.D. 10/22/2024 11:12:10 AM AERONAUTICAL ENGINEERING OFFICER Procedure Note oRm Breen MD - 10/22/2024 [facility] [place] [address] Transthoracic Echocardiographic Report Patient Name: STACY HERRON : 1945 (79y 9m) Gender: F Study Date: 10/19/2024 04:43:04 PM Ht(Inch): 61 Wt(Lb): 134.92 BSA: 1.62 Counter Clerk [employer]: Beth Guajardo [facility] Location: [id number] Order Provider:CHANEL KELLEY BMI: 25.49 BP: 115 / 84 Quality: The study images were oftechnically good quality. Ref Provider: CHANEL KELLEY PROCEDURES: Echocardiographic Report: ([id number], [id number]) Transthoracic completeecho with strain imaging and contrast, [...] [ 46.00 - 106.00 ] MV Decel [id number] msec [ 104.00 - 258.00 ] ESV [...] [ 1.71 - 5.00 ] PV Accel [id number] cm/sec2 AoR Diam 2D 2.93 cm [ [...] By: Bk Castillo MD 10/22/2024 10:57:14 AM AERONAUTICAL ENGINEERING OFFICER Electronically Signed By: Rom Breen M.D. 10/22/2024 11:12:10 AM AERONAUTICAL ENGINEERING OFFICER us Chanel Kelley NP CV ECHO PROCEDURES Final Re sult * Protime-INR (10/19/2024 11:50 AM AERONAUTICAL ENGINEERING OFFICER) PT 11.0 9.7 - 13.0 sec INR 1.02 0.90 - 1.20 [facility] Comment: Interpretive data Oral anticoagulant therapeutic ranges: Venous thromboembolism prophylaxis or treatment: 2.0-3.0 CARDIOLOGY Standard range: 2.0-3.0 High-intensity range: 2.5-3.5 Refer to indication-specific guidelines for appropriate target ranges for prosthetic heart valve replacement. Current interpretive data was last revised on 2019. Blood 10/19/2024 11:5 0 AM AERONAUTICAL ENGINEERING OFFICER 10/19/2024 12:38 PM AERONAUTICAL ENGINEERING OFFICER Narrative [facility] - 10/19/2024 1:02 PM AERONAUTICAL ENGINEERING OFFICER Baseline prior to apixaban initiation. Isaiah Crockett NP LAB BLOOD ORDERABLES Final R esult Performing Organization Address City/[facility]/ZIP Co de Phone Number [facility] Department [place] [address] * (ABNORMAL) Hepatic function panel (10/19/2024 11:50 AM AERONAUTICAL ENGINEERING OFFICER) Pathologist [facility] Bilirubin, total 0.5 0.1 - 1.2 mg/dL Bilirubin, direct <0.2 0.1 - 0.3 mg/dL [facility] Protein, pl 7.5 6.5 - 8.5 g/dL [facility] Albumin 4.5 3.5 - 5.0 g/dL [facility] Alk phos 95 40 - 130 Units/L [facility] ALT 24 7 - 45 Units/L [facility] AST 55(H) 10 - 45 Units/L [facility] Blood 10/19/2024 11:5 0 AM AERONAUTICAL ENGINEERING OFFICER 10/19/2024 12:40 PM AERONAUTICAL ENGINEERING OFFICER Narrative [facility] - 10/19/2024 1:10 PM AERONAUTICAL ENGINEERING OFFICER Baseline prior to apixaban initiation. Isaiah Crockett NP LAB BLOOD ORDERABLES Final R esult Performing Organization Address City/[facility]/ZIP Co de Phone Number [facility] [place] [address] * XR Chest PA Lateral 2 Views (10/19/2024 8:19 AM AERONAUTICAL ENGINEERING OFFICER) Anatomical Region Laterality Modality Body, Chest N/A Computed Radiogr aphy 10/19/2024 11:0 9 AM AERONAUTICAL ENGINEERING OFFICER Impressions 10/19/2024 11:45 AM AERONAUTICAL ENGINEERING OFFICER Comparison is made to radiograph dated 10/18/2024 [...] Rodrigo Tolentino M.D. Narrative 10/19/2024 11:45 AM AERONAUTICAL ENGINEERING OFFICER EXAMINATION: 2 view chest radiograph Procedure Note [...] by: Rodrigo Tolentino M.D. us Chanel Kelley HITCH TECHNICIAN IMG XR PROCEDURES Final Res ult * ECG 12 lead (10/19/2024 4:24 AM AERONAUTICAL ENGINEERING OFFICER) Ventricular Rate EKG/Min 102 BPM [facility] Atrial Rate 102 BPM [facility] SD-Interval (MSEC) 154 ms [facility] QRS-Interval (MSEC) 106 ms [facility] QT-Interval (MSEC) 376 ms [facility] QTc 490 ms [facility] P [place] 50 degrees [facility] R [place] 47 degrees [facility] T [place] -17 degrees [facility] Diagnosis Sinus tachycardia Low voltage QRS Incomplete right bundle branch block ST & T wave abnormality, consider anterior ischemia Abnormal ECG When compared with ECG of 18-OCT-2024 13:57, No significant change was found Confirmed by BENNY ADHIKARI M.D ([id number]) on 10/19/2024 10:23:40 AM [facility] 10/19/2024 4:24 AM AERONAUTICAL ENGINEERING OFFICER 10/19/2024 10:23 AM AERONAUTICAL ENGINEERING OFFICER us Chanel Kelley NP ECG ORDERABLES Final Resul t [facility] * eGFR (10/18/2024 11:26 PM AERONAUTICAL ENGINEERING OFFICER) eGFR 60 >=60 mL/min/1. 73 m2 Comment: [...] reviewed 2021. Blood 10/18/2024 11:2 6 PM AERONAUTICAL ENGINEERING OFFICER 10/18/2024 11:49 PM AERONAUTICAL ENGINEERING OFFICER us Terri A. Soni HITCH TECHNICIAN LAB BLOOD ORDERABLES Final Result [facility] One [facility] [place] [address] * (ABNORMAL) Differential, auto (10/18/2024 11:26 PM AERONAUTICAL ENGINEERING OFFICER) Neutrophil abs 7.1(H) 1.5 - 6.5 K/cumm Imm gran abs 0.0 0.0 - 0.1 K/cumm [facility] Lymphocyte abs 0.5(L) 0.8 - 3.3 K/cumm [facility] Monocyte abs 0.4 0.2 - 0.8 K/cumm [facility] Eosinophil abs 0.0 0.0 - 0.5 K/cumm [facility] Basophil abs 0.0 0.0 - 0.1 K/cumm [facility] Neutrophil pct 88.7 % [facility] Comment: Interpretive Data Percent cell count reference ranges are not reported, since discordance with absolute values may lead to misinterpretation of CBC data. Current Interpretive Data was last revised on 2017. Imm gran pct 0.3 % [facility] Comment: Interpretive Data Percent cell count reference ranges are not reported, since discordance with absolute values may lead to misinterpretation of CBC data. Current Interpretive Data was last revised on 2017. Lymphocyte pct 6.4 % [facility] Comment: Interpretive Data Percent cell count reference ranges are not reported, since discordance with absolute values may lead to misinterpretation of CBC data. Current Interpretive Data was last revised on 2017. Monocyte pct 4.6 % [facility] Comment: Interpretive Data Percent cell count reference ranges are not reported, since discordance with absolute values may lead to misinterpretation of CBC data. Current Interpretive Data was last revised on 2017. Eosinophil pct 0.0 % [facility] Comment: Interpretive Data Percent cell count reference ranges are not reported, since discordance with absolute values may lead to misinterpretation of CBC data. Current Interpretive Data was last revised on 2017. Basophil pct 0.0 % [facility] Comment: Interpretive Data Percent cell count reference ranges are not reported, since discordance with absolute values may lead to misinterpretation of CBC data. Current Interpretive Data was last revised on 2017. Blood 10/18/2024 11:2 6 PM AERONAUTICAL ENGINEERING OFFICER 10/18/2024 11:50 PM AERONAUTICAL ENGINEERING OFFICER Terri Soni HITCH TECHNICIAN LAB BLOOD ORDERABLES Final Result Performing Organization Address City/[facility]/ZIP Co de Phone Number [facility] Department [place] [address] * (ABNORMAL) CBC with auto differential (10/18/2024 11:26 PM AERONAUTICAL ENGINEERING OFFICER) [facility] WBC 8.0 3.8 - 9.9 K/cumm Hgb 11.8(L) 11.9 - 15.5 g/dL [facility] Hct 36.3 35.6 - 45.5 % [facility] Plt 189 150 - 400 K/cumm [facility] MPV 10.0 9.1 - 12.3 fL [facility] RBC 3.96 3.90 - 5.20 M/cumm [facility] MCV 91.7 81.3 - 96.4 fL [facility] MCH 29.8 27.1 - 33.3 pg [facility] MCHC 32.5 32.3 - 35.7 g/dL [facility] RDW CV 13.6 11.1 - 14.9 % [facility] RDW SD 46.4 35.7 - 48.1 fL [facility] NRBC abs 0.00 0.00 - 0.01 K/cumm [facility] Blood 10/18/2024 11:2 6 PM AERONAUTICAL ENGINEERING OFFICER 10/18/2024 11:50 PM AERONAUTICAL ENGINEERING OFFICER Terri Soni HITCH TECHNICIAN LAB BLOOD ORDERABLES Final Result Performing Organization Address [facility] Co de Phone Number [facility] [place] [address] * Phosphorus (10/18/2024 11:26 PM AERONAUTICAL ENGINEERING OFFICER) [facility] Phosphorus, pl 2.4 2.3 - 4.5 mg/dL Blood 10/18/2024 11:2 6 PM AERONAUTICAL ENGINEERING OFFICER 10/18/2024 11:49 PM AERONAUTICAL ENGINEERING OFFICER us Terri Soni HITCH TECHNICIAN LAB BLOOD ORDERABLES Final Result Performing Organization Address [facility] de Phone Number [facility] [place] [address] * Magnesium (10/18/2024 11:26 PM AERONAUTICAL ENGINEERING OFFICER) [facility] Magnesium 1.9 1.4 - 2.5 mg/dL Blood 10/18/2024 11:2 6 PM AERONAUTICAL ENGINEERING OFFICER 10/18/2024 11:49 PM AERONAUTICAL ENGINEERING OFFICER Terri Soni HITCH TECHNICIAN LAB BLOOD ORDERABLES Final Result Performing Organization Address [facility] de Phone Number [facility] [place] [address] * (ABNORMAL) Basic metabolic panel (10/18/2024 11:26 PM AERONAUTICAL ENGINEERING OFFICER) [facility] Sodium 141 135 - 145 mmol/L Potassium, pl 4.4 3.3 - 4.9 mmol/L [facility] Chloride 105 97 - 110 mmol/L [facility] CO2 23 22 - 32 mmol/L [facility] Anion gap 13 2 - 15 mmol/L [facility] BUN 20 6 - 25 mg/dL [facility] Creatinine 0.97 0.60 - 1.10 mg/dL [facility] Glucose 240(H) 70 - 199 mg/dL [facility] Comment: Interpretive Data Fasting glucose [...] 2022. Calcium 9.5 8.5 - 10.3 mg/dL [facility] Blood 10/18/2024 11:2 6 PM AERONAUTICAL ENGINEERING OFFICER 10/18/2024 11:49 PM AERONAUTICAL ENGINEERING OFFICER us Terri Soni HITCH TECHNICIAN LAB BLOOD ORDERABLES Final Result [facility] One [facility] [place] [address] * XR Chest 1 view (10/18/2024 2:22 PM AERONAUTICAL ENGINEERING OFFICER) Anatomical Region Laterality Modality Body, Chest N/A Computed Radiogr aphy 10/18/2024 3:07 PM AERONAUTICAL ENGINEERING OFFICER Impressions 10/18/2024 4:23 PM AERONAUTICAL ENGINEERING OFFICER Comparison is made to chest radiograph of [...] Rubina Hernandez M.D. Narrative 10/18/2024 4:23 PM AERONAUTICAL ENGINEERING OFFICER EXAMINATION: 1 view chest radiograph Procedure Note [...] Res ult * eGFR (10/18/2024 2:10 PM AERONAUTICAL ENGINEERING OFFICER) eGFR 63 >=60 mL/min/1. 73 m2 Comment: [...] last reviewed 2021. Blood 10/18/2024 2:10 PM AERONAUTICAL ENGINEERING OFFICER 10/18/2024 2:25 PM AERONAUTICAL ENGINEERING OFFICER Chanel Kelley NP LAB BLOOD ORDERABLES Final Result [facility] One [facility] [place] [address] * Differential, auto (10/18/2024 2:10 PM AERONAUTICAL ENGINEERING OFFICER) Neutrophil abs 4.8 1.5 - 6.5 K/cumm Imm gran abs 0.0 0.0 - 0.1 K/cumm [facility] Lymphocyte abs 0.8 0.8 - 3.3 K/cumm [facility] Monocyte abs 0.2 0.2 - 0.8 K/cumm [facility] Eosinophil abs 0.0 0.0 - 0.5 K/cumm [facility] Basophil abs 0.0 0.0 - 0.1 K/cumm [facility] Neutrophil pct 81.5 % [facility] Comment: Interpretive Data Percent cell count reference ranges are not reported, since discordance with absolute values may lead to misinterpretation of CBC data. Current Interpretive Data was last revised on 2017. Imm gran pct 0.5 % [facility] Comment: Interpretive Data Percent cell count reference ranges are not reported, since discordance with absolute values may lead to misinterpretation of CBC data. Current Interpretive Data was last revised on 2017. Lymphocyte pct 13.9 % [facility] Comment: Interpretive Data Percent cell count reference ranges are not reported, since discordance with absolute values may lead to misinterpretation of CBC data. Current Interpretive Data was last revised on 2017. Monocyte pct 3.3 % [facility] Comment: Interpretive Data Percent cell count reference ranges are not reported, since discordance with absolute values may lead to misinterpretation of CBC data. Current Interpretive Data was last revised on 2017. Eosinophil pct 0.5 % [facility] Comment: Interpretive Data Percent cell count reference ranges are not reported, since discordance with absolute values may lead to misinterpretation of CBC data. Current Interpretive Data was last revised on 2017. Basophil pct 0.3 % [facility] Comment: Interpretive Data Percent cell count reference ranges are not reported, since discordance with absolute values may lead to misinterpretation of CBC data. Current Interpretive Data was last revised on 2017. Blood 10/18/2024 2:10 PM AERONAUTICAL ENGINEERING OFFICER 10/18/2024 2:14 PM AERONAUTICAL ENGINEERING OFFICER us Chanel Kelley HITCH TECHNICIAN LAB BLOOD ORDERABLES Final Result [facility] One [facility] [place] [address] * (ABNORMAL) CBC with auto differential (10/18/2024 2:10 PM AERONAUTICAL ENGINEERING OFFICER) WBC 5.8 3.8 - 9.9 K/cumm Hgb 11.7(L) 11.9 - 15.5 g/dL [facility] Hct 34.6(L) 35.6 - 45.5 % [facility] Plt 202 150 - 400 K/cumm [facility] MPV 9.9 9.1 - 12.3 fL [facility] RBC 3.83(L) 3.90 - 5.20 M/cumm [facility] MCV 90.3 81.3 - 96.4 fL [facility] MCH 30.5 27.1 - 33.3 pg [facility] MCHC 33.8 32.3 - 35.7 g/dL [facility] RDW CV 13.6 11.1 - 14.9 % [facility] RDW SD 45.2 35.7 - 48.1 fL [facility] NRBC abs 0.00 0.00 - 0.01 K/cumm [facility] Blood 10/18/2024 2:10 PM AERONAUTICAL ENGINEERING OFFICER 10/18/2024 2:14 PM AERONAUTICAL ENGINEERING OFFICER Chanel Kelley NP LAB BLOOD ORDERABLES Final Result Performing Organization Address [facility] de Phone Number [facility] [place] [address] * (ABNORMAL) aPTT (10/18/2024 2:10 PM AERONAUTICAL ENGINEERING OFFICER) [facility] aPTT 66(H) 28 - 38 sec Comment: Interpretive Data Heparin therapeutic range: 66.0 - 100.0 seconds. Range based on correlation with therapeutic heparin activity range of 0.3 - 0.7 Units/mL. Current interpretive data was last revised on 2023. Blood 10/18/2024 2:10 PM AERONAUTICAL ENGINEERING OFFICER 10/18/2024 2:14 PM AERONAUTICAL ENGINEERING OFFICER Chanel Kelley NP LAB BLOOD ORDERABLES Final Result Performing Organization Address City/[facility] de Phone Number [facility] [place] [address] * (ABNORMAL) Protime-INR (10/18/2024 2:10 PM AERONAUTICAL ENGINEERING OFFICER) [facility] PT 13.1(H) 9.7 - 13.0 sec INR 1.21(H) 0.90 - 1.20 [facility] Comment: Interpretive data Oral anticoagulant therapeutic ranges: Venous thromboembolism prophylaxis or treatment: 2.0-3.0 CARDIOLOGY Standard range: 2.0-3.0 High-intensity range: 2.5-3.5 Refer to indication-specific guidelines for appropriate target ranges for prosthetic heart valve replacement. Current interpretive data was last revised on 2019. Blood 10/18/2024 2:10 PM AERONAUTICAL ENGINEERING OFFICER 10/18/2024 2:14 PM AERONAUTICAL ENGINEERING OFFICER Chanel Kelley NP LAB BLOOD ORDERABLES Final Result Performing Organization Address City/[facility] Co de Phone Number [facility] [place] [address] * Magnesium (10/18/2024 2:10 PM AERONAUTICAL ENGINEERING OFFICER) [facility] Magnesium 1.9 1.4 - 2.5 mg/dL Blood 10/18/2024 2:10 PM AERONAUTICAL ENGINEERING OFFICER 10/18/2024 2:14 PM AERONAUTICAL ENGINEERING OFFICER Chanel Kelley NP LAB BLOOD ORDERABLES Final Result Performing Organization Address [facility] de Phone Number [facility] [place] [address] * (ABNORMAL) Comprehensive metabolic panel (10/18/2024 2:10 PM AERONAUTICAL ENGINEERING OFFICER) [facility] Sodium 142 135 - 145 mmol/L Potassium, pl 4.2 3.3 - 4.9 mmol/L [facility] Chloride 108 97 - 110 mmol/L [facility] CO2 24 22 - 32 mmol/L [facility] Anion gap 10 2 - 15 mmol/L [facility] BUN 20 6 - 25 mg/dL [facility] Creatinine 0.93 0.60 - 1.10 mg/dL [facility] Glucose 123 70 - 199 mg/dL [facility] [...] 2022. Calcium 9.2 8.5 - 10.3 mg/dL [facility] Bilirubin, total 0.5 0.1 - 1.2 mg/dL [facility] Protein, pl 6.6 6.5 - 8.5 g/dL [facility] Albumin 4.0 3.5 - 5.0 g/dL [facility] Alk phos 78 40 - 130 Units/L [facility] ALT 20 7 - 45 Units/L [facility] AST 50(H) 10 - 45 Units/L [facility] Blood 10/18/2024 2:10 PM AERONAUTICAL ENGINEERING OFFICER 10/18/2024 2:14 PM AERONAUTICAL ENGINEERING OFFICER us Chanel Kelley NP LAB BLOOD ORDERABLES Final Result [facility] One [facility] [place] [address] * ECG 12 lead (10/18/2024 1:57 PM AERONAUTICAL ENGINEERING OFFICER) Pathologist [facility] Ventricular Rate EKG/Min 88 BPM [facility] Atrial Rate 88 BPM [facility] SD-Interval (MSEC) 162 ms [facility] QRS-Interval (MSEC) 112 ms [facility] QT-Interval (MSEC) 402 ms [facility] QTc 486 ms [facility] P [place] 60 degrees [facility] R [place] 69 degrees [facility] T [place] -27 degrees [facility] Diagnosis Normal sinus rhythm Incomplete right bundle branch block ST & T wave abnormality, consider inferior ischemia ST & T wave abnormality, consider anterior ischemia Prolonged QT Abnormal ECG When compared with ECG of 16-OCT-2024 11:26, Right bundle branch block is new Confirmed by MARV GARCIA M.D ([id number]) on 10/18/2024 4:04:39 PM [facility] [employer] 10/18/2024 1:57 PM AERONAUTICAL ENGINEERING OFFICER 10/18/2024 4:04 PM AERONAUTICAL ENGINEERING OFFICER us Chanel Kelley NP ECG ORDERABLES Final Resul t [facility] * TRANSCATHETER TRICUSPID VALVE IMPLANT, INTRACARDIAC ECHOCARDIOGRAM (10/18/2024 1:40 PM AERONAUTICAL ENGINEERING OFFICER) Anatomical Region Laterality Modality X-Ray Angiograph y Narrative 10/18/2024 2:46 PM AERONAUTICAL ENGINEERING OFFICER Cardiac Catheterization Transcatheter Tricuspid Valve Replacement Name: [...] Perioperative antibiotics TTE in AM Transfer to [facility] Irasema Valdez MD care professional [employer] of Valvular Heart Disease us Cristhian Rodgers MD CV CARDIAC CATH PROCEDURES Fi nal Result * NADINE Guidance During Cardiac Structural Intvn [id number] (10/18/2024 1:30 PM AERONAUTICAL ENGINEERING OFFICER) LV EF % CONS SCIMAGE BSA 1.64 m2 CONS SCIMAGE Anatomical Region Laterality Modality Echocardiography 10/18/2024 11:3 7 AM AERONAUTICAL ENGINEERING OFFICER Narrative 10/18/2024 3:47 PM AERONAUTICAL ENGINEERING OFFICER [facility] [place]iac [place] [address] Transesophageal Echocardiographic Report Patient Name: STACY HERRON : 1945 (79y 9m) Gender: F Study Date: 10/18/2024 11:37:56 AM Ht(Inch): Wt(Lb): BSA: [employer]: Location: [id number] Order Provider: DEBORAH STACY BMI: Quality: Good Ref Provider: DEBORAH STACY PROCEDURES: Transesophageal Echo Report: [id number] Echocardiography, transesophageal (NADINE) for guidance of a [...] anesthesia. The probe was passed by the surgical training specialist. Standard views were obtained in the transgastric, [...] By: Deborah Stacy MD 10/18/2024 3:46:36 PM AERONAUTICAL ENGINEERING OFFICER Electronically Signed By: Deborah Stacy MD 10/18/2024 3:46:36 PM AERONAUTICAL ENGINEERING OFFICER Procedure Note Deborah Stacy MD - 10/18/2024 [facility] Cardiac [place] [address] Transesophageal Echocardiographic Report Patient Name: STACY HERRON : 1945 (79y 9m) Gender: F Study Date: 10/18/2024 11:37:56 AM Ht(Inch): Wt(Lb): BSA: Counter Clerk [employer]: Location: [facility] Order Provider: DEBORAH STACY BMI: Quality: Good Ref Provider: DEBORAH STACY PROCEDURES: Transesophageal Echo Report: [id number] Echocardiography, transesophageal (NADINE)for guidance of a transcatheter [...] anesthesia. The probe was passed by the surgical training specialist. Standardviews were obtained in the transgastric, mid [...] the tricuspid valve along with intraprocedural guidance [id number]. 5. Structral NADINE performed to guide TTVR: [...] By: Deborah Stacy MD 10/18/2024 3:46:36 PM AERONAUTICAL ENGINEERING OFFICER Electronically Signed By: Deborah Stacy MD 10/18/2024 3:46:36 PM AERONAUTICAL ENGINEERING OFFICER us Deborah Stacy MD CV ECHO PROCEDURES Final Resul t * (ABNORMAL) POCT Activated clotting time, low range (10/18/2024 12:52 PM AERONAUTICAL ENGINEERING OFFICER) ACT 316(H) 123 - 168 sec POC Performer [id number] [facility] POC Device Number [id number] [facility] Blood 10/18/2024 12:5 2 PM AERONAUTICAL ENGINEERING OFFICER 10/18/2024 12:52 PM AERONAUTICAL ENGINEERING OFFICER Cristhian Rodgers MD LAB POCT ORDERABLES - DEVICE Final Result Performing Organization Address [facility] Co de Phone Number [facility] Department [place] [address] * (ABNORMAL) POCT Activated clotting time, low range (10/18/2024 12:27 PM AERONAUTICAL ENGINEERING OFFICER) ACT 289(H) 123 - 168 sec POC Performer [id number] [facility] POC Device Number [id number] [facility] Blood 10/18/2024 12:2 7 PM AERONAUTICAL ENGINEERING OFFICER 10/18/2024 12:27 PM AERONAUTICAL ENGINEERING OFFICER Cristhian Rodgers MD LAB POCT ORDERABLES - DEVICE Final Result Performing Organization Address [facility] de Phone Number [facility] [place] [address] * (ABNORMAL) POCT Activated clotting time, low range (10/18/2024 12:19 PM AERONAUTICAL ENGINEERING OFFICER) ACT 223(H) 123 - 168 sec POC Performer [id number] [facility] POC Device Number [id number] [facility] Blood 10/18/2024 12:1 9 PM AERONAUTICAL ENGINEERING OFFICER 10/18/2024 12:19 PM AERONAUTICAL ENGINEERING OFFICER Cristhian Rodgers MD LAB POCT ORDERABLES - DEVICE Final Result Performing Organization Address [facility] [place] [address] * SD AN PROCEDURE PLACEHOLDER (10/18/2024 11:32 AM AERONAUTICAL ENGINEERING OFFICER) Narrative Chanelle Doyle MD - 10/18/2024 11:32 AM AERONAUTICAL ENGINEERING OFFICER Chanelle Doyle MD 10/18/2024 11:32 AM Arterial Line Patient location: [place] Indication: continuous blood pressure monitoring and blood sampling needed Staff: Supervising provider: Chanelle Doyle MD Placed by: BUS ATTENDANT: Janice Springer CRNA Procedure prep: Prep [...] MD ANESTHESIA ORDERABLES F inal Result * SD AN ELECTIVE ENDOTRACHEAL AIRWAY, SD AN PROCEDURE PLACEHOLDER (10/18/2024 11:32 AM AERONAUTICAL ENGINEERING OFFICER) Narrative Chanelle Doyle MD - 10/18/2024 11:32 AM AERONAUTICAL ENGINEERING OFFICER Chanelle Doyle MD 10/18/2024 11:32 AM Airway [...] Result * POCT glucose (10/18/2024 10:42 AM AERONAUTICAL ENGINEERING OFFICER) Glucose, POC 99 70 - 199 mg/dL Blood 10/18/2024 10:4 2 AM AERONAUTICAL ENGINEERING OFFICER 10/18/2024 10:42 AM AERONAUTICAL ENGINEERING OFFICER us Griselda Scruggs MD LAB POCT ORDERABLES - DEVICE Fi nal Result [facility] [place] [address] * Check Sample (10/18/2024 10:40 AM AERONAUTICAL ENGINEERING OFFICER) ABO Rh B Positive [facility] OTHER 10/18/2024 10:4 0 AM AERONAUTICAL ENGINEERING OFFICER 10/18/2024 10:51 AM AERONAUTICAL ENGINEERING OFFICER us Cristhian Rodgers MD LAB BLOOD ORDERABLES Final Re sult Performing Organization Address [facility] Co de Phone Number [facility] [place] [address] BJ * Prepare RBC: 4 Units (10/18/2024 10:25 AM AERONAUTICAL ENGINEERING OFFICER) Product code [id number] Unit Number [id number] 4-E [facility] Product Blood Type BPOS [facility] Dispense Status RETURNED [facility] Product code H9798A14 [facility] Unit Number [id number] 3-P [facility] Product Blood Type BPOS [facility] Dispense Status RETURNED [facility] Product code [id number] [facility] Unit Number [id number] 5-P [facility] Product Blood Type BPOS [facility] Dispense Status RETURNED [facility] Product code [id number] [facility] Unit Number [id number] 2-5 [facility] Product Blood Type BPOS [facility] Dispense Status RETURNED [facility] Blood 10/18/2024 10:2 5 AM AERONAUTICAL ENGINEERING OFFICER 10/18/2024 10:24 AM AERONAUTICAL ENGINEERING OFFICER Narrative [facility] - 10/18/2024 2:34 PM AERONAUTICAL ENGINEERING OFFICER Specify Procedure:->transcatheter tricuspic valve implant Are special requirements needed? (All products are leukoreduced and CMV- safe)->No Julieta Gamino NP BLOOD BANK PRODUCT OR DERABLES Final Result Performing Organization Address [facility] Co de Phone Number [facility] [place] [address] * (ABNORMAL) eGFR (10/18/2024 3:48 AM AERONAUTICAL ENGINEERING OFFICER) eGFR 45(L) >=60 mL/min/1. 73 m2 Comment: [...] last reviewed 2021. Blood 10/18/2024 3:48 AM AERONAUTICAL ENGINEERING OFFICER 10/18/2024 4:44 AM AERONAUTICAL ENGINEERING OFFICER us Griselda Scruggs MD LAB BLOOD ORDERABLES Final Resu lt Performing Organization Address City/[facility]/ZIP Co de Phone Number [facility] [place] [address] * Differential, auto (10/18/2024 3:48 AM AERONAUTICAL ENGINEERING OFFICER) Neutrophil abs 3.1 1.5 - 6.5 K/cumm Imm gran abs 0.0 0.0 - 0.1 K/cumm [facility] Lymphocyte abs 1.5 0.8 - 3.3 K/cumm [facility] Monocyte abs 0.5 0.2 - 0.8 K/cumm [facility] Eosinophil abs 0.1 0.0 - 0.5 K/cumm [facility] Basophil abs 0.0 0.0 - 0.1 K/cumm [facility] Neutrophil pct 59.6 % [facility] Comment: Interpretive Data Percent cell count reference ranges are not reported, since discordance with absolute values may lead to misinterpretation of CBC data. Current Interpretive Data was last revised on 2017. Imm gran pct 0.2 % [facility] Comment: Interpretive Data Percent cell count reference ranges are not reported, since discordance with absolute values may lead to misinterpretation of CBC data. Current Interpretive Data was last revised on 2017. Lymphocyte pct 28.6 % [facility] Comment: Interpretive Data Percent cell count reference ranges are not reported, since discordance with absolute values may lead to misinterpretation of CBC data. Current Interpretive Data was last revised on 2017. Monocyte pct 9.9 % [facility] Comment: Interpretive Data Percent cell count reference ranges are not reported, since discordance with absolute values may lead to misinterpretation of CBC data. Current Interpretive Data was last revised on 2017. Eosinophil pct 1.3 % [facility] Comment: Interpretive Data Percent cell count reference ranges are not reported, since discordance with absolute values may lead to misinterpretation of CBC data. Current Interpretive Data was last revised on 2017. Basophil pct 0.4 % [facility] Comment: Interpretive Data Percent cell count reference ranges are not reported, since discordance with absolute values may lead to misinterpretation of CBC data. Current Interpretive Data was last revised on 2017. Blood 10/18/2024 3:48 AM AERONAUTICAL ENGINEERING OFFICER 10/18/2024 4:44 AM AERONAUTICAL ENGINEERING OFFICER us Griselda Scruggs MD LAB BLOOD ORDERABLES Final Resu lt [facility] [place] [address] * (ABNORMAL) CBC with auto differential (10/18/2024 3:48 AM AERONAUTICAL ENGINEERING OFFICER) [facility] WBC 5.3 3.8 - 9.9 K/cumm Hgb 11.9 11.9 - 15.5 g/dL [facility] Hct 35.5(L) 35.6 - 45.5 % [facility] Plt 226 150 - 400 K/cumm [facility] MPV 10.0 9.1 - 12.3 fL [facility] RBC 3.94 3.90 - 5.20 M/cumm [facility] MCV 90.1 81.3 - 96.4 fL [facility] MCH 30.2 27.1 - 33.3 pg [facility] MCHC 33.5 32.3 - 35.7 g/dL [facility] RDW CV 13.7 11.1 - 14.9 % [facility] RDW SD 45.1 35.7 - 48.1 fL [facility] NRBC abs 0.00 0.00 - 0.01 K/cumm [facility] Blood 10/18/2024 3:48 AM AERONAUTICAL ENGINEERING OFFICER 10/18/2024 4:44 AM AERONAUTICAL ENGINEERING OFFICER Griselda Scruggs MD LAB BLOOD ORDERABLES Final Resu lt [facility] [place] [address] * Protime-INR (10/18/2024 3:48 AM AERONAUTICAL ENGINEERING OFFICER) Pathologist [facility] PT 11.6 9.7 - 13.0 sec INR 1.07 0.90 - 1.20 [facility] Comment: Interpretive data Oral anticoagulant therapeutic ranges: Venous thromboembolism prophylaxis or treatment: 2.0-3.0 CARDIOLOGY Standard range: 2.0-3.0 High-intensity range: 2.5-3.5 Refer to indication-specific guidelines for appropriate target ranges for prosthetic heart valve replacement. Current interpretive data was last revised on 2019. Blood 10/18/2024 3:48 AM AERONAUTICAL ENGINEERING OFFICER 10/18/2024 4:51 AM AERONAUTICAL ENGINEERING OFFICER Griselda Scruggs MD LAB BLOOD ORDERABLES Final Resu lt Performing Organization Address [facility] de Phone Number [facility] [place] [address] * Phosphorus (10/18/2024 3:48 AM AERONAUTICAL ENGINEERING OFFICER) Pathologist [facility] Phosphorus, pl 4.3 2.3 - 4.5 mg/dL Blood 10/18/2024 3:48 AM AERONAUTICAL ENGINEERING OFFICER 10/18/2024 4:44 AM AERONAUTICAL ENGINEERING OFFICER Griselda Scruggs MD LAB BLOOD ORDERABLES Final Resu lt Performing Organization Address [facility] de Phone Number [facility] [place] [address] * Magnesium (10/18/2024 3:48 AM AERONAUTICAL ENGINEERING OFFICER) [facility] Magnesium 2.0 1.4 - 2.5 mg/dL Blood 10/18/2024 3:48 AM AERONAUTICAL ENGINEERING OFFICER 10/18/2024 4:44 AM AERONAUTICAL ENGINEERING OFFICER Griselda Scruggs MD LAB BLOOD ORDERABLES Final Resu lt Performing Organization Address [facility] [place] [address] * (ABNORMAL) Basic metabolic panel (10/18/2024 3:48 AM AERONAUTICAL ENGINEERING OFFICER) Pathologist [facility] Sodium 141 135 - 145 mmol/L Potassium, pl 3.7 3.3 - 4.9 mmol/L [facility] Chloride 103 97 - 110 mmol/L [facility] CO2 27 22 - 32 mmol/L [facility] Anion gap 11 2 - 15 mmol/L [facility] BUN 26(H) 6 - 25 mg/dL [facility] Creatinine 1.23(H) 0.60 - 1.10 mg/dL [facility] Glucose 103 70 - 199 mg/dL [facility] Comment: Interpretive Data Fasting glucose [...] 2022. Calcium 9.8 8.5 - 10.3 mg/dL [facility] Blood 10/18/2024 3:48 AM AERONAUTICAL ENGINEERING OFFICER 10/18/2024 4:44 AM AERONAUTICAL ENGINEERING OFFICER us Griselda Scruggs MD LAB BLOOD ORDERABLES Final Resu lt [facility] [place] [address] * eGFR (10/17/2024 4:08 AM AERONAUTICAL ENGINEERING OFFICER) eGFR 60 >=60 mL/min/1. 73 m2 Comment: [...] last reviewed 2021. Blood 10/17/2024 4:08 AM AERONAUTICAL ENGINEERING OFFICER 10/17/2024 5:29 AM AERONAUTICAL ENGINEERING OFFICER us Griselda Redding MD LAB BLOOD ORDERABLES Final Resul t Performing Organization Address [facility] de Phone Number [facility] [place] [address] * (ABNORMAL) CBC without differential (10/17/2024 4:08 AM AERONAUTICAL ENGINEERING OFFICER) WBC 3.5(L) 3.8 - 9.9 K/cumm Hgb 11.6(L) 11.9 - 15.5 g/dL [facility] Hct 34.2(L) 35.6 - 45.5 % [facility] Plt 205 150 - 400 K/cumm [facility] MPV 10.2 9.1 - 12.3 fL [facility] RBC 3.81(L) 3.90 - 5.20 M/cumm [facility] MCV 89.8 81.3 - 96.4 fL [facility] MCH 30.4 27.1 - 33.3 pg [facility] MCHC 33.9 32.3 - 35.7 g/dL [facility] RDW CV 14.0 11.1 - 14.9 % [facility] RDW SD 45.9 35.7 - 48.1 fL [facility] NRBC abs 0.00 0.00 - 0.01 K/cumm [facility] Blood 10/17/2024 4:08 AM AERONAUTICAL ENGINEERING OFFICER 10/17/2024 5:30 AM AERONAUTICAL ENGINEERING OFFICER us Griselda Redding MD LAB BLOOD ORDERABLES Final Resul t Performing Organization Address [facility] Co de Phone Number [facility] [place] [address] * Comprehensive metabolic panel (10/17/2024 4:08 AM AERONAUTICAL ENGINEERING OFFICER) Pathologist [facility] Sodium 142 135 - 145 mmol/L Potassium, pl 4.3 3.3 - 4.9 mmol/L [facility] Chloride 108 97 - 110 mmol/L [facility] CO2 27 22 - 32 mmol/L [facility] Anion gap 7 2 - 15 mmol/L [facility] BUN 22 6 - 25 mg/dL [facility] Creatinine 0.97 0.60 - 1.10 mg/dL [facility] Glucose 95 70 - 199 mg/dL [facility] Comment: Interpretive Data Fasting glucose [...] 2022. Calcium 9.5 8.5 - 10.3 mg/dL [facility] Bilirubin, total 0.7 0.1 - 1.2 mg/dL [facility] Protein, pl 6.6 6.5 - 8.5 g/dL [facility] Albumin 4.0 3.5 - 5.0 g/dL [facility] Alk phos 81 40 - 130 Units/L [facility] ALT 18 7 - 45 Units/L [facility] AST 20 10 - 45 Units/L [facility] Blood 10/17/2024 4:08 AM AERONAUTICAL ENGINEERING OFFICER 10/17/2024 5:29 AM AERONAUTICAL ENGINEERING OFFICER us Griselda Redding MD LAB BLOOD ORDERABLES Final Resul t [facility] [place] [address] * TYPE AND SCREEN 14 DAY (10/16/2024 12:11 PM AERONAUTICAL ENGINEERING OFFICER) Miguel, indirect Negative ABO Rh B Positive [facility] Blood 10/16/2024 12:1 1 PM AERONAUTICAL ENGINEERING OFFICER 10/16/2024 12:52 PM AERONAUTICAL ENGINEERING OFFICER Narrative MARTHA BURR - 10/16/2024 2:57 PM AERONAUTICAL ENGINEERING OFFICER Is this test being ordered in advance for a procedure?->Yes Expected date of procedure:->10/18/24 Has the patient been transfused in the past 3 months?->No Has the patient been in the past 3 months?->No Julieta Gamino NP LAB BLOOD BANK TEST O RDERABLES Final Result Performing Organization Address City/[facility]/ZIP Co de Phone Number [facility] [place] [address] * eGFR (10/16/2024 12:11 PM AERONAUTICAL ENGINEERING OFFICER) eGFR 63 >=60 mL/min/1. 73 m2 Comment: [...] reviewed 2021. Blood 10/16/2024 12:1 1 PM AERONAUTICAL ENGINEERING OFFICER 10/16/2024 12:53 PM AERONAUTICAL ENGINEERING OFFICER Julieta Gamino NP LAB BLOOD ORDERABLES Final Result Performing Organization Address [facility]/ZIP Co de Phone Number [facility] [place] [address] * Differential, auto (10/16/2024 12:11 PM AERONAUTICAL ENGINEERING OFFICER) Neutrophil abs 3.5 1.5 - 6.5 K/cumm Imm gran abs 0.0 0.0 - 0.1 K/cumm [facility] Lymphocyte abs 1.6 0.8 - 3.3 K/cumm [facility] Monocyte abs 0.5 0.2 - 0.8 K/cumm [facility] Eosinophil abs 0.1 0.0 - 0.5 K/cumm [facility] Basophil abs 0.0 0.0 - 0.1 K/cumm [facility] Neutrophil pct 60.2 % [facility] Comment: Interpretive Data Percent cell count reference ranges are not reported, since discordance with absolute values may lead to misinterpretation of CBC data. Current Interpretive Data was last revised on 2017. Imm gran pct 0.3 % [facility] Comment: Interpretive Data Percent cell count reference ranges are not reported, since discordance with absolute values may lead to misinterpretation of CBC data. Current Interpretive Data was last revised on 2017. Lymphocyte pct 28.3 % [facility] Comment: Interpretive Data Percent cell count reference ranges are not reported, since discordance with absolute values may lead to misinterpretation of CBC data. Current Interpretive Data was last revised on 2017. Monocyte pct 9.3 % [facility] Comment: Interpretive Data Percent cell count reference ranges are not reported, since discordance with absolute values may lead to misinterpretation of CBC data. Current Interpretive Data was last revised on 2017. Eosinophil pct 1.4 % [facility] Comment: Interpretive Data Percent cell count reference ranges are not reported, since discordance with absolute values may lead to misinterpretation of CBC data. Current Interpretive Data was last revised on 2017. Basophil pct 0.5 % [facility] Comment: Interpretive Data Percent cell count reference ranges are not reported, since discordance with absolute values may lead to misinterpretation of CBC data. Current Interpretive Data was last revised on 2017. Blood 10/16/2024 12:1 1 PM AERONAUTICAL ENGINEERING OFFICER 10/16/2024 12:53 PM AERONAUTICAL ENGINEERING OFFICER Julieta Gamino HITCH TECHNICIAN LAB BLOOD ORDERABLES Final Result Performing Organization Address [facility] [place] [address] * CPAP aPTT algorithm (10/16/2024 12:11 PM AERONAUTICAL ENGINEERING OFFICER) aPTT 30 28 - 38 sec Comment: Interpretive Data Heparin therapeutic range: 66.0 - 100.0 seconds. Range based on correlation with therapeutic heparin activity range of 0.3 - 0.7 Units/mL. Current interpretive data was last revised on 2023. Blood 10/16/2024 12:1 1 PM AERONAUTICAL ENGINEERING OFFICER 10/16/2024 12:11 PM AERONAUTICAL ENGINEERING OFFICER Julieta Gamino HITCH TECHNICIAN LAB BLOOD ORDERABLES Final Result Performing Organization Address [facility] [place] [address] * (ABNORMAL) Urinalysis reflex to microscopic and culture Urine, clean voided (10/16/2024 12:11 PM AERONAUTICAL ENGINEERING OFFICER) Color, ur Straw Yellow Clarity, ur Clear Clear [facility] Specific gravity, ur 1.014 1.003 - 1.030 [facility] pH, urine 6.5 [facility] Comment: Interpretive Data U rine pH is affected by diet, medications, systemic acid-base disturbances, and renal tubular function. pH may affect urinary stone formation. For example, urine pH below 6.0 may help reduce the tendency for calcium phosphate stones and pH greater than 6.0 may reduce the tendency for uric acid stone formation. Source: [facility] Current Interpretive Data was last revised on 2017 Protein, ur ql Negative Negative [facility] Glucose, ur ql Negative Negative [facility] Ketones, ur Negative Negative [facility] Bilirubin, ur Negative Negative [facility] Blood, ur Negative Negative [facility] Urobilinogen, ur <2.0 <2.0 mg/dL [facility] Nitrite, ur Negative Negative [facility] Leukocyte esterase, ur 1+(A) Negative [facility] UA reflex comment Reflex to microscopic UA will be performed. [facility] Urine, clean voided 10/16/2024 12:11 PM AERONAUTICAL ENGINEERING OFFICER 10/16/2024 12:48 PM AERONAUTICAL ENGINEERING OFFICER Julieta Gamino NP LAB MICROBIOLOGY - GE NERAL ORDERABLES Final Result Performing Organization Address City/[facility]/ZIP Co de Phone Number [facility] [place] [address] * CBC with auto differential (10/16/2024 12:11 PM AERONAUTICAL ENGINEERING OFFICER) WBC 5.8 3.8 - 9.9 K/cumm Hgb 13.3 11.9 - 15.5 g/dL [facility] Hct 40.2 35.6 - 45.5 % [facility] Plt 284 150 - 400 K/cumm [facility] MPV 10.4 9.1 - 12.3 fL [facility] RBC 4.38 3.90 - 5.20 M/cumm [facility] MCV 91.8 81.3 - 96.4 fL [facility] MCH 30.4 27.1 - 33.3 pg [facility] MCHC 33.1 32.3 - 35.7 g/dL [facility] RDW CV 13.8 11.1 - 14.9 % [facility] RDW SD 47.0 35.7 - 48.1 fL [facility] NRBC abs 0.00 0.00 - 0.01 K/cumm [facility] Blood 10/16/2024 12:1 1 PM AERONAUTICAL ENGINEERING OFFICER 10/16/2024 12:53 PM AERONAUTICAL ENGINEERING OFFICER Julieta Gamino NP LAB BLOOD ORDERABLES Final Result Performing Organization Address [facility]/ZIP Co de Phone Number [facility] [place] [address] * (ABNORMAL) Urinalysis, microscopic only (10/16/2024 12:11 PM AERONAUTICAL ENGINEERING OFFICER) Pathologist [facility] WBC, ur 6-10(A) 0 - 5 /HPF RBC, ur 0-2 0 - 2 /HPF [facility] Epithelial cells, renal, ur 1-5(A) 0 - 0 /HPF [facility] Mucous, ur Present(A) [facility] Culture Reflex Comment Reflex conditions for urine culture (WBC >10) not met. [facility] Urine, clean voided 10/16/2024 12:11 PM AERONAUTICAL ENGINEERING OFFICER 10/16/2024 12:48 PM AERONAUTICAL ENGINEERING OFFICER Julieta Gamino NP LAB URINE ORDERABLES Final Result Performing Organization Address [facility] de Phone Number [facility] [place] [address] * Protime-INR (10/16/2024 12:11 PM AERONAUTICAL ENGINEERING OFFICER) Pathologist [facility] PT 11.3 9.7 - 13.0 sec INR 1.05 0.90 - 1.20 [facility] Comment: Interpretive data Oral anticoagulant therapeutic ranges: Venous thromboembolism prophylaxis or treatment: 2.0-3.0 CARDIOLOGY Standard range: 2.0-3.0 High-intensity range: 2.5-3.5 Refer to indication-specific guidelines for appropriate target ranges for prosthetic heart valve replacement. Current interpretive data was last revised on 2019. Blood 10/16/2024 12:1 1 PM AERONAUTICAL ENGINEERING OFFICER 10/16/2024 12:11 PM AERONAUTICAL ENGINEERING OFFICER Julieta Gamino NP LAB BLOOD ORDERABLES Final Result Performing Organization Address [facility] Co de Phone Number [facility] [place] [address] * (ABNORMAL) Comprehensive metabolic panel (10/16/2024 12:11 PM AERONAUTICAL ENGINEERING OFFICER) Pathologist [facility] Sodium 141 135 - 145 mmol/L Potassium, pl 4.6 3.3 - 4.9 mmol/L [facility] Chloride 100 97 - 110 mmol/L [facility] CO2 29 22 - 32 mmol/L [facility] Anion gap 12 2 - 15 mmol/L [facility] BUN 18 6 - 25 mg/dL [facility] Creatinine 0.93 0.60 - 1.10 mg/dL [facility] Glucose 93 70 - 199 mg/dL [facility] Comment: Interpretive Data Fasting glucose [...] 2022. Calcium 10.6(H) 8.5 - 10.3 mg/dL [facility] Bilirubin, total 0.6 0.1 - 1.2 mg/dL [facility] Protein, pl 7.9 6.5 - 8.5 g/dL [facility] Albumin 4.8 3.5 - 5.0 g/dL [facility] Alk phos 98 40 - 130 Units/L [facility] ALT 23 7 - 45 Units/L [facility] AST 28 10 - 45 Units/L [facility] Blood 10/16/2024 12:1 1 PM AERONAUTICAL ENGINEERING OFFICER 10/16/2024 12:53 PM AERONAUTICAL ENGINEERING OFFICER us Julieta Gamino NP LAB BLOOD ORDERABLES Final Result [facility] [place] [address] * ECG 12 lead (10/16/2024 11:26 AM AERONAUTICAL ENGINEERING OFFICER) Pathologist [facility] Ventricular Rate EKG/Min 68 BPM [facility] Atrial Rate 68 BPM [facility] SD-Interval (MSEC) 168 ms [facility] QRS-Interval (MSEC) 76 ms [facility] QT-Interval (MSEC) 398 ms [facility] QTc 423 ms [facility] P [place] 64 degrees [facility] R [place] 43 degrees [facility] T [place] 47 degrees [facility] Diagnosis Normal sinus rhythm Normal ECG When compared with ECG of 11-MAY-2024 08:19, no significant change Confirmed by MARV GARCIA M.D ([id number]) on 10/16/2024 1:39:42 PM [facility] 10/16/2024 11:2 6 AM AERONAUTICAL ENGINEERING OFFICER 10/16/2024 1:39 PM AERONAUTICAL ENGINEERING OFFICER us Julieta Gamino NP ECG ORDERABLES Final Result [facility] [place] * COLONOSCOPY (11/12/2020 12:00 PM AERONAUTICAL ENGINEERING OFFICER) Anatomical Region Laterality Modality Other Narrative Procedure Note Paz Mejias MD - 11/12/2020 12:00 PM [facility] Patient Name: Stacy Herron Procedure Date: 11/12/2020 12:00 PM Date of : 1945 Admit Type: Outpatient Age: 75 Gender: Female Attending MD: Brandt Gunter Room: [facility] 3 Note Status: Finalized Procedure: [...] The scope was passed under direct vision.The [id number] endoscope was introduced through the anus and advanced to the terminal ileum. The colonoscopy was performed without difficulty. The patient tolerated the procedure well. The qualityof the bowel preparation was evaluated using the BBPS ([place] Bowel Preparation Scale) with scores of:Right Colon [...] On: 11/12/2020 12:00 PM Recognized by the [place] [employer] for promoting quality in endoscopy Paz Mejias MD ENDOSCOPY PROCEDUR ES Final Result from Last 3 Months or Most Recently Relevant to Health Maintenance Insurance MEDICARE [facility] SENIOR SUPPLEMENT MEDICARE [employer] SENIOR SUPPLEMENT MEDICARE [employer] SENIOR SUPPLEMENT Advance Directives For more information, please contact: [phone] Documents on File Type Date Recorded 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 ADVANCE DIRECTIVE 10/23/2024 2:41 AM POWER OF DECORATION CHECKER-MEDICAL ADVANCE DIRECTIVE 10/23/2024 2:41 AM LIVING WILL [...] 10:37 AM 11/12/2020 5:37 PM Care Teams Renal Dialysis Technician Relationship Specialty Start Date End Date Praveena Mcfarland MD [address] [place] [address] PCP - General Internal Medicine 10/11/19 Paul Lopez MD [address] [address] 10/11/19 Paz Mejias MD [address] [facility] [place] [address] Laboratory Veterinarian Gastroenterology 09/07/22 Hayden Huffman III, MD [address] [place] [address] Community Mental Health Social Worker Cardiology 12/14/22 Herson Elam MD [address] [place] [address] [place] [address] Surgeon Orthopedic Surgery 11/22/23 Gee Carrasco MD [address] [place] [address] [place] [address] Referring Physician Cardiology 02/29/24 Irasema Valdez MD [address] [place] [address] [place] [address] Community Mental Health Social Worker Cardiology 05/15/24 Cristhian Rodgers MD [address] [facility] [id number] [place] [address] Cardiothoracic Surgery 10/20/24 Bill Tovar MD [id number] [place] [address] Surgeon Colon and Rectal Surgery 11/15/24
== END 2024-12-03 11:18 | disposition home or self-care (01) ==
LOC: CHSLAB 11:19
PROVIDERS: PCP Internal Medicine; Visit Provider Internal Medicine
DX: R11.2 Nausea with vomiting, unspecified (principal); R19.7 Diarrhea, unspecified
CPT/HCPCS: 36415; 80053; 82150; 83690; 85025

== ENCOUNTER 2025-03-25 09:30 | Outpatient (RCR) | payer MEDICARE, SELFPAY ==
[2024-12-12 16:13] VITALS: BP 122/83; PULSE 62; RESP 16; O2SAT 99; BMI 26.4
== END 2025-03-27 10:43 | disposition home or self-care (01) ==
PROVIDERS: PCP Internal Medicine; Visit Provider Internal Medicine Cardiovascular Disease
DX: Z95.2 Presence of prosthetic heart valve (principal)
CPT/HCPCS: 93798

== ENCOUNTER 2025-05-15 09:15 | Outpatient (CLI) | payer MEDICARE, SELFPAY ==
--- OUTSIDE RECORDS SUMMARY | 2025-05-15 09:29 | XMS_ITS | Encounter Summary ---
Author Organization [facility] Address [address] [place] [address] Phone Care Team Providers Care Sales Promotion Officer Name Role Phone Praveena Mcfarland MD Primary Care Provider Paul Lopez MD Unavailable Paz Mejias MD Unavailable + Nathanael VALERIO MD, Robert C. 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 Gender Identity Female 02/06/2020 12:07 PM CDT Sexual Orientation Not on file documented as of this encounter Plan of Treatment Not on file documented as of this encounter Procedures Procedure Name Priority Date/Time Associated Diagnosis Comments CARDIOLOGY DOCUMENT SCAN 11/19/2024 documented in this encounter Results * Cardiology Document Scan (11/19/2024) Anatomical Region Laterality Modality Other us Provider Scanning CV CARDIAC SERVICES PROCEDURES Final Result documented in this encounter Visit Diagnoses Not on filedocumented in this encounter Care Teams Sales Promotion Officer Relationship Specialty Start Date End Date Praveena Mcfarland MD [address] [place] [address] PCP - General Internal Medicine 10/11/19 Paul Lopez MD [address] [place] [address] 10/11/19 Paz Mejias MD [address] [place] [address] Fixed Income Portfolio Manager Gastroenterology 09/07/22 Hayden Huffman III, MD [address] [place] [address] Trouble Operator Cardiology 12/14/22 Herson Elam MD [address] [place] [address] [address] [place] [address] Surgeon Orthopedic Surgery 11/22/23 Gee Carrasco MD [address] [place] [address] [address] [place] [address] Referring Physician Cardiology 02/29/24 Darryn Valdez MD [address] [place] [address] [address] [place] [address] Trouble Operator Cardiology 05/15/24 Cristhian Gonzalez MD [address] [place] [address] [address] [place] [address] Cardiothoracic Surgery 10/20/24 Bill Tovar MD [phone] [place] [address] Surgeon Colon and Rectal Surgery 11/15/24 documented as of this encounter
--- OUTSIDE RECORDS SUMMARY | 2025-05-15 09:29 | XMS_ITS | Clinical Summary ---
Author Organization [facility] Address [address] [place] [address] Care Team Providers Care Coordinator Cardiopulmonary Services Name Role Phone Praveena Mcfarland MD Primary Care Provider Paul Lopez MD Unavailable Paz Mejias MD Unavailable + Nathanael VALERIO MD, Hayden Singh Unavailable Herson Elam MD Unavailable Gee Carrasco MD Unavailable [phone] Darryn Valdez MD Unavailable [phone] Cristhian Gonzalez MD Unavailable Bill Tovar MD Unavailable Allergies [...] by mouth daily 10/21/19 25 026 Active Additional Information Patient not taking.Reported on 12/27/2024 potassium chloride ER (KLOR-CON) 10 mEq CR tablet Take 1 tablet/capsule (10 mEq total) by mouth daily 30 tablet/caps ule 11 01/02/20 25 026 Active furosemide (LASIX) 20 mg tablet Take 0.5 tablets (10 mg total) by mouth 2 (two) times a week 12 tablet 3 03/18/20 25 Active apixaban (ELIQUIS) 5 mg tabletIndications: s/p TTVR Take 1 tablet (5 mg total) by mouth every 12 (twelve) hours 180 tablet 3 04/19/20 25 Active apixaban (ELIQUIS) 5 mg tabletIndications: s/p TTVR Take 1 tablet (5 mg total) by mouth every 12 (twelve) hours 180 tablet 1 11/12/19 25 025 Discontin ued(Reord er) Active Problems Problem Noted Date Diagnosed Date Hyperlipidemia 10/19/2024 Assessment & Plan (10/19/2024 11:13 AM INSPECTOR ADVANCED COMPOSITE): - continue Simvastatin - low fat low cholesterol diet S/P tricuspid valve replacement 10/18/2024 Assessment & Plan (10/19/2024 11:09 AM INSPECTOR ADVANCED COMPOSITE): S/p TTVR 10/18 with Evoque Remove figure [...] 10/16/2024 Assessment & Plan (10/17/2024 1:57 PM INSPECTOR ADVANCED COMPOSITE): Patient with history of symptomatic severe tricuspid [...] 05/03/2024 Assessment & Plan (10/18/2024 12:05 PM INSPECTOR ADVANCED COMPOSITE): Goal SBP <160 Assessment & Plan (10/17/2024 1:56 PM INSPECTOR ADVANCED COMPOSITE): Continue home propranolol, lisinopril Diastolic heart failure 05/03/2024 Assessment & Plan (10/18/2024 2:27 PM INSPECTOR ADVANCED COMPOSITE): Acute on chronic Diuresis this admission No plans to restart milrinone post-TTVR Shortness of breath 04/30/2024 Tricuspid regurgitation, non-Ebstein's related 0 02/29/2024 Assessment & Plan (10/18/2024 12:05 PM INSPECTOR ADVANCED COMPOSITE): TTVR 10/18 Aftercare following right knee joint replacement surgery 01/06/2024 History of colonic polyps 10/03/2020 Change in bowel habit 02/08/2020 Lactose intolerance 02/08/2020 Incontinence of feces 06/21/2018 Overview (06/21/2018): Added automatically from request for surgery [id number] Fecal incontinence 08/08/2015 Assessment & Plan (10/16/2024 9:24 PM INSPECTOR ADVANCED COMPOSITE): 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 status post Medtronic device stimulation - continue home Lomotil GERD (gastroesophageal reflux disease) Assessment & Plan (10/16/2024 9:23 PM INSPECTOR ADVANCED COMPOSITE): Continue home PPI Resolved Problems Problem Noted Date Diagnosed Date Resolved Date Primary osteoarthritis of right knee 08/03/2023 01/06/[address] of the abdomen 02/08/2020 0 05/28/2021 Encounters Date Type Department Care Team Description 03/26/2025 8:36 AM CDT - 03/26/2025 11:59 PM CDT Hospital Encounter [address] [address] Discharge Disposition: Discharge to home or self care 03/26/2025 8:36 AM CDT - 03/26/2025 11:59 PM CDT Hospital Encounter [address] [address] Aftercare following right knee joint replacement surgery Discharge Disposition: Discharge to home or self care 03/15/2025 Orders Only [facility] Medicine Cardiology [address] [place] [address] [place] [address] Darryn Valdez MD from Last 3 Months Surgical History Surgery [...] bowel syndrome) COPD (chronic obstructive pulmonary disease) PONV (postoperative nausea and vomiting) Sleep apnea [...] on file 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:54 AM INSPECTOR ADVANCED COMPOSITE Gender Identity Female 02/06/2020 12:07 PM CDT Sexual Orientation Not on file Obstetrics History Last Filed Vital Signs Vital Sign Reading Time Taken Comments Blood Pressure 118/74 12/27/2024 8:54 AM CDT Pulse 63 12/27/2024 8:54 AM CDT Temperature 36.4 C (97.5 F) 10/20/2024 9:37 AM INSPECTOR ADVANCED COMPOSITE Respiratory Rate 16 10/20/2024 12:36 PM INSPECTOR ADVANCED COMPOSITE Oxygen Saturation 94% 11/26/2024 2:16 PM CDT Inhaled Oxygen Concentration - - Weight 63 kg (139 lb) 12/27/2024 8:54 AM CDT Height 154.9 cm (5' 1) 12/27/2024 8:54 AM CDT Body Mass Index 26.26 12/27/2024 8:54 AM CDT Plan of Treatment Health Maintenance Due Date Last Done Comments Depression Screening 1945 Hepatitis C Screening 1945 DTaP/Tdap/Td Vaccine (1 - Tdap) 1958 Hepatitis B Screening 1965 Pneumococcal vaccine 65+ (1 of 2 - PCV) 1966 Zoster Vaccine (1 of 2) 1997 Well Visit 65+ 01/12/2012 Osteoporosis Screening-Bone Density Scan 11/10/2018 11/10/2016 Influenza Vaccine (#1) 2025 Fall Risk Assessment 10/20/2025 10/20/2024, 11/11/19 24 Colon Cancer Screening-CT Colonography Discontinued 11/12/2020 Colon Cancer Screening-Colonoscopy Discontinued 11/12/2020 Colon Cancer Screening-DNA Stool Discontinued 11/12/19 Colon Cancer Screening-FIT Discontinued 11/12/2020 Colon Cancer Screening-FOBT Discontinued 11/12/2020 Colon Cancer Screening-Sigmoidoscopy Discontinued 11/12/2020 Colorectal Cancer Screening Discontinued Breast Cancer Screening-Mammogram Discontinued 06/04/2021, 05/29/2020, 04/03/2019, Additional history exists Medical Devices Implanted Type Area Terrazzo Supervisor Device Identifier Shelf Expiration Date Model / Serial / Lot [employer] Ramiro Angio-Seal Vip 6fr Closere Device [id number] - [id number] - [id number] Implanted:Qty: 1 on 05/11/2024 by Darryn Valdez MD at [facility] Collagen Right: Groin [employer] Ramiro 01/01/2025 [id number] / [id number] / [id number] Medtronic Inc Neurostimulator Generator 3058 - [id number] - [id number] Implanted:Qty: 1 on 12/17/2022 by Nereyda Kemp MD at [facility] Other - see comments Left: Buttocks Medtronic Inc 12/31/2022 3058 / [id number] / NA Description:Implant pause pe rformed prior to opening implant to sterile field Medtronic Inc Interstim 28cm Quadripolar Mri Web Marketing Analyst Neurostimulator [id number] - [id number] - [id number] Implanted:Qty: 1 on 12/17/2022 by Nereyda Kemp MD at [facility] Other - see comments Right: Sacrum Medtronic Inc 2024 [id number] / NA / [id number] Description:Implant pause pe rformed prior to opening implant to sterile field [employer] Evoque 48mm Transcatheter Tricuspid Heart Valve [id number] - [id number] - [id number] Implanted:Qty: 1 on 10/18/2024 by Darryn Valdez MD at [facility] Prosthetic Valve N/A: Tricuspid Valve [employer] 10/23/2025 [id number] / [id number] / Stimulator Stimulator Left: Hip Vagus Nerve Stimulator- 3 Implanted: 3 (Quantity not on file) Vagus Nerve Stimulator Left: Hip Medtronic [facility] System Closure Repair Femoral Artery Suture Mediated Perclose Prostyle 21027-11 - [id number] - [id number] Implanted:Qty: 1 on 10/18/2024 by Darryn Valdez MD at [facility] Vascular Closure Device Left: Femoral Vein [employer] 07/19/2026 14348-51 / [id number] / [id number] [employer] Vascular System Closure Repair Femoral Artery Suture Mediated Perclose Prostyle 69522-61 - [id number] - [id number] Implanted:Qty: 1 on 10/18/2024 by Darryn Valdez MD at [facility] Vascular Closure Device Left: Femoral Vein [employer] 07/19/2026 06542-13 / [id number] / [id number] [employer] Cement Bone High Viscosity Gentamicin Radiopaque Single Dose Hemiarthroplpasty Simplex [id number] Pmma 6195-1-010 - [id number] Implanted:Qty: 1 on 11/21/2023 by Herson Elam MD at [facility] Right: Knee [employer] 12/17/2024 6195-1-010 / / [id number] [employer] Cement Bone High Viscosity Gentamicin Radiopaque Single Dose Hemiarthroplpasty Simplex 62vef11ll Pmma 6195-1-010 - [id number] Implanted:Qty: 1 on 11/21/2023 by Herson Elam MD at [facility] Right: Knee [employer] 12/17/2024 6195-1-010 / / [id number] [employer] Inc Attune S+ Cement Fix Bearing Knee 4 Baseplate Tibial [id number] - [id number] Implanted:Qty: 1 on 11/21/2023 by Herson Elam MD at [facility] Right: Knee [employer] Inc 04/18/2033 [id number] / / [id number] [employer] Inc Attune Cemented Posterior Stabilize Knee Right 5 Narrow Component [id number] - [id number] Implanted:Qty: 1 on 11/21/2023 by Herson Elam MD at [facility] Right: Knee [employer] Inc 06/18/2033 [id number] / / [id number] [employer] Inc Attune 35mm Cemented Medialize Knee Dome Patellar Aox Sterile [id number] - [id number] Implanted:Qty: 1 on 11/21/2023 by Herson Elam MD at [facility] Right: Knee [employer] Inc 04/18/2028 [id number] / / [id number] [employer] Inc Attune 6mm Posterior Stabilize Fix Bearing Knee 5 Insert Tibial [id number] - [id number] Implanted:Qty: 1 on 11/21/2023 by Herson Elam MD at [facility] Right: Knee [employer] Inc 05/19/2028 [id number] / / [id number] Explanted Type Area Terrazzo Supervisor Device Identifier Shelf Expiration Date Model / Serial / Lot Medtronic Neuro 3889-28 Interstim 28cm Quadripolar Lead Neurostimulator - [id number] Implanted:Qty: 1 on 08/04/2018 by Nereyda Kemp MD at [facility] Explanted:Qty: 1 on 12/17/2022 at [facility] N/A: Back Medtronic Neuro 04/27/2022 3889-28 / / [id number] Medtronic Neuro 3058 Interstim Ii 2inx1.7in 4 Electrode Solar Thermal Technician Sacral Nerve - [id number] Implanted:Qty: 1 on 08/17/2018 by Nereyda Kemp MD at [facility] Explanted:Qty: 1 on 12/17/2022 by Nereyda Kemp MD at [facility] Medtronic Neuro 11/16/2019 3058 / / Description:Explant disposed of in biohazard waste. Procedures Procedure Name Priority Date/Time Associated Diagnosis Comments NM BONE IMAGING 3 PHASE Schedule Routine, Read Routine (OP Routine) 03/26/2025 12:27 PM CDT Aftercare following right knee joint replacement surgery COLONOSCOPY 11/12/2020 12:00 PM INSPECTOR ADVANCED COMPOSITE from Last 3 Months or Most Recently Relevant to Health Maintenance Results * NM Bone Imaging 3 Phase (03/26/2025 12:27 PM CDT) Anatomical Region Laterality Modality N/A Nuclear Medicine 03/26/2025 12:5 0 PM CDT Narrative 03/26/2025 12:52 PM CDT EXAM DESCRIPTION: NM BONE IMAGING 3 PHASE REASON FOR STUDY: Right knee pain, RTKA 11/21/2023 RADIOPHARMACEUTICAL: 25.4 mCi Tc-99m MDP via a left antecubital IV site TECHNIQUE: Limited three phase scintigrams of the bilateral knees were obtained. COMPARISON: Prior Bone Scan: No prior bone scan. Prior Anatomic imaging: Right knee radiograph 12/27/2024. FINDINGS: Neither can be a broad overlap between normal and abnormal radiotracer uptake during the first 2 years following arthroplasty. Very subtle hyperemia of the right knee. Note is made of the right knee arthroplasty with mild radiotracer uptake at the femoral bone prosthesis interface on the blood pool images and there is low level radiotracer uptake at the bone prosthesis interface on the delayed images and mild activity of the patella. IMPRESSION: Low level radiotracer uptake of the right knee arthroplasty is within the range of normal given the time frame since surgery. THIS IS AN ELECTRONICALLY VERIFIED FINAL REPORT 03/26/2025 12:52 PM - Electronically signed by Bradford Machado M.D. CH: Report ID: [id number] Reading Location: [id number] Procedure Note Bradford Machado Jr., MD - 03/26/2025 EXAM DESCRIPTION: NM BONE IMAGING 3 PHASE REASON FOR STUDY: Right knee pain, RTKA 11/21/2023 RADIOPHARMACEUTICAL: 25.4 mCi Tc-99m MDP via a left antecubital IVsite TECHNIQUE: Limited three phase scintigrams of the bilateral knees were obtained. COMPARISON: Prior Bone Scan: No prior bone scan. Prior Anatomic imaging: Right knee radiograph 12/27/2024. FINDINGS: Neither can be a broad overlap between normal and abnormal radiotracer uptake during the first 2 years following arthroplasty. Very subtlehyperemia of the right knee. Note is made of the right knee arthroplasty with mild radiotracer uptake at the femoral bone prosthesis interface on the bloodpool images and there is low level radiotracer uptake at the bone prosthesis interface on the delayed images and mild activity of the patella. IMPRESSION: Low level radiotracer uptake of the right knee arthroplasty is within the range of normal given the time frame since surgery. THIS IS AN ELECTRONICALLY VERIFIED FINAL REPORT 03/26/2025 12:52 PM - Electronically signed by Bradford Machado M.D. CH: FRANCESCO Report ID: [id number] Reading Location: [id number] [place] [facility] [place] PROCEDURES Fin al Result * COLONOSCOPY (11/12/2020 12:00 PM INSPECTOR ADVANCED COMPOSITE) Anatomical Region Laterality Modality Other Narrative Procedure Note Paz Mejias MD - 11/12/2020 12:00 PM CST [facility] Patient Name: Stacy Herron Procedure Date: 11/12/2020 12:00 PM Date of : 1945 Admit Type: Outpatient Age: 75 Gender: Female Attending MD: Brandt Gunter Room: [facility] ENDOSCOPY ROOM 3 Note Status: Finalized Procedure: Colonoscopy Indications: High risk colon cancer surveillance: Personalhistory of colonic polyps, Last colonoscopy: 2015;incidental change in bowel habit. Referring MD: Praveena Mcfarland MD Providers: Paz Mejisa M.D. Medicines: Monitored Anesthesia Care Complications: No [...] The scope was passed under direct vision.The [id number] endoscope was introduced through the anus and advanced to the terminal ileum. The colonoscopy was performed without difficulty. The patient tolerated the procedure well. The qualityof the bowel preparation was evaluated using the BBPS ([place] Bowel Preparation Scale) with scores of:Right Colon [...] On: 11/12/2020 12:00 PM Recognized by the [place] [employer] for promoting quality in endoscopy Paz Mejias MD ENDOSCOPY PROCEDUR ES Final Result from Last 3 Months or Most Recently Relevant to Health Maintenance Insurance MEDICARE [facility] Address: [address] [address] [place] [address] [employer] SENIOR SUPPLEMENT MEDICARE A[employer] SENIOR SUPPLEMENT MEDICARE A[employer] SENIOR SUPPLEMENT Advance Directives For more information, please contact: [phone] Documents on File Type Date Recorded Patient Director On Air Expl anation ADVANCE DIRECTIVE 10/23/2024 2:41 AM POWER OF TICKET SORTER-MEDICAL ADVANCE DIRECTIVE 10/23/2024 2:41 AM LIVING WILL [...] 10:37 AM 11/12/2020 5:37 PM Care Teams Coordinator Cardiopulmonary Services Relationship Specialty Start Date End Date Praveena Mcfarland MD [address] [place] [address] PCP - General Internal Medicine 10/11/19 Paul Lopez MD [address] [place] [address] 10/11/19 Paz Mejias MD [address] [place] [address] Cotton Candy Maker Gastroenterology 09/07/22 Hayden Huffman III, MD [address] [place] [address] Long Chain Beamer Cardiology 12/14/22 Herson Elam MD [address] [place] [address] [address] [place] [address] Surgeon Orthopedic Surgery 11/22/23 Gee Carrasco MD [address] [place] [address] [place] [address] Referring Physician Cardiology 02/29/24 Darryn Valdez MD [address] [place] [address] [place] [address] Long Chain Beamer Cardiology 05/15/24 Cristhian Gonzalez MD [address] [place] [address] [place] [address] Cardiothoracic Surgery 10/20/24 Bill Tovar MD [address] [facility] [phone] [place] [address] Surgeon Colon and Rectal Surgery 11/15/24
--- OUTSIDE RECORDS SUMMARY | 2025-05-15 09:29 | XMS_ITS | Encounter Summary ---
Author Organization [facility] Healthcare Address [address] [place] [address] Care Team Providers Care Infection Preventionist Name Role Phone Praveena Mcfarland MD Primary Care Provider Paul Lopez MD Unavailable Nereyda Kemp MD Unavailable [phone] Paz Mejias MD Unavailable + Nathanael VALERIO MD, Robert C. Unavailable [phone] Herson Elam MD Unavailable [phone] Gee Carrasco MD Unavailable Darryn Valdez MD Unavailable [phone] Cristhian Gonzalez MD Unavailable Bill Tovar MD Unavailable Encounter Details Date Type Department Care Team (Late st Contact Info) Description 04/04/2024 Telephone [facility] [address] [place] [address] Charu Rai, RN Social History Tobacco Use Types Packs/Day [...] on file 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:54 AM CUSTOMER ACCOUNT MANAGER Gender Identity Female 02/06/2020 12:07 PM CDT Sexual Orientation Not on file documented as of this encounter Plan of Treatment Not on file documented as of this encounter Visit Diagnoses Not on filedocumented in this encounter Care Teams Infection Preventionist Relationship Specialty Start Date End Date Praveena Mcfarland MD [address] [place] [address] PCP - General Internal Medicine 10/11/19 Paul Lopez MD [address] [place] [address] 10/11/19 Nereyda Kemp MD [address] [facility] [phone] [place] [address] Surgeon Colon and Rectal Surgery 09/07/2211/14 Paz Mejias MD [address] [place] [address] Dry Cell Battery Assembler Gastroenterology 09/07/22 Hayden Huffman III, MD [address] [place] [address] Technical Maintenance Specialist Cardiology 12/14/22 Herson Elam MD [address] [place] [address] [address] [place] [address] Surgeon Orthopedic Surgery 11/22/23 Gee Carrasco MD [address] [place] [address] [place] [address] Referring Physician Cardiology 02/29/24 Darryn Valdez MD [address] [place] [address] [place] [address] Technical Maintenance Specialist Cardiology 05/15/24 Cristhian Gonzalez MD [address] [place] [address] [address] [place] [address] Cardiothoracic Surgery 10/20/24 Bill Tovar MD [address] [facility] [phone] [place] [address] Surgeon Colon and Rectal Surgery 11/15/24 documented as of this encounter
--- OUTSIDE RECORDS SUMMARY | 2025-05-15 09:29 | XMS_ITS | Patient Health Record ---
Author Organization [facility] Address [address] [place], [place] [address] Care Team Providers Care Assistant Quality Manager Name Role Phone CHELSI GRAFF Unavailable [phone] Praveena Mcfarland Unavailable Unavailable Reason For Referral No Information Plan Of Treatment No Information Insurance Providers Payer Name Payer Address Payer Phone Subscriber Number Group Number Insured Name Patient Relationship to Insured Coverage Start Date Coverage End Date Medicare Part B [place] [address] [place] [id number] MJ GARIBAY Self - patient is the insured AETNA [facility] [address] [address] [place] [address] [id number] MJ GARIBAY Self - patient is the insured
[2025-05-15 09:41] LABS: Hematocrit 40.8 % (35.0-42.0); Hemoglobin 13.2 g/dL (11.7-13.8); Mean Corpuscular HGB Conc 32.4 g/dL (32-36); Mean Corpuscular Hemoglobin 29.3 pg (27.0-31.0); Mean Corpuscular Volume 90.5 fL (78.0-102.0); Platelet Count Result 226 K/mm3 (150-420); Red Blood Count 4.51 M/mm3 (4.20-5.40); White Blood Count 3.6 K/mm3 (4.8-10.8)
[2025-05-15 09:44] LABS: Add Urine Microscopic? YES; Appearance Urine Clear (Clear); Glucose Urine UA Negative (Negative); Leukocyte Esterase Ur Trace (Negative); Nitrate Urine Negative (Negative); Specific Grav Ur 1.015 (1.010-1.020)
[2025-05-15 10:09] LABS: Alanine Aminotransferase 29 U/L (6-35); Albumin Level 4.8 g/dL (3.5-5.1); Alkaline Phosphatase 102 U/L (38-126); Anion Gap 8 mmol/L (4-12); Aspartate Amino Transferase 35 U/L (14-36); Bilirubin,Total 0.7 mg/dL (0.2-1.3); Blood Urea Nitrogen 20 mg/dL (7-17); Calcium 10.4 mg/dL (8.4-10.2); Carbon Dioxide 31 mmol/L (22-30); Chloride 106 mmol/L (98-107); Cholesterol 189 mg/dL (0-200); Estimated Glomerular Filt Rate > 60; Glucose 90 mg/dL (65-110); HDL Direct 43 mg/dL; Iron 105 ug/dL (37-170); Osmolality Calculated 302 mOsm/kg (285-295); Potassium 4.8 mmol/L (3.4-5.0); Sodium 145 mmol/L (137-145); Total Protein 7.7 g/dL (6.3-8.2); Triglycerides 120 mg/dL (<150)
[2025-05-15 10:27] LABS: Free T4 Free Thyroxine 1.07 ng/dL (0.78-2.19)
[2025-05-15 10:40] LABS: Thyroid Stimulating Hormone 2.280 uIU/mL (0.465-4.680)
[2025-05-15 10:44] LABS: Ferritin 49.10 ng/mL (11.1-264)
== END 2025-05-15 09:16 | disposition home or self-care (01) ==
PROVIDERS: PCP Internal Medicine; Visit Provider Internal Medicine
DX: D64.9 Anemia, unspecified (principal); I10 Essential (primary) hypertension; E78.2 Mixed hyperlipidemia; E61.6 Vanadium deficiency; R53.82 Chronic fatigue, unspecified; E03.4 Atrophy of thyroid (acquired); E55.9 Vitamin D deficiency, unspecified
CPT/HCPCS: 36415; 80053; 80061; 81001; 82306; 82728; 83540; 84439; 84443; 85027